=== PATIENT | female | born 1940 | race Caucasian/White ===

== ENCOUNTER 2016-03-19 12:13 | Inpatient (IN) | payer MEDICARE, OTHER ==
[~2016-03-19] VITALS: Ht 170.2 cm; Wt 128.5 kg
[~2016-03-19 12:13] MED LIST: ALLE180T33 PO; ALLO10TA PO; AMIT10TA PO; AMLO5TAB2 PO; ASPI1TAB PO; ASPI81TAEC PO; ATEN100T PO; BUPR300T34 PO; CALC1CAP31 PO; COLC1TAB5 PO; DIOV80TA3 PO; HYDR-3716 PO; HYDR12CA PO; KEFL250C6 PO; LEVO125T3 PO; LEVO150T7 PO; LEVOTHYROXINE 0.15 MG TAB (150 MCG) PO SCH; NASA1SPR; NEXI40CA PO; SIMV40TA2 PO; TOLT1CAP4 PO; VALS160T PO; VALS1TAB47 PO; VITA100066 PO; VITA100T PO; VITMTA PO; ZOLP10TA2 PO
[2016-03-19 13:50] LABS: BASO % 0.3 % (0.0-1.0); EOS # 0.4 K/mm3 (0.0-0.50); EOS % 3.2 % (0.0-3.0); LARGE UNSTAINED CELL # 0.2 K/mm3 (0.0-0.4); LARGE UNSTAINED CELL % 1.3 % (0.0-4.0); LYMPH # 0.5 K/mm3 (1.5-4.5); LYMPH % 4.2 % (24.0-44.0); MEAN CORPUSCULAR HGB CONC 32.9 g/dl (32.0-36.5); MEAN CORPUSCULAR VOLUME 94.2 fl (80.0-96.0); MONO # 0.4 K/mm3 (0.0-0.8); NEUTROPHILS # 11.1 K/mm3 (1.8-7.7); NEUTROPHILS % 88.1 % (36.0-66.0); PLATELET COUNT, AUTOMATED 275 k/mm3 (150-450); RED CELL DISTRIBUTION WIDTH 13.4 % (11.5-14.5); WHITE BLOOD COUNT 12.6 K/mm3 (4.0-10.0)
[2016-03-19 14:18] LABS: ALBUMIN 2.8 GM/DL (3.2-5.2); ALBUMIN/GLOBULIN RATIO 0.85 (1.00-1.93); ALKALINE PHOSPHATASE 99 U/L (45-117); ALT/SGPT 16 U/L (12-78); ANION GAP 12 MEQ/L (8-16); AST/SGOT 16 U/L (15-37); BILIRUBIN,DIRECT 0.1 MG/DL (0.0-0.2); BILIRUBIN,TOTAL 0.4 MG/DL (0.2-1.0); BLOOD UREA NITROGEN 42 MG/DL (7-18); CALCIUM LEVEL 8.9 MG/DL (8.8-10.2); CARBON DIOXIDE LEVEL 24 MEQ/L (21-32); CHLORIDE LEVEL 106 MEQ/L (98-107); CREATININE FOR GFR 3.04 MG/DL (0.55-1.02); GLUCOSE, FASTING 106 MG/DL (83-110); POTASSIUM SERUM 4.9 MEQ/L (3.5-5.1); SODIUM LEVEL 142 MEQ/L (136-145); TOTAL PROTEIN 6.1 GM/DL (6.4-8.2)
--- NOTE | 2016-03-19 14:40 | REP ---
PELVIS, SINGLE VIEW: Single AP view of the pelvis is performed. There is no evidence of acute fracture or dislocation. Metallic clips are seen in the pelvis. There are mild degenerative changes at each hip joint. IMPRESSION: No acute fracture or dislocation. Signed by Juliano Figueroa MD 03/19/2016 04:09 P
--- NOTE | 2016-03-19 14:41 | REP ---
LEFT HIP: Two views of the left hip are performed and demonstrate no fracture, dislocation or intrinsic bone disease. There are mild degenerative changes at the hip joint. IMPRESSION: No fracture or dislocation. Signed by Juliano Figueroa MD 03/19/2016 04:09 P
--- NOTE | 2016-03-19 14:42 | REP ---
LEFT KNEE: Four views of the left knee are performed. There is a nondisplaced fracture of the distal femur. There is no other evidence of acute fracture or dislocation. There is mild diffuse spurring. There is a joint effusion. IMPRESSION: Non displaced fracture, distal femur. Signed by Juliano Figueroa MD 03/19/2016 04:09 P
--- NOTE | 2016-03-19 14:43 | REP ---
LEFT FEMUR: AP and lateral views of the left femur are performed. There is nondisplaced fracture of the distal femur with a joint effusion a the knee. No other fracture or dislocation is seen of the visualized osseous structures. IMPRESSION: Nondisplaced fracture, distal femur. Signed by Juliano Figueroa MD 03/19/2016 04:09 P
--- NOTE | 2016-03-19 14:45 | REP ---
CHEST: AP supine film of the chest is performed. COMPARISON: 06/07/2015 There is no acute infiltrate. There is mild bibasilar fibroatelectatic change. The heart is not significantly enlarged. There is mild calcification and tortuosity of the thoracic aorta. IMPRESSION: No acute infiltrate. Mild bibasilar fibroatelectatic change. Signed by Juliano Figueroa MD 03/19/2016 04:09 P
--- NOTE | 2016-03-19 14:48 | REP ---
LEFT LOWER LEG: AP and lateral views of the left lower leg are performed. Nondisplaced fracture of the distal femur is noted. The tibia and fibula demonstrate no evidence of fracture or dislocation. There is inferior calcaneal spurring. IMPRESSION: No acute fracture or dislocation of tibia or fibula. Signed by Juliano Figueroa MD 03/19/2016 04:10 P
[2016-03-19 15:06] LABS: INR 1.03
[2016-03-19] MEDS ORDERED: VALS1TAB46 PO (15:10)
[2016-03-19] MEDS ORDERED: AMLO5TAB2 PO (15:10)
[2016-03-19] MEDS ORDERED: NEXI40CA PO (15:10)
[2016-03-19] MEDS ORDERED: MELO7.5T6 PO (15:10)
--- NOTE | 2016-03-19 15:19 | REP ---
Left lower extremity Duplex Doppler venous ultrasound: Real time compression and duplex Doppler interrogation of the left lower extremity deep venous system is performed. The left common femoral, superficial femoral and popliteal veins are fully compressible with transducer pressure and demonstrate normal spontaneous and phasic flow, without evidence of deep venous thrombosis. Impression: No evidence of deep venous thrombosis of the left lower extremity femoral popliteal venous system. Signed by Juliano Figueroa MD 03/19/2016 03:11 P
[2016-03-19] MEDS ORDERED: LR 1,000 ML IV SCH (15:30)
[2016-03-19] MEDS ORDERED: ONDANSETRON 4MG/2ML VIAL (J2405) IV PRN (15:30)
[2016-03-19] MEDS ORDERED: MORPHINE 2 MG/ML 1ML SYRINGE IV PRN (15:30)
[2016-03-19] MEDS ORDERED: MORPHINE 2 MG/ML 1ML SYRINGE As Ordered ONE (16:24)
--- NOTE | 2016-03-19 17:51 | EDDOCDS ---
Nurse's Notes [facility] Name: Ainsley Romero Age: 75 yrs Sex: Female : 1940 Arrival Date: 03/19/2016 Time: 12:13 Bed 17 Private MD: Irena Armenta N. Diagnosis: Nondisplaced transverse fracture of shaft of left femur-nondisplaced distal femur fracture;Fall (on) (from) unspecified stairs and steps;Weakness;Chest pain, unspecified Presentation: 03/19 12:25 Presenting complaint: EMS states: nonambulatory since fall 5 days ago. Seen in ED at kr3 time of fall with negative Xrays. Adult Sepsis Screening: The patient does not have new or worsening altered mentation. Patient's respiratory rate is less than 22. Systolic blood pressure is greater than 100. Patient has a qSOFA score of 0- Negative Sepsis Screen. Status: Patient is not a x ray equipment servicer or dependent. Suicide/Homicide risk assessment- the patient denies having any suicidal and/or homicidal ideations. Transition of care: patient was not received from another setting of care. 12:25 Acuity: CAROLIN Level 3 kr3 12:25 Method Of Arrival: Ambulance kr3 12:30 Presenting complaint: Patient states: pain left knee and reports unable to get up and kr3 walk. Triage Assessment: 12:36 General: Appears distressed, Behavior is cooperative. Pain: Location: left knee Pain kr3 currently is 5 out of 10 on a pain scale. The patient is triaged at the bedside. See Assessment in Nurses Notes section of ED record. Neurological: Level of Consciousness is awake, alert. GI: Abdomen is obese. Musculoskeletal: Reports painful ROM of left knee. Historical: - Allergies: IODINEIODINE CONTAINING (Anaphylaxis); IV Dye (Anaphylaxis); - Home Meds: 1. allopurinol 100 mg Oral tab 1 tab once daily 2. amitriptyline 10 mg Oral tab 3 tabs nightly 3. amlodipine 10 mg Oral tab once daily 4. atenolol 100 mg Oral tab 1 tab nightly 5. bupropion HCl 300 mg Oral Tb24 1 tab once daily as needed 6. calcitriol 0.25 mcg oral cap 1 cap once daily 7. cephalexin 250 mg Oral tab every 8 hours 8. multivitamin Oral cap daily 9. Nasacort 55 mcg Nasal spra 2 spray daily 10. simvastatin 40 mg Oral tab 1 tab nightly 11. levothyroxine 150 mcg alternate with 125 mcg daily Oral tab 1 tab once daily 12. fexofenadine 180 mg Oral tab 1 tab once daily 13. Diovan 80 mg Oral tab 1 tab once daily 14. esomeprazole magnesium 40 mg Oral cpDR 1 cap 2 times per day 15. tolterodine 2 mg oral tab 1 tab 2 times per day 16. Percocet Oral ran out quickly reports - PMHx: Environmental allergies; GERD; Gout; Hypercholesterolemia; Hypertension; Hypothyroidism; Kidney stones; Obesity; Polycystic Kidney Disease; - PSHx: kidney stone surgery; Gastric Bypass; gastric bypass reconnect; Hysterectomy; - Social history: Smoking status: Patient states was never smoker of tobacco. No barriers to communication noted, The patient speaks fluent Latvian, Speaks appropriately for age. - Family history: Not pertinent. - : The pt / caregiver states he / she is not on anticoagulants. Home medication list is obtained from the patient, [employer] import data. - Exposure Risk Screening:: None identified. Screenin:37 Screening information is obtained from the patient. Fall risk: At risk due to prior kr3 history of falls. Assistance ADL's: Requires assistance with bathing, assistance is provided by family members, dressing, assistance is provided by family members, housework, assistance is provided by family members. Abuse/DV Screen: The patient / caregiver reports he/she is: not in a situation that causes fear, pain or injury. Nutritional screening: No deficits noted. Advance Directives: Currently, there is no health care proxy. There is no Power of Stabilizing Machine Operator. home support is adequate. Assessment: 12:38 General: Appears moaning in pain with motion of left leg or touching left leg. kr3 13:30 Reassessment: Patient appears in no apparent distress at this time. resting on kr3 stretcher with eyes closed. 14:40 Reassessment: patient away from department, in UL and Xray. kr3 15:22 Reassessment: Patient appears in no apparent distress at this time. moans in pain kr3 whenever touched. If left alone appears comfortable with eyes closed. 15:37 Pain: Location: left leg, abdomen and chest Pain currently is 7 out of 10 on a pain kr3 scale. 16:50 Reassessment: Patient appears in no apparent distress at this time. Patient states kr3 feeling better. assisted to bedpan. 17:32 Reassessment: Patient appears in no apparent distress at this time. Pain: Pain kr3 currently is 4 out of 10 on a pain scale. Neurological: Level of Consciousness is awake, alert. Respiratory: Respiratory effort is even, unlabored. Derm: Skin is pink, warm & dry. Vital Signs: 12:35 BP 176 / 84; Pulse 74; Resp 18; Temp 97.6(TE); Pulse Ox 97% on R/A; Weight 117.9 kg; dem1 Height 5 ft. 7 in. (170.18 cm); Pain 6/10; 15:36 BP 146 / 97; Pulse 68; Resp 16; Pulse Ox 93% on R/A; Pain 7/10; kr3 17:31 BP 147 / 93; Pulse 70; Resp 16; Temp 98.8(O); Pulse Ox 96% on R/A; Pain 4/10; kr3 12:35 Body Mass Index 40.71 (117.90 kg, 170.18 cm) [facility] Vitals: 12:35 Log In Time N/A - ambulance arrival. [facility] ED Course: 12:15 Patient visited by Dmitri Henning PCA. jrd 12:15 Patient moved to Waiting jrd 12:24 Irena Armenta is Private Physician. jrd 12:24 Patient visited by Dmitri Henning PCA. jrd 12:26 Chante Escobar,RN is Primary Nurse. jrd 12:26 Triage Initiated kr3 12:26 Patient moved to 17 jrd 12:35 Patient visited by Dayron Chong. dem1 12:37 The patient / caregiver is instructed regarding the plan of care and ED course. kr3 Accompanied by Family Member, Patient has correct armband on for positive identification. Bed in low position. Call light in reach. Side rails up X2. 13:02 Eulalio Almaraz MD is Attending Physician. ml 13:02 Patient visited by Eulalio Almaraz MD. ml 13:32 Liver Profile Sent. kr3 13:32 Troponin Sent. kr3 13:32 CIP Sent. kr3 13:32 MED Profile Sent. kr3 13:32 CBC with Diff Sent. kr3 13:59 Patient visited by Chante Escobar RN. kr3 14:55 Pelvis Returned. EDMS 14:55 Hip, (AP/Lat) Returned. EDMS 14:55 Knee, Complete Returned. EDMS 14:55 Femur Returned. EDMS 14:55 Chest, 1 View Returned. EDMS 14:55 Tibia/Fibula Returned. EDMS 15:05 SabasBrittany is Hospitalizing Provider. ml 15:06 Inserted saline lock: 20 gauge in right antecubital area. kr3 15:18 EKG done. (by ED staff). Reviewed by Eulalio Almaraz MD. ct3 15:22 Patient visited by Caprice Cordero PCA. ct3 15:28 US Lower Extremity R/O DVT Returned. EDMS 15:29 No procedures done that require assistance. Knee immobilizer applied on left knee. kr3 Patient with positive distal sensation and brisk distal capillary refill after application. 15:30 PCR was scanned into [employer] and attached to record. gb 15:41 [facility] Payment Agreement was scanned into [employer] and attached to record. jp5 15:54 Assisted with bedpan. kr3 16:02 BLOOD CULTURES Sent. kr3 16:36 Pelvis Returned. EDMS 16:36 Hip, (AP/Lat) Returned. EDMS 16:36 Knee, Complete Returned. EDMS 16:36 Femur Returned. EDMS 16:36 Chest, 1 View Returned. EDMS 16:36 Tibia/Fibula Returned. EDMS Administered Medications: 16:27 Drug: morphine 2 mg [morphine 2 mg/mL intravenous cartridge (1 mL)] Route: IVP; Site: kr3 right antecubital; 17:14 Follow up: Response: Pain is decreased kr3 Order Results: Lab Order: CBC with Diff; SPEC'M 03/19/16 13:31 Test: WHITE BLOOD COUNT; Value: 12.6; Range: 4.0-10.0; Abnormal: Above high normal; Units: K/mm3; Status: F Test: RED BLOOD COUNT; Value: 3.98; Range: 4.00-5.40; Abnormal: Below low normal; Units: M/mm3; Status: F Test: HEMOGLOBIN; Value: 12.3; Range: 12.0-16.0; Units: g/dl; Status: F Test: HEMATOCRIT; Value: 37.5; Range: 36.0-47.0; Units: %; Status: F Test: MEAN CORPUSCULAR VOLUME; Value: 94.2; Range: 80.0-96.0; Units: fl; Status: F Test: MEAN CORPUSCULAR HEMOGLOBIN; Value: 31.0; Range: 27.0-33.0; Units: pg; Status: F Test: MEAN CORPUSCULAR HGB CONC; Value: 32.9; Range: 32.0-36.5; Units: g/dl; Status: F Test: RED CELL DISTRIBUTION WIDTH; Value: 13.4; Range: 11.5-14.5; Units: %; Status: F Test: PLATELET COUNT, AUTOMATED; Value: 275; Range: 150-450; Units: k/mm3; Status: F Test: NEUTROPHILS %; Value: 88.1; Range: 36.0-66.0; Abnormal: Above high normal; Units: %; Status: F Test: LYMPH %; Value: 4.2; Range: 24.0-44.0; Abnormal: Below low normal; Units: %; Status: F Test: MONO %; Value: 3.0; Range: 0.0-5.0; Units: %; Status: F Test: EOS %; Value: 3.2; Range: 0.0-3.0; Abnormal: Above high normal; Units: %; Status: F Test: BASO %; Value: 0.3; Range: 0.0-1.0; Units: %; Status: F Test: LARGE UNSTAINED CELL %; Value: 1.3; Range: 0.0-4.0; Units: %; Status: F Test: NEUTROPHILS #; Value: 11.1; Range: 1.8-7.7; Abnormal: Above high normal; Units: K/mm3; Status: F Test: LYMPH #; Value: 0.5; Range: 1.5-4.5; Abnormal: Below low normal; Units: K/mm3; Status: F Test: MONO #; Value: 0.4; Range: 0.0-0.8; Units: K/mm3; Status: F Test: EOS #; Value: 0.4; Range: 0.0-0.50; Units: K/mm3; Status: F Test: BASO #; Value: 0.0; Range: 0.0-0.2; Units: K/mm3; Status: F Test: LARGE UNSTAINED CELL #; Value: 0.2; Range: 0.0-0.4; Units: K/mm3; Status: F Lab Order: MED Profile; [facility] 03/19/16 13:31 Test: GLUCOSE, FASTING; Value: 106; Range: 83-110; Units: MG/DL; Status: F Test: BLOOD UREA NITROGEN; Value: 42; Range: 7-18; Abnormal: Above high normal; Units: MG/DL; Status: F Test: CREATININE FOR GFR; Value: 3.04; Range: 0.55-1.02; Abnormal: Above high normal; Units: MG/DL; Status: F Test: GLOMERULAR FILTRATION RATE; Value: 16.0; Range: >39; Abnormal: Below low normal; Status: F Test: SODIUM LEVEL; Value: 142; Range: 136-145; Units: MEQ/L; Status: F Test: POTASSIUM SERUM; Value: 4.9; Range: 3.5-5.1; Units: MEQ/L; Status: F Test: CHLORIDE LEVEL; Value: 106; Range: 98-107; Units: MEQ/L; Status: F Test: CARBON DIOXIDE LEVEL; Value: 24; Range: 21-32; Units: MEQ/L; Status: F Test: ANION GAP; Value: 12; Range: 8-16; Units: MEQ/L; Status: F Test: CALCIUM LEVEL; Value: 8.9; Range: 8.8-10.2; Units: MG/DL; Status: F Test Note: ; Units are mL/min/1.73 m2 Chronic Kidney Disease Staging per NKF: Stage I & II GFR >=60 Normal to Mildly Decreased Stage III GFR 30-59 Moderately Decreased Stage IV GFR 15-29 Severely Decreased Stage V GFR <15 Very Little GFR Left ESRD GFR <15 on LOADING UNIT OPERATOR Lab Order: CIP; [facility] 03/19/16 13:31 Test: CPK CREATINE PHOSPHOKINASE; Value: 49; Range: 26-192; Units: U/L; Status: F Test: CK-MB VALUE MASS; Value: 1.3; Range: 0.0-3.6; Units: NG/ML; Status: F Test: MB/CK RELATIVE INDEX; Value: 2.65; Range: < OR =4; Status: F Test Note: ; DIAGNOSIS CRITERIA MMB ng/ml Relative Index (RI) NON-AMI < or = 5 N/A FIGUEROA ZONE > 5 < or = 4 AMI > 5 > 4 Lab Order: Troponin; [facility] 03/19/16 13:31 Test: TROPONIN I; Value: < 0.02; Range: < 0.10; Units: NG/ML; Status: F Test Note: ; Troponin I Reference Interval for [employer] LOCI: 99th Percentile= 0.00-0.045 ng/ml Risk Stratification: <= 0.10 ng/ml Decreased Risk for Adverse Clinical Events. 0.10-1.50 ng/ml Increased Risk for Adverse Clinical Events. Evaluation of additional criterion and/or repeat testing in 2-6 hours is suggested to rule out myocardial damage. >= 1.50 ng/ml Indicative of Myocardial Injury. Lab Order: Liver Profile; [facility] 03/19/16 13:31 Test: AST/SGOT; Value: 16; Range: 15-37; Units: U/L; Status: F Test: ALT/SGPT; Value: 16; Range: 12-78; Units: U/L; Status: F Test: ALKALINE PHOSPHATASE; Value: 99; Range: 45-117; Units: U/L; Status: F Test: BILIRUBIN,TOTAL; Value: 0.4; Range: 0.2-1.0; Units: MG/DL; Status: F Test: BILIRUBIN,DIRECT; Value: 0.1; Range: 0.0-0.2; Units: MG/DL; Status: F Test: TOTAL PROTEIN; Value: 6.1; Range: 6.4-8.2; Abnormal: Below low normal; Units: GM/DL; Status: F Test: ALBUMIN; Value: 2.8; Range: 3.2-5.2; Abnormal: Below low normal; Units: GM/DL; Status: F Test: ALBUMIN/GLOBULIN RATIO; Value: 0.85; Range: 1.00-1.93; Abnormal: Below low normal; Status: F Lab Order: PT/INR; [facility] 03/19/16 13:30 Test: PROTHROMBIN TIME; Value: 13.6; Range: 12.3-14.5; Units: SECONDS; Status: F Test: INR; Value: 1.03; Status: F Test Note: ; THERAPUTIC HUMAN INR VALUES INDICATIONS NORMAL RANGES PROPHYLAXIS/TREATMENT OF: VENOUS THROMBOSIS 2.0-3.0 PULMONARY EMBOLISM 2.0-3.0 PREVENTION OF SYSTEMIC EMBOLISM FROM: TISSUE HEART VALVES 2.0-3.0 ACUTE MYOCARDIAL INFARCTION 2.0-3.0 VALVULAR HEART DISEASE 2.0-3.0 ATRIAL FIBRILLATION 2.0-3.0 MECHANICAL VALVES(HIGH RISK) 2.5-3.5 RECURRENT MYOCARDIAL INFARCTION 2.5-3.5 Lab Order: PTT; [facility] 03/19/16 13:30 Test: PARTIAL THROMBOPLASTIN TIME; Value: 31.5; Range: 26.6-37.1; Units: SECONDS; Status: F Lab Order: Type & Screen; [facility] 03/19/16 15:44 Test: BLOOD TYPE; Value: A POS; Status: F Test: AB SCREEN (INDIRECT PAPITO)GEL; Value: NEGATIVE; Status: F Lab Order: URINALYSIS; [facility] 03/19/16 16:55 Test: APPEARANCE, URINE; Value: TURBID; Range: CLEAR; Abnormal: Above high normal; Status: F Test: COLOR, URINE; Value: YELLOW; Range: YELLOW; Status: F Test: PH,URINE; Value: 6.0; Range: 5.0-9.0; Units: UNITS; Status: F Test: SPECIFIC GRAVITY URINE AUTO; Value: 1.009; Range: 1.002-1.035; Status: F Test: PROTEIN, URINE AUTO; Value: 2+; Range: NEGATIVE; Abnormal: Above high normal; Units: mg/dL; Status: F Test: GLUCOSE, URINE (UA) AUTO; Value: NEGATIVE; Range: NEGATIVE; Units: mg/dL; Status: F Test: KETONE, URINE AUTO; Value: NEGATIVE; Range: NEGATIVE; Units: mg/dL; Status: F Test: UROBILINOGEN, URINE AUTO; Value: 0.2; Range: 0.0-2.0; Units: mg/dL; Status: F Test: BILIRUBIN, URINE AUTO; Value: NEGATIVE; Range: NEGATIVE; Status: F Test: NITRITE, URINE AUTO; Value: POSITIVE; Range: NEGATIVE; Status: F Test: LEUKOCYTE ESTERASE, URINE AUTO; Value: 3+; Range: NEGATIVE; Abnormal: Above high normal; Status: F Test: BLOOD, URINE BLOOD; Value: 1+; Range: NEGATIVE; Abnormal: Above high normal; Status: F Test: WBC, URINE AUTO; Value: TNTC; Range: 0-3; Abnormal: Above high normal; Units: /HPF; Status: F Test: RBC, URINE AUTO; Value: 66; Range: 0-3; Abnormal: Above high normal; Units: /HPF; Status: F Test: BACTERIA, URINE AUTO; Value: 3+; Range: NEGATIVE; Abnormal: Above high normal; Status: F Test: SQUAMOUS EPITHELIAL CELL UR AU; Value: 0; Range: 0-6; Units: /HPF; Status: F Test: HYALINE CAST, URINE AUTO; Value: 0; Range: 0-1; Units: /LPF; Status: F Radiology Order: Chest, 1 View Test: Chest, 1 View REASON FOR EXAMINATION: fall; CHEST:; ; AP supine film of the chest is performed.; ; COMPARISON: 06/07/2015; ; There is no acute infiltrate. There is mild bibasilar fibroatelectatic change.; The heart is not significantly enlarged. There is mild calcification and; tortuosity of the thoracic aorta.; ; IMPRESSION:; ; No acute infiltrate. Mild bibasilar fibroatelectatic change.; ; ; Signed by; Juliano Figueroa MD 03/19/2016 04:09 P; Radiology Order: Pelvis Test: Pelvis REASON FOR EXAMINATION: fall; PELVIS, SINGLE VIEW:; ; Single AP view of the pelvis is performed.; ; There is no evidence of acute fracture or dislocation. Metallic clips are seen in; the pelvis. There are mild degenerative changes at each hip joint.; ; IMPRESSION:; ; No acute fracture or dislocation.; ; ; Signed by; Juliano Figueroa MD 03/19/2016 04:09 P; Radiology Order: Hip, (AP/Lat) Test: Hip, (AP/Lat) REASON FOR EXAMINATION: fall; LEFT HIP:; ; Two views of the left hip are performed and demonstrate no fracture, dislocation; or intrinsic bone disease. There are mild degenerative changes at the hip joint.; ; ; IMPRESSION:; ; No fracture or dislocation.; ; ; Signed by; Juliano Figueroa MD 03/19/2016 04:09 P; Radiology Order: Femur Test: Femur REASON FOR EXAMINATION: pain; LEFT FEMUR:; ; AP and lateral views of the left femur are performed.; ; There is nondisplaced fracture of the distal femur with a joint effusion a the; knee. No other fracture or dislocation is seen of the visualized osseous; structures.; ; IMPRESSION:; ; Nondisplaced fracture, distal femur.; ; ; Signed by; Julinao Figueroa MD 03/19/2016 04:09 P; Radiology Order: Tibia/Fibula Test: Tibia/Fibula REASON FOR EXAMINATION: pain; LEFT LOWER LEG:; ; AP and lateral views of the left lower leg are performed. Nondisplaced fracture; of the distal femur is noted. The tibia and fibula demonstrate no evidence of; fracture or dislocation. There is inferior calcaneal spurring.; ; IMPRESSION:; ; No acute fracture or dislocation of tibia or fibula.; ; ; Signed by; Juliano Figueroa MD 03/19/2016 04:10 P; Radiology Order: US Lower Extremity R/O DVT Test: US Lower Extremity R/O DVT REASON FOR EXAMINATION: pain; Left lower extremity Duplex Doppler venous ultrasound:; ; Real time compression and duplex Doppler interrogation of the left lower; extremity deep venous system is performed. The left common femoral, superficial; femoral and popliteal veins are fully compressible with transducer pressure and; demonstrate normal spontaneous and phasic flow, without evidence of deep venous; thrombosis.; ; Impression:; ; No evidence of deep venous thrombosis of the left lower extremity femoral; popliteal venous system.; ; ; Signed by; Juliano Figueroa MD 03/19/2016 03:11 P; Radiology Order: Knee, Complete Test: Knee, Complete REASON FOR EXAMINATION: pain; LEFT KNEE:; ; Four views of the left knee are performed.; ; There is a nondisplaced fracture of the distal femur. There is no other evidence; of acute fracture or dislocation. There is mild diffuse spurring. There is a; joint effusion.; ; IMPRESSION:; ; Non displaced fracture, distal femur.; ; ; Signed by; Juliano Figueroa MD 03/19/2016 04:09 P; Outcome: 15:06 Decision to Hospitalize by Provider. ml 15:29 Ultrasound Study completed. kr3 16:30 Admission hand-off: Report Faxed Fax receipt verified by Carla on PCU, room is dirty, [facility] patient informed. 17:31 Discharge Assessment: patient administered narcotics - yes. Patient was admitted to the [address] or transferred to another facility. The following High Risk Discharge criteria are identified: None. Admitted to PCU accompanied by nurse, accompanied by tech, family with patient, via stretcher, on monitor, with chart. Condition: stable. Property :Personal belongings accompany Pt. 17:50 Patient left the ED. [facility] Signatures: Dispatcher [employer] EDMS Eulalio Almaraz MD MD ml Fannie Hernandez, Reg Reg gb Chante Escobar,RN RN kr3 Caprice Cordero, NURSE EXAMINER NURSE EXAMINER ct3 Dayron Chong dem1 Dmitri Henning, NURSE EXAMINER NURSE EXAMINER jrd Lynn Shin jp5 Corrections: (The following items were deleted from the chart) 12:36 12:35 BP 176 / 84; Pulse 74bpm; Resp 18bpm; Pulse Ox 97% RA; Temp 97.6F Temporal; Pain dem1 09/08; dem1 MTDD
--- NOTE | 2016-03-19 17:51 | EDDOCDS ---
Physician Documentation [facility] Name: Ainsley Romero Age: 75 yrs Sex: Female : 1940 Arrival Date: 03/19/2016 Time: 12:13 Bed 17 Private MD: Irena Armenta N. Disposition: 03/19/16 15:06 Hospitalization ordered by Brittany Obregon for Inpatient Admission. Preliminary diagnosis are Nondisplaced transverse fracture of shaft of left femur - nondisplaced distal femur fracture, Fall (on) (from) unspecified stairs and steps, Weakness, Chest pain, unspecified. - Bed requested for PCU. - Status is Inpatient Admission. kr3 - Condition is Stable. - Problem is new. - Symptoms are unchanged. Historical: - Allergies: IODINEIODINE CONTAINING (Anaphylaxis); IV Dye (Anaphylaxis); - Home Meds: 1. allopurinol 100 mg Oral tab 1 tab once daily 2. amitriptyline 10 mg Oral tab 3 tabs nightly 3. amlodipine 10 mg Oral tab once daily 4. atenolol 100 mg Oral tab 1 tab nightly 5. bupropion HCl 300 mg Oral Tb24 1 tab once daily as needed 6. calcitriol 0.25 mcg oral cap 1 cap once daily 7. cephalexin 250 mg Oral tab every 8 hours 8. multivitamin Oral cap daily 9. Nasacort 55 mcg Nasal spra 2 spray daily 10. simvastatin 40 mg Oral tab 1 tab nightly 11. levothyroxine 150 mcg alternate with 125 mcg daily Oral tab 1 tab once daily 12. fexofenadine 180 mg Oral tab 1 tab once daily 13. Diovan 80 mg Oral tab 1 tab once daily 14. esomeprazole magnesium 40 mg Oral cpDR 1 cap 2 times per day 15. tolterodine 2 mg oral tab 1 tab 2 times per day 16. Percocet Oral ran out quickly reports - PMHx: Environmental allergies; GERD; Gout; Hypercholesterolemia; Hypertension; Hypothyroidism; Kidney stones; Obesity; Polycystic Kidney Disease; - PSHx: kidney stone surgery; Gastric Bypass; gastric bypass reconnect; Hysterectomy; - Social history: Smoking status: Patient states was never smoker of tobacco. No barriers to communication noted, The patient speaks fluent Polish, Speaks appropriately for age. - Family history: Not pertinent. - : The pt / caregiver states he / she is not on anticoagulants. Home medication list is obtained from the patient, [employer] import data. - Exposure Risk Screening:: None identified. Vital Signs: 03/19 12:35 BP 176 / 84; Pulse 74; Resp 18; Temp 97.6(TE); Pulse Ox 97% on R/A; Weight 117.9 kg / dem1 259.93 lbs; Height 5 ft. 7 in. (170.18 cm); Pain 6/10; 15:36 BP 146 / 97; Pulse 68; Resp 16; Pulse Ox 93% on R/A; Pain 7/10; kr3 17:31 BP 147 / 93; Pulse 70; Resp 16; Temp 98.8(O); Pulse Ox 96% on R/A; Pain 4/10; kr3 12:35 Body Mass Index 40.71 (117.90 kg, 170.18 cm) dem1 MDM: 13:17 IV Saline Lock ordered. ml 13:21 US Lower Extremity R/O DVT Ordered. EDMS 13:21 Chest, 1 View Ordered. EDMS 13:21 Pelvis Ordered. EDMS 13:21 Hip, (AP/Lat) Ordered. EDMS 13:21 Femur Ordered. EDMS 13:21 Tibia/Fibula Ordered. EDMS 13:21 Knee, Complete Ordered. EDMS 13:21 CBC with Diff Ordered. EDMS 13:21 MED Profile Ordered. EDMS 13:21 CIP Ordered. EDMS 13:21 Troponin Ordered. EDMS 13:21 Liver Profile Ordered. EDMS 14:26 CBC with Diff Reviewed. ml 14:26 MED Profile Reviewed. ml 14:26 Liver Profile Reviewed. ml 14:26 CIP Reviewed. ml 14:26 Troponin Reviewed. ml 14:28 Financial registration complete. 5 14:47 BED REQUEST+ADM ordered. EDMS 14:50 Type & Screen Ordered. EDMS 14:50 PT/INR Ordered. EDMS 14:51 PTT Ordered. EDMS 15:04 Knee Immobilizer ordered. ml 15:09 PT/INR Reviewed. ml 15:09 Chest, 1 View Reviewed. ml 15:09 Pelvis Reviewed. ml 15:09 Hip, (AP/Lat) Reviewed. ml 15:09 Femur Reviewed. ml 15:09 Tibia/Fibula Reviewed. ml 15:09 Knee, Complete Reviewed. ml 15:10 ECG WITH READING ER PHYS+CARDIAG ordered. EDMS 15:30 PCR was scanned into [employer] and attached to record. gb 15:40 Admission / Observation Status ordered. EDMS 15:41 REGULAR DIET ordered. EDMS 15:41 CARDIAC MARKER PANEL Ordered. EDMS 15:41 [facility] Payment Agreement was scanned into [employer] and attached to record. jp5 15:44 PHYSICAL THERAPY EVAL & TREAT ordered. EDMS 15:44 Foot, complete Ordered. EDMS 15:45 URINALYSIS Ordered. EDMS 15:45 URINE CULTURE Ordered. EDMS 15:45 BLOOD CULTURES Ordered. EDMS 15:45 BLOOD CULTURES Ordered. EDMS 16:27 morphine 2 mg IVP once ordered. kr3 Administered Medications: 16:27 Drug: morphine 2 mg [morphine 2 mg/mL intravenous cartridge (1 mL)] Route: IVP; Site: kr3 right antecubital; 17:14 Follow up: Response: Pain is decreased kr3 Signatures: Dispatcher [employer] EDMS Eulalio Almaraz MD MD ml Sleeman, Kacey, RN RN [facility] Fannie Hernandez Reg Reg gb Robie, Kathleen,RN RN kr3 Lynn Shin jp5 The chart was reviewed and I authenticate all verbal orders and agree with the evaluation and treatment provided.Attachments: 15:41 [facility] Payment Agreement [email or web address] MTDD
[2016-03-19 18:00] VITALS: BP 164/96
--- NOTE | 2016-03-19 19:11 | ECGEPIP ---
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
[2016-03-19 19:46] VITALS: BP 136/76
[2016-03-19] MEDS: FEXOFENADINE 60 MG TAB PO SCH (21:17)
[2016-03-19] MEDS: cefTRIAXone SOD 1 GM in D5W MINI-BAG PLUS 50 ML IV SCH (21:17)
[2016-03-19] MEDS: CALCITRIOL 0.25 MCG CAP (S0169) PO SCH (21:17)
[2016-03-19] MEDS: buPROPion **XL** TABLET 150MG (WELLBUTRIN XL) PO SCH (21:18)
[2016-03-19] MEDS: MULTIVITAMINS/MINERALS THERAP 1 TAB PO SCH (21:18)
[2016-03-19] MEDS: ALLOPURINOL 100 MG TAB PO SCH (21:18)
[2016-03-19] MEDS: ATENOLOL 50 MG TAB PO SCH (21:18)
[2016-03-19] MEDS: ATORVASTATIN 20 MG TAB PO SCH (21:18)
[2016-03-19] MEDS: AMITRIPTYLINE 10 MG TAB PO SCH (21:18)
[2016-03-19] MEDS: MIRALAX *UNIT DOSE* 17GM PACKET PO SCH (21:19)
[2016-03-19] MEDS: SENOKOT S TAB PO SCH (21:19)
[2016-03-19] MEDS: PANTOPRAZOLE 40MG TAB (PROTONIX) PO SCH (21:19)
[2016-03-19] MEDS: HEPARIN SOD (PORCINE) 5000 UNITS/ML VIAL SC SCH (21:21)
[2016-03-19] MEDS: VALSARTAN 80 MG TAB (DIOVAN) PO SCH (21:23)
[2016-03-19] MEDS: amLODIPine 5 MG TAB PO SCH (21:23)
[2016-03-19] MEDS: TOLTERODINE TARTRATE 2 MG LA CAP (DETROL LA) PO SCH (21:27)
[2016-03-19] MEDS: PERCOCET 5MG/325MG TAB PO PRN (21:27)
[2016-03-19 23:21] VITALS: BP 153/72
--- NOTE | 2016-03-20 00:03 | HPE ---
DATE OF ADMISSION: 03/19/2016 PRIMARY CARE PROVIDER: AFTAB Gonzales CHIEF COMPLAINT: Unable to ambulate with left knee pain. HISTORY OF THE PRESENT ILLNESS: This is a 75-year-old female patient with underlying medical history of gastroesophageal reflux disease (GERD), gout, dyslipidemia, hypertension, hypothyroidism, kidney stones, obesity, polycystic kidney disease. As per patient, patient had a fall about 5 days ago, was seen in the emergency department (ED) with negative x-rays. Subsequently, the patient was sent home, but since the patient was home, she is not able to ambulate. As per patient, patient has multiple falls, on average falling once a month and prior to 5 days ago, the patient had a fall in which she tripped on some rugs and had her left toe that was slightly injured, as per . Subsequently, the patient fell again, the next day subsequently was seen in the ED and subsequently discharged 5 days ago, but since then, the patient has not been able to ambulate. Reported persistent left knee pain and was brought to the hospital today. Further imaging studies show the patient has a nondisplaced left distal femur fracture. Patient at baseline is obese, is supposed to ambulate with a cane but does not use a cane while she is in the house. Denies any head trauma. Denies any other complaint other than generalized weakness but patient does report pleuritic chest discomfort, substernal, worsens with breathing. EKG has been negative. ALLERGIES: To IV CONTRAST, IODINE. PAST MEDICAL HISTORY: Environmental allergies. GERD. Gout. Dyslipidemia. Hypertension. Hypothyroidism. Kidney stones. Obesity. Polycystic kidney disease. Chronic kidney disease, stage IV. PAST SURGICAL HISTORY: Kidney surgery, lithotripsy. Gastric bypass and gastric bypass reversal. Hysterectomy. SOCIAL HISTORY: The patient denies history of smoking. Drinks a cup of wine per night. FAMILY HISTORY: Noncontributory. HOME MEDICATIONS: - The patient takes: - allopurinol 100 mg by mouth daily - amitriptyline 30 mg by mouth nightly - Norvasc 5 mg by mouth daily - atenolol 100 mg by mouth nightly - bupropion 300 mg by mouth daily - calcitriol 0.25 mg by mouth daily - Nexium 40 mg by mouth twice a day - [place] 180 mg by mouth daily - Synthroid 150 mcg by mouth every other day and 125 mcg by mouth every other day - meloxicam 7.5 mg by mouth daily - multivitamin one tablet by mouth daily - Nasacort nasal spray daily - Zocor 40 mg by mouth nightly - Tolterodine tartrate 2 mg by mouth daily - valsartan 80 mg by mouth daily REVIEW OF SYSTEMS: The patient denies any headaches, lightheadedness, vision change, hearing change. Denies any fever, chills. Denies any coughing, shortness of breath. Denies any nausea or vomiting. Reported pleuritic chest pain. Denies any palpitations. Denies any abdominal pain, diarrhea, constipation. Denies any dysuria, hematuria. Reported left knee pain. PHYSICAL EXAMINATION: VITAL SIGNS: Temperature was 97.6, blood pressure 176/84, pulse 74, respiratory rate 18, pulse oximetry 97% on room air. GENERAL: Patient morbidly obese, in no acute distress. HEENT: Normocephalic, atraumatic. PULMONARY: Bilaterally clear to auscultation. CARDIAC: Regular rate and rhythm. Normal S1, S2. ABDOMEN: Obese, soft, nontender. Positive bowel sounds. EXTREMITIES: Left knee slightly more swollen and warmth compared to right. Dorsalis pedis (DP), posterior tibial (PT) pulses 2+. Able to move bilateral foot. No significant edema bilateral lower extremities. EKG: Sinus rhythm at a rate of 67. No ST segment changes. Normal EKG. LABORATORY: WBC 12.6, hemoglobin and hematocrit 12.3 over 37.5, platelets 275. Chemistry: Sodium 142, potassium 4.9, chloride 106, bicarbonate 26, BUN 42, creatinine 3.04. Cardiac enzymes negative times two. ASSESSMENT AND PLAN: This is a 75-year-old female patient with underlying medical history of environmental allergies, gastroesophageal reflux disease, gastric bypass and reversal gastric bypass, gout, dyslipidemia, hypertension, hypothyroidism, kidney stone, obesity, polycystic kidney disease, chronic kidney disease. Patient presented status post fall with nondisplaced distal femur fracture. PROBLEMS: 1. Fall with nondisplaced distal left femur fracture; orthopedic surgery, Dr. Pratt has been consulted. As per orthopedic surgery, knee immobilization, physical therapy and weightbearing status as per orthopedic surgery. Dr. Pratt has been consulted, pain regimen prescribed, bowel regimen prescribed. 2. Urinary tract infection (UTI). Rocephin. Followup cultures. 3. Acute on chronic renal insufficiency. Baseline creatinine 2.4 to 2.5. Currently creatinine of 3. IV fluids for gentle hydration. Continue to monitor BUN and creatinine. 4. Depression. Continue home medications. 5. Hypertension. Continue Norvasc, atenolol, losartan. Monitor blood pressure. 6. Dyslipidemia. Continue statin. 7. Constipation. Continue bowel medications. 8. Hypothyroidism. Continue Synthroid. Will followup thyroid panel. 9. Chest pain. Cardiac enzymes appreciated. EKG negative. 10. Morbid obesity complicating care. 11. Deep vein thrombosis (DVT) prophylaxis. Heparin subcutaneously. DISPOSITION: Pending orthopedic consultation. Ultrasound Doppler negative for DVT. Possible disposition correction versus short-term rehabilitation. Patient and family services consulted.
[2016-03-20 04:43] VITALS: BP 152/89
[2016-03-20] MEDS: HEPARIN SOD (PORCINE) 5000 UNITS/ML VIAL SC SCH ×3 (05:18→22:06)
[2016-03-20] MEDS: LEVOTHYROXINE 0.15 MG TAB (150 MCG) PO SCH (05:18)
[2016-03-20] MEDS: ACETAMINOPHEN TAB 650MG DOSE (2X325MG) PO PRN ×2 (05:21→16:28)
[2016-03-20 05:55] LABS: MEAN CORPUSCULAR HEMOGLOBIN 30.6 pg (27.0-33.0); MEAN CORPUSCULAR HGB CONC 32.5 g/dl (32.0-36.5); MEAN CORPUSCULAR VOLUME 94.3 fl (80.0-96.0); RED CELL DISTRIBUTION WIDTH 14.3 % (11.5-14.5); WHITE BLOOD COUNT 10.7 K/mm3 (4.0-10.0)
[2016-03-20 06:16] LABS: CALCIUM LEVEL 8.9 MG/DL (8.8-10.2); CREATININE FOR GFR 3.08 MG/DL (0.55-1.02); GLOMERULAR FILTRATION RATE 15.8 (>39); MAGNESIUM LEVEL 2.3 MG/DL (1.8-2.4); POTASSIUM SERUM 4.3 MEQ/L (3.5-5.1); THYROXINE (T4) 8.5 UG/DL (4.5-12.0)
[2016-03-20 07:30] VITALS: BP 190/82
[2016-03-20] MEDS: ALLOPURINOL 100 MG TAB PO SCH (08:54)
[2016-03-20] MEDS: buPROPion **XL** TABLET 150MG (WELLBUTRIN XL) PO SCH (08:54)
[2016-03-20] MEDS: MIRALAX *UNIT DOSE* 17GM PACKET PO SCH ×2 (08:54→20:35)
[2016-03-20] MEDS: SENOKOT S TAB PO SCH ×2 (08:54→20:36)
[2016-03-20] MEDS: VALSARTAN 80 MG TAB (DIOVAN) PO SCH (08:54)
[2016-03-20] MEDS: PANTOPRAZOLE 40MG TAB (PROTONIX) PO SCH ×2 (08:54→20:36)
[2016-03-20] MEDS: TOLTERODINE TARTRATE 2 MG LA CAP (DETROL LA) PO SCH (08:55)
[2016-03-20] MEDS: amLODIPine 5 MG TAB PO SCH (08:55)
[2016-03-20] MEDS: FEXOFENADINE 60 MG TAB PO SCH (08:55)
[2016-03-20] MEDS: CALCITRIOL 0.25 MCG CAP (S0169) PO SCH (08:55)
[2016-03-20] MEDS ORDERED: MOM 30ML SUSPENSION UDC PO SCH (09:00)
--- NOTE | 2016-03-20 09:00 | REP ---
AP and lateral view of left foot 03/19/2016 Indication: Fall Findings: There is medial angulation flexion deformities within the PIP joints of the second and third digit somewhat limiting evaluation. There is no visualized acute fracture or dislocation identified. There is a moderate plantar calcaneal spur. Small amount of spurring is seen within the anterior proximal foot on the dorsal aspect of the tarsal navicular. Impression: lmited two-view exam with flexion deformities of the second and third PP joints. There is no visualized acute fracture or dislocation. Moderate plantar calcaneal spur If there is high index of suspicion for fracture, then would recommend complete four view left series Signed by Sara Leigh MD 03/20/2016 08:51 A
--- NOTE | 2016-03-20 11:02 | IPNPDOC ---
Assessment/Plan Date Seen The patient was seen on 03/20/16. Problems Problems: (1) NAY (acute kidney injury) Status: Acute Problem Text: Creatinine = 3. This is higher than her baseline. She was given Meloxicam script in the ER the otehr day [facility] may have contributed to her worsening renal function. I will hold ARB, start IVF, consult renal who follows her as outpatient and saw her last admission as well. (2) UTI (urinary tract infection) Status: Acute Problem Text: present on admission - IV Rocephin ordered U/C and B/C pending (3) Fracture, femur, distal Status: Acute Response to Treatment: Stable Problem Text: I am told that Ortho saw the patient and recommended bedrest - Non-surgical fracture. no adequate brace available (4) Hypertension Status: Chronic Response to Treatment: Worse Problem Text: Hold ARB due to NAY Increase Norvasc (5) Anemia Status: Chronic Response to Treatment: Stable Problem Text: Recent GI bleed (see previous admission) - No further active bleeding. Hgb stable (6) Hypothyroidism Status: Chronic Response to Treatment: Stable Problem Text: on Levothyroxine (7) Hyperlipidemia Status: Chronic (8) Constipation Status: Chronic Problem Text: Bowel care added Plan / VTE VTE Prophylaxis Ordered?: Yes (SQ heparin) Subjective Review of Systems CC/HPI The patient is a 75-year-old female admitted with a reason for visit of Fx Femur Distal. Events since last encounter Left knee pain persists. C/O dry mouth. No SOB, Orthopnea, CP Constitutional: Denies: Chills, Fever Pulmonary: Denies: Cough, Dyspnea Cardiovascular: Denies: Chest Pain, Palpitations Gastrointestinal: Reports: Constipation (NO BM in 5 days), Denies: Abdominal Pain, Diarrhea, Nausea, Vomiting Genitourinary: Denies: Dysuria Objective Physical Examination General Exam: Positive: Alert (Speech is thick due to dry tongue) Chest Exam: Positive: Clear to auscultation, Normal air movement Heart Exam: Positive: Rate Normal Abdomen Exam: Positive: Normal bowel sounds, Soft, Negative: Tenderness Extremity Exam: Negative: Edema Vital Signs/I&O Vital Signs Date Time Temp Pulse Resp B/P Pulse Ox O2 Delivery O2 Flow Rate FiO2 03/20/16 08:54 190/82 03/20/16 07:30 97.8 60 20 94 Room Air I&O- Last 24 Hours up to 6 AM 03/20/16 06:00 Intake Total 410 ml Output Total 650 ml Balance -240 ml Laboratory Data Labs 24H Laboratory Tests 2 03/19/16 13:30: Activated Partial Thromboplast Time 31.5, Prothromb Time International Ratio 1.03, Prothrombin Time 13.6 03/19/16 13:31: Aspartate Amino Transf (AST/SGOT) 16, Alanine Aminotransferase (ALT/SGPT) 16, Alkaline Phosphatase 99, Total Bilirubin 0.4, Direct Bilirubin 0.1, Albumin 2.8L , Albumin/Globulin Ratio 0.85L, Anion Gap 12, White Blood Count 12.6H, Red Blood Count 3.98L, Hemoglobin 12.3, Hematocrit 37.5, Mean Corpuscular Volume 94.2, Mean Corpuscular Hemoglobin 31.0, Mean Corpuscular Hemoglobin Concent 32.9 , Red Cell Distribution Width 13.4, Platelet Count 275, Neutrophils (%) (Auto) 88.1H, Lymphocytes (%) (Auto) 4.2L, Monocytes (%) (Auto) 3.0, Eosinophils (%) ( Auto) 3.2H, Basophils (%) (Auto) 0.3, Neutrophils # (Auto) 11.1H, Lymphocytes # (Auto) 0.5L, Monocytes # (Auto) 0.4, Eosinophils # (Auto) 0.4, Basophils # (Auto ) 0.0, Calcium Level 8.9, Creatine Kinase MB 1.3, Creatine Kinase MB Relative Index 2.65, Glomerular Filtration Rate 16.0L, Large Unclassified Cells # 0.2, Large Unclassified Cells % 1.3, Total Creatine Kinase 49, Total Protein 6.1L, Troponin I < 0.02 03/19/16 16:55: Urine Amorphous Sediment , Urine Appearance TURBIDH, Urine Color YELLOW, Urine pH 6.0, Urine Specific [place] 1.009, Urine Protein 2+H, Urine Glucose (UA) NEGATIVE, Urine Ketones NEGATIVE, Urine Urobilinogen 0.2, Urine Bilirubin NEGATIVE, Urine Leukocyte Esterase 3+H, Urine Bacteria (Auto) 3+H, Urine Blood 1 +H, Urine Calcium Carbonate Cryst(Auto) , Urine Calcium Oxalate Cryst (Auto) , Urine Calcium Phosphate [place] (Auto) , Urine Cellular Casts , Urine Cystine Crystals , Urine Granular Casts (Auto) , Urine Hyaline Casts (Auto) 0, Urine Leucine Crystals , Urine Mucus (Auto) , Urine Nitrite POSITIVE, Urine Oval Fat Bodies (Auto) , Urine RBC (Auto) 66H, Urine Renal Epithelial Cells , Urine Sperm (Auto) , Urine Squamous Epithelial Cells 0, Urine Transitional Epithelial Cells , Urine Trichomonas (Auto) , Urine Triple Phosphate Cryst (Auto) , Urine Tyrosine Crystals , Urine Uric Acid Crystals (Auto) , Urine WBC (Auto) TNTCH, Urine Waxy Casts (Auto) , Urine Yeast-Like Cells (Auto) 03/19/16 19:10: Creatine Kinase MB 1.0, Creatine Kinase MB Relative Index 2.56, Total Creatine Kinase 39, Troponin I < 0.02 03/20/16 05:06: Anion Gap 13, Blood Urea Nitrogen 47H, Creatinine 3.08H, Sodium Level 141, Potassium Level 4.3, Chloride Level 107, Carbon Dioxide Level 21, Calcium Level 8.9, Free Thyroxine Index 3.2, Glomerular Filtration Rate 15.8L, Magnesium Level 2.3, Thyroid Stimulating Hormone (TSH) 12.600H, Thyroxine (T4) 8.5, Triiodothyronine (T3) Uptake 38 CBC/BMP Laboratory Tests 03/19/16 13:31 Red Blood Count 3.98 L, Mean Corpuscular Volume 94.2, Mean Corpuscular Hemoglobin 31.0, Mean Corpuscular Hemoglobin Concent 32.9, Red Cell Distribution Width 13.4, Neutrophils (%) (Auto) 88.1 H, Lymphocytes (%) (Auto) 4.2 L, Monocytes (%) (Auto) 3.0, Eosinophils (%) (Auto) 3.2 H, Basophils (%) ( Auto) 0.3, Neutrophils # (Auto) 11.1 H, Lymphocytes # (Auto) 0.5 L, Monocytes # (Auto) 0.4, Eosinophils # (Auto) 0.4, Basophils # (Auto) 0.0 03/20/16 05:06 Red Blood Count 3.54 L, Mean Corpuscular Volume 94.3, Mean Corpuscular Hemoglobin 30.6, Mean Corpuscular Hemoglobin Concent 32.5, Red Cell Distribution Width 14.3, Calcium Level 8.9 Microbiology Microbiology 03/19/16 Blood Culture, Received Pending 03/19/16 Blood Culture, Received Pending 03/19/16 Urine Culture, Received Pending ROSALIA WESTBROOK PA-C Mar 20, 2016 11:02
[2016-03-20] MEDS ORDERED: CEPH250T PO (12:40)
[2016-03-20 12:44] VITALS: BP 134/60
[2016-03-20] MEDS: **hydrALAZINE** 10 MG TAB PO SCH ×3 (12:45→20:35)
[2016-03-20] MEDS: NS 0.45% 1,000 ML IV SCH (12:46)
[2016-03-20 16:25] VITALS: BP 144/66
[2016-03-20 18:15] VITALS: BP 145/66
--- NOTE | 2016-03-20 20:30 | REPUSA ---
CLINICAL HISTORY: Fall. TECHNIQUE: Multiple axial CT images were obtained through the brain without IV contrast material. COMMENTS: There is normal configuration of sella turcica. There are no intra or extra-axial collections. There is no mass effect or midline shift. There is no evidence of hematoma formation. No hydrocephalus is p resent. The ventricles are symmetrical. No abnormal calcifications are present. There is diffuse age-appropriate cerebellar and cerebral atrophy with proportionally dilated ventricl es and cortical sulci. There are bilateral periventricular and subcortical white matter hypolucencies compatible with mild c hronic microvascular disease. Otherwise, no significant focal abnormalities are seen either in the posterior fossa or supratentoria l compartment. IMPRESSION: 1. Age-appropriate cerebellar and cerebral atrophy. 2. Mild chronic microvascular disease. 3. No evidence of acute intracranial pathology. Thank you for your kind referral of this patient.
[2016-03-20] MEDS: cefTRIAXone SOD 1 GM in D5W MINI-BAG PLUS 50 ML IV SCH (20:34)
[2016-03-20] MEDS: AMITRIPTYLINE 10 MG TAB PO SCH (20:35)
[2016-03-20] MEDS: ATORVASTATIN 20 MG TAB PO SCH (20:35)
[2016-03-20] MEDS: ATENOLOL 50 MG TAB PO SCH (20:35)
[2016-03-20] MEDS: NYSTATIN 100,000 UNITS/GM TOPICAL PWD 15 GM TOP SCH (20:36)
[2016-03-20] MEDS: MULTIVITAMINS/MINERALS THERAP 1 TAB PO SCH (20:36)
[2016-03-20] MEDS: PERCOCET 5MG/325MG TAB PO PRN (20:36)
[2016-03-20 22:00] VITALS: BP 131/60
[2016-03-21] MEDS: NS 0.45% 1,000 ML IV SCH ×2 (00:23→16:31)
[2016-03-21] MEDS: ACETAMINOPHEN TAB 650MG DOSE (2X325MG) PO PRN ×3 (00:24→16:32)
[2016-03-21] MEDS: HEPARIN SOD (PORCINE) 5000 UNITS/ML VIAL SC SCH ×3 (05:08→21:17)
[2016-03-21] MEDS: LEVOTHYROXINE 0.125 MG TAB (125 MCG) PO SCH (05:08)
[2016-03-21 06:00] VITALS: BP 180/83
[2016-03-21 07:07] LABS: MEAN CORPUSCULAR HEMOGLOBIN 31.4 pg (27.0-33.0); MEAN CORPUSCULAR HGB CONC 33.1 g/dl (32.0-36.5); MEAN CORPUSCULAR VOLUME 94.8 fl (80.0-96.0); RED CELL DISTRIBUTION WIDTH 13.3 % (11.5-14.5); WHITE BLOOD COUNT 8.2 K/mm3 (4.0-10.0)
[2016-03-21 07:27] LABS: CALCIUM LEVEL 8.8 MG/DL (8.8-10.2); CREATININE FOR GFR 3.35 MG/DL (0.55-1.02); GLOMERULAR FILTRATION RATE 14.3 (>39); MAGNESIUM LEVEL 2.5 MG/DL (1.8-2.4); POTASSIUM SERUM 4.6 MEQ/L (3.5-5.1)
--- NOTE | 2016-03-21 08:52 | IPNPDOC ---
Assessment/Plan Date Seen The patient was seen on 03/21/16. Problems Problems: (1) NAY (acute kidney injury) Status: Acute Problem Text: Creatinine = 3. This is higher than her baseline. She was given Meloxicam script in the ER the otehr day whcih may have contributed to her worsening renal function. I will hold ARB, start IVF, consult renal who follows her as outpatient and saw her last admission as well. 03/21 - Renal function continues to worsen Nephrology consulted - await further input Getting IVF at 80cc/hour, but also on Hydralazine (2) UTI (urinary tract infection) Status: Acute Problem Text: present on admission - IV Rocephin ordered 03/21 - U/C grew>1000,000 Pseudomonas. Switch to Fortaz at renal dose B/C negative (3) Fracture, femur, distal Status: Acute Response to Treatment: Stable Problem Text: I am told that Ortho saw the patient and recommended bedrest - Non-surgical fracture. no adequate brace available 03/21 - Ortho note hand written in chart - reviewed today. Bedrest as above. (4) Hypertension Status: Chronic Response to Treatment: Worse Problem Text: Hold ARB due to NAY Increase Norvasc 03/21 - BP remains high - Norvasc dose increased yesterday, but only got 5 mg dose. She will get 7.5 mg today and is on Hydralazine as well (5) Constipation Status: Chronic Problem Text: Bowel care added 03/21 - still no BM. MOM given by ortho but patient in ARF and now with hypermagnesemia. D/C MOM. Increase Miralax (6) Anemia Status: Chronic Response to Treatment: Stable Problem Text: Recent GI bleed (see previous admission) - No further active bleeding. Hgb stable (7) Dysarthria Status: Acute Response to Treatment: Stable Problem Text: speech is thick and slow. PAtient has some trouble with word finding, but had that at last admission as well. Thick speech seems to be related to dry mucouis membranes. CT head negative for acute event (8) Hypothyroidism Status: Chronic Response to Treatment: Stable Problem Text: on Levothyroxine TSH high, but likely related to acute illness. Repeat once stable (9) Hyperlipidemia Status: Chronic (10) Costochondritis Status: Acute Problem Text: Add K-pad Encourage IS. CXR negative on admission. Lungs clear on exam. Sats normal Plan / VTE VTE Prophylaxis Ordered?: Yes (SQ heparin) Subjective Review of Systems CC/HPI The patient is a 75-year-old female admitted with a reason for visit of Fx Femur Distal. Events since last encounter C/O anterior rib pain/tenderness - worse with deep breath. Slight cough. no Dyspnea. Constitutional: Denies: Chills, Fever Pulmonary: Reports: Cough, Other Symptoms (anterior rib pain with deep breaths) , Denies: Dyspnea Cardiovascular: Reports: Chest Pain (see above) Gastrointestinal: Denies: Abdominal Pain, Constipation, Diarrhea, Nausea, Vomiting Objective Physical Examination General Exam: Positive: Alert (Speech is thick due to dry tongue - seems mildly dysarthric) Chest Exam: Positive: Clear to auscultation, Normal air movement, Other ( tender costochondral area anterior ribs at lower sternal border) Heart Exam: Positive: Rate Normal Abdomen Exam: Positive: Normal bowel sounds, Soft, Negative: Tenderness Extremity Exam: Negative: Edema Vital Signs/I&O Vital Signs Date Time Temp Pulse Resp B/P Pulse Ox O2 Delivery O2 Flow Rate FiO2 03/21/16 06:00 97.9 65 16 180/83 96 Room Air I&O- Last 24 Hours up to 6 AM 03/21/16 06:00 Intake Total 3142 ml Output Total 825 ml Balance 2317 ml Laboratory Data Labs 24H Laboratory Tests 2 03/21/16 06:40: Anion Gap 10, Blood Urea Nitrogen 54H, Creatinine 3.35H, Sodium Level 139, Potassium Level 4.6, Chloride Level 105, Carbon Dioxide Level 24, Calcium Level 8.8, Glomerular Filtration Rate 14.3L, Magnesium Level 2.5H CBC/BMP Laboratory Tests 03/21/16 06:40 Calcium Level 8.8, Red Blood Count 3.41 L, Mean Corpuscular Volume 94.8, Mean Corpuscular Hemoglobin 31.4, Mean Corpuscular Hemoglobin Concent 33.1, Red Cell Distribution Width 13.3 Microbiology Microbiology 03/19/16 Blood Culture - Preliminary, Resulted No growth after 24 hours . All specim... 03/19/16 Blood Culture - Preliminary, Resulted No growth after 24 hours . All specim... 03/19/16 Urine Culture - Final, Complete Pseudomonas Aeruginosa ROSALIA WESTBROOK PA-C Mar 21, 2016 08:52
[2016-03-21] MEDS ORDERED: BISACODYL 5 MG TAB PO SCH (09:00)
[2016-03-21] MEDS ORDERED: INFLUENZA VIRUS VACCINE HIGH DOSE 0.5 ML SYRINGE (90662) IM ONE (09:00)
[2016-03-21] MEDS ORDERED: D5W IV SCH ×2 (09:00→10:00)
[2016-03-21] MEDS ORDERED: PREVNAR 13 VACCINE SYRINGE (CPT CODE:90670) IM ONE (09:00)
[2016-03-21] MEDS ORDERED: CEFTAZIDIME IV SCH ×2 (09:00→10:00)
[2016-03-21] MEDS: MIRALAX *UNIT DOSE* 17GM PACKET PO SCH ×2 (09:41→21:00)
[2016-03-21] MEDS: buPROPion **XL** TABLET 150MG (WELLBUTRIN XL) PO SCH (09:41)
[2016-03-21] MEDS: SENOKOT S TAB PO SCH ×2 (09:41→21:00)
[2016-03-21] MEDS: PANTOPRAZOLE 40MG TAB (PROTONIX) PO SCH ×2 (09:42→21:20)
[2016-03-21] MEDS: **hydrALAZINE** 10 MG TAB PO SCH ×3 (09:42→21:19)
[2016-03-21] MEDS: amLODIPine 5 MG TAB PO SCH (09:42)
[2016-03-21] MEDS: ALLOPURINOL 100 MG TAB PO SCH (09:42)
[2016-03-21] MEDS: CALCITRIOL 0.25 MCG CAP (S0169) PO SCH (09:42)
[2016-03-21] MEDS: NYSTATIN 100,000 UNITS/GM TOPICAL PWD 15 GM TOP SCH ×2 (09:43→21:00)
--- NOTE | 2016-03-21 11:32 | CR ---
DATE OF CONSULTATION: 03/20/2016 HISTORY: A 75-year-old female who has been complaining of pain in her knee for some time. Original x-rays in the emergency room were not interpreted as showing a fracture, although in retrospect it appears to be present. The patient had new x-rays yesterday, and I was called to render an opinion about those. The patient was admitted to the hospital, bed rest. I asked the emergency room folks to try to fit her with a knee immobilizer. The patient was seen early childhood specialist hours of 03/20/2016 in her hospital bed on the floor. The patient was alert and oriented. She was relatively comfortable in the knee immobilizer. The patient has a rather large leg, one that will be difficult to brace. She has mild swelling. Her tenderness is in the thigh area on the left. Distal neurovascular status is intact. The fracture pattern is a very low supracondylar fracture of the very distal femur. The fractures is at a position where it would be very difficult to obtain what would be called stable fixation. Fixation that would allow good range of motion of the knee and her ability to get up at least in my opinion I think it is too low for operative treatment. In addition, the patient is a large woman. The question of whether her upper body strength would allow her to say non-weightbearing for the requisite amount of time. Given the size of the leg and the patient, the low nature of the fracture, it argues for conservative treatment in my estimation. It will require vigilance on the nursing crew to make sure she does not get a bed sore and that she do her exercises while in bed, especially ankle pumps and such to try to prevent deep venous thrombosis (DVT). She already has sequential compression stockings ordered. Although, they were nonoperative on the left leg this morning. The patient could have thromboembolic deterrent (MARCOS) stockings applied and the sequentials bilaterally. While the patient is in bed, it would okay to remove the knee immobilizer and rest the knee on a pillow, but if the patient is going to be shifted for any reason the knee immobilizer should be on I believe. New x-ray should be taken AP and lateral of the very distal femur or left knee films in about 7-10 days to make sure there has been no shift in position, sooner if the patient somehow puts her weight down on the leg.
[2016-03-21] MEDS ORDERED: FLEET ENEMA PR PRN (14:45)
--- NOTE | 2016-03-21 15:16 | REP ---
CT of the abdomen and pelvis without contrast 03/21/2016 Indication: Renal failure, hydronephrosis, possible kidney stones Comparison: CT of the abdomen and pelvis without contrast, 03/05/2016 Findings: There is minimal right basilar pleural effusion and minimal bibasilar atelectatic changes. 2.7 cm low density lesion of posterior segment right lobe of liver is most compatible with a cyst and unchanged. Spleen is of normal size. Moderate atrophic changes with fatty infiltration seen throughout pancreas. There has been a prior cholecystectomy. Surgical changes are noted consistent with prior gastric bypass procedure. Small bowel is without obvious obstruction. The terminal ileum is normal. Appendix is not visualized and may be surgically absent. There are extensive cortical cysts within the kidneys bilaterally consistent with polycystic kidney disease. There is no hydronephrosis or obstructing ureteral calculi bilaterally. The abdominal aorta has moderate atherosclerotic changes, without aneurysm. There are a few small bilateral nonspecific retroperitoneal nodes. There is a 12 mm umbilical hernia containing omental fat only. Bladder is normal. Uterus is absent. There is moderate diffuse retained colonic stool yet most pronounced within the left colon with mild colonic distension. There is sparing of the rectosigmoid sigmoid colon. There is sigmoid diverticulosis. There is no definitive pneumatosis coli seen throughout colon. There is no free air or ascites. Impression1. Polycystic kidney disease bilaterally. No hydronephrosis or obstructing ureteral calculi bilaterally.2. Colonic distension especially the left colon without definitive evidence of pneumatosis coli. There is moderate diffuse retained colonic stool yet most pronounced in the left colon, with sparing of rectosigmoid colon. Sigmoid diverticulosis. 3. No free intraperitoneal air or ascites. 4. Stable complex 2.7 cm cyst or cystic lesion within the posterior segment right lobe of liver with internal septations. Interval follow-up recommended Signed by Sara Leigh MD 03/26/2016 01:49 P
[2016-03-21 16:00] VITALS: BP 128/72
--- NOTE | 2016-03-21 16:31 | REP ---
MR BRAIN WITHOUT CONTRAST: HISTORY: Dysarthria. COMPARISON: CT 03/20/2016. A small focus of increased signal intensity on T2-weighted images is present in the right cerebellum. This represents an old lacunar infarction. Areas of increased signal intensity on T2-weighted images are present in the periventricular and subcortical white matter. This represents small vessel ischemic disease. There is no intraparenchymal hemorrhage, acute infarct, mass, or midline shift. The ventricular system and cortical sulci are dilated consistent with mild volume loss. There is no extracerebral collection. Mucosal thickening is present in the mastoid air cells. The sinuses are clear. IMPRESSION: 1. 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 2. Small vessel ischemic disease. 3. Mild volume loss. Signed by Mat Hodgson MD 03/21/2016 04:44 P
--- NOTE | 2016-03-21 18:51 | EDDOCDS ---
Physician Documentation [facility] Name: Ainsley Romero Age: 75 yrs Sex: Female : 1940 Arrival Date: 03/19/2016 Time: 12:13 Bed 17 Private MD: Irena Armenta N. Disposition: 03/19/16 15:06 Hospitalization ordered by Brittany Obregon for Inpatient Admission. Preliminary diagnosis are Nondisplaced transverse fracture of shaft of left femur - nondisplaced distal femur fracture, Fall (on) (from) unspecified stairs and steps, Weakness, Chest pain, unspecified. - Bed requested for PCU. - Status is Inpatient Admission. kr3 - Condition is Stable. - Problem is new. - Symptoms are unchanged. Historical: - Allergies: IODINEIODINE CONTAINING (Anaphylaxis); IV Dye (Anaphylaxis); - Home Meds: 1. allopurinol 100 mg Oral tab 1 tab once daily 2. amitriptyline 10 mg Oral tab 3 tabs nightly 3. amlodipine 10 mg Oral tab once daily 4. atenolol 100 mg Oral tab 1 tab nightly 5. bupropion HCl 300 mg Oral Tb24 1 tab once daily as needed 6. calcitriol 0.25 mcg oral cap 1 cap once daily 7. cephalexin 250 mg Oral tab every 8 hours 8. multivitamin Oral cap daily 9. Nasacort 55 mcg Nasal spra 2 spray daily 10. simvastatin 40 mg Oral tab 1 tab nightly 11. levothyroxine 150 mcg alternate with 125 mcg daily Oral tab 1 tab once daily 12. fexofenadine 180 mg Oral tab 1 tab once daily 13. Diovan 80 mg Oral tab 1 tab once daily 14. esomeprazole magnesium 40 mg Oral cpDR 1 cap 2 times per day 15. tolterodine 2 mg oral tab 1 tab 2 times per day 16. Percocet Oral ran out quickly reports - PMHx: Environmental allergies; GERD; Gout; Hypercholesterolemia; Hypertension; Hypothyroidism; Kidney stones; Obesity; Polycystic Kidney Disease; - PSHx: kidney stone surgery; Gastric Bypass; gastric bypass reconnect; Hysterectomy; - Social history: Smoking status: Patient states was never smoker of tobacco. No barriers to communication noted, The patient speaks fluent [place], Speaks appropriately for age. - Family history: Not pertinent. - : The pt / caregiver states he / she is not on anticoagulants. Home medication list is obtained from the patient, [employer] import data. - Exposure Risk Screening:: None identified. Vital Signs: 03/19 12:35 BP 176 / 84; Pulse 74; Resp 18; Temp 97.6(TE); Pulse Ox 97% on R/A; Weight 117.9 kg / dem1 259.93 lbs; Height 5 ft. 7 in. (170.18 cm); Pain 6/10; 15:36 BP 146 / 97; Pulse 68; Resp 16; Pulse Ox 93% on R/A; Pain 7/10; kr3 17:31 BP 147 / 93; Pulse 70; Resp 16; Temp 98.8(O); Pulse Ox 96% on R/A; Pain 4/10; kr3 12:35 Body Mass Index 40.71 (117.90 kg, 170.18 cm) dem1 MDM: 13:17 IV Saline Lock ordered. ml 13:21 US Lower Extremity R/O DVT Ordered. EDMS 13:21 Chest, 1 View Ordered. EDMS 13:21 Pelvis Ordered. EDMS 13:21 Hip, (AP/Lat) Ordered. EDMS 13:21 Femur Ordered. EDMS 13:21 Tibia/Fibula Ordered. EDMS 13:21 Knee, Complete Ordered. EDMS 13:21 CBC with Diff Ordered. EDMS 13:21 MED Profile Ordered. EDMS 13:21 CIP Ordered. EDMS 13:21 Troponin Ordered. EDMS 13:21 Liver Profile Ordered. EDMS 14:26 CBC with Diff Reviewed. ml 14:26 MED Profile Reviewed. ml 14:26 Liver Profile Reviewed. ml 14:26 CIP Reviewed. ml 14:26 Troponin Reviewed. ml 14:28 Financial registration complete. 5 14:47 BED REQUEST+ADM ordered. EDMS 14:50 Type & Screen Ordered. EDMS 14:50 PT/INR Ordered. EDMS 14:51 PTT Ordered. EDMS 15:04 Knee Immobilizer ordered. ml 15:09 PT/INR Reviewed. ml 15:09 Chest, 1 View Reviewed. ml 15:09 Pelvis Reviewed. ml 15:09 Hip, (AP/Lat) Reviewed. ml 15:09 Femur Reviewed. ml 15:09 Tibia/Fibula Reviewed. ml 15:09 Knee, Complete Reviewed. ml 15:10 ECG WITH READING ER PHYS+CARDIAG ordered. EDMS 15:30 PCR was scanned into [employer] and attached to record. gb 15:40 Admission / Observation Status ordered. EDMS 15:41 REGULAR DIET ordered. EDMS 15:41 CARDIAC MARKER PANEL Ordered. EDMS 15:41 [place] Payment Agreement was scanned into [employer] and attached to record. jp5 15:44 PHYSICAL THERAPY EVAL & TREAT ordered. EDMS 15:44 Foot, complete Ordered. EDMS 15:45 URINALYSIS Ordered. EDMS 15:45 URINE CULTURE Ordered. EDMS 15:45 BLOOD CULTURES Ordered. EDMS 15:45 BLOOD CULTURES Ordered. EDMS 16:27 morphine 2 mg IVP once ordered. kr3 03/20 06:20 T-Sheet-- Draft Copy was scanned into [employer] and attached to record. lja 10:08 ECG/EKG was scanned into [employer] and attached to record. gb Administered Medications: 03/19 16:27 Drug: morphine 2 mg [morphine 2 mg/mL intravenous cartridge (1 mL)] Route: IVP; Site: [facility] right antecubital; 17:14 Follow up: Response: Pain is decreased kr3 Signatures: Dispatcher [employer] EDFL Eulalio Almaraz MD MD ml Sleeman, Kacey, DENEEN RN Fannie Torres, Chante Kamara RN RN kr3 Keira Cox Jennalee jp5 The chart was reviewed and I authenticate all verbal orders and agree with the evaluation and treatment provided.Attachments: 15:41 [facility] Payment Agreement jp5 03/20 06:20 T-Sheet-- Draft Copy lja 10:08 ECG/EKG Chart Complete MTDD
--- NOTE | 2016-03-21 18:51 | EDDOCDS ---
Physician Documentation [facility] Name: Ainsley Romero Age: 75 yrs Sex: Female : 1940 Arrival Date: 03/19/2016 Time: 12:13 Bed 17 Private MD: Irena Armenta N. Disposition: 03/19/16 15:06 Hospitalization ordered by Brittany Obregon for Inpatient Admission. Preliminary diagnosis are Nondisplaced transverse fracture of shaft of left femur - nondisplaced distal femur fracture, Fall (on) (from) unspecified stairs and steps, Weakness, Chest pain, unspecified. - Bed requested for PCU. - Status is Inpatient Admission. kr3 - Condition is Stable. - Problem is new. - Symptoms are unchanged. Historical: - Allergies: IODINEIODINE CONTAINING (Anaphylaxis); IV Dye (Anaphylaxis); - Home Meds: 1. allopurinol 100 mg Oral tab 1 tab once daily 2. amitriptyline 10 mg Oral tab 3 tabs nightly 3. amlodipine 10 mg Oral tab once daily 4. atenolol 100 mg Oral tab 1 tab nightly 5. bupropion HCl 300 mg Oral Tb24 1 tab once daily as needed 6. calcitriol 0.25 mcg oral cap 1 cap once daily 7. cephalexin 250 mg Oral tab every 8 hours 8. multivitamin Oral cap daily 9. Nasacort 55 mcg Nasal spra 2 spray daily 10. simvastatin 40 mg Oral tab 1 tab nightly 11. levothyroxine 150 mcg alternate with 125 mcg daily Oral tab 1 tab once daily 12. fexofenadine 180 mg Oral tab 1 tab once daily 13. Diovan 80 mg Oral tab 1 tab once daily 14. esomeprazole magnesium 40 mg Oral cpDR 1 cap 2 times per day 15. tolterodine 2 mg oral tab 1 tab 2 times per day 16. Percocet Oral ran out quickly reports - PMHx: Environmental allergies; GERD; Gout; Hypercholesterolemia; Hypertension; Hypothyroidism; Kidney stones; Obesity; Polycystic Kidney Disease; - PSHx: kidney stone surgery; Gastric Bypass; gastric bypass reconnect; Hysterectomy; - Social history: Smoking status: Patient states was never smoker of tobacco. No barriers to communication noted, The patient speaks fluent [place], Speaks appropriately for age. - Family history: Not pertinent. - : The pt / caregiver states he / she is not on anticoagulants. Home medication list is obtained from the patient, [employer] import data. - Exposure Risk Screening:: None identified. Vital Signs: 03/19 12:35 BP 176 / 84; Pulse 74; Resp 18; Temp 97.6(TE); Pulse Ox 97% on R/A; Weight 117.9 kg / dem1 259.93 lbs; Height 5 ft. 7 in. (170.18 cm); Pain 6/10; 15:36 BP 146 / 97; Pulse 68; Resp 16; Pulse Ox 93% on R/A; Pain 7/10; kr3 17:31 BP 147 / 93; Pulse 70; Resp 16; Temp 98.8(O); Pulse Ox 96% on R/A; Pain 4/10; kr3 12:35 Body Mass Index 40.71 (117.90 kg, 170.18 cm) dem1 MDM: 13:17 IV Saline Lock ordered. ml 13:21 US Lower Extremity R/O DVT Ordered. EDMS 13:21 Chest, 1 View Ordered. EDMS 13:21 Pelvis Ordered. EDMS 13:21 Hip, (AP/Lat) Ordered. EDMS 13:21 Femur Ordered. EDMS 13:21 Tibia/Fibula Ordered. EDMS 13:21 Knee, Complete Ordered. EDMS 13:21 CBC with Diff Ordered. EDMS 13:21 MED Profile Ordered. EDMS 13:21 CIP Ordered. EDMS 13:21 Troponin Ordered. EDMS 13:21 Liver Profile Ordered. EDMS 14:26 CBC with Diff Reviewed. ml 14:26 MED Profile Reviewed. ml 14:26 Liver Profile Reviewed. ml 14:26 CIP Reviewed. ml 14:26 Troponin Reviewed. ml 14:28 Financial registration complete. 5 14:47 BED REQUEST+ADM ordered. EDMS 14:50 Type & Screen Ordered. EDMS 14:50 PT/INR Ordered. EDMS 14:51 PTT Ordered. EDMS 15:04 Knee Immobilizer ordered. ml 15:09 PT/INR Reviewed. ml 15:09 Chest, 1 View Reviewed. ml 15:09 Pelvis Reviewed. ml 15:09 Hip, (AP/Lat) Reviewed. ml 15:09 Femur Reviewed. ml 15:09 Tibia/Fibula Reviewed. ml 15:09 Knee, Complete Reviewed. ml 15:10 ECG WITH READING ER PHYS+CARDIAG ordered. EDMS 15:30 PCR was scanned into [employer] and attached to record. gb 15:40 Admission / Observation Status ordered. EDMS 15:41 REGULAR DIET ordered. EDMS 15:41 CARDIAC MARKER PANEL Ordered. EDMS 15:41 [facility] [place] Agreement was scanned into [employer] and attached to record. jp5 15:44 PHYSICAL THERAPY EVAL & TREAT ordered. EDMS 15:44 Foot, complete Ordered. EDMS 15:45 URINALYSIS Ordered. EDMS 15:45 URINE CULTURE Ordered. EDMS 15:45 BLOOD CULTURES Ordered. EDMS 15:45 BLOOD CULTURES Ordered. EDMS 16:27 morphine 2 mg IVP once ordered. kr3 03/20 06:20 T-Sheet-- Draft Copy was scanned into [employer] and attached to record. lja 10:08 ECG/EKG was scanned into [employer] and attached to record. gb Administered Medications: 03/19 16:27 Drug: morphine 2 mg [morphine 2 mg/mL intravenous cartridge (1 mL)] Route: IVP; Site: [facility] right antecubital; 17:14 Follow up: Response: Pain is decreased kr3 Signatures: Dispatcher [employer] EDDC Eulalio Almaraz MD MD ml Sleeman, Kacey, DENEEN RN Fannie Torres, Chante Kamara RN RN kr3 Keira Cox Jennalee jp5 The chart was reviewed and I authenticate all verbal orders and agree with the evaluation and treatment provided.Attachments: 15:41 [facility] Payment Agreement jp5 03/20 06:20 T-Sheet-- Draft Copy lja 10:08 ECG/EKG Chart Complete MTDD
--- NOTE | 2016-03-21 18:51 | EDDOCDS ---
Nurse's Notes [facility] Name: Ainsley Romero Age: 75 yrs Sex: Female : 1940 Arrival Date: 03/19/2016 Time: 12:13 Bed 17 Private MD: Irena Armenta N. Diagnosis: Nondisplaced transverse fracture of shaft of left femur-nondisplaced distal femur fracture;Fall (on) (from) unspecified stairs and steps;Weakness;Chest pain, unspecified Presentation: 03/19 12:25 Presenting complaint: EMS states: nonambulatory since fall 5 days ago. Seen in ED at kr3 time of fall with negative Xrays. Adult Sepsis Screening: The patient does not have new or worsening altered mentation. Patient's respiratory rate is less than 22. Systolic blood pressure is greater than 100. Patient has a qSOFA score of 0- Negative Sepsis Screen. 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 Suicide/Homicide risk assessment- the patient denies having any suicidal and/or homicidal ideations. Transition of care: patient was not received from another setting of care. 12:25 Acuity: CAROLIN Level 3 kr3 12:25 Method Of Arrival: Ambulance kr3 12:30 Presenting complaint: Patient states: pain left knee and reports unable to get up and kr3 walk. Triage Assessment: 12:36 General: Appears distressed, Behavior is cooperative. Pain: Location: left knee Pain kr3 currently is 5 out of 10 on a pain scale. The patient is triaged at the bedside. See Assessment in Nurses Notes section of ED record. Neurological: Level of Consciousness is awake, alert. GI: Abdomen is obese. Musculoskeletal: Reports painful ROM of left knee. Historical: - Allergies: IODINEIODINE CONTAINING (Anaphylaxis); IV Dye (Anaphylaxis); - Home Meds: 1. allopurinol 100 mg Oral tab 1 tab once daily 2. amitriptyline 10 mg Oral tab 3 tabs nightly 3. amlodipine 10 mg Oral tab once daily 4. atenolol 100 mg Oral tab 1 tab nightly 5. bupropion HCl 300 mg Oral Tb24 1 tab once daily as needed 6. calcitriol 0.25 mcg oral cap 1 cap once daily 7. cephalexin 250 mg Oral tab every 8 hours 8. multivitamin Oral cap daily 9. Nasacort 55 mcg Nasal spra 2 spray daily 10. simvastatin 40 mg Oral tab 1 tab nightly 11. levothyroxine 150 mcg alternate with 125 mcg daily Oral tab 1 tab once daily 12. fexofenadine 180 mg Oral tab 1 tab once daily 13. Diovan 80 mg Oral tab 1 tab once daily 14. esomeprazole magnesium 40 mg Oral cpDR 1 cap 2 times per day 15. tolterodine 2 mg oral tab 1 tab 2 times per day 16. Percocet Oral ran out quickly reports - PMHx: Environmental allergies; GERD; Gout; Hypercholesterolemia; Hypertension; Hypothyroidism; Kidney stones; Obesity; Polycystic Kidney Disease; - PSHx: kidney stone surgery; Gastric Bypass; gastric bypass reconnect; Hysterectomy; - Social history: Smoking status: Patient states was never smoker of tobacco. No barriers to communication noted, The patient speaks fluent Urdu, Speaks appropriately for age. - Family history: Not pertinent. - : The pt / caregiver states he / she is not on anticoagulants. Home medication list is obtained from the patient, [employer] import data. - Exposure Risk Screening:: None identified. Screenin:37 Screening information is obtained from the patient. Fall risk: At risk due to prior kr3 history of falls. Assistance ADL's: Requires assistance with bathing, assistance is provided by family members, dressing, assistance is provided by family members, housework, assistance is provided by family members. Abuse/DV Screen: The patient / caregiver reports he/she is: not in a situation that causes fear, pain or injury. Nutritional screening: No deficits noted. Advance Directives: Currently, there is no health care proxy. There is no Power of Medicaid Plan Compliance Director. home support is adequate. Assessment: 12:38 General: Appears moaning in pain with motion of left leg or touching left leg. kr3 13:30 Reassessment: Patient appears in no apparent distress at this time. resting on kr3 stretcher with eyes closed. 14:40 Reassessment: patient away from department, in UL and Xray. kr3 15:22 Reassessment: Patient appears in no apparent distress at this time. moans in pain kr3 whenever touched. If left alone appears comfortable with eyes closed. 15:37 Pain: Location: left leg, abdomen and chest Pain currently is 7 out of 10 on a pain kr3 scale. 16:50 Reassessment: Patient appears in no apparent distress at this time. Patient states kr3 feeling better. assisted to bedpan. 17:32 Reassessment: Patient appears in no apparent distress at this time. Pain: Pain kr3 currently is 4 out of 10 on a pain scale. Neurological: Level of Consciousness is awake, alert. Respiratory: Respiratory effort is even, unlabored. Derm: Skin is pink, warm & dry. Vital Signs: 12:35 BP 176 / 84; Pulse 74; Resp 18; Temp 97.6(TE); Pulse Ox 97% on R/A; Weight 117.9 kg; dem1 Height 5 ft. 7 in. (170.18 cm); Pain 6/10; 15:36 BP 146 / 97; Pulse 68; Resp 16; Pulse Ox 93% on R/A; Pain 7/10; kr3 17:31 BP 147 / 93; Pulse 70; Resp 16; Temp 98.8(O); Pulse Ox 96% on R/A; Pain 4/10; kr3 12:35 Body Mass Index 40.71 (117.90 kg, 170.18 cm) [facility] Vitals: 12:35 Log In Time N/A - ambulance arrival. [facility] ED Course: 12:15 Patient visited by Dmitri Henning PCA. jrd 12:15 Patient moved to Waiting jrd 12:24 Irena Armenta is Private Physician. jrd 12:24 Patient visited by Dmitri Henning PCA. jrd 12:26 Chante Escobar,RN is Primary Nurse. jrd 12:26 Triage Initiated kr3 12:26 Patient moved to 17 jrd 12:35 Patient visited by Dayron Chong. dem1 12:37 The patient / caregiver is instructed regarding the plan of care and ED course. kr3 Accompanied by Family Member, Patient has correct armband on for positive identification. Bed in low position. Call light in reach. Side rails up X2. 13:02 Eulalio Almaraz MD is Attending Physician. ml 13:02 Patient visited by Eulalio Almaraz MD. ml 13:32 Liver Profile Sent. kr3 13:32 Troponin Sent. kr3 13:32 CIP Sent. kr3 13:32 MED Profile Sent. kr3 13:32 CBC with Diff Sent. kr3 13:59 Patient visited by Chante Escobar RN. kr3 14:55 Pelvis Returned. EDMS 14:55 Hip, (AP/Lat) Returned. EDMS 14:55 Knee, Complete Returned. EDMS 14:55 Femur Returned. EDMS 14:55 Chest, 1 View Returned. EDMS 14:55 Tibia/Fibula Returned. EDMS 15:05 SabasBrittany is Hospitalizing Provider. ml 15:06 Inserted saline lock: 20 gauge in right antecubital area. kr3 15:18 EKG done. (by ED staff). Reviewed by Eulalio Almaraz MD. ct3 15:22 Patient visited by Caprice Cordero PCA. ct3 15:28 US Lower Extremity R/O DVT Returned. EDMS 15:29 No procedures done that require assistance. Knee immobilizer applied on left knee. kr3 Patient with positive distal sensation and brisk distal capillary refill after application. 15:30 PCR was scanned into [employer] and attached to record. gb 15:41 [facility] Payment Agreement was scanned into [employer] and attached to record. jp5 15:54 Assisted with bedpan. kr3 16:02 BLOOD CULTURES Sent. kr3 16:36 Pelvis Returned. EDMS 16:36 Hip, (AP/Lat) Returned. EDMS 16:36 Knee, Complete Returned. EDMS 16:36 Femur Returned. EDMS 16:36 Chest, 1 View Returned. EDMS 16:36 Tibia/Fibula Returned. EDMS 03/20 06:20 T-Sheet-- Draft Copy was scanned into [employer] and attached to record. lja 10:08 ECG/EKG was scanned into [employer] and attached to record. gb Administered Medications: 03/19 16:27 Drug: morphine 2 mg [morphine 2 mg/mL intravenous cartridge (1 mL)] Route: IVP; Site: kr3 right antecubital; 17:14 Follow up: Response: Pain is decreased kr3 Order Results: Lab Order: CBC with Diff; SPEC'M 03/19/16 13:31 Test: WHITE BLOOD COUNT; Value: 12.6; Range: 4.0-10.0; Abnormal: Above high normal; Units: K/mm3; Status: F Test: RED BLOOD COUNT; Value: 3.98; Range: 4.00-5.40; Abnormal: Below low normal; Units: M/mm3; Status: F Test: HEMOGLOBIN; Value: 12.3; Range: 12.0-16.0; Units: g/dl; Status: F Test: HEMATOCRIT; Value: 37.5; Range: 36.0-47.0; Units: %; Status: F Test: MEAN CORPUSCULAR VOLUME; Value: 94.2; Range: 80.0-96.0; Units: fl; Status: F Test: MEAN CORPUSCULAR HEMOGLOBIN; Value: 31.0; Range: 27.0-33.0; Units: pg; Status: F Test: MEAN CORPUSCULAR HGB CONC; Value: 32.9; Range: 32.0-36.5; Units: g/dl; Status: F Test: RED CELL DISTRIBUTION WIDTH; Value: 13.4; Range: 11.5-14.5; Units: %; Status: F Test: PLATELET COUNT, AUTOMATED; Value: 275; Range: 150-450; Units: k/mm3; Status: F Test: NEUTROPHILS %; Value: 88.1; Range: 36.0-66.0; Abnormal: Above high normal; Units: %; Status: F Test: LYMPH %; Value: 4.2; Range: 24.0-44.0; Abnormal: Below low normal; Units: %; Status: F Test: MONO %; Value: 3.0; Range: 0.0-5.0; Units: %; Status: F Test: EOS %; Value: 3.2; Range: 0.0-3.0; Abnormal: Above high normal; Units: %; Status: F Test: BASO %; Value: 0.3; Range: 0.0-1.0; Units: %; Status: F Test: LARGE UNSTAINED CELL %; Value: 1.3; Range: 0.0-4.0; Units: %; Status: F Test: NEUTROPHILS #; Value: 11.1; Range: 1.8-7.7; Abnormal: Above high normal; Units: K/mm3; Status: F Test: LYMPH #; Value: 0.5; Range: 1.5-4.5; Abnormal: Below low normal; Units: K/mm3; Status: F Test: MONO #; Value: 0.4; Range: 0.0-0.8; Units: K/mm3; Status: F Test: EOS #; Value: 0.4; Range: 0.0-0.50; Units: K/mm3; Status: F Test: BASO #; Value: 0.0; Range: 0.0-0.2; Units: K/mm3; Status: F Test: LARGE UNSTAINED CELL #; Value: 0.2; Range: 0.0-0.4; Units: K/mm3; Status: F Lab Order: MED Profile; SPEC'M 03/19/16 13:31 Test: GLUCOSE, FASTING; Value: 106; Range: 83-110; Units: MG/DL; Status: F Test: BLOOD UREA NITROGEN; Value: 42; Range: 7-18; Abnormal: Above high normal; Units: MG/DL; Status: F Test: CREATININE FOR GFR; Value: 3.04; Range: 0.55-1.02; Abnormal: Above high normal; Units: MG/DL; Status: F Test: GLOMERULAR FILTRATION RATE; Value: 16.0; Range: >39; Abnormal: Below low normal; Status: F Test: SODIUM LEVEL; Value: 142; Range: 136-145; Units: MEQ/L; Status: F Test: POTASSIUM SERUM; Value: 4.9; Range: 3.5-5.1; Units: MEQ/L; Status: F Test: CHLORIDE LEVEL; Value: 106; Range: 98-107; Units: MEQ/L; Status: F Test: CARBON DIOXIDE LEVEL; Value: 24; Range: 21-32; Units: MEQ/L; Status: F Test: ANION GAP; Value: 12; Range: 8-16; Units: MEQ/L; Status: F Test: CALCIUM LEVEL; Value: 8.9; Range: 8.8-10.2; Units: MG/DL; Status: F Test Note: ; Units are mL/min/1.73 m2 Chronic Kidney Disease Staging per NKF: Stage I & II GFR >=60 Normal to Mildly Decreased Stage III GFR 30-59 Moderately Decreased Stage IV GFR 15-29 Severely Decreased Stage V GFR <15 Very Little GFR Left ESRD GFR <15 on SPECIALTY PERSON Lab Order: CIP; SPEC'03/19/16 13:31 Test: CPK CREATINE PHOSPHOKINASE; Value: 49; Range: 26-192; Units: U/L; Status: F Test: CK-MB VALUE MASS; Value: 1.3; Range: 0.0-3.6; Units: NG/ML; Status: F Test: MB/CK RELATIVE INDEX; Value: 2.65; Range: < OR =4; Status: F Test Note: ; DIAGNOSIS CRITERIA MMB ng/ml Relative Index (RI) NON-AMI < or = 5 N/A FIGUEROA ZONE > 5 < or = 4 AMI > 5 > 4 Lab Order: Troponin; [facility] 03/19/16 13:31 Test: TROPONIN I; Value: < 0.02; Range: < 0.10; Units: NG/ML; Status: F Test Note: ; Troponin I Reference Interval for [place] LOCI: 99th Percentile= 0.00-0.045 ng/ml Risk Stratification: <= 0.10 ng/ml Decreased Risk for Adverse Clinical Events. 0.10-1.50 ng/ml Increased Risk for Adverse Clinical Events. Evaluation of additional criterion and/or repeat testing in 2-6 hours is suggested to rule out myocardial damage. >= 1.50 ng/ml Indicative of Myocardial Injury. Lab Order: Liver Profile; [facility] 03/19/16 13:31 Test: AST/SGOT; Value: 16; Range: 15-37; Units: U/L; Status: F Test: ALT/SGPT; Value: 16; Range: 12-78; Units: U/L; Status: F Test: ALKALINE PHOSPHATASE; Value: 99; Range: 45-117; Units: U/L; Status: F Test: BILIRUBIN,TOTAL; Value: 0.4; Range: 0.2-1.0; Units: MG/DL; Status: F Test: BILIRUBIN,DIRECT; Value: 0.1; Range: 0.0-0.2; Units: MG/DL; Status: F Test: TOTAL PROTEIN; Value: 6.1; Range: 6.4-8.2; Abnormal: Below low normal; Units: GM/DL; Status: F Test: ALBUMIN; Value: 2.8; Range: 3.2-5.2; Abnormal: Below low normal; Units: GM/DL; Status: F Test: ALBUMIN/GLOBULIN RATIO; Value: 0.85; Range: 1.00-1.93; Abnormal: Below low normal; Status: F Lab Order: PT/INR; [facility] 03/19/16 13:30 Test: PROTHROMBIN TIME; Value: 13.6; Range: 12.3-14.5; Units: SECONDS; Status: F Test: INR; Value: 1.03; Status: F Test Note: ; THERAPUTIC HUMAN INR VALUES INDICATIONS NORMAL RANGES PROPHYLAXIS/TREATMENT OF: VENOUS THROMBOSIS 2.0-3.0 PULMONARY EMBOLISM 2.0-3.0 PREVENTION OF SYSTEMIC EMBOLISM FROM: TISSUE HEART VALVES 2.0-3.0 ACUTE MYOCARDIAL INFARCTION 2.0-3.0 VALVULAR HEART DISEASE 2.0-3.0 ATRIAL FIBRILLATION 2.0-3.0 MECHANICAL VALVES(HIGH RISK) 2.5-3.5 RECURRENT MYOCARDIAL INFARCTION 2.5-3.5 Lab Order: PTT; [facility] 03/19/16 13:30 Test: PARTIAL THROMBOPLASTIN TIME; Value: 31.5; Range: 26.6-37.1; Units: SECONDS; Status: F Lab Order: Type & Screen; [facility] 03/19/16 15:44 Test: BLOOD TYPE; Value: A POS; Status: F Test: AB SCREEN (INDIRECT PAPITO)GEL; Value: NEGATIVE; Status: F Lab Order: URINALYSIS; [facility] 03/19/16 16:55 Test: APPEARANCE, URINE; Value: TURBID; Range: CLEAR; Abnormal: Above high normal; Status: F Test: COLOR, URINE; Value: YELLOW; Range: YELLOW; Status: F Test: PH,URINE; Value: 6.0; Range: 5.0-9.0; Units: UNITS; Status: F Test: SPECIFIC GRAVITY URINE AUTO; Value: 1.009; Range: 1.002-1.035; Status: F Test: PROTEIN, URINE AUTO; Value: 2+; Range: NEGATIVE; Abnormal: Above high normal; Units: mg/dL; Status: F Test: GLUCOSE, URINE (UA) AUTO; Value: NEGATIVE; Range: NEGATIVE; Units: mg/dL; Status: F Test: KETONE, URINE AUTO; Value: NEGATIVE; Range: NEGATIVE; Units: mg/dL; Status: F Test: UROBILINOGEN, URINE AUTO; Value: 0.2; Range: 0.0-2.0; Units: mg/dL; Status: F Test: BILIRUBIN, URINE AUTO; Value: NEGATIVE; Range: NEGATIVE; Status: F Test: NITRITE, URINE AUTO; Value: POSITIVE; Range: NEGATIVE; Status: F Test: LEUKOCYTE ESTERASE, URINE AUTO; Value: 3+; Range: NEGATIVE; Abnormal: Above high normal; Status: F Test: BLOOD, URINE BLOOD; Value: 1+; Range: NEGATIVE; Abnormal: Above high normal; Status: F Test: WBC, URINE AUTO; Value: TNTC; Range: 0-3; Abnormal: Above high normal; Units: /HPF; Status: F Test: RBC, URINE AUTO; Value: 66; Range: 0-3; Abnormal: Above high normal; Units: /HPF; Status: F Test: BACTERIA, URINE AUTO; Value: 3+; Range: NEGATIVE; Abnormal: Above high normal; Status: F Test: SQUAMOUS EPITHELIAL CELL UR AU; Value: 0; Range: 0-6; Units: /HPF; Status: F Test: HYALINE CAST, URINE AUTO; Value: 0; Range: 0-1; Units: /LPF; Status: F Radiology Order: Chest, 1 View Test: Chest, 1 View REASON FOR EXAMINATION: fall; CHEST:; ; AP supine film of the chest is performed.; ; COMPARISON: 06/07/2015; ; There is no acute infiltrate. There is mild bibasilar fibroatelectatic change.; The heart is not significantly enlarged. There is mild calcification and; tortuosity of the thoracic aorta.; ; IMPRESSION:; ; No acute infiltrate. Mild bibasilar fibroatelectatic change.; ; ; Signed by; Juliano Figueroa MD 03/19/2016 04:09 P; Radiology Order: Pelvis Test: Pelvis REASON FOR EXAMINATION: fall; PELVIS, SINGLE VIEW:; ; Single AP view of the pelvis is performed.; ; There is no evidence of acute fracture or dislocation. Metallic clips are seen in; the pelvis. There are mild degenerative changes at each hip joint.; ; IMPRESSION:; ; No acute fracture or dislocation.; ; ; Signed by; Juliano Figueroa MD 03/19/2016 04:09 P; Radiology Order: Hip, (AP/Lat) Test: Hip, (AP/Lat) REASON FOR EXAMINATION: fall; LEFT HIP:; ; Two views of the left hip are performed and demonstrate no fracture, dislocation; or intrinsic bone disease. There are mild degenerative changes at the hip joint.; ; ; IMPRESSION:; ; No fracture or dislocation.; ; ; Signed by; Juliano Figueroa MD 03/19/2016 04:09 P; Radiology Order: Femur Test: Femur REASON FOR EXAMINATION: pain; LEFT FEMUR:; ; AP and lateral views of the left femur are performed.; ; There is nondisplaced fracture of the distal femur with a joint effusion a the; knee. No other fracture or dislocation is seen of the visualized osseous; structures.; ; IMPRESSION:; ; Nondisplaced fracture, distal femur.; ; ; Signed by; Juliano Figueroa MD 03/19/2016 04:09 P; Radiology Order: Tibia/Fibula Test: Tibia/Fibula REASON FOR EXAMINATION: pain; LEFT LOWER LEG:; ; AP and lateral views of the left lower leg are performed. Nondisplaced fracture; of the distal femur is noted. The tibia and fibula demonstrate no evidence of; fracture or dislocation. There is inferior calcaneal spurring.; ; IMPRESSION:; ; No acute fracture or dislocation of tibia or fibula.; ; ; Signed by; Juliano Figueroa MD 03/19/2016 04:10 P; Radiology Order: US Lower Extremity R/O DVT Test: US Lower Extremity R/O DVT REASON FOR EXAMINATION: pain; Left lower extremity Duplex Doppler venous ultrasound:; ; Real time compression and duplex Doppler interrogation of the left lower; extremity deep venous system is performed. The left common femoral, superficial; femoral and popliteal veins are fully compressible with transducer pressure and; demonstrate normal spontaneous and phasic flow, without evidence of deep venous; thrombosis.; ; Impression:; ; No evidence of deep venous thrombosis of the left lower extremity femoral; popliteal venous system.; ; ; Signed by; Juliano Figueroa MD 03/19/2016 03:11 P; Radiology Order: Knee, Complete Test: Knee, Complete REASON FOR EXAMINATION: pain; LEFT KNEE:; ; Four views of the left knee are performed.; ; There is a nondisplaced fracture of the distal femur. There is no other evidence; of acute fracture or dislocation. There is mild diffuse spurring. There is a; joint effusion.; ; IMPRESSION:; ; Non displaced fracture, distal femur.; ; ; Signed by; Juliano Figueroa MD 03/19/2016 04:09 P; Outcome: 15:06 Decision to Hospitalize by Provider. 15:29 Ultrasound Study completed. [facility] 16:30 Admission hand-off: Report Faxed Fax receipt verified by Carla on PCU, room is dirty, [facility] patient informed. 17:31 Discharge Assessment: patient administered narcotics - yes. Patient was admitted to the [address] or transferred to another facility. The following High Risk Discharge criteria are identified: None. Admitted to PCU accompanied by nurse, accompanied by tech, family with patient, via stretcher, on monitor, with chart. Condition: stable. Property :Personal belongings accompany Pt. 17:50 Patient left the ED. [facility] Signatures: Dispatcher [employer] EDMS Eulalio Almaraz MD MD ml Barnhardt, Gloria, Reg Reg Chante Fine,DENEEN RN kr3 Caprice Cordero, CANDY PACKER CANDY PACKER ct3 Dayron Chong dem1 Dmitri Henning, CANDY PACKER CANDY PACKER jrd Arel, Lynn Napoles 5 Corrections: (The following items were deleted from the chart) 12:36 12:35 BP 176 / 84; Pulse 74bpm; Resp 18bpm; Pulse Ox 97% RA; Temp 97.6F Temporal; Pain dem1 09/08; dem1 Chart Complete MTDD
[2016-03-21] MEDS: AMITRIPTYLINE 10 MG TAB PO SCH (21:15)
[2016-03-21] MEDS: ATORVASTATIN 20 MG TAB PO SCH (21:16)
[2016-03-21] MEDS: MULTIVITAMINS/MINERALS THERAP 1 TAB PO SCH (21:17)
[2016-03-21] MEDS: ATENOLOL 50 MG TAB PO SCH (21:18)
[2016-03-21 22:00] VITALS: BP 158/64
--- NOTE | 2016-03-21 23:35 | CR ---
DATE OF CONSULTATION: 03/20/2016 NEPHROLOGY CONSULTATION FOR: Dmitri Brady MD REASON FOR CONSULT: Acute renal failure superimposed on chronic kidney disease. HISTORY OF PRESENT ILLNESS: Ms. Romero is a 75-year-old female who was admitted to [facility] due to fall at home. She was unable to ambulate due to left knee pain and x-ray showed fracture of distal left femur. She is also noticed to have worsening kidney function, and a nephrology consultation was requested this morning. PAST MEDICAL AND SURGICAL HISTORY: Significant for: 1. History of hypertension. 2. History of polycystic kidney disease. 3. History of kidney stones. 4. Hypothyroidism. 5. Dyslipidemia. 6. Gout. 7. History of gastroesophageal reflux disease. Past surgical history is significant for lithotripsy for kidney stones, gastric bypass and gastric bypass reversal and history of hysterectomy. MEDICATIONS: Her home medications include allopurinol 100 mg daily, amitriptyline 30 mg daily, Norvasc 5 mg daily, atenolol 100 mg at bedtime, bupropion 300 mg daily, calcitriol 0.25 mcg daily, Nexium 40 mg twice a day, [place] 180 mg daily, Synthroid 150 mcg and 125 mcg on alternate days, meloxicam 7.5 mg daily, multivitamin one tablet daily, Zocor 40 mg daily, Detrol LA 2 mg daily, Valsartan 80 mg daily and Nasacort nasal spray daily. ALLERGIES: The patient has allergy to IODINE and IV CONTRAST. PERSONAL AND SOCIAL HISTORY: The patient denies any alcohol or drug use. FAMILY HISTORY: Polycystic kidney and hypertension. REVIEW OF SYSTEMS: The patient has difficulty talking due to severe dry mouth. She denies any fever or chills. She denies any loss of consciousness. She fell at home and fractured her distal left femur. She is not considered suitable candidate for surgery. Ears, nose and throat are unremarkable. Cardiovascular system is negative for dyspnea or chest pain. Respiratory system is negative for cough or hemoptysis. GI system is negative for nausea, vomiting or diarrhea. system is negative for dysuria or hematuria. She does have a prior history of kidney stones. Musculoskeletal system is as per history of present illness. She is unable to get up and ambulate. Endocrine system is significant for hypothyroidism and secondary hyperparathyroidism. Skin is negative for rash or ulcers. Neurological system is negative for known seizures or stroke. Hematological system is negative for chronic anticoagulation. Other systems are reviewed and are unremarkable. PHYSICAL EXAMINATION: This a morbidly obese female lying in the bed with mouth breathing. She has difficulty talking due to dry mouth. Temperature is 97.9 degrees Fahrenheit, heart rate 72 per minute and respiratory rate 20 per minute. Blood pressure 134/60 mmHg and oxygen saturation 97% on room air. Head is atraumatic. Pupils are equal and reactive to light and sclerae is anicteric. Ears, nose and throat are unremarkable. Oral mucosa is dry but without any thrush or ulcers. Neck is supple and without any jugular venous distention (JVD) or thyroid enlargement. Trachea is midline. Heart sounds are regular and distant. Lungs with moderate bilateral air entry. No audible wheezing or rales. Abdomen: Obese and nontender. There is no palpable hepatomegaly or splenomegaly. I could not feel polycystic kidneys. Bowel sounds are normal. Extremities have no cyanosis or clubbing. She is wearing a brace on her left leg. Neurologically she is awake and without a focal deficit. Skin has no rash or ulcers. LABORATORY DATA: On admission WBC count 12.6, hemoglobin 12.3 and hematocrit 37.5. Platelets 275. Today WBC count is 10.7, hemoglobin 10.8 and hematocrit 33.4. Platelets 251. Sodium 142 and potassium 4.9 on admission. BUN was 42 and creatinine 3.04. Today her BUN is 47 and creatinine 3.08. Electrolytes are unchanged. A TSH level is 12.6. Urinalysis showed too numerous to count WBCs and 66 RBCs. 3+ bacteria. INR is 1.03. PROBLEMS: 1. Acute renal failure superimposed on chronic kidney disease. The patient is known to have baseline chronic kidney disease with prior serum creatinine of about 2.3 mg/dl on 03/09/2016. She has known polycystic kidneys. Worsening kidney function is most likely related to nonsteroidal anti-inflammatory drug (NSAID) use and dehydration. I agree with stopping off angiotensin receptor howie. The patient is being hydrated with IV fluid and half-normal saline at 80 mL an hour. I will certainly not give her any diuretic at this point. Renal function will be monitored on a daily basis. Electrolytes are within normal range, and there is no evidence of metabolic acidosis at this point. 2. Anemia. She does have mild anemia, and at this point, we will monitor without any intervention. We will check her iron studies. 3. Hypertension. Her blood pressure is reasonable. I have reviewed the medications. Her angiotensin receptor howie has been stopped due to worsening kidney function which is appropriate. We will monitor her blood pressure and adjust her antihypertensives as needed and as indicated. I am starting her on hydralazine 20 mg three times a day in order to maintain her blood pressure in good range. She will continue with atenolol and amlodipine. I thank you for involving me in the care of Ms. Romero. I will follow her along with you.
[2016-03-22] MEDS: NS 0.45% 1,000 ML IV SCH ×3 (00:45→20:09)
[2016-03-22] MEDS: ACETAMINOPHEN TAB 650MG DOSE (2X325MG) PO PRN ×3 (03:03→18:09)
[2016-03-22] MEDS: LEVOTHYROXINE 0.15 MG TAB (150 MCG) PO SCH (05:39)
[2016-03-22] MEDS: PERCOCET 5MG/325MG TAB PO PRN (05:40)
[2016-03-22] MEDS: HEPARIN SOD (PORCINE) 5000 UNITS/ML VIAL SC SCH ×3 (05:41→20:31)
[2016-03-22 06:00] VITALS: BP 155/66
[2016-03-22 07:41] LABS: MEAN CORPUSCULAR HEMOGLOBIN 32.1 pg (27.0-33.0); MEAN CORPUSCULAR HGB CONC 33.8 g/dl (32.0-36.5); MEAN CORPUSCULAR VOLUME 95.1 fl (80.0-96.0); RED CELL DISTRIBUTION WIDTH 13.3 % (11.5-14.5); WHITE BLOOD COUNT 11.3 K/mm3 (4.0-10.0)
[2016-03-22 07:50] LABS: CALCIUM LEVEL 8.5 MG/DL (8.8-10.2); CREATININE FOR GFR 3.43 MG/DL (0.55-1.02); MAGNESIUM LEVEL 2.8 MG/DL (1.8-2.4); POTASSIUM SERUM 4.3 MEQ/L (3.5-5.1)
--- NOTE | 2016-03-22 08:20 | IPNPDOC ---
Assessment/Plan Date Seen The patient was seen on 03/22/16. Problems Problems: (1) NAY (acute kidney injury) Status: Acute Problem Text: Creatinine = 3. This is higher than her baseline. She was given Meloxicam script in the ER the otehr day whcih may have contributed to her worsening renal function. I will hold ARB, start IVF, consult renal who follows her as outpatient and saw her last admission as well. 03/21 - Renal function continues to worsen Nephrology consulted - await further input Getting IVF at 80cc/hour, but also on Hydralazine 03/22 - Creatinine continues to climb despite IVF. Nephrology on consult CT abd pelvis yesterday shows polycystic kidneys but no hydronephrosis or obstructing stones (2) UTI (urinary tract infection) Status: Acute Problem Text: present on admission - IV Rocephin ordered 03/21 - U/C grew>1000,000 Pseudomonas. Switch to Fortaz at renal dose B/C negative IV access is an issue. I will switch to po Cipro (Renal Dose) to preserve her IV access for her IVF (3) Fracture, femur, distal Status: Acute Response to Treatment: Stable Problem Text: I am told that Ortho saw the patient and recommended bedrest - Non-surgical fracture. no adequate brace available 03/21 - Ortho note hand written in chart - reviewed today. Bedrest as above Continue Percocet for pain D/C morphine. (4) Hypertension Status: Chronic Response to Treatment: Worse Problem Text: Hold ARB due to NAY Increase Norvasc 03/21 - BP remains high - Norvasc dose increased yesterday, but only got 5 mg dose. She will get 7.5 mg today and is on Hydralazine as well 03/22 - BP better today - On Norvasc 7.5/ Hydralazine and Tenormin 03/22: bp still high, increase norvasc to 10mg. reduce atenolol to 50mg ( relatively vanda and beta blockade with bradycardia may reduce renal blood flow) (5) Constipation Status: Chronic Response to Treatment: Improving Problem Text: Bowel care added 03/21 - still no BM. MOM given by ortho but patient in ARF and now with hypermagnesemia. D/C MOM. Increase Miralax 03/22 - CT abd pelvisshowed Left colonic distension and retained stool. Now having loose BMs. Back off on bowel care. Check GI panel. (6) Anemia Status: Chronic Response to Treatment: Stable Problem Text: Recent GI bleed (see previous admission) - No further active bleeding. Hgb stable (7) Dysarthria Status: Acute Response to Treatment: Stable Problem Text: speech is thick and slow. PAtient has some trouble with word finding, but had that at last admission as well. Thick speech seems to be related to dry mucouis membranes. 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 Check Ammonia level (8) Hypothyroidism Status: Chronic Response to Treatment: Stable Problem Text: on Levothyroxine TSH high, but likely related to acute illness. Repeat once stable (9) Hyperlipidemia Status: Chronic (10) Costochondritis Status: Acute Response to Treatment: Improving Problem Text: Add K-pad Encourage IS. CXR negative on admission. Lungs clear on exam. Sats normal (11) Liver cyst Status: Chronic Problem Text: 2.7 cm cyst on liver - will need interval f/u as outpatient Plan / VTE VTE Prophylaxis Ordered?: Yes (SQ heparin) Subjective Review of Systems CC/HPI The patient is a 75-year-old female admitted with a reason for visit of Fx Femur Distal. Events since last encounter still c/o dry mouth. Constitutional: Denies: Chills, Fever Pulmonary: Denies: Cough, Dyspnea Cardiovascular: Denies: Chest Pain, Palpitations Gastrointestinal: Reports: Diarrhea (Having some loose BMs after her bowel care this am), Denies: Abdominal Pain, Nausea, Vomiting Objective Physical Examination General Exam: Positive: Alert (Speech is thick due to dry tongue - seems mildly dysarthric), No Acute Distress Chest Exam: Positive: Clear to auscultation, Normal air movement Heart Exam: Positive: Rate Normal Abdomen Exam: Positive: Normal bowel sounds, Soft, Negative: Tenderness Extremity Exam: Negative: Edema Vital Signs/I&O Vital Signs Date Time Temp Pulse Resp B/P Pulse Ox O2 Delivery O2 Flow Rate FiO2 03/22/16 06:10 18 Room Air 03/22/16 06:00 98.9 66 155/66 97 I&O- Last 24 Hours up to 6 AM 03/22/16 06:00 Intake Total 1589 ml Output Total 50 ml Balance 1539 ml Laboratory Data Labs 24H Laboratory Tests 2 03/22/16 07:08: Anion Gap 13, Blood Urea Nitrogen 55H, Creatinine 3.43H, Sodium Level 138, Potassium Level 4.3, Chloride Level 105, Carbon Dioxide Level 20L, Calcium Level 8.5L, Glomerular Filtration Rate 14.0L, Magnesium Level 2.8H CBC/BMP Laboratory Tests 03/22/16 07:08 Calcium Level 8.5 L, Red Blood Count 3.39 L, Mean Corpuscular Volume 95.1, Mean Corpuscular Hemoglobin 32.1, Mean Corpuscular Hemoglobin Concent 33.8, Red Cell Distribution Width 13.3 Microbiology Microbiology 03/19/16 Blood Culture - Preliminary, Resulted No Growth after 48 hours. All Specime... 03/19/16 Blood Culture - Preliminary, Resulted No Growth after 48 hours. All Specime... 03/19/16 Urine Culture - Final, Complete Pseudomonas Aeruginosa ROSALIA WESTBROOK PA-C Mar 22, 2016 08:20 Ahsan Patino MD Mar 22, 2016 16:22
[2016-03-22] MEDS: MIRALAX *UNIT DOSE* 17GM PACKET PO SCH (09:00)
[2016-03-22] MEDS: amLODIPine 5 MG TAB PO SCH (09:57)
[2016-03-22] MEDS: NYSTATIN 100,000 UNITS/GM TOPICAL PWD 15 GM TOP SCH ×2 (09:57→20:32)
[2016-03-22] MEDS: PANTOPRAZOLE 40MG TAB (PROTONIX) PO SCH (09:58)
[2016-03-22] MEDS: buPROPion **XL** TABLET 150MG (WELLBUTRIN XL) PO SCH (09:58)
[2016-03-22] MEDS: **hydrALAZINE** 10 MG TAB PO SCH ×3 (09:59→20:30)
[2016-03-22] MEDS: CIPROFLOXACIN 250 MG TAB PO SCH (09:59)
[2016-03-22] MEDS: CALCITRIOL 0.25 MCG CAP (S0169) PO SCH (09:59)
[2016-03-22] MEDS: ALLOPURINOL 100 MG TAB PO SCH (09:59)
--- NOTE | 2016-03-22 14:57 | IPN ---
DATE: 03/21/2016 Ms. Romero was seen last evening due to acute renal failure. She is admitted due to fall causing left knee fracture of her distal femur. She has a complaint of abdominal pain. She is being hydrated with IV fluid and her angiotensin receptor howie was stopped on admission. She denies any nausea or vomiting. She has no dyspnea or chest pain. PHYSICAL EXAMINATION: Temperature 97.9 degrees Fahrenheit, heart rate 65 per minute and respiratory rate 16 per minute. Blood pressure is recorded as 180/83 mmHg while earlier last evening it was 131/60 mmHg. Head is atraumatic. Ears, nose and throat are unremarkable. Neck veins are not abnormally distended. Her neck is supple and without any thyroid enlargement. Heart sounds are regular and distant. Lungs: Have moderate bilateral air entry. Abdomen is soft. Mild tenderness is present in the lower abdomen and in the right side. Bowel sounds are normal. Extremities have no cyanosis or clubbing. Skin has no rash or ulcers. Neurologically she is awake, alert and oriented x3. She seems improved mentation since yesterday. Today's labs show WBC count 8.2, hemoglobin 10.7 and hematocrit 32.3. Sodium 139 and potassium 4.6. CO2 24, BUN 54 and creatinine 3.35. Magnesium level is 2.5 and calcium 8.8. PROBLEMS: 1. Acute renal failure superimposed on chronic kidney disease. Kidney function is slightly worse despite stopping her angiotensin receptor howie and giving intravenous (IV) fluid. She does not seem too dehydrated at present. She is not on any other nephrotoxic medications. I will get a CT scan of abdomen and pelvis due to her abdominal pain and also to rule out any possibility of ureteral stone as she does have history of kidney stones. Her kidney function will be checked again tomorrow morning. At present she is not uremic and her electrolytes are within normal range. Her volume status is still compensated or may be slightly dehydrated. We will continue with IV fluid for next 24 hours. 2. Abdominal pain. The patient has abdominal cramps. Possibly she has enteritis though no diarrhea has been reported. We will see what the CT scan of abdomen and pelvis shows. She does not have leukocytosis today. 3. Dry mouth. Her dry mouth has improved and her Ditropan was stopped yesterday. She is being hydrated with IV fluid.
[2016-03-22] MEDS ORDERED: SODIUM CHLORIDE 0.9% INJ 10 ML SYR IV PRN (17:45)
[2016-03-22] MEDS: SODIUM CHLORIDE 0.9% INJ 10 ML SYR IV SCH (17:49)
[2016-03-22 20:00] VITALS: BP 144/84
[2016-03-22] MEDS: ATORVASTATIN 20 MG TAB PO SCH (20:29)
[2016-03-22] MEDS: ATENOLOL 50 MG TAB PO SCH (20:30)
--- NOTE | 2016-03-22 21:09 | CR ---
DATE OF CONSULTATION: 03/22/2016 REQUESTING PROVIDER: Dr. Ahsan Patino REASON FOR CONSULTATION: Dysarthria. HISTORY OF PRESENT ILLNESS: Ainsley Romero is a 75-year-old female with past medical history significant for hypertension, hyperlipidemia, hypothyroidism, who recently had a fall with history of multiple falls over the past year. She was recently diagnosed with a distal femur fracture the left lower extremity. She has been seen by orthopedics and has been placed in a cast. She is on Elavil 30 mg nightly for the treatment of depression and anxiety. She has been having ongoing intermittent dysarthria, described as thickness in her speech. The patient has not had a stroke, and MRI of the brain completed on 03/21/2016 was negative for any acute stroke. Small-vessel ischemic disease, as well as mild volume loss were noted. There is history of MRI imaging of old right cerebellar lacunar infarct. The patient is currently being treated for urinary tract infection and is ceftazidime and is also having acute and chronic kidney injury with elevation in BUN and creatinine. Her TSH is significantly elevated at 12.6. The patient states that if she sits up in an upper position she can talk more clearly, when she wets her mouth with water or other liquids she can also articulate more clearly. The patient's dysarthria is likely more mechanical and related to these contributing factors. I do not see any atrophy of the tongue or any fasciculations. Tongue is midline and can move towards the left and right appropriately. There is no other cranial nerve deficit. The patient denies any headache at the present time. ALLERGIES: IV CONTRAST, IODINE. PRESENT MEDICATIONS: - ceftazidime 500 mg - allopurinol 100 mg by mouth daily - amitriptyline 30 mg by mouth at night - Norvasc 5 mg by mouth daily - atenolol 100 mg by mouth at night - bupropion 300 mg by mouth daily - calcitriol 0.25 mg by mouth daily - Nexium 40 mg by mouth twice a day - [place] 180 mg daily - Synthroid 150 mcg every other day and 125 mcg in between those days - meloxicam 7.5 mg by mouth daily - multivitamin by mouth daily - Zocor 40 mg by mouth at night - tolterodine tartrate 2 mg by mouth daily - valsartan 80 mg by mouth daily PAST SURGICAL HISTORY: 1. Kidney surgery. 2. Lithotripsy. 3. Gastric bypass and gastric bypass reversal. 4. Hysterectomy. PAST MEDICAL HISTORY: 1. Gastroesophageal reflux disease (GERD). 2. Gout. 3. Dyslipidemia. 4. Hypertension. 5. Hypothyroidism. 6. Nephrolithiasis. 7. Obesity. 8. Polycystic kidney disease. 9. Chronic kidney disease stage IV. FAMILY HISTORY: Noncontributory. SOCIAL HISTORY: The patient denies use of any tobacco or illicit drugs. She drinks a cup of wine every night. REVIEW OF SYSTEMS: 14-point review of systems obtained is negative except as per history of present illness. PHYSICAL EXAMINATION: Blood pressure 128/72, pulse rate is 65, respiratory rate is 16, oxygen saturation is 96% on room air. Temperature is 97.9 degrees Fahrenheit. The patient is awake, alert, oriented to person, place and time. Speech, language, and comprehension are intact. Repetition is intact. Very minimal dysarthria is noted, which improves with the seating the patient upright and allowing her to have sips of water. Pupils are 3 mm round, reactive to light. Extraocular movements are intact in all directions. Sensation V1, V2-V3 is intact to light touch. No facial asymmetry on activation. Palate elevates symmetrically. There is no atrophy of the tongue. No fasciculations noted. No weakness of sternocleidomastoid bilaterally. Hearing subjectively equal to finger rub. No pronator drift. Strength is 5/5, including bilateral handgrip, deltoids, biceps, triceps, wrist extensors. The patient has subtle weakness of the iliopsoas, quadriceps on the right is 5/5, left quadriceps not tested due to recent fracture. Tibialis anterior 5/5 bilaterally. Deep tendon reflexes are decreased in the lower extremities. Left patella not tested, 2's in the upper extremities. Sensory is intact to light touch, temperature in the upper and lower extremities. Babinski signs are absent. Gait deferred. ASSESSMENT: 1. Dysarthria, likely related to multifactorial issues, including dry mouth, possible side effect of Elavil and positioning of the body. The patient speaks a much more clear when seated upright rather than lying down. PLAN: Recommend discontinuation of Elavil. Continue to hydrate well. Continue management of underlying urinary tract infection (UTI) and acute kidney injury. The patient's subjective complaint of word-finding difficulties, cognitive impairment maybe in combination of the underlying metabolic disorder and urinary tract infection, along with new medication, including ceftazidime. The patient can followup as an outpatient in the neurology clinic. Thank you for the consultation.
[2016-03-22 23:40] VITALS: BP 162/80
[2016-03-23] MEDS: LORazepam 0.5 MG TAB PO PRN (00:51)
[2016-03-23] MEDS: CIPROFLOXACIN 250 MG TAB PO SCH ×2 (03:00→21:19)
[2016-03-23] MEDS: NS 0.45% 1,000 ML IV SCH (04:14)
[2016-03-23] MEDS: LEVOTHYROXINE 0.125 MG TAB (125 MCG) PO SCH (05:41)
[2016-03-23] MEDS: HEPARIN SOD (PORCINE) 5000 UNITS/ML VIAL SC SCH ×3 (05:42→21:21)
[2016-03-23 06:00] VITALS: BP_SYST 143; BP_SYST 148; BP_DIAS 102; BP_DIAS 79
[2016-03-23] MEDS: SODIUM CHLORIDE 0.9% INJ 10 ML SYR IV SCH ×3 (06:00→18:11)
[2016-03-23 06:33] LABS: MEAN CORPUSCULAR HEMOGLOBIN 31.3 pg (27.0-33.0); MEAN CORPUSCULAR HGB CONC 33.1 g/dl (32.0-36.5); MEAN CORPUSCULAR VOLUME 94.4 fl (80.0-96.0); RED CELL DISTRIBUTION WIDTH 13.3 % (11.5-14.5); WHITE BLOOD COUNT 9.2 K/mm3 (4.0-10.0)
[2016-03-23 07:00] LABS: ALBUMIN 2.4 GM/DL (3.2-5.2); ALBUMIN/GLOBULIN RATIO 0.92 (1.00-1.93); BILIRUBIN,TOTAL 0.4 MG/DL (0.2-1.0); CALCIUM LEVEL 8.2 MG/DL (8.8-10.2); CREATININE FOR GFR 3.27 MG/DL (0.55-1.02); GLOMERULAR FILTRATION RATE 14.7 (>39); MAGNESIUM LEVEL 2.5 MG/DL (1.8-2.4); POTASSIUM SERUM 4.4 MEQ/L (3.5-5.1)
--- NOTE | 2016-03-23 08:33 | IPNPDOC ---
Assessment/Plan Date Seen The patient was seen on 03/23/16. Problems Problems: (1) NAY (acute kidney injury) Status: Acute Problem Text: Creatinine = 3. This is higher than her baseline. She was given Meloxicam script in the ER the otehr day whcih may have contributed to her worsening renal function. I will hold ARB, start IVF, consult renal who follows her as outpatient and saw her last admission as well. 03/21 - Renal function continues to worsen Nephrology consulted - await further input Getting IVF at 80cc/hour, but also on Hydralazine 03/22 - Creatinine continues to climb despite IVF. Nephrology on consult CT abd pelvis yesterday shows polycystic kidneys but no hydronephrosis or obstructing stones 03/23 SCr 3.27, down from yesterday, she remains on IVF, Nephrology is following the pt. (2) UTI (urinary tract infection) Status: Acute Problem Text: present on admission - IV Rocephin ordered 03/21 - U/C grew>100,000 Pseudomonas. Switch to Fortaz at renal dose B/C negative IV access is an issue. I will switch to po Cipro (Renal Dose) to preserve her IV access for her IVF 03/23 C & S suggest sensitivity to Cipro, will continue. Abx D 08/05 (3) Fracture, femur, distal Status: Acute Response to Treatment: Stable Problem Text: I am told that Ortho saw the patient and recommended bedrest - Non-surgical fracture. no adequate brace available 03/21 - Ortho note hand written in chart - reviewed today. Bedrest as above Continue Percocet for pain D/C morphine. 03/23 received a dose this morning which would explain her pupils on exam, has not been receiving this consistently at all. (4) Hypertension Status: Chronic Response to Treatment: Worse Problem Text: Hold ARB due to NAY Increase Norvasc 03/21 - BP remains high - Norvasc dose increased yesterday, but only got 5 mg dose. She will get 7.5 mg today and is on Hydralazine as well 03/22 - BP better today - On Norvasc 7.5/ Hydralazine and Tenormin 03/22: bp still high, increase norvasc to 10mg. reduce atenolol to 50mg ( relatively vanda and beta blockade with bradycardia may reduce renal blood flow) 03/23 - pressures reasonably controlled at this point. (5) Constipation Status: Chronic Response to Treatment: Improving Problem Text: Bowel care added 03/21 - still no BM. MOM given by ortho but patient in ARF and now with hypermagnesemia. D/C MOM. Increase Miralax 03/22 - CT abd pelvis showed Left colonic distension and retained stool. Now having loose BMs. Back off on bowel care. Check GI panel. 03/23 - no GI panel, loose stools have resolved (6) Anemia Status: Chronic Response to Treatment: Stable Problem Text: Recent GI bleed (see previous admission) - No further active bleeding. Hgb stable (7) Dysarthria Status: Acute Response to Treatment: Stable Problem Text: speech is thick and slow. PAtient has some trouble with word finding, but had that at last admission as well. Thick speech seems to be related to dry mucouis membranes. 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 Check Ammonia level 03/22 Ammonia level is normal, Neuro has seen the pt and feels as though her speech is body habitus/position/ and medication related. Recommended d/c Elavil which has been done. (8) Hypothyroidism Status: Chronic Response to Treatment: Stable Problem Text: on Levothyroxine TSH high, but likely related to acute illness. Repeat once stable (9) Hyperlipidemia Status: Chronic (10) Costochondritis Status: Acute Response to Treatment: Improving Problem Text: Add K-pad Encourage IS. CXR negative on admission. Lungs clear on exam. Sats normal (11) Liver cyst Status: Chronic Problem Text: 2.7 cm cyst on liver - will need interval f/u as outpatient Plan / VTE VTE Prophylaxis Ordered?: Yes (SQ heparin) Subjective Review of Systems CC/HPI Pt without new concerns this morning. Her son and dgt in law are at bedside, state that the pt has some confusion last night, resulting in a phone call to her dgt in [place], who she told she was lost and couldn't find her way. This apparently caused the family to panic and the pts came to the hospital last night at midnight to check on her. General: Reports: Fatigue Constitutional: Denies: Chills, Fever Eyes: Denies: Vision change ENT: Denies: Head Aches Pulmonary: Denies: Cough, Dyspnea Cardiovascular: Denies: Chest Pain, Palpitations Gastrointestinal: Reports: Diarrhea (mtp episodes yesterday morning, none since ), Denies: Nausea Neurological: Reports: Change in speech (slurred speech since admission), Weakness, Denies: Numbness Psych: Reports: Memory Issues Objective Physical Examination General Exam: Positive: Alert (Speech is thick ? due to dry tongue - seems mildly dysarthric), No Acute Distress Eye Exam: Positive: PERRLA (pupils are small) Chest Exam: Positive: Clear to auscultation, Normal air movement Heart Exam: Positive: Rate Normal Abdomen Exam: Positive: Normal bowel sounds, Soft, Negative: Tenderness Extremity Exam: Negative: Edema Neuro Exam: Positive: Other (speech is clearly improved. dysarthria is resolved at this point) Vital Signs/I&O Vital Signs Date Time Temp Pulse Resp B/P Pulse Ox O2 Delivery O2 Flow Rate FiO2 03/23/16 06:00 98.6 66 17 148/79 95 Room Air I&O- Last 24 Hours up to 6 AM 03/23/16 06:00 Intake Total 3114 ml Output Total 300 ml Balance 2814 ml Laboratory Data Labs 24H Laboratory Tests 2 03/22/16 08:33: Ammonia < 25 03/22/16 10:46: 03/23/16 06:24: Blood Urea Nitrogen 51H, Creatinine 3.27H, Sodium Level 140, Potassium Level 4.4 , Chloride Level 109H, Carbon Dioxide Level 19L, Calcium Level 8.2L, Aspartate Amino Transf (AST/SGOT) 15, Alanine Aminotransferase (ALT/SGPT) 14, Alkaline Phosphatase 120H, Total Bilirubin 0.4, Total Protein 5.0L, Albumin 2.4L, Albumin /Globulin Ratio 0.92L, Anion Gap 12, Glomerular Filtration Rate 14.7L, Lactic Acid Level 0.6, Magnesium Level 2.5H CBC/BMP Laboratory Tests 03/23/16 06:24 Calcium Level 8.2 L, Aspartate Amino Transf (AST/SGOT) 15, Alanine Aminotransferase (ALT/SGPT) 14, Alkaline Phosphatase 120 H, Total Bilirubin 0.4 , Total Protein 5.0 L, Albumin 2.4 L, Red Blood Count 3.28 L, Mean Corpuscular Volume 94.4, Mean Corpuscular Hemoglobin 31.3, Mean Corpuscular Hemoglobin Concent 33.1, Red Cell Distribution Width 13.3 Microbiology Microbiology 03/19/16 Blood Culture - Preliminary, Resulted No Growth after 72 hours. All specime... 03/19/16 Blood Culture - Preliminary, Resulted No Growth after 72 hours. All specime... 03/19/16 Urine Culture - Final, Complete Pseudomonas Aeruginosa JAYLEN ALVES PA-C Mar 23, 2016 08:33 Ahsan Patino MD Mar 23, 2016 16:07
[2016-03-23] MEDS: NYSTATIN 100,000 UNITS/GM TOPICAL PWD 15 GM TOP SCH ×2 (09:00→21:21)
[2016-03-23] MEDS: MIRALAX *UNIT DOSE* 17GM PACKET PO SCH (09:00)
[2016-03-23] MEDS: buPROPion **XL** TABLET 150MG (WELLBUTRIN XL) PO SCH (10:18)
[2016-03-23] MEDS: CALCITRIOL 0.25 MCG CAP (S0169) PO SCH (10:20)
[2016-03-23] MEDS: amLODIPine 10 MG TAB PO SCH (10:21)
[2016-03-23] MEDS: ALLOPURINOL 100 MG TAB PO SCH (10:21)
[2016-03-23] MEDS: **hydrALAZINE** 10 MG TAB PO SCH ×3 (10:25→21:19)
[2016-03-23] MEDS: SODIUM BICARBONATE 75 MEQ in NS 0.45% 1,000 ML IV SCH ×2 (12:14→22:45)
[2016-03-23 14:00] VITALS: BP 171/77
[2016-03-23] MEDS: ACETAMINOPHEN TAB 650MG DOSE (2X325MG) PO PRN (14:52)
--- NOTE | 2016-03-23 15:26 | REP ---
PICC LINE INSERTION: HISTORY: Need for IV fluid. Difficult to access. PROCEDURE: The patient was interviewed and informed consent was obtained. The right the upper arm was surveyed for venous access sites with ultrasound. The skin was marked over a right arm vein. The patient was placed in the ANGIO suite on the angiography table and the right arm was prepped and draped in the usual fashion. After patient safety time-out was articulated and agreed to, a micropuncture technique under ultrasound guidance performed and right basilic vein was accessed. 43 cm single lumen #4-[place] PICC line was installed with its tip positioned in the superior vena cava under fluoroscopic visualization. The patient tolerated the procedure well. The catheter was flushed with heparinized saline per hospital protocol and an OpSite dressing was affixed at the skin entry site. IMPRESSION: Right basilic vein single-lumen PICC line insertion. Signed by Raphael Fuentes MD 03/23/2016 04:56 P
--- NOTE | 2016-03-23 19:41 | IPN ---
DATE: 03/22/2016 Mrs. Romero is seen this morning on her bedside. She is lying in the bed flat and still not feeling good. She reports persistent dry mouth. She denies any nausea or vomiting. Her abdominal discomfort has improved, and she did have bowel movements. She denies any dysuria or hematuria. PHYSICAL EXAMINATION: Temperature 98.9 degrees Fahrenheit, heart rate 66 per minute and respiratory rate 18 per minute. Blood pressure 155/66 mmHg and oxygen saturation 97% on room air. Intake and output records from yesterday showed total intake 1769 and output 725. At the time of my visit, I have noticed that her IV fluid is not running. The patient reports multiple problems for getting a peripheral IV line. She has multiple bandages on her arm. Head is atraumatic. Oral mucosa is still dry. There is no thrush or ulcers. Pupils are equal and reactive to light and sclera is anicteric. Neck is supple and without jugular venous distention (JVD) or thyroid enlargement. Heart sounds are regular and lungs with good bilateral breath sounds. There is no wheezing or rales. Abdomen is soft and nontender today. Bowel sounds are normal. There is no palpable organomegaly. Extremities have no cyanosis or clubbing. Skin has no rash or ulcers. Neurologically she has no focal deficit. Today's labs show WBC count 11.3, hemoglobin 10.9 and hematocrit 32.3. Platelets 263. Serum ammonia level is less than 25. Sodium 138 and potassium 4.3. CO2 is 20, BUN 55 and creatinine is slightly elevated than yesterday up to 3.43. Glucose 82, calcium 8.5 and magnesium 2.8. PROBLEMS: 1. Acute renal failure superimposed on chronic kidney disease. Most likely this is prerenal azotemia. She was in mild positive fluid balance yesterday. However, I have noticed that her IV fluid is not running. She reports that all night she did not receive any IV fluids due to lack of an IV access. She also had incontinent urine and output may not have been accurately recorded. At present, we will continue with IV fluid hydration. I have advised the nursing staff to get a peripherally inserted central catheter (PICC) line if there is a problem with IV access. Her IV fluid is being increased to 120 mL per hour. She had a CT scan of the abdomen and pelvis done yesterday which has been reviewed independently. She did not have any hydronephrosis or kidney stone. She did have some colonic distension in the left colon and may have mild colitis. At this point, we will continue to hydrate her and monitor kidney function on a daily basis. 2. Dry mouth. I am concerned about the possibility of Sjogren's syndrome. I have stopped her Ditropan. We will check her Sjogren antibodies in addition to lupus serology. 3. Difficulty talking. This is most likely related to dry mouth. She seems to be at baseline mentation without a focal deficit. MRI of her head was done yesterday which did not show any acute infarct. She did have an old right cerebellar lacunar infarct.
--- NOTE | 2016-03-23 20:09 | IPN ---
DATE: 03/23/2016 SUBJECTIVE: Patient was seen and examined today in the morning at the bedside. She was laying in the bed getting IV fluid hydration but despite that, she is still complaining of very dry mouth. The patient was already started by Dr. Calvin on IV fluids and anticholinergic medications were stopped because of the dry mouth. Last 24-hour urines were noted. Patient's renal function is improving. Her creatinine is 3.27 today, but she is still complaining of pain in the left lower quadrant of the abdomen. A lactate level was done, which is normal. REVIEW OF SYSTEMS: Patient denies any fever or chills, rigors. She reports extreme dry mouth. She denies any chest pain, shortness of breath. She denies any nausea or vomiting, but she does report pain in the left lower quadrant of the abdomen. Patient denies any constipation or diarrhea. She also denies any dysuria. The rest of the review of systems is negative. OBJECTIVE: VITAL SIGNS: Temperature is 98.8 degrees Fahrenheit, blood pressure is 148/79, pulse is 66, respiratory rate of 17, saturating 95% on room air. INTAKE/OUTPUT: Urine output is not recorded well so far since overnight urine output recorded is 300 mL. PHYSICAL EXAMINATION: GENERAL: The patient is awake, alert, oriented times three, laying in bed, slightly drowsy. HEAD AND NECK EXAM: Extraocular muscles intact. Pupils equally round and reactive to light. Mucous membranes are very dry. Neck is supple. There is no jugular venous distention (JVD). CARDIOVASCULAR: S1, S2. Regular rate. No murmur, rub or gallop. RESPIRATORY: Chest is clear to auscultation bilaterally. Bilateral equal air entry. No rales or rhonchi. ABDOMEN: Abdomen is soft. Positive bowel sounds. Patient has mild tenderness to deep palpation of the left lower quadrant and the suprapubic region. No organomegaly. The patient is morbidly obese. EXTREMITIES: No clubbing or cyanosis. No rashes. The patient has a cast on the left leg because of recent history of fracture of distal end of femur. CENTRAL NERVOUS SYSTEM: No focal neurological deficit. Patient follows commands. She is awake, alert, oriented times three. SKIN: No rashes or ulcers. LABORATORY REVIEW: CBC showed a WBC of 9.2, hemoglobin 10.3, platelets are 280. BMP showed sodium 140, potassium 4.4, chloride 109, bicarbonate 19, BUN 51, creatinine 3.27, glucose was 88, lactate was 0.6, calcium 8.2, magnesium 2.5, albumin 2.7. Immunology: All the BERTHA, ANCA serology and Sjogren's serology is pending at this time. Microbiology: Urine culture is showing Pseudomonas aeruginosa, which is sensitive to Levaquin. The patient is currently taking ciprofloxacin which should cover Pseudomonas urinary tract infection (UTI). IMAGING: CAT scan of the abdomen and pelvis done on 03/21/2016 was reviewed by me. The patient has polycystic kidneys bilaterally and descending colon is distended without definitive evidence of Pneumatosis coli. CURRENT MEDICATIONS: Patient's current medications were all reviewed by me. She was on IV half normal saline (NS), and I switched her fluid to IV bicarbonate drip because of acidosis. She is still on ciprofloxacin 250 mg every 18 hours and the rest of the medications are the same as yesterday. I also stopped her Fleet enema because of history of chronic kidney disease. ASSESSMENT: A 75-year-old female with past medical history of polycystic kidney disease with chronic kidney disease stage IV and baseline creatinine as per recent admission was around 2.18. The patient was admitted at this time with a fracture of the left femur. Nephrology service is following the patient for acute kidney injury on chronic kidney disease stage IV, dehydration and metabolic acidosis. PLAN: 1. Acute kidney injury on chronic kidney disease stage IV. The patient is getting IV fluid hydration after she got the peripherally inserted central catheter (PICC) line. Her renal function is improving. Her creatinine is down to 3.27 today. Continue the IV fluid but I have changed the IV fluid to IV fluids containing sodium bicarbonate. 2. Metabolic acidosis. Metabolic acidosis is secondary to acute kidney injury. Lactate was normal. As mentioned above, I have changed her IV fluid to half NS plus 75 mEq of bicarbonate at 100 mL per hour. 3. Dry mouth. Dry mouth is most likely secondary to volume depletion. She was also on Ditropan which was stopped on admission. She is being hydrated with IV fluids. 4. Abdominal pain. The patient was recently admitted with lower gastrointestinal bleed. She got a colonoscopy done, and she had multiple small ulcerations because of ischemic colitis. The patient most likely has colitis at this time as well. CT scan showed some dilatation of the colon. Continue IV fluid hydration and consider getting gastroenterology on board as well. 5. Anemia in chronic kidney disease. The patient hemoglobin is 10.3 at this time, which is acceptable. Check the iron levels. No need of erythropoietin stimulating agent (ISABELLA) at this time. 6. Pseudomonas urinary tract infection. The patient is getting ciprofloxacin. Continue the current dose at this time. 7. Left distal femur fracture. The patient is currently in a cast. Management as per orthopedic surgery. Pain management as per primary team. I am going to decrease the frequency of the pain medication because of chronic kidney disease stage IV. 8. Hypertension. The patient's blood pressure is fluctuating at this time. Continue current dose of amlodipine 10 mg daily, atenolol 50 mg nightly, hydralazine 20 mg by mouth three times a day. I see the medications have been just changed by the primary team today. I would wait for the medications to start working. Further recommendations would be given tomorrow.
[2016-03-23] MEDS: ATENOLOL 50 MG TAB PO SCH (21:19)
[2016-03-23] MEDS: ATORVASTATIN 20 MG TAB PO SCH (21:20)
[2016-03-23 22:00] VITALS: BP 163/80
[2016-03-24] MEDS: HEPARIN SOD (PORCINE) 5000 UNITS/ML VIAL SC SCH ×3 (05:22→21:00)
[2016-03-24] MEDS: LEVOTHYROXINE 0.15 MG TAB (150 MCG) PO SCH (05:22)
[2016-03-24 06:00] VITALS: BP 167/76
[2016-03-24 06:25] LABS: MEAN CORPUSCULAR HEMOGLOBIN 30.8 pg (27.0-33.0); MEAN CORPUSCULAR HGB CONC 32.4 g/dl (32.0-36.5); MEAN CORPUSCULAR VOLUME 94.8 fl (80.0-96.0); RED CELL DISTRIBUTION WIDTH 13.6 % (11.5-14.5); WHITE BLOOD COUNT 7.4 K/mm3 (4.0-10.0)
[2016-03-24 06:39] LABS: ALBUMIN 2.2 GM/DL (3.2-5.2); CALCIUM LEVEL 8.4 MG/DL (8.8-10.2); CREATININE FOR GFR 2.97 MG/DL (0.55-1.02); GLOMERULAR FILTRATION RATE 16.5 (>39); MAGNESIUM LEVEL 2.3 MG/DL (1.8-2.4); POTASSIUM SERUM 4.4 MEQ/L (3.5-5.1)
--- NOTE | 2016-03-24 07:48 | IPNPDOC ---
Assessment/Plan Date Seen The patient was seen on 03/24/16. Problems Problems: (1) NAY (acute kidney injury) Status: Acute Problem Text: Creatinine = 3. This is higher than her baseline. She was given Meloxicam script in the ER the otehr day whcih may have contributed to her worsening renal function. I will hold ARB, start IVF, consult renal who follows her as outpatient and saw her last admission as well. 03/21 - Renal function continues to worsen Nephrology consulted - await further input Getting IVF at 80cc/hour, but also on Hydralazine 03/22 - Creatinine continues to climb despite IVF. Nephrology on consult CT abd pelvis yesterday shows polycystic kidneys but no hydronephrosis or obstructing stones 03/23 SCr 3.27, down from yesterday, she remains on IVF, Nephrology is following the pt. 03/24 - Patient's kidney function continues to improve. Nephrology is currently following. We will defer management to their service. (2) UTI (urinary tract infection) Status: Acute Problem Text: present on admission - IV Rocephin ordered 03/21 - U/C grew>100,000 Pseudomonas. Switch to Fortaz at renal dose B/C negative IV access is an issue. I will switch to po Cipro (Renal Dose) to preserve her IV access for her IVF 03/23 C & S suggest sensitivity to Cipro, will continue. Abx D 08/05 03/24 - Pseudomonas + urine culture with sensitivity to quinolones. Continue cipro (Day 6 or 7). She reports no trouble with urination. (3) Fracture, femur, distal Status: Acute Response to Treatment: Stable Problem Text: I am told that Ortho saw the patient and recommended bedrest - Non-surgical fracture. no adequate brace available 03/21 - Ortho note hand written in chart - reviewed today. Bedrest as above Continue Percocet for pain D/C morphine. 03/23 received a dose this morning which would explain her pupils on exam, has not been receiving this consistently at all. 03/24 - Patient states that her only issue with going home for bedrest would be difficulty getting to the restroom and shower. She might need STR until cleared by ortho for weight bearing. Will consult PFS for evaluation and discuss possible STR. (4) Hypertension Status: Chronic Response to Treatment: Worse Problem Text: Hold ARB due to NAY Increase Norvasc 03/21 - BP remains high - Norvasc dose increased yesterday, but only got 5 mg dose. She will get 7.5 mg today and is on Hydralazine as well 03/22 - BP better today - On Norvasc 7.5/ Hydralazine and Tenormin 03/22: bp still high, increase norvasc to 10mg. reduce atenolol to 50mg ( relatively vanda and beta blockade with bradycardia may reduce renal blood flow) 03/23 - pressures reasonably controlled at this point. 03/24 - controlled. Continue current antihypertensive regimen without changes. (5) Constipation Status: Chronic Response to Treatment: Improving Problem Text: Bowel care added 03/21 - still no BM. MOM given by ortho but patient in ARF and now with hypermagnesemia. D/C MOM. Increase Miralax 03/22 - CT abd pelvis showed Left colonic distension and retained stool. Now having loose BMs. Back off on bowel care. Check GI panel. 03/23 - no GI panel, loose stools have resolved 03/24 - no BM yesterday. Patient has miralax ordered if she does not have a BM by this evening or tomorrow, she plans to ask for a dose. (6) Anemia Status: Chronic Response to Treatment: Stable Problem Text: Recent GI bleed (see previous admission) - No further active bleeding. Hgb stable (7) Dysarthria Status: Acute Response to Treatment: Stable Problem Text: speech is thick and slow. PAtient has some trouble with word finding, but had that at last admission as well. Thick speech seems to be related to dry mucouis membranes. 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 Check Ammonia level 03/22 Ammonia level is normal, Neuro has seen the pt and feels as though her speech is body habitus/position/ and medication related. Recommended d/c Elavil which has been done. 03/24 - neuro consulted and feel that it is most likely mechanical rather than neurologic. If she requires it, they will see her outpatient after discharge. Speech appears normal today, however this is my first time speaking with this patient. (8) Hypothyroidism Status: Chronic Response to Treatment: Stable Problem Text: on Levothyroxine TSH high, but likely related to acute illness. Repeat once stable (9) Hyperlipidemia Status: Chronic (10) Costochondritis Status: Acute Response to Treatment: Improving Problem Text: Add K-pad Encourage IS. CXR negative on admission. Lungs clear on exam. Sats normal (11) Liver cyst Status: Chronic Problem Text: 2.7 cm cyst on liver - will need interval f/u as outpatient Plan / VTE VTE Prophylaxis Ordered?: Yes (SQ heparin) Subjective Review of Systems CC/HPI The patient is a 75-year-old female admitted with a reason for visit of Fx Femur Distal. Events since last encounter Patient seen at bedside this morning. She states she is feeling better. She denies any confusion like that which occurred two nights ago. No trouble overnight reported this morning. She is curious if she will need STR or be able to go home. Constitutional: Denies: Chills, Fever Pulmonary: Denies: Cough, Dyspnea Cardiovascular: Reports: Chest Pain (musculoskeletal pectoralis pain from EMS moving her on presentation.) Gastrointestinal: Denies: Abdominal Pain, Constipation, Diarrhea, Hematochezia , Melena, Nausea, Vomiting Genitourinary: Denies: Dysuria, Frequency Psych: Reports: Mood Normal Objective Physical Examination General Exam: Positive: Alert (speech appears normal today), Cooperative, No Acute Distress Eye Exam: Positive: PERRLA (pupils are small) Chest Exam: Positive: Clear to auscultation, Normal air movement Heart Exam: Positive: Rate Normal, Regular Rhythm Abdomen Exam: Positive: Normal bowel sounds, Soft, Negative: Tenderness Extremity Exam: Negative: Edema Neuro Exam: Positive: Other (speech is clearly improved. dysarthria is resolved at this point) Psych Exam: Positive: Oriented x 3 Vital Signs/I&O Vital Signs Date Time Temp Pulse Resp B/P Pulse Ox O2 Delivery O2 Flow Rate FiO2 03/24/16 06:00 98.3 65 20 167/76 95 Room Air I&O- Last 24 Hours up to 6 AM 03/24/16 06:00 Intake Total 4364 ml Output Total 0 ml Balance 4364 ml Laboratory Data Labs 24H Laboratory Tests 2 03/23/16 21:34: Urine Amorphous Sediment , Urine Appearance CLOUDYH, Urine Color YELLOW, Urine pH 6.0, Urine Specific Downing 1.005, Urine Protein 1+H, Urine Glucose (UA) NEGATIVE, Urine Ketones NEGATIVE, Urine Urobilinogen 0.2, Urine Bilirubin NEGATIVE, Urine Leukocyte Esterase 3+H, Urine Bacteria (Auto) 3+H, Urine Blood 1 +H, Urine Calcium Carbonate Cryst(Auto) , Urine Calcium Oxalate Cryst (Auto) , Urine Calcium Phosphate Caridad (Auto) , Urine Cellular Casts , Urine Cystine Crystals , Urine Granular Casts (Auto) , Urine Hyaline Casts (Auto) 0, Urine Leucine Crystals , Urine Mucus (Auto) SMALL, Urine Nitrite NEGATIVE, Urine Oval Fat Bodies (Auto) , Urine RBC (Auto) 14H, Urine Renal Epithelial Cells , Urine Sperm (Auto) , Urine Squamous Epithelial Cells 1, Urine Transitional Epithelial Cells , Urine Trichomonas (Auto) , Urine Triple Phosphate Cryst (Auto) , Urine Tyrosine Crystals , Urine Uric Acid Crystals (Auto) , Urine WBC (Auto) TNTCH, Urine Waxy Casts (Auto) , Urine Yeast-Like Cells (Auto) 03/24/16 05:21: Albumin 2.2L, Blood Urea Nitrogen 43H, Creatinine 2.97H, Sodium Level 144, Potassium Level 4.4, Chloride Level 110H, Carbon Dioxide Level 23, Anion Gap 11 , Calcium Level 8.4L, Glomerular Filtration Rate 16.5L, Magnesium Level 2.3, Phosphorus Level 4.0 CBC/BMP Laboratory Tests 03/24/16 05:21 Anion Gap 11, Red Blood Count 3.27 L, Mean Corpuscular Volume 94.8, Mean Corpuscular Hemoglobin 30.8, Mean Corpuscular Hemoglobin Concent 32.4, Red Cell Distribution Width 13.6 Microbiology Microbiology 03/19/16 Blood Culture - Preliminary, Resulted No Growth after 72 hours. All specime... 03/19/16 Blood Culture - Preliminary, Resulted No Growth after 72 hours. All specime... 03/19/16 Urine Culture - Final, Complete Pseudomonas Aeruginosa GME ATTESTATION GME ATTESTATION My preceptor for this patient encounter was physically present in the building during the encounter and was fully available. As needed, all aspects of the patient interview, examination, medical decision making process, and medical care plan development were reviewed and approved by the preceptor. Preceptor is aware and concurs with the plan as stated in the body of this note and will attest to such by his/her cosignature. ZAY LOUIE, Mar 24, 2016 07:48
[2016-03-24] MEDS: ALLOPURINOL 100 MG TAB PO SCH (10:48)
[2016-03-24] MEDS: **hydrALAZINE** 10 MG TAB PO SCH ×3 (10:49→20:59)
[2016-03-24] MEDS: CALCITRIOL 0.25 MCG CAP (S0169) PO SCH (10:50)
[2016-03-24] MEDS: buPROPion **XL** TABLET 150MG (WELLBUTRIN XL) PO SCH (10:50)
[2016-03-24] MEDS: amLODIPine 10 MG TAB PO SCH (10:50)
[2016-03-24] MEDS: MIRALAX *UNIT DOSE* 17GM PACKET PO SCH (10:51)
[2016-03-24] MEDS: NYSTATIN 100,000 UNITS/GM TOPICAL PWD 15 GM TOP SCH ×2 (10:51→20:59)
[2016-03-24] MEDS: NS 0.45% 1,000 ML IV SCH (11:52)
[2016-03-24] MEDS: CIPROFLOXACIN 250 MG TAB PO SCH (14:46)
[2016-03-24] MEDS: ACETAMINOPHEN TAB 650MG DOSE (2X325MG) PO PRN (14:46)
[2016-03-24] MEDS: SODIUM CHLORIDE 0.9% INJ 10 ML SYR IV SCH (14:48)
[2016-03-24] MEDS: ATORVASTATIN 20 MG TAB PO SCH (20:58)
[2016-03-24] MEDS: ATENOLOL 50 MG TAB PO SCH (20:59)
[2016-03-24 22:00] VITALS: BP 130/64
[2016-03-25] MEDS: NS 0.45% 1,000 ML IV SCH ×2 (00:24→09:25)
[2016-03-25] MEDS: LEVOTHYROXINE 0.125 MG TAB (125 MCG) PO SCH (05:29)
[2016-03-25] MEDS: SODIUM CHLORIDE 0.9% INJ 10 ML SYR IV SCH ×2 (05:30→17:14)
[2016-03-25] MEDS: HEPARIN SOD (PORCINE) 5000 UNITS/ML VIAL SC SCH ×3 (05:30→21:19)
[2016-03-25 05:45] LABS: MEAN CORPUSCULAR HEMOGLOBIN 30.4 pg (27.0-33.0); MEAN CORPUSCULAR HGB CONC 31.6 g/dl (32.0-36.5); RED CELL DISTRIBUTION WIDTH 14.3 % (11.5-14.5); WHITE BLOOD COUNT 9.4 K/mm3 (4.0-10.0)
[2016-03-25 06:00] VITALS: BP 144/65
[2016-03-25 06:27] LABS: CALCIUM LEVEL 8.3 MG/DL (8.8-10.2); CREATININE FOR GFR 2.85 MG/DL (0.55-1.02); GLOMERULAR FILTRATION RATE 17.3 (>39); MAGNESIUM LEVEL 2.1 MG/DL (1.8-2.4); POTASSIUM SERUM 4.2 MEQ/L (3.5-5.1)
[2016-03-25] MEDS: CIPROFLOXACIN 250 MG TAB PO SCH (09:20)
[2016-03-25] MEDS: MIRALAX *UNIT DOSE* 17GM PACKET PO SCH (09:20)
[2016-03-25] MEDS: **hydrALAZINE** 10 MG TAB PO SCH ×3 (09:20→21:20)
[2016-03-25] MEDS: CALCITRIOL 0.25 MCG CAP (S0169) PO SCH (09:20)
[2016-03-25] MEDS: buPROPion **XL** TABLET 150MG (WELLBUTRIN XL) PO SCH (09:20)
[2016-03-25] MEDS: amLODIPine 10 MG TAB PO SCH (09:20)
[2016-03-25] MEDS: NYSTATIN 100,000 UNITS/GM TOPICAL PWD 15 GM TOP SCH ×2 (09:21→21:19)
[2016-03-25] MEDS: ALLOPURINOL 100 MG TAB PO SCH (09:23)
--- NOTE | 2016-03-25 09:34 | REP ---
Clinical: Known femoral fracture. Technique: AP and lateral views. Comparison: 03/19/2016. Findings: There is a comminuted intercondylar fracture involving the distal femur and predominantly medial femoral condyle extending to the joint space with associated swelling and effusion. No significant periosteal reaction or callus formation is identified to suggest appropriate healing. Based on comparison, a nondisplaced fracture involving the superior aspect of the patella cannot be excluded although this is not visualized on current images. Impression: Continued evidence for distal femoral fracture primarily involving the medial femoral condyle as described and detailed above. Signed by Carmine Johnson MD 03/25/2016 09:25 A
[2016-03-25] MEDS: ACETAMINOPHEN TAB 650MG DOSE (2X325MG) PO PRN (09:59)
[2016-03-25] MEDS ORDERED: NS 0.45% 1,000 ML IV SCH (10:55)
--- NOTE | 2016-03-25 21:03 | IPN ---
DATE: 03/25/2016 SUBJECTIVE: Ainsley is seen in [facility]. She is seen with a room full of relatives, has her bed by a [place] tree there. She has good spirits today. No abdominal pain that she had when she got admitted. OBJECTIVE: 144/70, respirations 18, 97% oxygen saturation. LUNGS: Clear. HEART: Regular rhythm. ABDOMEN: Soft, nontender, nondistended. EXTREMITIES: Trace peripheral edema. LABORATORY DATA: CBC unremarkable. CMP looks good. Creatinine is down to 2.85. Potassium normal. IMPRESSION: 1. Acute kidney injury continues to improve. Nephrology following. 2. Urinary tract infection on Cipro, day seven. 3. Distal femur fracture, activity per orthopedics. 4. Hypertension. Well controlled on current regimen. 5. Diarrhea, this has resolved. 6. Hypothyroidism. Abnormal thyroid stimulating hormone (TSH) attributable to acute illness. Today we are stopping her intravenous (IV) fluids. She is taking oral well. No other changes necessary today.
[2016-03-25] MEDS: ATENOLOL 50 MG TAB PO SCH (21:18)
[2016-03-25] MEDS: ATORVASTATIN 20 MG TAB PO SCH (21:18)
[2016-03-25] MEDS: PERCOCET 5MG/325MG TAB PO PRN (21:22)
[2016-03-25 22:00] VITALS: BP 151/67
[2016-03-26] MEDS: CIPROFLOXACIN 250 MG TAB PO SCH ×2 (03:40→21:01)
[2016-03-26] MEDS: LEVOTHYROXINE 0.15 MG TAB (150 MCG) PO SCH (05:50)
[2016-03-26] MEDS: HEPARIN SOD (PORCINE) 5000 UNITS/ML VIAL SC SCH ×3 (05:50→21:00)
[2016-03-26] MEDS: SODIUM CHLORIDE 0.9% INJ 10 ML SYR IV SCH ×2 (05:50→17:51)
[2016-03-26 06:00] VITALS: BP 132/75
[2016-03-26 06:07] LABS: MEAN CORPUSCULAR HEMOGLOBIN 30.9 pg (27.0-33.0); MEAN CORPUSCULAR VOLUME 96.3 fl (80.0-96.0); RED CELL DISTRIBUTION WIDTH 13.6 % (11.5-14.5)
[2016-03-26 06:38] LABS: CALCIUM LEVEL 8.5 MG/DL (8.8-10.2); CREATININE FOR GFR 2.91 MG/DL (0.55-1.02); GLOMERULAR FILTRATION RATE 16.9 (>39); POTASSIUM SERUM 4.3 MEQ/L (3.5-5.1)
[2016-03-26] MEDS: CALCITRIOL 0.25 MCG CAP (S0169) PO SCH (10:48)
[2016-03-26] MEDS: **hydrALAZINE** 10 MG TAB PO SCH ×3 (10:49→21:04)
[2016-03-26] MEDS: buPROPion **XL** TABLET 150MG (WELLBUTRIN XL) PO SCH (10:49)
[2016-03-26] MEDS: MIRALAX *UNIT DOSE* 17GM PACKET PO SCH (10:49)
[2016-03-26] MEDS: ALLOPURINOL 100 MG TAB PO SCH (10:49)
[2016-03-26] MEDS: amLODIPine 10 MG TAB PO SCH (10:49)
[2016-03-26] MEDS: NYSTATIN 100,000 UNITS/GM TOPICAL PWD 15 GM TOP SCH ×2 (10:50→21:02)
--- NOTE | 2016-03-26 11:31 | IPN ---
DATE: 03/26/2016 Ainsley feels well. Her spirits are good. Had a nice visit with the family yesterday. No chest pain or shortness of breath. She has some chest wall pain that has been present since she was lifted by emergency medical dermatologist (manager fine dining) on both sides of her sternum and reproducible by palpation. PHYSICAL EXAMINATION: VITAL SIGNS: Blood pressure 132/75, pulse 66, respiratory rate 16, 95% oxygen saturation. GENERAL APPEARANCE: Resting comfortably, in no distress. LUNGS: Clear. HEART: Regular rhythm. ABDOMEN: Soft, nontender. No peripheral edema. LABORATORY DATA: CBC and BMP look good. Creatinine is stable at 2.9. PLAN: We stopped her intravenous (IV) fluids. Today is day #6 of her Cipro. She probably should have this for 10 days. She might be ready for retirement facility (SNF) level tomorrow. Will ask patient and family services (PFS) to help with this. Activity as per orthopedics. Otherwise plan is unchanged from that noted yesterday.
[2016-03-26 14:00] VITALS: BP 151/75
[2016-03-26] MEDS: ATORVASTATIN 20 MG TAB PO SCH (21:01)
[2016-03-26] MEDS: ACETAMINOPHEN TAB 650MG DOSE (2X325MG) PO PRN (21:01)
[2016-03-26] MEDS: ATENOLOL 50 MG TAB PO SCH (21:03)
[2016-03-26 22:00] VITALS: BP 137/70
[2016-03-27] MEDS: ACETAMINOPHEN TAB 650MG DOSE (2X325MG) PO PRN ×4 (03:57→21:00)
[2016-03-27 06:00] VITALS: BP 142/62
[2016-03-27] MEDS: LEVOTHYROXINE 0.125 MG TAB (125 MCG) PO SCH (06:25)
[2016-03-27] MEDS: SODIUM CHLORIDE 0.9% INJ 10 ML SYR IV SCH ×2 (06:25→16:48)
[2016-03-27] MEDS: HEPARIN SOD (PORCINE) 5000 UNITS/ML VIAL SC SCH ×3 (06:26→22:41)
[2016-03-27] MEDS ORDERED: FLEET ENEMA PR PRN (06:45)
[2016-03-27] MEDS ORDERED: BISACODYL 10 MG SUPP PR PRN (06:45)
[2016-03-27] MEDS: MIRALAX *UNIT DOSE* 17GM PACKET PO SCH (09:32)
[2016-03-27] MEDS: CALCITRIOL 0.25 MCG CAP (S0169) PO SCH (09:33)
[2016-03-27] MEDS: **hydrALAZINE** 10 MG TAB PO SCH ×3 (09:33→20:59)
[2016-03-27] MEDS: amLODIPine 10 MG TAB PO SCH (09:33)
[2016-03-27] MEDS: ALLOPURINOL 100 MG TAB PO SCH (09:33)
[2016-03-27] MEDS: SENOKOT S TAB PO SCH ×2 (09:34→20:59)
[2016-03-27] MEDS: NYSTATIN 100,000 UNITS/GM TOPICAL PWD 15 GM TOP SCH ×2 (09:34→20:59)
[2016-03-27] MEDS: buPROPion **XL** TABLET 150MG (WELLBUTRIN XL) PO SCH (09:34)
[2016-03-27] MEDS ORDERED: BENZONATATE 100 MG CAP PO PRN (09:45)
--- NOTE | 2016-03-27 10:18 | IPN ---
DATE: 03/27/2016 Ainsley is seen on [facility]. She is retirement facility (SNF) level of care effective today. She has no acute needs. sternal border that has onset when she was being lifted by the lithography contact worker and they crossed her arms across her chest, lifted her and she felt that she "got her chest crushed." She has had pain since then. Now she has a cough. She is not short of breath. There is no fever, but the cough has increased over the last day. PHYSICAL EXAMINATION: 146/62, pulse 60, respiratory rate 18, 96% oxygen saturation. General appearance: Resting comfortably. No distress. Lungs few wheezes. Heart regular rhythm. Abdomen soft, nontender. No peripheral edema. LABORATORIES: No labs ordered for today. She has a renal profile pending tomorrow. PLAN: 1. Chest wall pain. She has a cough now. Will get a chest x-ray to make sure she hasn't picked up a pneumonia. 2. Pseudomonas urinary tract infection. This is day six of by mouth Cipro. She had been on Rocephin for two days and then Fortaz for one dose and then the Cipro, so this is really her ninth day of antibiotics, so I would suggest stopping the Cipro tomorrow. 3. Distal femur fracture. Activity as per orthopedics. I will get a PM R consult. 4. Hypertension. Well controlled. 5. Hypothyroidism. This is stable. 6. Chronic kidney disease, stage 4. GFR is stable. She is being followed intermittently by nephrology.
[2016-03-27 10:40] LABS: ALBUMIN 2.5 GM/DL (3.2-5.2); CALCIUM LEVEL 8.7 MG/DL (8.8-10.2); CREATININE FOR GFR 2.94 MG/DL (0.55-1.02); GLOMERULAR FILTRATION RATE 16.7 (>39); PHOSPHORUS LEVEL 4.7 MG/DL (2.5-4.9); POTASSIUM SERUM 4.5 MEQ/L (3.5-5.1)
--- NOTE | 2016-03-27 11:56 | REP ---
CHEST, TWO VIEWS: Two views of the chest are performed and compared to prior studies, 03/19/2016 and 06/07/2015. There is no acute infiltrate or pulmonary edema. There is mild left ventricular prominence. The mediastinal silhouette is unchanged. There is a right arm PICC line present. IMPRESSION: No acute infiltrate. Signed by Juliano Figueroa MD 03/27/2016 04:11 P
[2016-03-27] MEDS: BICITRA 30ML SOLN UDC PO SCH ×3 (12:43→20:58)
[2016-03-27 14:00] VITALS: BP 139/65
[2016-03-27] MEDS: CIPROFLOXACIN 250 MG TAB PO SCH (14:22)
--- NOTE | 2016-03-27 19:43 | IPN ---
DATE: 03/24/2016 SUBJECTIVE: Patient was seen and examined at the bedside today in the morning. She was feeling better. Her pain in abdomen is improving. She had a big bowel movement this morning and after that her abdominal pain has gotten significantly better. Her renal function is also improving with the IV fluid hydration. Her dry mouth is also significantly improving as compared with yesterday. REVIEW OF SYSTEMS: Patient reports that she still has dry mouth but it is getting beter. She denies any chest pain, shortness of breath. She denies any nausea or vomiting. She does report pain in the abdomen is significantly better and she had a bowel movement today. The rest of the review of systems is negative. OBJECTIVE: VITAL SIGNS: Temperature is 93.3 degrees Fahrenheit, blood pressure is 167/76, pulse is 65, respiratory rate of 18, saturating 95% on room air. INTAKE/OUTPUT: Urine output recorded as only 300 mL yesterday and there is no urine output recorded today. Weight on the bed scale is 118.5 kg. PHYSICAL EXAMINATION: GENERAL: The patient is awake, alert, oriented times three, laying in bed, in no apparent distress. She is much more alert today. HEAD AND NECK EXAM: Extraocular muscles intact. Pupils equally round and reactive to light. Mucous membranes are moist today. Neck is supple. There is no jugular venous distention (JVD). CARDIOVASCULAR: S1, S2. Regular rate. No murmur, rub or gallop. RESPIRATORY: Chest is clear to auscultation bilaterally. Bilateral equal air entry. No rales or rhonchi. ABDOMEN: Abdomen is soft. Positive bowel sounds. Non-tender. No ascites. No hepatosplenomegaly. EXTREMITIES: No clubbing or cyanosis. No rashes. The patient has a cast on the left leg because of recent fracture distal end of femur. CENTRAL NERVOUS SYSTEM: No focal neurological deficit. Power 5/5 in all extremieties. SKIN: No rashes. LABORATORY REVIEW: CBC showed a WBC of 9.4, hemoglobin 10.1, platelets are 318. BMP showed sodium 144, potassium 4.4, chloride 110, bicarbonate 23, BUN 43, creatinine 2.97, better than yesterday it was 3.27 yesterday. Calcium is 8.4, phosphorous 4, magnesium 2.3, albumin 2.2. MICROBIOLOGY: No new cultures available. CURRENT MEDICATIONS: Patient's current medications were all reviewed by me. Her IV bicarbonate was stopped by me today and she was started on IV half normal saline at 75 mL an hour. There is no other change in the medications today. ASSESSMENT: A 75-year-old female with past medical history of adult polycystic kidney disease with chronic kidney disease stage IV, baseline creatinine around 2.8. Patient was admitted at this time with a fracture of the left femur. Nephrology service following the patient for acute kidney injury on chronic kidney disease stage IV, dehydration and metabolic acidosis. PLAN: 1. Acute kidney injury on chronic kidney disease stage IV. The patient was getting IV fluid with bicarbonate. Her bicarbonate level is improving, I have switched her IV fluid normal saline. Continue the IV fluid hydration at this time. 2. Metabolic acidosis. Metabolic acidosis is secondary to acute kidney injury. She was receiving IV bicarbonate fluid. Serum bicarbonate is 23 today. I have started her on half normal saline only. If serum bicarbonate drops further I will start her on oral bicarb . 3. Dry mouth. Dry mouth was secondary to volume depletion and anticholinergic medications. Dry mouth is significantly better. Continue hydration at this time. 4. Abdominal pain. The patient's left lower quadrant abdominal pain is significantly better today, she moved her bowels. She does not have any tenderness at this time. The rest of the management is as per primary team. She recently had a colonoscopy done, which showed some ulcerative lesions secondary to ischemic colitis and management of blood pressure was recommended at that time. 5. Anemia and chronic kidney disease. The patient hemoglobin is 10.1 at this time, which is acceptable. No need of erythropoietin stimulating agent (ISABELLA) at this time. 6. Pseudomonas urinary tract infection. The patient's symptoms are a lot better at this time. She is currently on ciprofloxacin 250 mg every 18 hours. Continue the current dose. 7. Hypertension. The patient's blood pressure is slightly elevated at this time. She is currently on amlodipine 10 mg by mouth daily, atenolol 50 mg by mouth at bedtime, hydralazine 20 mg by mouth three times a day. Continue the current medications at this time. If blood pressure remains above 160 systolic by tomorrow then dose of hydralazine will be increased. Patient was on losartan at home. Wremafmgvwp-dnkfkiqkic-mejiac (BOBBY) inhibitor are usually very well effective in hypertension induces by polycystic kidneys. At this time I would continue to hold the coxekdgnhrb-dojgqfrshw-eomkye (BOBBY) inhibitor because she is recovering from acute kidney injury. Once patient recovers from acute kidney injury we will slowly restart lose dose cihhxtdjgvp-qojtfmtgnz-nemmfk (BOBBY) inhibitor as outpatient. MTDD
[2016-03-27] MEDS: ATORVASTATIN 20 MG TAB PO SCH (20:58)
[2016-03-27] MEDS: ATENOLOL 50 MG TAB PO SCH (20:59)
--- NOTE | 2016-03-27 21:04 | IPN ---
DATE: 03/25/2016 SUBJECTIVE: Patient was seen and examined at the bedside today in the morning. She feels much better. She reports that she still has pain in the left leg, but otherwise her appetite is better. Her dry mouth is getting better. Her renal function is also improving with the current intravenous (IV) fluid hydration. REVIEW OF SYSTEMS: Patient denies any fevers, chills, rigors, headache, nausea, vomiting, chest pain, shortness of breath, pain in abdomen, constipation, diarrhea. She does report left leg pain at the fracture site. Rest of review of systems is negative. OBJECTIVE: Vital signs: Temperature is 98.4 degrees Fahrenheit, blood pressure is 144/65, pulse is 64, respiratory rate of 16, saturating 96% on room air. Intake and output: The urine output is not recorded well. He weight in the bed scale is 119.6 kg. PHYSICAL EXAMINATION: GENERAL: Patient is awake, alert, oriented times three, lying in bed. No apparent distress. HEAD AND NECK: Extraocular muscles intact. Pupils equally round and reactive to light. Mucous membranes are moist. NECK: Supple. There is no jugular venous distention (JVD). CARDIOVASCULAR: S1, S2, regular rate. No murmur, rub, or gallop. RESPIRATORY: Chest is clear to auscultation bilaterally. Bilateral equal air entry. No rales or rhonchi. ABDOMEN: Soft, positive bowel sounds. No tenderness. She is morbidly obese. EXTREMITIES: No clubbing or cyanosis. No rashes. Patient has a cast on the left leg because of recent history of fracture, and she has trace edema of the bilateral lower extremities. CENTRAL NERVOUS SYSTEM: No focal neurological deficit. Power is 5/5 in all extremities. SKIN: No rashes or ulcers. LABORATORY REVIEW: CBC showed a WBC 9.4, hemoglobin is 10, platelets are 342. BMP showed sodium 144, potassium 4.2, chloride 110, bicarbonate 23, BUN 41, creatinine 2.85. It was 2.97 yesterday. Calcium is 8.3, magnesium is 2.1. IMAGING: X-ray of the knee was done today morning, which showed continued evidence of distal femoral fracture, primarily involving the medial femoral condyle. CURRENT MEDICATIONS: Patient's medications were all reviewed by me. She is currently on half normal saline (NS) at 75 mL per hour. Rest of the medications are still the same as compared with yesterday's medications. ASSESSMENT: A 75-year-old female with past medical history of adult polycystic kidney disease with chronic kidney disease, stage IV, baseline creatinine around 2.18. Patient was admitted this time with fracture of the left femur. Nephrology service following the patient for acute kidney injury on chronic kidney disease, stage IV. PLAN: 1. Acute kidney injury on chronic kidney disease, stage IV. Patient's creatinine is slowly improving every day with IV fluid hydration. I will continue the IV fluid half NS at 75 mL an hour, and the fluid will be discontinued today in the evening. Patient reports that she is drinking enough liquids orally now. I will stop the fluid tonight and see how her kidney function responds. Patient was encouraged to continue oral hydration. 2. Metabolic acidosis. Metabolic acidosis was secondary to acute kidney injury. Her IV bicarbonate was stopped yesterday, and serum bicarbonate level was stable. No need of bicarbonate administration at this time. 3. Anemia of chronic kidney disease. Patient's hemoglobin continues to be around 10. No need of erythropoiesis-stimulating agent (ISABELLA) at this time. If hemoglobin level drops below 10, then I would give her a dose of ISABELLA. 4. Pseudomonas urinary tract infection (UTI). Patient continues to be on ciprofloxacin 200 mg by mouth every 18 hours. Last dose will be on March 29. 5. Hypertension. Patient's blood pressure is acceptable at this time. Continue current dose of amlodipine 10 mg by mouth daily, atenolol 50 mg by mouth at bedtime. 6. Hydralazine 20 mg by mouth three times a day. I would not restart the angiotensin-converting enzyme (BOBBY) inhibitors at this time because patient is recovering from acute kidney injury.
[2016-03-27 22:00] VITALS: BP 141/71
[2016-03-28] MEDS: HEPARIN SOD (PORCINE) 5000 UNITS/ML VIAL SC SCH ×3 (05:30→21:08)
[2016-03-28] MEDS: LEVOTHYROXINE 0.15 MG TAB (150 MCG) PO SCH (05:30)
[2016-03-28] MEDS: SODIUM CHLORIDE 0.9% INJ 10 ML SYR IV SCH (05:30)
[2016-03-28 06:00] VITALS: BP 162/67
--- NOTE | 2016-03-28 07:39 | CR ---
DATE OF CONSULTATION: 03/24/[address] Phan from the [facility] practice services. HISTORY OF PRESENT ILLNESS: Ms. Romero is a 75-year-old female currently admitted to the medical service for a nondisplaced distal left femur fracture and has mainly been bedridden since admission. I was asked to take a look at the patient. She had a previous history of what appears to ischemic colitis when she presented to the hospital on 03/05/2016 for hematochezia. Colonoscopy was done by Dr. Farrell at that time on 03/07/2016 and found an area at the descending colon towards the splenic flexure and this was biopsied, showing evidence for what most likely was ishemic colitis. Her hematochezia resolved, and subsequently was discharged home on 03/09/2016. Unfortunately, had a fall for which she had to return. Also, it seems like during this admission is having problems with her kidney function as she is being seen by the nephrology service and was placed on a bicarbonate drip. Her electrolytes still has been fairly normal except for some elevated sodium. As mentioned, patient has not had a bowel movement, has been complaining of abdominal pain and bloating, though no nausea. She reports poor appetite. Several bowel regimen has been tried, including MiraLAX and other laxatives with no effect. She had a CT of abdomen and pelvis done on 03/21/2016 showing colonic distension of the left colon and evidence of pneumatosis with presence of retained colonic stool in the left colon. With these findings, I was asked to render my opinion regarding whether she continues to have ischemic colitis and my recommendations regarding this, probably as well as help with the constipation. Prior to me coming to see the patient, nurse reports that she did have a bowel movement today and she felt better. ALLERGIES: To INTRAVENOUS (IV) CONTRAST and to IODINE. PAST MEDICAL HISTORY: Incudes: 1. Gastroesophageal reflux disease. 2. Gout. 3. Dyslipidemia. 4. Hypertension. 5. Hypothyroidism. 6. Kidney stones. 7. Obesity. 8. Polycystic kidney disease. 9. Chronic kidney disease. PAST SURGICAL HISTORY: Includes: 1. Kidney surgery for stones. 2. Lithotripsy. 3. Gastric bypass with subsequent reversal. 4. Hysterectomy. Her home medications were reviewed. She is not on any narcotics. At home, she is taking meloxicam. Her hospital medications were reviewed. She is taking MiraLAX one packet daily. She is on the Synthroid. She is on Percocet 5/325 mg tablet, one tablet every 4 hours as needed for pain, has not gotten any since 03/22/2016. REVIEW OF SYSTEMS: Not pertinent for the further problems of constipation. EXAMINATION: Her vitals were examined. She has been afebrile. Temperature of 93, pulse rate of 65, respiratory rate of 20, blood pressure 167/76, 95% at room air. She had three bowel movements on 03/22/2016. Patient reports those were small. She had one large bowel movement today. On examination, patient is seen. She appears to be awake, alert. Nursing reports she is mildly confused. She seems to be able to tell the details of her medical problem with some slight faltering on the dates. is at the bedside who corrects her with this. Moderately obese female. Skin appears warm and dry. She is normocephalic, atraumatic. Mildly pale palpebral conjunctivae. Anicteric sclerae. Lips appear dry. Neck is short, supple. Lungs are clear to auscultation bilaterally. No wheezing appreciated. Heart rate and rhythm are regular. No murmurs appreciated. Moderately obese. She has had several incision scars on her abdomen. None of them have a hernia. She has small umbilical hernia. It is nontender over the area. Her abdomen is moderately rounded, soft and nondistended, non-tympanitic. Nontender on palpation. Extremities with about 1+ edema that I note. Laboratories were reviewed. Her CBC shows WBC of 12.4, hemoglobin of 10.1, hematocrit of 31, and platelet count 318. Sodium 144, potassium 4.4, chloride is 110, CO2 is 23, BUN of 43, creatinine is 2.97. This appears to be mildly improving. Albumin is 2.2. IMAGING STUDIES: CT of the abdomen and pelvis done 03/21/2016. This was done without contrast. It shows colonic distension of the left colon without evidence of pneumatosis, moderate diffuse retained colonic stool at the left. No free intraperitoneal air or ascites. IMPRESSION: 1. Constipation. Probably an element of ileus given that she has been bedridden, and since she has been treated nonoperatively on talking to her recommendation of the orthopedic service is for her to remain bedridden. It may be a problem that will exacerbate her constipation. She also has worsening of her kidney function. Her electrolytes were alright. Her sodium is mildly elevated. This may also contribute to the colonic ileus. With regards to her history of ischemic colitis, she is not having any bloody stools at this point. Probably not an element that is contributing to her constipation or to her failure to have a bowel movement. I think it is more being bedridden and probably being weak, and it desirable if she is able to ambulate for her to walk , though this may be a problem with her fracture. But for now, I do not think she has any ongoing ischemic colitis, probably does not need antibiotics and probably should just be on some stool softeners preferably. I see no indication to perform a colonoscopy or other diagnostic procedures at this point. I will follow her up intermittently. If there is any questions, you can reach out to me and I will gladly assist with her care. PABLO
[2016-03-28] MEDS: NYSTATIN 100,000 UNITS/GM TOPICAL PWD 15 GM TOP SCH ×2 (09:00→21:08)
--- NOTE | 2016-03-28 10:32 | IPN ---
DATE OF SERVICE: 03/26/2016 SUBJECTIVE: The patient was seen and examined at the bedside. She feels better today. Her intravenous (IV) fluids were stopped yesterday evening. Her creatinine bumped up slightly from 2.85 to 2.9 after stopping IV fluid, but the patient reports that she has been trying to drink more fluid. She still reports some dry mouth, and she is trying to keep herself well hydrated at this time. REVIEW OF SYSTEMS: The patient denies any fever, chills, rigors, headache, nausea, vomiting. She does report some dry mouth. She denies any chest pain, shortness of breath, or cough. She also denies any pain abdomen, constipation, or diarrhea. She does report pain in left knee where the fracture site is. Rest of review of systems is negative. OBJECTIVE: Vital signs: Temperature is 98.5 degrees Fahrenheit, blood pressure is 151/75, pulse is 74, respiratory rate of 16, saturating 95% on room air. Intake and output: There is no urine output recorded at this time, and IV fluids are on hold. There is no bed scale weight available today. PHYSICAL EXAMINATION: GENERAL: The patient is awake, alert, oriented times three, lying in bed. No apparent distress. HEAD AND NECK EXAMINATION: Extraocular muscles intact. Pupils equally round and reactive to light. Mucous membranes are moist. NECK: Is supple. There is no jugular venous distention (JVD). CARDIOVASCULAR: S1, S2, regular rate. No murmur, rub, or gallop. RESPIRATORY: Chest is clear to auscultation bilaterally. Bilateral equal air entry. No rales or rhonchi. ABDOMEN: Is soft, positive bowel sounds. Nontender. No ascites. No organomegaly, except that her kidneys are palpable because of polycystic kidney disease. EXTREMITIES: No clubbing or cyanosis. No rashes. The patient has a cast on the left leg. CENTRAL NERVOUS SYSTEM: No focal neurological deficit. Power is 5/5 in all extremities. LABORATORY REVIEW: CBC showed a WBC of 10, hemoglobin 10.1, platelets of 344. BMP showed sodium 146, potassium 4.3, chloride 113, bicarbonate 24, BUN 38, creatinine is 2.91, calcium 8.5, magnesium is 2. IMAGING: An x-ray of the knee was done yesterday, which showed continued evidence of distal femoral fracture involving the medial femoral condyle. CURRENT MEDICATIONS: The patient's current medications were all reviewed by me. There is no change in the medications as compared with yesterday. ASSESSMENT: A 75-year-old female with past medical history of autosomal dominant polycystic kidney disease with chronic kidney disease stage IV, baseline creatinine around 2.18. The patient was admitted this time with fracture of the left femur. Nephrology service following the patient for acute kidney injury superimposed on chronic kidney disease stage IV. PLAN: 1. Acute kidney injury superimposed on chronic kidney disease stage IV. The patient was getting IV fluid hydration, but her blood pressure was going up. Her creatinine is down to 2.9. Her IV fluids were stopped yesterday. I will continue to monitor for improvement of the kidney function without IV fluid hydration. 2. Hypernatremia. The patient was advised to drink free water at this time. I will not give her D5 at this time. Sodium is 146. Hopefully, sodium level would improve with oral hydration. 3. Pseudomonas urinary tract infection (UTI). The patient is getting ciprofloxacin. The last dose will be on 03/29/2016. 4. Hypertension. Her blood pressure is slightly above target. Continue current dose of amlodipine 10 mg by mouth daily, atenolol 50 mg by mouth nightly, hydralazine 20 mg by mouth three times a day. I am not going to resume the angiotensin-converting enzyme (BOBBY) inhibitors until the pts kidney function improves. 5. Left distal femur fracture. The patient currently has a cast. Avoid nonsteroidal antiinflammatory drugs (NSAIDs) as pain medications. The rest of the management is as per orthopedic surgery.
[2016-03-28] MEDS: BICITRA 30ML SOLN UDC PO SCH ×3 (10:47→21:07)
[2016-03-28] MEDS: MIRALAX *UNIT DOSE* 17GM PACKET PO SCH (10:47)
[2016-03-28] MEDS: ACETAMINOPHEN TAB 650MG DOSE (2X325MG) PO PRN ×2 (10:47→18:29)
[2016-03-28] MEDS: ALLOPURINOL 100 MG TAB PO SCH (10:48)
[2016-03-28] MEDS: CALCITRIOL 0.25 MCG CAP (S0169) PO SCH (10:48)
[2016-03-28] MEDS: buPROPion **XL** TABLET 150MG (WELLBUTRIN XL) PO SCH (10:48)
[2016-03-28] MEDS: **hydrALAZINE** 10 MG TAB PO SCH ×3 (10:48→21:07)
[2016-03-28] MEDS: amLODIPine 10 MG TAB PO SCH (10:48)
[2016-03-28] MEDS: CIPROFLOXACIN 250 MG TAB PO SCH (10:48)
[2016-03-28] MEDS: SENOKOT S TAB PO SCH ×2 (10:49→21:08)
--- NOTE | 2016-03-28 11:54 | IPNPDOC ---
Assessment/Plan Date Seen The patient was seen on 03/28/16. Problems Problems: (1) NAY (acute kidney injury) Status: Acute Problem Text: Hx of cystic kidney disease. Creatinine is stable. Nephrology is currently following. (2) UTI (urinary tract infection) Status: Acute Problem Text: Present on admission. She was initially started on ceftriaxone, however U/C grew>100,000 Pseudomonas and she was switched to ciprofloxacin. She completes her course of Cipro on the . -Continue Cipro (3) Fracture, femur, distal Status: Acute Response to Treatment: Stable Problem Text: Discussed with orthopedics. Surgical options such as needed replacement and internal fixation options. They recommended continuing management with full leg brace and bed rest for 6-8 weeks. They recommended trapeze over bed for patient to help with getting onto the bed vasquez. This is been installed. Patient family services is working on finding placement, as her prison care and requirements are likely more than the family would be able to manage. - Awaiting placement with prison (4) Hypertension Status: Chronic Response to Treatment: Worse Problem Text: - Hold ARB due to NAY -Continue amlodipine 10 mg daily - When necessary hydralazine for systolics over 160 (5) Constipation Status: Chronic Response to Treatment: Improving Problem Text: -Schedule stool softeners -Schedule senna -Daily MiraLAX -When necessary suppository -When necessary Fleet enema (6) Anemia Status: Chronic Response to Treatment: Stable Problem Text: Recent GI bleed (see previous admission) - No further active bleeding. Hgb stable (7) Dysarthria Status: Resolved Response to Treatment: Stable Problem Text: No evidence of dysarthria on exam. No further recommendations by neurology. Normal imaging. (8) Hypothyroidism Status: Chronic Response to Treatment: Stable Problem Text: on Levothyroxine TSH high, but likely related to acute illness. Repeat once stable (9) Hyperlipidemia Status: Chronic (10) Costochondritis Status: Acute Response to Treatment: Improving Problem Text: Osteochondritis versus cartilage fracture from EMS lifting patient off the floor by her chest. Pain is tolerable. -Avoid NSAIDs due to renal function (11) Liver cyst Status: Chronic Problem Text: 2.7 cm cyst on liver - will need interval f/u as outpatient Plan / VTE VTE Prophylaxis Ordered?: Yes (SQ heparin) Disposition Plan for prison to manage unstable femur fracture, which is inoperable Subjective Review of Systems CC/HPI The patient is a 75-year-old female admitted with a reason for visit of Fx Femur Distal. Events since last encounter A she has no concerns today. She is still not had a bowel movement. Constitutional: Denies: Chills, Fever, Malaise Cardiovascular: Reports: Chest Pain (sternal pain when rolling to her side), Denies: Palpitations Gastrointestinal: Reports: Constipation, Denies: Abdominal Pain, Diarrhea, Nausea, Vomiting Genitourinary: Denies: Dysuria Psych: Reports: Mood Normal Other systems 10 point review systems is otherwise negative Objective Physical Examination General Exam: Positive: Alert, Cooperative, No Acute Distress, Other (morbidly obese) Eye Exam: Positive: Conjunctiva & lids normal ENT Exam: Positive: Mucous membr. moist/pink Chest Exam: Positive: Clear to auscultation, Normal air movement, Negative: Rales, Rhonchi, Wheezing Heart Exam: Positive: Rate Normal, Regular Rhythm Abdomen Exam: Positive: Normal bowel sounds, Other (morbidly obese), Soft, Negative: Tenderness Extremity Exam: Positive: Normal pulses, Other (left leg brace in place), Negative: Edema Skin Exam: Positive: Nl turgor and temperature Neuro Exam: Positive: Other (speech is clearly improved. dysarthria is resolved at this point) Psych Exam: Positive: Oriented x 3 Vital Signs/I&O Vital Signs Date Time Temp Pulse Resp B/P Pulse Ox O2 Delivery O2 Flow Rate FiO2 03/28/16 10:48 68 162/67 03/28/16 06:00 96.3 18 95 Room Air I&O- Last 24 Hours up to 6 AM 03/28/16 06:00 Intake Total 1920 ml Balance 1920 ml Laboratory Data Microbiology Microbiology 03/19/16 Blood Culture - Final, Complete NO GROWTH AFTER 5 DAYS 03/19/16 Blood Culture - Final, Complete NO GROWTH AFTER 5 DAYS 03/19/16 Urine Culture - Final, Complete Pseudomonas Aeruginosa LINDA CUNNINGHAM MD Mar 28, 2016 11:54 Psych Exam: Positive: Oriented x 3 Vital Signs/I&O Vital Signs Date Time Temp Pulse Resp B/P Pulse Ox O2 Delivery O2 Flow Rate FiO2 03/28/16 10:48 68 162/67 03/28/16 06:00 96.3 18 95 Room Air I&O- Last 24 Hours up to 6 AM 03/28/16 06:00 Intake Total 1920 ml Balance 1920 ml Laboratory Data Microbiology Microbiology 03/19/16 Blood Culture - Final, Complete NO GROWTH AFTER 5 DAYS 03/19/16 Blood Culture - Final, Complete NO GROWTH AFTER 5 DAYS 03/19/16 Urine Culture - Final, Complete Pseudomonas Aeruginosa LINDA CUNNINGHAM MD Mar 28, 2016 11:54
[2016-03-28 14:00] VITALS: BP 137/69
--- NOTE | 2016-03-28 15:00 | IPN ---
DATE OF SERVICE: 03/27/2016 SUBJECTIVE: The patient was seen and examined at the bedside. She reports that she is having good oral intake. She still reports some dryness of mouth. Her kidney function is stable at this time, and her blood pressure is better controlled today. REVIEW OF SYSTEMS: The patient denies any fever, chills, rigors, headache, nausea, vomiting, chest pain, shortness of breath, pain abdomen, constipation, or diarrhea. She still reports pain in the left leg fracture site. OBJECTIVE: VITAL SIGNS: Temperature is 97.7 degrees Fahrenheit, blood pressure is 139/65, pulse is 73, respiratory rate of 18, saturating 96% on room air. INTAKE AND OUTPUT: Urine output is not recorded. Weight on the bed scale is 119 kg. PHYSICAL EXAMINATION: GENERAL: The patient is morbidly obese, awake, alert, lying in bed. No apparent distress. HEAD AND NECK EXAMINATION: Extraocular muscles intact. Pupils equally round and reactive to light. Mucous membranes are moist. NECK: Is supple. There is no jugular venous distention (JVD). CARDIOVASCULAR: S1, S2, regular rate. No murmur, rub, and gallop. RESPIRATORY: Chest is clear to auscultation bilaterally. Bilateral equal air entry. ABDOMEN: Is soft, positive bowel sounds. Nontender. Is morbidly obese. EXTREMITIES: No clubbing or cyanosis. No rashes. The patient has a cast on the left leg. CENTRAL NERVOUS SYSTEM: No focal neurological deficit. She is awake, alert, oriented times three. SKIN: No rashes or ulcers. LABORATORY REVIEW: CBC showed a WBC of 10, hemoglobin 10.1, platelets of 344. BMP showed sodium 145, potassium 4.5, chloride 110, bicarbonate 22, BUN 38, creatinine 2.94, calcium is 8.7, phosphorus is 4.7, albumin is 2.5. IMAGING: A chest x-ray done today morning showed no acute infiltrate. CURRENT MEDICATIONS: The patient's current medications were all reviewed by me. There is no change in the medication at this time. ASSESSMENT: A 75-year-old female with past medical history of autosomal dominant polycystic kidney disease and chronic kidney disease stage IV, baseline creatinine around 2.1. The patient was admitted this time with fracture of the left femur. Nephrology service following the patient for management of acute kidney injury on chronic kidney disease stage IV. PLAN: 1. Acute kidney injury superimposed on chronic kidney disease stage IV. The patient's intravenous (IV) fluids have been on hold. She is getting oral hydration at this time. Her creatinine has been fluctuating at 2.9 for the last 3-4 days. I am going to start gentle hydration again for the next 24 hours. 2. Metabolic acidosis. The patient's serum bicarbonate level is stable at 22. Continue current dose of Bicitra. 3. Renovascular hypertension. Continue antihypertensive regimen at this time. Blood pressure is acceptable. I would not restart the angiotensin-converting enzyme (BOBBY) inhibitors until the kidney function improves. 4. Pseudomonas urinary tract infection (UTI). Continue current dose of ciprofloxacin. 5. Anemia on chronic kidney disease. The patient's hemoglobin is acceptable at 10.1, which is stable. No need of erythropoiesis-stimulating agent (ISABELLA) administration at this time.
[2016-03-28] MEDS ORDERED: SENNA 8.6 MG TAB (SENOKOT) PO PRN (18:30)
[2016-03-28] MEDS ORDERED: FLEET OIL RETENTION ENEMA PR PRN (18:30)
[2016-03-28] MEDS: BISACODYL 10 MG SUPP PR SCH (21:08)
[2016-03-28] MEDS: ATORVASTATIN 20 MG TAB PO SCH (21:08)
[2016-03-28] MEDS: ATENOLOL 50 MG TAB PO SCH (21:08)
[2016-03-29 00:07] LABS: SJOGREN'S ANTI SS-A <0.2 AI (0.0-0.9); SJOGREN'S ANTI SS-B <0.2 AI (0.0-0.9)
[2016-03-29] MEDS: CIPROFLOXACIN 250 MG TAB PO SCH (02:27)
[2016-03-29] MEDS: LEVOTHYROXINE 0.125 MG TAB (125 MCG) PO SCH (05:25)
[2016-03-29] MEDS: HEPARIN SOD (PORCINE) 5000 UNITS/ML VIAL SC SCH ×3 (05:26→22:03)
[2016-03-29 06:00] VITALS: BP 144/72
[2016-03-29] MEDS: buPROPion **XL** TABLET 150MG (WELLBUTRIN XL) PO SCH (09:35)
[2016-03-29] MEDS: amLODIPine 10 MG TAB PO SCH (09:35)
[2016-03-29] MEDS: BICITRA 30ML SOLN UDC PO SCH ×3 (09:35→22:02)
[2016-03-29] MEDS: SENOKOT S TAB PO SCH ×2 (09:36→22:03)
[2016-03-29] MEDS: ACETAMINOPHEN TAB 650MG DOSE (2X325MG) PO PRN ×2 (09:36→17:17)
[2016-03-29] MEDS: ALLOPURINOL 100 MG TAB PO SCH (09:36)
[2016-03-29] MEDS: CALCITRIOL 0.25 MCG CAP (S0169) PO SCH (09:36)
[2016-03-29] MEDS: **hydrALAZINE** 10 MG TAB PO SCH ×3 (09:36→22:02)
[2016-03-29] MEDS: NYSTATIN 100,000 UNITS/GM TOPICAL PWD 15 GM TOP SCH ×2 (09:37→22:03)
[2016-03-29] MEDS: BISACODYL 10 MG SUPP PR SCH ×2 (09:37→22:02)
[2016-03-29] MEDS: MIRALAX *UNIT DOSE* 17GM PACKET PO SCH (09:37)
[2016-03-29 13:05] LABS: MEAN CORPUSCULAR HEMOGLOBIN 30.7 pg (27.0-33.0); MEAN CORPUSCULAR HGB CONC 31.6 g/dl (32.0-36.5); MEAN CORPUSCULAR VOLUME 97.1 fl (80.0-96.0); RED CELL DISTRIBUTION WIDTH 14.4 % (11.5-14.5); WHITE BLOOD COUNT 10.3 K/mm3 (4.0-10.0)
--- NOTE | 2016-03-29 13:44 | IPNPDOC ---
Assessment/Plan Date Seen The patient was seen on 03/29/16. Problems Problems: (1) NAY (acute kidney injury) Status: Acute Problem Text: back to baseline GFR stable lytes corrected metabolic acidosis (2) UTI (urinary tract infection) Status: Acute Problem Text: 03/28 - Present on admission. She was initially started on ceftriaxone, however U/C grew>100,000 Pseudomonas and she was switched to ciprofloxacin. She completes her course of Cipro on the . 03/29 - Cipro stopped today. No urinary complaints at this time. (3) Fracture, femur, distal Status: Acute Response to Treatment: Stable Problem Text: 03/28 - Discussed with orthopedics. Surgical options such as needed replacement and internal fixation options. They recommended continuing management with full leg brace and bed rest for 6-8 weeks. They recommended trapeze over bed for patient to help with getting onto the bed vasquez. This is been installed. Patient family services is working on finding placement, as her group home care and requirements are likely more than the family would be able to manage. - Awaiting placement with group home 03/29 - Patient would like to try to go home with services rather than going into a jail. She is working with [facility] to figure out what options are available. Will leave management to ortho and [facility] with regards to care of her femur fracture. (4) Hypertension Status: Chronic Response to Treatment: Worse Problem Text: 03/28 - Hold ARB due to NAY -Continue amlodipine 10 mg daily - When necessary hydralazine for systolics over 160 03/29 - Currently stable. Continue current antihypertensive regimen. (5) Constipation Status: Chronic Response to Treatment: Improving Problem Text: 03/28 -Schedule stool softeners -Schedule senna -Daily MiraLAX -When necessary suppository -When necessary Fleet enema 03/29 - Patient had a BM yesterday and another small one this morning. She has not used any of the enemas yet. Advised nursing if patient still feels like she needs to have a BM but can't, to use the enema prn this afternoon. Will continue to monitor. Etiology is likely due to pain medication and lack of walking due to bedrest. (6) Anemia Status: Chronic Response to Treatment: Stable Problem Text: Recent GI bleed (see previous admission) - No further active bleeding. Hgb stable (7) Dysarthria Status: Resolved Response to Treatment: Stable Problem Text: No evidence of dysarthria on exam. No further recommendations by neurology. Normal imaging. (8) Hypothyroidism Status: Chronic Response to Treatment: Stable Problem Text: on Levothyroxine TSH high, but likely related to acute illness. Repeat once stable (9) Hyperlipidemia Status: Chronic (10) Costochondritis Status: Acute Response to Treatment: Improving Problem Text: Osteochondritis versus cartilage fracture from EMS lifting patient off the floor by her chest. Pain is tolerable. -Avoid NSAIDs due to renal function (11) Liver cyst Status: Chronic Problem Text: 2.7 cm cyst on liver - will need interval f/u as outpatient Plan / VTE VTE Prophylaxis Ordered?: Yes (SQ heparin) Subjective Review of Systems CC/HPI The patient is a 75-year-old female admitted with a reason for visit of Fx Femur Distal. Events since last encounter Patient seen at bedside this morning. She is resting comfortably. She has a trapeze bar attached to her bed. She states that she has been doing fairly well. Admits to some issues with constipation despite numerous bowel medications. She did have a BM yesterday and another small one this morning. No other acute complaints. Constitutional: Denies: Chills, Fever Pulmonary: Denies: Cough, Dyspnea Cardiovascular: Denies: Chest Pain Gastrointestinal: Reports: Constipation (BM yesterday and today.), Denies: Abdominal Pain, Diarrhea, Hematochezia, Melena, Nausea, Vomiting Genitourinary: Denies: Dysuria, Frequency Objective Physical Examination General Exam: Positive: Alert, Cooperative, No Acute Distress, Other (morbidly obese) Eye Exam: Positive: Conjunctiva & lids normal ENT Exam: Positive: Mucous membr. moist/pink Chest Exam: Positive: Clear to auscultation, Normal air movement, Negative: Rales, Rhonchi, Wheezing Heart Exam: Positive: Rate Normal, Regular Rhythm Abdomen Exam: Positive: Normal bowel sounds, Other (morbidly obese), Soft, Negative: Tenderness Extremity Exam: Positive: Normal pulses, Other (left leg brace in place), Negative: Edema Skin Exam: Positive: Nl turgor and temperature Neuro Exam: Positive: Other (speech is clearly improved. dysarthria is resolved at this point) Psych Exam: Positive: Oriented x 3 Vital Signs/I&O Vital Signs Date Time Temp Pulse Resp B/P Pulse Ox O2 Delivery O2 Flow Rate FiO2 03/29/16 09:36 144/72 03/29/16 09:35 76 03/29/16 06:00 98.2 18 95 Room Air I&O- Last 24 Hours up to 6 AM 03/29/16 06:00 Intake Total 2060 ml Balance 2060 ml Laboratory Data Labs 24H Laboratory Tests 2 03/29/16 12:34: Estimated Mean Plasma Glucose 100, Hemoglobin A1c 5.1 CBC/BMP Laboratory Tests 03/29/16 12:34 Red Blood Count 3.44 L, Mean Corpuscular Volume 97.1 H, Mean Corpuscular Hemoglobin 30.7, Mean Corpuscular Hemoglobin Concent 31.6 L, Red Cell Distribution Width 14.4 Microbiology Microbiology 03/19/16 Blood Culture - Final, Complete NO GROWTH AFTER 5 DAYS 03/19/16 Blood Culture - Final, Complete NO GROWTH AFTER 5 DAYS 03/19/16 Urine Culture - Final, Complete Pseudomonas Aeruginosa ZAY LOUIE DO Mar 29, 2016 13:44 Casey Johnson M.D. Mar 29, 2016 15:59 ZAY LOUIE DO Mar 29, 2016 13:44
[2016-03-29 13:51] LABS: ALBUMIN 2.5 GM/DL (3.2-5.2); ALBUMIN/GLOBULIN RATIO 0.89 (1.00-1.93); BILIRUBIN,TOTAL 0.2 MG/DL (0.2-1.0); CALCIUM LEVEL 8.8 MG/DL (8.8-10.2); CREATININE FOR GFR 2.97 MG/DL (0.55-1.02); GLOMERULAR FILTRATION RATE 16.5 (>39); POTASSIUM SERUM 4.3 MEQ/L (3.5-5.1); TOTAL PROTEIN 5.3 GM/DL (6.4-8.2)
--- NOTE | 2016-03-29 14:33 | IPN ---
DATE: 03/28/2016 SUBJECTIVE: Patient was seen and examined at the bedside today in the morning. Her family was also present at the bedside. Patient reports that she is feeling much better. She is tolerating the oral diet. Her renal function is stable. REVIEW OF SYSTEMS: Patient denies any fever, chills, rigors, headache, nausea, vomiting, chest pain, shortness of breath, pain in abdomen, constipation, or diarrhea. Rest of review of systems is negative. OBJECTIVE: VITAL SIGNS: Temperature 98.7 degrees Fahrenheit, blood pressure 137/69, pulse 78, respiratory rate 18, saturating at 97% on room air. INTAKE/OUTPUT: There is no urine output recorded. Weight in the bed scale is 129.7 kg. 10 kg difference in the weight as compared with yesterday is because of the new change in the bedding, I do not believe patient has gained 10 kg in the last 24 hours. PHYSICAL EXAMINATION: GENERAL: Patient is awake, alert, oriented times three, laying in bed, no apparent distress. HEAD and NECK: Extraocular muscles intact. Pupils equally round and reactive to light. Neck is supple. Mucous membranes are moist. CARDIOVASCULAR: S1, S2, regular rate. No murmur, rub, or gallop. RESPIRATORY: Chest is clear to auscultation bilaterally. Bilateral equal air entry. ABDOMEN: Soft, obese, positive bowel sounds, nontender. No organomegaly. EXTREMITIES: No clubbing or cyanosis. No rashes. Patient has a cast around the left knee. CENTRAL NERVOUS SYSTEM (MANUAL TRAINING TEACHER): No focal neurological deficit. Power is 5/5 in all extremities. SKIN: No rashes. PSYCHIATRIC: Normal mood and affect. LABORATORY REVIEW: CBC showed WBC 10, hemoglobin 10.1, platelets 344. BMP showed sodium 145, potassium 4.5, chloride 110, bicarbonate 22, BUN 38, creatinine 2.94. All of these labs are from yesterday. There is no labs available from today. CURRENT MEDICATIONS: Patient's current medications were all reviewed by me. There is no change in the medications done today as compared with yesterday. ASSESSMENT: 75-year-old female with past medical history of chronic kidney disease stage IV secondary to autosomal dominant polycystic kidney disease, nephrology service following the patient for management of acute kidney injury on chronic kidney disease (CKD) stage IV. PLAN: 1. Acute kidney injury superimposed on chronic kidney disease stage IV. Renal function has been stable. Intravenous (IV) fluids are on hold. Today's basic metabolic panel (BMP) is not available. Rest of the recommendations after lab reviews tomorrow. 2. Metabolic acidosis. Continue current dose of Bicitra. 3. Renovascular hypertension. Continue current dose of antihypertensive medications. Avoid angiotensin-converting enzyme (BOBBY) inhibitors at this time.
[2016-03-29] MEDS: ATORVASTATIN 20 MG TAB PO SCH (22:02)
[2016-03-29] MEDS: ATENOLOL 50 MG TAB PO SCH (22:03)
[2016-03-30] MEDS: HEPARIN SOD (PORCINE) 5000 UNITS/ML VIAL SC SCH ×3 (05:11→21:32)
[2016-03-30] MEDS: LEVOTHYROXINE 0.15 MG TAB (150 MCG) PO SCH (05:11)
[2016-03-30 06:00] VITALS: BP 138/64
[2016-03-30 07:28] LABS: MEAN CORPUSCULAR HEMOGLOBIN 31.2 pg (27.0-33.0); MEAN CORPUSCULAR HGB CONC 32.5 g/dl (32.0-36.5); RED CELL DISTRIBUTION WIDTH 13.6 % (11.5-14.5); WHITE BLOOD COUNT 9.2 K/mm3 (4.0-10.0)
[2016-03-30 07:51] LABS: ALBUMIN 2.6 GM/DL (3.2-5.2); ALBUMIN/GLOBULIN RATIO 0.79 (1.00-1.93); BILIRUBIN,TOTAL 0.2 MG/DL (0.2-1.0); CREATININE FOR GFR 2.81 MG/DL (0.55-1.02); GLOMERULAR FILTRATION RATE 17.6 (>39); POTASSIUM SERUM 4.1 MEQ/L (3.5-5.1); TOTAL PROTEIN 5.9 GM/DL (6.4-8.2)
[2016-03-30] MEDS: CALCITRIOL 0.25 MCG CAP (S0169) PO SCH (09:00)
[2016-03-30] MEDS: NYSTATIN 100,000 UNITS/GM TOPICAL PWD 15 GM TOP SCH ×2 (09:00→21:34)
[2016-03-30] MEDS: MIRALAX *UNIT DOSE* 17GM PACKET PO SCH (09:23)
[2016-03-30] MEDS: BICITRA 30ML SOLN UDC PO SCH ×3 (09:23→21:31)
[2016-03-30] MEDS: SENOKOT S TAB PO SCH ×2 (09:24→21:33)
[2016-03-30] MEDS: amLODIPine 10 MG TAB PO SCH (09:24)
[2016-03-30] MEDS: buPROPion **XL** TABLET 150MG (WELLBUTRIN XL) PO SCH (09:25)
[2016-03-30] MEDS: **hydrALAZINE** 10 MG TAB PO SCH ×3 (09:25→21:33)
[2016-03-30] MEDS: ALLOPURINOL 100 MG TAB PO SCH (09:26)
[2016-03-30] MEDS: BISACODYL 10 MG SUPP PR SCH ×2 (09:26→21:34)
--- NOTE | 2016-03-30 11:42 | IPN ---
DATE: 03/19/2016 SUBJECTIVE: Patient was seen and examined at the bedside today. She is lying in the bed. She does not have any acute complaints today. I do not have any laboratories from this morning. REVIEW OF SYSTEMS: Patient denies any fever, chills, rigors, headache, nausea, vomiting, chest pain, shortness of breath, pain in abdomen, constipation, or diarrhea. Rest of review of systems is negative. OBJECTIVE: VITAL SIGNS: Temperature 98.2 degrees Fahrenheit, blood pressure 144/72, pulse 76, respiratory rate 18, saturating at 95% on room air. INTAKE/OUTPUT: Not recorded. PHYSICAL EXAMINATION: GENERAL: Patient is awake, alert, oriented times three, laying in bed, no apparent distress. HEAD and NECK: Extraocular muscles intact. Pupils equally round and reactive to light. Neck is supple. There is no jugular venous distention (JVD). Mucous membranes are moist. CARDIOVASCULAR: S1, S2, regular rate. No murmur, rub, or gallop. RESPIRATORY: Chest is clear to auscultation bilaterally. Bilateral equal air entry. No rales or rhonchi. ABDOMEN: Soft, obese, positive bowel sounds, nontender. No organomegaly. EXTREMITIES: No clubbing or cyanosis. The patient is wearing a brace on the left leg. CENTRAL NERVOUS SYSTEM (BASE PLY HAND): No focal neurological deficit. She is alert, awake, oriented times three. SKIN: No rashes or ulcers. LABORATORY REVIEW: CBC showed WBC 10, hemoglobin 10.1 (that was two days ago). There is no BMP available from today. CURRENT MEDICATIONS: Patient's current medications were all reviewed by me. Her ciprofloxacin has been stopped today, she has finished the course. There is no other change in the medication regimen at this time. ASSESSMENT AND PLAN: 1. Acute kidney injury superimposed on chronic kidney disease stage IV. Her creatinine has been fluctuating at around 2.9, which is stable at this moment. No need of intravenous fluid administration at this time. Continue to avoid BOBBY inhibitors. 2. Renovascular hypertension. Her hypertension is basically because of her polycystic kidney disease. Continue current antihypertensive regimen. Angiotensin-converting enzyme (BOBBY) inhibitors are on hold because of chronic kidney disease stage IV at this moment. 3. Metabolic acidosis. Continue current dose of Bicitra 10 mL by mouth twice a day. Latest bicarbonate level two days ago was 22. 4. Pseudomonas urinary tract infection (UTI). The patient has finished one week course of ciprofloxacin today. No need of further antibiotics at this time. The patient's renal function has stabilized around her baseline. Her blood pressure is acceptable at this time. She has a left femur fracture. She is awaiting placement. Nephrology service will sign off at this time. Please call nephrology service as needed for any help.
[2016-03-30] MEDS: ACETAMINOPHEN TAB 650MG DOSE (2X325MG) PO PRN (14:32)
[2016-03-30] MEDS: ATORVASTATIN 20 MG TAB PO SCH (21:32)
[2016-03-30] MEDS: ATENOLOL 50 MG TAB PO SCH (21:33)
[2016-03-30 22:00] VITALS: BP 141/67
[2016-03-31] MEDS: HEPARIN SOD (PORCINE) 5000 UNITS/ML VIAL SC SCH ×3 (05:37→20:46)
[2016-03-31] MEDS: LEVOTHYROXINE 0.125 MG TAB (125 MCG) PO SCH (05:37)
[2016-03-31 06:00] VITALS: BP 162/70
[2016-03-31 06:44] LABS: MEAN CORPUSCULAR HEMOGLOBIN 29.8 pg (27.0-33.0); MEAN CORPUSCULAR HGB CONC 30.6 g/dl (32.0-36.5); MEAN CORPUSCULAR VOLUME 97.3 fl (80.0-96.0); RED CELL DISTRIBUTION WIDTH 14.4 % (11.5-14.5); WHITE BLOOD COUNT 8.9 K/mm3 (4.0-10.0)
[2016-03-31 06:57] LABS: ALBUMIN 2.4 GM/DL (3.2-5.2); ALBUMIN/GLOBULIN RATIO 0.69 (1.00-1.93); BILIRUBIN,TOTAL 0.3 MG/DL (0.2-1.0); CALCIUM LEVEL 8.9 MG/DL (8.8-10.2); CREATININE FOR GFR 2.94 MG/DL (0.55-1.02); GLOMERULAR FILTRATION RATE 16.7 (>39); POTASSIUM SERUM 4.4 MEQ/L (3.5-5.1); TOTAL PROTEIN 5.9 GM/DL (6.4-8.2)
[2016-03-31] MEDS: BISACODYL 10 MG SUPP PR SCH ×2 (09:00→20:47)
[2016-03-31] MEDS: NYSTATIN 100,000 UNITS/GM TOPICAL PWD 15 GM TOP SCH ×2 (09:00→20:47)
[2016-03-31] MEDS: **hydrALAZINE** 10 MG TAB PO SCH ×3 (10:39→20:45)
[2016-03-31] MEDS: ALLOPURINOL 100 MG TAB PO SCH (10:39)
[2016-03-31] MEDS: CALCITRIOL 0.25 MCG CAP (S0169) PO SCH (10:39)
[2016-03-31] MEDS: SENOKOT S TAB PO SCH ×2 (10:39→20:44)
[2016-03-31] MEDS: buPROPion **XL** TABLET 150MG (WELLBUTRIN XL) PO SCH (10:39)
[2016-03-31] MEDS: BICITRA 30ML SOLN UDC PO SCH ×3 (10:40→20:45)
[2016-03-31] MEDS: MIRALAX *UNIT DOSE* 17GM PACKET PO SCH (10:40)
[2016-03-31] MEDS: amLODIPine 10 MG TAB PO SCH (10:40)
[2016-03-31] MEDS: ACETAMINOPHEN TAB 650MG DOSE (2X325MG) PO PRN ×2 (13:46→22:17)
[2016-03-31 14:00] VITALS: BP 135/86
[2016-03-31] MEDS: ATENOLOL 50 MG TAB PO SCH (20:46)
[2016-03-31] MEDS: ATORVASTATIN 20 MG TAB PO SCH (20:50)
[2016-03-31 22:00] VITALS: BP 156/73
[2016-04-01 06:00] VITALS: BP 162/70
[2016-04-01] MEDS: LEVOTHYROXINE 0.15 MG TAB (150 MCG) PO SCH (06:04)
[2016-04-01] MEDS: HEPARIN SOD (PORCINE) 5000 UNITS/ML VIAL SC SCH ×3 (06:04→22:10)
[2016-04-01 06:53] LABS: MEAN CORPUSCULAR HEMOGLOBIN 31.7 pg (27.0-33.0); MEAN CORPUSCULAR HGB CONC 32.9 g/dl (32.0-36.5); MEAN CORPUSCULAR VOLUME 96.4 fl (80.0-96.0); RED CELL DISTRIBUTION WIDTH 13.6 % (11.5-14.5); WHITE BLOOD COUNT 6.4 K/mm3 (4.0-10.0)
[2016-04-01 07:12] LABS: ALBUMIN 2.5 GM/DL (3.2-5.2); ALBUMIN/GLOBULIN RATIO 0.89 (1.00-1.93); BILIRUBIN,TOTAL 0.3 MG/DL (0.2-1.0); CALCIUM LEVEL 8.7 MG/DL (8.8-10.2); CREATININE FOR GFR 3.01 MG/DL (0.55-1.02); GLOMERULAR FILTRATION RATE 16.2 (>39); POTASSIUM SERUM 4.5 MEQ/L (3.5-5.1); TOTAL PROTEIN 5.3 GM/DL (6.4-8.2)
[2016-04-01] MEDS: MIRALAX *UNIT DOSE* 17GM PACKET PO SCH (09:00)
[2016-04-01] MEDS: BISACODYL 10 MG SUPP PR SCH ×2 (09:00→21:00)
[2016-04-01] MEDS: NYSTATIN 100,000 UNITS/GM TOPICAL PWD 15 GM TOP SCH ×2 (09:00→22:10)
[2016-04-01] MEDS: CALCITRIOL 0.25 MCG CAP (S0169) PO SCH (11:15)
[2016-04-01] MEDS: BICITRA 30ML SOLN UDC PO SCH ×3 (11:15→22:06)
[2016-04-01] MEDS: buPROPion **XL** TABLET 150MG (WELLBUTRIN XL) PO SCH (11:15)
[2016-04-01] MEDS: **hydrALAZINE** 10 MG TAB PO SCH ×3 (11:15→22:08)
[2016-04-01] MEDS: ALLOPURINOL 100 MG TAB PO SCH (11:16)
[2016-04-01] MEDS: LORazepam 0.5 MG TAB PO PRN (11:16)
[2016-04-01] MEDS: SENOKOT S TAB PO SCH ×2 (11:16→22:09)
[2016-04-01] MEDS: amLODIPine 10 MG TAB PO SCH (11:16)
[2016-04-01 14:00] VITALS: BP 136/61
[2016-04-01 22:00] VITALS: BP 137/63
[2016-04-01] MEDS: ATORVASTATIN 20 MG TAB PO SCH (22:08)
[2016-04-01] MEDS: ATENOLOL 50 MG TAB PO SCH (22:09)
[2016-04-01] MEDS: ACETAMINOPHEN TAB 650MG DOSE (2X325MG) PO PRN (22:29)
[2016-04-02] MEDS ORDERED: PERCOCET 5MG/325MG TAB PO ONE (00:45)
[2016-04-02 06:00] VITALS: BP 144/63
[2016-04-02] MEDS: HEPARIN SOD (PORCINE) 5000 UNITS/ML VIAL SC SCH ×3 (06:14→21:21)
[2016-04-02] MEDS: LEVOTHYROXINE 0.125 MG TAB (125 MCG) PO SCH (06:14)
[2016-04-02 06:39] LABS: MEAN CORPUSCULAR HEMOGLOBIN 31.2 pg (27.0-33.0); MEAN CORPUSCULAR HGB CONC 32.1 g/dl (32.0-36.5); MEAN CORPUSCULAR VOLUME 97.1 fl (80.0-96.0); RED CELL DISTRIBUTION WIDTH 13.7 % (11.5-14.5); WHITE BLOOD COUNT 7.3 K/mm3 (4.0-10.0)
[2016-04-02 06:53] LABS: ALBUMIN 2.4 GM/DL (3.2-5.2); ALBUMIN/GLOBULIN RATIO 0.71 (1.00-1.93); BILIRUBIN,TOTAL 0.2 MG/DL (0.2-1.0); CALCIUM LEVEL 8.7 MG/DL (8.8-10.2); CREATININE FOR GFR 2.88 MG/DL (0.55-1.02); GLOMERULAR FILTRATION RATE 17.1 (>39); POTASSIUM SERUM 4.1 MEQ/L (3.5-5.1); TOTAL PROTEIN 5.8 GM/DL (6.4-8.2)
[2016-04-02] MEDS: BICITRA 30ML SOLN UDC PO SCH ×3 (08:57→21:20)
[2016-04-02] MEDS: buPROPion **XL** TABLET 150MG (WELLBUTRIN XL) PO SCH (08:57)
[2016-04-02] MEDS: MIRALAX *UNIT DOSE* 17GM PACKET PO SCH (08:57)
[2016-04-02] MEDS: SENOKOT S TAB PO SCH ×2 (08:58→21:00)
[2016-04-02] MEDS: ALLOPURINOL 100 MG TAB PO SCH (08:58)
[2016-04-02] MEDS: **hydrALAZINE** 10 MG TAB PO SCH ×3 (08:59→21:22)
[2016-04-02] MEDS: amLODIPine 10 MG TAB PO SCH (08:59)
[2016-04-02] MEDS: BISACODYL 10 MG SUPP PR SCH ×2 (09:00→21:00)
[2016-04-02] MEDS: CALCITRIOL 0.25 MCG CAP (S0169) PO SCH (09:00)
[2016-04-02] MEDS: NYSTATIN 100,000 UNITS/GM TOPICAL PWD 15 GM TOP SCH ×2 (09:02→21:23)
[2016-04-02] MEDS: ACETAMINOPHEN TAB 650MG DOSE (2X325MG) PO PRN ×2 (14:31→21:20)
[2016-04-02 16:00] VITALS: BP 173/84
[2016-04-02] MEDS: ATORVASTATIN 20 MG TAB PO SCH (21:21)
[2016-04-02] MEDS: ATENOLOL 50 MG TAB PO SCH (21:22)
[2016-04-02 22:00] VITALS: BP 149/69
[2016-04-03] MEDS: ACETAMINOPHEN TAB 650MG DOSE (2X325MG) PO PRN ×2 (02:01→06:08)
[2016-04-03 06:00] VITALS: BP 137/66
[2016-04-03] MEDS: HEPARIN SOD (PORCINE) 5000 UNITS/ML VIAL SC SCH ×3 (06:08→21:25)
[2016-04-03] MEDS: LEVOTHYROXINE 0.15 MG TAB (150 MCG) PO SCH (06:08)
[2016-04-03 06:38] LABS: MEAN CORPUSCULAR HEMOGLOBIN 30.6 pg (27.0-33.0); MEAN CORPUSCULAR HGB CONC 31.3 g/dl (32.0-36.5); MEAN CORPUSCULAR VOLUME 97.7 fl (80.0-96.0); RED CELL DISTRIBUTION WIDTH 13.5 % (11.5-14.5); WHITE BLOOD COUNT 6.6 K/mm3 (4.0-10.0)
[2016-04-03 06:43] LABS: ALBUMIN 2.5 GM/DL (3.2-5.2); ALBUMIN/GLOBULIN RATIO 0.74 (1.00-1.93); BILIRUBIN,TOTAL 0.4 MG/DL (0.2-1.0); CALCIUM LEVEL 8.6 MG/DL (8.8-10.2); CREATININE FOR GFR 2.75 MG/DL (0.55-1.02); TOTAL PROTEIN 5.9 GM/DL (6.4-8.2)
[2016-04-03] MEDS: MIRALAX *UNIT DOSE* 17GM PACKET PO SCH (09:00)
[2016-04-03] MEDS: SENOKOT S TAB PO SCH ×2 (09:00→21:24)
[2016-04-03] MEDS: BISACODYL 10 MG SUPP PR SCH ×2 (09:00→21:26)
[2016-04-03] MEDS: BICITRA 30ML SOLN UDC PO SCH ×3 (09:37→21:25)
[2016-04-03] MEDS: buPROPion **XL** TABLET 150MG (WELLBUTRIN XL) PO SCH (09:37)
[2016-04-03] MEDS: ALLOPURINOL 100 MG TAB PO SCH (09:38)
[2016-04-03] MEDS: CALCITRIOL 0.25 MCG CAP (S0169) PO SCH (09:38)
[2016-04-03] MEDS: amLODIPine 10 MG TAB PO SCH (09:38)
[2016-04-03] MEDS: **hydrALAZINE** 10 MG TAB PO SCH ×3 (09:39→21:25)
[2016-04-03] MEDS: NYSTATIN 100,000 UNITS/GM TOPICAL PWD 15 GM TOP SCH ×2 (09:40→21:00)
--- NOTE | 2016-04-03 11:02 | IPNPDOC ---
Assessment/Plan Date Seen The patient was seen on 04/03/16. Problems Problems: (1) Fracture, femur, distal Status: Acute Response to Treatment: Stable Problem Text: Plan is now for patient to go home with hospital bed, trapeze, and over-bed table. She'll follow-up with orthopedics in 4 weeks. Eliquis 10 mg twice a day per orthopedics. -Plan for discharge home with home PT and nursing -Durable medical goods for home care; hospital bed, trapeze, over-bed table -Discharge on Eliquis 10 mg BID (2) NAY (acute kidney injury) Status: Resolved Problem Text: Back to baseline, but has stage IV CK. -Change allopurinol to Uloric -Continue to hold losartan -Patient to follow-up with nephrology (3) Hypertension Status: Chronic Response to Treatment: Worse Problem Text: 03/28 - Hold ARB due to NAY -Continue amlodipine 10 mg daily - When necessary hydralazine for systolics over 160 03/29 - Currently stable. Continue current antihypertensive regimen. (4) Constipation Status: Chronic Response to Treatment: Improving Problem Text: 03/28 -Schedule stool softeners -Schedule senna -Daily MiraLAX -When necessary suppository -When necessary Fleet enema 03/29 - Patient had a BM yesterday and another small one this morning. She has not used any of the enemas yet. Advised nursing if patient still feels like she needs to have a BM but can't, to use the enema prn this afternoon. Will continue to monitor. Etiology is likely due to pain medication and lack of walking due to bedrest. (5) Anemia Status: Chronic Response to Treatment: Stable Problem Text: Recent GI bleed (see previous admission) - No further active bleeding. Hgb stable (6) Hypothyroidism Status: Chronic Response to Treatment: Stable Problem Text: on Levothyroxine TSH high, but likely related to acute illness. Repeat once stable (7) Hyperlipidemia Status: Chronic (8) Costochondritis Status: Acute Response to Treatment: Improving Problem Text: Osteochondritis versus cartilage fracture from EMS lifting patient off the floor by her chest. Pain is tolerable. -Avoid NSAIDs due to renal function (9) Liver cyst Status: Chronic Problem Text: 2.7 cm cyst on liver - will need interval f/u as outpatient (10) UTI (urinary tract infection) Status: Resolved Problem Text: 03/28 - Present on admission. She was initially started on ceftriaxone, however U/C grew>100,000 Pseudomonas and she was switched to ciprofloxacin. She completes her course of Cipro on the . 03/29 - Cipro stopped today. No urinary complaints at this time. (11) Dysarthria Status: Resolved Response to Treatment: Stable Problem Text: No evidence of dysarthria on exam. No further recommendations by neurology. Normal imaging. Plan / VTE VTE Prophylaxis Ordered?: Yes (SQ heparin) Disposition Discharge planning for today in-process Subjective Review of Systems CC/HPI The patient is a 75-year-old female admitted with a reason for visit of Fx Femur Distal. Events since last encounter Patient has no complaints today. Eager for discharge. Constitutional: Denies: Chills, Fever Skin: Denies: Rash Pulmonary: Denies: Cough, Dyspnea Cardiovascular: Denies: Chest Pain, Palpitations Gastrointestinal: Denies: Abdominal Pain, Constipation, Diarrhea, Nausea, Vomiting Other systems 10 point review systems is otherwise negative Objective Physical Examination General Exam: Positive: Alert, Cooperative, No Acute Distress, Other (morbidly obese) Eye Exam: Positive: Conjunctiva & lids normal ENT Exam: Positive: Mucous membr. moist/pink Chest Exam: Positive: Clear to auscultation, Normal air movement, Negative: Rales, Rhonchi, Wheezing Heart Exam: Positive: Rate Normal, Regular Rhythm Abdomen Exam: Positive: Normal bowel sounds, Other (morbidly obese), Soft, Negative: Tenderness Extremity Exam: Positive: Normal pulses, Other (left leg brace in place), Negative: Edema Skin Exam: Positive: Nl turgor and temperature Neuro Exam: Positive: Other (speech is clearly improved. dysarthria is resolved at this point) Psych Exam: Positive: Oriented x 3 Vital Signs/I&O Vital Signs Date Time Temp Pulse Resp B/P Pulse Ox O2 Delivery O2 Flow Rate FiO2 04/03/16 09:39 137/66 04/03/16 09:38 66 04/03/16 06:00 97.4 18 94 Room Air I&O- Last 24 Hours up to 6 AM 04/03/16 06:00 Intake Total 1500 ml Balance 1500 ml Laboratory Data Labs 24H Laboratory Tests 2 04/03/16 06:02: Blood Urea Nitrogen 44H, Creatinine 2.75H, Sodium Level 144, Potassium Level 4.0 , Chloride Level 109H, Carbon Dioxide Level 23, Calcium Level 8.6L, Aspartate Amino Transf (AST/SGOT) 10L, Alanine Aminotransferase (ALT/SGPT) 14, Alkaline Phosphatase 107, Total Bilirubin 0.4#, Total Protein 5.9L, Albumin 2.5L, Albumin /Globulin Ratio 0.74L, Anion Gap 12, Glomerular Filtration Rate 18.0L CBC/BMP Laboratory Tests 04/03/16 06:02 Calcium Level 8.6 L, Aspartate Amino Transf (AST/SGOT) 10 L, Alanine Aminotransferase (ALT/SGPT) 14, Alkaline Phosphatase 107, Total Bilirubin 0.4 # , Total Protein 5.9 L, Albumin 2.5 L, Red Blood Count 3.37 L, Mean Corpuscular Volume 97.7 H, Mean Corpuscular Hemoglobin 30.6, Mean Corpuscular Hemoglobin Concent 31.3 L, Red Cell Distribution Width 13.5 LINDA CUNNINGHAM MD Apr 03, 2016 11:02
[2016-04-03] MEDS ORDERED: FEBU40TA PO (11:33)
--- NOTE | 2016-04-03 11:36 | DS.PDOC ---
Discharge Summary Date Of Admission Mar 19, 2016 at 15:29 Date of Discharge 04/03/2016 Discharge Summary PRIMARY CARE PHYSICIAN: ATTENDING TODAY: Linda Cunningham M.D. SPECIALIST/CONSULTATIONS INVOLVED DURING STAY: Orthopedics, nephrology PROCEDURES PERFORMED DURING STAY: PICC line COMPLICATIONS/CHIEF COMPLAINT: Fx Femur Distal ADMISSION DIAGNOSES: 1. Distal femur fracture - nonoperable 2. Polycystic kidney disease 3. Stage IV CKD 4. Morbid obesity 5. GERD 6. Gout 7. Dyslipidemia 8. Hypertension 9. Hypothyroidism DISCHARGE DIAGNOSES: 1. Distal femur fracture - nonoperable 2. Bedbound status 3. Polycystic kidney disease 4. NAY on Stage IV CKD 5. UTI status post ciprofloxacin 6. Morbid obesity 7. GERD 8. Gout 9. Dyslipidemia 10. Hypertension 11. Hypothyroidism HISTORY OF PRESENT ILLNESS: On the day of discharge, the patient felt well, pain was controlled, and she is eating, voiding, and stooling. She has no complains or concerns today. She is here to go home. She plans to follow up with Irena Armenta. HOSPITAL COURSE: Patient was admitted 03/19/2016 with a left, nondisplaced, distal femur fracture. She was evaluated by orthopedics, and not felt to be a surgical candidate. Her leg was stabilized with a full leg brace, and has been placed on strict bedrest. During her stay she developed altered mental status, for which she was worked up for possible PE and CVA. She was not found to have any evidence of clot or acute infarct. She was treated for UTI with ciprofloxacin, and had no symptoms of discharge. Home hospital bed, overhead trapeze, and over- bed table were prescribed for in-home care. She was discharged with home services, and plan to follow-up with orthopedics in 4 weeks. It was recommended that she monitor her blood pressure at home, and follow with her PCP by phone or through a home visit within the next week. DISCHARGE MEDICATIONS: Please see below. ALLERGIES: Please see below. PHYSICAL EXAMINATION ON DISCHARGE: VITAL SIGNS: Please see below. GENERAL: Alert, comfortable, no acute distress HEENT: Sclerae clear, moist mucous membranes NECK: no thyromegaly, supple, increased diameter CARDIOVASCULAR EXAMINATION: Regular rate and rhythm, S1, S2, no murmurs, no rubs , no gallops RESPIRATORY EXAMINATION: Clear bilaterally to auscultation, no wheezes, no rales , no rhonchi, normal work of breathing ABDOMINAL EXAMINATION: Obese, soft, nontender, nondistended EXTREMITIES: No edema, 2+ peripheral pulses bilaterally SKIN: No rashes NEUROLOGICAL EXAMINATION: Alert and oriented 3 PSYCHIATRIC EXAMINATION: Normal mood and affect LABORATORY DATA: Please see below. IMAGING: Listed in order of study Vascular ultrasound: no DVT of left lower extremity Tib-fib x-ray: No acute fracture dislocation of the tibia or fibula Pelvis x-ray: No acute fracture or dislocation Hip x-ray: Mild degenerative changes, no fracture dislocation L Knee x-ray: Mild diffuse spurring, joint effusion, nondisplaced fracture of the distal femur Chest x-ray: No infiltrate, mild bibasilar fibrotic atelectatic change, no cardiomegaly Foot x-ray: Moderate plantar calcaneal spur, small spurring with an anterior proximal foot, no visualized acute fracture or dislocation CT head: Age-appropriate cerebellar and cerebral atrophy, mild chronic microvascular disease, no acute intercranial pathology CT abdomen and pelvis w/o: Polycystic kidney disease bilaterally, colonic distention without pneumatosis, moderate diffuse retained colonic stool, sigmoid diverticulosis, 2.7 cm cyst or cystic lesion within the posterior segment of the right; interval follow-up recommended Brain MRI: Old right cerebellar lacunar infarct, small vessel ischemic disease, mild volume loss Repeat left knee x-ray: Nondisplaced fracture involving the superior aspect of the patella cannot be excluded, continued evidence of distal femoral fracture VTE Prophylaxis ordered?: Yes, discharged on Eliquis DISCHARGE CONDITION: Stable and safe for home management DISPOSITION: Home with home services ACTIVITY: Strict bedrest per orthopedics DIET: Heart healthy diet; low salt ITEMS TO FOLLOWUP ON OUTPATIENT: 1.Patient may benefit from discussion with a dietitian familiar with severe, chronic illness relating to chronic kidney disease. Would recommend someone with significant inpatient experience. 2. Patient to call with home blood pressures; may need to add an alternative therapy, as losartan was held at discharge per renal recommendations 3. Patient will need follow-up on her liver lesion DISCHARGE PLAN AND INSTRUCTIONS: 1. Strict bed rest; follow-up with orthopedics in 4 weeks; call your PCP to discuss possible home visit versus telephone encounter 2. Home nursing to do skin check once weekly 3. Physical therapy to work with the patient twice weekly 4. Hypertensive medications changed during inpatient admission due to NAY on CKD ; recommended follow-up with nephrology; patient to monitor home blood pressures ; nephrology recommended holding ARB, however patient may need to add another agent. 5. Changed allopurinol to Uloric due to underlying stage IV CKD TIME SPENT ON DISCHARGE: Greater than 30 minutes. Linda Cunningham MD Vital Signs/I&Os Vital Signs Date Time Temp Pulse Resp B/P Pulse Ox O2 Delivery O2 Flow Rate FiO2 04/03/16 09:39 137/66 04/03/16 09:38 66 04/03/16 06:00 97.4 18 94 Room Air I&O- Last 24 Hours up to 6 AM 04/03/16 06:00 Intake Total 1500 ml Balance 1500 ml Laboratory Data Labs 24H Laboratory Tests 2 04/03/16 06:02: Blood Urea Nitrogen 44H, Creatinine 2.75H, Sodium Level 144, Potassium Level 4.0 , Chloride Level 109H, Carbon Dioxide Level 23, Calcium Level 8.6L, Aspartate Amino Transf (AST/SGOT) 10L, Alanine Aminotransferase (ALT/SGPT) 14, Alkaline Phosphatase 107, Total Bilirubin 0.4#, Total Protein 5.9L, Albumin 2.5L, Albumin /Globulin Ratio 0.74L, Anion Gap 12, Glomerular Filtration Rate 18.0L CBC/BMP Laboratory Tests 04/03/16 06:02 Calcium Level 8.6 L, Aspartate Amino Transf (AST/SGOT) 10 L, Alanine Aminotransferase (ALT/SGPT) 14, Alkaline Phosphatase 107, Total Bilirubin 0.4 # , Total Protein 5.9 L, Albumin 2.5 L, Red Blood Count 3.37 L, Mean Corpuscular Volume 97.7 H, Mean Corpuscular Hemoglobin 30.6, Mean Corpuscular Hemoglobin Concent 31.3 L, Red Cell Distribution Width 13.5 Medications Scheduled (Nasacort Allergy 24Hr) 55 Mcg/Act Spr 2 SPRAYS NA DAILY Amitriptyline HCl (Amitriptyline HCl) 10 Mg Tab 30 MG PO QHS Apixaban Base (Eliquis) 5 Mg Tab 10 MG PO BID Z74.01 - bedbound status Atenolol (Atenolol) 100 Mg Tab 100 MG PO QHS Bupropion HCl (Bupropion HCl Xl) 300 Mg Tab 300 MG PO DAILY Calcitriol (Calcitriol) 0.25 Mcg Cap 0.25 MCG PO DAILY Esomeprazole Magnesium Trihydr (Nexium) 40 Mg Cap 40 MG PO BID Febuxostat (Uloric) 40 Mg Tab 40 MG PO DAILY Fexofenadine Hydrochloride (Mali Allergy) 180 Mg Tab 180 MG PO DAILY Levothyroxine Sodium (Synthroid) 150 Mcg Tab 150 MCG PO Q2D QHS: ALTERNATES WITH 125MCG TAB - SEE COMMENTS Multivitamins *[facility] STOCKED* (Thera M Plus *[facility] STOCKED*) 1 Tab Tab 1 TAB PO QHS Simvastatin - High Dose (Simvastatin) 40 Mg Tab 40 MG PO QHS Allergies Coded Allergies: Contrast Media (Unverified Allergy, Unknown, 09/06/15) Iodine (Unverified Allergy, Unknown, 09/06/15) LINDA CUNNINGHAM MD Apr 03, 2016 11:36
[2016-04-03] MEDS ORDERED: ELIQ5TAB PO (12:10)
[2016-04-03 14:00] VITALS: BP 141/65
[2016-04-03 17:00] VITALS: BP 154/80
[2016-04-03] MEDS: ATORVASTATIN 20 MG TAB PO SCH (21:24)
[2016-04-03] MEDS: ATENOLOL 50 MG TAB PO SCH (21:24)
[2016-04-03 22:00] VITALS: BP 142/63
[2016-04-04] MEDS: ACETAMINOPHEN TAB 650MG DOSE (2X325MG) PO PRN (03:14)
[2016-04-04 06:00] VITALS: BP 141/63
[2016-04-04] MEDS: LEVOTHYROXINE 0.125 MG TAB (125 MCG) PO SCH (06:07)
[2016-04-04] MEDS: HEPARIN SOD (PORCINE) 5000 UNITS/ML VIAL SC SCH (06:08)
[2016-04-04 06:52] LABS: MEAN CORPUSCULAR HGB CONC 31.2 g/dl (32.0-36.5); MEAN CORPUSCULAR VOLUME 99.5 fl (80.0-96.0); RED CELL DISTRIBUTION WIDTH 14.2 % (11.5-14.5)
[2016-04-04 06:59] LABS: ALBUMIN 2.6 GM/DL (3.2-5.2); ALBUMIN/GLOBULIN RATIO 0.72 (1.00-1.93); BILIRUBIN,TOTAL 0.3 MG/DL (0.2-1.0); CALCIUM LEVEL 9.2 MG/DL (8.8-10.2); CREATININE FOR GFR 2.76 MG/DL (0.55-1.02); GLOMERULAR FILTRATION RATE 17.9 (>39); POTASSIUM SERUM 4.2 MEQ/L (3.5-5.1); TOTAL PROTEIN 6.2 GM/DL (6.4-8.2)
[2016-04-04] MEDS: SENOKOT S TAB PO SCH (09:00)
[2016-04-04] MEDS: MIRALAX *UNIT DOSE* 17GM PACKET PO SCH (09:00)
[2016-04-04] MEDS: BICITRA 30ML SOLN UDC PO SCH (09:00)
[2016-04-04] MEDS: NYSTATIN 100,000 UNITS/GM TOPICAL PWD 15 GM TOP SCH (09:00)
[2016-04-04] MEDS: BISACODYL 10 MG SUPP PR SCH (09:00)
[2016-04-04] MEDS: buPROPion **XL** TABLET 150MG (WELLBUTRIN XL) PO SCH (09:24)
[2016-04-04] MEDS: ALLOPURINOL 100 MG TAB PO SCH (09:25)
[2016-04-04] MEDS: amLODIPine 10 MG TAB PO SCH (09:25)
[2016-04-04 09:26] VITALS: BP 141/63
[2016-04-04] MEDS: **hydrALAZINE** 10 MG TAB PO SCH (09:26)
[2016-04-04] MEDS: CALCITRIOL 0.25 MCG CAP (S0169) PO SCH (09:26)
== END 2016-04-04 11:15 | disposition home health service (06) | DRG 534 ==
LOC: M ED 12:13 → M ED INP 15:29 → M PCU 17:40 → M MS5PR 03-20 18:10
PROVIDERS: ADMIT Hospitalist; ATTEND Family Medicine
PROC: 05HB33Z Insertion of Infusion Device into Right Basilic Vein, Percutaneous Approach (ICD-10-PCS; principal; 2016-03-22)
DX: S72.425A Nondisplaced fracture of lateral condyle of left femur, initial encounter for closed fracture (principal); Q61.3 Polycystic kidney, unspecified; N18.4 Chronic kidney disease, stage 4 (severe); N39.0 Urinary tract infection, site not specified; N17.9 Acute kidney failure, unspecified; Z68.41 Body mass index [BMI] 40.0-44.9, adult; K56.7 Ileus, unspecified; K21.9 Gastro-esophageal reflux disease without esophagitis; M10.9 Gout, unspecified; E78.5 Hyperlipidemia, unspecified; I12.9 Hypertensive chronic kidney disease with stage 1 through stage 4 chronic kidney disease, or unspecified chronic kidney disease; T39.395A Adverse effect of other nonsteroidal anti-inflammatory drugs [NSAID], initial encounter; E03.9 Hypothyroidism, unspecified; E66.01 Morbid (severe) obesity due to excess calories; W01.0XXA Fall on same level from slipping, tripping and stumbling without subsequent striking against object, initial encounter; Y92.019 Unspecified place in single-family (private) house as the place of occurrence of the external cause; B96.5 Pseudomonas (aeruginosa) (mallei) (pseudomallei) as the cause of diseases classified elsewhere; J30.9 Allergic rhinitis, unspecified; F32.9 Major depressive disorder, single episode, unspecified; K76.89 Other specified diseases of liver; K59.00 Constipation, unspecified; M94.0 Chondrocostal junction syndrome [Tietze]; R47.1 Dysarthria and anarthria; D64.9 Anemia, unspecified; Z98.84 Bariatric surgery status; Z87.442 Personal history of urinary calculi; Z79.899 Other long term (current) drug therapy

== ENCOUNTER → 2016-04-18 | Outpatient (REF) | payer MEDICARE, OTHER ==
[~2016-04-18] MED LIST changes: +CEPH250T PO; +ELIQ5TAB PO; +FEBU40TA PO; -LEVOTHYROXINE 0.15 MG TAB (150 MCG) PO SCH; +MELO7.5T6 PO; +VALS1TAB46 PO
== END ==
LOC: M SFHCADAM 09:13
PROVIDERS: ATTEND Physician Assistant
DX: R35.0 Frequency of micturition (principal)

== ENCOUNTER → 2016-05-08 | Outpatient (REF) | payer MEDICARE, OTHER | LOC: M SFHCADAM 20:28 | PROVIDERS: ATTEND Physician Assistant Medical | DX: R35.0 Frequency of micturition (principal) ==

== ENCOUNTER → 2016-06-11 | Outpatient (REF) | payer MEDICARE, OTHER | LOC: M SFHCADAM 14:54 | PROVIDERS: ATTEND Physician Assistant Medical | DX: R30.0 Dysuria (principal) ==

== ENCOUNTER → 2016-06-22 | Outpatient (REF) | payer MEDICARE, OTHER ==
[2016-06-22 19:39] LABS: BASO % 0.5 % (0.0-1.0); EOS # 0.2 K/mm3 (0.0-0.50); EOS % 3.3 % (0.0-3.0); LARGE UNSTAINED CELL # 0.1 K/mm3 (0.0-0.4); LARGE UNSTAINED CELL % 1.3 % (0.0-4.0); LYMPH # 1.1 K/mm3 (1.5-4.5); LYMPH % 15.8 % (24.0-44.0); MEAN CORPUSCULAR HEMOGLOBIN 29.9 pg (27.0-33.0); MEAN CORPUSCULAR HGB CONC 31.8 g/dl (32.0-36.5); MEAN CORPUSCULAR VOLUME 94.1 fl (80.0-96.0); MONO # 0.3 K/mm3 (0.0-0.8); NEUTROPHILS # 5.1 K/mm3 (1.8-7.7); PLATELET COUNT, AUTOMATED 279 k/mm3 (150-450); RED CELL DISTRIBUTION WIDTH 14.1 % (11.5-14.5); WHITE BLOOD COUNT 6.8 K/mm3 (4.0-10.0)
[2016-06-22 19:42] LABS: FOLATE > 24.0 NG/ML; VITAMIN B12 LEVEL 701 PG/ML
[2016-06-22 19:45] LABS: ALBUMIN 3.2 GM/DL (3.2-5.2); ALBUMIN/GLOBULIN RATIO 1.07 (1.00-1.93); ALKALINE PHOSPHATASE 91 U/L (45-117); ALT/SGPT 13 U/L (12-78); ANION GAP 12 MEQ/L (8-16); AST/SGOT 12 U/L (15-37); BILIRUBIN,TOTAL 0.2 MG/DL (0.2-1.0); BLOOD UREA NITROGEN 38 MG/DL (7-18); CALCIUM LEVEL 8.5 MG/DL (8.8-10.2); CARBON DIOXIDE LEVEL 23 MEQ/L (21-32); CHLORIDE LEVEL 107 MEQ/L (98-107); CHOLESTEROL LEVEL 174 MG/DL (<200); CREATININE FOR GFR 2.71 MG/DL (0.55-1.02); FERRITIN 127 NG/ML (8-252); FREE T4 1.23 NG/DL (0.76-1.46); GLOMERULAR FILTRATION RATE 18.3 (>39); GLUCOSE, FASTING 109 MG/DL (83-110); PERCENT SATURATION 22.6 % (13.2-37.4); SODIUM LEVEL 142 MEQ/L (136-145); TOTAL IRON BINDING CAPACITY 274 UG/DL (250-450); TOTAL PROTEIN 6.2 GM/DL (6.4-8.2); TRIGLYCERIDES LEVEL 196 MG/DL (<150)
== END ==
LOC: M SFHCADAM 14:56
PROVIDERS: ATTEND Physician Assistant Medical
DX: Q61.3 Polycystic kidney, unspecified (principal); E66.01 Morbid (severe) obesity due to excess calories; D64.9 Anemia, unspecified; R30.0 Dysuria; Z79.899 Other long term (current) drug therapy

== ENCOUNTER → 2016-08-28 | Outpatient (REF) | payer MEDICARE, OTHER ==
[2016-08-28 18:55] LABS: CALCIUM LEVEL 8.6 MG/DL (8.8-10.2); CREATININE FOR GFR 3.39 MG/DL (0.55-1.02); GLOMERULAR FILTRATION RATE 14.1 (>39); PHOSPHORUS LEVEL 3.6 MG/DL (2.5-4.9)
== END ==
LOC: M SFHCADAM 16:04
PROVIDERS: ATTEND Physician Assistant Medical
DX: I87.2 Venous insufficiency (chronic) (peripheral) (principal); R60.9 Edema, unspecified
CPT/HCPCS: 80069; G0463

== ENCOUNTER → 2016-09-11 | Outpatient (REF) | payer MEDICARE, OTHER ==
[2016-09-11 19:12] LABS: CALCIUM LEVEL 9.2 MG/DL (8.8-10.2); CREATININE FOR GFR 4.19 MG/DL (0.55-1.02); GLOMERULAR FILTRATION RATE 11.1 (>39); POTASSIUM SERUM 4.1 MEQ/L (3.5-5.1)
== END ==
LOC: M SFHCADAM 14:42
PROVIDERS: ATTEND Physician Assistant Medical
DX: N18.4 Chronic kidney disease, stage 4 (severe) (principal)

== ENCOUNTER → 2016-09-24 | Outpatient (CLI) | payer MEDICARE, OTHER ==
--- NOTE | 2016-09-24 16:12 | ECHO ---
DATE OF PROCEDURE: 09/24/2016 REFERRING PHYSICIAN: AFTAB Gonzales INDICATION: Localized edma. HEIGHT: 170 cm WEIGHT: 102 kg 2D MEASUREMENTS: Aortic root: 3.3 cm Left atrium: 3.5 cm Ventricular septum: 1.53 cm Posterior wall: 1.49 cm Left ventricle diastole: 4.4 cm LVOT: 1.8 cm Inferior vena cava: 1.9 cm DOPPLER MEASUREMENTS: Mild mitral regurgitation. Mitral E velocity 92.8 cm/s Mitral A velocity: 89.8 cm/s Mitral deceleration time: 211 ms Mild tricuspid regurgitation. Estimated right ventricle systolic pessure: 40 mmHg-45 mmHg assuming a pressure 5-10 mmHg. MITRAL ANNULAR TISSUE DOPPLER: E prime septal: 5.4 cm/s E prime latera: 7.3 cm/s 's DESCRIPTION: Rhythm was sinus with frequent PVC's. Image quality was fair. No pericardial effusion. This is a 2D, M-mode, color flow Doppler, and pulse waved Doppler examination and included mitral annular tissue Doppler. CONCLUSIONS: 1. Mild concentric left ventricle hypertrophy. No regional left ventricular (LV) wall motion abnormalities. Normal LV systolic function. Left ventricular ejection fraction (LVEF) 60% by visual estimate. Normal LV diastolic function for age. 2. Suggestive of moderate elevation of estimated right ventricle systolic pressure (40-45 mmHg). 3. Mild aortic valve sclerosis of a three-cuspid aortic valve. Mild aortic regurgitation. 4. Mild mitral annular calcification. Mild mitral regurgitation. 5. Otherwise normal appearing echocardiogram Doppler findings.
== END ==
LOC: M CARPUL 07:59
PROVIDERS: ATTEND Family Medicine
DX: I87.2 Venous insufficiency (chronic) (peripheral) (principal); R60.9 Edema, unspecified

== ENCOUNTER → 2016-10-26 | Outpatient (REF) | payer MEDICARE, OTHER ==
[~2016-10-26] MED LIST changes: +AMLO10TA2 PO; +ASPI81TA85 PO; +ATEN50TA2 PO; +BISO5TAB5 PO; +BUPR150T3 PO; +CEFD1CAP8 PO; +CEFT500T3 PO; +CLON-412 PO; +CLONI1TA PO; +COLC1TAB14 PO; -COLC1TAB5 PO; +DOXY100T PO; +FAMO1TAB11 PO; +FAMO20TA PO; +FLON1SPR; +FURO40TA2 PO; +GABA-279 PO; +HYDR-3911 PO; +HYDR10TAB PO; +HYDR50TA PO; +KEFL250C11 PO; -KEFL250C6 PO; -LEVO125T3 PO; +LEVO125T4 PO; +LIDO5TD TD; +MACR100C43 PO; -MELO7.5T6 PO; +MELO7.5T7 PO; +NYST1POW9 TOP; +PANT40TA2 PO; +SUCR10SS PO; +SUCR1SUS PO; +SYNT175T2 PO; +VITA100067 PO
[2016-10-26 18:53] LABS: BASO # 0.1 K/mm3 (0.0-0.2); BASO % 0.8 % (0.0-1.0); EOS # 0.2 K/mm3 (0.0-0.50); EOS % 3.1 % (0.0-3.0); LARGE UNSTAINED CELL # 0.1 K/mm3 (0.0-0.4); LARGE UNSTAINED CELL % 1.9 % (0.0-4.0); LYMPH # 1.1 K/mm3 (1.5-4.5); LYMPH % 12.8 % (24.0-44.0); MEAN CORPUSCULAR HEMOGLOBIN 31.7 pg (27.0-33.0); MEAN CORPUSCULAR HGB CONC 32.6 g/dl (32.0-36.5); MEAN CORPUSCULAR VOLUME 97.1 fl (80.0-96.0); MONO # 0.5 K/mm3 (0.0-0.8); MONO % 6.2 % (0.0-5.0); NEUTROPHILS # 5.6 K/mm3 (1.8-7.7); NEUTROPHILS % 75.3 % (36.0-66.0); PLATELET COUNT, AUTOMATED 293 k/mm3 (150-450); RED CELL DISTRIBUTION WIDTH 13.3 % (11.5-14.5); WHITE BLOOD COUNT 7.5 K/mm3 (4.0-10.0)
[2016-10-26 19:25] LABS: ALBUMIN 3.2 GM/DL (3.2-5.2); ALBUMIN/GLOBULIN RATIO 0.97 (1.00-1.93); BILIRUBIN,TOTAL 0.4 MG/DL (0.2-1.0); CREATININE FOR GFR 4.28 MG/DL (0.55-1.02); FREE T4 1.5 NG/DL (0.76-1.46); GLOMERULAR FILTRATION RATE 10.8 (>39); POTASSIUM SERUM 4.4 MEQ/L (3.5-5.1); TOTAL PROTEIN 6.5 GM/DL (6.4-8.2)
== END ==
LOC: M SFHCADAM 11:59
PROVIDERS: ATTEND Physician Assistant Medical
DX: Q61.3 Polycystic kidney, unspecified (principal); E03.9 Hypothyroidism, unspecified
CPT/HCPCS: 80053; 84439; 84443; 85025; G0463

== ENCOUNTER 2016-11-06 17:37 | Inpatient (IN) | payer MEDICARE, OTHER ==
[~2016-11-06] VITALS: Ht 170.2 cm; Wt 104.7 kg
[2016-11-06] MEDS: AMITRIPTYLINE 10 MG TAB PO SCH (00:25)
[2016-11-06] MEDS: NS 1,000 ML IV SCH (00:25)
[2016-11-06] MEDS: PANTOPRAZOLE 40MG TAB (PROTONIX) PO SCH (00:25)
[2016-11-06] MEDS: MULTIVITAMINS/MINERALS THERAP 1 TAB PO SCH (00:25)
[2016-11-06] MEDS: ATENOLOL 50 MG TAB PO SCH (00:25)
[~2016-11-06 17:37] MED LIST changes: -AMLO10TA2 PO; -ASPI81TA85 PO; -ATEN50TA2 PO; -BISO5TAB5 PO; -BUPR150T3 PO; -CEFD1CAP8 PO; -CEFT500T3 PO; -CLON-412 PO; -CLONI1TA PO; -DOXY100T PO; -FAMO1TAB11 PO; -FAMO20TA PO; -FLON1SPR; -FURO40TA2 PO; -GABA-279 PO; -HYDR-3911 PO; -HYDR10TAB PO; -HYDR50TA PO; -LIDO5TD TD; -MACR100C43 PO; -NYST1POW9 TOP; -PANT40TA2 PO; -SUCR10SS PO; -SUCR1SUS PO; -SYNT175T2 PO; -VITA100067 PO
[2016-11-06] MEDS ORDERED: ASPI1TAB PO (18:31)
[2016-11-06] MEDS ORDERED: FURO40TA2 PO (18:31)
[2016-11-06] MEDS ORDERED: PANT40TA2 PO (18:31)
[2016-11-06] MEDS ORDERED: ALLE180T33 PO (18:31)
[2016-11-06] MEDS ORDERED: HYDR-3716 PO (18:31)
[2016-11-06] MEDS ORDERED: VITA100067 PO (18:31)
[2016-11-06] MEDS ORDERED: VALS1TAB47 PO (18:31)
[2016-11-06] MEDS ORDERED: AMLO5TAB2 PO (18:31)
[2016-11-06 19:08] LABS: BASO % 0.5 % (0.0-1.0); EOS # 0.4 K/mm3 (0.0-0.50); LARGE UNSTAINED CELL # 0.1 K/mm3 (0.0-0.4); LARGE UNSTAINED CELL % 1.6 % (0.0-4.0); LYMPH # 1.3 K/mm3 (1.5-4.5); LYMPH % 17.1 % (24.0-44.0); MEAN CORPUSCULAR HEMOGLOBIN 31.4 pg (27.0-33.0); MEAN CORPUSCULAR HGB CONC 32.9 g/dl (32.0-36.5); MEAN CORPUSCULAR VOLUME 95.5 fl (80.0-96.0); MONO # 0.4 K/mm3 (0.0-0.8); MONO % 5.1 % (0.0-5.0); NEUTROPHILS % 70.7 % (36.0-66.0); PLATELET COUNT, AUTOMATED 251 k/mm3 (150-450); RED CELL DISTRIBUTION WIDTH 13.2 % (11.5-14.5)
[2016-11-06 19:30] LABS: ALBUMIN 2.9 GM/DL (3.2-5.2); ALBUMIN/GLOBULIN RATIO 0.69 (1.00-1.93); BILIRUBIN,DIRECT 0.1 MG/DL (0.0-0.2); BILIRUBIN,TOTAL 0.3 MG/DL (0.2-1.0); CREATININE FOR GFR 5.08 MG/DL (0.55-1.02); GLOMERULAR FILTRATION RATE 8.8 (>39); POTASSIUM SERUM 4.2 MEQ/L (3.5-5.1); TOTAL PROTEIN 7.1 GM/DL (6.4-8.2)
[2016-11-06] MEDS ORDERED: NS 1,000 ML IV SCH (19:56)
[2016-11-06] MEDS ORDERED: ASPI81TAEC PO (20:36)
[2016-11-06] MEDS ORDERED: SYNT175T2 PO (20:36)
[2016-11-06] MEDS ORDERED: FEBU40TA PO (20:36)
--- NOTE | 2016-11-06 20:50 | REPUSA ---
CLINICAL HISTORY: Renal failure with history of kidney stones. Bilateral flank pain. TECHNIQUE: Multiple axial, coronal, sagittal CT images were obtained through the abdomen and pelvis without administration of oral or IV contrast material. COMMENTS: A note is made of several hepatic hypodensities. These are not fully evaluated without contrast, the largest measures 3 x 2 cm located in the anterior segment of the right lobe. These could represent cysts versus hemangiomas. The spleen is normal. The patient is status post cholecystectomy. The pa ncreas is of normal contour and attenuation characteristics. There is no evidence of adrenal mass. Small hiatal hernia is present. 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 There are bilateral renal calcifications present. Surgical clips are present adjacent and medial to the lower aspect of the right kidney. Status post ventral abdominal hernia repair. Surgical anastomosis is noted in the mid abdomen in association with what appears to be small bowel l oop which is dilated compatible with partial obstruction. Consider further evaluation with CT perfor med with oral contrast. There is no evidence for appendicitis. There is evidence of extensive gastric surgery. There is no evidence of abdominal ascites or lymphadenopathy. There is no evidence of intrinsic or extrinsic bladder mass. There is no pelvic ascites or lymphaden opathy. The patient is status post complete hysterectomy. Images of the lung bases show no evidence of pleural or parenchymal mass. There are no pleural effus ions. The bony structures are free of lytic or blastic lesions. IMPRESSION: 1. Hepatic cysts versus hemangiomas. 2. The patient is status post cholecystectomy. The patient is status post complete hysterectomy. 3. Small hiatal hernia. 4. Bilateral renal cysts compatible with AD polycystic kidney disease. 5. Status post ventral abdominal hernia repair. 6. Surgical anastomosis is noted in the mid abdomen in association with what appears to be small bow el loop which is dilated compatible with partial obstruction. Consider further evaluation with CT pe rformed with oral contrast.
[2016-11-06] MEDS ORDERED: GLUCAGON FOR INJ 1 MG VIAL (J1610) SC PRN (21:00)
[2016-11-06] MEDS ORDERED: DEXTROSE 50% 50 ML SYRINGE IV PRN (21:00)
[2016-11-06] MEDS ORDERED: ONDANSETRON 4MG/2ML VIAL (J2405) IV PRN (21:00)
[2016-11-06] MEDS ORDERED: GLUCOSE 4 GM CHEW TABLET PO PRN (21:00)
[2016-11-06] MEDS ORDERED: GASTROGRAFIN SOLUTION 30ML PO ONE (21:15)
[2016-11-06] MEDS ORDERED: GASTROGRAFIN SOLUTION 30ML (Q9963) As Ordered ONE (21:15)
[2016-11-06] MEDS ORDERED: GASTROGRAFIN SOLUTION 30ML (Q9963) PO ONE (21:45)
[2016-11-06 22:24] LABS: MAGNESIUM LEVEL 2.6 MG/DL (1.8-2.4); PHOSPHORUS LEVEL 5.7 MG/DL (2.5-4.9)
--- NOTE | 2016-11-06 23:40 | REPUSA ---
CLINICAL HISTORY: Partial SBO TECHNIQUE: CT abdomen and pelvis without IV contrast. PO contrast was administered. COMPARISON: Same-day CT abdomen November 06, 2016. CT ABDOMEN WITHOUT CONTRAST: Lung bases: No lung base infiltrate or effusion. Stomach: Surgical changes of gastric bypass. Liver: No intrahepatic ductal dilation. Multiple hypodensities measuring up to 3 cm, likely represent ing cysts versus hemangiomas. Gallbladder: Cholecystectomy. Pancreas: No pancreatic duct dilation. Parenchymal atrophy. Bowel loops: The prominent loop of bowel subjacent to the umbilicus demonstrates anastomotic sutures, consistent with side to side anastomosis which results in dilated appearance. However, there is no o bstruction to contrast, as contrast reaches the level of the distal ileum. Spleen: Normal size. Adrenals: Normal size. Right kidney: Polycystic appearance. Nonobstructive renal stones without hydronephrosis. Left kidney: Polycystic appearance. Nonobstructive renal stones without hydronephrosis. Aorta: Normal caliber. Peritoneum: No free air. CT PELVIS WITHOUT CONTRAST: Colon: Multiple sigmoid diverticula. There is faint fat stranding on axial images 107-111. Bladder: Normally distended. Uterus: Hysterectomy. Peritoneum: No fluid. Lumbar spine: Degenerative spondylotic changes at multiple levels. IMPRESSION: 1. No evidence of bowel obstruction. The prominent loop of small bowel in the midabdomen is seen to r epresent a side to side ileal anastomosis (status post gastric bypass) with normal appearance. 2. Polycystic kidneys with hyperintense and hypointense lesions which are incompletely evaluated with out IV contrast. Nephrolithiasis without hydronephrosis. 3. Sigmoid diverticulosis. There is very faint adjacent fat stranding which may represent mild divert iculitis in the appropriate clinical setting. Correlate with clinical presentation.
[2016-11-07 00:15] VITALS: BP 190/100
[2016-11-07] MEDS: ANEXSIA, NORCO 7.5MG/325MG TABLET(HYDROCODONE/APAP) PO PRN ×2 (01:14→13:31)
[2016-11-07] MEDS: LEVOTHYROXINE 75MCG TABLET (0.075MG) PO SCH (05:09)
[2016-11-07] MEDS: LEVOTHYROXINE 100MCG TABLET (0.1MG) PO SCH (05:09)
[2016-11-07] MEDS: HEPARIN SOD (PORCINE) 5000 UNITS/ML VIAL SC SCH ×3 (05:24→20:37)
[2016-11-07 06:00] VITALS: BP 175/86
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
[2016-11-07 07:46] LABS: BASO % 0.6 % (0.0-1.0); EOS # 0.3 K/mm3 (0.0-0.50); EOS % 4.9 % (0.0-3.0); LARGE UNSTAINED CELL # 0.1 K/mm3 (0.0-0.4); LARGE UNSTAINED CELL % 2.2 % (0.0-4.0); LYMPH % 16.5 % (24.0-44.0); MEAN CORPUSCULAR HEMOGLOBIN 32.2 pg (27.0-33.0); MEAN CORPUSCULAR HGB CONC 33.5 g/dl (32.0-36.5); MONO # 0.4 K/mm3 (0.0-0.8); MONO % 6.4 % (0.0-5.0); NEUTROPHILS # 3.9 K/mm3 (1.8-7.7); NEUTROPHILS % 69.5 % (36.0-66.0); PLATELET COUNT, AUTOMATED 218 k/mm3 (150-450); RED CELL DISTRIBUTION WIDTH 13.1 % (11.5-14.5); WHITE BLOOD COUNT 5.6 K/mm3 (4.0-10.0)
[2016-11-07 07:49] VITALS: BP 171/80
[2016-11-07 07:52] LABS: INR 0.94
[2016-11-07 07:54] LABS: CALCIUM LEVEL 8.3 MG/DL (8.8-10.2); CREATININE FOR GFR 4.48 MG/DL (0.55-1.02); GLOMERULAR FILTRATION RATE 10.2 (>39); POTASSIUM SERUM 3.9 MEQ/L (3.5-5.1)
--- NOTE | 2016-11-07 07:58 | REP ---
Lumbar spine five views: Comparison is 05/04/2013. Images from the CT performed this same evening are also reviewed. There is mild scoliosis convex right at the thoracolumbar junction, possibly positional. Opaque material in the bowel loops is superimposed, likely from the CT scan. Vertebral body heights and alignment are normal. No compression deformities. There is degenerative disc disease at every lumbar level. There is no spondylolysis. There is no spondylolisthesis. There is moderate facet osteoarthritis. Impression: No compression deformity or listhesis. Multilevel degenerative disc disease. Moderate facet osteoarthritis. Signed by Juliano Peter MD 11/07/2016 07:49 A
--- NOTE | 2016-11-07 08:03 | REP ---
Chest, single AP view, the patient supine, 10:46 p.m.: Comparisons are 03/27/2016, 03/19/2016 and 06/07/2015. There is focal atelectasis adjacent to the dome of the left hemidiaphragm. Remainder of the lung raines are clear. Cardiac size is normal. The [place], mediastinum, and bony thorax are unremarkable for positioning. There are surgical clips in the mid upper abdomen. Impression: Focal atelectasis adjacent to the dome of the left hemidiaphragm. Otherwise, negative supine AP chest. Signed by Juliano Peter MD 11/07/2016 07:54 A
[2016-11-07] MEDS ORDERED: VALSARTAN 80 MG TAB (DIOVAN) PO SCH (09:00)
[2016-11-07] MEDS ORDERED: amLODIPine 5 MG TAB PO SCH (09:00)
[2016-11-07] MEDS: VITAMIN D 1,000 INTERNATIONAL UNITS TABLET PO SCH (10:11)
[2016-11-07] MEDS: buPROPion **XL** TABLET 150MG (WELLBUTRIN XL) PO SCH (10:11)
[2016-11-07] MEDS: ASPIRIN 81 MG ENTERIC TAB PO SCH (10:11)
[2016-11-07] MEDS: PANTOPRAZOLE 40MG TAB (PROTONIX) PO SCH ×2 (10:11→20:35)
[2016-11-07] MEDS: FEBUXOSTAT 40 MG TABLET (ULORIC) PO SCH (10:11)
[2016-11-07] MEDS: FEXOFENADINE 60 MG TAB PO SCH (10:12)
[2016-11-07] MEDS: CALCITRIOL 0.25 MCG CAP (S0169) PO SCH (10:12)
[2016-11-07] MEDS: amLODIPine 10 MG TAB PO SCH (10:13)
[2016-11-07] MEDS: NS 1,000 ML IV SCH (10:13)
[2016-11-07] MEDS: **hydrALAZINE** 10 MG TAB PO SCH ×2 (10:13→20:36)
--- NOTE | 2016-11-07 12:19 | IPNPDOC ---
Subjective Date Seen The patient was seen on 11/07/16. Subjective Chief Complaint/HPI The patient is a 76-year-old female admitted with a reason for visit of Partial Small Bowel Obstruction. Events since last encounter Pt denies any new issues. She denies CP, SOB, Abd pain, fevers, chills. Constitutional: Denies: Chills, Fever Pulmonary: Denies: Dyspnea Cardiovascular: Denies: Chest Pain Gastrointestinal: Denies: Abdominal Pain Objective Physical Examination General Exam: Positive: Alert, No Acute Distress Neck Exam: Positive: Supple, Negative: JVD Chest Exam: Positive: Clear to auscultation Heart Exam: Positive: Rate Normal, Regular Rhythm Abdomen Exam: Positive: Normal bowel sounds, Soft, Negative: Tenderness Extremity Exam: Positive: Edema Psych Exam: Positive: Mental status NL Assessment /Plan Problems (1) Acute renal failure Status: Acute Problem Specific Plan: Consult Specialist, Monitor Clinically, Repeat Labs Problem Text: 11/07 - Dr Watters from nephrology following. Dr Watters stopped IVF. Creatinine 4.48 today (5.08 yesterday). (2) Acute on chronic renal failure Problem Specific Plan: Consult Specialist, Monitor Clinically, Repeat Labs Problem Text: See above. (3) Partial small bowel obstruction Problem Specific Plan: Monitor Clinically Problem Text: 11/07 - Initial CT: 1. Hepatic cysts versus hemangiomas. 2. The patient is status post cholecystectomy. The patient is status post complete hysterectomy. 3. Small hiatal hernia. 4. Bilateral renal cysts compatible with AD polycystic kidney disease. 5. Status post ventral abdominal hernia repair. 6. Surgical anastomosis is noted in the mid abdomen in association with what appears to be small bowel loop which is dilated compatible with partial obstruction. Consider further evaluation with CT performed with oral contrast. Repeat CT: 1. No evidence of bowel obstruction. The prominent loop of small bowel in the midabdomen is seen to represent a side to side ileal anastomosis (status post gastric bypass) with normal appearance. 2. Polycystic kidneys with hyperintense and hypointense lesions which are incompletely evaluated without IV contrast. Nephrolithiasis without hydronephrosis. 3. Sigmoid diverticulosis. There is very faint adjacent fat stranding which may represent mild diverticulitis in the appropriate clinical setting. Correlate with clinical presentation. Pt tolerating PO. No N/V. No Abd pain. (4) Chronic back pain Status: Chronic Problem Specific Plan: Monitor Clinically Problem Text: 11/07 - Lumbar XRay: No compression deformity or listhesis. Multilevel degenerative disc disease. Moderate facet osteoarthritis. (5) Anemia of chronic disease Status: Chronic Problem Specific Plan: Monitor Clinically, Repeat Labs (6) HTN (hypertension) Status: Chronic Problem Specific Plan: Monitor Clinically Problem Text: On Atenolol, Norvasc, Apresoline. Lasix stopped. Nephro following. (7) GERD (gastroesophageal reflux disease) Status: Chronic Problem Specific Plan: Monitor Clinically Problem Text: On Protonix. (8) Hypothyroidism Status: Chronic Problem Specific Plan: Monitor Clinically Problem Text: On Synthroid. (9) History of ischemic colitis Problem Specific Plan: Monitor Clinically Problem Text: Pt follows with Dr Farrell. (10) Femoral fracture Problem Specific Plan: Monitor Clinically Problem Text: Stable. Plan/VTE VTE Prophylaxis Ordered?: Yes Plan/Urinary Catheter Reason for insertion/continuin: Critical Pt monitoring VS, I&O, 24H, Fishbone Vital Signs/I&O Vital Signs Date Time Temp Pulse Resp B/P (MAP) Pulse Ox O2 Delivery O2 Flow Rate FiO2 11/07/16 10:13 171/80 11/07/16 06:00 98.0 61 18 95 Room Air I&O- Last 24 Hours up to 6 AM 11/07/16 06:00 Intake Total 720 ml Output Total 400 ml Balance 320 ml Laboratory Data 24H LABS Laboratory Tests 2 11/06/16 18:58: White Blood Count 7.0, Red Blood Count 3.99L, Hemoglobin 12.5, Hematocrit 38.1, Mean Corpuscular Volume 95.5, Mean Corpuscular Hemoglobin 31.4, Mean Corpuscular Hemoglobin Concent 32.9, Red Cell Distribution Width 13.2, Platelet Count 251, Neutrophils (%) (Auto) 70.7H, Lymphocytes (%) (Auto) 17.1L, Monocytes (%) (Auto) 5.1H, Eosinophils (%) (Auto) 5.0H, Basophils (%) (Auto) 0.5 , Neutrophils # (Auto) 5.0, Lymphocytes # (Auto) 1.3L, Monocytes # (Auto) 0.4, Eosinophils # (Auto) 0.4, Basophils # (Auto) 0.0, Large Unclassified Cells % 1.6 , Large Unclassified Cells # 0.1, Anion Gap 10, Glomerular Filtration Rate 8.8L , Calcium Level 9.0, Phosphorus Level 5.7H, Magnesium Level 2.6H, Aspartate Amino Transf (AST/SGOT) 18, Alanine Aminotransferase (ALT/SGPT) 17, Alkaline Phosphatase 83, Total Bilirubin 0.3, Direct Bilirubin 0.1, Total Protein 7.1, Albumin 2.9L, Albumin/Globulin Ratio 0.69L, Lipase 129 11/06/16 20:46: Urine Appearance CLEAR, Urine Color STRAW, Urine pH 6.0, Urine Specific [place] 1.005, Urine Protein 1+H, Urine Glucose (UA) NEGATIVE, Urine Ketones NEGATIVE, Urine Urobilinogen 0.2, Urine Bilirubin NEGATIVE, Urine Leukocyte Esterase NEGATIVE, Urine Blood NEGATIVE, Urine Nitrite NEGATIVE, Urine WBC (Auto) 4H, Urine RBC (Auto) 1, Urine Hyaline Casts (Auto) 0, Urine Bacteria (Auto) 1+H, Urine Squamous Epithelial Cells 0, Urine Sperm (Auto) 11/07/16 07:28: White Blood Count 5.6, Red Blood Count 3.45L, Hemoglobin 11.1L, Hematocrit 33.1L , Mean Corpuscular Volume 96.0, Mean Corpuscular Hemoglobin 32.2, Mean Corpuscular Hemoglobin Concent 33.5, Red Cell Distribution Width 13.1, Platelet Count 218, Neutrophils (%) (Auto) 69.5H, Lymphocytes (%) (Auto) 16.5L, Monocytes (%) (Auto) 6.4H, Eosinophils (%) (Auto) 4.9H, Basophils (%) (Auto) 0.6 , Neutrophils # (Auto) 3.9, Lymphocytes # (Auto) 1.0L, Monocytes # (Auto) 0.4, Eosinophils # (Auto) 0.3, Basophils # (Auto) 0.0, Large Unclassified Cells % 2.2 , Large Unclassified Cells # 0.1, Anion Gap 11, Glomerular Filtration Rate 10.2L , Calcium Level 8.3L, Prothrombin Time 12.7, Prothromb Time International Ratio 0.94, Activated Partial Thromboplast Time 34.7, Blood Urea Nitrogen 68H, Creatinine 4.48H, Sodium Level 141, Potassium Level 3.9, Chloride Level 110H, Carbon Dioxide Level 20L CBC/BMP Laboratory Tests 11/06/16 18:58 Red Blood Count 3.99 L, Mean Corpuscular Volume 95.5, Mean Corpuscular Hemoglobin 31.4, Mean Corpuscular Hemoglobin Concent 32.9, Red Cell Distribution Width 13.2, Neutrophils (%) (Auto) 70.7 H, Lymphocytes (%) (Auto) 17.1 L, Monocytes (%) (Auto) 5.1 H, Eosinophils (%) (Auto) 5.0 H, Basophils (%) (Auto) 0.5, Neutrophils # (Auto) 5.0, Lymphocytes # (Auto) 1.3 L, Monocytes # ( Auto) 0.4, Eosinophils # (Auto) 0.4, Basophils # (Auto) 0.0 11/07/16 07:28 Red Blood Count 3.45 L, Mean Corpuscular Volume 96.0, Mean Corpuscular Hemoglobin 32.2, Mean Corpuscular Hemoglobin Concent 33.5, Red Cell Distribution Width 13.1, Neutrophils (%) (Auto) 69.5 H, Lymphocytes (%) (Auto) 16.5 L, Monocytes (%) (Auto) 6.4 H, Eosinophils (%) (Auto) 4.9 H, Basophils (%) (Auto) 0.6, Neutrophils # (Auto) 3.9, Lymphocytes # (Auto) 1.0 L, Monocytes # ( Auto) 0.4, Eosinophils # (Auto) 0.3, Basophils # (Auto) 0.0, Calcium Level 8.3 L Microbiology Microbiology 11/06/16 Urine Culture, Received Pending Gunnar Pagan Nov 07, 2016 12:19
--- NOTE | 2016-11-07 12:44 | CR ---
DATE OF CONSULTATION: 11/07/2016 REQUESTING PHYSICIAN: Dr. Mechelle Heredia CONSULTING PHYSICIAN: Dr. Watters REASON FOR CONSULTATION: Management of acute kidney injury superimposed on chronic kidney disease with history of polycystic kidney disease. CHIEF COMPLAINT: The patient was sent from nephrology office yesterday because of acute kidney injury with complaint of back pain and loose stools. HISTORY OF PRESENT ILLNESS: Ainsley Romero is a 76-year-old female with a past medical history of polycystic kidney disease. She has chronic kidney disease stage IV with a baseline creatinine of around 2.9 to 3.0. She was seen by Dr. Calvin in his office yesterday. She was complaining of lower back pain, history of loose stools and on laboratories done in the nephrology office she was found to have a creatinine of more than 4. She was sent to the emergency room for further evaluation. The patient got a CAT scan done yesterday for possible stone or hydronephrosis; however, the CAT scan did not show any acute intraabdominal pathology. The creatinine on the laboratories done yesterday was 5.0 with a GFR of 8.8. Nephrology service was called for further help in the management of this patient. When I saw the patient this morning, she was awake and alert. There was no apparent distress. She was getting IV fluids. The patient reports mild lower back pain. Otherwise, she denies any dysuria or hematuria. She does report frequency of urine and difficulty to control urine at times. PAST MEDICAL HISTORY: 1. Chronic kidney disease stage IV with a baseline creatinine of around 3 secondary to polycystic kidney disease. 2. History of morbid obesity. Status post gastric bypass. 3. History of anemia of chronic kidney disease. 4. Hypothyroidism. 5. Depression. 6. Hyperlipidemia. 7. History of urinary incontinence. 8. Ischemic colitis in March 2016. 9. History of multiple renal stones in the past. PAST SURGICAL HISTORY: 1. Multiple kidney stone surgeries and cyst drainage in the past. 2. Status post hysterectomy. 3. Status post ileojejunal bypass. 4. Status post colonoscopy in the past. ALLERGIES: The patient is allergic to IV CONTRAST MEDIA, BERRIES, FISH, IODINE, TAPE. FAMILY HISTORY: There is a positive family history of polycystic kidney disease. Her son also has polycystic kidney disease and is being evaluated for transplant at this time. REVIEW OF SYSTEMS: CONSTITUTIONAL: Patient denies any fevers, chills, and rigors. EYES: She denies any blurry vision or double vision. EARS, NOSE, THROAT (ENT): She denies any dysphagia, odynophagia or ear discharge. CARDIOVASCULAR: She denies chest pain, palpitation. RESPIRATORY: She denies any cough, wheezing or shortness of breath. GASTROINTESTINAL (GI): Patient reports some loose stools. She denies any nausea or vomiting. She does report low back pain. GENITOURINARY: She reports urinary incontinence and frequency of urine. MUSCULOSKELETAL: Patient reports severe low back pain for about 2 years. NEUROLOGICAL: Patient denies any weakness of any part of the body. She denies any seizure episodes. PSYCHIATRIC: The patient denies any depression or anxiety at this time. ENDOCRINE: The patient has a history of hypothyroidism. HEMATOLOGIC/ONCOLOGIC: She denies any easy bruising or bleeding at this time. All other review of systems negative. PHYSICAL EXAMINATION: GENERAL: Patient is awake, alert, oriented times three, sitting in bed, in no apparent distress at this time. VITAL SIGNS: Temperature 98 degrees Fahrenheit, blood pressure 175/86, pulse 61, respiratory rate 18, saturating at 95% on room air. INTAKE/OUTPUT: Urine output recorded overnight is 400 mL. Weight on the bed scale is 104.7 kg. HEAD and NECK: Extraocular muscles intact. Pupils equally round and reactive to light. Mucous membranes are moist. Neck is supple, there is no jugular venous distention (JVD). CARDIOVASCULAR: S1, S2, regular rate. No murmur, rub, or gallop. RESPIRATORY: Chest is clear to auscultation bilaterally. Bilateral equal air entry. No rales or rhonchi. ABDOMEN: Soft, obese. Positive bowel sounds, nontender at this time. I could not palpate the kidneys because of the body habitus. MUSCULOSKELETAL: No clubbing or cyanosis. Pulses are 2+. No edema of the extremities. CENTRAL NERVOUS SYSTEM ([employer]): No focal neurological deficits. Power is 5/5 in all extremities. PSYCHIATRIC : Normal mood and affect. SKIN: No rashes or ulcers. LYMPH NODES: No significant cervical, axillary or inguinal lymphadenopathy. LABORATORY REVIEW: CBC showed a WBC of 5.6, hemoglobin 11.1, platelets are 218. BMP showed a sodium 141, potassium 3.9, chloride 110, bicarbonate is 20, BUN 68, creatinine 4.4 with a GFR of 10.2, calcium 8.3. Microbiology: Urine culture is pending. IMAGING: X-ray of the lumbar spine showed no compression deformity or listhesis. Multiple degenerative disc changes are found. CAT scan of the abdomen and pelvis with oral contrast was done, which showed no evidence of bowel obstruction, polycystic kidney disease with hypodense lesions, sigmoid diverticulosis. CURRENT INPATIENT MEDICATIONS: The patient's medications were all reviewed by me and includes: - normal saline at 100 mL an hour . I stopped the IV fluids at this time because the patient is euvolemic and she is hypertensive. - amitriptyline 30 mg at night - amlodipine 10 mg daily, which was increased from 5 mg daily - aspirin 81 mg daily - atenolol 100 mg at night - Wellbutrin 300 mg daily - calcitriol 0.25 mcg daily - Uloric 40 mg daily - [place] 180 mg by mouth daily - hydralazine 10 mg by mouth twice a day was started today - levothyroxine 175 mcg by mouth daily - multivitamin - Zofran as needed - Protonix 40 mg by mouth twice a day - Diovan 160 mg by mouth daily, which was stopped this morning - vitamin D 1000 units by mouth daily ASSESSMENT: 76-year-old female with past medical history of chronic kidney disease stage IV secondary to polycystic kidney disease, morbid obesity, hypertension, hypothyroidism, depression, admitted this time because of acute kidney injury superimposed on chronic kidney disease. PLAN: 1. Acute kidney injury superimposed on chronic kidney disease stage IV. The patient's baseline creatinine is around 3. Acute kidney injury might have been secondary to dehydration because of use of Diovan and Lasix at home. However, the patient got IV fluids overnight and she is euvolemic at this time. Continue to encourage oral hydration. I am going to stop the IV fluids because of hypertension. I have also stopped the Diovan. For the patient's hypertension, I have started her on hydralazine, dose will be increased as needed. 2. Hypertension. The patient's blood pressure is acceptable at this time. Because of combination of IV fluids and holding the diuretics, I am going to stop Diovan because of worsening kidney function. Continue current dose of hydralazine 10 mg by mouth twice a day, atenolol 100 mg daily, amlodipine was increased to 10 mg by mouth daily. Dose will be adjusted as needed. 3. Anemia of chronic kidney disease. Hemoglobin is 11.1, which is acceptable at this time. No need of Aranesp administration at this time. 4. Metabolic acidosis. I am going to start the patient on Bicitra 10 mL by mouth twice a day. 5. Hypothyroidism. Continue current dose of Synthroid 175 mcg by mouth daily. 6. 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 Continue current dose of Uloric 40 mg by mouth daily. 7. Secondary hyperparathyroidism. Continue current dose of calcitriol 0.25 mcg by mouth daily. Thank you for involving us in the care of this patient. We shall be happy to follow the patient along with you tomorrow morning.
[2016-11-07 14:00] VITALS: BP 126/87
[2016-11-07] MEDS: AMITRIPTYLINE 10 MG TAB PO SCH (20:35)
[2016-11-07] MEDS: ATENOLOL 50 MG TAB PO SCH (20:37)
[2016-11-07] MEDS: MULTIVITAMINS/MINERALS THERAP 1 TAB PO SCH (20:37)
[2016-11-07 22:00] VITALS: BP 144/78
[2016-11-08 06:00] VITALS: BP 151/78
[2016-11-08] MEDS: HEPARIN SOD (PORCINE) 5000 UNITS/ML VIAL SC SCH ×3 (06:22→20:55)
[2016-11-08] MEDS: LEVOTHYROXINE 75MCG TABLET (0.075MG) PO SCH (06:22)
[2016-11-08] MEDS: LEVOTHYROXINE 100MCG TABLET (0.1MG) PO SCH (06:22)
[2016-11-08 07:23] LABS: BASO % 0.8 % (0.0-1.0); EOS # 0.3 K/mm3 (0.0-0.50); EOS % 5.8 % (0.0-3.0); LARGE UNSTAINED CELL # 0.1 K/mm3 (0.0-0.4); LARGE UNSTAINED CELL % 1.4 % (0.0-4.0); LYMPH % 19.3 % (24.0-44.0); MEAN CORPUSCULAR HEMOGLOBIN 31.5 pg (27.0-33.0); MEAN CORPUSCULAR HGB CONC 32.2 g/dl (32.0-36.5); MEAN CORPUSCULAR VOLUME 97.7 fl (80.0-96.0); MONO # 0.3 K/mm3 (0.0-0.8); MONO % 5.2 % (0.0-5.0); NEUTROPHILS # 3.4 K/mm3 (1.8-7.7); NEUTROPHILS % 67.4 % (36.0-66.0); PLATELET COUNT, AUTOMATED 235 k/mm3 (150-450); RED CELL DISTRIBUTION WIDTH 13.1 % (11.5-14.5); WHITE BLOOD COUNT 5.1 K/mm3 (4.0-10.0)
[2016-11-08 07:41] LABS: CREATININE FOR GFR 4.65 MG/DL (0.55-1.02); GLOMERULAR FILTRATION RATE 9.8 (>39); POTASSIUM SERUM 3.7 MEQ/L (3.5-5.1)
[2016-11-08] MEDS: FEBUXOSTAT 40 MG TABLET (ULORIC) PO SCH (08:56)
[2016-11-08] MEDS: buPROPion **XL** TABLET 150MG (WELLBUTRIN XL) PO SCH (08:56)
[2016-11-08] MEDS: amLODIPine 10 MG TAB PO SCH (08:56)
[2016-11-08] MEDS: LIDOCAINE 5% (LIDODERM) PATCH TD SCH (08:56)
[2016-11-08] MEDS: CALCITRIOL 0.25 MCG CAP (S0169) PO SCH (08:56)
[2016-11-08] MEDS: FEXOFENADINE 60 MG TAB PO SCH (08:56)
[2016-11-08] MEDS: ASPIRIN 81 MG ENTERIC TAB PO SCH (08:56)
[2016-11-08] MEDS: PANTOPRAZOLE 40MG TAB (PROTONIX) PO SCH ×2 (08:56→20:53)
[2016-11-08] MEDS: **hydrALAZINE** 10 MG TAB PO SCH ×2 (08:57→20:53)
[2016-11-08] MEDS: VITAMIN D 1,000 INTERNATIONAL UNITS TABLET PO SCH (08:57)
[2016-11-08] MEDS: cefTRIAXone SOD 1 GM in D5W MINI-BAG PLUS 50 ML IV SCH (08:58)
--- NOTE | 2016-11-08 11:59 | IPNPDOC ---
Subjective Date Seen The patient was seen on 11/08/16. Subjective Chief Complaint/HPI The patient is a 76-year-old female admitted with a reason for visit of Partial Small Bowel Obstruction. Events since last encounter Pt denies any new issues. Denies CP, SOB, Abd pain. Constitutional: Denies: Chills, Fever Pulmonary: Denies: Dyspnea Cardiovascular: Denies: Chest Pain Gastrointestinal: Denies: Abdominal Pain Objective Physical Examination General Exam: Positive: Alert, No Acute Distress Neck Exam: Positive: Supple, Negative: JVD Chest Exam: Positive: Clear to auscultation Heart Exam: Positive: Rate Normal, Regular Rhythm Abdomen Exam: Positive: Normal bowel sounds, Soft, Negative: Tenderness Extremity Exam: Positive: Edema Psych Exam: Positive: Mental status NL Assessment /Plan Problems (1) Acute renal failure Status: Acute Problem Specific Plan: Consult Specialist, Monitor Clinically, Repeat Labs Problem Text: 11/08 - Nephrology following. Creatinine is 4.65 today (baseline creatinine is around 3). Dr Watters notes acute kidney injury superimposed on chronic kidney disease stage IV, and may have been secondary to dehydration because of use of Diovan and Lasix at home. Diovan and Lasix were stopped. Started on hydralazine for HTN. PO hydration. 11/07 - Dr Watters from nephrology following. Dr Watters stopped IVF. Creatinine 4.48 today (5.08 yesterday). (2) Acute on chronic renal failure Problem Specific Plan: Consult Specialist, Monitor Clinically, Repeat Labs Problem Text: See above. (3) Partial small bowel obstruction Problem Specific Plan: Monitor Clinically Problem Text: 11/07 - Initial CT: 1. Hepatic cysts versus hemangiomas. 2. The patient is status post cholecystectomy. The patient is status post complete hysterectomy. 3. Small hiatal hernia. 4. Bilateral renal cysts compatible with AD polycystic kidney disease. 5. Status post ventral abdominal hernia repair. 6. Surgical anastomosis is noted in the mid abdomen in association with what appears to be small bowel loop which is dilated compatible with partial obstruction. Consider further evaluation with CT performed with oral contrast. Repeat CT: 1. No evidence of bowel obstruction. The prominent loop of small bowel in the midabdomen is seen to represent a side to side ileal anastomosis (status post gastric bypass) with normal appearance. 2. Polycystic kidneys with hyperintense and hypointense lesions which are incompletely evaluated without IV contrast. Nephrolithiasis without hydronephrosis. 3. Sigmoid diverticulosis. There is very faint adjacent fat stranding which may represent mild diverticulitis in the appropriate clinical setting. Correlate with clinical presentation. Pt tolerating PO. No N/V. No Abd pain. (4) Chronic back pain Status: Chronic Problem Specific Plan: Monitor Clinically Problem Text: 11/08 - Was started on lidoderm patches. 11/07 - Lumbar XRay: No compression deformity or listhesis. Multilevel degenerative disc disease. Moderate facet osteoarthritis. (5) Anemia of chronic disease Status: Chronic Problem Specific Plan: Monitor Clinically, Repeat Labs (6) HTN (hypertension) Status: Chronic Problem Specific Plan: Monitor Clinically Problem Text: On Atenolol, Norvasc, Apresoline. Lasix stopped. Nephro following. (7) GERD (gastroesophageal reflux disease) Status: Chronic Problem Specific Plan: Monitor Clinically Problem Text: On Protonix. (8) Hypothyroidism Status: Chronic Problem Specific Plan: Monitor Clinically Problem Text: On Synthroid. (9) History of ischemic colitis Problem Specific Plan: Monitor Clinically Problem Text: Pt follows with Dr Farrell. (10) Femoral fracture Problem Specific Plan: Monitor Clinically Problem Text: Stable. Plan/VTE VTE Prophylaxis Ordered?: Yes Plan/Urinary Catheter Reason for insertion/continuin: Critical Pt monitoring VS, I&O, 24H, [facility] Vital Signs/I&O Vital Signs Date Time Temp Pulse Resp B/P (MAP) Pulse Ox O2 Delivery O2 Flow Rate FiO2 11/08/16 09:00 Room Air 11/08/16 08:56 65 151/78 11/08/16 06:00 97.3 18 98 I&O- Last 24 Hours up to 6 AM 11/08/16 06:00 Intake Total 2220 ml Output Total 280 ml Balance 1940 ml Laboratory Data 24H LABS Laboratory Tests 2 11/08/16 06:47: White Blood Count 5.1, Red Blood Count 3.77L, Hemoglobin 11.9L, Hematocrit 36.8 , Mean Corpuscular Volume 97.7H, Mean Corpuscular Hemoglobin 31.5, Mean Corpuscular Hemoglobin Concent 32.2, Red Cell Distribution Width 13.1, Platelet Count 235, Neutrophils (%) (Auto) 67.4H, Lymphocytes (%) (Auto) 19.3L, Monocytes (%) (Auto) 5.2H, Eosinophils (%) (Auto) 5.8H, Basophils (%) (Auto) 0.8 , Neutrophils # (Auto) 3.4, Lymphocytes # (Auto) 1.0L, Monocytes # (Auto) 0.3, Eosinophils # (Auto) 0.3, Basophils # (Auto) 0.0, Large Unclassified Cells % 1.4 , Large Unclassified Cells # 0.1, Anion Gap 9, Glomerular Filtration Rate 9.8L, Blood Urea Nitrogen 67H, Creatinine 4.65H, Sodium Level 140, Potassium Level 3.7 , Chloride Level 106, Carbon Dioxide Level 25, Calcium Level 9.0 CBC/BMP Laboratory Tests 11/08/16 06:47 Red Blood Count 3.77 L, Mean Corpuscular Volume 97.7 H, Mean Corpuscular Hemoglobin 31.5, Mean Corpuscular Hemoglobin Concent 32.2, Red Cell Distribution Width 13.1, Neutrophils (%) (Auto) 67.4 H, Lymphocytes (%) (Auto) 19.3 L, Monocytes (%) (Auto) 5.2 H, Eosinophils (%) (Auto) 5.8 H, Basophils (%) (Auto) 0.8, Neutrophils # (Auto) 3.4, Lymphocytes # (Auto) 1.0 L, Monocytes # ( Auto) 0.3, Eosinophils # (Auto) 0.3, Basophils # (Auto) 0.0, Calcium Level 9.0 Microbiology Microbiology 11/06/16 Urine Culture - Final, Complete Escherichia Coli Gunnar Pagan Nov 08, 2016 11:59
[2016-11-08 14:00] VITALS: BP 148/72
--- NOTE | 2016-11-08 17:53 | IPN ---
DATE: 11/08/2016 SUBJECTIVE: Patient was seen and examined at the bed side today morning. She denies any active complaint. IV fluid was stopped yesterday. Patient is hemodynamically stable. Her Diovan was stopped yesterday and she was switched to hydralazine. Patient was found to have urinary tract infection. She was started on Rocephin this morning. There is no significant improvement in the renal function as compared with yesterday. Her creatinine continues to be 4.6 now. REVIEW OF SYSTEMS: Patient denies any fever, chills, rigors, headache, nausea, vomiting, chest pain, shortness of breath, pain in abdomen, constipation. She does report lower back pain and she reports that she was given lidocaine patch. Rest of review of system is negative. OBJECTIVE: Vital signs: Temperature is 97.3 degree Fahrenheit, blood pressure is 151/78, pulse is 65,respiratory rate 18, saturating on 98% on room air. Intake and output: Urine output recorded as 650 mL, there is no urine output recorded today. Weight in the bed scale is not available at this time. PHYSICAL EXAMINATION: GENERAL: Patient is awake, alert and oriented times three. She is morbidly obese laying in bed, in no apparent distress. HEAD AND NECK EXAM: Extraocular muscles intact. Pupils equal, round, reactive to light. Moist mucous membranes. Neck is supple. There is no jugular venous distention. CARDIOVASCULAR: S1, S2, regular rate, no murmurs, rubs or gallops. RESPIRATORY: Chest is clear to auscultation bilaterally, bilateral equal air entry. No rales or rhonchi. ABDOMEN: Soft, obese, positive bowel sounds, non-tender. At this time patient has a mild paraspinal tenderness in the back. MUSCULOSKELETAL : No clubbing or cyanosis. Pulses are 2+. No edema of the bilateral lower extremities. CENTRAL NERVOUS SYSTEM: No focal neurologic deficit. Power 5/5 in all extremities. PSYCHE: Normal mood and affect. SKIN: No rashes or ulcers. LAB REVIEW: CBC showed a WBC of 5.1, hemoglobin 11.9, platelets are 235. BMP showed sodium 140, potassium 3.7, chloride 106, bicarbonate 25, BUN 67, creatinine is 4.6, calcium is 9. Microbiology: Urine culture came back positive for Escherichia coli (E.coli). Current inpatient medications: Patient's medications are all reviewed by me. She has been started on ceftriaxone 1 gram IV every 24 hours. Her Diovan was stopped yesterday. She is currently on hydralazine 10 mg by mouth twice a day. There is no other change in the medications today as compared with yesterday. ASSESSMENT: 76-year-old female with past medical history of chronic kidney disease, stage 4 secondary to polycystic kidney disease, morbid obesity, hypertension, hypothyroidism, depression admitted this time because of acute kidney injury superimposed on chronic kidney disease. PLAN: 1. Acute kidney injury superimposed on chronic kidney disease stage 4. Patient's baseline creatinine is 3. I do not see any significant improvement in her kidney function. Her Diovan was stopped yesterday. Her Lasix was also held. Creatinine is almost the same as yesterday. It was 4.4 yesterday, 4.65 today. However, patient was found to have positive Escherichia coli (E.coli). She will be treated with IV Rocephin. However, I do not see any signs or symptoms or uremia in this patient at this [place]. There is no urgent need to do hemodialysis, but I am going to get vascular surgery on board to place an AV fistula in this patient and we can electively start hemodialysis in this patient within few weeks after the fistula matures. 2. Hypertension. Patient's blood pressure is acceptable at this time. Continue current dose of hydralazine 10 mg twice a day, atenolol 100 mg daily, amlodipine was increased to 10 mg daily. Blood pressure is acceptable at this time. 3. Metabolic acidosis. Bicarbonate is improved to 25. No need of bicarbonate administration at this time. 4. Chronic gout secondary to chronic kidney disease. Continue current dose of Uloric 40 mg by mouth daily. 5. Escherichia coli (E.coli) urinary tract infection. Patient was started on IV ceftriaxone.
[2016-11-08] MEDS: AMITRIPTYLINE 10 MG TAB PO SCH (20:53)
[2016-11-08] MEDS: MULTIVITAMINS/MINERALS THERAP 1 TAB PO SCH (20:54)
[2016-11-08] MEDS: ATENOLOL 50 MG TAB PO SCH (20:54)
[2016-11-08] MEDS: ANEXSIA, NORCO 7.5MG/325MG TABLET(HYDROCODONE/APAP) PO PRN (20:54)
[2016-11-08] MEDS ORDERED: **NOTE PATIENT COMMENT** MISC XX SCH (21:00)
[2016-11-08 22:00] VITALS: BP 198/86
[2016-11-09] MEDS: LEVOTHYROXINE 100MCG TABLET (0.1MG) PO SCH (05:39)
[2016-11-09] MEDS: LEVOTHYROXINE 75MCG TABLET (0.075MG) PO SCH (05:39)
[2016-11-09] MEDS: HEPARIN SOD (PORCINE) 5000 UNITS/ML VIAL SC SCH ×2 (05:39→14:00)
[2016-11-09 06:00] VITALS: BP 176/78
[2016-11-09 07:05] LABS: BASO % 0.6 % (0.0-1.0); EOS # 0.2 K/mm3 (0.0-0.50); EOS % 4.7 % (0.0-3.0); LARGE UNSTAINED CELL # 0.1 K/mm3 (0.0-0.4); LYMPH # 0.9 K/mm3 (1.5-4.5); LYMPH % 16.1 % (24.0-44.0); MEAN CORPUSCULAR HEMOGLOBIN 31.2 pg (27.0-33.0); MEAN CORPUSCULAR HGB CONC 32.5 g/dl (32.0-36.5); MONO # 0.3 K/mm3 (0.0-0.8); MONO % 6.5 % (0.0-5.0); NEUTROPHILS # 3.5 K/mm3 (1.8-7.7); NEUTROPHILS % 70.2 % (36.0-66.0); PLATELET COUNT, AUTOMATED 209 k/mm3 (150-450); RED CELL DISTRIBUTION WIDTH 13.1 % (11.5-14.5)
[2016-11-09 07:21] LABS: CALCIUM LEVEL 8.2 MG/DL (8.8-10.2); CREATININE FOR GFR 4.48 MG/DL (0.55-1.02); GLOMERULAR FILTRATION RATE 10.2 (>39); POTASSIUM SERUM 3.8 MEQ/L (3.5-5.1)
[2016-11-09 08:36] VITALS: BP 176/78
[2016-11-09] MEDS: **hydrALAZINE** 10 MG TAB PO SCH (08:36)
[2016-11-09] MEDS: FEBUXOSTAT 40 MG TABLET (ULORIC) PO SCH (08:36)
[2016-11-09] MEDS: FEXOFENADINE 60 MG TAB PO SCH (08:36)
[2016-11-09] MEDS: PANTOPRAZOLE 40MG TAB (PROTONIX) PO SCH (08:36)
[2016-11-09] MEDS: cefTRIAXone SOD 1 GM in D5W MINI-BAG PLUS 50 ML IV SCH (08:36)
[2016-11-09] MEDS: CALCITRIOL 0.25 MCG CAP (S0169) PO SCH (08:36)
[2016-11-09] MEDS: LIDOCAINE 5% (LIDODERM) PATCH TD SCH (08:36)
[2016-11-09] MEDS: ASPIRIN 81 MG ENTERIC TAB PO SCH (08:36)
[2016-11-09] MEDS: amLODIPine 10 MG TAB PO SCH (08:36)
[2016-11-09] MEDS: VITAMIN D 1,000 INTERNATIONAL UNITS TABLET PO SCH (08:36)
[2016-11-09] MEDS: buPROPion **XL** TABLET 150MG (WELLBUTRIN XL) PO SCH (08:36)
[2016-11-09 14:00] VITALS: BP 167/79
[2016-11-09] MEDS ORDERED: **hydrALAZINE** 10 MG TAB PO SCH (16:00)
--- NOTE | 2016-11-09 17:13 | IPN ---
DATE: 11/09/2016 SUBJECTIVE: Patient was seen and examined at the bedside today morning. Patient denies any active complaints apart from low backache. She denies any fevers, chills, rigors. Her blood pressure is slightly elevated today because her angiotensin-converting enzyme (BOBBY) inhibitors have been stopped. There is no significant improvement in the renal function. Creatinine continues to be at 4.4 today. REVIEW OF SYSTEMS: Patient denies any fevers, chills, rigors, headache, nausea, vomiting, change in appetite, chest pain, shortness of breath, pain in abdomen, constipation, diarrhea, or dysuria. Her only complaint is low backache. Rest of review of systems is negative. OBJECTIVE: Vital signs: Temperature is 97.9 degrees Fahrenheit, blood pressure is 176/78, pulse is 63, respiratory rate of 18, saturating 92% on room air. Intake and output: There is no urine output recorded. She had three voids yesterday. Weight in the bed scale is not available at this time. PHYSICAL EXAMINATION: GENERAL: Patient is awake, alert, oriented times three, sitting in the sofa. She is morbidly obese. No apparent distress at this time. HEAD AND NECK: Extraocular muscles intact. Pupils equally round and reactive to light. Mucous membranes are moist. Neck is supple. There is no jugular venous distention (JVD). CARDIOVASCULAR: S1, S2, regular rate. No murmur, rub, or gallop. RESPIRATORY: Chest is clear to auscultation bilaterally. Bilateral equal air entry. No rales or rhonchi. ABDOMEN: Soft, obese. Positive bowel sounds. Nontender. I could not palpate her kidneys because of the body habitus. MUSCULOSKELETAL: No clubbing or cyanosis. Pulses are 2+. No edema of the bilateral lower extremities. Patient has tenderness at the lumbosacral (LS) spine area. CENTRAL NERVOUS SYSTEM: No focal neurological deficit. Power is 5/5 in all extremities. PSYCHIATRIC: Normal mood and affect. LABORATORY REVIEW: CBC showed a WBC of 5, hemoglobin 10.7, platelets are 209. BMP showed sodium 145, potassium 3.8, chloride 111, bicarbonate 21, BUN 68, creatinine is 4.4, calcium 8.2. CURRENT INPATIENT MEDICATIONS: Patient's medications were all reviewed by me. She continues to be on intravenous (IV) Rocephin 1 gram IV every 24 hours. Her hydralazine has been increased to 20 mg by mouth three times a day. There is no other change in the medications today as compared with yesterday. ASSESSMENT: A 76-year-old female with past medical history of chronic kidney disease, stage IV, secondary to polycystic kidney disease, morbid obesity, hypertension, hypothyroidism, depression, admitted at this time because of acute kidney injury superimposed on chronic kidney disease. PLAN: 1. Acute kidney injury superimposed on chronic kidney disease, stage IV. Patient's baseline creatinine was around 3. It has bumped up to mid 4's, and it continues to be around 4.4. Patient was found to have urinary tract infection (UTI) as well. She is being given IV antibiotics at this time. I do not see any significant improvement in the renal function despite antibiotics and stopping the BOBBY and angiotensin receptor howie (ARB); however, she does not have any signs or symptoms of uremia. Hemodialysis planning, including arteriovenous (AV) fistula, will be done as outpatient. 2. Hypertension. Patient's blood pressure is slightly elevated. I have increased her hydralazine to 20 mg by mouth three times a day. Continue atenolol 100 mg daily, amlodipine 10 mg daily. Rest of the blood pressure medication adjustment will be done as outpatient. Avoid BOBBY and ARB at this time. Patient has progressed to chronic kidney disease (CKD), stage V. 3. Anemia and chronic kidney disease. Patient's hemoglobin is 10.7, which is acceptable at this time. 4. Escherichia (E) coli urinary tract infection (UTI). Patient is on IV ceftriaxone. Antibiotics can be switched to oral, and she can be given another 7 days of antibiotics after discharge from the hospital. E. coli is pansensitive. DISCHARGE PLANNING: It is okay to discharge the patient from nephrology standpoint. .She needs to followup with Dr. Calvin 2 weeks after discharge from the hospital. Vascular evaluation and AV fistula placement will be done as outpatient. Plan of care was discussed with the family medicine nurse practitioner, Mehnaz Walls.
[2016-11-09] MEDS ORDERED: HYDR10TAB PO (17:26)
[2016-11-09] MEDS ORDERED: CEFD1CAP8 PO (17:26)
[2016-11-09] MEDS ORDERED: LIDO5TD TD (17:26)
[2016-11-09] MEDS ORDERED: AMLO10TA2 PO (17:26)
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
[2017-01-28] MEDS ORDERED: GABA-279 PO (11:44)
[2017-02-02] MEDS ORDERED: FAMO1TAB11 PO (16:56)
[2017-02-02] MEDS ORDERED: FLON1SPR (16:56)
[2017-02-02] MEDS ORDERED: CLON-412 PO (16:56)
[2017-02-02] MEDS ORDERED: HYDR-3911 PO (16:56)
[2017-02-02] MEDS ORDERED: SUCR1SUS PO (16:56)
[2017-02-02] MEDS ORDERED: BISO5TAB5 PO (16:56)
[2017-02-04] MEDS ORDERED: ATEN50TA2 PO (15:46)
[2017-02-04] MEDS ORDERED: DOXY100T PO (15:46)
[2017-02-04] MEDS ORDERED: CEFT500T3 PO (15:46)
== END 2016-11-09 18:00 | disposition home or self-care (01) | DRG 683 ==
LOC: M ED 17:37 → M ED INP 20:55 → M MS5PR 11-07 00:15
PROVIDERS: ADMIT General Practice; ATTEND Family Medicine
DX: N17.9 Acute kidney failure, unspecified (principal); E87.2 Acidosis; N39.0 Urinary tract infection, site not specified; Q61.3 Polycystic kidney, unspecified; I13.10 Hypertensive heart and chronic kidney disease without heart failure, with stage 1 through stage 4 chronic kidney disease, or unspecified chronic kidney disease; N18.4 Chronic kidney disease, stage 4 (severe); K21.9 Gastro-esophageal reflux disease without esophagitis; B96.20 Unspecified Escherichia coli [E. coli] as the cause of diseases classified elsewhere; M1A.30X0 Chronic gout due to renal impairment, unspecified site, without tophus (tophi); E03.9 Hypothyroidism, unspecified; M54.9 Dorsalgia, unspecified; D63.1 Anemia in chronic kidney disease; Z98.84 Bariatric surgery status; Z87.442 Personal history of urinary calculi; Z79.82 Long term (current) use of aspirin; Z79.899 Other long term (current) drug therapy; Z91.013 Allergy to seafood; Z91.018 Allergy to other foods; Z91.041 Radiographic dye allergy status; Z91.048 Other nonmedicinal substance allergy status; Z90.710 Acquired absence of both cervix and uterus; Z90.49 Acquired absence of other specified parts of digestive tract

== ENCOUNTER → 2016-11-19 | Outpatient (REF) | payer MEDICARE, OTHER ==
[~2016-11-19] MED LIST changes: +AMLO10TA2 PO; +ASPI81TA85 PO; +ATEN50TA2 PO; +BISO5TAB5 PO; +BUPR150T3 PO; +CEFD1CAP8 PO; +CEFT500T3 PO; +CLON-412 PO; +CLONI1TA PO; +DOXY100T PO; +FAMO1TAB11 PO; +FAMO20TA PO; +FLON1SPR; +FURO40TA2 PO; +GABA-279 PO; +HYDR-3911 PO; +HYDR10TAB PO; +HYDR50TA PO; +LIDO5TD TD; +MACR100C43 PO; +NYST1POW9 TOP; +PANT40TA2 PO; +SUCR10SS PO; +SUCR1SUS PO; +SYNT175T2 PO; +VITA100067 PO
[2016-11-21 11:00] LABS: HEPATITIS B SURFACE ANTIBODY NEGATIVE (POSITIVE)
== END ==
LOC: M SMT 17:48
PROVIDERS: ATTEND Internal Medicine Nephrology
DX: N39.0 Urinary tract infection, site not specified (principal); N18.6 End stage renal disease

== ENCOUNTER 2016-11-26 10:52 | Inpatient (IN) | payer MEDICARE, OTHER ==
[~2016-11-26] VITALS: Ht 170.2 cm; Wt 105.8 kg
[~2016-11-26 10:52] MED LIST changes: -ASPI81TA85 PO; -ATEN50TA2 PO; -BISO5TAB5 PO; -BUPR150T3 PO; -CEFT500T3 PO; -CLON-412 PO; -CLONI1TA PO; -DOXY100T PO; -FAMO1TAB11 PO; -FAMO20TA PO; -FLON1SPR; -GABA-279 PO; -HYDR-3911 PO; -HYDR50TA PO; -MACR100C43 PO; -NYST1POW9 TOP; -SUCR10SS PO; -SUCR1SUS PO
[2016-11-26 11:57] LABS: BASO % 0.5 % (0.0-1.0); EOS # 0.3 K/mm3 (0.0-0.50); EOS % 3.8 % (0.0-3.0); LARGE UNSTAINED CELL # 0.1 K/mm3 (0.0-0.4); LARGE UNSTAINED CELL % 1.8 % (0.0-4.0); LYMPH # 0.9 K/mm3 (1.5-4.5); LYMPH % 10.3 % (24.0-44.0); MEAN CORPUSCULAR HEMOGLOBIN 31.4 pg (27.0-33.0); MEAN CORPUSCULAR HGB CONC 32.4 g/dl (32.0-36.5); MEAN CORPUSCULAR VOLUME 97.1 fl (80.0-96.0); MONO # 0.4 K/mm3 (0.0-0.8); MONO % 4.7 % (0.0-5.0); NEUTROPHILS # 6.2 K/mm3 (1.8-7.7); NEUTROPHILS % 78.9 % (36.0-66.0); PLATELET COUNT, AUTOMATED 231 k/mm3 (150-450); RED CELL DISTRIBUTION WIDTH 13.9 % (11.5-14.5); WHITE BLOOD COUNT 7.8 K/mm3 (4.0-10.0)
[2016-11-26 12:05] LABS: INR 0.95
--- NOTE | 2016-11-26 12:35 | REP ---
PORTABLE CHEST X-RAY: Single view. HISTORY: Chest pain. COMPARISON CHEST X-RAY: November 06, 2016. FINDINGS: EKG monitoring electrodes overlie the chest. The lungs are symmetrically aerated and clear. Pulmonary vasculature is a little cephalized. Pleural angles are sharp. There are clips in the left upper quadrant of the abdomen. No pleural effusion or pulmonary edema is seen. No focal infiltrate. IMPRESSION: Vascular cephalization. Otherwise no acute disease. Signed by Raphael Fuentes MD 11/26/2016 02:47 P
[2016-11-26 13:13] LABS: ALBUMIN/GLOBULIN RATIO 0.94 (1.00-1.93); BILIRUBIN,DIRECT 0.1 MG/DL (0.0-0.2); BILIRUBIN,TOTAL 0.3 MG/DL (0.2-1.0); CREATININE FOR GFR 3.93 MG/DL (0.55-1.02); FREE T4 1.15 NG/DL (0.76-1.46); GLOMERULAR FILTRATION RATE 11.9 (>39); POTASSIUM SERUM 4.2 MEQ/L (3.5-5.1); TOTAL PROTEIN 6.2 GM/DL (6.4-8.2)
--- NOTE | 2016-11-26 14:44 | REP ---
CT STUDY OF THE CHEST WITHOUT CONTRAST: HISTORY: Chest and abdominal pain. History of gastric bypass. Comparison is made with today's chest x-ray. CHEST CT FINDINGS: There is a small right pleural fluid collection. A trace of pleural fluid is suspected on the left as well. No pericardial effusion is seen. Cardiomegaly is observed along with vascular calcification in the coronary arteries. No hilar or mediastinal mass or adenopathy is appreciated. No adrenal mass is observed. Lung windows show some fissural thickening, but no infiltrate, mass, or significant nodule is seen. There are degenerative changes in the thoracic spine. IMPRESSION: Small bilateral effusions, right greater than left. Cardiomegaly. Vascular calcification. No other acute abnormality. Signed by Raphael Fuentes MD 11/26/2016 02:50 P
--- NOTE | 2016-11-26 14:48 | REP ---
CT ABDOMEN AND PELVIS WITHOUT IV OR ORAL CONTRAST: HISTORY: History of gastric bypass. Chest and abdominal pain. Comparison CT study, 11/06/[address] showed polycy[address] kidney changes. CT FINDINGS: Small bilateral pleural effusions are seen. There are scattered low density areas in the liver, consistent with cysts. The largest of these is in the right lobe posteriorly measuring 3.5 cm in greatest diameter. This is a little larger but otherwise unchanged when compared to the 03/05/2016 prior study. There are clips and sutures in the left upper quadrant and right mid abdomen consistent with gastric bypass. Gallbladder is not well seen and appears to be small and contracted. There are innumerable bilateral renal cysts, and the kidneys are somewhat enlarged. Several of these show focal calcifications. There is some fatty involution throughout the pancreas. No mass or cyst is seen. There is a small umbilical ventral hernia transmitting abdominal fat. There is a focally dilated air-filled loop of small bowel at the anastomosis in the central abdomen just to the right of midline. No obstructive lesion is seen. There is left colonic diverticulosis without CT evidence of diverticulitis. No large or small bowel dilation is seen. There is moderate colonic stool. I cannot identify the appendix, but there is no inflammatory abnormality. There are degenerative changes. IMPRESSION: Focally dilated small bowel loop at the anastomosis post gastric bypass. No obstructive lesion seen. Left colonic diverticulosis. Polycystic kidney changes. Small hepatic cysts. Status post gastric bypass. Small bilateral pleural effusions. Signed by Raphael Fuentes MD 11/26/2016 02:50 P
[2016-11-26] MEDS ORDERED: HEPARIN DRIP 25,000 UNITS in APPROPRIATE DILUENT 1 EA IV SCH ×2 (15:00→17:31)
[2016-11-26] MEDS ORDERED: HEPARIN SOD (PORCINE) 5000 UNITS/ML VIAL IV ONE (15:00)
[2016-11-26] MEDS ORDERED: BUPR150T3 PO (15:58)
[2016-11-26] MEDS ORDERED: AMLO5TAB2 PO (15:58)
[2016-11-26] MEDS ORDERED: ASPI81TA85 PO (15:58)
[2016-11-26] MEDS ORDERED: HYDR10TAB PO (16:01)
[2016-11-26] MEDS ORDERED: LIDO5TD TD (16:01)
[2016-11-26] MEDS ORDERED: NYST1POW9 TOP (16:06)
[2016-11-26] MEDS ORDERED: VALS160T PO (16:06)
[2016-11-26] MEDS ORDERED: MACR100C43 PO (16:06)
[2016-11-26] MEDS ORDERED: SIMV40TA2 PO (16:06)
[2016-11-26] MEDS ORDERED: ONDANSETRON 4MG/2ML VIAL (J2405) IV PRN (17:45)
[2016-11-26] MEDS ORDERED: HEPARIN SOD (PORCINE) 5000 UNITS/ML VIAL IV PRN (17:45)
[2016-11-26] MEDS ORDERED: NITROFURANTOIN (MACROBID) 100 MG CAP PO SCH (21:00)
[2016-11-26] MEDS ORDERED: ATENOLOL 50 MG TAB PO SCH (21:00)
[2016-11-26] MEDS ORDERED: **hydrALAZINE** 10 MG TAB PO SCH (21:00)
[2016-11-26] MEDS: PANTOPRAZOLE 40MG TAB (PROTONIX) PO SCH (22:19)
[2016-11-26] MEDS: SENOKOT S TAB PO SCH (22:19)
[2016-11-26 23:00] VITALS: BP 179/88
[2016-11-26] MEDS: **NOTE PATIENT COMMENT** MISC XX SCH (23:14)
[2016-11-26] MEDS: **hydrALAZINE** 50 MG TAB PO SCH (23:41)
[2016-11-26] MEDS: MULTIVITAMINS/MINERALS THERAP 1 TAB PO SCH (23:41)
[2016-11-26] MEDS: SIMVASTATIN 40 MG TAB PO SCH (23:41)
[2016-11-26] MEDS: AMITRIPTYLINE 10 MG TAB PO SCH (23:41)
--- NOTE | 2016-11-26 23:56 | HPE ---
DATE OF ADMISSION: 11/26/2016 PRIMARY CARE PROVIDER: Dr. Mechelle Rosenthal and Irena Armenta, Physician Inside Sales Supervisor CHILD ADOLESCENT PSYCHIATRIST: Dr. Calvin VASCULAR SURGERY: Dr. 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 Calvin, morbid obesity, status post gastric bypass, anemia of chronic disease, insomnia, hypothyroidism, depression, gastroesophageal reflux disease (GERD), dyslipidemia, distal femoral fractures and also chronic severe lower back pain, urinary incontinence, loss of sensation of lower abdomen with multiple surgeries, lacunar infarct of the brain, ischemic colitis 2015, kidney stones. Patient presented to the hospital with, since Saturday persistent chest pain that is pleuritic in nature, worsened with breathing, radiating to the shoulders. As per patient, it is 7 out of 10, sometimes also dull. Reported on Saturday with two episodes of nonbloody, nonbilious nausea/vomiting. Baseline constipation. Also, a history of obstructive sleep apnea. The patient presented to the emergency room. Cardiac enzymes first set was negative but given patient's morbid obesity, will need to rule out pulmonary embolism (PE) given D-dimer is also elevated. Subsequently, request was made for patient to be admitted pending V/Q scan, started on heparin drip. The patient denies any diaphoresis, shortness of breath, currently comfortable, able to make urine. ALLERGIES: ORTEGA, CODEINE, CONTRAST with anaphylaxis, FISH, FRUIT, IODINE and TAPE. PAST MEDICAL HISTORY: Chronic kidney disease stage IV to V with polycystic kidney disease. Morbid obesity with gastric bypass. Anemia of chronic disease. Insomnia. Hypothyroidism. Depression. GERD. Dyslipidemia. Distal femoral fractures. Chronic back pain. Urinary incontinence. Lacunar infarct of the brain. Ischemic colitis. Kidney stone. PAST SURGICAL HISTORY: Lithotripsy. Renal cystic drainage. Hysterectomy. Gastric bypass. Breast lumpectomy. Colonoscopy. FAMILY HISTORY: Noncontributory. SOCIAL HISTORY: Denies smoking. Admits to drinking wine once a day. Lives at home with . REVIEW OF SYSTEMS: Reported chest pain that is occasionally sharp versus occasionally dull, that is persistent. Reported nausea/vomiting yesterday but not today. All other review of systems are negative. HOME MEDICATIONS; - hydrocodone acetaminophen 7.5/325 by mouth daily as needed - amitriptyline 30 mg by mouth nightly - Norvasc 5 mg by mouth daily - aspirin 81 mg by mouth daily - atenolol 100 mg by mouth nightly - bupropion 150 mg by mouth daily - calcitriol 0.25 mg by mouth daily - [place] 180 mg by mouth daily - hydralazine 20 mg by mouth three times a day - Synthroid 175 mcg by mouth daily - lidocaine 5% transdermal - multivitamin one tablet by mouth daily - Nasacort nasal spray daily as needed - nitrofurantoin 100 mg by mouth twice a day - Nystatin as needed - Protonix 40 mg by mouth twice a day - Zocor 40 mg by mouth nightly - valsartan hydrochlorothiazide 160-12.5 mg by mouth daily - vitamin D 1000 units by mouth daily PHYSICAL EXAMINATION: VITAL SIGNS: Temperature 98.1, pulse 87, respirations 18, blood pressure 190/89, pulse oximetry 97% on room air. Patient morbidly obese, alert, oriented times three, in no acute distress. HEENT: Normocephalic, atraumatic. PULMONARY: Bilaterally clear to auscultation. CARDIAC: Regular rate and rhythm. Normal S1, S2. ABDOMEN: Soft, nontender, positive bowel sounds. EXTREMITIES: Trace edema bilateral lower extremities. EKG: Sinus rhythm at 65, T-wave inversion V1. LABORATORY: WBC 7.8, hemoglobin and hematocrit 10.4 over 32.1, platelets 231. Chemistry: Sodium 144, potassium 4.2, chloride 101.5, bicarbonate 18, BUN 50, creatinine 3.9. Cardiac enzymes negative times two. TSH 8.7. D-dimer 2511. 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 Problems: 1. Chest pain, pleuritic in nature. EKG is appreciated. Telemetry. Will need V/Q scan to rule out pulmonary embolism. Empirically started on heparin drip. Continue to monitor. Trend serial cardiac enzymes. 2. Hypertensive urgency. Continue blood pressure medication. Hydralazine has been increased. The patient likely will be needing dialysis in the near future. Norvasc has also been increased. Continue atenolol and hydrochlorothiazide. Monitor blood pressure. Adjust as needed. Continue valsartan. 3. Dyslipidemia. Continue statin. 4. Hypothyroidism. Thyroid function appreciated. Continue Synthroid. 5. Morbid obesity. Complicating care. 6. Obstructive sleep apnea. BO protocol. 7. Chronic kidney disease stage IV to V secondary to polycystic kidney disease. The patient is in the process of obtaining dialysis catheter from Dr. Nicolas. Nephrology, Dr. Watters, has been consulted. Continue pain medication. 8. Anemia of chronic disease. Continue to monitor hemoglobin and hematocrit. 9. Depression. Continue current medication. 10. Chronic pain. Continue current medication. 11. Gastroesophageal reflux disease. Continue proton pump inhibitor. 12. Vitamin D deficiency. Continue current medication. 13. Deep vein thrombosis (DVT) prophylaxis. Patient currently on heparin drip. Pending V/Q scan. Ultrasound Doppler appreciated. CT of the abdomen and CT of the chest has been appreciated.
[2016-11-27] VITALS (16 sets, daily range): BP systolic 142–174; BP diastolic 72–84; PULSE 76; O2SAT 92–98
[2016-11-27 04:33] LABS: ALBUMIN 2.4 GM/DL (3.2-5.2); ALBUMIN/GLOBULIN RATIO 0.75 (1.00-1.93); BILIRUBIN,TOTAL 0.3 MG/DL (0.2-1.0); CALCIUM LEVEL 8.3 MG/DL (8.8-10.2); CREATININE FOR GFR 3.71 MG/DL (0.55-1.02); GLOMERULAR FILTRATION RATE 12.7 (>39); MAGNESIUM LEVEL 2.2 MG/DL (1.8-2.4); POTASSIUM SERUM 3.6 MEQ/L (3.5-5.1); TOTAL PROTEIN 5.6 GM/DL (6.4-8.2)
[2016-11-27 05:03] LABS: MEAN CORPUSCULAR HEMOGLOBIN 31.9 pg (27.0-33.0); MEAN CORPUSCULAR HGB CONC 33.3 g/dl (32.0-36.5); MEAN CORPUSCULAR VOLUME 95.6 fl (80.0-96.0); RED CELL DISTRIBUTION WIDTH 13.7 % (11.5-14.5); WHITE BLOOD COUNT 6.5 K/mm3 (4.0-10.0)
[2016-11-27] MEDS: LEVOTHYROXINE 100MCG TABLET (0.1MG) PO SCH (05:10)
[2016-11-27] MEDS: LEVOTHYROXINE 75MCG TABLET (0.075MG) PO SCH (05:10)
[2016-11-27] MEDS ORDERED: VALSARTAN 80 MG TAB (DIOVAN) PO SCH (09:00)
[2016-11-27] MEDS ORDERED: hydroCHLOROthiazide 12.5 MG CAPSULE PO SCH (09:00)
[2016-11-27] MEDS ORDERED: amLODIPine 5 MG TAB PO SCH (09:00)
--- NOTE | 2016-11-27 09:32 | ECGEPIP ---
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
[2016-11-27] MEDS: LIDOCAINE 5% (LIDODERM) PATCH TD SCH (09:37)
[2016-11-27] MEDS: FEXOFENADINE 60 MG TAB PO SCH (09:38)
[2016-11-27] MEDS: NYSTATIN 100,000 UNITS/GM TOPICAL PWD 15 GM TOP SCH (09:38)
[2016-11-27] MEDS: CALCITRIOL 0.25 MCG CAP (S0169) PO SCH (09:38)
[2016-11-27] MEDS: ANEXSIA, NORCO 7.5MG/325MG TABLET(HYDROCODONE/APAP) PO PRN (09:39)
[2016-11-27] MEDS: PANTOPRAZOLE 40MG TAB (PROTONIX) PO SCH ×2 (09:39→21:29)
[2016-11-27] MEDS: amLODIPine 10 MG TAB PO SCH (09:40)
[2016-11-27] MEDS: VITAMIN D 1,000 INTERNATIONAL UNITS TABLET PO SCH (09:40)
[2016-11-27] MEDS: SENOKOT S TAB PO SCH ×2 (09:41→21:28)
[2016-11-27] MEDS: **hydrALAZINE** 50 MG TAB PO SCH ×3 (09:41→21:29)
[2016-11-27] MEDS: buPROPion **XL** TABLET 150MG (WELLBUTRIN XL) PO SCH (09:41)
--- NOTE | 2016-11-27 10:57 | IPNPDOC ---
Subjective Date Seen The patient was seen on 11/27/16. Subjective Chief Complaint/HPI The patient is a 76-year-old female admitted with a reason for visit of Chest Pain. Events since last encounter Pt reports pain in her chest with swallowing, worse with eating vs drinking, although Coffee and cranberry juice this morning really burned and caused the painful in her chest as well. She states that these symptoms started suddenly on Sat. She also states that last Sat/Tu she had mtp loose stools and has not have a BM since then. General: Reports: Fatigue Constitutional: Denies: Chills, Fever Pulmonary: Denies: Dyspnea, Cough Cardiovascular: Denies: Chest Pain, Palpitations Gastrointestinal: Denies: Nausea, Vomiting, Abdominal Pain Musculoskeletal: Reports: Back Pain Neurological: Reports: Weakness Psych: Reports: Mood Normal Objective Physical Examination General Exam: Positive: Alert, Cooperative, No Acute Distress ENT Exam: Positive: Mucous membr. moist/pink Chest Exam: Positive: Clear to auscultation, Normal air movement Heart Exam: Positive: Rate Normal, Normal S1, Normal S2 Abdomen Exam: Positive: Normal bowel sounds, Soft, Negative: Tenderness Extremity Exam: Positive: Edema (1- 2 mm pitting BLE) Neuro Exam: Positive: Normal Speech Psych Exam: Positive: Mood NL Assessment /Plan Problems (1) Chest pain Status: Acute Response to Treatment: Stable Discussed With: Patient Problem Specific Plan: Monitor Clinically, Repeat Labs Problem Text: this sounds like it is related to esophageal pain, she has had Neg Trop, she is scheduled for VQ scan this morning and is on heparin drip until it is confirmed that she doesn't have a PE. This was ordered d/t her pain and an elevated D dimer of 2511. I will start her on a GI cocktail to see if this helps alleviate her symptoms. If her VQ scan is neg, we can stop the heparin and transfer her to the floor. (2) Constipation Status: Chronic Response to Treatment: Uncontrolled Problem Specific Plan: Monitor Clinically Problem Text: Has Senokot ordered, will add Colace, MOM, Dulcolax to regimen. (3) GERD (gastroesophageal reflux disease) Status: Chronic Problem Specific Plan: Monitor Clinically Problem Text: See above. (4) Hypothyroidism Status: Chronic Response to Treatment: Stable Problem Specific Plan: Monitor Clinically Problem Text: Cont with Synthroid. (5) Anemia of chronic disease Status: Chronic Problem Text: Hgb stable. (6) HTN (hypertension) Status: Chronic Problem Specific Plan: Monitor Clinically (7) Pleural effusion Status: Acute Response to Treatment: Stable Problem Specific Plan: Monitor Clinically Problem Text: Small B effusions, R > L, resp status stable. (8) CKD (chronic kidney disease) stage 5, GFR less than 15 ml/min Status: Chronic Response to Treatment: Stable Problem Specific Plan: Monitor Clinically Problem Text: Follows with Nephro, await Permacath placement with Dr Nicolas to prepare for dialysis. Plan/VTE VTE Prophylaxis Ordered?: Yes VS, I&O, 24H, Fishbone Vital Signs/I&O Vital Signs Date Time Temp Pulse Resp B/P (MAP) Pulse Ox O2 Delivery O2 Flow Rate FiO2 11/27/16 09:41 142/82 11/27/16 09:40 63 11/27/16 09:39 18 Room Air 11/27/16 08:00 97.0 96 I&O- Last 24 Hours up to 6 AM 11/27/16 06:00 Intake Total 573 ml Output Total 500 ml Balance 73 ml Laboratory Data 24H LABS Laboratory Tests 2 11/26/16 11:36: D-Dimer, Quantitative 2511.4H 11/26/16 11:37: White Blood Count 7.8, Red Blood Count 3.30L, Hemoglobin 10.4L, Hematocrit 32.1L , Mean Corpuscular Volume 97.1H, Mean Corpuscular Hemoglobin 31.4, Mean Corpuscular Hemoglobin Concent 32.4, Red Cell Distribution Width 13.9, Platelet Count 231, Neutrophils (%) (Auto) 78.9H, Lymphocytes (%) (Auto) 10.3L, Monocytes (%) (Auto) 4.7, Eosinophils (%) (Auto) 3.8H, Basophils (%) (Auto) 0.5 , Neutrophils # (Auto) 6.2, Lymphocytes # (Auto) 0.9L, Monocytes # (Auto) 0.4, Eosinophils # (Auto) 0.3, Basophils # (Auto) 0.0, Large Unclassified Cells % 1.8 , Large Unclassified Cells # 0.1, Prothrombin Time 12.8, Prothromb Time International Ratio 0.95, Activated Partial Thromboplast Time 20.0L 11/26/16 12:38: Anion Gap 11, Glomerular Filtration Rate 11.9L, Calcium Level 9.0, Aspartate Amino Transf (AST/SGOT) 9L, Alanine Aminotransferase (ALT/SGPT) 13, Alkaline Phosphatase 84, Total Bilirubin 0.3, Direct Bilirubin 0.1, Total Creatine Kinase 47, Creatine Kinase MB 1.3, Creatine Kinase MB Relative Index 2.76, Troponin I 0.02, Total Protein 6.2L, Albumin 3.0L, Albumin/Globulin Ratio 0.94L , Lipase 143, Thyroid Stimulating Hormone (TSH) 8.710H, Free Thyroxine 1.15 11/26/16 18:10: Activated Partial Thromboplast Time 114.3H, Total Creatine Kinase 36, Creatine Kinase MB 1.4, Creatine Kinase MB Relative Index 3.88, Troponin I < 0.02 11/27/16 04:03: Activated Partial Thromboplast Time 52.0H, Anion Gap 11, Glomerular Filtration Rate 12.7L, Blood Urea Nitrogen 47H, Creatinine 3.71H, Sodium Level 147H, Potassium Level 3.6, Chloride Level 118H, Carbon Dioxide Level 18L, Calcium Level 8.3L, Aspartate Amino Transf (AST/SGOT) 9L, Alanine Aminotransferase (ALT/ SGPT) 13, Alkaline Phosphatase 65, Total Bilirubin 0.3, Total Protein 5.6L, Albumin 2.4L, Magnesium Level 2.2, Albumin/Globulin Ratio 0.75L 11/27/16 10:22: CBC/BMP Laboratory Tests 11/26/16 11:37 Red Blood Count 3.30 L, Mean Corpuscular Volume 97.1 H, Mean Corpuscular Hemoglobin 31.4, Mean Corpuscular Hemoglobin Concent 32.4, Red Cell Distribution Width 13.9, Neutrophils (%) (Auto) 78.9 H, Lymphocytes (%) (Auto) 10.3 L, Monocytes (%) (Auto) 4.7, Eosinophils (%) (Auto) 3.8 H, Basophils (%) ( Auto) 0.5, Neutrophils # (Auto) 6.2, Lymphocytes # (Auto) 0.9 L, Monocytes # ( Auto) 0.4, Eosinophils # (Auto) 0.3, Basophils # (Auto) 0.0 11/26/16 12:38 11/27/16 04:03 Red Blood Count 3.19 L, Mean Corpuscular Volume 95.6, Mean Corpuscular Hemoglobin 31.9, Mean Corpuscular Hemoglobin Concent 33.3, Red Cell Distribution Width 13.7, Calcium Level 8.3 L, Aspartate Amino Transf (AST/SGOT) 9 L, Alanine Aminotransferase (ALT/SGPT) 13, Alkaline Phosphatase 65, Total Bilirubin 0.3, Total Protein 5.6 L, Albumin 2.4 L JAYLEN ALVES PA-C Nov 27, 2016 10:57
[2016-11-27 11:26] LABS: CHOLESTEROL LEVEL 174 MG/DL (<200); TRIGLYCERIDES LEVEL 107 MG/DL (<150)
--- NOTE | 2016-11-27 12:01 | REP ---
VENTILATION-PERFUSION LUNG SCAN: HISTORY: Question pulmonary embolus. Sharp central chest pain TECHNIQUE: 1.0 mCi of technetium-99m DTPA aerosol is utilized for the ventilation study and was followed by a 5.5 mCi dose of technetium-99m MAA given intravenously for the perfusion examination. Eight planar images are required for each portion of the study. SCINTIGRAPHIC FINDINGS: There is some central tracheal bronchial deposition of ventilatory tracer on the ventilation study. There is a matched ventilation perfusion defect in the left lower lobe which is fairly large. No other perfusion defect is seen. IMPRESSION: Low probability scan for pulmonary embolus. Signed by Raphael Fuentes MD 11/27/2016 12:15 P
[2016-11-27] MEDS: FAMOTIDINE 20 MG TAB PO SCH ×2 (12:28→21:28)
[2016-11-27] MEDS: SUCRALFATE SUSP 1GM/10ML UD PO SCH ×3 (12:28→21:28)
[2016-11-27] MEDS: **NOTE PATIENT COMMENT** MISC XX SCH (21:00)
[2016-11-27] MEDS: AMITRIPTYLINE 10 MG TAB PO SCH (21:29)
[2016-11-27] MEDS: SIMVASTATIN 40 MG TAB PO SCH (21:29)
[2016-11-27] MEDS: MULTIVITAMINS/MINERALS THERAP 1 TAB PO SCH (21:29)
--- NOTE | 2016-11-27 23:28 | ECHO ---
DATE OF PROCEDURE: 11/27/2016 REFERRING PHYSICIAN: Brittany Obregon MD INDICATION: Precordial chest pain. HEIGHT: 170 cm WEIGHT: 103 kg 2D MEASUREMENTS: Ventricular septum: 1.07 cm Posterior wall: 1.13 cm Left ventricle diastole: 4.4 cm Left atrium: 4.1 cm Aortic root: 3.5 cm LVOT: 1.9 cm Inferior vena cava: 1.2 cm DOPPLER MEASUREMENTS: Trace aortic regurgitation. Aortic valve velocity: 156 cm/s LVOT velocity: 102 cm/s LVOT VTI: 22.6 cm Very mild mitral regurgitation. Mitral E velocity: 87.9 cm/s Mitral A velocity: 75.5 cm/s Mitral deceleration time: 222 ms Very mild tricuspid regurgitation. Estimated right ventricle systolic pressure 28 mmHg assuming a right atrial pressure of 5 mmHg. Pulmonary artery systolic pressure 16 mmHg by pulmonary acceleration time method. MITRAL ANNULAR TISSUE DOPPLER: E prime septal: 5.8 cm/s E prime lateral: 7.1 cm/s DESCRIPTION: Rhythm was sinus bradycardia with occasional to frequent premature ventricular contractions (PVC)s. This is a moderately technically difficult echocardiogram. This is a 2D, M-mode, color flow Doppler and pulse wave Doppler examination that included mitral annular tissue Doppler. CONCLUSIONS: 1. Normal left ventricle internal dimensions and wall thickness. No regional wall motion abnormalities of the left ventricle. Normal LV systolic function. Left ventricular ejection fraction (LVEF) of 70% by visual estimate. Normal LV diastolic function. 2. No pericardial effusion. 3. Mild left atrial dilatation. 4. Moderate mitral annular calcification. No mitral stenosis. Very mild mitral regurgitation. 5. Mild aortic valve sclerosis. Trace aortic regurgitation.
--- NOTE | 2016-11-27 23:30 | CR ---
DATE OF CONSULTATION: 11/27/2016 REQUESTING PHYSICIAN: Dr. Mechelle Rosenthal CONSULTING PHYSICIAN: Dr. Watters REASON FOR CONSULTATION: Management of end-stage renal disease secondary to polycystic kidney disease. CHIEF COMPLAINT: Patient presented to the hospital yesterday with pain in epigastric and nausea and vomiting. HISTORY OF PRESENT ILLNESS: Ainsley Romero is a 76-year-old female with past medical history of polycystic kidney disease, which has progressed to chronic kidney disease, stage V. Patient is being prepared as outpatient for initiation of hemodialysis. Patient reported that she is pending hemodialysis catheter placement, and she is also supposed to get an arteriovenous (AV) fistula placed. Patient presented to the hospital yesterday with pain in epigastrium, almost 7/10 in intensity, constant, associated with nausea and vomiting. Patient also has history of gastric bypass in the past. Patient was found to have elevated D-dimers, and she is also being worked up for possible pulmonary embolism. Nephrology service was called for further help in the management of chronic kidney disease, stage V. I saw the patient today morning. She was still complaining of mild pain in the epigastrium and nausea. She denies any shortness of breath. PAST MEDICAL HISTORY: 1. Chronic kidney disease, stage IV to early stage V, secondary to polycystic kidney disease. 2. She has moderate obesity. 3. She has history of gastric bypass surgery in the past. 4. Acute on chronic kidney disease. 5. Hypothyroidism. 6. History of depression. 7. Chronic back pain. 8. History of urinary incontinence in the past. 9. Kidney stones. 10. History of ischemic colitis. PAST SURGICAL HISTORY: 1. Patient has history of lithotripsy in the past. 2. History of renal cyst drainage. 3. Status post hysterectomy. 4. Status post gastric bypass in the past. 5. History of breast lumpectomy. 6. History of colonoscopy in the past. ALLERGIES: Patient is allergic to berries, CODEINE, IV CONTRAST MEDIA, fish, fruit, IODINE, and tape. FAMILY HISTORY: Positive family history of polycystic kidney disease. Her son also has polycystic kidney and chronic kidney disease, stage V. SOCIAL HISTORY: Patient denies any smoking or illicit drug abuse. Patient admits to drinking wine once a day. REVIEW OF SYSTEMS: CONSTITUTIONAL: She denies any fever, chills, or rigors. EYES: She denies any blurry vision or double vision. ENT: She denies any dysphagia, odynophagia, ear discharge. CARDIOVASCULAR: She denies any chest pain or palpitations. RESPIRATORY: She denies any shortness of breath or wheezing. GASTROINTESTINAL: She reports nausea, vomiting, pain in epigastrium, but she denies any melena or diarrhea. GENITOURINARY: She reports history of urinary incontinence, but she denies any dysuria or hematuria. MUSCULOSKELETAL: She denies any muscle aches or pains. PSYCHIATRIC: She reports history of depression. ENDOCRINE: Patient reports history of secondary hyperparathyroidism and hypothyroidism. HEMATOLOGIC/ONCOLOGIC: She denies any history of easy bruising or bleeding. All other review of systems is negative. PHYSICAL EXAMINATION: GENERAL: Patient is awake, alert, oriented times three, lying in bed in mild painful distress, complaining of pain in the epigastrium. VITAL SIGNS: Temperature is 97.8 degrees Fahrenheit, blood pressure is 174/84, pulse is 60, respiratory rate of 20, saturating 97% on room air. Intake and output: Urine output recorded is 100 mL yesterday, 1000 mL so far today since overnight. Weight in the bed scale was 104.4 kg yesterday. HEAD AND NECK: Extraocular muscles intact. Pupils equally round and reactive to light. Mucous membranes are moist. Neck is supple. There is no jugular venous distention (JVD). CARDIOVASCULAR: S1, S2, regular rate. No murmur, rub, or gallop. RESPIRATORY: Chest is clear to auscultation bilaterally. Bilateral equal air entry. No rales or rhonchi. ABDOMEN: Soft, obese. Positive bowel sounds. Very mild tenderness to deep palpation in the epigastrium. No organomegaly was appreciated because of patient's body habitus.. MUSCULOSKELETAL: No clubbing or cyanosis. Pulses are 2+. Trace edema of the bilateral lower extremities. PSYCHIATRIC: Normal mood and affect. CENTRAL NERVOUS SYSTEM: No focal neurological deficit. Power is 5/5 in all extremities. LABORATORY REVIEW: CBC showed a WBC of 6.5, hemoglobin 10.2, platelets are 231. PTT is 33.5. BMP showed sodium 147, potassium 3.6, chloride 118, bicarbonate is 18, BUN 47, creatinine is 3.7. A1c is 5.3, calcium 8.3. Albumin is 2.4. PT is 25.5. IMAGING: V/Q scan has low probability. CT scan of the abdomen and pelvis showed no obstructive lesion. History of gastric bypass in the past, polycystic kidneys, small hepatic cysts, small bilateral pleural effusions. CURRENT INPATIENT MEDICATIONS: Patient's medications were all reviewed by me. They include: - heparin drip - hydrocodone/Tylenol for pain - amitriptyline 30 mg at bedtime - amlodipine 10 mg daily - atenolol 25 mg every 6 hours - Wellbutrin 150 mg by mouth daily - calcitriol 2.25 mcg by mouth daily - Senokot-S one tablet twice a day - Pepcid 20 mg twice a day - [place] 180 mg by mouth daily - hydralazine 50 mg by mouth three times a day - levothyroxine 175 mcg by mouth daily - multivitamin - Zofran 4 mg every 6 hours as needed nausea or vomiting - Protonix 40 mg by mouth twice a day - simvastatin 40 mg by mouth daily - Carafate 1 gram by mouth with meals - valsartan was stopped today morning - vitamin D 1000 units by mouth daily ASSESSMENT: A 76-year-old female with history of chronic kidney disease, stage V, secondary to polycystic kidney disease, morbid obesity, history of gastric bypass in the past, hypothyroidism, and gastroesophageal reflux disease, admitted at this time because of pain in epigastrium. PLAN: 1. Epigastric pain, most likely gastric in nature. Patient is already on Protonix. She has been started on Carafate. I agree with giving her a few days' dose of Carafate. V/Q scan has been negative so far. Patient is not short of breath and denies any chest pain at this time. 2. Hypertensive urgency. Patient's hydralazine, amlodipine doses have been increased. Atenolol has already been increased by primary team. I have stopped the valsartan at this time because of worsening renal failure; however, if we start the patient on hemodialysis, valsartan will be restarted. 3. Chronic kidney disease, stage V. Patient has progressed to end-stage renal disease. She was already scheduled to have the Perm-A-Cath placed as outpatient; however, she got sick before that. Patient is going to get the Perm-A-Cath placed tomorrow morning, and she will be started on hemodialysis. Patient agrees with the plan. 4. Anemia secondary to end-stage renal disease. Hemoglobin is 10.2, which is acceptable at this time. No need of Aranesp administration. 5. Secondary hyperparathyroidism. Continue current dose of calcitriol. 6. Normal anion gap metabolic acidosis, most likely secondary to renal failure. Patient will be started on hemodialysis, which is expected to improve the acidosis at this time. Thank you for involving us in the care of this patient. We shall be happy to follow the patient along with you tomorrow morning. Plan of care was discussed with the patient today and with the primary team, Dr. Brday.
[2016-11-27] MEDS: ATENOLOL 25 MG TAB PO SCH (23:49)
[2016-11-28] VITALS (11 sets, daily range): BP systolic 145–194; BP diastolic 67–93; O2SAT 90–96
[2016-11-28 05:44] LABS: MEAN CORPUSCULAR HEMOGLOBIN 32.3 pg (27.0-33.0); MEAN CORPUSCULAR HGB CONC 33.5 g/dl (32.0-36.5); MEAN CORPUSCULAR VOLUME 96.4 fl (80.0-96.0); WHITE BLOOD COUNT 7.5 K/mm3 (4.0-10.0)
[2016-11-28 05:47] LABS: INR 1.1
[2016-11-28 05:58] LABS: ALBUMIN 2.4 GM/DL (3.2-5.2); ALBUMIN/GLOBULIN RATIO 0.75 (1.00-1.93); BILIRUBIN,TOTAL 0.3 MG/DL (0.2-1.0); CALCIUM LEVEL 8.8 MG/DL (8.8-10.2); CREATININE FOR GFR 3.85 MG/DL (0.55-1.02); GLOMERULAR FILTRATION RATE 12.2 (>39); MAGNESIUM LEVEL 2.4 MG/DL (1.8-2.4); POTASSIUM SERUM 3.9 MEQ/L (3.5-5.1); TOTAL PROTEIN 5.6 GM/DL (6.4-8.2)
[2016-11-28] MEDS: LEVOTHYROXINE 100MCG TABLET (0.1MG) PO SCH (06:08)
[2016-11-28] MEDS: ATENOLOL 25 MG TAB PO SCH ×4 (06:08→23:47)
[2016-11-28] MEDS: LEVOTHYROXINE 75MCG TABLET (0.075MG) PO SCH (06:08)
[2016-11-28] MEDS ORDERED: HEPARIN 1,000 UNITS/ML 10ML VIAL (FOR RADIOLOGY& DIALYSIS ONLY) As Ordered ONE ×2 (07:33→13:37)
[2016-11-28] MEDS ORDERED: LIDOCAINE 2% MDV 20 ML VIAL As Ordered ONE ×2 (07:33→13:37)
[2016-11-28] MEDS: FEXOFENADINE 60 MG TAB PO SCH (08:30)
[2016-11-28] MEDS: SUCRALFATE SUSP 1GM/10ML UD PO SCH ×4 (08:30→21:23)
[2016-11-28] MEDS: **hydrALAZINE** 50 MG TAB PO SCH ×3 (08:30→21:25)
[2016-11-28] MEDS: FAMOTIDINE 20 MG TAB PO SCH ×2 (08:31→21:25)
[2016-11-28] MEDS: PANTOPRAZOLE 40MG TAB (PROTONIX) PO SCH ×2 (08:31→21:24)
[2016-11-28] MEDS: LIDOCAINE 5% (LIDODERM) PATCH TD SCH (08:31)
[2016-11-28] MEDS: buPROPion **XL** TABLET 150MG (WELLBUTRIN XL) PO SCH (08:31)
[2016-11-28] MEDS: SENOKOT S TAB PO SCH ×2 (08:31→21:25)
[2016-11-28] MEDS: VITAMIN D 1,000 INTERNATIONAL UNITS TABLET PO SCH (08:31)
[2016-11-28] MEDS: CALCITRIOL 0.25 MCG CAP (S0169) PO SCH (08:31)
[2016-11-28] MEDS: amLODIPine 10 MG TAB PO SCH (08:31)
[2016-11-28] MEDS: NYSTATIN 100,000 UNITS/GM TOPICAL PWD 15 GM TOP SCH (08:32)
[2016-11-28] MEDS: cloNIDine 0.1 MG TAB PO SCH ×3 (09:16→21:25)
[2016-11-28] MEDS ORDERED: HEPARIN 1,000 UNITS/ML 10ML VIAL (FOR RADIOLOGY& DIALYSIS ONLY) XX ONE (11:00)
[2016-11-28 12:31] LABS: HEPATITIS B SURFACE ANTIBODY NEGATIVE (POSITIVE)
[2016-11-28] MEDS ORDERED: VALSARTAN 80 MG TAB (DIOVAN) PO ONE (19:15)
[2016-11-28] MEDS: **NOTE PATIENT COMMENT** MISC XX SCH (21:00)
[2016-11-28] MEDS: AMITRIPTYLINE 10 MG TAB PO SCH (21:24)
[2016-11-28] MEDS: SIMVASTATIN 40 MG TAB PO SCH (21:25)
[2016-11-28] MEDS: MULTIVITAMINS/MINERALS THERAP 1 TAB PO SCH (21:25)
[2016-11-28] MEDS: ANEXSIA, NORCO 7.5MG/325MG TABLET(HYDROCODONE/APAP) PO PRN (21:27)
--- NOTE | 2016-11-28 21:53 | IPN ---
DATE: 11/28/2016 SUBJECTIVE: Patient was seen and examined at the bedside today morning. Patient is pending tunneled hemodialysis catheter placement today. She reports that her pain in abdomen and nausea and vomiting are getting better. She denies any chest pain. She is hemodynamically stable at this time. REVIEW OF SYSTEMS: Patient denies any chest pain, shortness of breath. She reports pain in abdomen and nausea is improving. She denies any constipation or diarrhea. Rest of review of systems is negative. OBJECTIVE: VITAL SIGNS: Temperature is 97.5 degrees Fahrenheit, blood pressure is 172/76, pulse is 61, respiratory rate of 18, saturating 96% on room air. INTAKE and OUTPUT: Urine output recorded is 1.2 liters yesterday, 400 mL so far today since overnight. Weight in the bed scale is 106 kg. PHYSICAL EXAMINATION: GENERAL: Patient is awake, alert, oriented times three, laying in bed, morbidly obese, no apparent distress. HEAD and NECK EXAM: Extraocular muscles intact. Pupils equally round and reactive to light. Neck is supple. There is no jugular venous distention (JVD). Mucous membranes are moist. CARDIOVASCULAR: S1, S2, regular rate. No murmur, rub, or gallop. RESPIRATORY: Chest is clear to auscultation bilaterally. Bilateral equal air entry. No rales or rhonchi. ABDOMEN: Soft, obese. Positive bowel sounds. Nontender. No ascites. MUSCULOSKELETAL: No clubbing or cyanosis. Pulses are 2+. Trace edema of the bilateral lower extremities. CENTRAL NERVOUS SYSTEM: No focal neurological deficit. Power is 5/5 in all extremities. PSYCHIATRIC: Normal mood and affect. LABORATORY REVIEW: CBC showed WBC 7.5, hemoglobin 10.2, platelets are 205. BMP showed sodium 147, potassium 3.9, chloride 117, bicarbonate is 18, BUN is 54, creatinine is 3.8, albumin is 2.4. CURRENT INPATIENT MEDICATIONS: Patient's medications were all reviewed by me. I have restarted the patient on valsartan 160 mg by mouth daily. ASSESSMENT: 76-year-old female with history of chronic kidney disease stage V secondary to polycystic kidney disease, morbid obesity, history of gastric bypass in the past, hypothyroidism, and gastroesophageal reflux disease, admitted at this time because of pain in epigastrium. Nephrology service following the patient for management of chronic kidney disease stage V. PLAN: 1. Chronic kidney disease stage V. Patient has progressed to end-stage renal disease. Patient will get hemodialysis catheter placed today and she will start first session of hemodialysis today. 2. Epigastric pain. Pain in epigastrium is getting better with Carafate and proton pump inhibitors (PPIs). Continue the current regimen at this time. 3. Hypertensive urgency. Continue current dose of hydralazine, amlodipine, and atenolol. Valsartan was stopped because of worsening renal function, however since patient is being started on dialysis, I am restarting the valsartan which will help in the polycystic kidney induced FELISA activation. 4. Normal anion gap metabolic acidosis. Acidosis is expected to improve with hemodialysis and ultrafiltration. 5. Anemia secondary to end-stage renal disease. Hemoglobin is 10.2, which is acceptable at this time. No need to start Aranesp at this time. DISCHARGE PLANNING: Patient needs placement to [facility] hemodialysis center. As soon as she has a seat available outpatient, she will be discharged home. She is not ready to be discharged at this time because of hypertensive urgency and she is pending placement.
[2016-11-29] MEDS ORDERED: ACETAMINOPHEN TAB 650MG DOSE (2X325MG) PO PRN (03:00)
[2016-11-29 04:00] VITALS: BP 156/80
[2016-11-29] MEDS: LEVOTHYROXINE 75MCG TABLET (0.075MG) PO SCH (04:04)
[2016-11-29] MEDS: ATENOLOL 25 MG TAB PO SCH ×4 (04:04→23:47)
[2016-11-29] MEDS: LEVOTHYROXINE 100MCG TABLET (0.1MG) PO SCH (04:04)
[2016-11-29] MEDS: cloNIDine 0.1 MG TAB PO SCH ×3 (05:15→20:19)
[2016-11-29] MEDS: CALCITRIOL 0.25 MCG CAP (S0169) PO SCH (05:27)
[2016-11-29] MEDS: PANTOPRAZOLE 40MG TAB (PROTONIX) PO SCH ×2 (05:27→20:20)
[2016-11-29] MEDS: VITAMIN D 1,000 INTERNATIONAL UNITS TABLET PO SCH (05:28)
[2016-11-29] MEDS: SENOKOT S TAB PO SCH ×3 (05:28→20:25)
[2016-11-29] MEDS: FEXOFENADINE 60 MG TAB PO SCH (05:28)
[2016-11-29] MEDS: SUCRALFATE SUSP 1GM/10ML UD PO SCH ×4 (05:28→20:20)
[2016-11-29] MEDS: FAMOTIDINE 20 MG TAB PO SCH ×2 (05:28→20:20)
[2016-11-29] MEDS: NYSTATIN 100,000 UNITS/GM TOPICAL PWD 15 GM TOP SCH (05:29)
[2016-11-29] MEDS: buPROPion **XL** TABLET 150MG (WELLBUTRIN XL) PO SCH (05:29)
[2016-11-29] MEDS: LIDOCAINE 5% (LIDODERM) PATCH TD SCH (05:29)
[2016-11-29 05:31] LABS: MEAN CORPUSCULAR HEMOGLOBIN 32.1 pg (27.0-33.0); MEAN CORPUSCULAR HGB CONC 33.3 g/dl (32.0-36.5); MEAN CORPUSCULAR VOLUME 96.4 fl (80.0-96.0); RED CELL DISTRIBUTION WIDTH 13.9 % (11.5-14.5); WHITE BLOOD COUNT 6.2 K/mm3 (4.0-10.0)
[2016-11-29] MEDS: VALSARTAN 80 MG TAB (DIOVAN) PO SCH (05:31)
[2016-11-29] MEDS: amLODIPine 10 MG TAB PO SCH (05:31)
[2016-11-29] MEDS: **hydrALAZINE** 50 MG TAB PO SCH ×3 (05:32→20:20)
[2016-11-29 05:37] LABS: INR 1.05
[2016-11-29 05:51] LABS: ALBUMIN 2.1 GM/DL (3.2-5.2); ALBUMIN/GLOBULIN RATIO 0.7 (1.00-1.93); BILIRUBIN,TOTAL 0.3 MG/DL (0.2-1.0); CREATININE FOR GFR 3.23 MG/DL (0.55-1.02); GLOMERULAR FILTRATION RATE 14.9 (>39); MAGNESIUM LEVEL 2.2 MG/DL (1.8-2.4); POTASSIUM SERUM 3.6 MEQ/L (3.5-5.1); TOTAL PROTEIN 5.1 GM/DL (6.4-8.2)
[2016-11-29 08:00] VITALS: BP 146/66
[2016-11-29] MEDS ORDERED: HEPARIN 1,000 UNITS/ML 10ML VIAL (FOR RADIOLOGY& DIALYSIS ONLY) IV ONE (12:00)
[2016-11-29 15:00] VITALS: BP 148/78
[2016-11-29 19:55] VITALS: BP 162/90
[2016-11-29] MEDS: MULTIVITAMINS/MINERALS THERAP 1 TAB PO SCH (20:19)
[2016-11-29] MEDS: SIMVASTATIN 40 MG TAB PO SCH (20:19)
[2016-11-29] MEDS: AMITRIPTYLINE 10 MG TAB PO SCH (20:20)
[2016-11-29] MEDS: **NOTE PATIENT COMMENT** MISC XX SCH (20:20)
[2016-11-29 22:00] VITALS: BP 152/80
[2016-11-29] MEDS: ANEXSIA, NORCO 7.5MG/325MG TABLET(HYDROCODONE/APAP) PO PRN (22:37)
[2016-11-30] MEDS: LEVOTHYROXINE 100MCG TABLET (0.1MG) PO SCH (05:37)
[2016-11-30] MEDS: LEVOTHYROXINE 75MCG TABLET (0.075MG) PO SCH (05:37)
[2016-11-30] MEDS: ATENOLOL 25 MG TAB PO SCH ×2 (05:38→12:52)
[2016-11-30 06:00] VITALS: BP 133/68
[2016-11-30 08:43] LABS: MEAN CORPUSCULAR HEMOGLOBIN 31.6 pg (27.0-33.0); MEAN CORPUSCULAR HGB CONC 32.2 g/dl (32.0-36.5); WHITE BLOOD COUNT 5.8 K/mm3 (4.0-10.0)
[2016-11-30] MEDS: buPROPion **XL** TABLET 150MG (WELLBUTRIN XL) PO SCH (08:58)
[2016-11-30] MEDS: VALSARTAN 80 MG TAB (DIOVAN) PO SCH (08:58)
[2016-11-30] MEDS: CALCITRIOL 0.25 MCG CAP (S0169) PO SCH (08:58)
[2016-11-30] MEDS: PANTOPRAZOLE 40MG TAB (PROTONIX) PO SCH (08:58)
[2016-11-30] MEDS: FAMOTIDINE 20 MG TAB PO SCH (08:58)
[2016-11-30] MEDS: amLODIPine 10 MG TAB PO SCH (08:59)
[2016-11-30] MEDS: cloNIDine 0.1 MG TAB PO SCH (08:59)
[2016-11-30] MEDS: VITAMIN D 1,000 INTERNATIONAL UNITS TABLET PO SCH (08:59)
[2016-11-30] MEDS: **hydrALAZINE** 50 MG TAB PO SCH (08:59)
[2016-11-30] MEDS: SENOKOT S TAB PO SCH (08:59)
[2016-11-30] MEDS: NYSTATIN 100,000 UNITS/GM TOPICAL PWD 15 GM TOP SCH (09:00)
[2016-11-30] MEDS: SUCRALFATE SUSP 1GM/10ML UD PO SCH ×2 (09:00→12:51)
[2016-11-30] MEDS: LIDOCAINE 5% (LIDODERM) PATCH TD SCH (09:00)
[2016-11-30] MEDS: FEXOFENADINE 60 MG TAB PO SCH (09:02)
[2016-11-30 09:07] LABS: ALBUMIN 2.3 GM/DL (3.2-5.2); ALBUMIN/GLOBULIN RATIO 0.82 (1.00-1.93); BILIRUBIN,TOTAL 0.2 MG/DL (0.2-1.0); CALCIUM LEVEL 8.4 MG/DL (8.8-10.2); CREATININE FOR GFR 2.89 MG/DL (0.55-1.02); TOTAL PROTEIN 5.1 GM/DL (6.4-8.2)
[2016-11-30 09:33] LABS: INR 1.02
[2016-11-30 12:52] VITALS: BP 133/68
[2016-11-30 14:00] VITALS: BP 134/85
[2016-11-30] MEDS ORDERED: FAMO20TA PO ×2 (14:45→14:57)
[2016-11-30] MEDS ORDERED: SUCR10SS PO ×2 (14:45→14:57)
[2016-11-30] MEDS ORDERED: CLONI1TA PO ×2 (14:45→15:07)
[2016-11-30] MEDS ORDERED: HYDR50TA PO (14:45)
[2016-11-30] MEDS ORDERED: HYDR10TAB PO ×2 (14:49→14:53)
[2016-11-30] MEDS ORDERED: SUCRALFATE SUSP 1GM/10ML UD PO SCH (21:00)
--- NOTE | 2016-12-01 09:59 | DSES ---
DATE OF ADMISSION: 11/26/2016 DATE OF DISCHARGE: 11/30/2016 ATTENDING PHYSICIAN: Dr. Watters. PRIMARY CARE PROVIDER: Dr. Mechelle Heredia. CONDITION ON DISCHARGE: Stable. FINAL DIAGNOSES: 1. End stage renal disease, progressed to hemodialysis dependence. 2. Gastroesophageal reflux disease causing epigastric pain. 3. Hypertensive urgency. 4. Anemia secondary to end stage renal disease. PROCEDURES PERFORMED DURING THIS HOSPITALIZATION: The patient got an internal jugular (IJ) tunneled hemodialysis catheter placed during this admission. HISTORY OF PRESENT ILLNESS: Ainsley Romero is a 76-year-old female with past medical history of polycystic kidney disease which had progressed to chronic kidney disease Stage V before admission. She was being prepared as an outpatient for initiation of hemodialysis. The patient also has history of morbid obesity, status post gastric bypass surgery in the past. She presented to the hospital with severe pain in epigastrium, almost 7/10 in intensity, constant, associated with nausea and vomiting. Nephrology was called for further management of chronic kidney disease Stage V. The patient was also worked up for possible pulmonary embolism and VQ scan was negative. PERTINENT LABS ON DAY OF DISCHARGE: Included WBC 5.8, hemoglobin 10. BMP showed sodium 144, potassium 4, chloride 111, bicarbonate 23, BUN 25, creatinine 2.8. There were no positive cultures. HOSPITAL COURSE: 1. The patient was admitted on 11/26/2016. For the pain in epigastrium, she was given GI cocktail including Protonix, Pepcid and sucralfate. Her pain in epigastrium improved. 2. For chest pain, the patient got a VQ scan, which was negative. She was initially on heparin drip, which was later on stopped. 3. For polycystic kidney disease and chronic kidney disease Stage V, the patient had progressed to end stage renal disease. The patient got a tunneled hemodialysis catheter placed. She was dialyzed twice during this admission and she has a placement as outpatient at [facility] [place] on Saturday, , Saturday spot and she will continue hemodialysis as an outpatient. 4. For anemia secondary to end stage renal disease, the patient's hemoglobin was 10, which is acceptable. No Aranesp was started. The rest of the anemia management will be done as outpatient. 5. For metabolic acidosis, her acidosis improved with hemodialysis. 6. For hypertensive urgency, the patient's blood pressure was managed with hydralazine, amlodipine, atenolol. Valsartan was initially stopped, but after initiation of hemodialysis Valsartan was restarted. The patient was also started on clonidine 0.1 mg by mouth three times a day, but she was discharged on a lower dose of clonidine because she is getting hemodialysis and ultrafiltration which also helped lower the blood pressure. Her hydralazine dose has been increased to 50 mg by mouth three times a day. PHYSICAL EXAMINATION ON THE DAY OF DISCHARGE: GENERAL: The patient is awake, alert and oriented times three, morbidly obese, laying in bed, in no apparent distress. HEAD AND NECK EXAM: Extraocular muscles intact. Pupils equally round and reactive to light. Mucous membranes are moist. Neck is supple. There is no jugular venous distention. AV ACCESS: The patient has a right IJ tunneled hemodialysis catheter. CARDIOVASCULAR: S1, S2. Regular rate. No murmur, rub or gallop. RESPIRATORY: Chest is clear to auscultation bilaterally. Bilateral equal air entry. No rales or rhonchi. ABDOMEN: Soft. Obese. Positive bowel sounds. Nontender. No ascites. No organomegaly. CENTRAL NERVOUS SYSTEM: No focal neurological deficit. Power is 5/5 in all extremities. MUSCULOSKELETAL: No clubbing or cyanosis. Pulses are 2+. No edema of the extremities. PSYCHIATRIC: Normal mood and affect. DISCHARGE MEDICATIONS: - Petroleum 325/7.5 mg by mouth daily as needed pain - amitriptyline 30 mg at bedtime - amlodipine 5 mg daily - atenolol 100 mg daily - Wellbutrin 150 mg by mouth daily - calcitriol 0.25 mcg daily - clonidine 0.1 mg by mouth twice a day - Senokot one tablet twice a day - Pepcid 20 mg by mouth twice a day - [place] 180 mg by mouth daily - hydralazine 50 mg by mouth every 8 hours - levothyroxine 175 mcg daily - multivitamin one tablet daily - Nystatin topical powder as needed - Protonix 40 mg by mouth twice a day - simvastatin 40 mg by mouth daily - sucralfate 1 gram by mouth twice a day - Valsartan 160 mg by mouth daily - vitamin D 1000 units by mouth daily DISCHARGE INSTRUCTIONS: Diet - renal diet. 1800 kilocalorie fluid restriction. Activity - As tolerated. The patient was discharged to home. Followup appointment - Patient is supposed to go at [facility] in [place] on Saturday at 6:00 a.m. in the morning, 12/01/2016. I spent 45 minutes in coordinating and planning the discharge of this patient today.
--- NOTE | 2016-12-05 11:44 | REPKIM ---
DATE OF PROCEDURE: 11/28/2016 PREPROCEDURE DIAGNOSIS: End stage renal disease. POSTPROCEDURE DIAGNOSIS: End stage renal disease. PROCEDURE: Ultrasound with fluoroscopic guided right internal jugular vein 19 cm tip to cuff PermCath insertion. SURGEON: Dr. Jett Nicolas. PSYCHOMETRIC EXAMINER: Tremaine Kowalski. ANESTHESIA: Local with 20 mL of 2% lidocaine. ESTIMATED BLOOD LOSS: COMPLICATIONS: None. DRAINS: None. SPECIMENS: None. IMPLANTS: 24 cm EVENMORE hemodialysis catheter. INDICATION: The patient is a 76-year-old female with end stage renal disease who requires access for dialysis and will undergo placement of a PermCath. PROCEDURE: The patient was taken to the angiography suite and placed supine on the angiography room table and the right neck and chest region were prepped and draped in a standard surgical fashion. The right internal jugular vein was then cannulated with a micropuncture needle under ultrasound guidance. The wire was advanced through the micropuncture needle which was upsized to a micropuncture sheath. The Amplatz wire was advanced through the micropuncture sheath. The catheter was tunneled through the anterior chest wall and advanced through the introducer sheath in the right internal jugular vein and positioned with the tip in the superior vena cava/right atrial junction. The catheter was then secured to the anterior chest wall using #2-0 Prolene suture after anesthetizing the overlying skin with 2% lidocaine. The puncture wound in the right neck was closed using a #3-0 Monocryl in an inverted interrupted fashion. Steri-Strips and dressings were applied. Patient tolerated the procedure well. All instrument, sponge and needle counts were correct at the end of the case. There were no complications. Dr. Nicolas was present for and directed the entire case. Patient was transferred to the holding area and subsequently to the floor in stable condition. The PermCath is stable for use for hemodialysis access. RADIOLOGICAL SUPERVISION INTERPRETATION: The ultrasound was used to evaluate the right internal jugular vein which was noted to be easily compressible, free of thrombus and widely patent. The ultrasound was then used to guide cannulation of the right internal jugular vein which was then sequentially dilated under fluoroscopic guidance. The catheter was advanced through the introducer sheath and positioned with the tip in the superior vena cava/right atrial junction. There was no pneumo- or hemothorax noted at the completion of the procedure. The catheter is stable for use for hemodialysis access.
--- NOTE | 2016-12-10 10:38 | REP ---
Clinical: Pain and swelling. Technique: Figueroa scale and color Doppler evaluation using linear high frequency transducer. Findings: Ultrasound examination of the right and left lower extremity deep venous structures from the common femoral vein to the popliteal vein demonstrates normal compressibility flow and wave patterns in response to respiration and augmentation. There is no evidence for deep venous thrombosis. Impression: No evidence for deep venous thrombosis. Signed by Carmine Johnson MD 12/10/2016 10:30 A
--- NOTE | 2016-12-10 13:51 | IPN ---
DATE: 11/29/2016 SUBJECTIVE: Patient was seen and examined at the bedside today morning. Patient reports that her nausea and vomiting are getting better. She got first session of hemodialysis yesterday. She tolerated the hemodialysis procedure well. Patient is due for another session of hemodialysis today in the afternoon. REVIEW OF SYSTEMS: Patient denies any fever, chills, rigors, chest pain, shortness of breath. She has mild epigastric discomfort, but pain and vomiting are better. She denies any constipation or diarrhea. Rest of review of systems is negative. OBJECTIVE: Vital signs: Temperature is 97.3 degrees Fahrenheit, blood pressure is 148/78, pulse is 53, respirations rate of 18, saturating 100% on room air. Intake and output: Urine output recorded is 0 mL. Ultrafiltration with hemodialysis was 1 liter yesterday. Weight in the bed scale is 104.6 kg. PHYSICAL EXAMINATION: GENERAL: Patient is awake, alert, oriented times three, lying in bed. Morbidly obese. No apparent distress. HEAD AND NECK: Extraocular muscles intact. Pupils equally round and reactive to light. Mucous membranes are moist. Neck is supple. There is no jugular venous distention (JVD). CARDIOVASCULAR: S1, S2, regular rate. No murmur, rub, or gallop. RESPIRATORY: Chest is clear to auscultation bilaterally. Bilateral equal air entry. No rales or rhonchi. ABDOMEN: Soft, obese. Positive bowel sounds. Nontender. No ascites. MUSCULOSKELETAL: No clubbing or cyanosis. Pulses are 2+. Trace edema of the bilateral lower extremities. CENTRAL NERVOUS SYSTEM: No focal neurologic deficit. Power is 5/5 in all extremities. PSYCHIATRIC: Normal mood and affect. LABORATORY REVIEW: CBC showed a WBC 6.2, hemoglobin is 10, platelets are 209. BMP showed sodium 146, potassium 3.6, chloride 114, bicarbonate 24, BUN 41, creatinine is 3.23. Albumin is 2.1. CURRENT INPATIENT MEDICATIONS: Patient's medications were all reviewed by me. There are no change in the medications today as compared with yesterday, except that she has been restarted on valsartan 160 mg by mouth daily, because she has been started on dialysis, and valsartan has helped improve her blood pressure now. ASSESSMENT: A 76-year-old female with a history of chronic kidney disease, stage V, secondary to polycystic kidney disease, morbid obesity, history of gastric bypass in the past, hypothyroidism, and gastroesophageal reflux disease , admitted at this time because of pain in epigastrium secondary to gastroesophageal reflux. Nephrology service following the patient for management of chronic kidney disease, stage V. It has progressed to end-stage renal disease. RECOMMENDATIONS AND PLAN: 1. Chronic kidney disease, stage V. It has progressed to end-stage renal disease. Patient is hemodialysis dependent. She got the first session of hemodialysis done yesterday. She will get another session of hemodialysis today. I talked to the hemodialysis center. As outpatient she has a Saturday, , Saturday spot. 2. Epigastric pain. Pain in epigastrium is significantly better with Carafate and proton pump inhibitor (PPI). I would agree decrease the dose of Carafate according to renal failure, because long-term use of Carafate can cause aluminum toxicity. 3. Hypertensive urgency. Patient's blood pressure is significantly better. Hemodialysis and ultrafiltration are also helping to improve the blood pressure. Since I started the patient on hemodialysis, I have restarted her on valsartan, which helps with RAAS blockade in polycystic kidney disease. 4. Anemia secondary to end-stage renal disease. Hemoglobin is 10, which is acceptable. No need of Aranesp administration at this time. DISCHARGE PLANNING: Patient's outpatient placement at [facility] is all set now. Patient hopefully should be able to be discharged tomorrow morning. Patient's outpatient spot at [facility] is 6 a.m. on 12/01/2016. PABLO
[2017-01-28] MEDS ORDERED: GABA-279 PO (11:44)
[2017-02-02] MEDS ORDERED: CLON-412 PO (16:56)
[2017-02-02] MEDS ORDERED: HYDR-3911 PO (16:56)
[2017-02-02] MEDS ORDERED: FAMO1TAB11 PO (16:56)
[2017-02-02] MEDS ORDERED: SUCR1SUS PO (16:56)
[2017-02-02] MEDS ORDERED: BISO5TAB5 PO (16:56)
[2017-02-02] MEDS ORDERED: FLON1SPR (16:56)
[2017-02-04] MEDS ORDERED: ATEN50TA2 PO (15:46)
[2017-02-04] MEDS ORDERED: CEFT500T3 PO (15:46)
[2017-02-04] MEDS ORDERED: DOXY100T PO (15:46)
== END 2016-11-30 15:52 | disposition home or self-care (01) | DRG 683 ==
LOC: M ED 10:52 → M ED INP 17:39 → M PCU 22:40 → M MSPAV 11-29 19:50
PROVIDERS: ADMIT Hospitalist; ATTEND Internal Medicine Nephrology
PROC: 02HV33Z Insertion of Infusion Device into Superior Vena Cava, Percutaneous Approach (ICD-10-PCS; principal; 2016-11-28)
DX: N18.6 End stage renal disease (principal); Q61.3 Polycystic kidney, unspecified; N25.81 Secondary hyperparathyroidism of renal origin; E87.2 Acidosis; R07.81 Pleurodynia; I12.0 Hypertensive chronic kidney disease with stage 5 chronic kidney disease or end stage renal disease; E66.01 Morbid (severe) obesity due to excess calories; D63.1 Anemia in chronic kidney disease; G47.00 Insomnia, unspecified; K21.9 Gastro-esophageal reflux disease without esophagitis; E03.9 Hypothyroidism, unspecified; I16.0 Hypertensive urgency; F32.9 Major depressive disorder, single episode, unspecified; G47.33 Obstructive sleep apnea (adult) (pediatric); E78.5 Hyperlipidemia, unspecified; E55.9 Vitamin D deficiency, unspecified; K59.00 Constipation, unspecified; M54.5 Low back pain; R32 Unspecified urinary incontinence; Z86.73 Personal history of transient ischemic attack (TIA), and cerebral infarction without residual deficits; Z79.82 Long term (current) use of aspirin; Z87.442 Personal history of urinary calculi; Z98.84 Bariatric surgery status; Z91.041 Radiographic dye allergy status; Z91.018 Allergy to other foods; Z91.013 Allergy to seafood; Z88.8 Allergy status to other drugs, medicaments and biological substances; Z91.048 Other nonmedicinal substance allergy status; Z79.891 Long term (current) use of opiate analgesic; Z79.899 Other long term (current) drug therapy; Z68.36 Body mass index [BMI] 36.0-36.9, adult

== ENCOUNTER → 2016-12-25 | Outpatient (REF) | payer MEDICARE, OTHER ==
[~2016-12-25] MED LIST changes: +ASPI81TA85 PO; +ATEN50TA2 PO; +BISO5TAB5 PO; +BUPR150T3 PO; +CEFT500T3 PO; +CLON-412 PO; +CLONI1TA PO; +DOXY100T PO; +FAMO1TAB11 PO; +FAMO20TA PO; +FLON1SPR; +GABA-279 PO; +HYDR-3911 PO; +HYDR50TA PO; +MACR100C43 PO; +NYST1POW9 TOP; +SUCR10SS PO; +SUCR1SUS PO
[2016-12-25 14:32] LABS: YEAST LIKE CELL URINE AUTO SMALL
== END ==
LOC: M LAB REF 13:05
PROVIDERS: ATTEND Internal Medicine Nephrology
DX: N39.0 Urinary tract infection, site not specified (principal)

== ENCOUNTER 2017-01-09 13:12 | Emergency (ER) | payer OTHER, MEDICARE ==
[~2017-01-09] VITALS: Ht 170.2 cm; Wt 102.7 kg
[~2017-01-09 13:12] MED LIST changes: -ATEN50TA2 PO; -BISO5TAB5 PO; -CEFT500T3 PO; -CLON-412 PO; -DOXY100T PO; -FAMO1TAB11 PO; -FLON1SPR; -GABA-279 PO; -HYDR-3911 PO; -SUCR1SUS PO
[2017-01-09] MEDS ORDERED: LIDOCAINE 2% W/EPIN INJ 20ML **PRES FREE As Ordered ONE (13:46)
[2017-01-09] MEDS ORDERED: LIDOCAINE 2% W/EPIN INJ 20ML **PRES FREE INJ ONE (14:00)
[2017-01-09] MEDS ORDERED: ADACEL/BOOSTRIX VACCINE (DIPHTH/PERTUSS/ACELL/TETANUS)0.5ML SYR (90715) IM ONE (14:00)
[2017-01-09 14:19] LABS: BASO % 0.3 % (0.0-1.0); EOS # 0.2 10^3/uL (0.0-0.50); EOS % 2.2 % (0.0-3.0); IMMATURE GRANULOCYTE % 1.4 % (0-0); LYMPH # 0.8 10^3/uL (1.5-4.5); LYMPH % 9.5 % (24.0-44.0); MEAN CORPUSCULAR HEMOGLOBIN 30.8 pg (27.0-33.0); MEAN CORPUSCULAR HGB CONC 32.2 g/dl (32.0-36.5); MEAN CORPUSCULAR VOLUME 95.6 fl (80.0-96.0); MONO # 0.8 10^3/uL (0.0-0.8); MONO % 8.5 % (0.0-5.0); NEUTROPHILS # 6.9 10^3/uL (1.8-7.7); NEUTROPHILS % 78.1 % (36.0-66.0); PLATELET COUNT, AUTOMATED 360 10^3/uL (150-450); RED CELL DISTRIBUTION WIDTH 12.8 % (11.5-14.5); WHITE BLOOD COUNT 8.8 10^3/uL (4.0-10.0)
[2017-01-09 14:35] LABS: CALCIUM LEVEL 9.1 MG/DL (8.8-10.2); CREATININE FOR GFR 3.02 MG/DL (0.55-1.02); GLOMERULAR FILTRATION RATE 16.1 (>39); POTASSIUM SERUM 3.4 MEQ/L (3.5-5.1)
--- NOTE | 2017-01-09 15:05 | REP ---
CT Head without contrast HISTORY: Fall COMPARISON: 03/20/2016 Areas of decreased attenuation are present in the periventricular white matter. This represents small-vessel ischemic disease. There is no intraparenchymal hemorrhage, acute infarct, mass or midline shift. The ventricular system and cortical sulci are dilated consistent with minimal volume loss. There is no extra cerebral collection. There is no fracture. The visualized sinuses are clear. IMPRESSION: 1. Small vessel ischemic disease. 2. Minimal volume loss. Signed by Mat Hodgson MD 01/09/2017 02:56 P
[2017-01-09] MEDS ORDERED: ACETAMINOPHEN 325 MG TAB PO ONE (15:15)
--- NOTE | 2017-01-09 15:46 | REP ---
CT CERVICAL SPINE WITHOUT CONTRAST: HISTORY: Neck pain. COMPARISON: 05/04/2013 There is no acute fracture. Disc bulges are present at the C3-4, C4-5 and C6-7 levels. A disc bulge with associated osteophyte formation is present at the C5-6 level. There is minimal narrowing of the spinal canal. Uncinate process and/or facet hypertrophy are present at the C2-3 through C6-7 levels. These findings produce minimal narrowing of the neural foramina. The C4-5 and C6-7 intervertebral discs are decreased in height consistent with disc degeneration. There are 2 mm of anterior subluxation of C4 on C5. IMPRESSION: 1. There is no acute fracture. 2. There is cervical spondylosis at the C2-3 through C6-7 levels. Signed by Mat Hodgson MD 01/09/2017 03:57 P
[2017-01-09 16:08] VITALS: BP 148/72
[2017-01-28] MEDS ORDERED: GABA-279 PO (11:44)
[2017-02-02] MEDS ORDERED: FLON1SPR (16:56)
[2017-02-02] MEDS ORDERED: FAMO1TAB11 PO (16:56)
[2017-02-02] MEDS ORDERED: HYDR-3911 PO (16:56)
[2017-02-02] MEDS ORDERED: SUCR1SUS PO (16:56)
[2017-02-02] MEDS ORDERED: CLON-412 PO (16:56)
[2017-02-02] MEDS ORDERED: BISO5TAB5 PO (16:56)
[2017-02-04] MEDS ORDERED: ATEN50TA2 PO (15:46)
[2017-02-04] MEDS ORDERED: DOXY100T PO (15:46)
[2017-02-04] MEDS ORDERED: CEFT500T3 PO (15:46)
== END 2017-01-09 16:10 | disposition home or self-care (01) ==
LOC: M ED 13:12
DX: S00.91XA Abrasion of unspecified part of head, initial encounter (principal); W01.0XXA Fall on same level from slipping, tripping and stumbling without subsequent striking against object, initial encounter; Y92.512 Supermarket, store or market as the place of occurrence of the external cause; Y93.89 Activity, other specified; Y99.8 Other external cause status; Z79.899 Other long term (current) drug therapy; Z79.82 Long term (current) use of aspirin; Z88.5 Allergy status to narcotic agent; Z91.041 Radiographic dye allergy status; Z91.048 Other nonmedicinal substance allergy status; L23.1 Allergic contact dermatitis due to adhesives; Z91.013 Allergy to seafood; Z91.018 Allergy to other foods

== ENCOUNTER → 2017-01-16 | Outpatient (CLI) | payer MEDICARE, OTHER ==
[~2017-01-16] MED LIST changes: +ATEN50TA2 PO; +BISO5TAB5 PO; +CEFT500T3 PO; +CLON-412 PO; +DOXY100T PO; +FAMO1TAB11 PO; +FLON1SPR; +GABA-279 PO; +HYDR-3911 PO; +SUCR1SUS PO
--- NOTE | 2017-01-16 17:43 | REP ---
GABINO DOPPLER EVALUATION BILATERAL UPPER EXTREMITY ARTERIES AND DEEP VENOUS SYSTEMS: Real-time ultrasound evaluation and duplex Doppler interrogation of bilateral upper extremity deep vein systems is performed. No thrombus is seen in the deep veins bilaterally. Right basilic vein measures 3 mm in diameter at the level of the upper humerus, 2 mm at the lower humerus, 1 mm in the antecubital region and forearm. Median cubital veins measures 5 mm, right cephalic vein measures 2 mm at the level of the humerus and 1 mm in the antecubital region and forearm. Left basilic vein measures 4 mm at the upper humerus, 3 mm at the lower humerus, and 1 mm in the antecubital region and forearm. It is not seen at the wrist. Left median cubital vein measures 3 mm. Left cephalic veins measures 2 mm at the upper humerus, 1 mm at the lower humerus and antecubital region and 0.5 mm in the upper forearm. It is not visualized in the distal forearm or wrist. Peak systolic velocity of right axillary artery is 109.9 cm/s, brachial artery 117.8 cm/s, radial artery 34.3 cm/s and ulnar artery 67.3 cm/s, all with triphasic wave forms. Axillary and brachial arteries measure 4 mm in diameter while the radial and ulnar arteries measure 1 mm in diameter. On the left the peak systolic velocity of the axillary artery is 86.8 cm/s with a diameter of 5 mm, brachial artery 80.3 cm/s with a diameter of 4 mm, radial artery 52.7 cm/s, with diameter 1.3 mm and ulnar artery 72 cm/s with diameter 2 mm. All arteries on the left demonstrate triphasic wave forms except ulnar artery which demonstrates biphasic wave form. Signed by Juliano Figueroa MD 01/17/2017 05:31 P
== END ==
LOC: M RAD 11:12
PROVIDERS: ATTEND Surgery Vascular Surgery
DX: N18.6 End stage renal disease (principal); M54.5 Low back pain; Z79.899 Other long term (current) drug therapy

== ENCOUNTER → 2017-01-22 | Outpatient (CLI) | payer MEDICARE, OTHER ==
--- NOTE | 2017-02-28 01:18 | ECWPNPC ---
PATIENT NAME: DARCY FRENCH : 1940 GENDER: FEMALE VISIT DATE: 01/22/2017 DISCHARGE DATE: 01/22/17 1619 VISIT LOCKED DATE TIME: PHYSICIAN: LIZABETH SIMEON RESOURCE: LIZABETH SIMEON REASON FOR APPOINTMENT 1. LOW BACK-PT MAILED PACKET SCANNED IN ALREADY HISTORY OF PRESENT ILLNESS NEW PATIENT CONSULT: 76 Y/O FEMALE REFERRED BY DR. SOTO,[facility] FOR EVALUATION OF CHRONIC LOW BACK PAIN.THIS BEGAN AFTER FALL INJURY AT AGE 37.DIDNT REALLY DO ALOT FOR BACK PAIN UNTIL ABOUT 5 YEARS AGO.STATES SHE FOUND IT DIFFICULT TO TOLERATE STANDING TO DO DISHES DUE TO LOW BACK PAIN AND LEG PAIN.DESCRIBES LOW BACK AND LEG PAIN THAT EVOLVES INTO PAIN OVER ENTIRE BACK.CURRENTLY USING HYDROCODONE 7.5/325 FOR SEVERE EPISODES.SHE USES THIS INFREQUENTLY DUE TO FEAR OF ADDICTION.REPORTS POOR SLEEP DUE TO BACK PAIN AND LEG PAIN.RATING PAIN VAS 3/10.DENIES RECENT FEVER,ILLNESS OR WEIGHT LOSS.DENIES BOWEL OR BLADDER INCONTINENCE. WHEN DID YOUR PAIN FIRST START? . BRIEFLY DESCRIBE HOW YOUR PAIN STARTED? . HOW DOES YOUR PAIN CHANGE WITH TIME? . DOES YOUR PAIN AWAKEN YOU FROM SLEEP? . HOW MANY HOURS OF SLEEP DO YOU NORMALLY GET? . ANY DIAGNOSTIC TESTING? . FACILITY WHERE TESTS WERE DONE? ____. PAIN TREATMENT TREATMENT YES CANCER HAVE YOU EVER HAD ANY TYPE OF CANCER?NO NO. PAIN SCREENING: PATIENT HAS A COMPLAINT OF ACUTE OR CHRONIC PAIN :YES FALL RISK SCREENING: SCREENING :NO FALLS IN THE PAST YEAR BLACK INVENTORY: QUESTIONNAIRE ASSESSEDTBD SCORE VALUE CALCULATED TBD CURRENT MEDICATIONS TAKING VITALIY ALLERGY 180 MG TABLET 1 TABLET NEEDED ORALLY ONCE A DAY TAKING ASPIRIN 81 MG TABLET CHEWABLE 1 TABLET ORALLY ONCE A DAY TAKING MULTIVITAMIN WOMEN - TABLET 1 TAB ORALLY DAILY TAKING FLUTICASONE PROPIONATE 50 MCG/ACT SUSPENSION 1 SPRAY IN EACH NOSTRIL NASALLY ONCE A DAY TAKING AMITRIPTYLINE HCL 10 MG TABLET 3 TABLETS ORALLY BEFORE BEDTIME TAKING BUPROPION HCL ER (XL) 150 MG TABLET EXTENDED RELEASE 24 HOUR 1 TABLET IN THE MORNING ORALLY ONCE A DAY TAKING LIDOCAINE 5 % PATCH 1 PATCH TO SKIN REMOVE AFTER 12 HOURS EXTERNALLY ONCE A DAY TAKING AMLODIPINE BESYLATE 10 MG TABLET 1 TABLET ORALLY ONCE A DAY TAKING LEVOTHYROXINE SODIUM 175 MCG TABLET 1 TABLET ON AN EMPTY STOMACH IN THE MORNING ORALLY ONCE A DAY TAKING HYDROCODONE-ACETAMINOPHEN 7.5-325 MG TABLET 1 TAB NEEDEDVV ORALLY NIGHTLY TAKING CALCITRIOL 0.25MCG CAPSULE TAKE 1 CAPSULE DAILY TAKING ATENOLOL 100MG TABLET TAKE 1 TABLET DAILY TAKING ZOCOR 40 MG TABLET 1 TABLET IN THE EVENING ORALLY ONCE A DAY TAKING HEPARIN LOCK FLUSH 100 UNIT/ML SOLUTION INTRAVENOUS NOT-TAKING PROTONIX 40 MG TABLET DELAYED RELEASE 1 TABLET ORALLY TWICE DAILY NOT-TAKING HYDRALAZINE HCL 50 MG TABLET 1 TABLET WITH FOOD ORALLY THREE TIMES A DAY, NOTES: DR HERNANDEZ NOT-TAKING BISOPROLOL FUMARATE 5 MG TABLET 1 TABLET ORALLY ONCE A DAY NOT-TAKING CARAFATE 1 GM/10ML SUSPENSION ORAL NOT-TAKING CLONIDINE HCL 0.1 MG TABLET ORAL NOT-TAKING FAMOTIDINE 20 MG TABLET 1 TAB ORALLY TWICE DAILY NOT-TAKING VITAMIN D 1000 UNIT TABLET 1 TABLET ORALLY ONCE A DAY NOT-TAKING ELIQUIS 2.5MG TABLET TAKE 1 TABLET TWICE A DAY NOT-TAKING ULORIC 40MG TABLET TAKE 1 TABLET DAILY DIRECTED NOT-TAKING LASIX 40 MG TABLET 1 TABLET ORALLY TWICE DAILY MEDICATION LIST REVIEWED AND RECONCILED WITH THE PATIENT PAST MEDICAL HISTORY CKD, POLYCYSTIC KIDNEY DISEASE -- ESRD ON DIALYSIS MORBID OBESITY ANEMIA OF CHRONIC DISEASE INSOMNIA HYPOTHYROIDISM DEPRESSION GERD HYPERLIPIDEMIA 03/16 DISTAL FEMUR FRACTURE - NONSURGICAL MGMT BO NOT ON CPAP ALLERGIES IVP DYE: ANAPHYLAXIS: ALLERGY FISH: ANAPHYLAXIS: ALLERGY BEES: ANAPHYLAXIS: ALLERGY BLUEBERRIES, PAPAYAS, AND MANGOS: ANAPHYLAXIS: ALLERGY SURGICAL TAPE: RASH: ALLERGY SURGICAL HISTORY RENAL LITHIASIS, CYST DRAINAGE 1970, 1974 HYSTERECTOMY, COMPLETE 1978 ILEOJEJUNAL BYPASS 1977 BREAST LUMP 1969 BYPASS RECONNECTED 1984 FAMILY HISTORY FATHER: , DIAGNOSED WITH CANCER MOTHER: , DIAGNOSED WITH HEART DISEASE 1 SON(S) , 1 DAUGHTER(S) . BROTHER OF COMPLICATIONS OF ARTHRITISSON IS WAITING FOR KIDNEY TRANSPLANT. SOCIAL HISTORY GENERAL: TOBACCO USE ARE YOU A:NONSMOKER ALCOHOL SCREENING POINTS4 INTERPRETATIONPOSITIVE RECREATIONAL DRUG USE DRUG USE?NO HINDUISM [id number] MONGOLIAN DRUZE LANGUAGE LANGUAGES SPOKEN:AZERBAIJANI LEARNING BARRIERS / SPECIAL NEEDS BARRIERS TO LEARNING?YES PATIENT IS VERY ILL WITH KIDNEY DISEASE HEARING IMPAIRED?NO VISION IMPAIRED?YES :CORRECTIVE LENSES COGNITIVELY IMPAIRED?NO READINESS TO LEARN?YES LEARNING PREFERENCES?NO LEARNING CAPABILITIES PRESENT?YES EMOTIONAL BARRIERS?NO SPECIAL DEVICES?YES :WALKER HUNTER GUIDE NEEDED?NO PAIN CLINIC PFS, CLERGY, PUBLIC HEALTH REFERRALS PFS REFERRAL NEEDED?NO CLERGY REFERRAL NEEDED?NO PUBLIC HEALTH REFERRAL NEEDED?NO WAS THE PROVIDER NOTIFIED OF ANY PERTINENT INFO?NO HAS THE PATIENT BEEN EDUCATED REGARDING HIS/HER PLAN OF CARE?YES HAS THE PATIENT BEEN EDUCATED REGARDING PAIN, THE RISK FOR PAIN, THE IMPORTANCE OF EFFECTIVE PAIN MANAGEMENT, AND THE PAIN ASSESSMENT PROCESS?YES PATIENT: ____. ADVANCE DIRECTIVES HEALTH CARE PROXY?NO WOULD YOU LIKE MORE INFORMATION?NO DO YOU HAVE A DNR?NO WOULD YOU LIKE MORE INFORMATION?NO LIVING WILL?NO WOULD YOU LIKE MORE INFORMATION?NO POWER OF PRODUCT DEVELOPMENT ENGINEER?NO WOULD YOU LIKE MORE INFORMATION?NO HOSPITALIZATION/MAJOR DIAGNOSTIC PROCEDURE RENAL FAILURE 09/14 GI BLEEDING, COLITIS - [place] 2003 [facility] 2017 REVIEW OF SYSTEMS REVIEWED BY: PROVIDER: LIZABETH CEJA . CONSTITUTIONAL: ANY CHANGE IN YOUR MEDICAL CONDITION? NO . CHILLS NO . FEVER NO . INFECTION: DO YOU HAVE NEW INFECTIONS? NO . DO YOU HAVE HISTORY OF MRSA? NO . MUSCULOSKELETAL: ANY NEW PATTERNS OF PAIN OR NUMBNESS? NO . SYTEMIC LUPUS NO . GASTROENTEROLOGY: ANY NEW CHANGE IN BOWEL CONTROL? YES, CONSTIPATED . BARRETTS ESOPHAGUS NO . CIRRHOSIS NO . HEPATITIS NO . LIVER FAILURE NO . ACID REFLUX YES . UNEXPLAINED WEIGHT LOSS NO . GENITOURINARY: ANY NEW CHANGE IN BLADDER CONTROL? YES, HAS CHRONIC RENAL DISEASE AND ON DIALYSIS . IS THERE A CHANCE YOU COULD BE ? NO . HEMATOLOGY/LYMPH: DO YOU TAKE ANY BLOOD THINNERS? (FOR EXAMPLE- COUMADIN, PLAVIX, AGGRENOX, PLATEL, PRADAXA, OR XARELTO) YES, HEPARIN . WHEN WAS YOUR LAST DOSE? DATE:01/22/17 TIME: . LOW PLATELET COUNT NO . SICKLE CELL DISEASE NO . VON WILLIEBRANDS NO . FACTOR V LEIDEN NO . THALLASEMIA NO . ANEMIA NO . EASY BRUISING NO . NEUROLOGY: HAVE YOU FALLEN IN THE PAST 6 MONTHS? YES . ANY NEW EXTREMITY NUMBNESS OR WEAKNESS? NO . HEAD INJURY NO . DEMENTIA NO . CEREBRAL PALSY NO . MULTIPLE SCLEROSIS NO . DIZZINESS NO . HEADACHE NO . STROKES NO . VERTIGO NO . CARDIOLOGY: DO YOU HAVE A PACEMAKER OR DEFIBRILLATOR? NO . ANGINA NO . HEART ATTACK NO . HEART SURGERY NO . CONGESTIVE HEART FAILURE/FLUID OVERLOAD NO . CHEST PAIN NO . HIGH BLOOD PRESSURE ON MEDICATION(S) . IRREGULAR HEART BEAT NO . RESPIRATORY: HAVE YOU BEEN SICK IN THE PAST WEEK? NO . FEVER NO . FLU LIKE SYMPTOMS? NO . CPAP NO . BYPAP NO . ASTHMA NO . EMPHYSEMA NO . CHRONIC LUNG DISEASES YES, HAS SLEEP APNEA . SHORTNESS OF BREATH ON EXERTION NO . DO YOU USE ANY TYPE OF TOBACCO (SMOKE, SMOKELESS, CHEW)? NO . COUGH NO . SNORING NO . INTEGUMENTARY: DO YOU HAVE ANY RASHES OR OPEN SORES? NO . ALLERGIC/IMMUNO: ARE YOU ALLERGIC TO SHELLFISH OR IV DYE? YES . ANY NEW ALLERGIES? NO . PSYCHIATRIC: DO YOU HAVE THOUGHTS OF HURTING YOURSELF OR SOMEONE ELSE? NO . ARE YOU ABUSED, NEGLECTED, OR IN AN UNSAFE ENVIRONMENT? NO . ENDOCRINOLOGY: ARE YOU DIABETIC? NO . THYROID DISORDER HYPOTHYROID . OTHER: DO YOU NEED ANY PRESCRIPTIONS? NO . IF YES, PLEASE LIST: ____ . ANY NEW PROBLEMS WITH YOUR MEDICATIONS? NO . WHEN DID YOU LAST EAT? ____ . WHEN DID YOU LAST DRINK? ____ . WHAT DID YOU LAST DRINK? ____ . NAME OF PERSON DRIVING YOU HOME? ____ . DO YOU HAVE ANY OTHER QUESTIONS OR CONCERNS NO . VITAL SIGNS WT 227.8 LBS, HT 5'7", BMI 35.67 INDEX, BP 132/64 MM HG, HR 65 /MIN, RR 18 /MIN, TEMP 98.7 F, OXYGEN SAT % 97%, SAFE IN ENV? (Y/N) YES, NA INITIALS AW 1432, REVIEWED BY: KAYDEN. EXAMINATION GENERAL EXAMINATION: GENERAL APPEARANCE:ALERT,ORIENTED. PSYCHAFFECT NORMAL. HEENT:NORMOCEPHALIC,PER. NECK:TRACHEA MIDLINE. NO CERVICAL OR SUPRACLAVICULAR LYMPHADENOPATHY NOTED. LUNGS:LUNG CHRISTENSEN ARE CLEAR TO AUSCULTATION BILATERALLY. GOOD MOVEMENT OF AIR. HEART:S1, S2 IN A REGULAR RATE AND RHYTHM. NO SIGNIFICANT MURMURS, RUBS OR GALLOPS NOTED. ABDOMEN:SOFT, BOWEL SOUNDS PRESENT. MUSCULOSKELETAL:MUSCLE STRENGTH TESTING 5/5 BILATERAL UPPER AND LOWER EXTREMITIES. LUMBAR SACRAL SPINEPALPATION: + FOR PAIN OVER L/S SPINE. + FOR PAIN OVER L/S PARSPINALS. NEUROLOGIC EXAM:DTRS 1-2+ IN ALL 4 EXTREMITIES. ASSESSMENTS NEUROPATHY - G62.9 (PRIMARY) LUMBAGO OF MULTIPLE SITES IN SPINE WITH SCIATICA - M54.40 TREATMENT NEUROPATHY START GABAPENTIN CAPSULE, 100 MG, DIRECTED, ORALLY, BID, 30 DAY(S), 60, REFILLS 2 PREVENTIVE MEDICINE PAIN CLINIC TEACHING: MEDICATIONS GABAPENTIN TEACHING DONE. QUESTIONS ANSWERED AND PATIENT VERBALIZES UNDERSTANDING. ADDITIONAL PRINT-OUT GIVEN TO PATIENT ABOUT GABAPENTIN.. PROCEDURE CODES FA211 ESTABILISHED PATIENT [facility] CHARGE G8730 PAIN ASSESS POS TOOL F/U PLAN DOC G8427 DOC MEDS VERIFIED W/PT OR RE DISPOSITION & COMMUNICATION FOLLOW UP 4 WEEKS ELECTRONICALLY SIGNED BY BRENNA ANTOINE ON 02/25/2017 AT 06:44 PM EST DISCLAIMER : THIS IS A VISIT SUMMARY EXTRACTED FROM THE [employer] CHART. IT IS NOT A COPY OF THE [employer] PROGRESS NOTE. PABLO
== END ==
LOC: M PAIN 14:15
PROVIDERS: ATTEND Nurse Practitioner Family
DX: G62.9 Polyneuropathy, unspecified (principal); M54.40 Lumbago with sciatica, unspecified side; G89.29 Other chronic pain; I12.0 Hypertensive chronic kidney disease with stage 5 chronic kidney disease or end stage renal disease; E03.9 Hypothyroidism, unspecified; K21.9 Gastro-esophageal reflux disease without esophagitis; G47.33 Obstructive sleep apnea (adult) (pediatric); N18.6 End stage renal disease; Z99.2 Dependence on renal dialysis; Z79.82 Long term (current) use of aspirin; Z91.013 Allergy to seafood; Z91.030 Bee allergy status; Z91.018 Allergy to other foods; Z91.041 Radiographic dye allergy status; Z91.09 Other allergy status, other than to drugs and biological substances

== ENCOUNTER → 2017-03-07 | Outpatient (CLI) | payer MEDICARE, OTHER | LOC: M PAIN 13:45 | DX: G89.29 Other chronic pain (principal); M54.40 Lumbago with sciatica, unspecified side; G62.9 Polyneuropathy, unspecified; N18.9 Chronic kidney disease, unspecified; E66.01 Morbid (severe) obesity due to excess calories; Z68.33 Body mass index [BMI] 33.0-33.9, adult; G47.00 Insomnia, unspecified; G47.33 Obstructive sleep apnea (adult) (pediatric); E03.9 Hypothyroidism, unspecified; F32.9 Major depressive disorder, single episode, unspecified; K21.9 Gastro-esophageal reflux disease without esophagitis; E78.5 Hyperlipidemia, unspecified; L23.1 Allergic contact dermatitis due to adhesives; Z91.018 Allergy to other foods; Z91.030 Bee allergy status; Z91.041 Radiographic dye allergy status; Z79.82 Long term (current) use of aspirin; Z79.899 Other long term (current) drug therapy | CPT/HCPCS: G0463 ==

== ENCOUNTER → 2017-04-23 | Outpatient (CLI) | payer MEDICARE, OTHER | LOC: M SLEEP 19:44 | DX: G47.33 Obstructive sleep apnea (adult) (pediatric) (principal) | CPT/HCPCS: 95811 ==

== ENCOUNTER → 2017-05-21 | Outpatient (REF) | payer MEDICARE, OTHER ==
[2017-05-21 14:02] LABS: CHOLESTEROL LEVEL 195 MG/DL (<200); CHOLESTEROL RISK RATIO 2.826 (<5); FREE T4 1.02 NG/DL (0.76-1.46); HDL CHOLESTEROL 69 MG/DL (>40); LDL CHOLESTEROL 107.8 MG/DL (<100); NON-HDL-C 126 MG/DL; TRIGLYCERIDES LEVEL 91 MG/DL (<150)
== END ==
LOC: M SFHCADAM 12:18
DX: E78.5 Hyperlipidemia, unspecified (principal); R53.81 Other malaise
CPT/HCPCS: 84443

== ENCOUNTER → 2017-05-23 | Outpatient (REF) | payer MEDICARE, OTHER ==
[2017-05-23 12:30] LABS: AMORPHOUS SEDIMENT SMALL (NEGATIVE); APPEARANCE, URINE CLOUDY (CLEAR); BACTERIA, URINE AUTO 3+ (NEGATIVE); BILIRUBIN, URINE AUTO NEGATIVE (NEGATIVE); BLOOD, URINE BLOOD NEGATIVE (NEGATIVE); COLOR, URINE AMBER (YELLOW); GLUCOSE, URINE (UA) AUTO NEGATIVE (NEGATIVE); KETONE, URINE AUTO TRACE mg/dL (NEGATIVE); LEUKOCYTE ESTERASE, URINE AUTO 3+ (NEGATIVE); MUCUS, URINE SMALL (NEGATIVE); NITRITE, URINE AUTO NEGATIVE (NEGATIVE); PROTEIN, URINE AUTO 2+ mg/dL (NEGATIVE); RBC, URINE AUTO 7 /HPF (0-3); SPECIFIC GRAVITY URINE AUTO 1.014 (1.002-1.035); SQUAMOUS EPITHELIAL CELL UR AU 4 /HPF (0-6); WBC, URINE AUTO TNTC /HPF (0-3)
== END ==
LOC: M SFHCADAM 12:03
DX: R30.0 Dysuria (principal)
CPT/HCPCS: 81001

== ENCOUNTER → 2017-07-12 | Outpatient (REF) | payer MEDICARE, OTHER | LOC: M SFHCADAM 10:02 | DX: R10.9 Unspecified abdominal pain (principal) ==

== ENCOUNTER 2017-07-16 10:54 | Day surgery (SDC) | payer MEDICARE, OTHER ==
[2017-07-16 12:01] LABS: POTASSIUM SERUM 4.7 MEQ/L (3.5-5.1)
[2017-07-16] MEDS ORDERED: NS 1,000 ML IV (13:00)
[2017-07-16] MEDS: LIDOCAINE 1% SDV INJ 30 ML VIAL As Ordered (13:14)
[2017-07-16] MEDS ORDERED: fentaNYL 100 MCG/2 ML INJECTION (J3010) As Ordered (13:16)
[2017-07-16] MEDS ORDERED: PROPOFOL 200 MG/20 ML VIAL As Ordered (13:16)
[2017-07-16] MEDS ORDERED: MIDAZOLAM INJ 2 MG/2 ML VIAL (J2250) As Ordered (13:17)
[2017-07-16] MEDS ORDERED: ROCURONIUM BROMIDE 50 MG/5 ML VIAL As Ordered (13:20)
[2017-07-16] MEDS: HEPARIN SOD (PORCINE) 5000 UNITS/ML VIAL As Ordered (14:45)
[2017-07-16] MEDS: BUPIVACAINE HCL 0.5% 30 ML VIAL As Ordered (15:00)
[2017-07-16] MEDS ORDERED: GLYCOPYRROLATE INJ 0.2 MG/ML 2 ML VIAL As Ordered ×2 (15:03→15:07)
[2017-07-16] MEDS ORDERED: NEOSTIGMINE 10 MG/10 ML VIAL (J2710) As Ordered (15:07)
[2017-07-16] MEDS ORDERED: ONDANSETRON 4MG/2ML VIAL (J2405) As Ordered (15:10)
[2017-07-16] MEDS ORDERED: SUGAMMADEX SODIUM 500 MG/5 ML VIAL (BRIDION) As Ordered (15:12)
[2017-07-16] MEDS: ISOVUE-300 61% 50ML VIAL (Q9967) As Ordered (15:18)
[2017-07-16] MEDS ORDERED: ONDANSETRON 4MG/2ML VIAL (J2405) IV (16:00)
[2017-07-16] MEDS ORDERED: LR 1,000 ML IV (16:00)
[2017-07-16] MEDS ORDERED: fentaNYL 100 MCG/2 ML INJECTION (J3010) IV (16:00)
== END 2017-07-16 17:35 | disposition home or self-care (01) ==
LOC: M SDC 10:54
DX: N18.6 End stage renal disease (principal); N73.6 Female pelvic peritoneal adhesions (postinfective); I12.9 Hypertensive chronic kidney disease with stage 1 through stage 4 chronic kidney disease, or unspecified chronic kidney disease; E78.5 Hyperlipidemia, unspecified; M10.9 Gout, unspecified; D64.9 Anemia, unspecified; F32.9 Major depressive disorder, single episode, unspecified; Z86.73 Personal history of transient ischemic attack (TIA), and cerebral infarction without residual deficits; Z91.040 Latex allergy status; Z91.013 Allergy to seafood; Z79.82 Long term (current) use of aspirin; Z79.899 Other long term (current) drug therapy; Z98.84 Bariatric surgery status
CPT/HCPCS: 49320

== ENCOUNTER → 2017-07-17 | Outpatient (REF) | payer MEDICARE, OTHER ==
[2017-07-17 20:15] LABS: APPEARANCE, URINE CLOUDY (CLEAR); BACTERIA, URINE AUTO 3+ (NEGATIVE); BILIRUBIN, URINE AUTO NEGATIVE (NEGATIVE); BLOOD, URINE BLOOD NEGATIVE (NEGATIVE); COLOR, URINE AMBER (YELLOW); GLUCOSE, URINE (UA) AUTO NEGATIVE (NEGATIVE); KETONE, URINE AUTO NEGATIVE (NEGATIVE); LEUKOCYTE ESTERASE, URINE AUTO 1+ (NEGATIVE); NITRITE, URINE AUTO NEGATIVE (NEGATIVE); PROTEIN, URINE AUTO 2+ mg/dL (NEGATIVE); RBC, URINE AUTO 1 /HPF (0-3); SPECIFIC GRAVITY URINE AUTO 1.015 (1.002-1.035); SQUAMOUS EPITHELIAL CELL UR AU 2 /HPF (0-6); WBC, URINE AUTO 47 /HPF (0-3)
== END ==
LOC: M SFHCADAM 18:40
DX: R39.9 Unspecified symptoms and signs involving the genitourinary system (principal)
CPT/HCPCS: 81001

== ENCOUNTER → 2017-09-05 | Outpatient (REF) | payer MEDICARE, OTHER | LOC: M SFHCADAM 19:21 | DX: R39.9 Unspecified symptoms and signs involving the genitourinary system (principal) | CPT/HCPCS: 87186 ==

== ENCOUNTER → 2017-09-19 | Outpatient (CLI) | payer MEDICARE, OTHER | LOC: M SLEEP 19:47 | DX: G47.31 Primary central sleep apnea (principal) | CPT/HCPCS: 95811 ==

== ENCOUNTER → 2017-10-25 | Outpatient (REF) | payer MEDICARE, OTHER ==
[2017-10-25 13:16] LABS: APPEARANCE, URINE CLOUDY (CLEAR); BACTERIA, URINE AUTO 1+ (NEGATIVE); BILIRUBIN, URINE AUTO NEGATIVE (NEGATIVE); BLOOD, URINE BLOOD NEGATIVE (NEGATIVE); COLOR, URINE YELLOW (YELLOW); GLUCOSE, URINE (UA) AUTO NEGATIVE (NEGATIVE); KETONE, URINE AUTO NEGATIVE (NEGATIVE); LEUKOCYTE ESTERASE, URINE AUTO 2+ (NEGATIVE); MUCUS, URINE SMALL (NEGATIVE); NITRITE, URINE AUTO NEGATIVE (NEGATIVE); PROTEIN, URINE AUTO 1+ mg/dL (NEGATIVE); RBC, URINE AUTO 0 /HPF (0-3); SQUAMOUS EPITHELIAL CELL UR AU 3 /HPF (0-6); WBC, URINE AUTO 36 /HPF (0-3)
== END ==
LOC: M SFHCADAM 10:48
DX: R31.9 Hematuria, unspecified (principal)
CPT/HCPCS: 81001

== ENCOUNTER → 2017-11-11 | Outpatient (CLI) | payer MEDICARE, OTHER ==
[~2017-11-11] MED LIST changes: -ALLE180T33 PO; -ALLO10TA PO; -AMIT10TA PO; -AMLO10TA2 PO; -AMLO5TAB2 PO; -ASPI1TAB PO; -ASPI81TA85 PO; -ASPI81TAEC PO; -ATEN100T PO; -ATEN50TA2 PO; -BISO5TAB5 PO; -BUPR150T3 PO; -BUPR300T34 PO; -CALC1CAP31 PO; -CEFD1CAP8 PO; -CEFT500T3 PO; -CEPH250T PO; -CLON-412 PO; -CLONI1TA PO; -COLC1TAB14 PO; -DIOV80TA3 PO; -DOXY100T PO; -ELIQ5TAB PO; -FAMO1TAB11 PO; -FAMO20TA PO; -FEBU40TA PO; -FLON1SPR; -FURO40TA2 PO; -GABA-279 PO; -HYDR-3716 PO; -HYDR-3911 PO; -HYDR10TAB PO; -HYDR12CA PO; -HYDR50TA PO; +ISOVUE-300 61% 50ML VIAL (Q9967) As Ordered; -KEFL250C11 PO; -LEVO125T4 PO; -LEVO150T7 PO; -LIDO5TD TD; -MACR100C43 PO; -MELO7.5T7 PO; +MIDAZOLAM INJ 2 MG/2 ML VIAL (J2250) As Ordered; -NASA1SPR; -NEXI40CA PO; +NORCO, ANEXSIA 5/325MG TABLET (HYDROcodone/ACETAMINOPHEN) As Ordered; -NYST1POW9 TOP; -PANT40TA2 PO; -SIMV40TA2 PO; -SUCR10SS PO; -SUCR1SUS PO; -SYNT175T2 PO; -TOLT1CAP4 PO; -VALS160T PO; -VALS1TAB46 PO; -VALS1TAB47 PO; -VITA100066 PO; -VITA100067 PO; -VITA100T PO; -VITMTA PO; -ZOLP10TA2 PO; +fentaNYL 100 MCG/2 ML INJECTION (J3010) As Ordered
== END | disposition home or self-care (01) ==
LOC: M IRPRO 06:18
DX: T82.858A Stenosis of other vascular prosthetic devices, implants and grafts, initial encounter (principal); N18.6 End stage renal disease
CPT/HCPCS: 36832

== ENCOUNTER 2017-11-20 15:24 | Emergency (ER) | payer MEDICARE, OTHER ==
[2017-11-20] MEDS: MORPHINE 2 MG/ML 1ML SYRINGE (J2270) IV (17:49)
[2017-11-20] MEDS: PERCOCET 5MG/325MG TAB PO (18:45)
[2017-11-20] MEDS: OXYCODONE/APAP 5MG/325MG(BULK FOR ED) 1 TABLET PO (19:54)
== END 2017-11-20 20:08 | disposition home or self-care (01) ==
LOC: M ED 15:24
DX: S00.83XA Contusion of other part of head, initial encounter (principal); W01.0XXA Fall on same level from slipping, tripping and stumbling without subsequent striking against object, initial encounter; Y92.480 Sidewalk as the place of occurrence of the external cause; E03.9 Hypothyroidism, unspecified; N18.6 End stage renal disease; Z99.2 Dependence on renal dialysis; D64.9 Anemia, unspecified; F33.9 Major depressive disorder, recurrent, unspecified; K21.9 Gastro-esophageal reflux disease without esophagitis; E78.5 Hyperlipidemia, unspecified; G89.29 Other chronic pain; M54.9 Dorsalgia, unspecified; Z79.82 Long term (current) use of aspirin; Z88.5 Allergy status to narcotic agent; Z88.8 Allergy status to other drugs, medicaments and biological substances; Z91.013 Allergy to seafood; Z91.018 Allergy to other foods; Z91.040 Latex allergy status; Z91.048 Other nonmedicinal substance allergy status
CPT/HCPCS: J2270

== ENCOUNTER → 2018-01-15 | Outpatient (CLI) | payer MEDICARE, OTHER ==
[~2018-01-15] MED LIST changes: +LIDOCAINE 2% MDV 20 ML VIAL As Ordered; -MIDAZOLAM INJ 2 MG/2 ML VIAL (J2250) As Ordered; -NORCO, ANEXSIA 5/325MG TABLET (HYDROcodone/ACETAMINOPHEN) As Ordered; -fentaNYL 100 MCG/2 ML INJECTION (J3010) As Ordered
== END | disposition home or self-care (01) ==
LOC: M IRPRO 09:08
DX: T82.590A Other mechanical complication of surgically created arteriovenous fistula, initial encounter (principal); N18.6 End stage renal disease; Z99.2 Dependence on renal dialysis
CPT/HCPCS: 36901

== ENCOUNTER → 2018-02-12 | Outpatient (REF) | payer MEDICARE, OTHER ==
[2018-02-12 14:13] LABS: FREE T4 1.15 NG/DL (0.76-1.46)
== END ==
LOC: M SFHCADAM 09:01
DX: E03.9 Hypothyroidism, unspecified (principal)
CPT/HCPCS: 84443

== ENCOUNTER → 2018-02-12 | Outpatient (REF) | payer MEDICARE, OTHER | LOC: M SFHCADAM 13:29 | DX: R31.9 Hematuria, unspecified (principal) | CPT/HCPCS: 87186 ==

== ENCOUNTER → 2018-03-10 | Outpatient (CLI) | payer MEDICARE, OTHER ==
[~2018-03-10] MED LIST changes: +ALLE180T33 PO; +ALLO10TA PO; +AMIT10TA PO; +AMLO10TA4 PO; +AMLO5TAB4 PO; +ASPI1TAB PO; +ASPI81TA85 PO; +ASPI81TAEC PO; +ATEN100T PO; +ATEN50TA2 PO; +BISO5TAB5 PO; +BUPR150T3 PO; +BUPR300T34 PO; +CALC1CAP31 PO; +CEFD1CAP8 PO; +CEFT500T3 PO; +CEPH250T PO; +CLON-412 PO; +CLONI1TA PO; +COLC1TAB14 PO; +DIOV80TA3 PO; +DOXY100T PO; +ELIQ5TAB PO; +FAMO1TAB11 PO; +FAMO20TA PO; +FEBU40TA PO; +FLON1SPR; +FURO40TA2 PO; +GABA-1171 PO; +HYDR-3716 PO; +HYDR-3911 PO; +HYDR10TAB PO; +HYDR12CA PO; +HYDR50TA PO; -ISOVUE-300 61% 50ML VIAL (Q9967) As Ordered; +ISOVUE-300 61% 50ML VIAL (Q9967) As Ordered ONE; +KEFL250C11 PO; +LEVO125T4 PO; +LEVO150T7 PO; +LIDO5TD TD; -LIDOCAINE 2% MDV 20 ML VIAL As Ordered; +LIDOCAINE 2% MDV 20 ML VIAL As Ordered ONE; +MACR100C43 PO; +MELO7.5T7 PO; +MIDAZOLAM INJ 2 MG/2 ML VIAL (J2250) As Ordered ONE; +NASA1SPR; +NEXI40CA PO; +NYST1POW9 TOP; +PANT40TA3 PO; +POLY1POW4; +RENATAB5; +RENV2TAB; +SIMV40TA2 PO; +SUCR10SS PO; +SUCR1SUS PO; +SUCR1TA PO; +SYNT175T2 PO; +TOLT2CAP4 PO; +VALS160T PO; +VALS1TAB46 PO; +VALS1TAB47 PO; +VITA100066 PO; +VITA100067 PO; +VITA100T PO; +VITMTA PO; +ZOLP10TA2 PO; +diphenhydrAMINE INJ 50MG/ML VIAL (J1200) As Ordered ONE; +fentaNYL 100 MCG/2 ML INJECTION (J3010) As Ordered ONE
--- NOTE | 2018-03-20 08:29 | REPIR ---
DATE OF PROCEDURE: 03/10/2018 ATTENDING SURGEON: Dr. Jay Nicolas LIQUID YEAST SUPERVISOR: Cherie Eaton and Sofia Kim PREOPERATIVE DIAGNOSIS: End-stage renal disease, dysfunctional left brachiocephalic arteriovenous fistula. POSTOPERATIVE DIAGNOSIS: End-stage renal disease, dysfunctional left brachiocephalic arteriovenous fistula. PROCEDURE: Left brachiocephalic arteriovenous fistulogram, retrograde left brachial artery angiogram. INDICATION: The patient is a 77-year-old female who underwent creation of a left brachiocephalic arteriovenous fistula which has been unable to be used for dialysis access. The patient will undergo a fistulogram with possible angioplasty stent and/or atherectomy. Risks, benefits and alternative treatment options were discussed with the patient. ANESTHESIA: Local with 1 mL of 2% lidocaine. FLUORO TIME: 0.1 minutes. CONTRAST: 3 mL. HEPARIN: None. COMPLICATIONS: None. DRAINS: None. IMPLANTS: None. DESCRIPTION OF PROCEDURE: The patient was taken to the angiography suite, placed supine on the angiography room table and then the left upper extremity was prepped and draped in a standard surgical fashion. The left brachiocephalic arteriovenous fistula was cannulated with a micropuncture needle after anesthetizing the overlying skin with 2% lidocaine. The micropuncture wire was advanced through the micropuncture needle which was upsized to a micropuncture sheath. A fistulogram was performed and a retrograde brachial artery angiogram was performed showing no intervention was required. The fistula was of adequate size for hemodialysis access. The sheath was removed and manual compression applied at the puncture site for hemostasis. Dressings were then applied. The patient tolerated the procedure well. All instrument, sponge and needle counts were correct at the end of the case. There were no complications. Dr. Nicolas was present for and directed the entire case. The patient was transferred to the holding area and subsequently discharged in stable condition. RADIOLOGY SUPERVISION INTERPRETATION: The cephalic vein was widely patent from the puncture site at the antecubital fossa to the central venous system and is of adequate size for hemodialysis access. If there is continued difficulty with accessing the fistula, the patient may require superficial dilation of the cephalic vein for better ease of cannulation. The patient will continue to try to use her fistula for dialysis access.
== END | disposition home or self-care (01) ==
LOC: M IRPRO 09:49
PROVIDERS: ATTEND Surgery Vascular Surgery
DX: T82.590A Other mechanical complication of surgically created arteriovenous fistula, initial encounter (principal); N18.6 End stage renal disease; Z99.2 Dependence on renal dialysis
CPT/HCPCS: 36901; C1894; J1200; Q9967

== ENCOUNTER 2018-04-26 07:41 | Emergency (ER) | payer MEDICARE, OTHER ==
[~2018-04-26] VITALS: Ht 170.2 cm; Wt 95.5 kg
[~2018-04-26 07:41] MED LIST changes: -AMLO10TA4 PO; +AMLO10TA5 PO; -AMLO5TAB4 PO; +AMLO5TAB6 PO; -ISOVUE-300 61% 50ML VIAL (Q9967) As Ordered ONE; -LIDOCAINE 2% MDV 20 ML VIAL As Ordered ONE; -MIDAZOLAM INJ 2 MG/2 ML VIAL (J2250) As Ordered ONE; -POLY1POW4; +POLY33503; -VITA100T PO; +VITA1TAB22 PO; -diphenhydrAMINE INJ 50MG/ML VIAL (J1200) As Ordered ONE; -fentaNYL 100 MCG/2 ML INJECTION (J3010) As Ordered ONE
--- NOTE | 2018-04-26 08:40 | REP ---
Clinical: Cough and dyspnea. Comparison: 02/02/2017. Findings: Ill-defined right perihilar opacities suggest the possibility of adenopathy and atelectasis. Left lower lobe consolidation suggests pneumonia versus partial left lower lobe collapse and associated pleural effusion. No pneumothorax. The cardiac silhouette is normal. A double-lumen tunneled catheter is identified with tips in the SVC. Skeletal structures are intact. Impression: 1. Right perihilar opacities suggesting adenopathy and atelectasis. 2. Left lower lobe opacity suggesting consolidation/pneumonia versus collapse. 3. Possible small left effusion. Electronically Signed by Carmine Johnson MD 04/26/2018 08:31 A
[2018-04-26 08:53] LABS: BASO % 0.4 % (0.0-1.0); EOS # 0.2 10^3/uL (0.0-0.50); EOS % 1.7 % (0.0-3.0); HEMATOCRIT 38.8 % (36.0-47.0); HEMOGLOBIN 12.3 g/dl (12.0-15.5); LYMPH # 0.6 10^3/uL (1.5-4.5); MEAN CORPUSCULAR HEMOGLOBIN 31.3 pg (27.0-33.0); MEAN CORPUSCULAR HGB CONC 31.7 g/dl (32.0-36.5); MEAN CORPUSCULAR VOLUME 98.7 fl (80.0-96.0); MONO # 0.8 10^3/uL (0.0-0.8); NEUTROPHILS # 8.2 10^3/uL (1.8-7.7); NEUTROPHILS % 83.6 % (36.0-66.0); PLATELET COUNT, AUTOMATED 232 10^3/uL (150-450); RED BLOOD COUNT 3.93 10^6/uL (4.00-5.40); WHITE BLOOD COUNT 9.8 10^3/uL (4.0-10.0)
--- NOTE | 2018-04-26 09:20 | REP ---
Clinical: Possible right hilar mass. Comparison: X-ray dated 04/26/2018. Technique: Axial noncontrast images from the thoracic inlet to the upper abdomen eighth coronal and sagittal re-formations. Findings: Moderate pulmonary vascular congestion and interstitial edema noted including prominent pulmonary vasculature, increased interstitial markings, small to moderate bilateral pleural effusions (right greater than left) and bibasilar atelectasis (left greater than right). No pneumothorax. The mediastinum demonstrates cardiomegaly with atherosclerotic changes to the thoracic aorta and coronary arteries. No pericardial effusion. No obvious adenopathy is appreciated and the suspected right hilar mass / adenopathy corresponds to prominent right pulmonary vasculature related to the above-mentioned pulmonary edema. A double-lumen dialysis catheter is identified with tip in the SVC. Musculoskeletal structures are intact without focal osseous abnormality. Limited upper abdomen demonstrates polycystic kidney disease along with scattered benign appearing hepatic cysts up to 3 cm. Impression: 1. Moderate pulmonary edema including pleural effusions (right greater than left) and bibasilar atelectasis (left greater than right). Electronically Signed by Carmine Johnson MD 04/26/2018 09:12 A
[2018-04-26 09:30] LABS: INFLUENZA A AMPLIFICATION NEGATIVE (NEGATIVE); INFLUENZA B AMPLIFICATION NEGATIVE (NEGATIVE)
[2018-04-26 10:17] LABS: BLOOD UREA NITROGEN 38 MG/DL (7-18); CALCIUM LEVEL 8.8 MG/DL (8.8-10.2); CARBON DIOXIDE LEVEL 25 MEQ/L (21-32); CHLORIDE LEVEL 106 MEQ/L (98-107); CK-MB VALUE MASS < 1.0 NG/ML (<3.6); CPK CREATINE PHOSPHOKINASE 26 U/L (26-192); CREATININE FOR GFR 4.02 MG/DL (0.55-1.30); GLOMERULAR FILTRATION RATE 11.6 (>39); GLUCOSE, FASTING 103 MG/DL (70-100); MB/CK RELATIVE INDEX 3.85 (< OR =4); POTASSIUM SERUM 5.5 MEQ/L (3.5-5.1); SODIUM LEVEL 142 MEQ/L (136-145); TROPONIN I < 0.02 NG/ML (< 0.10)
[2018-04-26] MEDS ORDERED: ACETAMINOPHEN TAB 650MG DOSE (2X325MG) PO ONE (11:30)
[2018-04-26 11:31] VITALS: BP 134/75
--- NOTE | 2018-04-27 09:16 | ECGEPIP ---
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
== END 2018-04-26 11:55 | disposition home or self-care (01) ==
LOC: M ED 07:41
DX: E87.70 Fluid overload, unspecified (principal); J90 Pleural effusion, not elsewhere classified; N18.6 End stage renal disease; Z99.2 Dependence on renal dialysis; R94.31 Abnormal electrocardiogram [ECG] [EKG]; E66.01 Morbid (severe) obesity due to excess calories; G47.33 Obstructive sleep apnea (adult) (pediatric); K27.9 Peptic ulcer, site unspecified, unspecified as acute or chronic, without hemorrhage or perforation; Z87.442 Personal history of urinary calculi; Z88.5 Allergy status to narcotic agent; Z88.8 Allergy status to other drugs, medicaments and biological substances; Z91.048 Other nonmedicinal substance allergy status; Z91.041 Radiographic dye allergy status; Z91.018 Allergy to other foods; Z91.013 Allergy to seafood; Z79.899 Other long term (current) drug therapy; Z79.82 Long term (current) use of aspirin

== ENCOUNTER → 2018-05-16 | Outpatient (CLI) | payer MEDICARE, OTHER ==
[~2018-05-16] MED LIST changes: +AMIT50TA PO; +AURY1TAB PO; +COLA100C5 PO; +DOCU100C16 PO; +GABA-843 PO; +LIDOCAINE 2% MDV 20 ML VIAL As Ordered ONE; +MIRA33504 PO; +OMEP40CA2 PO; +PATIENT COMMENT; +RENATAB5 PO; +RENV2TAB PO; +SENN8.6T7 PO
--- NOTE | 2018-05-26 16:57 | ROOPDOC ---
[facility] Report Of Operation Report of Operation DATE OF PROCEDURE: 05/16/2018 PREPROCEDURE DIAGNOSES: End-stage renal disease, functioning left brachiocephalic autogenous arteriovenous fistula. POSTPROCEDURE DIAGNOSES: End-stage renal disease, functioning left brachiocephalic autogenous arteriovenous fistula. PROCEDURE: Right internal jugular vein tunneled central venous catheter removal. SURGEON: Dr. Jay Nicolas M.D. DECK MECHANIC: None INDICATION: Patient is 77-year-old female with end-stage renal disease who initially dialyzes through a right internal jugular vein tunneled central venous catheter but now has a functioning left brachiocephalic autogenous arteriovenous fistula. Patient will undergo removal of the right internal jugular vein tunneled central venous catheter. The procedure was explained and described to the patient in detail including drawing of pictures describing the procedure and pertinent anatomy associated with the procedure. Risks, benefits and alterna tive treatment options were discussed with the patient. Benefits included but were not limited to removal of the catheter with reduction in complications from central venous catheters. Alternative treatment options included but were not limited to no intervention. Risks included but were not limited to infection, bleeding, pneumothorax, hemothorax, possible need for open surgical intervention, adverse or allergic reaction to the local anesthetic, adverse or allergic reaction to the material used for surgical prepping and draping, nerve injury, cerebrovascular accident, myocardial infarction, pulmonary embolus, deep venous thrombosis, poor satisfaction, poor outcome, poor results, loss of limb and loss of life. Risks of not performing the procedure included but were not limited to infection, bleeding, central venous stenosis and/or thrombosis, loss of life and poor outcome. Patient's questions were answered. Patient voices understanding of these risks, benefits and alternative treatment options. Patient voices acceptance of these risks, benefits and alternative treatment options and consents to proceed with right internal jugular vein tunneled central venous catheter removal. There were no promises or guarantees made to the patient regarding the procedure or outcome. ANESTHESIA: Local with 10 mL of 2% lidocaine ESTIMATED BLOOD LOSS: 5 mL IV FLUIDS: None DRAINS: None CONTRAST: None COMPLICATIONS: None IMPLANTS: None SPECIMENS: None PROCEDURE: Patient was prepped and draped in a standard surgical fashion. A time out was completed by myself and all the team members in the room involved at the initiation of the procedure, confirming the correct patient , procedure and laterality. Manual traction was applied to the catheter which did not release the subcutaneous cuff spontaneously. The skin and subcutaneous tissue overlying the catheter and tunnelled subcutaneous cuff were then anesthetized with 2% lidocaine. The cuff was then sharply dissected free via the entry site in the right chest. The catheter was then removed and manual compression applied at the exit site in the right chest and at the right internal jugular vein entry site for hemostasis. Once hemostasis was achieved, dressings were then applied. Patient tolerated the procedure well and was in stable condition at the end of the removal of the tunneled central venous catheter. All instrument, sponge and needle counts were correct at the end of the case. There were no complications. Dr. Nicolas was present for and directed the entire case. Patient was discharged home in stable condition. The procedure and results were discussed with the patient at the end of the case with all of their questions being answered. The procedure and the results were discussed with the patient's significant other at the end of the case with all of their questions being answered. Jett Nicolas MD May 26, 2018 16:57
== END | disposition home or self-care (01) ==
LOC: M IRPRO 08:55
PROVIDERS: ATTEND Internal Medicine Nephrology
DX: Z45.2 Encounter for adjustment and management of vascular access device (principal); N18.6 End stage renal disease; Z99.2 Dependence on renal dialysis

== ENCOUNTER 2018-05-21 18:42 | Inpatient (IN) | payer MEDICARE, OTHER ==
[~2018-05-21] VITALS: Ht 170.2 cm; Wt 84.1 kg
[~2018-05-21 18:42] MED LIST changes: -AMIT50TA PO; -ASPI1TAB PO; +ASPI81TA26 PO; -AURY1TAB PO; -COLA100C5 PO; -DOCU100C16 PO; -GABA-843 PO; -LIDOCAINE 2% MDV 20 ML VIAL As Ordered ONE; -MIRA33504 PO; -OMEP40CA2 PO; -PATIENT COMMENT; -RENATAB5 PO; -RENV2TAB PO; -SENN8.6T7 PO; -VALS1TAB46 PO; -VALS1TAB47 PO; +VALS1TAB66 PO; +VALS1TAB67 PO
[2018-05-21] MEDS ORDERED: SENN1TAB41 PO (19:20)
[2018-05-21] MEDS ORDERED: COLA100C5 PO (19:20)
[2018-05-21 20:23] LABS: ABG BASE EXCESS -1.7 (-2.0-2.0); ABG HCO3 23.3 MEQ/L (22.0-26.0); ABG O2 SATURATION 94.7 % (95.0-99.0); ABG PARTIAL PRESSURE CO2 40.4 mmHg (35.0-45.0); ABG PARTIAL PRESSURE O2 75.7 mmHg (75.0-100.0); ABG TOTAL CO2 24.5 MEQ/L (23.0-31.0); ABG pH (ARTERIAL) 7.378 UNITS (7.350-7.450)
[2018-05-21 20:40] LABS: BASO % 0.4 % (0.0-1.0); EOS # 0.1 10^3/uL (0.0-0.50); EOS % 1.5 % (0.0-3.0); HEMATOCRIT 32.5 % (36.0-47.0); HEMOGLOBIN 10.4 g/dl (12.0-15.5); LYMPH # 0.4 10^3/uL (1.5-4.5); LYMPH % 5.4 % (24.0-44.0); MEAN CORPUSCULAR HEMOGLOBIN 31.3 pg (27.0-33.0); MEAN CORPUSCULAR VOLUME 97.9 fl (80.0-96.0); MONO # 0.7 10^3/uL (0.0-0.8); MONO % 8.7 % (0.0-5.0); NEUTROPHILS # 6.5 10^3/uL (1.8-7.7); NEUTROPHILS % 83.9 % (36.0-66.0); PLATELET COUNT, AUTOMATED 283 10^3/uL (150-450); RED BLOOD COUNT 3.32 10^6/uL (4.00-5.40); WHITE BLOOD COUNT 7.8 10^3/uL (4.0-10.0)
[2018-05-21 21:05] LABS: ACETAMINOPHEN LEVEL < 2.0 UG/ML (10.0-30.0); ALBUMIN 3.1 GM/DL (3.2-5.2); ALT/SGPT 9 U/L (12-78); BILIRUBIN,DIRECT 0.2 MG/DL (0.0-0.2); BILIRUBIN,TOTAL 0.4 MG/DL (0.2-1.0); BLOOD UREA NITROGEN 68 MG/DL (7-18); CALCIUM LEVEL 7.9 MG/DL (8.8-10.2); CARBON DIOXIDE LEVEL 26 MEQ/L (21-32); CHLORIDE LEVEL 102 MEQ/L (98-107); CK-MB VALUE MASS < 1.0 NG/ML (<3.6); CPK CREATINE PHOSPHOKINASE 18 U/L (26-192); CREATININE FOR GFR 6.15 MG/DL (0.55-1.30); ETHYL ALCOHOL (ETHANOL) < 0.003 % (0.000-0.010); GLOMERULAR FILTRATION RATE 7.1 (>39); GLUCOSE, FASTING 108 MG/DL (70-100); MB/CK RELATIVE INDEX 5.56 (< OR =4); POTASSIUM SERUM 6.2 MEQ/L (3.5-5.1); SALICYLATE LEVEL 1.9 MG/DL (5.0-30.0); SODIUM LEVEL 137 MEQ/L (136-145); TOTAL PROTEIN 6.6 GM/DL (6.4-8.2); TROPONIN I < 0.02 NG/ML (< 0.10)
[2018-05-21] MEDS ORDERED: PATIROMER SORBITEX CALCIUM 8.4 GM POWDER PACKET (VELTASSA) PO ONE (21:15)
--- NOTE | 2018-05-21 22:16 | REPVR ---
EXAM: CT Head Without Contrast EXAM DATE/TIME: 05/21/2018 9:57 PM CLINICAL HISTORY: 77 years old, female; Signs and symptoms; Altered mental status/memory loss; Additional info: AMS TECHNIQUE: Axial computed tomography images of the head/brain without contrast. All CT scans at this facility use at least one of these dose optimization techniques: automated exposure control; mA and/or kV adjustment per patient size (includes targeted exams where dose is matched to clinical indication); or iterative reconstruction. COMPARISON: CT Head without contrast 11/20/2017 4:42 PM FINDINGS: There are no intra-or extra-axial hemorrhages. There is no mass effect or midline shift. Ventricles are symmetrical and mildly dilated associated cortical volume loss commensurate with patient's stated age. Chronic ischemic changes in the periventricular deep white matter. 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 No other focal parenchymal abnormalities. Atherosclerotic changes within intracranial arteries. No calvarial fractures. IMPRESSION: Generalized atrophy and chronic ischemic changes, similar to previous examination. No acute intracranial process or intracranial hemorrhage. Electronically signed by: Jett Reeves On 05/21/2018 22:16:20 PM
[2018-05-21] MEDS ORDERED: cefTRIAXone SOD 1 GM in D5W MINI-BAG PLUS 50 ML IV ONE (23:15)
[2018-05-21] MEDS ORDERED: GABA-843 PO (23:28)
[2018-05-21] MEDS ORDERED: RENATAB5 PO (23:28)
[2018-05-21] MEDS ORDERED: DOCU100C16 PO (23:28)
[2018-05-21] MEDS ORDERED: MIRA33504 PO (23:28)
[2018-05-21] MEDS ORDERED: RENV2TAB PO (23:28)
[2018-05-21] MEDS ORDERED: OMEP40CA2 PO (23:28)
[2018-05-21] MEDS ORDERED: AMLO10TA5 PO (23:28)
[2018-05-21] MEDS ORDERED: AMIT50TA PO (23:28)
[2018-05-21] MEDS ORDERED: ATEN100T PO (23:28)
[2018-05-21] MEDS ORDERED: AURY1TAB PO (23:28)
[2018-05-21] MEDS ORDERED: PATIENT COMMENT (23:29)
[2018-05-22 00:21] LABS: AMPHETAMINES LEVEL URINE NEGATIVE (NEGATIVE); BARBITURATES URINE NEGATIVE (NEGATIVE); BENZODIAZEPINES URINE NEGATIVE (NEGATIVE); CANNABINOIDS URINE NEGATIVE (NEGATIVE); COCAINE METABOLITE URINE NEGATIVE (NEGATIVE); METHADONE URINE NEGATIVE (NEGATIVE); OPIATES URINE POSITIVE (NEGATIVE); PHENCYCLIDINE URINE NEGATIVE (NEGATIVE)
[2018-05-22] MEDS: GASTROGRAFIN SOLUTION 30ML PO SCH ×2 (01:00→01:20)
--- NOTE | 2018-05-22 02:36 | REPVR ---
EXAM: CT Abdomen and Pelvis Without Contrast EXAM DATE/TIME: 05/22/2018 12:22 AM CLINICAL HISTORY: 77 years old, female; Pain; Abdominal pain; Generalized; Additional info: SOB, chest pain, abd pain TECHNIQUE: Axial computed tomography images of the abdomen and pelvis without contrast. All CT scans at this facility use at least one of these dose optimization techniques: automated exposure control; mA and/or kV adjustment per patient size (includes targeted exams where dose is matched to clinical indication); or iterative reconstruction. Coronal and sagittal reformatted images were created and reviewed. COMPARISON: CT ABD PELVIS W/O CONTRAST 11/26/2016 1:57 PM FINDINGS: There are moderate bilateral pleural effusions at the lung bases, right greater than left. There is associated compressive atelectasis. Heart is enlarged. There is a pericardial effusion measuring up to 14 mm in thickness. There is a fluid attenuation lesion in the posterior segment of the right lobe of the liver measuring up to 2.7 cm in diameter. At least 2 other fluid attenuation lesions are identified within the left lobe of the liver. These are similar to previous examination and may represent cysts. The spleen, pancreas and adrenals are grossly normal. Gallbladder is not identified and may be surgically absent or contracted. Probable embolization coils in the splenic hilum, unchanged. Innumerable cortical cysts in the kidneys bilaterally suggestive of polycystic kidney disease. Metallic artifact adjacent to the right kidney, unchanged. No hydronephrosis. Atherosclerotic changes identified within the abdominal aorta and aortic branch vessels with no evidence of aneurysmal dilatation. Surgical suture at the gastroesophageal junction. Mildly dilated enteric loop in the anterior right abdomen similar to previous examination and likely postsurgical. Small bowel loops are grossly normal. There is moderate fecal stasis in the colon. Left-sided colonic diverticular changes with no evidence of diverticulitis. Pelvic organs are grossly normal. Uterus is not identified and may be surgically absent.. No significant free fluid in the abdomen or pelvis. Visualized osseous structures are grossly normal for age. IMPRESSION: At least moderate fecal stasis in the colon no definite evidence of enteric obstruction. No other acute intra-abdominal or pelvic process. Moderate bilateral pleural effusions. Heart is enlarged and there is pericardial effusion measuring up to 14 mm. Additional nonemergent findings as described above. Electronically signed by: Jett Reeves On 05/22/2018 02:36:33 AM
[2018-05-22 02:40] VITALS: BP 167/81
--- NOTE | 2018-05-22 03:57 | HPE ---
DATE OF ADMISSION: 05/21/2018 PRIMARY CARE PROVIDER: Mechelle Rosenthal MD WHITE [employer]WALL TIRE BUFFER: Gigi Calvin MD CHIEF COMPLAINT: Shortness of breath and no bowel movement for three weeks. HISTORY OF PRESENT ILLNESS: The patient is a 77-year-old white female with history of end-stage renal disease on dialysis, came to the hospital for evaluation of above complaints. The history is provided by herself, as well as by her , who is with her in the emergency room (ER). However, the patient is a poor historian. Per the patient, in the last three weeks, she does not have any bowel movement. She said she tried three different stool softener, but did not work. However, she denies any nausea or vomiting, but she said her appetite is poor. Also, she said she had some trouble breathing. She had a hemodialysis last and she suppose to have dialysis yesterday, but she did not go because she said she was not feeling good to go. In the emergency room (ER), her initial work up in the emergency room (ER) was not significant and medicine call for admission. REVIEW OF SYSTEMS: Denies fevers. No chills. No headache. No blurred vision. Positive shortness of breath, but no cough, no chest pain, no abdominal pain. Positive constipation. No dysuria. No tingling, numbness, weakness in arms or lower extremities. All other systems reviewed were negative. PAST MEDICAL HISTORY: 1. End-stage renal disease on dialysis. 2. Hemodialysis. 3. Hypertension. 4. Dyslipidemia. PAST SURGICAL HISTORY: Status post gastric bypass surgery back to 1977. Bilateral kidney stone, removed. Bilateral breast benign nodule removed. Hysterectomy, cholecystectomy and appendectomy. ALLERGIES: Allergic to IV DYE. FAMILY HISTORY: Noncontributory. SOCIAL HISTORY: No alcohol abuse. No illicit drug abuse. No tobacco use. She is a full code. MEDICATIONS REVIEWED INCLUDED THE FOLLOWING: - amitriptyline 50 mg by mouth at bedtime (q.h.s.) - amlodipine 10 mg by mouth daily - aspirin 81 mg by mouth daily - atenolol 100 mg daily - Wellbutrin XL 150 mg by mouth daily - clonidine 0.1 mg by mouth daily - Colace 100 mg by mouth daily - famotidine 20 mg by mouth daily - fexofenadine 100 mg by mouth daily - Flonase once a day - Neurontin 300 mg at bedtime (q.h.s.) - hydralazine 50 mg by mouth three times a day - omeprazole 40 mg by mouth daily - MiraLAX once daily - Synthroid 175 mcg by mouth daily - Renvela 800 mg by mouth three times a week PHYSICAL EXAMINATION: Temperature 96.4, heart rate is 64, respiratory rate 20, blood pressure (BP) 159/69 and oxygen saturation 96% on 2 liters oxygen. GENERAL: She is awake, alert, oriented times three. She is not in acute distress. HEENT: Atraumatic. Pupils equal, round and reactive to light. No jaundice. Extraocular muscles intact. Ears, nose, throat: Normal. Mouth: Mucosa not dry. NECK: No jugular venous distension (JVD), no bruits. LUNGS: Clear bilateral. HEART: S1, S2 regular. No murmur. ABDOMEN: Soft. Bowel sounds positive, nontender. LOWER EXTREMITIES: No edema in bilateral lower extremities. NEUROLOGICAL: Nonfocal. PSYCHOLOGICAL: No acute psychosis. DIAGNOSTIC LABORATORY STUDY INCLUDE THE FOLLOWING: Complete blood count (CBC) and differential: White blood count (WBC) 7.8, hemoglobin and hematocrit 10.4/34, platelets 283. Sodium is 137, potassium is 6.2, chloride 102, bicarbonate 26, BUN 68, creatinine 6.0. CT of the abdomen and pelvis is pending. IMPRESSION: 1. Constipation, need to rule out bowel obstruction. 2. End-stage renal disease on hemodialysis. 3. Hypokalemia. 4. Hypertension. PLAN: The patient will be admitted to the med-surg floor. CT of the abdomen and pelvis pending and will followup that to rule out bowel obstruction. Meanwhile, will give more stool softener for her constipation. Will continue her most home medications. Dr. Calvin's service needs to call for dialysis.
[2018-05-22 06:00] VITALS: BP 159/82
[2018-05-22] MEDS: ACETAMINOPHEN TAB 650MG DOSE (2X325MG) PO PRN ×3 (06:17→21:45)
[2018-05-22] MEDS: HEPARIN SOD (PORCINE) 5000 UNITS/ML VIAL SC SCH ×3 (06:18→21:46)
[2018-05-22 06:19] LABS: BASO % 0.3 % (0.0-1.0); EOS # 0.2 10^3/uL (0.0-0.50); EOS % 2.1 % (0.0-3.0); HEMATOCRIT 33.4 % (36.0-47.0); HEMOGLOBIN 10.8 g/dl (12.0-15.5); LYMPH # 0.4 10^3/uL (1.5-4.5); LYMPH % 6.1 % (24.0-44.0); MEAN CORPUSCULAR HEMOGLOBIN 30.9 pg (27.0-33.0); MEAN CORPUSCULAR HGB CONC 32.3 g/dl (32.0-36.5); MEAN CORPUSCULAR VOLUME 95.7 fl (80.0-96.0); MONO # 0.8 10^3/uL (0.0-0.8); MONO % 10.8 % (0.0-5.0); NEUTROPHILS # 5.7 10^3/uL (1.8-7.7); NEUTROPHILS % 80.4 % (36.0-66.0); PLATELET COUNT, AUTOMATED 280 10^3/uL (150-450); RED BLOOD COUNT 3.49 10^6/uL (4.00-5.40)
--- NOTE | 2018-05-22 06:30 | REPVR ---
EXAM: CT Chest Without Contrast EXAM DATE/TIME: 05/22/2018 12:22 AM CLINICAL HISTORY: 77 years old, female; Pain; Chest pain; Type not specified; Additional info: SOB, chest pain, abd pain TECHNIQUE: Axial computed tomography images of the chest without intravenous contrast. All CT scans at this facility use at least one of these dose optimization techniques: automated exposure control; mA and/or kV adjustment per patient size (includes targeted exams where dose is matched to clinical indication); or iterative reconstruction. Coronal and sagittal reformatted images were created and reviewed. COMPARISON: CT Chest without contrast 04/26/2018 8:45 AM FINDINGS: There are large bilateral pleural effusions, left greater than right. There is associated compressive atelectasis. Aerated lungs are otherwise clear. No evidence of pneumothorax. Heart is enlarged. There is a pericardial effusion measuring up to 14 mm in thickness over the right atrium. Mediastinal structures are otherwise unremarkable. No thoracic lymphadenopathy. Degenerative changes in the thoracic spine. Osseous structures are otherwise unremarkable for age. IMPRESSION: Large bilateral pleural effusions, left greater than right. Heart is enlarged and there is a pericardial effusion measuring up to 14 mm in thickness. Please see dedicated CT abdomen and pelvis reported separately. Electronically signed by: Jett Reeves On 05/22/2018 06:29:45 AM
[2018-05-22 06:34] LABS: CALCIUM LEVEL 8.4 MG/DL (8.8-10.2); CREATININE FOR GFR 6.17 MG/DL (0.55-1.30); POTASSIUM SERUM 5.3 MEQ/L (3.5-5.1)
[2018-05-22 08:00] VITALS: BP 178/80
--- NOTE | 2018-05-22 08:17 | ECGEPIP ---
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
[2018-05-22 08:22] VITALS: BP 178/80
--- NOTE | 2018-05-22 08:58 | REP ---
Portable chest, single AP view, the patient upright: Comparison is 04/26/2018. There are bilateral pleural effusions, the left pleural effusion is larger than right. The There is atelectasis of the left upper lobe. Cardiac size is enlarged. Probable right perihilar infiltrate/mass. Consider CT for further evaluation. Mediastinum and skeletal structures are unremarkable. Impression: Bilateral pleural effusions, largest on the left. Left upper lobe atelectasis. Cardiomegaly. Question right hilar infiltrate/mass versus artifact from portable positioning. Electronically Signed by Juliano Peter MD 05/22/2018 08:48 A
[2018-05-22] MEDS ORDERED: AMIT10TA PO (11:53)
[2018-05-22] MEDS: MIRALAX *UNIT DOSE* 17GM PACKET PO SCH (14:12)
[2018-05-22] MEDS: SENOKOT S TAB PO SCH ×2 (14:14→21:45)
[2018-05-22 14:30] VITALS: BP 189/93
[2018-05-22] MEDS: amLODIPine 10 MG TAB PO SCH (14:56)
[2018-05-22] MEDS: ATENOLOL 50 MG TAB PO SCH (14:57)
[2018-05-22] MEDS: **hydrALAZINE** 50 MG TAB PO SCH ×2 (16:00→21:46)
--- NOTE | 2018-05-22 19:53 | CR ---
DATE OF CONSULTATION: 05/22/2018 REASON FOR CONSULTATION: Assist in the management of end-stage renal disease and hyperkalemia. HISTORY OF PRESENT ILLNESS: Mrs. Romero is a 77-year-old female with multiple chronic medical problems, including end-stage renal disease secondary to polycystic kidneys, congestive heart failure, dyslipidemia, and hypertension. She presented to the emergency room with shortness of breath and no bowel movement for 3 weeks. She was found to have fecal impaction and was also noticed to have bilateral pleural effusion and pericardial effusion. She had missed her dialysis treatment, and a nephrology consultation was requested for dialysis today. PAST MEDICAL HISTORY: Significant for 1. Polycystic kidney disease leading to end-stage renal disease. 2. Hypertension. 3. Anemia. 4. Dyslipidemia. 5. History of kidney stones. 6. History of chronic degenerative arthritis. 7. History of gastroesophageal reflux disease. 8. Hypothyroidism. 9. Secondary hyperparathyroidism. HOME MEDICATIONS: - amitriptyline 50 mg at bedtime for sleep - amlodipine 10 mg daily - aspirin 81 mg daily - atenolol 100 mg daily - Wellbutrin XL 150 mg daily - clonidine 0.1 mg daily - Colace 100 mg daily - famotidine 20 mg daily - Neurontin 300 mg at bedtime - hydralazine 50 mg three times a day - omeprazole 40 mg daily - MiraLax one dose daily - Synthroid 175 mcg daily - Renvela 800 mg three times a day ALLERGIES: She has allergy to radiocontrast dye. FAMILY HISTORY: Significant for polycystic kidney disease and end-stage renal disease. PERSONAL AND SOCIAL HISTORY: The patient denies any alcohol, tobacco, or drug use. REVIEW OF SYSTEMS: She has been feeling poorly due to worsening constipation and no bowel movement for 3 weeks. She has shortness of breath, particularly on any exertion. She denies any chest pain. She denies any fever or chills. Ears, nose and throat are unremarkable. Cardiovascular system is significant for congestive heart failure and shortness of breath. She denies any leg edema. Respiratory system is negative for hemoptysis or pleuritic type of chest pain. Gastrointestinal (GI) system is significant for constipation and poor appetite. She denies any vomiting or diarrhea. Genitourinary () system is negative for dysuria or hematuria. Musculoskeletal system is significant for chronic degenerative arthritis and difficulty ambulating. Endocrine system significant for hypothyroidism and secondary hyperparathyroidism. Neurological system is significant for peripheral neuropathy. Hematological system is significant for anemia of chronic kidney disease. PHYSICAL EXAMINATION: The patient is awake and without any acute distress. Temperature 97.7 degrees Fahrenheit, heart rate 74 per minute, respiratory rate 22 per minute, blood pressure 159/82 mm of mercury, and oxygen saturation 91% on 2 liters oxygen. Her head is atraumatic. Pupils equal and reactive to light, and sclerae are anicteric. Neck is supple, and jugular venous distention (JVD) is mildly elevated. Her right internal jugular vein Perm-A-Cath has already been removed, and there is no sign of drainage or infection. Heart sounds are regular and lungs with diminished breath sounds bilaterally. Abdomen is soft and bowel sounds are present. Extremities have no cyanosis or clubbing. Left arm arteriovenous (AV) fistula is patent. Neurologically, she is awake and at her baseline mentation without a neurological deficit. LABORATORY DATA: WBC count 7.0, hemoglobin 10.8, hematocrit 33.4, platelets 280. Sodium 135, potassium 5.3, CO2 of 24, BUN 71, and creatinine 6.17. Glucose 124 and calcium 8.4. Blood gas showed a pH of 7.37, pCO2 of 40, pO2 of 75.7, and bicarbonate 23. Urinalysis showed 7 WBC and 1 RBC. She had a [address] scan of abdomen and pelvis done in the emergency room, which showed moderate fecal stasis in the colon and moderate bilateral pleural effusions. Pericardial effusion was also noticed. A chest CT scan was also done, which confirmed large bilateral pleural effusions, left greater than the right, and pericardial effusion about 14 mm in thickness. PROBLEMS; 1. End-stage renal disease. The patient is going to be dialyzed this morning, and we will try to dialyze her aggressively frequently in order to correct her volume status and pericardial effusion. 2. Bilateral pleural effusions. Most likely these are chronic and I would recommend left thoracentesis. We are going to try to dialyze her aggressively and remove fluid over next few days. It remains to be seen how her pleural effusions improve. 3. Hyperkalemia due to missed dialysis treatment, and this will be corrected with dialysis today. I do not feel that any other intervention will be needed. 4. Hypertension. Her blood pressure is sometimes somewhat high; however, it is likely to improve after dialysis. I am also going to try to adjust her antihypertensive medications in view of her pericardial and pleural effusions and need for fluid removal with dialysis. 5. Constipation. I would recommend aggressive bowel care with MiraLax and Senokot-S. We can also probably use Dulcolax if needed. Thank you for involving me in the care of Mrs. Romero. I will follow her along with you. PABLO
--- NOTE | 2018-05-22 20:31 | IPNPDOC ---
Subjective Date Seen The patient was seen on 05/22/18. Subjective Chief Complaint/HPI Patient reports feeling tired. Was not having bowel movements for several weeks. Has had a bowel movement today. Did have dialysis today. Constitutional: Denies: Chills, Fever Cardiovascular: Denies: Chest Pain Objective Physical Examination General Exam: Positive: Alert, Cooperative, No Acute Distress Eye Exam: Positive: PERRLA Neck Exam: Positive: Supple Chest Exam: Positive: Diminished (bilaterally) Heart Exam: Negative: Tachycardic, Murmurs Abdomen Exam: Positive: Normal bowel sounds Extremity Exam: Negative: Clubbing Assessment /Plan Problems (1) Pleural effusion Status: Acute Problem Text: Bilateral pleural effusions noted on CT scan Chest. Will discuss possible pleurocentesis. Monitor vitals. (2) Pericardial effusion Problem Text: Patient had noted on CT scan of chest. (3) ESRD (end stage renal disease) on dialysis Status: Acute Problem Text: Patient missed dialysis Saturday. Had dialysis today. (4) HTN (hypertension) Problem Text: Continue patient's medications. Monitor vitals. (5) Dyslipidemia Problem Text: Continue home medication. Plan/VTE VTE Prophylaxis Ordered?: Yes (Heparin) VS, I&O, 24H, Fishbone Vital Signs/I&O Vital Signs Date Time Temp Pulse Resp B/P (MAP) Pulse Ox O2 Delivery O2 Flow Rate FiO2 05/22/18 16:00 146/65 05/22/18 14:56 78 05/22/18 14:30 97.7 18 100 2.0 05/22/18 02:22 Nasal Cannula I&O- Last 24 Hours up to 6 AM 05/22/18 05:59 Intake Total 0 ml Output Total 0 ml Balance 0 ml Laboratory Data 24H LABS Laboratory Tests 2 05/22/18 05:48: Immature Granulocyte % (Auto) 0.3, White Blood Count 7.0, Red Blood Count 3.49L, Hemoglobin 10.8L, Hematocrit 33.4L, Mean Corpuscular Volume 95.7, Mean Corpuscular Hemoglobin 30.9, Mean Corpuscular Hemoglobin Concent 32.3, Red Cell Distribution Width 12.4, Platelet Count 280, Neutrophils (%) (Auto) 80.4H, Lymphocytes (%) (Auto) 6.1L, Monocytes (%) (Auto) 10.8H, Eosinophils (%) (Auto) 2.1, Basophils (%) (Auto) 0.3, Neutrophils # (Auto) 5.7, Lymphocytes # (Auto) 0.4L, Monocytes # (Auto) 0.8, Eosinophils # (Auto) 0.2, Basophils # (Auto) 0.0, Nucleated Red Blood Cells % (auto) 0.0, Anion Gap 10, Glomerular Filtration Rate 7.0L, Blood Urea Nitrogen 71H, Creatinine 6.17H, Sodium Level 135L, Potassium Level 5.3H, Chloride Level 101, Carbon Dioxide Level 24, Calcium Level 8.4L CBC/BMP Laboratory Tests 05/22/18 05:48 Red Blood Count 3.49 L, Mean Corpuscular Volume 95.7, Mean Corpuscular Hemoglobin 30.9, Mean Corpuscular Hemoglobin Concent 32.3, Red Cell Distribution Width 12.4, Neutrophils (%) (Auto) 80.4 H, Lymphocytes (%) (Auto) 6.1 L, Monocytes (%) (Auto) 10.8 H, Eosinophils (%) (Auto) 2.1, Basophils (%) (Auto) 0.3, Neutrophils # (Auto) 5.7, Lymphocytes # (Auto) 0.4 L, Monocytes # (Auto) 0.8, Eosinophils # (Auto) 0.2, Basophils # (Auto) 0.0, Calcium Level 8.4 L Microbiology Microbiology 05/21/18 Blood Culture, Received Pending 05/21/18 Blood Culture, Received Pending 05/21/18 Urine Culture, Received Pending GME ATTESTATION GME ATTESTATION My faculty preceptor for this patient encounter was physically present during the encounter and was fully available. All aspects of the patient interview, examination, medical decision making process, and medical care plan development were reviewed and approved by the faculty preceptor. The faculty preceptor is aware and concurs with the plan as stated in the body of this note and will attest to such by his/her cosignature. AGAPITO DOWD DO May 22, 2018 20:31
--- NOTE | 2018-05-22 20:41 | ECHO ---
DATE OF PROCEDURE: 05/22/2018 REFERRING PHYSICIAN: Dr. Melvin INDICATION: Dyspnea Height 170 cm, weight 97 kg. DIMENSIONS: IVS: 1.1 LV: 5.7 LVPW: 1.1 LA: 3.8 Aorta: 3.5 IVC: 2.0 Mitral E wave velocity: 110 A wave: 73 Tissue Doppler velocities of mitral annulus were not obtained. FINDINGS: The study is of fair technical quality. Left ventricle is mildly dilated. There is global hypokinesis. I estimate left ventricular ejection fraction (LVEF) around 40-45%. The right ventricle does not appear grossly enlarged. Both atria appear to be severely enlarged based on apical four-chamber views. Aortic valve is sclerotic. It is tricuspid, and there is some minimal restriction of mobility. There are also degenerative abnormalities of mitral valve with mitral annular calcifications. Tricuspid valve appears normal. Pulmonic valve appears normal as well. There is moderate to large sized circumferential pericardial effusion. I do not appreciate any diastolic collapse of any of the four cardiac chambers. Mitral inflow velocity fluctuated somewhat with respiratory cycle, but the recording was of fair quality. It does not appear that the fluctuation is very prominent, though. Inferior vena cava is dilated, and there is no appreciable collapse with respiration indicative of high central venous pressure. Aortic root is normal. Aortic arch and abdominal aorta were not seen. Both right and left-sided pleural effusion is seen. Doppler interrogation reveals minimal aortic stenosis (mean gradient 8 mmHg) and mild insufficiency. There is also mild mitral and mild tricuspid insufficiency. Calculated pulmonary artery pressure is at a minimum in 30s, but the quality of TR jet was not good and this should not be considered overly reliable. Evaluation of diastolic function is limited due to absence of tissue Doppler velocity recordings but based on available pattern, most likely there is grade 2 diastolic dysfunction. CONCLUSIONS: 1. Study is of acceptable technical quality. 2. Mildly dilated left ventricle with global left ventricular systolic dysfunction and estimated LVEF around 40-45%, probably grade 2 diastolic dysfunction. 3. Aortic sclerosis with mild stenosis and mild insufficiency. 4. Mild mitral and tricuspid insufficiency. 5. High central venous pressure. 6. At least mild pulmonary hypertension. 7. Moderate to large sized circumferential pericardial effusion without any signs of cardiac compression. COMMENT: Subacute bacterial endocarditis (SBE) prophylaxis is not recommended. Depending on clinical situation, early followup is recommended to ensure that there is no progression of pericardial effusion size. Also, of note, the patient has both right and left-sided pleural effusions.
[2018-05-22] MEDS: AMITRIPTYLINE 10 MG TAB PO SCH (21:44)
[2018-05-22 22:00] VITALS: BP 155/74
[2018-05-23] MEDS ORDERED: FEXOFENADINE 60 MG TAB PO PRN (01:45)
[2018-05-23] MEDS ORDERED: FLUTICASONE PROP 0.05% NASAL SPRAY 16 GM (FLONASE) PRN (01:45)
[2018-05-23] MEDS: ASPIRIN 81 MG ENTERIC TAB PO SCH ×2 (02:38→21:47)
[2018-05-23] MEDS: GABAPENTIN 300 MG CAP PO SCH ×2 (02:38→21:47)
[2018-05-23] MEDS: LEVOTHYROXINE 150MCG TABLET (0.15MG) PO SCH (05:06)
[2018-05-23] MEDS: ACETAMINOPHEN TAB 650MG DOSE (2X325MG) PO PRN (05:06)
[2018-05-23] MEDS: LEVOTHYROXINE 25MCG TABLET (0.025MG) PO SCH (05:06)
[2018-05-23] MEDS: HEPARIN SOD (PORCINE) 5000 UNITS/ML VIAL SC SCH ×3 (05:07→21:49)
[2018-05-23 06:00] VITALS: BP 156/70
[2018-05-23 06:50] LABS: ALBUMIN 2.7 GM/DL (3.2-5.2); CALCIUM LEVEL 8.2 MG/DL (8.8-10.2); CREATININE FOR GFR 3.89 MG/DL (0.55-1.30); PHOSPHORUS LEVEL 4.9 MG/DL (2.5-4.9); POTASSIUM SERUM 4.3 MEQ/L (3.5-5.1)
[2018-05-23] MEDS: MIRALAX *UNIT DOSE* 17GM PACKET PO SCH (08:57)
[2018-05-23] MEDS: ATENOLOL 50 MG TAB PO SCH (08:58)
[2018-05-23] MEDS: OMEPRAZOLE 20 MG CAP PO SCH (08:58)
[2018-05-23] MEDS: amLODIPine 10 MG TAB PO SCH (08:58)
[2018-05-23] MEDS: SENOKOT S TAB PO SCH ×2 (08:59→21:47)
[2018-05-23] MEDS: **hydrALAZINE** 50 MG TAB PO SCH ×3 (08:59→21:48)
[2018-05-23] MEDS ORDERED: HEPARIN 1,000 UNITS/ML 10ML VIAL (FOR RADIOLOGY& DIALYSIS ONLY) IV ONE (12:15)
--- NOTE | 2018-05-23 15:07 | IPN ---
DATE: 05/23/2018 Mrs. Romero is seen this morning on her bedside. She reports not feeling well and could not sleep last night. She feels discomfort in her left chest and she stated that she keeps rubbing her chest due to discomfort. She has known history of large left pleural effusion and a moderate-sized right pleural effusion in addition to pericardial effusion. She was dialyzed yesterday and we removed 2 liters of fluid which she tolerated well. We will plan to dialyze her again today. PHYSICAL EXAMINATION: Temperature 96.8 degrees Fahrenheit, heart rate 66 per minute and respiratory rate 22 per minute. Blood pressure 156/70 mmHg and oxygen saturation 96%. Head is atraumatic. Her lips and oral mucosa is mildly dry. Neck veins are difficult to be assessed. Heart sounds are regular and there is a systolic murmur. I am also questioning a possible pericardial rub. Lungs have diminished breath sounds at dependent parts bilaterally. Abdomen is soft and nontender. Bowel sounds are present. Extremities have no cyanosis or clubbing. Neurologically, she is at her baseline mentation. LABORATORY DATA: Today's laboratories show WBC count 7.0, hemoglobin 10.8 and hematocrit 33.4. Sodium 139, potassium 4.3, CO2 28, BUN 31, and creatinine 3.89. Glucose 102 and calcium 8.2. PROBLEMS: 1. End-stage renal disease. The patient was dialyzed yesterday and will be dialyzed again today. She did miss one dialysis treatment during the week. 2. Pericardial effusion, most likely related to generalized volume overload and end-stage renal disease. We are going to dialyze her frequently and she will be dialyzed today and again tomorrow. After a few treatments, we will repeat her chest CT scan. 3. Bilateral pleural effusions. Again, her volume status has been probably chronically decompensated and we are going to try to remove fluid with frequent dialysis. She will be dialyzed again today and we will try to remove about 2 liters of fluid as tolerated. She should also have a thoracentesis done, particularly on the left side where she has a large pleural effusion causing her symptoms. 4. Hyperkalemia. This is corrected with dialysis and no further intervention is indicated. 5. Anemia. Her anemia has been stable and does not need any intervention at this point. 6. Constipation. She did have a couple of bowel movements and we will continue with aggressive bowel care to evacuate her colon completely. 7. Generalized weakness and deconditioning. She has been laying in the bed most of the time and I would recommend and encourage the nursing staff to get her out of bed as often as possible.
[2018-05-23] MEDS ORDERED: LIDOCAINE 2% MDV 20 ML VIAL As Ordered ONE (16:06)
[2018-05-23] MEDS ORDERED: HEPARIN 1,000 UNITS/ML 10ML VIAL (FOR RADIOLOGY& DIALYSIS ONLY) As Ordered ONE (16:06)
[2018-05-23] MEDS ORDERED: fentaNYL 100 MCG/2 ML INJECTION (J3010) As Ordered ONE (16:30)
[2018-05-23] MEDS ORDERED: MIDAZOLAM INJ 2 MG/2 ML VIAL (J2250) As Ordered ONE (16:31)
--- NOTE | 2018-05-23 18:09 | ROOPDOC ---
[facility] Report Of Operation Report of Operation DATE OF PROCEDURE: 05/23/18 PREPROCEDURE DIAGNOSES: End-stage renal disease with difficulty accessing left upper extremity AV fistula for dialysis. POSTPROCEDURE DIAGNOSES: 1. End-stage renal disease with difficulty accessing left upper extremity AV fistula for dialysis 2. Thrombosed right internal jugular vein PROCEDURE: 1. Ultrasound-guided access left internal jugular vein. 2. Placement of a 23 cm tunneled PermCath left internal jugular vein SURGEON:Ervin Shea MD ANESTHESIA: Local with 20 mL lidocaine and light sedation with 0.5 mg IV Versed and 25 g IV fentanyl. ESTIMATED BLOOD LOSS: Approximately 5 mL. COMPLICATIONS: None. INDICATION FOR PROCEDURE: Ms. sarkar is a 77-year-old patient with end-stage renal disease, currently dialyzing with her left upper extremity brachiocephalic AV fistula, but today they were unable to access the fistula successfully for dialysis. The patient needs dialysis fairly urgently due to bilateral pleural effusions and a pericardial effusion. A [employer] dean have asked that we place a PermCath. Risks, benefits and alternatives were explained to the patient. She is agreeable to proceed. Informed consent was obtained. INTERPRETATION: While trying to access the right internal jugular vein, it became apparent that it was thrombosed and access was not suitable for PermCath placement. The patient had a recent right internal jugular PermCath and likely this resulted in thrombosis of her jugular vein. We therefore selected her left internal jugular vein for access and after placement of the catheter, the tips were freely mobile and the right atrial and superior vena cava junction. No pneumothorax was noted. It is okay to use the catheter for dialysis. PROCEDURE NOTE: The patient was brought to the angiographic suite in stable condition. She was placed supine on the fluoroscopic table. Her right neck and chest were prepped and draped in sterile fashion. A timeout was performed. Ultrasound was used to visualize the right internal jugular vein and we attempted to access this. However, the vein was small and did not appear entirely compressible. I felt this might be due to fluid overload. However, it became apparent that the vein was thrombosed during our access attempt. We therefore decided to prep and drape her left neck and chest in a sterile fashion and access her left internal jugular vein after checking with ultrasound to make sure that it was patent. Once we were again prepped and draped. Local anesthesia was used to anesthetize the skin and subcutaneous tissue over the jugular vein over the clavicle and onto the left chest. Ultrasound was used to guide access to the left internal jugular vein with a microneedle and a wire was passed through this access into the central system under fluoroscopic guidance the needle was removed and a micro-sheath was placed over the wire using the Seldinger technique. The wire was exchanged for an O35 wire through the micro- sheath under fluoroscopic guidance. A small incision was made at the jugular access placed with the skin knife and on the right chest below the clavicle at the jugular access site. The micro-sheath was removed and 2 serial dilations were performed over the wire using the Seldinger technique and a purely sheath was then placed over the wire. We then tunneled a 23 centimeter PermCath from the right chest to the jugular access site through the subcutaneous tissue. The inner cannula of the peel-away sheath and the wire removed in the tips of the catheter were advanced through the peel-away sheath into the central system under fluoroscopic guidance. The peel-away sheath was then removed. The catheter was advanced a few centimeters further until the tips were freely mobile at the superior vena cava and right atrial junction. Both ports christina back and flushed easily and were heparin lock 22 mL of strong heparin and appropriate replaced at the port sites. Final imaging revealed that there were no kinks in the catheter, the tips were in good position, and there is no pneumothorax. The jugular access site was cleaned and dried. Deep and superficial dermal interrupted Monocryl sut ures were used to approximate the skin edges and Dermabond was used to close the access site at the skin. A Prolene suture was used to close the skin at the catheter exit site on the right chest and to secure the catheter to the chest wall in 2 places. A sterile antimicrobial dressing was placed. There were no complications. Estimated blood loss was 5 mL. Plan: I believe the patient's fistula is working well, and it has a good thrill. However, it may be too deep for access in the upper arm and need to be s uperficialized, and it may need a fistulogram first to make sure that it is adequate diameter more proximally. I believe the trouble with access is due to the depth of the fistula. For now, it is okay to use the PermCath for dialysis if needed and we can evaluate her fistula further on an elective basis in the near future. NEAL SHEA MD May 23, 2018 18:09
--- NOTE | 2018-05-23 20:02 | IPNPDOC ---
Subjective Date Seen The patient was seen on 05/23/18. Subjective Chief Complaint/HPI Patient reports being tired today. Reports having a cough. Denies abdominal pain. Constitutional: Denies: Chills, Fever Pulmonary: Reports: Cough Assessment /Plan Problems (1) Pleural effusion Status: Acute Problem Text: 05/23 Consider having pleurocentesis tomorrow. IR was unavailable today. Consider Pulmonology tomorrow. Bilateral pleural effusions noted on CT scan Chest. Will discuss possible pleurocentesis. Monitor vitals. (2) Pericardial effusion Problem Text: Patient had noted on CT scan of chest. (3) ESRD (end stage renal disease) on dialysis Status: Acute Problem Text: 05/23 Patient had to have another port for dialysis placed. Did not have dialysis today. Will have more tomorrow. Patient missed dialysis Saturday. Had dialysis today. (4) Dyslipidemia Problem Text: Continue home medication. (5) HTN (hypertension) Problem Text: Continue patient's medications. Monitor vitals. (6) Constipation Status: Chronic Problem Text: Patient had several BMs yesterday and today. Monitor BMs. Plan/VTE VTE Prophylaxis Ordered?: Yes VS, I&O, 24H, Fishbone Vital Signs/I&O Vital Signs Date Time Temp Pulse Resp B/P (MAP) Pulse Ox O2 Delivery O2 Flow Rate FiO2 05/23/18 09:00 2.0 05/23/18 08:58 75 137/75 05/23/18 06:00 96.8 22 96 05/22/18 02:22 Nasal Cannula I&O- Last 24 Hours up to 6 AM 05/23/18 06:00 Intake Total 1470 ml Output Total 2030 ml Balance -560 ml Laboratory Data 24H LABS Laboratory Tests 2 05/23/18 05:48: Blood Urea Nitrogen 31#H, Creatinine 3.89H, Sodium Level 139, Potassium Level 4.3, Chloride Level 103, Carbon Dioxide Level 28, Anion Gap 8, Glomerular Filtration Rate 12.0L, Calcium Level 8.2L, Phosphorus Level 4.9, Albumin 2.7L CBC/BMP Laboratory Tests 05/23/18 05:48 Anion Gap 8 Microbiology Microbiology 05/21/18 Blood Culture - Preliminary, Resulted No growth after 24 hours . All specim... 05/21/18 Blood Culture - Preliminary, Resulted No growth after 24 hours . All specim... 05/21/18 Urine Culture - Final, Complete GME ATTESTATION GME ATTESTATION My faculty preceptor for this patient encounter was physically present during the encounter and was fully available. All aspects of the patient interview, examination, medical decision making process, and medical care plan development were reviewed and approved by the faculty preceptor. The faculty preceptor is aware and concurs with the plan as stated in the body of this note and will attest to such by his/her cosignature. ATTENDING NOTE Agree with resident's note. Unable to receive dialysis today as AV fistula could not be accessed; instead L IJ Permacath was placed. (Per Op note, R IJ is thrombosed, from recent Permacath there.) There was a suggestion that her AV fistula, which she has been receiving dialysis through, might be too deep to be easily accessed. New Permacath is usable, and I anticipate patient may receive dialysis tomorrow. -- AGAPITO NELSON DO May 23, 2018 20:02 BUBBA GOMEZ DO May 24, 2018 00:19
[2018-05-23] MEDS: AMITRIPTYLINE 10 MG TAB PO SCH (21:47)
[2018-05-23 22:00] VITALS: BP 175/85
[2018-05-24] MEDS: ACETAMINOPHEN TAB 650MG DOSE (2X325MG) PO PRN ×3 (04:52→21:11)
[2018-05-24 06:00] VITALS: BP 174/79
[2018-05-24 06:01] LABS: ALBUMIN 2.6 GM/DL (3.2-5.2); CALCIUM LEVEL 7.8 MG/DL (8.8-10.2); CREATININE FOR GFR 4.67 MG/DL (0.55-1.30); GLOMERULAR FILTRATION RATE 9.7 (>39); MAGNESIUM LEVEL 2.6 MG/DL (1.8-2.4); PHOSPHORUS LEVEL 6.1 MG/DL (2.5-4.9); POTASSIUM SERUM 4.8 MEQ/L (3.5-5.1)
[2018-05-24] MEDS: LEVOTHYROXINE 25MCG TABLET (0.025MG) PO SCH (06:29)
[2018-05-24] MEDS: LEVOTHYROXINE 150MCG TABLET (0.15MG) PO SCH (06:29)
[2018-05-24] MEDS: HEPARIN SOD (PORCINE) 5000 UNITS/ML VIAL SC SCH ×3 (06:29→21:10)
[2018-05-24] MEDS: **hydrALAZINE** 50 MG TAB PO SCH ×3 (06:30→21:10)
[2018-05-24] MEDS: ATENOLOL 50 MG TAB PO SCH (06:30)
[2018-05-24] MEDS: OMEPRAZOLE 20 MG CAP PO SCH (06:31)
[2018-05-24] MEDS: amLODIPine 10 MG TAB PO SCH (06:31)
[2018-05-24] MEDS: MIRALAX *UNIT DOSE* 17GM PACKET PO SCH (06:31)
[2018-05-24] MEDS: SENOKOT S TAB PO SCH (06:31)
[2018-05-24 09:38] VITALS: BP 152/73
--- NOTE | 2018-05-24 12:02 | IPNPDOC ---
Subjective Date Seen The patient was seen on 05/24/18. Subjective Chief Complaint/HPI Patient still feels tired. Did not sleep well overnight. Feels a little better over dialysis. Normally not on oxygen at home. Denies shortness of breath. Has now had several large bowel movements. Constitutional: Denies: Chills, Fever Gastrointestinal: Denies: Abdominal Pain Objective Physical Examination General Exam: Positive: Alert, Cooperative, No Acute Distress Eye Exam: Positive: PERRLA Neck Exam: Positive: Supple Chest Exam: Positive: Diminished (bilaterally) Heart Exam: Negative: Tachycardic, Murmurs Abdomen Exam: Positive: Normal bowel sounds Extremity Exam: Negative: Clubbing Assessment /Plan Problems (1) Pleural effusion Status: Acute Problem Text: 05/24 Will reevaluate patient's lungs after dialysis today. Order chest radiograph. Consider pleurocentesis if does not improve. 05/23 Consider having pleurocentesis tomorrow. IR was unavailable today. Consider Pulmonology tomorrow. Bilateral pleural effusions noted on CT scan Chest. Will discuss possible pleurocentesis. Monitor vitals. (2) Pericardial effusion Status: Acute Problem Text: 05/24 Monitor symptoms. Had present on admission. Patient had noted on CT scan of chest. (3) ESRD (end stage renal disease) on dialysis Status: Acute Problem Text: 05/23 Patient had to have another port for dialysis placed. Did not have dialysis today. Will have more tomorrow. Patient missed dialysis Saturday. Had dialysis today. (4) Dyslipidemia Status: Chronic Problem Text: Continue home medication. (5) HTN (hypertension) Status: Chronic Problem Text: Continue patient's medications. Monitor vitals. (6) Constipation Status: Chronic Problem Text: 05/24 Change medications to prn from scheuled for now. Patient had several BMs yesterday and today. Monitor BMs. Plan/VTE VTE Prophylaxis Ordered?: Yes VS, I&O, 24H, Fishbone Vital Signs/I&O Vital Signs Date Time Temp Pulse Resp B/P (MAP) Pulse Ox O2 Delivery O2 Flow Rate FiO2 05/24/18 09:38 97.1 66 18 152/73 99 2.0 05/22/18 02:22 Nasal Cannula l I&O- Last 24 Hours up to 6 AM 05/24/18 06:00 Intake Total 690 ml Output Total 200 ml Balance 490 ml Laboratory Data 24H LABS Laboratory Tests 2 05/24/18 05:22: Blood Urea Nitrogen 41H, Creatinine 4.67H, Sodium Level 139, Potassium Level 4.8, Chloride Level 104, Carbon Dioxide Level 26, Anion Gap 9, Glomerular Filtration Rate 9.7L, Calcium Level 7.8L, Phosphorus Level 6.1#H, Magnesium Level 2.6H, Albumin 2.6L CBC/BMP Laboratory Tests 05/24/18 05:22 Anion Gap 9 Microbiology Microbiology 05/21/18 Blood Culture - Preliminary, Resulted No Growth after 48 hours. All Specime... 05/21/18 Blood Culture - Preliminary, Resulted No Growth after 48 hours. All Specime... 05/21/18 Urine Culture - Final, Complete GME ATTESTATION GME ATTESTATION My faculty preceptor for this patient encounter was physically present during the encounter and was fully available. All aspects of the patient interview, examination, medical decision making process, and medical care plan development were reviewed and approved by the faculty preceptor. The faculty preceptor is aware and concurs with the plan as stated in the body of this note and will attest to such by his/her cosignature. ATTENDING NOTE Agree with findings and plan as documented by Dr. Dowd. AGAPITO DOWD DO May 24, 2018 12:02 Ahsan Patino MD May 25, 2018 09:33
[2018-05-24] MEDS ORDERED: SENOKOT S TAB PO PRN (15:30)
[2018-05-24 15:48] VITALS: BP 138/78
--- NOTE | 2018-05-24 16:55 | REP ---
AP and lateral chest: Comparison is 05/21/2018. There is a dual lumen left IJ central venous catheter with the tip at the confluence of the superior vena cava and right atrium as an interval change. There is no pneumothorax. There are bilateral pleural effusions, unchanged. Cardiac size is enlarged, unchanged. Electronically Signed by Juliano Peter MD 05/24/2018 04:46 P
[2018-05-24] MEDS: GABAPENTIN 300 MG CAP PO SCH (21:09)
[2018-05-24] MEDS: ASPIRIN 81 MG ENTERIC TAB PO SCH (21:10)
[2018-05-24] MEDS: AMITRIPTYLINE 10 MG TAB PO SCH (21:10)
[2018-05-24 22:00] VITALS: BP 174/74
--- NOTE | 2018-05-24 23:17 | IPN ---
DATE: 05/24/2018 Ms. Romero is seen this morning during hemodialysis. Yesterday we try to dialyze her however, her fistula did not work. She underwent a new left sided Perma-Cath placement by vascular surgery later in the day. She is being dialyzed this morning. The patient remains weak and complains of discomfort and heaviness in her left chest. She denies any nausea or vomiting. She is chronically short of breath. PHYSICAL EXAMINATION: VITAL SIGNS: Temperature 97.1 degrees Fahrenheit, heart rate 66 per minute and respiratory rate 18 per minute. Blood pressure 152/73 mmHg and oxygen saturation 99% on 2 liters oxygen. HEENT: Head is atraumatic. Oral mucosa is dry but without any thrush or ulcers. Neck is supple and jugular venous distention (JVD) does not seem to be abnormally elevated. She has a new Perma-Cath in left internal jugular vein. HEART: Her heart sounds are regular. LUNGS: Lungs with diminished breath sounds bilaterally. ABDOMEN: Soft and bowel sounds are normal. EXTREMITIES: Extremities have no cyanosis or clubbing. NEUROLOGICAL: Neurologically she is at her baseline mentation. LABORATORIES: Today's chemistry showed sodium 139, potassium 4.8, CO2 26, BUN 41 and creatinine 4.67. Calcium 7.8 and phosphorus 6.1. PROBLEMS: 1. End-stage renal disease. The patient is being dialyzed this morning via a new Perma-Cath. Her arteriovenous (AV) fistula did not work yesterday and I have requested vascular surgery for a fistulogram and possible angioplasty. In the meantime we will continue using her new catheter for dialysis. 2. Bilateral pleural effusions and pericardial effusion. She has chronic issues and we plan to dialyze her frequently in order to try to clear her pericardial effusion and bilateral pleural effusions. I have also suggested the primary care to get a left thoracentesis done as the patient has a large pleural effusion on the left side. 3. Constipation. She was admitted with severe constipation. However has had bowel movements now with aggressive bowel care. She denies any abdominal pain at present. 4. Hypertension. Blood pressure is very well controlled and we will continue with current antihypertensive medications.
[2018-05-25] MEDS: HEPARIN SOD (PORCINE) 5000 UNITS/ML VIAL SC SCH ×3 (05:48→21:54)
[2018-05-25] MEDS: LEVOTHYROXINE 150MCG TABLET (0.15MG) PO SCH (05:48)
[2018-05-25] MEDS: LEVOTHYROXINE 25MCG TABLET (0.025MG) PO SCH (05:48)
[2018-05-25 05:59] LABS: BASO % 0.5 % (0.0-1.0); EOS # 0.1 10^3/uL (0.0-0.50); EOS % 1.8 % (0.0-3.0); HEMATOCRIT 38.1 % (36.0-47.0); HEMOGLOBIN 11.8 g/dl (12.0-15.5); LYMPH # 0.4 10^3/uL (1.5-4.5); LYMPH % 6.6 % (24.0-44.0); MEAN CORPUSCULAR HEMOGLOBIN 30.8 pg (27.0-33.0); MEAN CORPUSCULAR VOLUME 99.5 fl (80.0-96.0); MONO # 0.7 10^3/uL (0.0-0.8); MONO % 11.5 % (0.0-5.0); NEUTROPHILS # 4.8 10^3/uL (1.8-7.7); NEUTROPHILS % 79.3 % (36.0-66.0); PLATELET COUNT, AUTOMATED 216 10^3/uL (150-450); RED BLOOD COUNT 3.83 10^6/uL (4.00-5.40); WHITE BLOOD COUNT 6.1 10^3/uL (4.0-10.0)
[2018-05-25 06:00] VITALS: BP 152/73
[2018-05-25 06:27] LABS: ALBUMIN 2.3 GM/DL (3.2-5.2); CALCIUM LEVEL 8.2 MG/DL (8.8-10.2); CREATININE FOR GFR 3.52 MG/DL (0.55-1.30); GLOMERULAR FILTRATION RATE 13.5 (>39); PHOSPHORUS LEVEL 4.3 MG/DL (2.5-4.9); POTASSIUM SERUM 4.2 MEQ/L (3.5-5.1)
[2018-05-25] MEDS: amLODIPine 10 MG TAB PO SCH (09:00)
[2018-05-25] MEDS ORDERED: MIRALAX *UNIT DOSE* 17GM PACKET PO PRN (09:00)
--- NOTE | 2018-05-25 09:30 | IPNPDOC ---
Subjective Date Seen The patient was seen on 05/25/18. Subjective Chief Complaint/HPI cough and WATSON continue Constitutional: Denies: Chills Eyes: Denies: Pain ENT: Reports: Head Aches (accompanies cough) Skin: Denies: Rash Pulmonary: Reports: Dyspnea (WATSON, cough triggered easily with movement.), Cough Cardiovascular: Denies: Chest Pain Gastrointestinal: Denies: Nausea, Vomiting Hematologic: Denies: Bruising Psych: Reports: Mood Normal Objective Physical Examination General Exam: Positive: Alert, Cooperative, No Acute Distress Eye Exam: Positive: PERRLA Neck Exam: Positive: Supple Chest Exam: Positive: Diminished (bilaterally, no wheezes, no rales) Heart Exam: Negative: Tachycardic, Murmurs Abdomen Exam: Positive: Normal bowel sounds Extremity Exam: Negative: Clubbing Skin Exam: Negative: Rash Psych Exam: Positive: Mental status NL Assessment /Plan Problems (1) Pleural effusion Status: Acute Response to Treatment: Stable Problem Specific Plan: Repeat Tests Problem Text: 05/25: no change with yesterdays CXR. Continues to have significant symptoms with exertion of dyspnea and cough. IR will be available tomorrow, if CXR still shows no improvement in effusions and symptom are unabated then will need IR to drain effusions. Consider also intervention for pericardial effusion. 05/24 Will reevaluate patient's lungs after dialysis today. 05/23 Consider having pleurocentesis tomorrow. IR was unavailable today. Consider Pulmonology tomorrow. Bilateral pleural effusions noted on CT scan Chest. Will discuss possible pleurocentesis. Monitor vitals. (2) Pericardial effusion Status: Acute Response to Treatment: Stable Problem Specific Plan: Monitor Clinically Problem Text: 05/25: function not impinged by effusion. but significant exertional symptoms, likely mostly from pleural effusion, but consider tapping the pericardial effusion. Patient had noted on CT scan of chest. (3) ESRD (end stage renal disease) on dialysis Status: Acute Problem Text: 05/23 Patient had to have another port for dialysis placed. Did not have dialysis today. Will have more tomorrow. Patient missed dialysis Saturday. Had dialysis today. (4) Dyslipidemia Status: Chronic Response to Treatment: Stable Problem Text: Continue home medication. (5) HTN (hypertension) Status: Chronic Response to Treatment: Stable Problem Specific Plan: Monitor Clinically Problem Text: Continue patient's medications. Monitor vitals. (6) Constipation Status: Chronic Problem Text: Patient had several BMs yesterday and today. Monitor BMs. Plan/VTE VTE Prophylaxis Ordered?: Yes VS, I&O, 24H, Fishbone Vital Signs/I&O Vital Signs Date Time Temp Pulse Resp B/P (MAP) Pulse Ox O2 Delivery O2 Flow Rate FiO2 05/25/18 06:00 97.3 67 17 152/73 (99) 92 2.0 05/22/18 02:22 Nasal Cannula I&O- Last 24 Hours up to 6 AM 05/25/18 06:00 Intake Total 1120 ml Output Total 2500 ml Balance -1380 ml Laboratory Data 24H LABS Laboratory Tests 2 05/25/18 05:32: Immature Granulocyte % (Auto) 0.3, White Blood Count 6.1, Red Blood Count 3.83L, Hemoglobin 11.8L, Hematocrit 38.1, Mean Corpuscular Volume 99.5H, Mean Corpuscular Hemoglobin 30.8, Mean Corpuscular Hemoglobin Concent 31.0L, Red Cell Distribution Width 12.4, Platelet Count 216, Neutrophils (%) (Auto) 79.3H, Lymphocytes (%) (Auto) 6.6L, Monocytes (%) (Auto) 11.5H, Eosinophils (%) (Auto) 1.8, Basophils (%) (Auto) 0.5, Neutrophils # (Auto) 4.8, Lymphocytes # (Auto) 0.4L, Monocytes # (Auto) 0.7, Eosinophils # (Auto) 0.1, Basophils # (Auto) 0.0, Nucleated Red Blood Cells % (auto) 0.0 05/25/18 05:37: Blood Urea Nitrogen 25H, Creatinine 3.52H, Sodium Level 138, Potassium Level 4.2, Chloride Level 105, Carbon Dioxide Level 22, Anion Gap 11, Glomerular Filtration Rate 13.5L, Calcium Level 8.2L, Phosphorus Level 4.3#, Albumin 2.3L CBC/BMP Laboratory Tests 05/25/18 05:32 Red Blood Count 3.83 L, Mean Corpuscular Volume 99.5 H, Mean Corpuscular He moglobin 30.8, Mean Corpuscular Hemoglobin Concent 31.0 L, Red Cell Distribution Width 12.4, Neutrophils (%) (Auto) 79.3 H, Lymphocytes (%) (Auto) 6.6 L, Monocytes (%) (Auto) 11.5 H, Eosinophils (%) (Auto) 1.8, Basophils (%) (Auto) 0.5, Neutrophils # (Auto) 4.8, Lymphocytes # (Auto) 0.4 L, Monocytes # (Auto) 0.7, Eosinophils # (Auto) 0.1, Basophils # (Auto) 0.0 05/25/18 05:37 Anion Gap 11 Microbiology Microbiology 05/21/18 Blood Culture - Preliminary, Resulted No Growth after 72 hours. All specime... 05/21/18 Blood Culture - Preliminary, Resulted No Growth after 72 hours. All specime... 05/21/18 Urine Culture - Final, Complete Ahsan Patino MD May 25, 2018 09:30
[2018-05-25 09:39] VITALS: BP 120/60
[2018-05-25] MEDS: OMEPRAZOLE 20 MG CAP PO SCH (09:54)
[2018-05-25] MEDS: ATENOLOL 50 MG TAB PO SCH (09:54)
[2018-05-25] MEDS: **hydrALAZINE** 50 MG TAB PO SCH ×3 (09:55→21:58)
--- NOTE | 2018-05-25 10:28 | ECGEPIP ---
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 Increased atrial ectopic activity but otherwise unchanged from 05/21/18. Electronically Signed On 05-25-2018 10:27:37 EST by Jett Nagy
[2018-05-25 11:12] VITALS: BP 177/73
[2018-05-25] MEDS: ACETAMINOPHEN TAB 650MG DOSE (2X325MG) PO PRN (11:49)
[2018-05-25 14:00] VITALS: BP 118/78
[2018-05-25] MEDS ORDERED: HEPARIN SOD (PORCINE) 5000 UNITS/ML VIAL SC SCH (14:00)
[2018-05-25] MEDS: AMITRIPTYLINE 10 MG TAB PO SCH (21:57)
[2018-05-25] MEDS: ASPIRIN 81 MG ENTERIC TAB PO SCH (21:58)
[2018-05-25] MEDS: GABAPENTIN 300 MG CAP PO SCH (21:58)
[2018-05-25 22:00] VITALS: BP 139/71
[2018-05-26 06:00] VITALS: BP 148/76
[2018-05-26 06:08] LABS: HEMATOCRIT 34.6 % (36.0-47.0); HEMOGLOBIN 10.6 g/dl (12.0-15.5); MEAN CORPUSCULAR HEMOGLOBIN 30.3 pg (27.0-33.0); MEAN CORPUSCULAR HGB CONC 30.6 g/dl (32.0-36.5); MEAN CORPUSCULAR VOLUME 98.9 fl (80.0-96.0); PLATELET COUNT, AUTOMATED 265 10^3/uL (150-450); WHITE BLOOD COUNT 6.4 10^3/uL (4.0-10.0)
[2018-05-26] MEDS: LEVOTHYROXINE 25MCG TABLET (0.025MG) PO SCH (06:26)
[2018-05-26] MEDS: LEVOTHYROXINE 150MCG TABLET (0.15MG) PO SCH (06:26)
[2018-05-26 06:35] LABS: ALBUMIN 2.5 GM/DL (3.2-5.2); CALCIUM LEVEL 8.3 MG/DL (8.8-10.2); CREATININE FOR GFR 4.88 MG/DL (0.55-1.30); GLOMERULAR FILTRATION RATE 9.2 (>39); PHOSPHORUS LEVEL 6.3 MG/DL (2.5-4.9); POTASSIUM SERUM 4.2 MEQ/L (3.5-5.1)
--- NOTE | 2018-05-26 06:55 | IPN ---
DATE OF VISIT: 05/25/2018 HISTORY OF PRESENT ILLNESS: Mrs. Romero is seen this morning on her bedside. She is feeling slightly better compared to yesterday; however she still gets short of breath on any exertion. She is known to have a large left and moderate sized right pleural effusion and a pericardial effusion. She was dialyzed yesterday and she tolerated her dialysis treatment very well. We were able to remove about 2500 mL of fluid. She denies any nausea or vomiting. She still very weak and has difficulty ambulating. PHYSICAL EXAMINATION: Vital signs: Temperature 98 degrees Fahrenheit, heart rate about 100 per minute and respiratory rate 16 per minute. Blood pressure 120/60 mmHg and oxygen saturation 93% on room air. HEENT: Atraumatic. Neck is supple and jugular venous distention (JVD) is not abnormally elevated. She has a left internal jugular vein Perma-Cath in place. Her oral mucosa and lips are dry. There is no thrush or ulcers. Heart: Sounds are somewhat irregular. Lungs: Diminished breath sounds at dependent parts bilaterally. Heart: Sounds are regular with a systolic murmur grade 2/6. Abdomen: Soft and nontender and bowel sounds are normal. Extremities: No cyanosis or clubbing. Her left forearm arteriovenous (AV) fistula seems partially patent. Neurologically: She is awake, alert and oriented times three. LABORATORY DATA: Today's labs show WBC count 6.1, hemoglobin 11.8 and hematocrit 38.1. Sodium 138, potassium 4.2, CO2 22, BUN 25 and creatinine 3.52. Calcium 8.2 and phosphorus 4.3. PROBLEMS: 1. End-stage renal disease. The patient was dialyzed on Saturday. We will plan to dialyze her again tomorrow. She has a pericardial effusion and we want to perform frequent dialysis and see if that will help to clear her pericardial effusion. 2. Congestive heart failure and pleural effusions. The patient has bilateral pleural effusions and the primary care team is going to get a left thoracentesis done tomorrow. This could not be done on Saturday as interventional radiology service was not available. In any event, the patient is oxygenating about 90% on room air and she is not short of breath at rest. She does get short of breath on exertion and needs to get that pleural effusion drained. We will also try to remove as much fluid as possible with dialysis. 3. Anemia. Her anemia is mild and stable and does not need any intervention. 4. Constipation. Her main problem for hospitalization was severe constipation and no bowel movement for three weeks. However, she is moving her bowels and denies any abdominal pain.
[2018-05-26] MEDS: ATENOLOL 50 MG TAB PO SCH (09:00)
[2018-05-26] MEDS: **hydrALAZINE** 50 MG TAB PO SCH ×3 (09:18→21:12)
[2018-05-26] MEDS: OMEPRAZOLE 20 MG CAP PO SCH (09:18)
[2018-05-26] MEDS: amLODIPine 10 MG TAB PO SCH (09:18)
[2018-05-26] MEDS ORDERED: HEPARIN 1,000 UNITS/ML 10ML VIAL (FOR RADIOLOGY& DIALYSIS ONLY) XX ONE (11:00)
[2018-05-26] MEDS ORDERED: HEPARIN 1,000 UNITS/ML 10ML VIAL (FOR RADIOLOGY& DIALYSIS ONLY) IV ONE (11:00)
--- NOTE | 2018-05-26 12:51 | REP ---
Clinical: Follow up effusion. Technique: PA and lateral. Comparison: 05/24/2018. Findings: Moderate left and small to moderate right pleural effusions along with associated bibasilar atelectasis are essentially unchanged. Cardiomegaly again noted. Double-lumen dialysis catheter with tip in the SVC. Skeletal structures stable. Impression: Pleural effusions and bibasilar atelectasis essentially unchanged. Electronically Signed by Carmine Johnson MD 05/26/2018 11:01 A
[2018-05-26 12:56] LABS: SOURCE, BODY FLUID PLEURAL
[2018-05-26 12:57] LABS: APPEARANCE, BODY FLUID HAZY (CLEAR); PLEURAL FL COLOR YELLOW (COLORLESS)
--- NOTE | 2018-05-26 12:57 | IPNPDOC ---
Subjective Date Seen The patient was seen on 05/26/18. Subjective Chief Complaint/HPI Patient reports still feeling tired. Sitting up in chair. Objective Physical Examination General Exam: Positive: Alert, Cooperative, No Acute Distress Eye Exam: Positive: PERRLA Neck Exam: Positive: Supple Chest Exam: Positive: Diminished (bilaterally) Heart Exam: Negative: Tachycardic, Murmurs Abdomen Exam: Positive: Normal bowel sounds Extremity Exam: Negative: Clubbing Skin Exam: Negative: Rash Psych Exam: Positive: Mental status NL Assessment /Plan Problems (1) Pleural effusion Status: Acute Problem Text: 05/26 Consulted IR for thoracocentesis today. Held morning Heparin. Culture and gram stain and analyze fluid. Suspect secondary to renal failure. 05/24 Will reevaluate patient's lungs after dialysis today. Order chest radiograph. Consider pleurocentesis if does not improve. 05/23 Consider having pleurocentesis tomorrow. IR was unavailable today. Consider Pulmonology tomorrow. Bilateral pleural effusions noted on CT scan Chest. Will discuss possible pleurocentesis. Monitor vitals. (2) Pericardial effusion Status: Acute Problem Text: 05/26 Reevaluate after thoracocentesis and dialysis today. 05/24 Monitor symptoms. Had present on admission. Patient had noted on CT scan of chest. (3) ESRD (end stage renal disease) on dialysis Status: Acute Problem Text: 05/26 Continue dialysis per nephrology. 05/23 Patient had to have another port for dialysis placed. Did not have dialysis today. Will have more tomorrow. Patient missed dialysis Saturday. Had dialysis today. (4) Dyslipidemia Status: Chronic Problem Text: Continue home medication. (5) HTN (hypertension) Status: Chronic Problem Text: Continue patient's medications. Monitor vitals. (6) Constipation Status: Chronic Problem Text: 05/26 continue PRN 05/24 Change medications to prn from scheuled for now. Patient had several BMs yesterday and today. Monitor BMs. Plan/VTE VTE Prophylaxis Ordered?: Yes VS, I&O, 24H, Fishbone Vital Signs/I&O Vital Signs Date Time Temp Pulse Resp B/P (MAP) Pulse Ox O2 Delivery O2 Flow Rate FiO2 05/26/18 09:18 63 148/76 05/26/18 06:00 98.2 19 93 05/25/18 22:00 2.0 05/22/18 02:22 Nasal Cannula I&O- Last 24 Hours up to 6 AM 05/26/18 06:00 Intake Total 1240 ml Output Total 600 ml Balance 640 ml Laboratory Data 24H LABS Laboratory Tests 2 05/26/18 05:37: Nucleated Red Blood Cells % (auto) 0.0, Blood Urea Nitrogen 37H, Creatinine 4.88H, Sodium Level 139, Potassium Level 4.2, Chloride Level 104, Carbon Dioxide Level 27, Anion Gap 8, Glomerular Filtration Rate 9.2L, Calcium Level 8.3L, Phosphorus Level 6.3#H, Albumin 2.5L 05/26/18 11:28: CBC/BMP Laboratory Tests 05/26/18 05:37 Red Blood Count 3.50 L, Mean Corpuscular Volume 98.9 H, Mean Corpuscular Hemoglobin 30.3, Mean Corpuscular Hemoglobin Concent 30.6 L, Red Cell Distribution Width 12.4, Anion Gap 8 Microbiology Microbiology 05/21/18 Blood Culture - Preliminary, Resulted No Growth after 72 hours. All specime... 05/21/18 Blood Culture - Preliminary, Resulted No Growth after 72 hours. All specime... 05/26/18 Gram Stain, Received Pending 05/26/18 Body Fluid Culture, Received Pending 05/21/18 Urine Culture - Final, Complete GME ATTESTATION GME ATTESTATION My faculty preceptor for this patient encounter was physically present during the encounter and was fully available. All aspects of the patient interview, examination, medical decision making process, and medical care plan development were reviewed and approved by the faculty preceptor. The faculty preceptor is aware and concurs with the plan as stated in the body of this note and will attest to such by his/her cosignature. AGAPITO DOWD DO May 26, 2018 12:57
[2018-05-26 13:15] LABS: LDH, BODY FLUID 144 U/L (NOT ESTABLISHED); SOURCE, BODY FLUID ALBUMIN PLEURAL; SOURCE, BODY FLUID LDH PLEURAL; SOURCE, BODY FLUID TOT PROTEIN THORACENTESIS; TOTAL PROTEIN, BODY FLUID 3.2 G/DL (NOT ESTABLISHED)
[2018-05-26 13:30] VITALS: BP 158/64
--- NOTE | 2018-05-26 13:48 | REP ---
Chest x-ray: Two views. History: Post left thoracentesis radiographs. Comparison radiographs are from 10:43 a.m. on this date. Findings: The left pleural effusion is much improved with improved aeration in the left lower lobe. There is some residual discoid atelectasis in the left perihilar region. Right pleural effusion persists along with cardiomegaly. A tunnel catheter is again noted. Impression: No pneumothorax seen. Improved aeration left lung. Decreased left effusion. Electronically Signed by Raphael Fuentes MD 05/26/2018 02:42 P
[2018-05-26 14:00] VITALS: BP 146/60
[2018-05-26] MEDS: HEPARIN SOD (PORCINE) 5000 UNITS/ML VIAL SC SCH ×2 (14:30→21:09)
[2018-05-26] MEDS: ACETAMINOPHEN TAB 650MG DOSE (2X325MG) PO PRN ×2 (14:31→21:11)
[2018-05-26 18:01] LABS: TOTAL PROTEIN 6.8 GM/DL (6.4-8.2)
[2018-05-26] MEDS: GABAPENTIN 300 MG CAP PO SCH (21:09)
[2018-05-26] MEDS: ASPIRIN 81 MG ENTERIC TAB PO SCH (21:09)
[2018-05-26] MEDS: AMITRIPTYLINE 10 MG TAB PO SCH (21:09)
[2018-05-26] MEDS: NYSTATIN 100,000 UNITS/GM TOPICAL PWD 15 GM TOP SCH (21:41)
[2018-05-26 22:00] VITALS: BP 147/69
[2018-05-27] MEDS: LEVOTHYROXINE 150MCG TABLET (0.15MG) PO SCH (05:41)
[2018-05-27] MEDS: LEVOTHYROXINE 25MCG TABLET (0.025MG) PO SCH (05:41)
[2018-05-27] MEDS: ACETAMINOPHEN TAB 650MG DOSE (2X325MG) PO PRN ×4 (05:42→21:54)
[2018-05-27] MEDS: HEPARIN SOD (PORCINE) 5000 UNITS/ML VIAL SC SCH ×3 (05:42→21:52)
[2018-05-27 06:00] VITALS: BP 142/78
--- NOTE | 2018-05-27 07:04 | IPN ---
DATE OF SERVICE: 05/26/2018 SUBJECTIVE: The patient was seen and examined at the bedside today morning. She had just come back after a thoracentesis. She reports that 1200 mL of fluid was removed from the lung. Today the patient is also going for hemodialysis as well because of pleural and pericardial effusions. The patient is otherwise afebrile and hemodynamically stable. OBJECTIVE: Vital Signs: Temperature 98.2 degrees Fahrenheit, blood pressure 148/76, pulse 63, respiratory rate 18, saturating 93% on nasal cannula at 2 liters. Intake and Output: Urine output recorded as 225 mL. Thoracentesis is 1200 mL from left lung. Weight on the bed scale is 92 kg. PHYSICAL EXAMINATION: General: The patient is awake, alert and oriented times three, laying in bed in no apparent distress. Head and Neck Exam: Extraocular muscles intact. Pupils equally round and reactive to light. Mucous membranes are moist. Neck is supple. There is no jugular venous distention (JVD). Left internal jugular (IJ) tunneled hemodialysis catheter is noted. Cardiovascular: S1 and S2. Systolic murmur is noted. Trace edema of the bilateral lower extremities. Respiratory: Mildly decreased breath sounds at the bases. No active rales or rhonchi. Abdomen: Soft. Obese. Positive bowel sounds. I could not appreciate organomegaly. Musculoskeletal: No clubbing or cyanosis. Pulses are 2+. Central Nervous System (K9 HANDLER): No focal deficit. Power is 5/5 in bilateral upper extremities. LAB REVIEW: CBC showed a WBC of 6.4, hemoglobin 10.6 and platelets 265. BMP showed sodium 139, potassium 4.2, chloride 104, bicarbonate 27, BUN 37, creatinine 4.8, calcium 8.3, phosphorus 6.3. MICROBIOLOGY: Cultures are negative so far. CURRENT INPATIENT MEDICATIONS: Patient's medications were all reviewed by me. Her amlodipine dose has been stopped. No other change in the medications today as compared with yesterday. ASSESSMENT AND PLAN: 1. End stage renal disease on hemodialysis. Patient is dialysis dependent. Her regular dialysis days are Saturday, , Saturday. However, because of pleural and pericardial effusion, the patient is getting daily hemodialysis now. She will get dialysis today and 2.5 liters of fluid will be removed. Because of the pericardial effusion, I have decreased the heparin dose to 2000 units on onset. 2. 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 The patient has pleural effusions and pericardial effusion. She got the left sided pleural effusion tapped today. For pericardial effusion, I am going to do her hemodialysis now every day. 3. Anemia and end stage renal disease. Hemoglobin is 10.6 which is optimal. 4. Hypertension with hypertensive heart disease. Because of the systolic congestive heart failure, I am stopping the amlodipine dose. Continue current dose of atenolol 100 mg by mouth daily. Continue current dose of hydralazine 50 mg by mouth three times a day. The rest of the blood pressure management will be done after her fluid status is optimized.
[2018-05-27 07:50] LABS: ALBUMIN 2.4 GM/DL (3.2-5.2); CALCIUM LEVEL 8.2 MG/DL (8.8-10.2); CREATININE FOR GFR 3.73 MG/DL (0.55-1.30); GLOMERULAR FILTRATION RATE 12.6 (>39); PHOSPHORUS LEVEL 4.6 MG/DL (2.5-4.9); POTASSIUM SERUM 4.7 MEQ/L (3.5-5.1)
--- NOTE | 2018-05-27 08:23 | REP ---
Ultrasound guided left thoracentesis: History: Bilateral pleural effusions. Left greater than right. Comparison chest x-ray May 24, 2018. Comparison chest CT study May 22, 2018. Procedure: The patient was interviewed and informed consent was obtained. Preliminary left posterior thoracic ultrasound confirmed left pleural effusion and an optimal posterior interspace was chosen. The skin was marked. After patient safety time-out was articulated and agreed to, the area of the left posterior chest wall was prepped and draped in the usual fashion. 1% lidocaine was utilized for local anesthetic. A 8-[place] thoracocentesis catheter was placed with trocar technique without technical difficulty. 1120 mL of blood-tinged kwadwo fluid was withdrawn. A sample was submitted for diagnostic analysis. The patient tolerated the procedure well. Impression: Ultrasound guided left thoracentesis. Electronically Signed by Raphael Fuentes MD 05/26/2018 02:43 P
[2018-05-27] MEDS: NYSTATIN 100,000 UNITS/GM TOPICAL PWD 15 GM TOP SCH ×2 (09:00→21:54)
[2018-05-27] MEDS: ATENOLOL 50 MG TAB PO SCH (09:49)
[2018-05-27] MEDS: OMEPRAZOLE 20 MG CAP PO SCH (09:49)
[2018-05-27] MEDS: **hydrALAZINE** 50 MG TAB PO SCH ×3 (09:49→21:52)
[2018-05-27] MEDS ORDERED: HEPARIN 1,000 UNITS/ML 10ML VIAL (FOR RADIOLOGY& DIALYSIS ONLY) XX ONE (11:00)
[2018-05-27] MEDS ORDERED: HEPARIN 1,000 UNITS/ML 10ML VIAL (FOR RADIOLOGY& DIALYSIS ONLY) IV ONE (11:00)
[2018-05-27 14:00] VITALS: BP 118/60
[2018-05-27 15:07] LABS: C REACTIVE PROTEIN QUANTITATIV 18.9 MG/DL (0.00-0.30)
--- NOTE | 2018-05-27 17:09 | IPNPDOC ---
Subjective Date Seen The patient was seen on 05/27/18. Subjective Chief Complaint/HPI Patient reports still feeling tired but better than before. Denies any coughing. Still having some pain following the thoracocentesis, gets better with Tylenol. Constitutional: Denies: Chills, Fever Pulmonary: Denies: Dyspnea Cardiovascular: Denies: Chest Pain Objective Physical Examination General Exam: Positive: Alert, Cooperative, No Acute Distress Eye Exam: Positive: PERRLA Neck Exam: Positive: Supple Chest Exam: Positive: Clear to auscultation (on the left. ), Diminished (on the right. ) Heart Exam: Negative: Tachycardic, Murmurs Abdomen Exam: Positive: Normal bowel sounds Extremity Exam: Negative: Clubbing Skin Exam: Negative: Rash Psych Exam: Positive: Mental status NL Assessment /Plan Problems (1) Pleural effusion Status: Acute Problem Text: 05/27 Patient's breathing improved today. Still tired. Fluid analysis indicates an exudative effusion. Likely secondary to renal failure. Ordering labs for other causes such as lupus. 05/26 Consulted IR for thoracocentesis today. Held morning Heparin. Culture and gram stain and analyze fluid. Suspect secondary to renal failure. 05/24 Will reevaluate patient's lungs after dialysis today. Order chest ra diograph. Consider pleurocentesis if does not improve. 05/23 Consider having pleurocentesis tomorrow. IR was unavailable today. Consider Pulmonology tomorrow. Bilateral pleural effusions noted on CT scan Chest. Will discuss possible pleurocentesis. Monitor vitals. (2) Pericardial effusion Status: Acute Problem Text: 05/27 Patient will have daily dialysis to help remove more fluid. 05/26 Reevaluate after thoracocentesis and dialysis today. 05/24 Monitor symptoms. Had present on admission. Patient had noted on CT scan of chest. (3) ESRD (end stage renal disease) on dialysis Status: Acute Problem Text: 05/26 Continue dialysis per nephrology. 05/23 Patient had to have another port for dialysis placed. Did not have dialysis today. Will have more tomorrow. Patient missed dialysis Saturday. Had dialysis today. (4) Dyslipidemia Status: Chronic Problem Text: Continue home medication. (5) HTN (hypertension) Status: Chronic Problem Text: Continue patient's medications. Monitor vitals. (6) Constipation Status: Chronic Problem Text: 05/26 continue PRN 05/24 Change medications to prn from scheuled for now. Patient had several BMs yesterday and today. Monitor BMs. Plan/VTE VTE Prophylaxis Ordered?: Yes VS, I&O, 24H, Fishbone Vital Signs/I&O Vital Signs Date Time Temp Pulse Resp B/P (MAP) Pulse Ox O2 Delivery O2 Flow Rate FiO2 05/27/18 15:22 118/60 05/27/18 14:00 96.9 57 19 95 2.0 05/22/18 02:22 Nasal Cannula I&O- Last 24 Hours up to 6 AM 05/27/18 06:00 Intake Total 600 ml Output Total 2625 ml Balance -2025 ml Laboratory Data 24H LABS Laboratory Tests 2 05/26/18 17:18: Lactate Dehydrogenase 183, Total Protein 6.8 05/27/18 06:59: Blood Urea Nitrogen 27H, Creatinine 3.73H, Sodium Level 137, Potassium Level 4.7, Chloride Level 102, Carbon Dioxide Level 28, Anion Gap 7L, Glomerular Filtration Rate 12.6L, Calcium Level 8.2L, Phosphorus Level 4.6#, C-Reactive Protein, Quantitative 18.90H, Albumin 2.4L CBC/BMP Laboratory Tests 05/27/18 06:59 Anion Gap 7 L Microbiology Microbiology 05/21/18 Blood Culture - Final, Complete NO GROWTH AFTER 5 DAYS 05/21/18 Blood Culture - Final, Complete NO GROWTH AFTER 5 DAYS 05/26/18 Gram Stain - Final, Resulted 05/26/18 Body Fluid Culture, Resulted Pending 05/21/18 Urine Culture - Final, Complete GME ATTESTATION GME ATTESTATION My faculty preceptor for this patient encounter was physically present during the encounter and was fully available. All aspects of the patient interview, examination, medical decision making process, and medical care plan development were reviewed and approved by the faculty preceptor. The faculty preceptor is aware and concurs with the plan as stated in the body of this note and will attest to such by his/her cosignature. AGAPITO DOWD DO May 27, 2018 17:09
[2018-05-27] MEDS: GABAPENTIN 300 MG CAP PO SCH (21:52)
[2018-05-27] MEDS: AMITRIPTYLINE 10 MG TAB PO SCH (21:52)
[2018-05-27] MEDS: ASPIRIN 81 MG ENTERIC TAB PO SCH (21:52)
[2018-05-27 22:00] VITALS: BP 151/83
--- NOTE | 2018-05-28 00:03 | IPN ---
DATE: 05/27/2018 SUBJECTIVE: The patient was seen and examined at the bedside today, morning, during hemodialysis. She was tolerating the hemodialysis procedure well. She does report some central chest pain radiating to the back. She is being dialyzed via the left internal jugular (IJ) tunneled hemodialysis catheter. She was dialyzed yesterday as well and 2.5 liters of fluid was removed. OBJECTIVE: VITAL SIGNS: Temperature is 98.2 degrees Fahrenheit, blood pressure 142/78, pulse is 72, respiratory rate of 18, saturating 94% on nasal cannula at two liters. INTAKE/OUTPUT: Urine output recorded as 100 mL. Weight on the bed scale is 89.9 kg. Ultrafiltration with hemodialysis was 2.5 liters yesterday. PHYSICAL EXAMINATION: GENERAL: The patient is awake, alert, oriented times three, laying in bed, getting hemodialysis done, in no apparent distress. HEAD AND NECK EXAM: Extraocular muscles intact. Pupils equally round and reactive to light. Mucous membranes are moist. Neck is supple. There is no jugular venous distention (JVD). She has a left IJ tunneled hemodialysis catheter. CARDIOVASCULAR: S1, S2. The patient has a systolic murmur and pericardial rub is also noted. RESPIRATORY: Mildly decreased breath sounds at the bases. No active rales or rhonchi. ABDOMEN: Abdomen is soft, obese, positive bowel sounds. MUSCULOSKELETAL: No clubbing or cyanosis. Pulses are 2+. CENTRAL NERVOUS SYSTEM: No focal deficit. Power is 5/5 in all extremities. LAB REVIEW: CBC showed a WBC of 6.4, hemoglobin is 10.6, platelets are 265. BMP showed sodium 137, potassium 4.7, chloride 102, bicarbonate 28, BUN 27, creatinine is 3.7, calcium 8.2, phosphorus is 4.6. C-reactive protein is 18.9. Albumin is 2.4. CURRENT INPATIENT MEDICATIONS: The patient's medications were all reviewed by me. There is no change in the medications today as compared with yesterday. ASSESSMENT AND PLAN: 1. End-stage renal disease, on hemodialysis. Patient came in with pleural and pericardial effusions. The patient is getting daily hemodialysis. 2.5 liters of ultrafiltration was done yesterday. I will try to do another session of fluid removal with hemodialysis today and about 2.5 liters will be removed. I have further decreased the heparin dose to 2000 units initial dose and 500 units hourly and tomorrow I will do heparin-free dialysis. 2. 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 Patient had pleural effusion and pericardial effusion. She got left-sided pleural tap done yesterday. She is getting serial fluid removals with each hemodialysis session. 3. Pericardial effusion. The patient has dialysis-associated pericardial effusion. She is getting aggressive hemodialysis and fluid removal. From tomorrow onwards, I will do her heparin-free dialysis to further improve the pericardial effusion, and I would do her echocardiogram by the end of this week. 4. Anemia in end-stage renal disease. She is currently not on Aranesp. Hemoglobin is 10.6, which is dropping. I am going to start the patient on Aranesp 100 mcg with hemodialysis. 5. Hypertension with hypertensive heart disease. Amlodipine was stopped because of systolic and diastolic congestive heart failure. Continue current dose of atenolol. Continue hydralazine. Blood pressure is also getting better with daily hemodialysis and fluid removal. MTDD
[2018-05-28] MEDS: LEVOTHYROXINE 25MCG TABLET (0.025MG) PO SCH (05:46)
[2018-05-28] MEDS: ATENOLOL 50 MG TAB PO SCH (05:46)
[2018-05-28] MEDS: OMEPRAZOLE 20 MG CAP PO SCH (05:46)
[2018-05-28] MEDS: HEPARIN SOD (PORCINE) 5000 UNITS/ML VIAL SC SCH (05:46)
[2018-05-28] MEDS: LEVOTHYROXINE 150MCG TABLET (0.15MG) PO SCH (05:46)
[2018-05-28] MEDS: ACETAMINOPHEN TAB 650MG DOSE (2X325MG) PO PRN ×2 (05:47→17:43)
[2018-05-28] MEDS: NYSTATIN 100,000 UNITS/GM TOPICAL PWD 15 GM TOP SCH ×2 (05:47→21:56)
[2018-05-28] MEDS: **hydrALAZINE** 50 MG TAB PO SCH ×3 (05:47→21:00)
[2018-05-28 06:00] VITALS: BP 144/69
--- NOTE | 2018-05-28 07:32 | IPNPDOC ---
Subjective Date Seen The patient was seen on 05/28/18. Subjective Chief Complaint/HPI CHF, ESRD Events since last encounter Continue with daily HD per Nephrology. Diuresing well. Net negative of -1950. also -2500 ml from HD fluid removal. patient denies c/o today. Started PT yesterday. Constitutional: Denies: Chills, Fever, Night Sweats Pulmonary: Reports: Dyspnea; Denies: Cough Cardiovascular: Reports: Edema; Denies: Chest Pain, Palpitations, Orthopnea, Paroxysmal Noc. Dyspnea, Lt Headedness Gastrointestinal: Denies: Nausea, Vomiting, Abdominal Pain, Diarrhea, Constipation Genitourinary: Denies: Dysuria, Frequency, Incontinence, Retention Psych: Reports: Mood Normal; Denies: Depression, Memory Issues Objective Physical Examination General Exam: Positive: Alert, Cooperative, No Acute Distress Eye Exam: Positive: PERRLA Neck Exam: Positive: Supple Chest Exam: Positive: Diminished (bilaterally) Heart Exam: Negative: Tachycardic, Murmurs Abdomen Exam: Positive: Normal bowel sounds Extremity Exam: Negative: Clubbing Skin Exam: Negative: Rash Psych Exam: Positive: Mental status NL Assessment /Plan Problems (1) Pleural effusion Status: Acute Problem Text: 05/28/18: Repeat CXR today. 05/26 Consulted IR for thoracocentesis today. Held morning Heparin. Culture and gram stain and analyze fluid. Suspect secondary to renal failure. 05/24 Will reevaluate patient's lungs after dialysis today. Order chest radiograph. Consider pleurocentesis if does not improve. 05/23 Consider having pleurocentesis tomorrow. IR was unavailable today. Consider Pulmonology tomorrow. Bilateral pleural effusions noted on CT scan Chest. Will discuss possible pleurocentesis. Monitor vitals. (2) Pericardial effusion Status: Acute Problem Text: 05/28/18: continues to diurese well. 2.5 L removed daily via dialysis. 05/26 Reevaluate after thoracocentesis and dialysis today. 05/24 Monitor symptoms. Had present on admission. Patient had noted on CT scan of chest. (3) ESRD (end stage renal disease) on dialysis Status: Acute Problem Text: 05/26 Continue dialysis per nephrology. 05/23 Patient had to have another port for dialysis placed. Did not have dialysis today. Will have more tomorrow. Patient missed dialysis Saturday. Had dialysis today. (4) Dyslipidemia Status: Chronic Problem Text: Continue home medication. (5) HTN (hypertension) Status: Chronic Problem Text: Continue patient's medications. Monitor vitals. (6) Constipation Status: Chronic Problem Text: 05/28/18: Encourage nursing to give prn bowel meds. 05/26 continue PRN 05/24 Change medications to prn from scheuled for now. Patient had several BMs yesterday and today. Monitor BMs. Plan/VTE VTE Prophylaxis Ordered?: Yes VS, I&O, 24H, Fishbone Vital Signs/I&O Vital Signs Date Time Temp Pulse Resp B/P (MAP) Pulse Ox O2 Delivery O2 Flow Rate FiO2 05/28/18 06:00 97.2 77 18 144/69 (94) 93 2.0 05/22/18 02:22 Nasal Cannula I&O- Last 24 Hours up to 6 AM 05/28/18 06:00 Intake Total 650 ml Output Total 2500 ml Balance -1850 ml Laboratory Data Microbiology Microbiology 05/21/18 Blood Culture - Final, Complete NO GROWTH AFTER 5 DAYS 05/21/18 Blood Culture - Final, Complete NO GROWTH AFTER 5 DAYS 05/26/18 Gram Stain - Final, Resulted 05/26/18 Body Fluid Culture, Resulted Pending 05/21/18 Urine Culture - Final, Complete Mehnaz Walls MAIL ORDER CLERK May 28, 2018 07:32
--- NOTE | 2018-05-28 08:32 | REP ---
Clinical: Status post thoracentesis. Technique: PA and lateral. Comparison: 05/26/2018. Findings: Moderate pleural effusions and lower lobe opacity/atelectasis (left greater than right) are again noted and similar to prior examination. Visualized mediastinum and cardiac silhouette are stable. Double-lumen dialysis catheter with tip in the SVC. No obvious pneumothorax. Skeletal structures are stable. Impression: Moderate pleural effusions and bilateral lower lobe opacities (left greater than right) essentially unchanged. Electronically Signed by Carmine Johnson MD 05/28/2018 08:24 A
[2018-05-28] MEDS ORDERED: HEPARIN 1,000 UNITS/ML 10ML VIAL (FOR RADIOLOGY& DIALYSIS ONLY) XX ONE (10:00)
[2018-05-28 10:01] LABS: BASO # 0.1 10^3/uL (0.0-0.2); BASO % 0.8 % (0.0-1.0); EOS # 0.3 10^3/uL (0.0-0.50); EOS % 3.2 % (0.0-3.0); HEMATOCRIT 34.6 % (36.0-47.0); HEMOGLOBIN 10.8 g/dl (12.0-15.5); LYMPH # 0.7 10^3/uL (1.5-4.5); LYMPH % 7.7 % (24.0-44.0); MEAN CORPUSCULAR HEMOGLOBIN 30.9 pg (27.0-33.0); MEAN CORPUSCULAR HGB CONC 31.2 g/dl (32.0-36.5); MEAN CORPUSCULAR VOLUME 99.1 fl (80.0-96.0); MONO # 0.9 10^3/uL (0.0-0.8); NEUTROPHILS # 6.8 10^3/uL (1.8-7.7); NEUTROPHILS % 77.6 % (36.0-66.0); PLATELET COUNT, AUTOMATED 243 10^3/uL (150-450); RED BLOOD COUNT 3.49 10^6/uL (4.00-5.40); WHITE BLOOD COUNT 8.7 10^3/uL (4.0-10.0)
[2018-05-28 10:42] LABS: BLOOD UREA NITROGEN 28 MG/DL (7-18); CALCIUM LEVEL 8.3 MG/DL (8.8-10.2); CARBON DIOXIDE LEVEL 26 MEQ/L (21-32); CHLORIDE LEVEL 102 MEQ/L (98-107); CREATININE FOR GFR 3.63 MG/DL (0.55-1.30); GLUCOSE, FASTING 146 MG/DL (70-100); POTASSIUM SERUM 4.2 MEQ/L (3.5-5.1); RHEUMATOID FACTOR QUANT < 10.0 IU/ML (<15.0); SODIUM LEVEL 138 MEQ/L (136-145)
[2018-05-28] MEDS ORDERED: DARBEPOETIN 100 MCG/0.5 ML *DIALYSIS* SYRINGE (J0882) IV SCH (11:45)
--- NOTE | 2018-05-28 14:59 | IPN ---
DATE: 05/28/2018 SUBJECTIVE: Patient was seen and examined at the bedside today, morning. She was sitting in the sofa. Patient reports that she is feeling weak and tired. She was dialyzed yesterday; 2.5 liters of fluid was removed. She just came back after getting the chest x-ray done, which showed bilateral pleural effusions left more than right. OBJECTIVE: VITAL SIGNS: Temperature is 97.2 degrees Fahrenheit, blood pressure is 144/69, pulse is 77, respiratory rate of 18, saturating 93% on 2 liters via nasal cannula. INTAKE/OUTPUT: Urine output is not recorded today. Ultrafiltration with hemodialysis was 2.5 liters. Weight on the bed scale is 88.7 kg. PHYSICAL EXAMINATION: GENERAL: Patient is awake, alert, oriented times three, morbidly obese, sitting up in the sofa, in no apparent distress. HEAD AND NECK EXAM: Extraocular muscles intact. Pupils equally round and reactive to light. Mucous membranes are moist. Neck is supple. There is no jugular venous distention (JVD). She has a left internal jugular (IJ) tunneled hemodialysis catheter. CARDIOVASCULAR: S1, S2. Systolic murmur and pericardial rub was noted. Trace edema of the bilateral lower extremities. RESPIRATORY: Decreased breath sounds at the bases, right is more than left. Decreased vocal resonance bilaterally at the bases and on the right side is even up to the right mid lung zone. ABDOMEN: Is soft, obese. Positive bowel sounds. MUSCULOSKELETAL: No clubbing or cyanosis. Pulses are 2+. CENTRAL NERVOUS SYSTEM (DIRECTOR FURNITURE): No focal deficit. Power is 5/5 in bilateral extremities. LAB REVIEW: CBC showed a WBC 8.7, hemoglobin 10.8, platelets are 243. BMP showed sodium 138, potassium 4.2, chloride 102, bicarbonate 26, BUN 28, creatinine is 3.6, calcium 8.3. C-reactive protein is 26.5. IMAGING: A chest x-ray was done today, morning, which showed moderate pleural effusions and bilateral lower lobe opacities, left is greater than right. CURRENT INPATIENT MEDICATIONS: Patient's medications were all reviewed by me. I stopped the subcu heparin as well. No other change in the medications today as compared with yesterday. ASSESSMENT AND PLAN: 1. End-stage renal disease, on hemodialysis. Patient is getting daily hemodialysis at this point because of bilateral pleural effusions and pericardial effusion. Daily fluid removal is done. I will try to remove another 2.5 liters of fluid at hemodialysis. Patient is now going to get heparin free dialysis because of pericardial effusions. 2. 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 As mentioned above, patient has pericardial effusion and pleural effusions. Fluid status is being optimized with daily hemodialysis and fluid removal. 3. Pericardial effusion. I have switched her to heparin free dialysis now, daily hemodialysis, daily fluid removal. I have ordered another repeat echocardiogram to be done today. 4. Bilateral pleural effusions. Patient is status post a left pleural tap done during this hospitalization. Repeat chest x-ray shows persistent bilateral pleural effusions. Continue daily hemodialysis and ultrafiltration. Patient might need a pleural tap to be done on the left side as well. 5. Anemia in end-stage renal disease. Hemoglobin is 10.8, which is optimal. Continue current dose of Aranesp 200 mcg with hemodialysis. 6. Hypertension with hypertensive heart disease. Continue current dose of atenolol. Continue hydralazine. Amlodipine was stopped because of systolic and diastolic congestive heart failure.
[2018-05-28 16:00] VITALS: BP 137/92
[2018-05-28] MEDS: AMITRIPTYLINE 10 MG TAB PO SCH (21:56)
[2018-05-28] MEDS: GABAPENTIN 300 MG CAP PO SCH (21:56)
[2018-05-28] MEDS: ASPIRIN 81 MG ENTERIC TAB PO SCH (21:56)
[2018-05-28 22:00] VITALS: BP 112/57
[2018-05-29 05:10] VITALS: BP 146/63
[2018-05-29 06:00] VITALS: BP 107/53
[2018-05-29] MEDS: OMEPRAZOLE 20 MG CAP PO SCH (06:08)
[2018-05-29] MEDS: LEVOTHYROXINE 25MCG TABLET (0.025MG) PO SCH (06:08)
[2018-05-29] MEDS: NYSTATIN 100,000 UNITS/GM TOPICAL PWD 15 GM TOP SCH ×2 (06:09→21:51)
[2018-05-29] MEDS: LEVOTHYROXINE 150MCG TABLET (0.15MG) PO SCH (06:09)
[2018-05-29] MEDS: **hydrALAZINE** 50 MG TAB PO SCH (06:23)
[2018-05-29] MEDS: ATENOLOL 50 MG TAB PO SCH (06:23)
[2018-05-29 07:36] LABS: BASO # 0.1 10^3/uL (0.0-0.2); BASO % 0.8 % (0.0-1.0); EOS # 0.3 10^3/uL (0.0-0.50); EOS % 2.6 % (0.0-3.0); HEMATOCRIT 38.8 % (36.0-47.0); HEMOGLOBIN 12.2 g/dl (12.0-15.5); LYMPH # 0.8 10^3/uL (1.5-4.5); MEAN CORPUSCULAR HEMOGLOBIN 30.3 pg (27.0-33.0); MEAN CORPUSCULAR HGB CONC 31.4 g/dl (32.0-36.5); MEAN CORPUSCULAR VOLUME 96.3 fl (80.0-96.0); MONO # 1.4 10^3/uL (0.0-0.8); MONO % 11.6 % (0.0-5.0); NEUTROPHILS # 9.1 10^3/uL (1.8-7.7); NEUTROPHILS % 76.9 % (36.0-66.0); PLATELET COUNT, AUTOMATED 221 10^3/uL (150-450); RED BLOOD COUNT 4.03 10^6/uL (4.00-5.40); WHITE BLOOD COUNT 11.9 10^3/uL (4.0-10.0)
[2018-05-29 07:59] LABS: CALCIUM LEVEL 8.9 MG/DL (8.8-10.2); CREATININE FOR GFR 3.42 MG/DL (0.55-1.30); GLOMERULAR FILTRATION RATE 13.9 (>39); POTASSIUM SERUM 4.5 MEQ/L (3.5-5.1)
[2018-05-29] MEDS ORDERED: SENOKOT S TAB PO ONE (11:00)
[2018-05-29] MEDS ORDERED: CALCIUM CARBONATE 500 MG CHEW U/D PO PRN (11:15)
--- NOTE | 2018-05-29 11:19 | IPNPDOC ---
Subjective Date Seen The patient was seen on 05/29/18. Subjective Chief Complaint/HPI Patient is in dialysis during this visit. Complaining of some sharp pain in her chest. Had it yesterday and got better when she ate some food. Denies pain radiating anywhere. Also has a headache. Constitutional: Denies: Chills, Fever ENT: Denies: Head Aches Objective Physical Examination General Exam: Positive: Alert, Cooperative, No Acute Distress Eye Exam: Positive: PERRLA Neck Exam: Positive: Supple Chest Exam: Positive: Diminished (bilaterally) Heart Exam: Negative: Tachycardic, Murmurs Abdomen Exam: Positive: Normal bowel sounds Extremity Exam: Negative: Clubbing Skin Exam: Negative: Rash Psych Exam: Positive: Mental status NL Assessment /Plan Problems (1) Pleural effusion Status: Acute Problem Text: 05/29 Breathing the same today. Xray notes pleural effusions still present, left larger than right. Discussed with Dr. Mendes, thoracic surgery. Will see patient tomorrow. 05/27 Patient's breathing improved today. Still tired. Fluid analysis indicates an exudative effusion. Likely secondary to renal failure. Ordering labs for other causes such as lupus. 05/26 Consulted IR for thoracocentesis today. Held morning Heparin. Culture and gram stain and analyze fluid. Suspect secondary to renal failure. 05/24 Will reevaluate patient's lungs after dialysis today. Order chest radiograph. Consider pleurocentesis if does not improve. 05/23 Consider having pleurocentesis tomorrow. IR was unavailable today. Consider Pulmonology tomorrow. Bilateral pleural effusions noted on CT scan Chest. Will discuss possible pleurocentesis. Monitor vitals. (2) Pericardial effusion Status: Acute Problem Text: 05/29 Patient still has today. Still having daily dialysis. 05/27 Patient will have daily dialysis to help remove more fluid. 05/26 Reevaluate after thoracocentesis and dialysis today. 05/24 Monitor symptoms. Had present on admission. Patient had noted on CT scan of chest. (3) ESRD (end stage renal disease) on dialysis Status: Acute Problem Text: 05/29 Patient had more dialysis today. 05/26 Continue dialysis per nephrology. 05/23 Patient had to have another port for dialysis placed. Did not have dialysis today. Will have more tomorrow. Patient missed dialysis Saturday. Had dialysis today. (4) Orthostatic dizziness Problem Text: Ordered daily orthostats. Has been having more fluid removed via dialysis. Became lightheaded with sitting up on the edge of the bed, although un sure if just in pain. (5) Dyslipidemia Status: Chronic Problem Text: Continue home medication. (6) HTN (hypertension) Status: Chronic Problem Text: Continue patient's medications. Monitor vitals. (7) Constipation Status: Chronic Problem Text: 05/29 Changing to scheduled medications. 05/26 continue PRN 05/24 Change medications to prn from scheuled for now. Patient had several BMs yesterday and today. Monitor BMs. Plan/VTE VTE Prophylaxis Ordered?: Yes VS, I&O, 24H, Fishbone Vital Signs/I&O Vital Signs Date Time Temp Pulse Resp B/P (MAP) Pulse Ox O2 Delivery O2 Flow Rate FiO2 05/29/18 06:23 74 107/53 05/29/18 06:00 97.8 17 94 2.0 I&O- Last 24 Hours up to 6 AM 05/29/18 06:00 Intake Total 470 ml Output Total 2500 ml Balance -2030 ml Laboratory Data 24H LABS Laboratory Tests 2 05/29/18 07:26: Immature Granulocyte % (Auto) 1.1, White Blood Count 11.9H, Red Blood Count 4. 03, Hemoglobin 12.2, Hematocrit 38.8, Mean Corpuscular Volume 96.3H, Mean Corpuscular Hemoglobin 30.3, Mean Corpuscular Hemoglobin Concent 31.4L, Red Cell Distribution Width 12.5, Platelet Count 221, Neutrophils (%) (Auto) 76.9H, Lymphocytes (%) (Auto) 7.0L, Monocytes (%) (Auto) 11.6H, Eosinophils (%) (Auto) 2.6, Basophils (%) (Auto) 0.8, Neutrophils # (Auto) 9.1H, Lymphocytes # (Auto) 0.8L, Monocytes # (Auto) 1.4H, Eosinophils # (Auto) 0.3, Basophils # (Auto) 0.1, Nucleated Red Blood Cells % (auto) 0.0, Anion Gap 11, Glomerular Filtration Rate 13.9L, Blood Urea Nitrogen 25H, Creatinine 3.42H, Sodium Level 136, Potassium Level 4.5, Chloride Level 100, Carbon Dioxide Level 25, Calcium Level 8.9 CBC/BMP Laboratory Tests 05/29/18 07:26 Red Blood Count 4.03, Mean Corpuscular Volume 96.3 H, Mean Corpuscular Hemoglobin 30.3, Mean Corpuscular Hemoglobin Concent 31.4 L, Red Cell Distribution Width 12.5, Neutrophils (%) (Auto) 76.9 H, Lymphocytes (%) (Auto) 7.0 L, Monocytes (%) (Auto) 11.6 H, Eosinophils (%) (Auto) 2.6, Basophils (%) (Auto) 0.8, Neutrophils # (Auto) 9.1 H, Lymphocytes # (Auto) 0.8 L, Monocytes # (Auto) 1.4 H, Eosinophils # (Auto) 0.3, Basophils # (Auto) 0.1, Calcium Level 8.9 Microbiology Microbiology 05/21/18 Blood Culture - Final, Complete NO GROWTH AFTER 5 DAYS 05/21/18 Blood Culture - Final, Complete NO GROWTH AFTER 5 DAYS 05/26/18 Gram Stain - Final, Complete 05/26/18 Body Fluid Culture - Final, Complete 05/21/18 Urine Culture - Final, Complete GME ATTESTATION GME ATTESTATION My faculty preceptor for this patient encounter was physically present during the encounter and was fully available. All aspects of the patient interview, examination, medical decision making process, and medical care plan development were reviewed and approved by the faculty preceptor. The faculty preceptor is aware and concurs with the plan as stated in the body of this note and will attest to such by his/her cosignature. AGAPITO DOWD DO May 29, 2018 11:19
--- NOTE | 2018-05-29 11:31 | IPN ---
DATE OF SERVICE: 05/29/2018 SUBJECTIVE: Patient was seen and examined at the bedside today morning during hemodialysis procedure. Patient reports that she had some cramps in the upper extremities last night. She has been getting daily hemodialysis and fluid removal because of bilateral pleural effusions and pericardial effusion. She was again getting hemodialysis today. She is tolerating the hemodialysis procedure, however, her blood pressures are soft and her hydralazine dose was held because of her low blood pressures. She got another echocardiogram done yesterday, official report is pending. OBJECTIVE: VITAL SIGNS: Temperature is 97.8 degrees Fahrenheit, blood pressure is 107/53, pulse is 74, respiratory rate of 17, saturating 94% on 2 liters via nasal cannula. INTAKE/OUTPUT: There is no urine output recorded. Ultrafiltration with hemodialysis was 2.5 liters yesterday. Weight on the bed scale is 85.9 kg. PHYSICAL EXAMINATION: GENERAL: Patient is awake, alert, oriented times three, morbidly obese, laying in bed getting hemodialysis done. HEAD AND NECK EXAM: Extraocular muscles intact. Pupils equally round and reactive to light. Mucous membranes are moist. Neck is supple. There is no jugular venous distention (JVD). She has a left sided internal jugular (IJ) tunneled hemodialysis catheter which is being used for dialysis. CARDIOVASCULAR: S1, S2. Systolic murmur was appreciated. I could not appreciate any pericardial rub today. No edema of the bilateral lower extremities. RESPIRATORY: Mildly decreased breath sounds at the bases, otherwise no active rales or rhonchi. ABDOMEN: Is soft, obese, positive bowel sounds, nontender. MUSCULOSKELETAL: No clubbing or cyanosis. Pulses are 2+. CENTRAL NERVOUS SYSTEM (APPLICATION OPERATIONS ENGINEER): No focal deficit. Power is 5/5 in all extremities. LAB REVIEW: CBC showed a WBC 11.9, hemoglobin 12.2, platelets are 221. BMP showed sodium 136, potassium 4.5, chloride 100, bicarbonate 25, BUN 25, creatinine is 3.4. CURRENT INPATIENT MEDICATIONS: Patient's medications were all reviewed by me. I have decreased her hydralazine dose to 25 mg by mouth three times a day. No other change in the medications today as compared with yesterday. ASSESSMENT AND PLAN: 1. End-stage renal disease, on hemodialysis. Patient is getting daily hemodialysis because of pleural and pericardial effusions. Volume status is significantly better. Because of the soft blood pressures I have decreased the ultrafiltration goal to 1.5 liter today. 2. 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 Patient's volume status is better. She got repeat echocardiogram done yesterday, official report is pending. She will get a chest x-ray tomorrow for evaluation of pleural effusions. 3. Pericardial effusion. Patient is getting daily hemodialysis heparin free. Repeat echocardiogram done yesterday. I would follow the report and decide about further hemodialysis sessions. 4. Bilateral pleural effusions. Repeat chest x-ray yesterday showed persistent effusions, however, clinically patient does not have any edema left and her blood pressures are soft. Repeat the chest x-ray tomorrow if she still has effusion then she might need to be tapped. 5. Anemia in end-stage renal disease. Hemoglobin is 12.2 which is optimal. I am going to stop her Aranesp dose now. 6. Hypertension with hypertensive heart disease. Continue her atenolol. Her blood pressures are soft. I have decreased the hydralazine dose to 25 mg by mouth three times a day with holding parameters.
[2018-05-29] MEDS: MIRALAX *UNIT DOSE* 17GM PACKET PO SCH (13:33)
[2018-05-29] MEDS: ACETAMINOPHEN TAB 650MG DOSE (2X325MG) PO PRN (13:48)
[2018-05-29 14:00] VITALS: BP_SYST 128; BP_SYST 145; BP_SYST 148; BP_DIAS 65; BP_DIAS 68; BP_DIAS 80
--- NOTE | 2018-05-29 15:09 | REP ---
Clinical: Follow up pleural effusions. Technique: PA and lateral. Comparison: 05/28/2018. Findings: The bilateral pleural effusions and pleuroparenchymal changes (left greater than right) are felt to be relatively similar to prior examination. The current examination raise the possibility of a small left apical pneumothorax. Mediastinum and cardiac silhouette are incompletely evaluated but grossly stable. Dialysis catheter extends into the SVC. The skeletal structures are stable. Impression: 1. Relatively stable appearance to the bilateral pleuroparenchymal changes with possible small left apical pneumothorax not identifiable on prior examination. Electronically Signed by Carmine Johnson MD 05/29/2018 03:01 P
[2018-05-29 16:00] VITALS: BP 107/52
[2018-05-29] MEDS: **hydrALAZINE HCL** 25 MG TAB PO SCH ×2 (16:00→21:00)
[2018-05-29] MEDS: AMITRIPTYLINE 10 MG TAB PO SCH (21:50)
[2018-05-29] MEDS: ASPIRIN 81 MG ENTERIC TAB PO SCH (21:51)
[2018-05-29] MEDS: GABAPENTIN 300 MG CAP PO SCH (21:51)
[2018-05-29] MEDS: SENOKOT S TAB PO SCH (21:51)
[2018-05-29 22:00] VITALS: BP 125/74
[2018-05-30 00:07] LABS: ANA (HEP2) Positive (.)
[2018-05-30] MEDS: LEVOTHYROXINE 150MCG TABLET (0.15MG) PO SCH (05:41)
[2018-05-30] MEDS: LEVOTHYROXINE 25MCG TABLET (0.025MG) PO SCH (05:41)
[2018-05-30 06:00] VITALS: BP_SYST 104; BP_SYST 117; BP_SYST 93; BP_DIAS 59; BP_DIAS 61; BP_DIAS 72
[2018-05-30 06:04] LABS: BASO # 0.1 10^3/uL (0.0-0.2); BASO % 0.5 % (0.0-1.0); EOS # 0.3 10^3/uL (0.0-0.50); EOS % 2.4 % (0.0-3.0); HEMATOCRIT 39.3 % (36.0-47.0); HEMOGLOBIN 12.5 g/dl (12.0-15.5); LYMPH # 0.9 10^3/uL (1.5-4.5); LYMPH % 8.1 % (24.0-44.0); MEAN CORPUSCULAR HEMOGLOBIN 30.4 pg (27.0-33.0); MEAN CORPUSCULAR HGB CONC 31.8 g/dl (32.0-36.5); MEAN CORPUSCULAR VOLUME 95.6 fl (80.0-96.0); MONO # 1.3 10^3/uL (0.0-0.8); MONO % 11.8 % (0.0-5.0); NEUTROPHILS # 8.6 10^3/uL (1.8-7.7); PLATELET COUNT, AUTOMATED 222 10^3/uL (150-450); RED BLOOD COUNT 4.11 10^6/uL (4.00-5.40); WHITE BLOOD COUNT 11.3 10^3/uL (4.0-10.0)
[2018-05-30 06:18] LABS: CALCIUM LEVEL 8.7 MG/DL (8.8-10.2); CREATININE FOR GFR 3.58 MG/DL (0.55-1.30); GLOMERULAR FILTRATION RATE 13.2 (>39); POTASSIUM SERUM 4.1 MEQ/L (3.5-5.1)
[2018-05-30] MEDS: **hydrALAZINE HCL** 25 MG TAB PO SCH ×3 (09:00→20:25)
[2018-05-30] MEDS: NYSTATIN 100,000 UNITS/GM TOPICAL PWD 15 GM TOP SCH ×2 (09:00→20:22)
--- NOTE | 2018-05-30 09:50 | REP ---
Clinical: Follow up pleural and pericardial effusions. Comparison: 05/22/2018. Technique: Axial contrast enhanced images from the lung bases to the pubic symphysis with coronal and sagittal re-formations. Findings: Moderate bilateral pleural effusions with partial loculation to the left pleural fluid is appreciated along with bilateral lower lobe and lingular atelectasis which appears considerably improved when compared to prior examination. A small residual pericardial effusion is also identified which measures up to approximately 8 mm maximal width and is also improved in comparison to prior examination. No new process is identified. No pneumothorax. Atherosclerotic changes to the thoracic aorta and coronary arteries along with mild cardiomegaly remains unchanged. A double-lumen dialysis catheter is identified with tip in the SVC. Surrounding musculoskeletal structures are intact. Limited upper abdomen again demonstrates stable hepatic hypodensities. Impression: 1. Moderate bilateral pleural effusions along with lingular and bibasilar atelectasis and small residual pericardial effusion are again identified but considerably improved when compared to prior examination. 2. No new acute process identified. Electronically Signed by Carmine Johnson MD 05/30/2018 09:42 A
[2018-05-30] MEDS: MIRALAX *UNIT DOSE* 17GM PACKET PO SCH (10:09)
[2018-05-30] MEDS: ATENOLOL 25 MG TAB PO SCH (10:11)
[2018-05-30] MEDS: SENOKOT S TAB PO SCH ×2 (10:11→20:22)
[2018-05-30] MEDS: OMEPRAZOLE 20 MG CAP PO SCH (10:12)
[2018-05-30] MEDS: ACETAMINOPHEN TAB 650MG DOSE (2X325MG) PO PRN (10:12)
--- NOTE | 2018-05-30 12:20 | CR ---
DATE OF CONSULTATION: 05/30/2018 Patient is seen at the request of Dr. Brady for bilateral pleural effusions and a pericardial effusion. Patient is a 77-year-old white female who was admitted on 05/21/2018 with increasing shortness of breath and fatigue. Patient is not a good historian, although, she does tell me that when she walks around her house, in fact, just from her bed to her bathroom, she was getting short of breath. She denies orthopnea, but says she does wake up at night gasping for air. It is unclear how often this happens. Today, she is lying flat with a 30 degree bed elevation. She has not had much of a cough and no sputum production. She does state that she has more coughing when she gets up and around. She does not complain of chest pain or chest discomfort. She states that she has lost weight, although, she does not know how much. She has lost her appetite. She has chronic renal failure for which she is on dialysis. PAST MEDICAL HISTORY: 1. End-stage renal disease on hemodialysis. 2. Hypertension. 3. Hyperlipidemia. 4. Congestive heart failure and mitral regurgitation. 5. Polycystic kidney disease, giving rise to her renal failure. 6. Gastroesophageal reflux disease. 7. Hypothyroidism. 8. Secondary hyperparathyroidism. 9. History of kidney stones. PAST SURGICAL HISTORY: None. HOME MEDICATIONS: - amitriptyline 50 mg nightly - amlodipine 10 mg daily - aspirin 81 mg daily - atenolol 100 mg daily - Wellbutrin XL 150 mg daily - clonidine 0.1 mg daily - Colace 100 mg daily - famotidine 20 mg daily - Neurontin 300 mg nightly - hydralazine 50 mg three times a day - omeprazole 40 mg daily - MiraLAX one dose daily - Synthroid 175 mcg daily ALLERGIES: CONTRAST DYE. FAMILY HISTORY: She does have a significant history of her family having polycystic kidney disease and end-stage renal disease. HABITS: Does not smoke. Does not drink. There is no illicit drug use. REVIEW OF SYSTEMS: CONSTITUTIONAL: See history of present illness (HPI), without fever, chills, but does have sweats occasionally. This does not seem to be associated with renal dialysis. She does have a weight loss of unknown magnitude. EYES: Without diplopia without amaurosis fugax without prior jaundice. RESPIRATORY: See HPI. CARDIAC: See HPI. No overt history of myocardial infarction. Does have systolic dysfunction. See discussion below with her echocardiogram. GASTROINTESTINAL (GI): With constipation, having not had a bowel movement for three weeks prior to admission. GENITOURINARY (): Without hematuria or dysuria, but with end-stage renal disease. NEUROLOGIC: Without paresthesias, paralyses, or seizures, but does have peripheral neuropathy. HEMATOLOGIC: Anemia of chronic disease. ENDOCRINE: Hypothyroidism. PHYSICAL EXAMINATION: Vital signs this morning show a temperature of 97.6 with a heart rate of 79 with a regular rate and rhythm, blood pressure of 104/61, who is 97% saturated on 2 liters nasal cannula. Respiratory rate is 18 without the use of accessory muscles. EYES: Pupils equal and reactive to light. Extraocular motion intact. Sclerae nonicteric. HEAD: Is normocephalic. NOSE: Is without deformity. MOUTH: Shows her mucous membranes to be pink and moist. Lips and commissures without lesions. There is no thrush. NECK: Is supple. There is no jugular venous distention. No subcutaneous emphysema. Trachea is midline. There are no carotid bruits, and she has 2+ carotid upstrokes. LUNGS: Show inspiratory crackles on the left side with a percussion note that is dull at the very base. On the right side, she has decreased breath sounds at the base with a dull percussion note at the base. I hear no wheezes, rhonchi, or rales on the right. CARDIAC: Exam shows a faint systolic murmur, although her heart sounds are distant. Murmur is heard best at the left lower sternal border. I cannot feel her point of maximum impulse (PMI). S1 and S2 are normal. ABDOMEN: Is soft, nontender. Bowel sounds are positive. There is no hepatomegaly. No costovertebral angle (CVA) tenderness. EXTREMITIES: Show no 1+ pretibial edema. No calf tenderness. No differential swelling of the upper extremities. SKIN: Is warm, dry, perfused without cyanosis or mottling. NEUROLOGIC: Shows II-XII intact along with gross motor and gross sensation intact. She moves well in bed. Gait is not tested. PSYCHIATRIC: Shows her to be awake, fairly alert but slow in answering questions. INVESTIGATIONS: Her white count is 11.3 with hemoglobin and hematocrit of 12.5 and 39.3, respectively. Platelet count is 222, and differential shows 76% neutrophils, 8% lymphocytes, 11% monocytes. There are no immature forms. No toxic granulosis. Her chemistries show normal electrolytes with a BUN and creatinine of 32 and 3.58 with a glucose of 106 and a calcium of 8.7. Blood gasses on admission on 05/21/2018 showed a pH of 7.37, pCO2 of 40, pO2 of 75, with a base excess of 1.3. Her pleural fluid thoracentesis on 05/26/2018 showed an LDH of 144 with a corresponding serum LDH of 183 with a total protein of 3.2 and a corresponding total protein of 6.8. There are 514 white cells, 72% of which were lymphocytes and 28% are PMNs. This, therefore, looks like a mildly exudative pleural effusion predominantly lymphocytic. It looks more chronic in nature. Her chest CT done today and compared to her chest CT done on 05/22/2018 shows a pericardial effusion, which is much smaller than it was on 05/22/2018. On 05/22/2018, it measured 1.4 cm and today at the same level, it measures 2 mm. The left pleural effusion is also much better today than it was on 05/22/2018, although it has been drained. The right pleural effusion also looks slightly better with a lung that is more aerated in the lower lobes than it was on 05/22/2018. She was densely consolidated on 05/22/2018 in the right lower lobe. Left lower lobe is also more expanded after the drainage procedure. There is no paratracheal mediastinal lymphadenopathy. There is some shotty para-aortic lymphadenopathy. Both studies are done without contrast. Her chest x-ray done today shows an improvement in the left pleural effusion, which had been drained. The right pleural effusion looks essentially unchanged from yesterday's chest x-ray. Her echocardiogram done on 05/22/2018, showed a moderate to large circumferential pericardial effusion, corresponding to that seen on the CT scan of the same day but without signs of cardiac compression. She also had a left ventricular ejection fraction of 40-45% along with diastolic dysfunction. There was mild aortic stenosis and mitral insufficiency along with tricuspid insufficiency. She had a high central venous pressure, consistent with increased pulmonary hypertension. IMPRESSION: 1. Pericardial effusion, improved since admission. 2. Pleural effusions, drained on the left side and maybe slightly improving on the right side with better aeration. 3. End-stage renal disease. 4. Polycystic kidney disease. 5. Hypertension. 6. Hypothyroidism. 7. Gastroesophageal reflux disease. 8. Dyslipidemia. 9. Anemia of chronic disease. 10. Secondary hyperparathyroidism. PLAN AND DISCUSSION: At this point in time, the pericardial effusion looks to be improving with continued dialysis and removal of fluid. The left pleural effusion has been drained and is stable at this point in time. The right pleural effusion looks to be at least unchanged if not slightly better with better right lower lobe lung aeration. At this point, I am loath to place a PleurX catheter. She is still very short of breath, but that can also be accounted for by her cardiac function. I do not need to centeno in and do a pericardial window or pericardiocentesis as the effusion is getting better, and her first effusion, which was described as moderate to large on the echocardiogram, did not show any compressive signs with right ventricular collapse or septal shift. My recommendation would be to obtain another CT on Saturday and continue aggressive dialysis. PABLO
[2018-05-30 14:00] VITALS: BP 140/72
[2018-05-30 14:22] LABS: ANTI-HISTONE ANTIBODIES 1.1 Units (0.0-0.9)
--- NOTE | 2018-05-30 14:41 | IPN ---
DATE: 05/30/2018 DATE OF SERVICE: 05/29/2018 SUBJECTIVE: Patient was seen and examined at the bedside this morning. She is laying in the bed. The patient reports that she is feeling very tired and fatigued. She was dialyzed yesterday and more than 2 liters of fluid was removed. The patient's official repeat echocardiogram report is pending. She got a CT of the chest done this morning, which is showing bilateral pleural effusions, but improvement of the pericardial effusion. The patient has soft blood pressures and her hydralazine dose was held according to the parameters. OBJECTIVE: VITAL SIGNS: Temperature is 97.6 degrees Fahrenheit, blood pressure is 104/61, pulse is 79, respiratory rate of 18, saturating 97% on nasal cannula at 2 liters. INTAKE/OUTPUT: There is no urine output recorded. Ultrafiltration with hemodialysis was 1.2 liters yesterday. Weight on the bed scale is 85.9 kg yesterday morning. PHYSICAL EXAMINATION: GENERAL: Patient is awake, alert, oriented times three, laying in bed in no apparent distress. HEAD AND NECK EXAM: Extraocular muscles intact. Pupils equally round and reactive to light. Mucous membranes are moist. Neck is supple. There is no jugular venous distention (JVD). She has a left sided internal jugular (IJ) tunneled hemodialysis catheter. CARDIOVASCULAR: S1, S2 with a grade 2/6 systolic murmur. No pericardial rub today. No edema of the bilateral lower extremities. RESPIRATORY: Decreased breath sounds at the bases, decreased vocal resonance at the bilateral bases, right is worse than left. ABDOMEN: Is soft, obese, positive bowel sounds, nontender. MUSCULOSKELETAL: No clubbing or cyanosis. Pulses are 2+. CENTRAL NERVOUS SYSTEM (MULTIMEDIA AUTHOR): No focal deficit. Power is 5/5 in all extremities. LAB REVIEW: CBC showed a WBC 11.3, hemoglobin 12.5, platelets are 222. BMP showed sodium 136, potassium 4.1, chloride 101, bicarbonate 23, BUN 32, creatinine is 3.5, calcium 8.7. Immunology showed positive BERTHA. Microbiology: Cultures are all negative so far. IMAGING: A CT of the chest was done this morning, which showed moderate bilateral pleural effusions with lingular and bibasilar atelectasis. There was a small residual pericardial effusion, but it is considerably improved as compared with the prior examination. CURRENT INPATIENT MEDICATIONS: Patient's medications were all reviewed by me. There is no change in the medications today as compared with yesterday; however, because of systolic blood pressure the patient is not receiving hydralazine. ASSESSMENT AND PLAN: 1. End-stage renal disease, on hemodialysis. Patient got daily hemodialysis for the last four consecutive days because of her pleural and pericardial effusions. Volume status is well optimized. She will not get any hemodialysis today, I will evaluate her tomorrow morning for need of hemodialysis tomorrow. 2. 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 Patient's volume status is significantly better. The patient has very soft blood pressures now. The repeat echocardiogram result is pending. I cannot remove more fluid because of her soft blood pressures. 3. Pericardial effusion. Official echo report is pending; however, CAT scan report today shows significant improvement in the pericardial fluid. The patient got heparin free dialysis for the last four consecutive days. 4. Bilateral pleural effusions. I looked at the CAT scan. Right sided pleural effusion is worse than left. The patient is already being seen by cardiothoracic surgery. The rest of the plan for possible drainage is as per cardiothoracic surgery recommendations. 5. Hypertension with hypertensive heart disease. The patient got aggressive fluid removal. She is getting atenolol and hydralazine is being held because of holding parameters. Amlodipine was already held a few days ago because of systolic heart failure.
--- NOTE | 2018-05-30 18:00 | IPNPDOC ---
Subjective Date Seen The patient was seen on 05/30/18. Subjective Chief Complaint/HPI Patient still feels off. Sitting up eating breakfast. Yesterday had some lightheadedness. Constitutional: Denies: Chills, Fever Objective Physical Examination General Exam: Positive: Alert, Cooperative, No Acute Distress Eye Exam: Positive: PERRLA Neck Exam: Positive: Supple Chest Exam: Positive: Diminished (bilaterally) Heart Exam: Negative: Tachycardic, Murmurs, Rubs Abdomen Exam: Positive: Normal bowel sounds Extremity Exam: Negative: Clubbing Skin Exam: Negative: Rash Psych Exam: Positive: Mental status NL Assessment /Plan Problems (1) Pleural effusion Status: Acute Problem Text: 05/30 Dr. Mendes had a CT of chest performed. Will look at scan and determine if pleurex catheter is required. 05/29 Breathing the same today. Xray notes pleural effusions still present, left larger than right. Discussed with Dr. Mendes, thoracic surgery. Will see patient tomorrow. 05/27 Patient's breathing improved today. Still tired. Fluid analysis indicates an exudative effusion. Likely secondary to renal failure. Ordering labs for other causes such as lupus. 05/26 Consulted IR for thoracocentesis today. Held morning Heparin. Culture and gram stain and analyze fluid. Suspect secondary to renal failure. 05/24 Will reevaluate patient's lungs after dialysis today. Order chest radiograph. Consider pleurocentesis if does not improve. 05/23 Consider having pleurocentesis tomorrow. IR was unavailable today. Consider Pulmonology tomorrow. Bilateral pleural effusions noted on CT scan Chest. Will discuss possible pleurocentesis. Monitor vitals. (2) Pericardial effusion Status: Acute Problem Text: 05/30 Was not able to get as much fluid off during dialysis. No rub noted on exam today. 05/29 Patient still has today. Still having daily dialysis. 05/27 Patient will have daily dialysis to help remove more fluid. 05/26 Reevaluate after thoracocentesis and dialysis today. 05/24 Monitor symptoms. Had present on admission. Patient had noted on CT scan of chest. (3) ESRD (end stage renal disease) on dialysis Status: Acute Problem Text: 05/30 Continue as needed. 05/29 Patient had more dialysis today. 05/26 Continue dialysis per nephrology. 05/23 Patient had to have another port for dialysis placed. Did not have dialysis today. Will have more tomorrow. Patient missed dialysis Saturday. Had dialysis today. (4) Lightheaded Problem Text: May be caused by orthostatic hypotension. Happens when patient stands. Monitor for now. (5) Orthostatic dizziness Problem Text: Ordered daily orthostats. Has been having more fluid removed via dialysis. Became lightheaded with sitting up on the edge of the bed, although unsure if just in pain. (6) Dyslipidemia Status: Chronic Problem Text: Continue home medication. (7) HTN (hypertension) Status: Chronic Problem Text: Continue patient's medications. Monitor vitals. (8) Constipation Status: Chronic Problem Text: 05/29 Changing to scheduled medications. 05/26 continue PRN 05/24 Change medications to prn from scheuled for now. Patient had several BMs yesterday and today. Monitor BMs. Plan/VTE VTE Prophylaxis Ordered?: Yes VS, I&O, 24H, Fishbone Vital Signs/I&O Vital Signs Date Time Temp Pulse Resp B/P (MAP) Pulse Ox O2 Delivery O2 Flow Rate FiO2 05/30/18 16:17 138/62 05/30/18 14:00 98.1 62 20 95 2.0 I&O- Last 24 Hours up to 6 AM 05/30/18 06:00 Intake Total 720 ml Output Total 1550 ml Balance -830 ml Laboratory Data 24H LABS Laboratory Tests 2 05/30/18 05:41: Immature Granulocyte % (Auto) 1.2, White Blood Count 11.3H, Red Blood Count 4.11, Hemoglobin 12.5, Hematocrit 39.3, Mean Corpuscular Volume 95.6, Mean Corpuscular Hemoglobin 30.4, Mean Corpuscular Hemoglobin Concent 31.8L, Red Cell Distribution Width 12.4, Platelet Count 222, Neutrophils (%) (Auto) 76.0H, Lymphocytes (%) (Auto) 8.1L, Monocytes (%) (Auto) 11.8H, Eosinophils (%) (Auto) 2.4, Basophils (%) (Auto) 0.5, Neutrophils # (Auto) 8.6H, Lymphocytes # (Auto) 0.9L, Monocytes # (Auto) 1.3H, Eosinophils # (Auto) 0.3, Basophils # (Auto) 0.1, Nucleated Red Blood Cells % (auto) 0.0, Anion Gap 12, Glomerular Filtration Rate 13.2L, Blood Urea Nitrogen 32H, Creatinine 3.58H, Sodium Level 136, Potassium Level 4.1, Chloride Level 101, Carbon Dioxide Level 23, Calcium Level 8.7L CBC/BMP Laboratory Tests 05/30/18 05:41 Red Blood Count 4.11, Mean Corpuscular Volume 95.6, Mean Corpuscular Hemoglobin 30.4, Mean Corpuscular Hemoglobin Concent 31.8 L, Red Cell Distribution Width 12.4, Neutrophils (%) (Auto) 76.0 H, Lymphocytes (%) (Auto) 8.1 L, Monocytes (%) (Auto) 11.8 H, Eosinophils (%) (Auto) 2.4, Basophils (%) (Auto) 0.5, Neutrophils # (Auto) 8.6 H, Lymphocytes # (Auto) 0.9 L, Monocytes # (Auto) 1.3 H, E osinophils # (Auto) 0.3, Basophils # (Auto) 0.1, Calcium Level 8.7 L Microbiology Microbiology 05/21/18 Blood Culture - Final, Complete NO GROWTH AFTER 5 DAYS 05/21/18 Blood Culture - Final, Complete NO GROWTH AFTER 5 DAYS 05/26/18 Gram Stain - Final, Complete 05/26/18 Body Fluid Culture - Final, Complete 05/21/18 Urine Culture - Final, Complete GME ATTESTATION GME ATTESTATION My faculty preceptor for this patient encounter was physically present during the encounter and was fully available. All aspects of the patient interview, examination, medical decision making process, and medical care plan development were reviewed and approved by the faculty preceptor. The faculty preceptor is aware and concurs with the plan as stated in the body of this note and will attest to such by his/her cosignature. AGAPITO DOWD DO May 30, 2018 18:00
[2018-05-30] MEDS: ASPIRIN 81 MG ENTERIC TAB PO SCH (20:22)
[2018-05-30] MEDS: AMITRIPTYLINE 10 MG TAB PO SCH (20:22)
[2018-05-30] MEDS: GABAPENTIN 300 MG CAP PO SCH (20:22)
[2018-05-30 22:00] VITALS: BP 116/69
--- NOTE | 2018-05-31 00:13 | ECHO ---
DATE OF PROCEDURE: 05/28/2018 DATE OF : 1940 AGE: 77 REFERRING PROVIDER: Dr. Watters PATIENT LOCATION: Room 4210 REASON FOR THE ECHOCARDIOGRAM: Pericardial effusion. 2D COMMENTS: 1. Normal left ventricular size, wall thickness, and normal global left ventricular systolic function. The estimated global left ventricular systolic ejection fraction is 60-65%. 2. The left atrium appeared to be mildly enlarged, subjectively. The right atrium also appeared to be enlarged. Normal right ventricle. 3. The atrial septum appeared to be normal without evidence of defect or shunt. 4. Normal aortic root. 5. Trace to small pericardial effusion noted, mainly posteriorly, no evidence of cardiac tamponade. 6. Mildly calcified aortic valve with normal leaflet excursion. Mildly calcified mitral annulus with normal anterior mitral valve leaflet motion. Normal tricuspid valve. The pulmonic valve and proximal pulmonary artery branches were not well visualized. 7. The inferior vena cava was normal in size, central venous pressure is most likely normal. DOPPLER: It detects mild aortic regurgitation, trace to mild mitral regurgitation, and mild tricuspid regurgitation. IMPRESSION: 1. Normal global left ventricular systolic function. 2. Trace to small pericardial effusion, no evidence of cardiac tamponade. 3. Patient was in normal sinus rhythm with isolated PACs during the test. 4. Please refer back to the full echocardiogram report done on 05/22/2018 and at that time, more pericardial effusion was noted and the inferior vena cava was dilated. MTDD
[2018-05-31 06:00] VITALS: BP 130/65
[2018-05-31 06:30] VITALS: BP_SYST 128; BP_SYST 130; BP_DIAS 65; BP_DIAS 66
[2018-05-31] MEDS: LEVOTHYROXINE 25MCG TABLET (0.025MG) PO SCH (06:30)
[2018-05-31] MEDS: MIRALAX *UNIT DOSE* 17GM PACKET PO SCH (06:30)
[2018-05-31] MEDS: LEVOTHYROXINE 150MCG TABLET (0.15MG) PO SCH (06:30)
[2018-05-31] MEDS: NYSTATIN 100,000 UNITS/GM TOPICAL PWD 15 GM TOP SCH ×2 (06:31→22:02)
[2018-05-31] MEDS: SENOKOT S TAB PO SCH ×2 (06:31→22:01)
[2018-05-31] MEDS: OMEPRAZOLE 20 MG CAP PO SCH (06:31)
[2018-05-31] MEDS: ATENOLOL 25 MG TAB PO SCH (06:32)
[2018-05-31] MEDS: **hydrALAZINE HCL** 25 MG TAB PO SCH ×3 (06:33→21:50)
[2018-05-31 09:22] LABS: BASO # 0.1 10^3/uL (0.0-0.2); BASO % 0.7 % (0.0-1.0); EOS # 0.4 10^3/uL (0.0-0.50); HEMATOCRIT 36.3 % (36.0-47.0); HEMOGLOBIN 11.2 g/dl (12.0-15.5); LYMPH # 0.7 10^3/uL (1.5-4.5); LYMPH % 5.9 % (24.0-44.0); MEAN CORPUSCULAR HEMOGLOBIN 30.4 pg (27.0-33.0); MEAN CORPUSCULAR HGB CONC 30.9 g/dl (32.0-36.5); MEAN CORPUSCULAR VOLUME 98.4 fl (80.0-96.0); MONO # 0.9 10^3/uL (0.0-0.8); MONO % 7.9 % (0.0-5.0); NEUTROPHILS # 8.8 10^3/uL (1.8-7.7); NEUTROPHILS % 80.3 % (36.0-66.0); PLATELET COUNT, AUTOMATED 276 10^3/uL (150-450); RED BLOOD COUNT 3.69 10^6/uL (4.00-5.40)
[2018-05-31 10:35] LABS: ALBUMIN 2.2 GM/DL (3.2-5.2); CALCIUM LEVEL 8.2 MG/DL (8.8-10.2); CREATININE FOR GFR 5.39 MG/DL (0.55-1.30); GLOMERULAR FILTRATION RATE 8.2 (>39); PHOSPHORUS LEVEL 5.2 MG/DL (2.5-4.9)
[2018-05-31] MEDS ORDERED: HEPARIN 1,000 UNITS/ML 10ML VIAL (FOR RADIOLOGY& DIALYSIS ONLY) XX ONE (11:15)
[2018-05-31 14:00] VITALS: BP 121/73
[2018-05-31] MEDS: ACETAMINOPHEN TAB 650MG DOSE (2X325MG) PO PRN (15:19)
--- NOTE | 2018-05-31 17:33 | IPNPDOC ---
Subjective Date Seen The patient was seen on 05/31/18. Subjective Chief Complaint/HPI Patient felt tired after dialysis. Has some back pain, likely from sitting in bed. Constitutional: Denies: Chills, Fever Objective Physical Examination General Exam: Positive: Alert, Cooperative, No Acute Distress Eye Exam: Positive: PERRLA Neck Exam: Positive: Supple Chest Exam: Positive: Diminished (bilaterally) Heart Exam: Negative: Tachycardic, Murmurs, Rubs Abdomen Exam: Positive: Normal bowel sounds Extremity Exam: Negative: Clubbing Skin Exam: Negative: Rash Psych Exam: Positive: Mental status NL Assessment /Plan Problems (1) Pleural effusion Status: Acute Problem Text: 05/31 Continue dialysis to remove more fluid. Dr. Mendes decided not to place a catheter at this time. May if does not improve. 05/30 Dr. Mendes had a CT of chest performed. Will look at scan and determine if pleurex catheter is required. 05/29 Breathing the same today. Xray notes pleural effusions still present, left larger than right. Discussed with Dr. Mendes, thoracic surgery. Will see patient tomorrow. 05/27 Patient's breathing improved today. Still tired. Fluid analysis indicates an exudative effusion. Likely secondary to renal failure. Ordering labs for other causes such as lupus. 05/26 Consulted IR for thoracocentesis today. Held morning Heparin. Culture and gram stain and analyze fluid. Suspect secondary to renal failure. 05/24 Will reevaluate patient's lungs after dialysis today. Order chest radio graph. Consider pleurocentesis if does not improve. 05/23 Consider having pleurocentesis tomorrow. IR was unavailable today. Consider Pulmonology tomorrow. Bilateral pleural effusions noted on CT scan Chest. Will discuss possible pleurocentesis. Monitor vitals. (2) Pericardial effusion Status: Acute Problem Text: 05/30 Was not able to get as much fluid off during dialysis. No rub noted on exam today. 05/29 Patient still has today. Still having daily dialysis. 05/27 Patient will have daily dialysis to help remove more fluid. 05/26 Reevaluate after thoracocentesis and dialysis today. 05/24 Monitor symptoms. Had present on admission. Patient had noted on CT scan of chest. (3) ESRD (end stage renal disease) on dialysis Status: Acute Problem Text: 05/30 Continue as needed. 05/29 Patient had more dialysis today. 05/26 Continue dialysis per nephrology. 05/23 Patient had to have another port for dialysis placed. Did not have dialysis today. Will have more tomorrow. Patient missed dialysis Saturday. Had dialysis today. (4) Lightheaded Problem Text: May be caused by orthostatic hypotension. Happens when patient stands. Monitor for now. (5) Orthostatic dizziness Problem Text: Ordered daily orthostats. Has been having more fluid removed via dialysis. Became lightheaded with sitting up on the edge of the bed, although unsure if just in pain. (6) Dyslipidemia Status: Chronic Problem Text: Continue home medication. (7) HTN (hypertension) Status: Chronic Problem Text: Continue patient's medications. Monitor vitals. (8) Constipation Status: Chronic Problem Text: 05/29 Changing to scheduled medications. 05/26 continue PRN 05/24 Change medications to prn from scheuled for now. Patient had several BMs yesterday and today. Monitor BMs. Plan/VTE VTE Prophylaxis Ordered?: Yes VS, I&O, 24H, [facility] Vital Signs/I&O Vital Signs Date Time Temp Pulse Resp B/P (MAP) Pulse Ox O2 Delivery O2 Flow Rate FiO2 05/31/18 16:43 96 2.0 05/31/18 16:00 102/50 05/31/18 14:00 97.3 63 20 I&O- Last 24 Hours up to 6 AM 05/31/18 06:00 Intake Total 898 ml Output Total 425 ml Balance 473 ml Laboratory Data 24H LABS Laboratory Tests 2 05/31/18 09:02: Immature Granulocyte % (Auto) 1.2, White Blood Count 11.0H, Red Blood Count 3.69L, Hemoglobin 11.2L, Hematocrit 36.3, Mean Corpuscular Volume 98.4H, Mean Corpuscular Hemoglobin 30.4, Mean Corpuscular Hemoglobin Concent 30.9L, Red Cell Distribution Width 12.6, Platelet Count 276, Neutrophils (%) (Auto) 80.3H, Lymphocytes (%) (Auto) 5.9L, Monocytes (%) (Auto) 7.9H, Eosinophils (%) (Auto) 4.0H, Basophils (%) (Auto) 0.7, Neutrophils # (Auto) 8.8H, Lymphocytes # (Auto) 0.7L, Monocytes # (Auto) 0.9H, Eosinophils # (Auto) 0.4, Basophils # (Auto) 0.1, Nucleated Red Blood Cells % (auto) 0.0, Blood Urea Nitrogen 52#H, Creatinine 5.39#H, Sodium Level 136, Potassium Level 4.0, Chloride Level 100, Carbon Dioxide Level 24, Anion Gap 12, Glomerular Filtration Rate 8.2L, Calcium Level 8.2L, Phosphorus Level 5.2H, Albumin 2.2L CBC/BMP Laboratory Tests 05/31/18 09:02 Red Blood Count 3.69 L, Mean Corpuscular Volume 98.4 H, Mean Corpuscular Hemoglobin 30.4, Mean Corpuscular Hemoglobin Concent 30.9 L, Red Cell Distribution Width 12.6, Neutrophils (%) (Auto) 80.3 H, Lymphocytes (%) (Auto) 5.9 L, Monocytes (%) (Auto) 7.9 H, Eosinophils (%) (Auto) 4.0 H, Basophils (%) (Auto) 0.7, Neutrophils # (Auto) 8.8 H, Lymphocytes # (Auto) 0.7 L, Monocytes # (Auto) 0.9 H, Eosinophils # (Auto) 0.4, Basophils # (Auto) 0.1, Anion Gap 12 Microbiology Microbiology 05/21/18 Blood Culture - Final, Complete NO GROWTH AFTER 5 DAYS 05/21/18 Blood Culture - Final, Complete NO GROWTH AFTER 5 DAYS 05/26/18 Gram Stain - Final, Complete 05/26/18 Body Fluid Culture - Final, Complete 05/21/18 Urine Culture - Final, Complete GME ATTESTATION GME ATTESTATION My faculty preceptor for this patient encounter was physically present during the encounter and was fully available. All aspects of the patient interview, examination, medical decision making process, and medical care plan development were reviewed and approved by the faculty preceptor. The faculty preceptor is aware and concurs with the plan as stated in the body of this note and will attest to such by his/her cosignature. AGAPITO DOWD DO May 31, 2018 17:33
[2018-05-31 22:00] VITALS: BP 100/71
[2018-05-31] MEDS: ASPIRIN 81 MG ENTERIC TAB PO SCH (22:01)
[2018-05-31] MEDS: AMITRIPTYLINE 10 MG TAB PO SCH (22:01)
[2018-05-31] MEDS: GABAPENTIN 300 MG CAP PO SCH (22:01)
[2018-05-31 23:30] VITALS: BP 140/61
[2018-06-01 06:00] VITALS: BP_SYST 111; BP_SYST 123; BP_SYST 133; BP_DIAS 58; BP_DIAS 63; BP_DIAS 83
[2018-06-01] MEDS: LEVOTHYROXINE 25MCG TABLET (0.025MG) PO SCH (06:00)
[2018-06-01] MEDS: LEVOTHYROXINE 150MCG TABLET (0.15MG) PO SCH (06:00)
[2018-06-01 06:36] LABS: CALCIUM LEVEL 8.6 MG/DL (8.8-10.2); CREATININE FOR GFR 4.01 MG/DL (0.55-1.30); GLOMERULAR FILTRATION RATE 11.6 (>39); PHOSPHORUS LEVEL 4.2 MG/DL (2.5-4.9); POTASSIUM SERUM 4.2 MEQ/L (3.5-5.1)
--- NOTE | 2018-06-01 07:31 | IPN ---
DATE OF SERVICE: 05/31/2018 SUBJECTIVE: Patient was seen and examined at the bedside today morning getting hemodialysis procedure. She is tolerating the hemodialysis procedure well. The latest echocardiogram showed improvement in the pericardial effusion. CT of chest still showed persistent bilateral pleural effusions. The patient was seen by CT surgery as well. Aggressive dialysis was recommended. No intervention has been done so far. OBJECTIVE: VITAL SIGNS: Temperature is 98.3 degrees Fahrenheit, blood pressure 130/65, pulse is 72, respiratory rate of 18, saturating 95% on 2 liters via nasal cannula. INTAKE/OUTPUT: Urine output recorded as 425 mL yesterday. Weight on the bed scale is 86.1 kg. PHYSICAL EXAMINATION: GENERAL: Patient is awake, alert, oriented times three, laying in bed getting hemodialysis done. HEAD AND NECK EXAM: Extraocular muscles intact. Pupils equally round and reactive to light. Mucous membranes are moist. Neck is supple. There is no jugular venous distention (JVD). She has a left sided internal jugular (IJ) tunneled hemodialysis catheter which is being used for dialysis. CARDIOVASCULAR: S1 and S2. Grade 2/6 systolic murmur. No rub was appreciated. No edema of the bilateral lower extremities. RESPIRATORY: Decreased breath sounds bilaterally at the bases, but decreased vocal resonance, right is worse than left. ABDOMEN: Is soft, obese, positive bowel sounds, nontender. MUSCULOSKELETAL: No clubbing or cyanosis. Pulses are 2+. CENTRAL NERVOUS SYSTEM (SOLUTION DESIGNER): No focal deficit. Power is 5/5 in all extremities. LAB REVIEW: CBC showed a WBC 11, hemoglobin 11.2, platelets are 276. BMP showed sodium 136, potassium 4, chloride 100, bicarbonate 24, BUN 52, creatinine 5.3, phosphorus 5.2, albumin 2.1. IMAGING: A repeat CT of the chest was done yesterday which showed moderate bilateral pleural effusions. Improvement of the pericardial effusion. CURRENT INPATIENT MEDICATIONS: Patient's medications were all reviewed by me. There is no change in the medications today as compared with yesterday. The patient is receiving hydralazine only once a day because of the holding parameters. ASSESSMENT AND PLAN: 1. End-stage renal disease on hemodialysis. Patient got daily hemodialysis for five consecutive days because of pleural and pericardial effusions. She is being dialyzed again. I will try to remove about 2.5 liters of fluid during hemodialysis. She is getting heparin free dialysis. 2. 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 Volume status is significantly better. New dialysis dry weight will be set at around 85 kg. A repeat echocardiogram done on 05/28/2018 showed resolution of the pericardial effusion. 3. Pericardial effusion. The patient is getting back to back heparin free dialysis. Volume status is significantly better. 4. Bilateral pleural effusions. The patient has persistent pleural effusions on the repeat CAT scan. She was seen by CT surgery. No drainage was recommended at this point. Continue the dialysis and fluid removal. 5. Hypertension with hypertensive heart disease. Continue atenolol and hydralazine with holding parameters. Avoid calcium channel blockers because of low ejection fraction. 6. Anemia and end stage renal disease. Aranesp is on hold because hemoglobin is more than 11.
[2018-06-01] MEDS: **hydrALAZINE HCL** 25 MG TAB PO SCH ×3 (08:38→21:09)
[2018-06-01] MEDS: ATENOLOL 25 MG TAB PO SCH (08:38)
[2018-06-01] MEDS: OMEPRAZOLE 20 MG CAP PO SCH (08:38)
[2018-06-01] MEDS: NYSTATIN 100,000 UNITS/GM TOPICAL PWD 15 GM TOP SCH ×2 (08:38→21:09)
[2018-06-01] MEDS: SENOKOT S TAB PO SCH ×2 (08:38→21:08)
[2018-06-01] MEDS: MIRALAX *UNIT DOSE* 17GM PACKET PO SCH (08:38)
[2018-06-01] MEDS: ACETAMINOPHEN TAB 650MG DOSE (2X325MG) PO PRN (08:53)
--- NOTE | 2018-06-01 12:50 | IPNPDOC ---
Subjective Date Seen The patient was seen on 06/01/18. Subjective Chief Complaint/HPI stable dyspnea Constitutional: Denies: Chills Eyes: Denies: Pain ENT: Denies: Head Aches Pulmonary: Denies: Dyspnea, Cough Cardiovascular: Denies: Chest Pain Gastrointestinal: Denies: Nausea, Vomiting Objective Physical Examination General Exam: Positive: Alert, Cooperative, No Acute Distress Eye Exam: Positive: PERRLA Neck Exam: Positive: Supple Chest Exam: Positive: Diminished (bilaterally) Heart Exam: Negative: Tachycardic, Murmurs, Rubs Abdomen Exam: Positive: Normal bowel sounds Extremity Exam: Negative: Clubbing Skin Exam: Negative: Rash Psych Exam: Positive: Mental status NL Assessment /Plan Problems (1) Pleural effusion Status: Acute Problem Text: 05/30 Dr. Mendes defers catheter to drain-prefers to remove c continued dialysis 05/30/18 CT chest: Impression: 1. Moderate bilateral pleural effusions along with lingular and bibasilar atelectasis and small residual pericardial effusion are again identified but considerably improved when compared to prior examination. 2. No new acute process identified. (2) Pericardial effusion Status: Acute Problem Text: no ho tamponade 05/28/18 TTE down to [id number] (3) ESRD (end stage renal disease) on dialysis Status: Acute Problem Text: continues c daily HD (4) Dyslipidemia Status: Chronic Problem Text: Continue home medication. (5) HTN (hypertension) Status: Chronic Problem Text: Continue patient's medications. Monitor vitals. (6) Constipation Status: Chronic Problem Text: stable BMs on current regimen (7) Physical deconditioning Status: Chronic Problem Text: 05/29 not safe per PT-plan home c services Plan/VTE VTE Prophylaxis Ordered?: Yes VS, I&O, 24H, Fishbone Vital Signs/I&O Vital Signs Date Time Temp Pulse Resp B/P (MAP) Pulse Ox O2 Delivery O2 Flow Rate FiO2 06/01/18 08:38 76 118/64 06/01/18 06:00 98.6 20 96 05/31/18 22:02 1.0 I&O- Last 24 Hours up to 6 AM 06/01/18 06:00 Intake Total 750 ml Output Total 2500 ml Balance -1750 ml Laboratory Data 24H LABS Laboratory Tests 2 06/01/18 05:51: Blood Urea Nitrogen 41H, Creatinine 4.01H, Sodium Level 135L, Potassium Level 4.2, Chloride Level 100, Carbon Dioxide Level 24, Anion Gap 11, Glomerular Filtration Rate 11.6L, Calcium Level 8.6L, Phosphorus Level 4.2, Albumin 2.0L CBC/BMP Laboratory Tests 06/01/18 05:51 Anion Gap 11 Microbiology Microbiology 05/26/18 Gram Stain - Final, Complete 05/26/18 Body Fluid Culture - Final, Complete Casey Johnson M.D. Jun 01, 2018 12:50
[2018-06-01 14:00] VITALS: BP 129/60
[2018-06-01] MEDS: GABAPENTIN 300 MG CAP PO SCH (21:08)
[2018-06-01] MEDS: AMITRIPTYLINE 10 MG TAB PO SCH (21:08)
[2018-06-01] MEDS: ASPIRIN 81 MG ENTERIC TAB PO SCH (21:08)
[2018-06-01 22:00] VITALS: BP 138/61
[2018-06-02 06:00] VITALS: BP 143/93
[2018-06-02] MEDS: OMEPRAZOLE 20 MG CAP PO SCH (06:30)
[2018-06-02] MEDS: LEVOTHYROXINE 150MCG TABLET (0.15MG) PO SCH (06:30)
[2018-06-02] MEDS: LEVOTHYROXINE 25MCG TABLET (0.025MG) PO SCH (06:30)
[2018-06-02] MEDS: **hydrALAZINE HCL** 25 MG TAB PO SCH ×3 (06:31→21:18)
[2018-06-02] MEDS: ATENOLOL 25 MG TAB PO SCH (06:32)
[2018-06-02] MEDS: MIRALAX *UNIT DOSE* 17GM PACKET PO SCH ×2 (06:33→21:18)
[2018-06-02] MEDS: SENOKOT S TAB PO SCH ×2 (06:33→21:18)
[2018-06-02] MEDS: NYSTATIN 100,000 UNITS/GM TOPICAL PWD 15 GM TOP SCH ×2 (06:34→21:19)
[2018-06-02 06:47] VITALS: BP_SYST 122; BP_SYST 125; BP_DIAS 62; BP_DIAS 64
[2018-06-02 08:10] LABS: BASO % 0.4 % (0.0-1.0); EOS # 0.3 10^3/uL (0.0-0.50); EOS % 3.1 % (0.0-3.0); HEMOGLOBIN 11.1 g/dl (12.0-15.5); LYMPH # 0.9 10^3/uL (1.5-4.5); LYMPH % 8.5 % (24.0-44.0); MEAN CORPUSCULAR HEMOGLOBIN 30.2 pg (27.0-33.0); MEAN CORPUSCULAR HGB CONC 31.7 g/dl (32.0-36.5); MEAN CORPUSCULAR VOLUME 95.4 fl (80.0-96.0); MONO # 1.2 10^3/uL (0.0-0.8); MONO % 11.7 % (0.0-5.0); NEUTROPHILS # 7.5 10^3/uL (1.8-7.7); NEUTROPHILS % 73.9 % (36.0-66.0); PLATELET COUNT, AUTOMATED 306 10^3/uL (150-450); RED BLOOD COUNT 3.67 10^6/uL (4.00-5.40); WHITE BLOOD COUNT 10.2 10^3/uL (4.0-10.0)
[2018-06-02 08:24] LABS: ALBUMIN 2.1 GM/DL (3.2-5.2); CALCIUM LEVEL 8.5 MG/DL (8.8-10.2); CREATININE FOR GFR 5.57 MG/DL (0.55-1.30); GLOMERULAR FILTRATION RATE 7.9 (>39); POTASSIUM SERUM 4.4 MEQ/L (3.5-5.1)
--- NOTE | 2018-06-02 11:54 | IPNPDOC ---
Subjective Date Seen The patient was seen on 06/02/18. Subjective Chief Complaint/HPI No acute events overnight. Patient reports the last 2 days when she has bowel movements she does not know that she has had them. Denies any numbness or saddle anesthesia. Nursing records have no indication of these events but do acknowledge she has had positive bowel movements. Patient states she usually has a bowel movement every 10-14 days. Constitutional: Denies: Chills, Fever ENT: Denies: Head Aches Pulmonary: Denies: Dyspnea Cardiovascular: Denies: Chest Pain Gastrointestinal: Denies: Nausea, Vomiting, Abdominal Pain Psych: Reports: Mood Normal (States she feels grumpy) Objective Physical Examination General Exam: Positive: Alert, Cooperative, No Acute Distress Eye Exam: Positive: PERRLA Neck Exam: Positive: Supple Chest Exam: Positive: Diminished (bilaterally) Heart Exam: Negative: Tachycardic, Murmurs, Rubs Abdomen Exam: Positive: Normal bowel sounds, Soft (Abdomen feels full of stool on palpation. ) Extremity Exam: Negative: Clubbing Skin Exam: Negative: Rash Psych Exam: Positive: Mental status NL Assessment /Plan Problems (1) Pleural effusion Status: Acute Problem Text: 06/02- Per Dr. Mendes, their is resolution of the left sided effusion. No further intervention warranted per CT surgery. 05/30 Dr. Mendes defers catheter to drain-prefers to remove c continued dialysis 05/30/18 CT chest: Impression: 1. Moderate bilateral pleural effusions along with lingular and bibasilar atelectasis and small residual pericardial effusion are again identified but considerably improved when compared to prior examination. 2. No new acute process identified. (2) Pericardial effusion Status: Acute Problem Text: 06/02- Per Dr. Mendes, their was a decrease in the size of the pericardial effusion. No further intervention warranted per CT surgery. no h/o tamponade 05/28/18 TTE down to [id number] (3) ESRD (end stage renal disease) on dialysis Status: Acute Problem Text: continues HD per nephrology recommendations. (4) Dyslipidemia Status: Chronic Problem Text: Continue home medication. (5) HTN (hypertension) Status: Chronic Problem Text: Continue patient's medications. Monitor vitals. (6) Constipation Status: Chronic Problem Text: stable BMs on current regimen. Patient notes in the last 2 days she has woken up with stool in her depends and did not feel the urge or even know the stool came out. No saddle anesthesia, loss of bladder, and patient is able to adequately move her feet. Patient claims staff had to clean her up, but staff denies this is the case. Her abdomen is still filled with stool on palpation and her inability to feel the bowel movements may be the result of overactivation of stretch receptors in the anal musculature, giving her a functional hirschsprung like constipation. We will increase her bowel regimen so she can get rid of further stool. (7) Physical deconditioning Status: Chronic Problem Text: 06/02- Not safe per PT- will need home with services. 05/29 not safe per PT-plan home c services Plan/VTE VTE Prophylaxis Ordered?: Yes VS, I&O, 24H, Fishbone Vital Signs/I&O Vital Signs Date Time Temp Pulse Resp B/P (MAP) Pulse Ox O2 Delivery O2 Flow Rate FiO2 06/02/18 06:47 71 122/62 (82) 77 125/64 (84) 06/02/18 06:00 99.1 19 95 05/31/18 22:02 1.0 I&O- Last 24 Hours up to 6 AM 06/02/18 06:00 Intake Total 1010 ml Output Total 0 ml Balance 1010 ml Laboratory Data 24H LABS Laboratory Tests 2 06/02/18 07:37: Immature Granulocyte % (Auto) 2.4, White Blood Count 10.2H, Red Blood Count 3.67L, Hemoglobin 11.1L, Hematocrit 35.0L, Mean Corpuscular Volume 95.4, Mean Corpuscular Hemoglobin 30.2, Mean Corpuscular Hemoglobin Concent 31.7L, Red Cell Distribution Width 13.0, Platelet Count 306, Neutrophils (%) (Auto) 73.9H, Lymphocytes (%) (Auto) 8.5L, Monocytes (%) (Auto) 11.7H, Eosinophils (%) (Auto) 3.1H, Basophils (%) (Auto) 0.4, Neutrophils # (Auto) 7.5, Lymphocytes # (Auto) 0.9L, Monocytes # (Auto) 1.2H, Eosinophils # (Auto) 0.3, Basophils # (Auto) 0.0, Nucleated Red Blood Cells % (auto) 0.0, Blood Urea Nitrogen 62#H, Creatinine 5.57H, Sodium Level 134L, Potassium Level 4.4, Chloride Level 96L, Carbon Dioxide Level 26, Anion Gap 12, Glomerular Filtration Rate 7.9L, Calcium Level 8.5L, Phosphorus Level 5.0H, Albumin 2.1L CBC/BMP Laboratory Tests 06/02/18 07:37 Red Blood Count 3.67 L, Mean Corpuscular Volume 95.4, Mean Corpuscular Hemogl obin 30.2, Mean Corpuscular Hemoglobin Concent 31.7 L, Red Cell Distribution Width 13.0, Neutrophils (%) (Auto) 73.9 H, Lymphocytes (%) (Auto) 8.5 L, Monocytes (%) (Auto) 11.7 H, Eosinophils (%) (Auto) 3.1 H, Basophils (%) (Auto) 0.4, Neutrophils # (Auto) 7.5, Lymphocytes # (Auto) 0.9 L, Monocytes # (Auto) 1.2 H, Eosinophils # (Auto) 0.3, Basophils # (Auto) 0.0, Anion Gap 12 Microbiology Microbiology 05/26/18 Gram Stain - Final, Complete 05/26/18 Body Fluid Culture - Final, Complete GME ATTESTATION GME ATTESTATION My faculty preceptor for this patient encounter was physically present in the facility during the encounter and was fully available. All aspects of the patient interview, examination, medical decision making process, and medical care plan development were reviewed and approved by the faculty preceptor. The faculty preceptor is aware and concurs with the plan as stated in the body of this note and will attest to such by his/her cosignature. MARICARMEN LOPEZ DO Jun 02, 2018 11:54 Maricarmen Patino MD Jun 02, 2018 16:15
[2018-06-02] MEDS ORDERED: HEPARIN 1,000 UNITS/ML 10ML VIAL (FOR RADIOLOGY& DIALYSIS ONLY) XX ONE (12:15)
[2018-06-02 17:14] VITALS: BP 131/91
--- NOTE | 2018-06-02 19:51 | IPN ---
DATE: 06/01/2018 SUBJECTIVE: The patient was seen and examined this morning at the bedside. She denies any acute overnight events. Denies any issues with her dialysis treatment, yesterday had 2500 mL of fluid removed. Her orthostatic vitals are noted this morning and are negative. VITAL SIGNS: Temperature 98.6, pulse 76, respiratory rate 17, blood pressure 118/64, saturating 95% on room air. Intake yesterday was 850, dialysis yesterday removed 2500, net negative 1650. Weight on the bedscale today is 84.8 kg. GENERAL: The patient is seen sitting up in bed, elderly female, awake, alert, cooperative and in no acute distress. Extraocular muscles are intact. Tongue is moist. Jugular veins are not elevated. There is a tunneled hemodialysis catheter in the left chest. CARDIAC: S1, S2. Normal rate. ABDOMEN: Soft and nontender. Positive bowel sounds. RESPIRATORY: There are diminished breath sounds at both lung bases. Otherwise, no rales. EXTREMITIES: Negative for edema, clubbing or cyanosis. SKIN: Normal turgor and temperature. LABORATORIES: White count 11.0, hemoglobin 11.2, platelets 276. Sodium 135, potassium 4.2. IMAGING: CT of the chest on 05/30/2018 showed moderate bilateral pleural effusions and a very small residual pericardial effusion. INPATIENT MEDICATIONS: Reviewed by myself and no change from prior. PROBLEMS: 1. End stage renal disease on hemodialysis. The patient was aggressively dialyzed over the past week with five treatments in the past week because of her bilateral pleural effusions and pericardial effusion. She is receiving heparin free dialysis. Her volume status has improved nicely. Her weights have down trended significantly. Her new estimated dry weight will be around 85 kg. Her next hemodialysis treatment will be on Saturday. Her PermaCath is presently in use. 2. 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 Volume status has improved nicely. She has been aggressively dialyzed. Her daily weights have down trended. She has a new estimated dry weight for dialysis. She has been weaned off of supplemental oxygen. She continues on oral fluid restriction of 1.5 liters per day. Next dialysis will be on Saturday. 3. Bilateral pleural effusions and pericardial effusion. Her pericardial effusion is resolving. There is only a small residual amount of fluid left. Her pleural effusions are persistent. The left pleural effusion has been drained. Cardiothoracic surgery evaluated her for drainage of the right pleural effusion. She is for a repeat CT scan on Saturday for surveillance of the effusion. 4. Hypertension with hypertensive heart disease. Blood pressures are acceptable. She continues on atenolol and hydralazine with holding parameters. No changes are being made today.
[2018-06-02] MEDS: ASPIRIN 81 MG ENTERIC TAB PO SCH (21:18)
[2018-06-02] MEDS: AMITRIPTYLINE 10 MG TAB PO SCH (21:18)
[2018-06-02] MEDS: GABAPENTIN 300 MG CAP PO SCH (21:18)
[2018-06-02 22:00] VITALS: BP 126/70
[2018-06-03 05:34] VITALS: BP_SYST 100; BP_SYST 102; BP_SYST 107; BP_DIAS 58; BP_DIAS 59; BP_DIAS 63
[2018-06-03 05:48] LABS: ALBUMIN 2.2 GM/DL (3.2-5.2); CALCIUM LEVEL 8.5 MG/DL (8.8-10.2); CREATININE FOR GFR 3.87 MG/DL (0.55-1.30); GLOMERULAR FILTRATION RATE 12.1 (>39); PHOSPHORUS LEVEL 4.6 MG/DL (2.5-4.9); POTASSIUM SERUM 4.2 MEQ/L (3.5-5.1)
[2018-06-03 06:00] VITALS: BP 107/63
[2018-06-03] MEDS: **hydrALAZINE HCL** 25 MG TAB PO SCH ×4 (06:22→21:02)
[2018-06-03] MEDS: LEVOTHYROXINE 150MCG TABLET (0.15MG) PO SCH (06:28)
[2018-06-03] MEDS: SENOKOT S TAB PO SCH ×2 (06:29→21:00)
[2018-06-03] MEDS: OMEPRAZOLE 20 MG CAP PO SCH (06:29)
[2018-06-03] MEDS: LEVOTHYROXINE 25MCG TABLET (0.025MG) PO SCH (06:29)
[2018-06-03 06:33] VITALS: BP 98/58
[2018-06-03] MEDS: MIRALAX *UNIT DOSE* 17GM PACKET PO SCH ×2 (06:34→21:00)
[2018-06-03] MEDS: NYSTATIN 100,000 UNITS/GM TOPICAL PWD 15 GM TOP SCH ×2 (06:34→21:02)
[2018-06-03] MEDS: ATENOLOL 25 MG TAB PO SCH (06:35)
--- NOTE | 2018-06-03 07:07 | IPN ---
DATE OF SERVICE: 06/02/2018 SUBJECTIVE: Patient seen and examined this morning at the bedside. Denies any acute overnight events or issues. She is due for dialysis this afternoon with goal fluid removal of 2 liters. Temperature 99.1, pulse 89, respiratory rate 19, blood pressure 143/93, saturating 95% on room air. Intake yesterday was 1010, dialysis today removed 2000 mL. Weight on the bed scale today is 86.8 kg. General: Patient is seen sitting upright in bed, elderly female, well developed in no distress. Awake, alert and oriented. Extraocular muscles are intact. Tongue is moist. Jugular veins are not elevated. There is a tunneled hemodialysis catheter present in the left chest. Cardiac: S1, S2. Normal rate and rhythm. Abdomen: Soft and nontender. There are bowel sounds. Respiratory: There is symmetric air entry bilaterally diminished at the base. Extremities: Negative for edema, clubbing or cyanosis. Skin: Normal turgor and temperature. White count 10.2. Hemoglobin 11.1, platelets 306. Sodium 134, potassium 4.4, phosphorus 5.0. INPATIENT MEDICATIONS: Reviewed by myself and no change from prior. PROBLEMS: 1. End stage renal disease on hemodialysis. Patient is receiving additional hemodialysis treatment today. In view of her resolving pericardial effusion and ongoing bilateral pleural effusions, she is receiving heparin free dialysis. Her volume status is improving nicely. Her weights have been down trending. She is compliant with oral fluid restriction. She will be dialyzed today and again tomorrow. Her PermaCath is presently in use. 2. Combined systolic and diastolic congestive heart failure. Left ventricular ejection fraction of about 40% and grade 2 diastolic dysfunction on recent echocardiogram. Patient has been receiving aggressive ultrafiltration and dialysis for correction of volume status in view of the pericardial and pleural effusions that she initially was admitted with. Her daily weights have down trended. She is asymptomatically improved, off of supplemental oxygen. Continues on oral fluid restriction. She will be dialyzed today and again tomorrow. 3. Hypertension. Blood pressures are acceptable. She continues on atenolol and hydralazine with generous holding parameters. 4. Anemia related to chronic renal failure. Hemoglobin today is 11.1 which is at target and optimal. She will receive Aranesp when indicated. Presently it is held.
[2018-06-03] MEDS ORDERED: HEPARIN 1,000 UNITS/ML 10ML VIAL (FOR RADIOLOGY& DIALYSIS ONLY) XX ONE (12:30)
[2018-06-03 14:00] VITALS: BP 143/67
[2018-06-03] MEDS: ACETAMINOPHEN TAB 650MG DOSE (2X325MG) PO PRN ×2 (14:36→21:03)
--- NOTE | 2018-06-03 14:40 | IPNPDOC ---
Subjective Date Seen The patient was seen on 06/03/18. Subjective Chief Complaint/HPI No acute events overnight. Patient is seen bedside at dialysis and states she is feeling good. She did have another episode of fecal incontinence with loose stool. She denies any headaches, dizziness, lightheadedness, chest pain, dyspnea, abdominal pain, nausea or vomiting. Constitutional: Denies: Chills, Fever, Malaise, Fatigue ENT: Denies: Head Aches Pulmonary: Denies: Dyspnea Cardiovascular: Denies: Chest Pain Gastrointestinal: Denies: Nausea, Vomiting, Abdominal Pain Psych: Reports: Mood Normal Objective Physical Examination General Exam: Positive: Alert, Cooperative, No Acute Distress Eye Exam: Positive: EOMI ENT Exam: Positive: Atraumatic, Mucous membr. moist/pink Neck Exam: Positive: Supple Chest Exam: Positive: Clear to auscultation, Diminished (bilaterally) Heart Exam: Positive: Rate Normal; Negative: Tachycardic, Murmurs, Rubs Abdomen Exam: Positive: Normal bowel sounds, Soft (Abdomen continues to feel full of stool on palpation) Extremity Exam: Negative: Clubbing Skin Exam: Negative: Rash Psych Exam: Positive: Mental status NL Assessment /Plan Problems (1) Pleural effusion Status: Acute Response to Treatment: Improving Problem Text: 06/03- Spoke with nephrology, at this point they are recommending a repeat chest CT tomorrow to evaluate for resolution of the right sided effusion. If it is large enough that a thoracentesis is needed, IR can be consulted to drain. Otherwise, patient is to resume normal dialysis T,Th, Sat. 06/02- Per Dr. Mendes, their is resolution of the left sided effusion. No further intervention warranted per CT surgery. 05/30 Dr. Mendes defers catheter to drain-prefers to remove c continued dialy sis 05/30/18 CT chest: Impression: 1. Moderate bilateral pleural effusions along with lingular and bibasilar atelectasis and small residual pericardial effusion are again identified but considerably improved when compared to prior examination. 2. No new acute process identified. (2) Pericardial effusion Status: Acute Response to Treatment: Improving Problem Text: 06/02- Per Dr. Mendes, their was a decrease in the size of the pericardial effusion. No further intervention warranted per CT surgery. no h/o tamponade 05/28/18 TTE down to [id number] (3) ESRD (end stage renal disease) on dialysis Status: Acute Problem Text: 06/03- Patient is to resume normal dialysis T,Th, Sat. She received albumin today and only had 2kg taken off as her blood pressure was low (4) Dyslipidemia Status: Chronic Problem Text: Continue home medication. (5) HTN (hypertension) Status: Chronic Problem Text: Continue patient's medications. Monitor vitals. (6) Constipation Status: Chronic Problem Text: 06/03- Patient continues to have more regular bowel movements although today she did complain of loose stool and fecal incontinence. She states that due to past intraabdominal surgeries she does not feel the urge to go and thus will only have a bowel movement every 10-14 days. Will continue her current regimen as her abdomen is still grossly full of stool. 06/02-stable BMs on current regimen. Patient notes in the last 2 days she has woken up with stool in her depends and did not feel the urge or even know the stool came out. No saddle anesthesia, loss of bladder, and patient is able to adequately move her feet. Patient claims staff had to clean her up, but staff denies this is the case. Her abdomen is still filled with stool on palpation and her inability to feel the bowel movements may be the result of overactivation of stretch receptors in the anal musculature, giving her a functional hirschsprung like constipation. We will increase her bowel regimen so she can get rid of further stool. (7) Physical deconditioning Status: Chronic Problem Text: 06/02- Not safe per PT- will need home with services. 05/29 not safe per PT-plan home c services Plan/VTE VTE Prophylaxis Ordered?: Yes VS, I&O, 24H, Fishbone Vital Signs/I&O Vital Signs Date Time Temp Pulse Resp B/P (MAP) Pulse Ox O2 Delivery O2 Flow Rate FiO2 06/03/18 06:35 72 98/58 06/03/18 06:00 97.0 18 96 05/31/18 22:02 1.0 I&O- Last 24 Hours up to 6 AM 06/03/18 06:00 Intake Total 1400 ml Output Total 2000 ml Balance -600 ml Laboratory Data 24H LABS Laboratory Tests 2 06/03/18 05:06: Blood Urea Nitrogen 34H, Creatinine 3.87H, Sodium Level 135L, Potassium Level 4.2, Chloride Level 97L, Carbon Dioxide Level 28, Anion Gap 10, Glomerular Filtration Rate 12.1L, Calcium Level 8.5L, Phosphorus Level 4.6, Albumin 2.2L CBC/BMP Laboratory Tests 06/03/18 05:06 Anion Gap 10 Microbiology Microbiology 05/26/18 Gram Stain - Final, Complete 05/26/18 Body Fluid Culture - Final, Complete GME ATTESTATION GME ATTESTATION My faculty preceptor for this patient encounter was physically present during the encounter and was fully available. All aspects of the patient interview, examination, medical decision making process, and medical care plan development were reviewed and approved by the faculty preceptor. The faculty preceptor is aware and concurs with the plan as stated in the body of this note and will attest to such by his/her cosignature. MARICARMEN LOPEZ DO Jun 03, 2018 14:40
--- NOTE | 2018-06-03 16:11 | IPN ---
DATE: 06/03/2018 Ms. Romero from a thoracic point of view is doing better. She is breathing easier. She is no longer short of breath in bed. She is having problems with diarrhea and other various aches throughout her body and extremities. Her vital signs show a T-max of 100.1 with a heart rate that ranges between 69 and 72 with a regular rate and rhythm, respiratory rate of 18 to 16 without the use of accessory muscles who is 96% saturated on room air and whose blood pressure is ranging between 107/63 to 98/58. Her intake and output over the past 24 hours has been recorded as 1300 in and 2000 out for a negativity of 700 mL. She had 2000 mL out on hemodialysis. Her weight today is 84.3 kg compared to 86.8 kg yesterday. PHYSICAL EXAMINATION: She has decreased breath sounds in the right lower hemithorax with a dull percussion note in the right lower hemithorax. This, however, is improved over when I first saw her. Left lung shows scattered rhonchi throughout which clear mostly with coughing. Percussion note is full to the diaphragm on the left side. Cardiac exam is without murmurs, clicks, gallops or rubs. I cannot feel her point of maximal impulse (PMI). S1, S2 are normal. Abdomen is soft, nontender, but distended and tympanitic. There is no hepatomegaly. No costovertebral angle (CVA) tenderness. Extremities gratifying show no pretibial edema, no calf tenderness. No differential swelling of the upper extremities. Skin is warm, dry and perfused without cyanosis or mottling including that of the nail beds and the knees. Neck is supple. There is no jugular venous distention, no subcutaneous emphysema. Trachea midline. Mouth shows her mucous membranes to be pink and moist, lips and commissures without lesions. No thrush. Eyes show her pupils to be equal and reactive. Extraocular motions intact. Sclera anicteric. Neuro shows II through XII intact. Gross motor and gross sensation intact. Gait is not tested. Her white count today is 10.2, which continues to fall with a hemoglobin and hematocrit of 11.1 and 35.0, essentially unchanged from yesterday. Platelet count is 306 and differential shows 73% neutrophils, 8% lymphocytes, 11% monocytes. There are no immature forms. No toxic granulations. Her chemistries show a marginally low sodium 135. BUN and creatinine are 34 and 3.87 with a glucose of 97 and a calcium of 8.5. Albumin is 2.2. Her chest CT done on 05/30/2018 shows continued resolution of her pericardial effusion. She still has a left pleural effusion, but it too looks to be smaller than original. The lung is opening up again. There is a small left pleural effusion that continues after drainage. I do not see any discrete masses. IMPRESSION: 1. End-stage renal disease on hemodialysis. 2. Hypertension. 3. Hyperlipidemia. 4. Pericardial effusion, improving. 5. Pleural effusion, drained on the left side and improving on the right side with better aeration. 6. Polycystic kidney disease. 7. Hypothyroidism. 8. Gastroesophageal reflux disease (GERD). 9. Dyslipidemia. 10. Anemia of chronic disease. 11. Secondary hyperparathyroidism. PLAN AND DISCUSSION: Her pericardial effusions and pleural effusions are slowly improving. She has no compressive signs on echocardiography. It is my instinct that the continued dialysis is working to reduce her effusions and she is symptomatically much better and certainly does not need a pericardial window or a right drainage procedure on the right chest. I will therefore sign off on her case unless I am needed again for reconsultation. I will be gone from the to the .
[2018-06-03] MEDS: ASPIRIN 81 MG ENTERIC TAB PO SCH (21:01)
[2018-06-03] MEDS: AMITRIPTYLINE 10 MG TAB PO SCH (21:02)
[2018-06-03] MEDS: GABAPENTIN 300 MG CAP PO SCH (21:02)
--- NOTE | 2018-06-03 21:07 | IPN ---
DATE: 06/03/2018 SUBJECTIVE: Patient seen and examined this morning in the hemodialysis unit, receiving her maintenance treatment. She denies any overnight events or complaints. VITAL SIGNS: Temperature 97.0, pulse 69, respiratory rate 18, blood pressure 107/63, saturating 96% on room air. Intake yesterday was 1300. Dialysis yesterday removed 1999. Further dialysis removal for today is another 1999. Weight on the bed scale today is 84.3 kg. General: The patient is seen in the hemodialysis unit receiving her treatment, awake, alert, oriented, comfortable, in no acute distress. Extraocular muscles are intact. Tongue is moist. Neck is supple. Jugular veins are not elevated. A tunneled left hemodialysis catheter is presently in use. Cardiac: S1, S2, regular rate and rhythm. Lungs: Clear to auscultation, and there are diminished breath sounds at the bases; otherwise clear. Abdomen: Soft and nontender. Positive bowel sounds. Extremities: The extremities are negative for edema, clubbing or cyanosis. Neurologic: She is oriented. No focal deficit. LABORATORY: White count 10.2, hemoglobin 11.1, sodium 135, potassium 4.2, bicarbonate 28. INPATIENT MEDICATIONS: Reviewed by myself and no change from prior. PROBLEMS: 1. End-stage renal disease, on hemodialysis on a Saturday, , Saturday schedule. Patient received an extra hemodialysis treatment yesterday, and she was dialyzed again today, a total of 4 liters removed in the past 2 days. Daily weights continue to downtrend, and her volume status has improved significantly over the course of this admission. Her electrolytes are acceptable. Her fistula is presently not functional, and a tunneled hemodialysis catheter is in use. 2. Combined systolic and diastolic congestive heart failure. Left ventricular fraction 40%, grade 2 diastolic dysfunction on recent echo. She has been receiving aggressive ultrafiltration and additional dialysis treatments for correction of volume status in view of pericardial and pleural effusions. These are resolving. Cardiothoracic surgery does not feel that the right-sided pleural effusion needs to be drained. We will continue with aggressive dialysis and challenging of her dry weight as hemodynamically tolerated. She continues on oral fluid restriction. 3. Hypertension. Blood pressures were a little bit soft this morning pre-dialysis, likely related to the significant fluid removal she has been having. I gave her albumin with dialysis today so that we could remove further fluid without hemodynamic instability. She continues on atenolol and hydralazine with holding parameters. 4. Anemia related to chronic renal failure. Hemoglobin is 11.1 and Aranesp is presently not indicated.
[2018-06-03 22:00] VITALS: BP 155/72
[2018-06-04 06:00] VITALS: BP 123/57
[2018-06-04 06:08] LABS: ALBUMIN 2.5 GM/DL (3.2-5.2); CALCIUM LEVEL 8.5 MG/DL (8.8-10.2); CREATININE FOR GFR 3.39 MG/DL (0.55-1.30); GLOMERULAR FILTRATION RATE 14.1 (>39); POTASSIUM SERUM 4.3 MEQ/L (3.5-5.1)
[2018-06-04] MEDS: LEVOTHYROXINE 25MCG TABLET (0.025MG) PO SCH (06:14)
[2018-06-04] MEDS: LEVOTHYROXINE 150MCG TABLET (0.15MG) PO SCH (06:14)
[2018-06-04 06:30] VITALS: BP_SYST 118; BP_SYST 120; BP_SYST 125; BP_DIAS 60; BP_DIAS 70
[2018-06-04] MEDS: MIRALAX *UNIT DOSE* 17GM PACKET PO SCH ×2 (09:00→21:45)
[2018-06-04] MEDS: OMEPRAZOLE 20 MG CAP PO SCH (09:27)
[2018-06-04] MEDS: SENOKOT S TAB PO SCH ×2 (09:27→21:45)
[2018-06-04] MEDS: NYSTATIN 100,000 UNITS/GM TOPICAL PWD 15 GM TOP SCH ×2 (09:28→21:45)
[2018-06-04] MEDS: **hydrALAZINE HCL** 25 MG TAB PO SCH ×3 (09:29→21:45)
[2018-06-04] MEDS: ATENOLOL 25 MG TAB PO SCH (09:29)
--- NOTE | 2018-06-04 10:50 | REP ---
CT CHEST WITHOUT IV CONTRAST: CT chest performed without IV contrast. Sagittal and coronal reconstruction images are performed. COMPARISON: 05/30/2018 Previously noted moderate right effusion has decreased, with mild residual fluid remaining. Small amount of left pleural fluid has mildly increased since the prior study. Adjacent parenchymal opacities posteriorly in the left lung appear essentially unchanged. There are linear fibroatelectatic changes in the inferior right lung with improvement of right lower lobe consolidative opacity. Left central venous catheter is seen with the tip in the superior vena cava. The is mild atherosclerotic calcification of the thoracic aorta with mild dilatation up to 4.3 cm in diameter of the ascending thoracic aorta. The heart is upper limits of normal in size. Very small amount of pericardial fluid appears to have improved. Normal size mediastinal lymph nodes are present without evidence of significant lymphadenopathy. There are a few cysts again seen in the liver. Polycystic kidneys are again noted. There are degenerative changes of the spine. IMPRESSION: Improved right pleural effusion with very mild residual. There is also improvement of right lower lobe consolidation with only minimal residual. Mild increase in small left effusion. Left lung parenchymal opacities are stable. Mild improvement of pericardial effusion. Electronically Signed by Juliano Figueroa MD 06/04/2018 08:34 P
[2018-06-04 14:00] VITALS: BP 112/54
--- NOTE | 2018-06-04 17:08 | IPNPDOC ---
Subjective Date Seen The patient was seen on 06/04/18. Subjective Chief Complaint/HPI still experiences WATSON. Constitutional: Denies: Chills ENT: Denies: Head Aches Pulmonary: Reports: Dyspnea (with exertion); Denies: Pleuritic Chest Pain Cardiovascular: Denies: Chest Pain Gastrointestinal: Denies: Nausea, Abdominal Pain Hematologic: Denies: Bruising Neurological: Denies: Weakness Psych: Reports: Mood Normal Objective Physical Examination General Exam: Positive: Alert, Cooperative, No Acute Distress Eye Exam: Positive: EOMI ENT Exam: Positive: Atraumatic, Mucous membr. moist/pink Neck Exam: Positive: Supple Heart Exam: Positive: Rate Normal; Negative: Tachycardic, Murmurs, Rubs Abdomen Exam: Positive: Normal bowel sounds, Soft (Abdomen continues to feel full of stool on palpation) Extremity Exam: Negative: Clubbing Skin Exam: Negative: Rash Psych Exam: Positive: Mental status NL Assessment /Plan Problems (1) Pleural effusion Status: Acute Response to Treatment: Improving Problem Text: 06/04: effusions better on right. slight increase in left with improvement in consolidation. pericardial effusion better. 06/03- Spoke with nephrology, at this point they are recommending a repeat chest CT tomorrow to evaluate for resolution of the right sided effusion. If it is large enough that a thoracentesis is needed, IR can be consulted to drain. Otherwise, patient is to resume normal dialysis T,Th, Sat. 06/02- Per Dr. Mendes, their is resolution of the left sided effusion. No further intervention warranted per CT surgery. 05/30 Dr. Mendes defers catheter to drain-prefers to remove c continued dialysis 05/30/18 CT chest: Impression: 1. Moderate bilateral pleural effusions along with lingular and bibasilar atelectasis and small residual pericardial effusion are again identified but considerably improved when compared to prior examination. 2. No new acute process identified. (2) Pericardial effusion Status: Acute Response to Treatment: Improving Problem Text: 06/04: improved per CT 06/02- Per Dr. Mendes, their was a decrease in the size of the pericardial effusion. No further intervention warranted per CT surgery. no h/o tamponade 05/28/18 TTE down to [id number] (3) ESRD (end stage renal disease) on dialysis Status: Acute Problem Text: 06/03- Patient is to resume normal dialysis T,Th, Sat. She received albumin today and only had 2kg taken off as her blood pressure was low (4) Dyslipidemia Status: Chronic Problem Text: Continue home medication. (5) HTN (hypertension) Status: Chronic Problem Text: Continue patient's medications. Monitor vitals. (6) Constipation Status: Chronic Problem Text: 06/03- Patient continues to have more regular bowel movements although today she did complain of loose stool and fecal incontinence. She states that due to past intraabdominal surgeries she does not feel the urge to go and thus will only have a bowel movement every 10-14 days. Will continue her current regimen as her abdomen is still grossly full of stool. 06/02-stable BMs on current regimen. Patient notes in the last 2 days she has woken up with stool in her depends and did not feel the urge or even know the stool came out. No saddle anesthesia, loss of bladder, and patient is able to adequately move her feet. Patient claims staff had to clean her up, but staff denies this is the case. Her abdomen is still filled with stool on palpation and her inability to feel the bowel movements may be the result of overactivation of stretch receptors in the anal musculature, giving her a functional hirschsprung like constipation. We will increase her bowel regimen so she can get rid of further stool. (7) Physical deconditioning Status: Chronic Problem Text: 06/04: worked well with PT today. may be ready for D/C in 1-2 days. 06/02- Not safe per PT- will need home with services. 05/29 not safe per PT-plan home c services Plan/VTE VTE Prophylaxis Ordered?: Yes VS, I&O, 24H, Fishbone Vital Signs/I&O Vital Signs Date Time Temp Pulse Resp B/P (MAP) Pulse Ox O2 Delivery O2 Flow Rate FiO2 06/04/18 14:00 98.8 83 20 112/54 (73) 93 05/31/18 22:02 1.0 I&O- Last 24 Hours up to 6 AM 06/04/18 06:00 Intake Total 610 ml Output Total 2000 ml Balance -1390 ml Laboratory Data 24H LABS Laboratory Tests 2 06/04/18 05:37: Blood Urea Nitrogen 38H, Creatinine 3.39H, Sodium Level 136, Potassium Level 4.3, Chloride Level 99, Carbon Dioxide Level 27, Anion Gap 10, Glomerular Filtration Rate 14.1L, Calcium Level 8.5L, Phosphorus Level 5.0H, Albumin 2.5L CBC/BMP Laboratory Tests 06/04/18 05:37 Anion Gap 10 Microbiology Microbiology 05/26/18 Gram Stain - Final, Complete 05/26/18 Body Fluid Culture - Final, Complete Ahsan Patino MD Jun 04, 2018 17:08
--- NOTE | 2018-06-04 18:51 | IPN ---
DATE: 06/04/2018 SUBJECTIVE: Patient seen and examined this morning at the bedside. She reports some cramping yesterday after she had dialysis. She otherwise denies any new complaints. Her CAT scan today showed improvement in her effusions. VITAL SIGNS: Temperature 98.8, pulse 83, respiratory rate 20, blood pressure 112/54, saturating 93% on room air. Intake yesterday was 640. Dialysis yesterday removed 2000, net negative 1360. Weight on the bed scale today is 84.3 kg. PHYSICAL EXAMINATION: GENERAL: The patient is seen lying in bed, awake, alert, oriented, comfortable, in no acute distress. Extraocular muscles are intact. Tongue is moist. Neck is supple. There is a tunneled hemodialysis catheter present in the left chest wall. Jugular veins are not elevated. Cardiac: S1, S2, regular rate and rhythm. Lungs: Clear to auscultation. There are no crackles or rales. Abdomen: Soft and obese. Extremities: There is a left upper extremity fistula with thrill and bruit. The lower extremities are negative for edema, clubbing or cyanosis. Skin shows normal turgor and temperature. Psychiatric: Appropriate mood and affect. LABORATORY: White count 10.2, hemoglobin 11.1, sodium 136, potassium 4.3, bicarbonate 27, phosphorous 5.0. Imaging: CT of the chest on 06/04/2018 showed improvement in the right pleural effusion with only mild residual and only minimal residual pericardial fluid. INPATIENT MEDICATIONS: Reviewed by myself and no change from prior. PROBLEMS: 1. End-stage renal disease, on hemodialysis on a Saturday, , Saturday schedule. Patient has received aggressive dialysis and ultrafiltration for correction of her volume status in view of pleural effusions and pericardial effusions. Her estimated dry weight will now be decreased to 84 kg and she will be challenged as tolerated with hemodialysis. She is now complaining of significant cramping post hemodialysis treatment and I am resuming her back on her usual Saturday, , and Saturday schedule. She is instructed to continue with fluid restriction to 1500 mL per day. Electrolytes are acceptable and she will need to followup with vascular surgery as an outpatient in regard to the issue with her fistula. 2. Pleural effusion and pericardial effusion. These are significantly improving on serial imaging and she has been receiving additional dialysis/ultrafiltration treatments. CT scan from 06/04/2018 was reviewed. We will now resume back her maintenance hemodialysis schedule of Saturday, and Saturday with challenging of her dry weight as tolerated by her hemodynamics. 3. Hypertension. Blood pressures are acceptable. No changes are being made to her regimen. 4. Complaints of muscle cramping. It is likely due to the aggressive dialysis prescription and fluid removal that she has had over the course of this admission, but we will check a magnesium level. 5. Combined systolic and diastolic congestive heart failure. Ejection fraction of 40% with grade 2 diastolic dysfunction. Volume status is improving. Residual pericardial and pleural effusions noted. The patient will need to be very careful regarding adherence to fluid restriction.
[2018-06-04] MEDS: AMITRIPTYLINE 10 MG TAB PO SCH (21:45)
[2018-06-04] MEDS: GABAPENTIN 300 MG CAP PO SCH (21:45)
[2018-06-04] MEDS: ASPIRIN 81 MG ENTERIC TAB PO SCH (21:46)
[2018-06-04 22:00] VITALS: BP 134/64
[2018-06-05] MEDS: LEVOTHYROXINE 150MCG TABLET (0.15MG) PO SCH (05:42)
[2018-06-05] MEDS: ATENOLOL 25 MG TAB PO SCH (05:43)
[2018-06-05] MEDS: **hydrALAZINE HCL** 25 MG TAB PO SCH ×3 (05:43→20:57)
[2018-06-05] MEDS: OMEPRAZOLE 20 MG CAP PO SCH (05:43)
[2018-06-05] MEDS: LEVOTHYROXINE 25MCG TABLET (0.025MG) PO SCH (05:44)
[2018-06-05] MEDS: NYSTATIN 100,000 UNITS/GM TOPICAL PWD 15 GM TOP SCH ×2 (05:44→20:59)
[2018-06-05] MEDS: MIRALAX *UNIT DOSE* 17GM PACKET PO SCH ×2 (05:44→20:58)
[2018-06-05] MEDS: SENOKOT S TAB PO SCH ×3 (05:44→20:59)
[2018-06-05 05:57] VITALS: BP_SYST 108; BP_SYST 117; BP_SYST 145; BP_DIAS 65; BP_DIAS 69; BP_DIAS 75
[2018-06-05 06:00] VITALS: BP 140/87
[2018-06-05 07:40] LABS: ALBUMIN 2.3 GM/DL (3.2-5.2); CALCIUM LEVEL 8.6 MG/DL (8.8-10.2); CREATININE FOR GFR 5.1 MG/DL (0.55-1.30); GLOMERULAR FILTRATION RATE 8.8 (>39); MAGNESIUM LEVEL 2.5 MG/DL (1.8-2.4); PHOSPHORUS LEVEL 6.4 MG/DL (2.5-4.9); POTASSIUM SERUM 4.6 MEQ/L (3.5-5.1)
[2018-06-05 08:30] VITALS: BP 148/84
--- NOTE | 2018-06-05 10:15 | IPNPDOC ---
Subjective Date Seen The patient was seen on 06/05/18. Subjective Chief Complaint/HPI Patient seen in dialysis today. No acute events overnight. Patient denies any headaches, dizziness, chest pain, shortness of breath, nausea, vomiting, abdominal pain, constipation, diarrhea. States she will do her best to try to participate in physical therapy this afternoon. Objective Physical Examination General Exam: Positive: Alert, Cooperative, No Acute Distress Eye Exam: Positive: EOMI ENT Exam: Positive: Atraumatic, Mucous membr. moist/pink Neck Exam: Positive: Supple Heart Exam: Positive: Rate Normal; Negative: Tachycardic, Murmurs, Rubs Abdomen Exam: Positive: Normal bowel sounds, Soft (obese); Negative: Tenderness Extremity Exam: Negative: Clubbing, Edema Skin Exam: Positive: Nl turgor and temperature; Negative: Rash Neuro Exam: Positive: Normal Speech Psych Exam: Positive: Mental status NL, Mood NL Assessment /Plan Problems (1) ESRD (end stage renal disease) on dialysis Status: Acute Problem Text: 06/05patient receiving dialysis today. She is on her normal schedule. Dr. Nicolas's plan is to pre-medicate her due to her contrast allergy and do the fistogram likely tomorrow around 1300 and if it looks good she will be okay to go home as long as she is cleared by PT and if not he will keep her on his service to do the surgical repair on Saturday or Saturday. 06/03- Patient is to resume normal dialysis T,Th, Sat. She received albumin today and only had 2kg taken off as her blood pressure was low (2) Pleural effusion Status: Acute Response to Treatment: Improving Problem Text: 06/05: Patient will continue to receive HD on assigned days and adhere to fluid restriction to keep draining effusions. 06/04: effusions better on right. slight increase in left with improvement in consolidation. pericardial effusion better. 06/03- Spoke with nephrology, at this point they are recommending a repeat chest CT tomorrow to evaluate for resolution of the right sided effusion. If it is large enough that a thoracentesis is needed, IR can be consulted to drain. Otherwise, patient is to resume normal dialysis T,Th, Sat. 06/02- Per Dr. Mendes, their is resolution of the left sided effusion. No further intervention warranted per CT surgery. 05/30 Dr. Mendes defers catheter to drain-prefers to remove c continued dialysis 05/30/18 CT chest: Impression: 1. Moderate bilateral pleural effusions along with lingular and bibasilar atelectasis and small residual pericardial effusion are again identified but considerably improved when compared to prior examination. 2. No new acute process identified. (3) Pericardial effusion Status: Acute Response to Treatment: Improving Problem Text: 06/05: Improved per CT, no intervention required 06/04: improved per CT 06/02- Per Dr. Mendes, their was a decrease in the size of the pericardial effusion. No further intervention warranted per CT surgery. no h/o tamponade 05/28/18 TTE down to [id number] (4) Dyslipidemia Status: Chronic Problem Text: Continue home medication. (5) HTN (hypertension) Status: Chronic Problem Text: Continue patient's medications. Monitor vitals. (6) Constipation Status: Chronic Problem Text: 06/03- Patient continues to have more regular bowel movements although today she did complain of loose stool and fecal incontinence. She states that due to past intraabdominal surgeries she does not feel the urge to go and thus will only have a bowel movement every 10-14 days. Will continue her current regimen as her abdomen is still grossly full of stool. 06/02-stable BMs on current regimen. Patient notes in the last 2 days she has woken up with stool in her depends and did not feel the urge or even know the stool came out. No saddle anesthesia, loss of bladder, and patient is able to adequately move her feet. Patient claims staff had to clean her up, but staff denies this is the case. Her abdomen is still filled with stool on palpation and her inability to feel the bowel movements may be the result of overactivation of stretch receptors in the anal musculature, giving her a functional hirschsprung like constipation. We will increase her bowel regimen so she can get rid of further stool. (7) Physical deconditioning Status: Chronic Problem Text: 06/05: Patient continues to improve with physical therapy. They're estimating only 2 more sessions are needed. She is having difficulty participating in physical therapy post dialysis but will attempt to try it today. 06/04: worked well with PT today. may be ready for D/C in 1-2 days. 06/02- Not safe per PT- will need home with services. 05/29 not safe per PT-plan home c services Plan/VTE VTE Prophylaxis Ordered?: Yes VS, I&O, 24H, Fishbone Vital Signs/I&O Vital Signs Date Time Temp Pulse Resp B/P (MAP) Pulse Ox O2 Delivery O2 Flow Rate FiO2 06/05/18 08:30 96.9 93 22 148/84 (105) 97 05/31/18 22:02 1.0 I&O- Last 24 Hours up to 6 AM 06/05/18 06:00 Intake Total 480 ml Balance 480 ml Laboratory Data 24H LABS Laboratory Tests 2 06/05/18 07:02: Blood Urea Nitrogen 62#H, Creatinine 5.10#H, Sodium Level 134L, Potassium Level 4.6, Chloride Level 98, Carbon Dioxide Level 22, Anion Gap 14, Glomerular Filtration Rate 8.8L, Calcium Level 8.6L, Phosphorus Level 6.4#H, Magnesium Level 2.5H, Albumin 2.3L CBC/BMP Laboratory Tests 06/05/18 07:02 Anion Gap 14 Microbiology Microbiology 05/26/18 Gram Stain - Final, Complete 05/26/18 Body Fluid Culture - Final, Complete GME ATTESTATION GME ATTESTATION My faculty preceptor for this patient encounter was physically present during the encounter and was fully available. All aspects of the patient interview, examination, medical decision making process, and medical care plan development were reviewed and approved by the faculty preceptor. The faculty preceptor is aware and concurs with the plan as stated in the body of this note and will attest to such by his/her cosignature. MARICARMEN LOPEZ DO Jun 05, 2018 10:15
[2018-06-05] MEDS: ACETAMINOPHEN TAB 650MG DOSE (2X325MG) PO PRN ×2 (13:31→15:49)
[2018-06-05 13:35] VITALS: BP 120/58
--- NOTE | 2018-06-05 14:33 | IPN ---
DATE OF SERVICE: 06/05/2018 SUBJECTIVE: The patient is seen and examined this morning on dialysis receiving her maintenance treatment. Denies any acute overnight events or issues. Has been working with physical therapy and requirements in regards to discharge plans. VITAL SIGNS: Temperature 96.9, pulse 93, respiratory rate 22, blood pressure 148/84, saturating 97% on room air. Intake yesterday was 600. Dialysis today removed 1999. Weight in the bed scale today is not recorded. PHYSICAL EXAMINATION: GENERAL: The patient is seen lying comfortably in the hemodialysis unit receiving her maintenance treatment, awake, alert, oriented, conversational, in no acute distress. HEENT: Extraocular muscles are intact. Tongue is moist. NECK: Supple, jugular veins are not elevated. Tunneled hemodialysis catheter in the left chest wall is in use. CARDIAC: S1, S2, regular rate. LUNGS: Clear to auscultation bilaterally. No crackle or rale. ABDOMEN: Soft and nontender. There are bowel sounds. EXTREMITIES: Negative for edema or clubbing. The left upper extremity fistula is patent. SKIN: Normal turgor and temperature. LABORATORY DATA: White count 10.2, hemoglobin 11.1, platelet 306, sodium 134, potassium 4.6, magnesium 2.5. INPATIENT MEDICATIONS: Reviewed by myself and no change from prior. PROBLEMS: 1. End-stage renal disease on hemodialysis on Saturday, , and Saturday schedule. Estimated dry weight now 84 kilos, has decreased substantially over this admission with aggressive dialysis and ultrafiltration. Continue with fluid restriction of 1.5 liters daily. Electrolytes are accetable. Volume status is improved. Vascular surgery is planning for fistulogram tomorrow with premedication for contrast allergy. 2. Pleural effusion and pericardial effusions. These are significantly improving on serial imaging with aggressive dialysis/ultrafiltration. She is now back on her chronic schedule of Saturday, , and Saturday with challenging of her dry weight as tolerated by hemodynamics. 3. Hypertension. Blood pressures are accetable and no changes are being made to her current antihypertensive regimen. 4. Anemia of chronic renal failure. Hemoglobin is at target and Aranesp is presently held.
[2018-06-05] MEDS ORDERED: ONDANSETRON 4 MG TAB (S0181) PO PRN (16:15)
[2018-06-05] MEDS: ASPIRIN 81 MG ENTERIC TAB PO SCH (20:57)
[2018-06-05] MEDS: GABAPENTIN 300 MG CAP PO SCH (20:57)
[2018-06-05] MEDS: AMITRIPTYLINE 10 MG TAB PO SCH (20:57)
[2018-06-05 22:00] VITALS: BP 120/62
[2018-06-06] MEDS: ACETAMINOPHEN TAB 650MG DOSE (2X325MG) PO PRN ×2 (00:50→20:14)
[2018-06-06] MEDS: predniSONE 50 MG TAB PO SCH ×3 (00:50→09:48)
[2018-06-06 05:59] VITALS: BP_SYST 122; BP_SYST 135; BP_SYST 136; BP_DIAS 74; BP_DIAS 75; BP_DIAS 78
[2018-06-06 06:00] VITALS: BP 138/76
[2018-06-06] MEDS: LEVOTHYROXINE 25MCG TABLET (0.025MG) PO SCH (06:10)
[2018-06-06] MEDS: LEVOTHYROXINE 150MCG TABLET (0.15MG) PO SCH (06:10)
[2018-06-06 07:58] LABS: HEMATOCRIT 36.3 % (36.0-47.0); HEMOGLOBIN 11.3 g/dl (12.0-15.5); MEAN CORPUSCULAR HEMOGLOBIN 29.9 pg (27.0-33.0); MEAN CORPUSCULAR HGB CONC 31.1 g/dl (32.0-36.5); PLATELET COUNT, AUTOMATED 314 10^3/uL (150-450); RED BLOOD COUNT 3.78 10^6/uL (4.00-5.40); WHITE BLOOD COUNT 10.3 10^3/uL (4.0-10.0)
[2018-06-06 08:15] LABS: CALCIUM LEVEL 8.9 MG/DL (8.8-10.2); CREATININE FOR GFR 3.84 MG/DL (0.55-1.30); GLOMERULAR FILTRATION RATE 12.2 (>39); POTASSIUM SERUM 5.7 MEQ/L (3.5-5.1)
[2018-06-06] MEDS: MIRALAX *UNIT DOSE* 17GM PACKET PO SCH ×2 (09:00→20:55)
[2018-06-06] MEDS: SENOKOT S TAB PO SCH ×2 (09:00→20:13)
[2018-06-06] MEDS ORDERED: MIDAZOLAM INJ 2 MG/2 ML VIAL (J2250) As Ordered ONE (09:34)
[2018-06-06] MEDS ORDERED: fentaNYL 100 MCG/2 ML INJECTION (J3010) As Ordered ONE (09:34)
[2018-06-06] MEDS ORDERED: LIDOCAINE 2% MDV 20 ML VIAL As Ordered ONE (09:34)
[2018-06-06] MEDS ORDERED: ISOVUE-300 61% 50ML VIAL (Q9967) As Ordered ONE (09:35)
[2018-06-06] MEDS: **hydrALAZINE HCL** 25 MG TAB PO SCH ×3 (09:48→20:15)
[2018-06-06] MEDS: OMEPRAZOLE 20 MG CAP PO SCH (09:48)
[2018-06-06] MEDS: ATENOLOL 25 MG TAB PO SCH (09:48)
[2018-06-06] MEDS: NYSTATIN 100,000 UNITS/GM TOPICAL PWD 15 GM TOP SCH ×2 (09:49→20:14)
--- NOTE | 2018-06-06 10:34 | IPNPDOC ---
Subjective Date Seen The patient was seen on 06/06/18. Subjective Chief Complaint/HPI Patient seen and examined at bedside this AM. No acute events overnight. Patient states she does not understand her dietary instructions. Denies any chest pain, headaches, fevers, chills, abdominal pain, nausea, vomiting. Objective Physical Examination General Exam: Positive: Alert, Cooperative, No Acute Distress Eye Exam: Positive: EOMI ENT Exam: Positive: Atraumatic, Mucous membr. moist/pink Neck Exam: Positive: Supple Heart Exam: Positive: Rate Normal, Normal S1, Normal S2; Negative: Tachycardic, Murmurs, Rubs Abdomen Exam: Positive: Normal bowel sounds, Soft (obese); Negative: Tenderness Extremity Exam: Negative: Clubbing, Edema Skin Exam: Positive: Nl turgor and temperature; Negative: Rash Neuro Exam: Positive: Normal Speech Psych Exam: Positive: Mental status NL, Mood NL Assessment /Plan Problems (1) ESRD (end stage renal disease) on dialysis Status: Acute Problem Text: 06/06- Patient scheduled for fistulogram with Dr. Nicolas this afternoon. If it needs to be repaired she will be here through the weekend. 06/05patient receiving dialysis today. She is on her normal schedule. Dr. Nicolas's plan is to pre-medicate her due to her contrast allergy and do the fistogram likely tomorrow around 1300 and if it looks good she will be okay to go home as long as she is cleared by PT and if not he will keep her on his service to do the surgical repair on Saturday or Saturday. 06/03- Patient is to resume normal dialysis T,, Sat. She received albumin today and only had 2kg taken off as her blood pressure was low (2) Hyperkalemia Status: Acute Problem Text: Patient with hyperkalemia at 5.7 this AM, will defer to nephrology for management. (3) Pleural effusion Status: Acute Response to Treatment: Stable Problem Text: 06/06- Breath sounds okay. No intervention at this time. 06/05: Patient will continue to receive HD on assigned days and adhere to fluid restriction to keep draining effusions. 06/04: effusions better on right. slight increase in left with improvement in consolidation. pericardial effusion better. 06/03- Spoke with nephrology, at this point they are recommending a repeat chest CT tomorrow to evaluate for resolution of the right sided effusion. If it is large enough that a thoracentesis is needed, IR can be consulted to drain. Otherwise, patient is to resume normal dialysis T,Th, Sat. 06/02- Per Dr. Mendes, their is resolution of the left sided effusion. No further intervention warranted per CT surgery. 05/30 Dr. Mendes defers catheter to drain-prefers to remove c continued dialysis 05/30/18 CT chest: Impression: 1. Moderate bilateral pleural effusions along with lingular and bibasilar atelectasis and small residual pericardial effusion are again identified but considerably improved when compared to prior examination. 2. No new acute process identified. (4) Pericardial effusion Status: Acute Response to Treatment: Stable Problem Text: 06/05: Improved per CT, no intervention required 06/04: improved per CT 06/02- Per Dr. Mendes, their was a decrease in the size of the pericardial ef fusion. No further intervention warranted per CT surgery. no h/o tamponade 05/28/18 TTE down to [id number] (5) Dyslipidemia Status: Chronic Problem Text: Continue home medication. (6) HTN (hypertension) Status: Chronic Problem Text: Continue patient's medications. Monitor vitals. (7) Constipation Status: Chronic Problem Text: 06/03- Patient continues to have more regular bowel movements although today she did complain of loose stool and fecal incontinence. She states that due to past intraabdominal surgeries she does not feel the urge to go and thus will only have a bowel movement every 10-14 days. Will continue her current regimen as her abdomen is still grossly full of stool. 06/02-stable BMs on current regimen. Patient notes in the last 2 days she has woken up with stool in her depends and did not feel the urge or even know the stool came out. No saddle anesthesia, loss of bladder, and patient is able to adequately move her feet. Patient claims staff had to clean her up, but staff denies this is the case. Her abdomen is still filled with stool on palpation and her inability to feel the bowel movements may be the result of overactivation of stretch receptors in the anal musculature, giving her a functional hirschsprung like constipation. We will increase her bowel regimen so she can get rid of further stool. (8) Physical deconditioning Status: Chronic Problem Text: 06/06: Patient unable to do PT yesterday. Will try again today. 06/05: Patient continues to improve with physical therapy. They're estimating only 2 more sessions are needed. She is having difficulty participating in physical therapy post dialysis but will attempt to try it today. 06/04: worked well with PT today. may be ready for D/C in 1-2 days. 06/02- Not safe per PT- will need home with services. 05/29 not safe per PT-plan home c services Plan/VTE VTE Prophylaxis Ordered?: Yes VS, I&O, 24H, Fishbone Vital Signs/I&O Vital Signs Date Time Temp Pulse Resp B/P (MAP) Pulse Ox O2 Delivery O2 Flow Rate FiO2 06/06/18 09:48 98 138/76 06/06/18 06:00 98.0 20 98 05/31/18 22:02 1.0 I&O- Last 24 Hours up to 6 AM 06/06/18 06:00 Intake Total 1195 ml Output Total 2000 ml Balance -805 ml Laboratory Data 24H LABS Laboratory Tests 2 06/06/18 07:35: Nucleated Red Blood Cells % (auto) 0.0, Anion Gap 12, Glomerular Filtration Rate 12.2L, Blood Urea Nitrogen 44H, Creatinine 3.84H, Sodium Level 136, Potassium Level 5.7H, Chloride Level 98, Carbon Dioxide Level 26, Calcium Level 8.9 CBC/BMP Laboratory Tests 06/06/18 07:35 Red Blood Count 3.78 L, Mean Corpuscular Volume 96.0, Mean Corpuscular Hemoglob in 29.9, Mean Corpuscular Hemoglobin Concent 31.1 L, Red Cell Distribution Width 13.1, Calcium Level 8.9 GME ATTESTATION GME ATTESTATION My faculty preceptor for this patient encounter was physically present during the encounter and was fully available. All aspects of the patient interview, examination, medical decision making process, and medical care plan development were reviewed and approved by the faculty preceptor. The faculty preceptor is aware and concurs with the plan as stated in the body of this note and will attest to such by his/her cosignature. MARICARMEN LOPEZ DO Jun 06, 2018 10:34
[2018-06-06] MEDS ORDERED: diphenhydrAMINE 50 MG CAP PO ONE (11:00)
[2018-06-06 16:29] VITALS: BP 121/73
[2018-06-06] MEDS ORDERED: HEPARIN 1,000 UNITS/ML 10ML VIAL (FOR RADIOLOGY& DIALYSIS ONLY) XX ONE (17:00)
[2018-06-06] MEDS: AMITRIPTYLINE 10 MG TAB PO SCH (20:12)
[2018-06-06] MEDS: ASPIRIN 81 MG ENTERIC TAB PO SCH (20:12)
[2018-06-06] MEDS: GABAPENTIN 300 MG CAP PO SCH (20:13)
[2018-06-06 22:00] VITALS: BP 149/75
--- NOTE | 2018-06-06 23:26 | IPN ---
DATE: 06/06/2018 SUBJECTIVE: The patient seen and examined this morning at the bedside in the hemodialysis unit. She is having an extra treatment due to hyperkalemia on labs today. She is status post fistulogram today as well and is for discharge tomorrow with fistuloplasty as an outpatient on Saturday with Dr. Nicolas. Temperature 98.0, pulse 72, respiratory rate 16, blood pressure 121/73, saturating 97% on room air. Intake yesterday was 1095, dialysis yesterday moved 2000 mL. Dialysis today removed 1000 mL. Weight in the bed scale today is 83.2 kg. GENERAL: The patient is seen in the hemodialysis unit receiving her maintenance treatment, awake, alert, oriented, comfortable in no acute respiratory distress. Extraocular muscles are intact. Tongue is moist. Neck is supple. Jugular veins are not elevated. Tunnel hemodialysis catheter in the left chest wall is new. CARDIAC: S1, S2 regular rate and rhythm. LUNGS: Clear to auscultation bilaterally. No crackles or rales. ABDOMEN: Soft and nontender. There are bowel sounds. EXTREMITIES: Negative for edema or clubbing. The left upper extremity fistula is patent. SKIN: Normal turgor and temperature. LABORATORY: Sodium 136, potassium 5.7, bicarbonate 26, calcium 8.9. INPATIENT MEDICATIONS: Were reviewed by myself and noted to receive prednisone for premedication for contrast allergy. Remainder of medications are unchanged from prior PROBLEMS: 1. End-stage renal disease on hemodialysis Saturday, , Saturday schedule. She received an extra dialysis treatment today in view of hyperkalemia. Her estimated dry weight has significantly downward trended over the course of this admission. She is being setup for afternoon care time for outpatient dialysis tomorrow. Her new dry weight has been discussed with the outpatient dialysis nurse. Continue with fluid restriction of 1.5 liters daily and continue potassium restriction in the diet. 2. Hemodialysis access. The patient is status post fistulogram today with vascular surgery and she is pending fistuloplasty which will be performed as an outpatient on Saturday. 3. Pleural effusion and pericardial effusion. These are significantly improved on serial imaging with aggressive dialysis/ultrafiltration. A new estimated dry weight has been set. Continue oral fluid restriction. 4. Hypertension. Blood pressures are acceptable and no changes are being made to her current antihypertensive regimen. She continues on atenolol and hydralazine with holding parameters. 5. Anemia of chronic renal failure. Hemoglobin is 11.3, which is optimal. No intervention is needed at this time.
[2018-06-07 05:54] LABS: HEMATOCRIT 32.4 % (36.0-47.0); HEMOGLOBIN 10.2 g/dl (12.0-15.5); MEAN CORPUSCULAR HEMOGLOBIN 30.2 pg (27.0-33.0); MEAN CORPUSCULAR HGB CONC 31.5 g/dl (32.0-36.5); MEAN CORPUSCULAR VOLUME 95.9 fl (80.0-96.0); PLATELET COUNT, AUTOMATED 332 10^3/uL (150-450); RED BLOOD COUNT 3.38 10^6/uL (4.00-5.40); WHITE BLOOD COUNT 13.8 10^3/uL (4.0-10.0)
[2018-06-07] MEDS: ATENOLOL 25 MG TAB PO SCH (05:54)
[2018-06-07] MEDS: OMEPRAZOLE 20 MG CAP PO SCH (05:55)
[2018-06-07] MEDS: SENOKOT S TAB PO SCH (05:55)
[2018-06-07] MEDS: MIRALAX *UNIT DOSE* 17GM PACKET PO SCH (05:55)
[2018-06-07] MEDS: LEVOTHYROXINE 150MCG TABLET (0.15MG) PO SCH (05:55)
[2018-06-07] MEDS: LEVOTHYROXINE 25MCG TABLET (0.025MG) PO SCH (05:55)
[2018-06-07 05:56] VITALS: BP 135/78
[2018-06-07] MEDS: **hydrALAZINE HCL** 25 MG TAB PO SCH (05:56)
[2018-06-07 06:00] VITALS: BP 133/78
[2018-06-07 06:18] LABS: CALCIUM LEVEL 8.3 MG/DL (8.8-10.2); CREATININE FOR GFR 3.65 MG/DL (0.55-1.30); GLOMERULAR FILTRATION RATE 12.9 (>39); POTASSIUM SERUM 4.1 MEQ/L (3.5-5.1)
[2018-06-07 06:28] VITALS: BP_SYST 129; BP_SYST 138; BP_SYST 158; BP_DIAS 70; BP_DIAS 81
[2018-06-07] MEDS: ACETAMINOPHEN TAB 650MG DOSE (2X325MG) PO PRN (08:11)
[2018-06-07] MEDS ORDERED: HYDR25TA PO (10:38)
[2018-06-07] MEDS ORDERED: ATEN25TA PO (10:38)
--- NOTE | 2018-06-07 15:11 | DS.PDOC ---
Discharge Summary General Date of Admission May 21, 2018 at 23:31 Date of Discharge 06/07/18 Primary Care Physician: BUBBA ROSENTHAL DO Attending Physician: Cole Alaniz M.D. Specialist/Consultants Involve: PURA CHINO DO Specialist/Consultants Involve Debi Watters MD, Gigi Mendes, Duane SULLIVAN Discharge Summary PROCEDURES PERFORMED DURING STAY: permacath placement, echocardiogram x2. ADMITTING/DISCHARGE DIAGNOSES: #. Bilateral pleural effusions #. Pericardial effusion #. 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 ESRD on HD #. Constipation #. Dyslipidemia #. Hypertension #. Polycystic Kidney Disease #. Hypothyroidism #. Anemia of Chronic Disease #. GERD COMPLICATIONS/CHIEF COMPLAINT: Constipation. HISTORY OF PRESENT ILLNESS/HOSPITAL COURSE: Mrs. Romero presented to the emergency department on 05/21/18 complaining of shortness of breath and no bowel movement for the past 3 weeks. Despite trying to use stool softeners she had not been able to go and had a poor appetite. She was supposed to attend hemodialysis twice during the previous week but didn't go because she was not feeling well. Admitting work up showed hyperkalemia and hypertension. Abdominal CT scan performed in the emergency department showed fecal stasis in the colon and moderate bilateral pleural effusions. Follow-up chest CT confirmed large bilateral pleural effusions and a pericardial effusion. Nephrology was consulted for her hemodialysis and for management of her fluid status. Early in her admission their were difficulties with her fistula necessitating ultrafiltration and fluoroscopic manipulation to determine whether a new one was needed. The effusions were managed with hemodialysis, however as her symptoms were not improving a diagnostic thoracentesis was done both for therapeutic and diagnostic reasons. Ultimately, it was found to likely be secondary to her renal failure. Moreover, as a result of the fluid overload an echocardiogram was done that demonstrated decompensated combined systolic and diastolic congestive heart failure with EF 40-45%. An additional echocardiogram was ordered specifically to look into the pericardial effusion however at that time there was improvement in the effusion as a result of serial dialysis sessions. Dr. Mendes was consulted for consideration of surgical management for her pericardial effusion and pleur al effusions, however he did not feel it was indicated as they were improving. Repeated chest x-rays and CTs continued to show first persistence and then improvements of the pleural effusions, so the serial dialysis sessions were continued. The patient's discharge was delayed secondary to her fistulogram malfunctioning and her being too fatigued postdialysis. However, she was seen for an angiogram by Dr. Nicolas and he ultimately concluded that he could fix her fistulogram outpatient. She was cleared by physical therapy and ultimately deemed stable for discharge on 06/07/2018. DISCHARGE MEDICATIONS: Please see below. ALLERGIES: Please see below. PHYSICAL EXAMINATION ON DISCHARGE: VITAL SIGNS: Please see below. GENERAL: Alert, oriented, no acute distress. HEENT: Normocephalic, atraumatic. EOMI. Sclera non-icteric. Mucous membranes moist and pink. NECK: Supple. Non-tender. No JVD. No thyromegaly or lymphadenopathy CARDIOVASCULAR EXAMINATION: RRR. Normal S1 and S2. No Murmurs, gallops, or rubs on auscultation RESPIRATORY EXAMINATION: CTAB with full breath sounds. No wheezes, crackles, or rhonchi. ABDOMINAL EXAMINATION: Obese, soft, non-tender, non-distended. EXTREMITIES: No signs of lower extremity swelling or edema. LUE with bandaid covering site of fistulogram SKIN: No skin rashes or lesions. NEUROLOGICAL EXAMINATION: Normal Speech. No focal neuro deficits appreciated. PSYCHIATRIC EXAMINATION: Normal mood. LABORATORY DATA: Please see below. IMAGIN05/21/18 CT head without contrast: Generalized atrophy and chronic ischemic changes, similar to previous examination. No acute intracranial process or intracranial hemorrhage 05/21/18 chest x-ray: Bilateral pleural effusions, largest on the left. Left upper lobe atelectasis. Cardiomegaly. Question right hilar infiltrate/mass versus artifact from portable positioning 05/22/[address]: Large bilateral pleural effusions, left greater than right. Heart is enlarged and there is a pericardial effusion measuring up to 14 mm in thickness. 05/22/18 Abdomen/pelvis CT: At least moderate fecal stasis in the colon no definite evidence of enteric obstruction. No other acute intra-abdominal or pelvic process. Moderate bilat eral pleural effusions. Heart is enlarged and there is pericardial effusion measuring up to 14 mm. Additional nonemergent findings as described above. 05/23/18 guidance fluoroscopy (performed) 05/24/18 chest x-ray: There is a dual lumen left IJ central venous catheter with the tip at the confluence of the superior vena cava and right atrium as an interval change. There is no pneumothorax. There are bilateral pleural effusions, unchanged. Cardiac size is enlarged, unchanged. 05/26/18 thoracentesis ultrasound guided thoracentesis (performed) 05/26/18 chest x-ray: Pleural effusions and bibasilar atelectasis essentially unchanged. 05/26/18 chest biopsy: No pneumothorax seen. Improved aeration left lung. Decreased left effusion. 05/28/18 chest x-ray: Moderate pleural effusions and bilateral lower lobe opacities (left greater than right) essentially unchanged. 05/29/18 chest x-ray: 1. Relatively stable appearance to the bilateral pleuroparenchymal changes with possible small left apical pneumothorax not identifiable on prior examination. 05/30/[address]: 1. Moderate bilateral pleural effusions along with lingular and bibasilar atelectasis and small residual pericardial effusion are again identified but considerably improved when compared to prior examination. 2. No new acute process identified. 06/04/[address]: Improved right pleural effusion with very mild residual. There is also improvement of right lower lobe consolidation with only minimal residual. Mild increase in small left effusion. Left lung parenchymal opacities are stable. Mild improvement of pericardial effusion. 06/06/18 guidance fluoroscopy: Angiogram performed by Dr. Nicolas PROGNOSIS: fair ACTIVITY: As tolerated with walker as per PT instruction DIET: renal diet DISCHARGE PLAN: discharge home. DISPOSITION: Home, Self-Care. DISCHARGE INSTRUCTIONS: 1. Please follow up outpatient with Dr. Rosenthal in 1 week 2. Please follow up on Saturday with Dr. Nicolas for fistulogram repair procedure. 3. Please follow up with nephrology within 1 week. DISCHARGE CONDITION: [Stable]. TIME SPENT ON DISCHARGE: Greater than 45 minutes. Vital Signs/I&Os Vital Signs Date Time Temp Pulse Resp B/P (MAP) Pulse Ox O2 Delivery O2 Flow Rate FiO2 06/07/18 06:28 60 158/70 (99) 55 138/70 (92) 75 129/81 (97) 06/07/18 06:00 98.3 20 99 I&O- Last 24 Hours up to 6 AM 06/07/18 06:00 Intake Total 1680 ml Output Total 1000 ml Balance 680 ml Laboratory Data Labs 24H Laboratory Tests 2 06/07/18 05:25: Nucleated Red Blood Cells % (auto) 0.0, Anion Gap 12, Glomerular Filtration Rate 12.9L, Blood Urea Nitrogen 42H, Creatinine 3.65H, Sodium Level 135L, Potassium Level 4.1#, Chloride Level 97L, Carbon Dioxide Level 26, Calcium Level 8.3L CBC/BMP Laboratory Tests 06/07/18 05:25 Red Blood Count 3.38 L, Mean Corpuscular Volume 95.9, Mean Corpuscular Hemoglobin 30.2, Mean Corpuscular Hemoglobin Concent 31.5 L, Red Cell Distribution Width 13.1, Calcium Level 8.3 L Discharge Medications Scheduled (Auryxia) 210 Mg Tab, 420 MG PO WM, (Reported) Amitriptyline HCl (Amitriptyline HCl) 10 Mg Tab, 30 MG PO QHS, (Reported) Amlodipine Besylate (Amlodipine Besylate) 10 Mg Tab, 10 MG PO DAILY, (Reported) Aspirin (Aspir-81) 81 Mg Tab, 81 MG PO QHS, (Reported) Gabapentin (Gabapentin) 300 Mg Cap, 300 MG PO QHS, (Reported) Hydralazine HCl (Hydralazine HCl) 25 Mg Tab, 25 MG PO TID, (Reported) Levothyroxine Sodium (Synthroid) 175 Mcg Tab, 175 MCG PO DAILY, (Reported) Omeprazole (Omeprazole) 40 Mg Cap, 40 MG PO DAILY, (Reported) Scheduled PRN Docusate Sodium (Docusate Sodium) 100 Mg Cap, 100 MG PO DAILY PRN for CONSTIPATION, (Reported) Fexofenadine Hydrochloride (Mali Allergy) 180 Mg Tab, 180 MG PO DAILY PRN for ALLERGIES, (Reported) Fluticasone Propionate (Flonase Allergy Relief) 50 Mcg/Act Spr, 1 SPRAY NA DAILY PRN for NASAL CONGESTION, (Reported) Polyethylene Glycol (Miralax) 1 Pow Pow, 17 GM PO DAILY PRN for CONSTIPATION, (Reported) Allergies Coded Allergies: Ryan (Unverified Allergy, Severe, ANAPHYLAXIS, 07/16/17) FISH (Unverified Allergy, Severe, ANAPHYLAXIS, 01/28/17) TAPE (Verified Allergy, Mild, ADHESIVES-RASH AND REDNESS, 01/28/17) Contrast Media (Unverified Allergy, Unknown, PATIENT STATES SHE CAN TOLERATE PO, 01/28/17) FRUIT (Verified Allergy, Unknown, FRUIT WITH SKIN, 01/28/17) Iodine (Unverified Allergy, Unknown, 01/28/17) Codeine (Unverified Adverse Reaction, Unknown, STOMACH CRAMPS, 01/28/17) GME ATTESTATION GME ATTESTATION My faculty preceptor for this patient encounter was physically present during the encounter and was fully available. All aspects of the patient interview, examination, medical decision making process, and medical care plan development were reviewed and approved by the faculty preceptor. The faculty preceptor is aware and concurs with the plan as stated in the body of this note and will attest to such by his/her cosignature. ATTENDING NOTE Patient was seen and examined by the attending physician. I feel she is ready for discharge. The case was reviewed with the PGY-1. MARICARMEN LOPEZ DO Jun 07, 2018 15:11 Cole Alaniz M.D. Jun 08, 2018 10:33
[2018-06-07] MEDS ORDERED: HYDR-3910 PO (23:39)
[2018-06-07] MEDS ORDERED: AMLO10TA5 PO (23:39)
== END 2018-06-07 11:00 | disposition home or self-care (01) | DRG 186 ==
LOC: M ED 18:42 → M ED INP 23:31 → EEVIPCON 23:31 → M MSPAV 05-22 02:27
PROVIDERS: ADMIT Hospitalist; ATTEND Family Medicine
PROC: 02HV33Z Insertion of Infusion Device into Superior Vena Cava, Percutaneous Approach (ICD-10-PCS; principal; 2018-05-23)
PROC: 0JH63XZ Insertion of Tunneled Vascular Access Device into Chest Subcutaneous Tissue and Fascia, Percutaneous Approach (ICD-10-PCS; 2018-05-23)
PROC: 5A1D70Z Performance of Urinary Filtration, Intermittent, Less than 6 Hours Per Day (ICD-10-PCS; 2018-05-24)
PROC: 30233J1 Transfusion of Nonautologous Serum Albumin into Peripheral Vein, Percutaneous Approach (ICD-10-PCS; 2018-06-03)
DX: J90 Pleural effusion, not elsewhere classified (principal); I50.43 Acute on chronic combined systolic (congestive) and diastolic (congestive) heart failure; N18.6 End stage renal disease; I31.3 Pericardial effusion (noninflammatory); I13.2 Hypertensive heart and chronic kidney disease with heart failure and with stage 5 chronic kidney disease, or end stage renal disease; Q61.3 Polycystic kidney, unspecified; N25.81 Secondary hyperparathyroidism of renal origin; I82.C11 Acute embolism and thrombosis of right internal jugular vein; K59.00 Constipation, unspecified; K21.9 Gastro-esophageal reflux disease without esophagitis; E78.5 Hyperlipidemia, unspecified; E03.9 Hypothyroidism, unspecified; D63.1 Anemia in chronic kidney disease; Z79.899 Other long term (current) drug therapy; Z79.82 Long term (current) use of aspirin; Z88.5 Allergy status to narcotic agent; Z91.041 Radiographic dye allergy status; Z91.018 Allergy to other foods; Z91.013 Allergy to seafood; E87.6 Hypokalemia; M19.90 Unspecified osteoarthritis, unspecified site; G62.9 Polyneuropathy, unspecified; I34.0 Nonrheumatic mitral (valve) insufficiency

== ENCOUNTER 2018-06-07 20:16 | Inpatient (IN) | payer MEDICARE, OTHER ==
[~2018-06-07] VITALS: Ht 167.6 cm; Wt 86.8 kg
[~2018-06-07 20:16] MED LIST changes: +AMIT50TA PO; +ASPI1TAB PO; -ASPI81TA26 PO; +ATEN25TA PO; +AURY1TAB PO; +COLA100C5 PO; +DOCU100C16 PO; +GABA-843 PO; +HYDR25TA PO; +MIRA33504 PO; +OMEP40CA2 PO; +PATIENT COMMENT; +RENATAB5 PO; +RENV2TAB PO; +SENN8.6T7 PO; +VALS1TAB46 PO; +VALS1TAB47 PO; -VALS1TAB66 PO; -VALS1TAB67 PO
[2018-06-07] MEDS ORDERED: ONDANSETRON 4MG/2ML VIAL (J2405) IV ONE (20:30)
[2018-06-07] MEDS ORDERED: NS 500 ML IV ONE (20:30)
[2018-06-07 20:40] LABS: BASO # 0.1 10^3/uL (0.0-0.2); BASO % 0.3 % (0.0-1.0); EOS # 0.1 10^3/uL (0.0-0.50); EOS % 0.8 % (0.0-3.0); HEMOGLOBIN 12.1 g/dl (12.0-15.5); LYMPH % 1.4 % (24.0-44.0); MEAN CORPUSCULAR HEMOGLOBIN 29.9 pg (27.0-33.0); MEAN CORPUSCULAR VOLUME 96.3 fl (80.0-96.0); MONO # 0.5 10^3/uL (0.0-0.8); NEUTROPHILS # 14.9 10^3/uL (1.8-7.7); NEUTROPHILS % 93.9 % (36.0-66.0); PLATELET COUNT, AUTOMATED 396 10^3/uL (150-450); RED BLOOD COUNT 4.05 10^6/uL (4.00-5.40); WHITE BLOOD COUNT 15.9 10^3/uL (4.0-10.0)
[2018-06-07 20:48] LABS: LYMPH # 0.2 10^3/uL (1.5-4.5)
[2018-06-07 20:54] LABS: INR 1.17; PROTHROMBIN TIME 15.1 SECONDS (12.1-14.4)
[2018-06-07 21:17] LABS: ALBUMIN 2.7 GM/DL (3.2-5.2); ALT/SGPT 37 U/L (12-78); BILIRUBIN,DIRECT 0.1 MG/DL (0.0-0.2); BILIRUBIN,TOTAL 0.3 MG/DL (0.2-1.0); BLOOD UREA NITROGEN 43 MG/DL (7-18); CALCIUM LEVEL 7.7 MG/DL (8.8-10.2); CARBON DIOXIDE LEVEL 22 MEQ/L (21-32); CHLORIDE LEVEL 100 MEQ/L (98-107); CK-MB VALUE MASS < 1.0 NG/ML (<3.6); CPK CREATINE PHOSPHOKINASE 36 U/L (26-192); CREATININE FOR GFR 3.32 MG/DL (0.55-1.30); GLOMERULAR FILTRATION RATE 14.4 (>39); GLUCOSE, FASTING 121 MG/DL (70-100); LIPASE 148 U/L (73-393); MB/CK RELATIVE INDEX 2.78 (< OR =4); POTASSIUM SERUM 4.7 MEQ/L (3.5-5.1); SODIUM LEVEL 135 MEQ/L (136-145); TOTAL PROTEIN 7.1 GM/DL (6.4-8.2); TROPONIN I < 0.02 NG/ML (< 0.10)
--- NOTE | 2018-06-07 22:20 | REPVR ---
EXAM: CT Chest Without Contrast EXAM DATE/TIME: 06/07/2018 8:31 PM CLINICAL HISTORY: 77 years old, female; Signs and symptoms; Shortness of breath; Additional info: SOB, n/v/d, syncope, HX of ckd TECHNIQUE: Axial computed tomography images of the chest without intravenous contrast. All CT scans at this facility use at least one of these dose optimization techniques: automated exposure control; mA and/or kV adjustment per patient size (includes targeted exams where dose is matched to clinical indication); or iterative reconstruction. Coronal and sagittal reformatted images were created and reviewed. COMPARISON: CT Chest without contrast 06/04/2018 8:20 AM FINDINGS: Lungs: There is mild consolidation of lung in the left midlung field consistent with atelectasis and infiltrate which has decreased since 05/30/2018. Pleural space: There is a moderate left pleural effusion. The right pleural effusion has resolved since the previous exam. The left pleural effusion has mildly increased. Heart: There is mild cardiac enlargement. There is small amount of pericardial fluid. Mediastinum: The trachea appears within the range of normal. Pulmonary arteries: There is no bolus IV contrast therefore it would be impossible to evaluate for pulmonary embolus. Aorta: Normal. No aortic aneurysm. Lymph nodes: Unremarkable. No enlarged lymph nodes. Bones/joints: DJD. Soft tissues: Unremarkable. Liver: There is a 3.4 CM low density lesion in the right lobe liver and unchanged since examination 2018, probably a complex cyst. There are 2 smaller cysts of the left lobe of the liver. IMPRESSION: 1. The previous right pleural effusion has resolved. 2. There is a moderate left pleural effusion that has mildly increased. 3. There is atelectasis and infiltrate left midlung field and this has decreased since 05/30/2018. 4. Please see the above comments. Electronically signed by: Shamir Ramirez On 06/07/2018 22:19:58 PM
--- NOTE | 2018-06-07 22:41 | REPVR ---
EXAM: CT Abdomen and Pelvis Without Contrast EXAM DATE/TIME: 06/07/2018 8:31 PM CLINICAL HISTORY: 77 years old, female; Signs and symptoms; Nausea and vomiting; Additional info: SOB, n/v/d, syncope, HX of ckd TECHNIQUE: Axial computed tomography images of the abdomen and pelvis without contrast. All CT scans at this facility use at least one of these dose optimization techniques: automated exposure control; mA and/or kV adjustment per patient size (includes targeted exams where dose is matched to clinical indication); or iterative reconstruction. Coronal and sagittal reformatted images were created and reviewed. COMPARISON: CT ABD/PEL W/PO CONTRAST ONLY 05/22/2018 2:01 AM FINDINGS: Lower thorax: No acute findings. ABDOMEN: Pancreas: There is fatty infiltration of the pancreas but no evidence of gross enlargement. Spleen: Normal appearing spleen. Adrenals: No mass. Kidneys and ureters: There are multiple cysts in both the right and left kidney consistent with severe polycystic kidney disease. There is no evidence of hydronephrosis. Stomach and bowel: Surgical clips are noted at the stomach. There is a dilated loop of small bowel with surgical clips consistent with previous surgery. There is no definite evidence of a bowel obstruction. PELVIS: Bladder: The urinary bladder is empty. Reproductive: Unremarkable as visualized. ABDOMEN and PELVIS: Intraperitoneal space: There is no evidence of free fluid in the abdomen or pelvis. Bones/joints: No acute fracture. No dislocation. Soft tissues: Surgical clips are noted anterior abdominal wall on the left. Vasculature: There is calcification of the aorta consistent with atherosclerotic changes. Lymph nodes: There is no evidence of lymphadenopathy. IMPRESSION: 1. Moderate left pleural effusion. 2. Postoperative changes in the abdomen. 3. Polycystic kidney disease. COMMENT: Consistent with the [employer] Incidental Findings Committee Report (J Am Rachael Radiol 2010): Unless the patients specific circumstances suggest otherwise, any liver lesion 0.5 cm or less, any cystic kidney lesion less than 1.0 cm, and/or any adrenal lesion 1.0 cm or less not otherwise characterized in this report as possessing suspicious or indeterminate imaging features is/are highly likely to be benign and do not require follow-up imaging or biopsy. Electronically signed by: Shamir Ramirez On 06/07/2018 22:40:45 PM
[2018-06-07] MEDS ORDERED: HYDR-3910 PO (23:39)
[2018-06-07] MEDS ORDERED: AMLO10TA5 PO (23:39)
[2018-06-07] MEDS: NS 1,000 ML IV SCH (23:55)
[2018-06-08] MEDS: HEPARIN SOD (PORCINE) 5000 UNITS/ML VIAL SC SCH ×3 (06:05→20:50)
[2018-06-08 06:55] LABS: BASO % 0.3 % (0.0-1.0); EOS # 0.1 10^3/uL (0.0-0.50); EOS % 0.7 % (0.0-3.0); HEMOGLOBIN 10.9 g/dl (12.0-15.5); LYMPH # 0.3 10^3/uL (1.5-4.5); LYMPH % 2.9 % (24.0-44.0); MEAN CORPUSCULAR HEMOGLOBIN 29.9 pg (27.0-33.0); MEAN CORPUSCULAR HGB CONC 31.1 g/dl (32.0-36.5); MEAN CORPUSCULAR VOLUME 95.9 fl (80.0-96.0); MONO # 0.5 10^3/uL (0.0-0.8); MONO % 4.5 % (0.0-5.0); NEUTROPHILS # 9.5 10^3/uL (1.8-7.7); NEUTROPHILS % 90.9 % (36.0-66.0); PLATELET COUNT, AUTOMATED 361 10^3/uL (150-450); RED BLOOD COUNT 3.65 10^6/uL (4.00-5.40); WHITE BLOOD COUNT 10.4 10^3/uL (4.0-10.0)
[2018-06-08 07:14] LABS: CALCIUM LEVEL 7.4 MG/DL (8.8-10.2); CREATININE FOR GFR 3.76 MG/DL (0.55-1.30); GLOMERULAR FILTRATION RATE 12.5 (>39); MAGNESIUM LEVEL 2.2 MG/DL (1.8-2.4); POTASSIUM SERUM 4.1 MEQ/L (3.5-5.1)
[2018-06-08] MEDS ORDERED: PANTOPRAZOLE 40MG INJ (PROTONIX) (C9113) IV SCH (09:00)
--- NOTE | 2018-06-08 10:36 | HPE ---
DATE OF ADMISSION: 06/07/2018 PRIMARY CARE PROVIDER: Dr. Rosenthal ARCHEOLOGIST CLASSICAL: Dr. Calvin CHIEF COMPLAINT: Nausea, vomiting and abdominal pain. HISTORY OF THE PRESENT ILLNESS: The patient is a 77-year-old white female with several chronic medical conditions, including end-stage renal disease - on dialysis, presented to the emergency room (ER) for evaluation of above complaints. History is provided by herself, as well as by review of the chart. However, the patient is a poor historian. Patient had been hospitalized here from 05/21/2018, and she was discharged home just this morning. Per the , she left the hospital in the morning and then they went to [employer] to eat a sandwich and then went home, and then in the afternoon she went to dialysis. However, during dialysis she developed severe diarrhea and vomiting as well as abdominal pain, so dialysis was stopped and she was sent to the ER for further evaluation. In the ER, her symptoms resolved gradually. However, she states she is not feeling good, so medicine service was called for admission. REVIEW OF SYSTEMS: Denies fever. No chills. No headache. No blurred vision. No shortness of breath. Positive nausea, positive vomiting but no hematemesis. Positive abdominal pain, which is diffuse. It is about 6/10 in severity and no radiation. Positive diarrhea but no bloody diarrhea. All other systems reviewed but negative. PAST MEDICAL HISTORY: 1. End-stage renal disease, on dialysis. 2. Hypertension. 3. Dyslipidemia. PAST SURGICAL HISTORY: She had gastric bypass surgery in 1978, bilateral kidney stones removed, and bilateral breast benign nodule removed, hysterectomy, cholecystectomy, and appendectomy in the past. ALLERGIES: Allergic to INTRAVENOUS (IV) DYE. FAMILY HISTORY: Noncontributory. SOCIAL HISTORY: Denies tobacco use. Denies alcohol abuse. Denies illicit drug abuse. She is a FULL CODE. MEDICATIONS: Reviewed. PHYSICAL EXAMINATION: VITAL SIGNS: Temperature is 97 and heart rate is 80, respirations 18, blood pressure 114/52, and oxygen saturation 100% on room air. GENERAL: She is awake, alert, oriented times three. She is not in acute distress. HEENT: Atraumatic. Pupils are equal, round and reactive to light. No jaundice. Extraocular muscles intact. Ears, nose and throat: Normal. Mouth: Mucosa a little dry. NECK: No jugular venous distention (JVD). No bruits. LUNGS: Clear. No wheezing, no crackles. HEART; S1, S2, regular. No murmur. ABDOMEN: Soft. Bowel sounds positive, mild diffuse tenderness but no rebound. LOWER EXTREMITIES: No edema in bilateral lower extremities. NEUROLOGIC: Nonfocal. SKIN: No rash. PSYCHOLOGIC: No acute psychosis. DIAGNOSTIC AND LAB STUDIES: CBC and differential showed WBC 15.9, hemoglobin and hematocrit 12.1 over 39, platelets 396. Sodium is 135, potassium 4.0, chloride 100, bicarbonate 22, BUN 43, creatinine was 3.32. Blood culture times two within normal limits. CT of the abdomen and pelvis did not show any acute changes. IMPRESSION: 1. Acute gastroenteritis. 2. End-stage renal disease, on hemodialysis. 3. Hypertension. 4. Dyslipidemia. 5. Polycystic kidney disease. 6. Hypothyroidism. 7. Chronic anemia. 8. Acid reflux. PLAN: The patient will be admitted to observation. She presented to the ER with acute onset nausea, vomiting, diarrhea, abdominal pain but her symptoms have almost resolved in the ER. Will start her on a clear liquid diet, advance as tolerated and will continue her home medications. Meanwhile, will followup the cultures. PABLO
[2018-06-08 16:00] VITALS: BP 132/94
[2018-06-08] MEDS ORDERED: DICYCLOMINE 10 MG CAP PO PRN (17:00)
[2018-06-08] MEDS: NS 1,000 ML IV SCH (17:25)
[2018-06-08] MEDS: ASPIRIN 81 MG CHEW TABLET PO SCH (20:50)
[2018-06-08] MEDS: AMITRIPTYLINE 10 MG TAB PO SCH (20:50)
[2018-06-08] MEDS: GABAPENTIN 300 MG CAP PO SCH (20:50)
[2018-06-08 22:00] VITALS: BP 134/104
[2018-06-09] MEDS: LEVOTHYROXINE 150MCG TABLET (0.15MG) PO SCH (05:12)
[2018-06-09] MEDS: HEPARIN SOD (PORCINE) 5000 UNITS/ML VIAL SC SCH ×3 (05:12→21:44)
[2018-06-09] MEDS: LEVOTHYROXINE 25MCG TABLET (0.025MG) PO SCH (05:12)
[2018-06-09 06:00] VITALS: BP 134/63
--- NOTE | 2018-06-09 11:36 | IPNPDOC ---
Subjective Date Seen The patient was seen on 06/09/18. Subjective Chief Complaint/HPI Patient is feeling well this morning. She had no episodes of diarrhea or emesis overnight. She is currently on clear liquid diet and is tolerating that well. Objective Physical Examination General Exam: Positive: Alert, Cooperative, No Acute Distress Eye Exam: Positive: EOMI ENT Exam: Positive: Atraumatic, Mucous membr. moist/pink, Pharynx Normal Chest Exam: Positive: Clear to auscultation, Normal air movement Heart Exam: Positive: Rate Normal, Normal S1, Normal S2 Abdomen Exam: Positive: Normal bowel sounds, Soft; Negative: Tenderness Skin Exam: Positive: Nl turgor and temperature; Negative: Rash Neuro Exam: Positive: Normal Speech Psych Exam: Positive: Mental status NL, Mood NL Assessment /Plan Problems (1) Gastroenteritis Status: Acute Response to Treatment: Improving Problem Text: Patient no longer have diarrhea and vomiting. We will advance her diet and if she continues to not exhibit symptoms over the next 24 hours and is tolerating oral intake adequately she should be fine to go by tomorrow. (2) CKD (chronic kidney disease) stage 5, GFR less than 15 ml/min Status: Chronic Response to Treatment: Stable Problem Text: Patient is on , , Sat. schedule. Will continue this outpatient. (3) Hypothyroidism Status: Chronic Response to Treatment: Stable Problem Text: Stable on current medications. (4) Depression Status: Chronic Response to Treatment: Stable Problem Text: Continue with home meds. (5) Chronic back pain Status: Chronic Response to Treatment: Stable Problem Text: continue with home medications. Plan/VTE VTE Prophylaxis Ordered?: Yes VS, I&O, 24H, Fishbone Vital Signs/I&O Vital Signs Date Time Temp Pulse Resp B/P (MAP) Pulse Ox O2 Delivery O2 Flow Rate FiO2 06/09/18 06:00 98.8 106 18 134/63 (86) 93 06/08/18 14:54 Room Air 06/07/18 22:31 2.0 I&O- Last 24 Hours up to 6 AM 06/09/18 06:00 Intake Total 840 ml Balance 840 ml Laboratory Data Microbiology Microbiology 06/07/18 Blood Culture - Preliminary, Resulted No growth after 24 hours . All specim... 06/07/18 Blood Culture - Preliminary, Resulted No growth after 24 hours . All specim... 06/08/18 Gastrointestinal Tract Panel (PCR) - Final, Complete Norovirus GME ATTESTATION GME ATTESTATION My faculty preceptor for this patient encounter was physically present during the encounter and was fully available. All aspects of the patient interview, examination, medical decision making process, and medical care plan development were reviewed and approved by the faculty preceptor. The faculty preceptor is aware and concurs with the plan as stated in the body of this note and will attest to such by his/her cosignature. Patient seen, agree with resident note. Apears to be improving. IV fluids stopped, as she was tolerating PO. MARICARMEN LOPEZ DO Jun 09, 2018 11:36 BUBBA GOMEZ DO Jun 11, 2018 01:55
--- NOTE | 2018-06-09 12:39 | IPN ---
DATE OF VISIT: 06/08/2018 The patient was discharged yesterday feeling quite well. She went to [employer] for her lunch, went to dialysis, and developed nausea, vomiting and diarrhea. They cut her dialysis short and sent her home. She came to the emergency department and was admitted by Dr. Melvin and spent the night in the emergency department. She has been on some IV fluids. She reports that she is still having frequent loose stools, feels terrible and has some cramping. She feels she still has some chills and sweats. Her current medications include pantoprazole, ondansetron, and on IV saline. She is also getting heparin injections. On examination. her pulse is 100, respirations are 18, blood pressure is 159/93. She is alert. Actually, she looks quite washed out and pale compared to the way she looked yesterday. O2 saturation on room air is 94%. Her lungs are clear. Heart has a regular rhythm without any murmur, click or gallop. Her abdomen is soft and nontender. Bowel sounds are hyperactive. There is no edema. Labs today show that her BUN is 52, creatinine 3.76, calcium 7.4, potassium 4.1, hemoglobin 10.9, and WBC 10,400. Stool GI panel was positive for Norovirus. CT of the abdomen showed some pleural effusion and polycystic kidneys. There was felt to be some consolidation of left mid lung consistent with atelectasis and infiltrate, but this has improved since earlier this month. There was also for a 3.4 cm low-density lesion in the right liver lobe, unchanged. ASSESSMENT: 1. Acute gastroenteritis due to Norovirus. 2. End-stage kidney disease on dialysis. 3. History of congestive heart failure per echo. 4. Anemia of chronic disease. 5. Hypothyroidism. 6. Gastroesophageal reflux. PLAN: The patient will continue on some gentle IV fluids. Will give her some dicyclomine to help calm down her bowels a little bit, but ideally we do not want to slow her bowels completely as I that may prolong the clearance of the virus. She has a vascular procedure scheduled for tomorrow with respect to her AV shunt in her left forearm, I think this needs to be postponed. I am going to back off on her pantoprazole medication.
[2018-06-09] MEDS: ONDANSETRON 4MG/2ML VIAL (J2405) IV PRN (13:52)
[2018-06-09 14:00] VITALS: BP 153/89
[2018-06-09] MEDS: ASPIRIN 81 MG CHEW TABLET PO SCH (20:03)
[2018-06-09] MEDS: GABAPENTIN 300 MG CAP PO SCH (20:04)
[2018-06-09] MEDS: AMITRIPTYLINE 10 MG TAB PO SCH (20:04)
--- NOTE | 2018-06-09 21:40 | ECGEPIP ---
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
[2018-06-09 22:00] VITALS: BP 140/87
[2018-06-10] MEDS: LEVOTHYROXINE 150MCG TABLET (0.15MG) PO SCH (05:06)
[2018-06-10] MEDS: LEVOTHYROXINE 25MCG TABLET (0.025MG) PO SCH (05:06)
[2018-06-10] MEDS: HEPARIN SOD (PORCINE) 5000 UNITS/ML VIAL SC SCH ×3 (05:06→22:02)
[2018-06-10 06:00] VITALS: BP 140/84
[2018-06-10 08:53] LABS: HEMATOCRIT 32.1 % (36.0-47.0); HEMOGLOBIN 10.1 g/dl (12.0-15.5); MEAN CORPUSCULAR HEMOGLOBIN 30.6 pg (27.0-33.0); MEAN CORPUSCULAR HGB CONC 31.5 g/dl (32.0-36.5); MEAN CORPUSCULAR VOLUME 97.3 fl (80.0-96.0); PLATELET COUNT, AUTOMATED 351 10^3/uL (150-450); WHITE BLOOD COUNT 5.4 10^3/uL (4.0-10.0)
--- NOTE | 2018-06-10 08:54 | CR ---
DATE OF CONSULTATION: 06/09/2018 REASON FOR CONSULTATION: End-stage renal disease. HISTORY OF PRESENT ILLNESS: Mrs. Romero is very well known to our nephrology service. She is 77-year-old lady with end-stage renal disease secondary to polycystic kidneys. She has been on maintenance hemodialysis three times a week. She was admitted to [facility] about 3 weeks ago with shortness of breath and constipation. She was found to have bilateral pleural effusion and a large pericardial effusion. She was discharged to home just on June 07 and had a dialysis done as an outpatient. However, she got admitted same day due to vomiting and diarrhea. She has been diagnosed with Norovirus. She is due for dialysis tomorrow and nephrology consultation was requested. The patient is seen this morning. PAST MEDICAL AND SURGICAL HISTORY: Significant for: 1. End-stage renal disease secondary to polycystic kidney disease. 2. Hypertension. 3. Dyslipidemia. 4. Anemia of chronic renal failure. 5. Bilateral pleural effusions and pericardial effusion. 6. Hypothyroidism. 7. History of gastroesophageal reflux disease. MEDICATIONS: Home medications include amitriptyline 30 mg at bedtime, amlodipine 10 mg daily, aspirin 81 mg daily, Auryxia 210 mg three times a day three times a day, [place] 180 mg as needed for allergies, Flonase nasal spray as needed for nasal congestion, gabapentin 300 mg at bedtime, hydralazine 25 mg, levothyroxine 175 mcg daily, omeprazole 40 mg daily and MiraLax as needed. ALLERGIES: She has allergy to codeine, contrast media, iodine and tape. PERSONAL AND SOCIAL HISTORY: The patient is and lives with her . She does not smoke or drink. Family history is significant for polycystic kidney disease and hypertension. Her son also has end-stage renal disease and recently received kidney transplant. REVIEW OF SYSTEMS: She denies any fever or chills. On review of head and neck she has no history of nosebleeds, sore throat or sinus problems. Cardiovascular system negative for dyspnea or chest pain. Respiratory system negative for cough or hemoptysis. GI system is significant for vomiting and diarrhea for 3 days now. system is significant for end-stage renal disease secondary to polycystic kidneys. Musculoskeletal system significant for chronic degenerative arthritis and back pain. Neurological system is significant for peripheral neuropathy and no history of stroke. Psychosocial system negative for depression or anxiety. Endocrine system is significant for hypothyroidism and secondary hyperparathyroidism. She does not have diabetes. Hematological system is significant for anemia of chronic kidney disease. PHYSICAL EXAMINATION: Temperature 98.8 degrees Fahrenheit, heart rate 106 per minute and respiratory rate 18 per minute. Blood pressure 134/63 mmHg and oxygen saturation 93%. Head is atraumatic. There is no oral thrush or ulcers. Pupils equal and reactive to light and sclera is anicteric. Neck is supple and without JVD or thyroid enlargement. Heart: Sounds are tachycardiac and lungs sound clear to auscultation. Abdomen: Soft and nontender and bowel sounds are normal. Extremities have no cyanosis or clubbing. Left arm AV fistula is patent. Neurologically she is awake, alert and oriented times three. LABORATORY DATA: WBC count was 15.9 on admission, hemoglobin 12.1 and hematocrit 39.0. Today WBC count is down to 10.4, hemoglobin 10.9 and hematocrit 35.0. Sodium 139, potassium 4.1, CO2 of 22, BUN 52 and creatinine 3.76. PROBLEMS: 1. End-stage renal disease. The patient was dialyzed on Saturday as an outpatient. We will plan to dialyze her tomorrow here in the hospital. At present her volume status is still reasonably well-compensated and I do not feel that there is any emergent indication for dialysis. I would suggest to not give her too much fluid due to risk of hypervolemia and pleural effusions. As unless she is hemodynamically stable just 50 mL an hour of IV fluid is adequate. Her oral intake is also mostly in the form of liquids. 2. History of congestive heart failure and pleural effusions. The patient was recently discharged after aggressive dialysis and fluid removal. We will consider stopping the IV fluid as soon as her GI symptoms improved. 3. Anemia at present her anemia is stable and does not need any urgent intervention. Thank you for involving me in the care of Mrs. Romero. I will follow her along with you.
[2018-06-10 09:47] LABS: CALCIUM LEVEL 7.4 MG/DL (8.8-10.2); CREATININE FOR GFR 5.72 MG/DL (0.55-1.30); GLOMERULAR FILTRATION RATE 7.7 (>39); POTASSIUM SERUM 3.5 MEQ/L (3.5-5.1)
[2018-06-10] MEDS ORDERED: HEPARIN 1,000 UNITS/ML 10ML VIAL (FOR RADIOLOGY& DIALYSIS ONLY) XX ONE (10:15)
[2018-06-10] MEDS ORDERED: LOPERAMIDE 2 MG CAP PO PRN (10:45)
--- NOTE | 2018-06-10 10:45 | IPNPDOC ---
Subjective Date Seen The patient was seen on 06/10/18. Subjective Chief Complaint/HPI No acute events overnight. Patient still is not tolerating oral intake very well. She does not have an appetite and is complaining that her stomach is sore. She has not had any episodes of vomiting, but did continue to have loose stools yesterday afternoon. Denies any fever/chills, blood in her stool. Objective Physical Examination General Exam: Positive: Alert, Cooperative, No Acute Distress Eye Exam: Positive: EOMI ENT Exam: Positive: Atraumatic, Mucous membr. moist/pink, Pharynx Normal Chest Exam: Positive: Clear to auscultation, Normal air movement Heart Exam: Positive: Rate Normal, Normal S1, Normal S2 Abdomen Exam: Positive: Normal bowel sounds, Soft; Negative: Tenderness Skin Exam: Positive: Nl turgor and temperature; Negative: Rash Neuro Exam: Positive: Normal Speech Psych Exam: Positive: Mental status NL, Mood NL Assessment /Plan Problems (1) Gastroenteritis Status: Acute Response to Treatment: Improving Problem Text: 06/10-patient's continues to have diarrhea although she did not h ave any overnight or so far this morning, but she feels like that is because her bowels are empty. Currently she is complaining of a headache and mild belly pain. We'll give her some Tylenol, Protonix, and Imodium for her loose stools. 06/09-Patient no longer have diarrhea and vomiting. We will advance her diet and if she continues to not exhibit symptoms over the next 24 hours and is tolerating oral intake adequately she should be fine to go by tomorrow. (2) CKD (chronic kidney disease) stage 5, GFR less than 15 ml/min Status: Chronic Response to Treatment: Stable Problem Text: atient had dialysis this a.m. 06/09Patient is on , , Sat. schedule. (3) Hypothyroidism Status: Chronic Response to Treatment: Stable Problem Text: Stable on current medications. (4) Depression Status: Chronic Response to Treatment: Stable Problem Text: Continue with home meds. (5) Chronic back pain Status: Chronic Response to Treatment: Stable Problem Text: continue with home medications. Plan/VTE VTE Prophylaxis Ordered?: Yes VS, I&O, 24H, Fishbone Vital Signs/I&O Vital Signs Date Time Temp Pulse Resp B/P (MAP) Pulse Ox O2 Delivery O2 Flow Rate FiO2 06/10/18 06:00 97.2 111 18 140/84 (102) 96 06/08/18 14:54 Room Air 06/07/18 22:31 2.0 I&O- Last 24 Hours up to 6 AM 06/10/18 05:59 Intake Total 1080 ml Output Total 3 ml Balance 1077 ml Laboratory Data 24H LABS Laboratory Tests 2 06/10/18 08:30: Nucleated Red Blood Cells % (auto) 0.0, Anion Gap 14, Glomerular Filtration Rate 7.7L, Blood Urea Nitrogen 59H, Creatinine 5.72#H, Sodium Level 139, Potassium Level 3.5, Chloride Level 108H, Carbon Dioxide Level 17L, Calcium Level 7.4L CBC/BMP Laboratory Tests 06/10/18 08:30 Red Blood Count 3.30 L, Mean Corpuscular Volume 97.3 H, Mean Corpuscular Hemoglobin 30.6, Mean Corpuscular Hemoglobin Concent 31.5 L, Red Cell Distribution Width 13.2, Calcium Level 7.4 L Microbiology Microbiology 06/07/18 Blood Culture - Preliminary, Resulted No Growth after 48 hours. All Specime... 06/07/18 Blood Culture - Preliminary, Resulted No Growth after 48 hours. All Specime... 06/08/18 Gastrointestinal Tract Panel (PCR) - Final, Complete Norovirus GME ATTESTATION GME ATTESTATION My faculty preceptor for this patient encounter was physically present during the encounter and was fully available. All aspects of the patient interview, examination, medical decision making process, and medical care plan development were reviewed and approved by the faculty preceptor. The faculty preceptor is aw are and concurs with the plan as stated in the body of this note and will attest to such by his/her cosignature. ATTENDING NOTE Patient seen, agree with resident. She has nausea and headache today, which are not uncommon complaints for her at home, usually irmproved with "hemp gummy bears." As she reports no diarrhea today, and received dialysis today, may be a candidate for DC home tomorrow. MARICARMEN LOPEZ DO Jun 10, 2018 10:45 BUBBA GOMEZ DO Jun 11, 2018 01:57
[2018-06-10] MEDS: ACETAMINOPHEN TAB 650MG DOSE (2X325MG) PO PRN (13:33)
[2018-06-10] MEDS: PANTOPRAZOLE 40MG TAB (PROTONIX) PO SCH ×2 (13:37→22:03)
[2018-06-10 14:00] VITALS: BP 120/51
[2018-06-10] MEDS ORDERED: POTASSIUM CHLORIDE 10 MEQ SR TABLET PO ONE (14:00)
--- NOTE | 2018-06-10 14:30 | IPN ---
DATE: 06/10/2018 Mrs. Romero is seen this morning during dialysis. She is still feeling weak and reports abdominal discomfort but diarrhea has slowed down. She tested positive for Norovirus. She denies any nausea or vomiting and did have breakfast this morning. She denies any dyspnea or chest pain. PHYSICAL EXAMINATION: Temperature 97.2 degrees Fahrenheit, heart rate 110 per minute and respiratory rate 18 per minute. Blood pressure 140/84 mmHg and oxygen saturation 96%. Head is atraumatic. Neck is supple and without abnormal JVD or thyroid enlargement. Heart sounds are tachycardiac and irregular in rhythm. Lungs with slightly diminished breath sounds at bases. Abdomen soft and bowel sounds are present. Extremities have no cyanosis or clubbing. Left arm AV fistula is partially thrombosed. She has a hemodialysis catheter on left upper chest. Neurologically she is awake, alert and oriented times three. Today's labs show WBC count 5.4, hemoglobin 10.1 and hematocrit 32.1. Sodium 139, potassium 3.5, CO2 17, BUN 59 and creatinine 5.72. Calcium level is 7.4. PROBLEMS: 1. End-stage renal disease. The patient is being dialyzed today and she is tolerating dialysis well. Her catheter was not working too good so we are going to try to use one needle in her AV fistula and one in her catheter. Dr. Nicolas will need to work on her fistula later on as an outpatient for partially thrombosed AV fistula. 2. Diarrhea. She tested positive for Norovirus and diarrhea is improving. IV fluid has already been stopped which is appropriate in view of her recent history of pleural effusions and congestive heart failure. 3. Hypokalemia. The patient will be given one dose of potassium chloride 20 mEq after dialysis today and her electrolytes will be checked again tomorrow morning. 4. Anemia. Anemia is stable and no urgent intervention is indicated.
[2018-06-10] MEDS: ONDANSETRON 4MG/2ML VIAL (J2405) IV PRN (16:13)
[2018-06-10] MEDS ORDERED: METOCLOPRAMIDE INJ 10MG/2ML VIAL (J2765) IV ONE (18:00)
[2018-06-10] MEDS ORDERED: ANALGESIC BALM CRM 120 GM TOP PRN (18:00)
[2018-06-10] MEDS: LIDOCAINE 5% (LIDODERM) PATCH TD SCH (18:22)
[2018-06-10] MEDS ORDERED: **NOTE PATIENT COMMENT** MISC XX SCH (21:00)
[2018-06-10 22:00] VITALS: BP 142/66
[2018-06-10] MEDS: GABAPENTIN 300 MG CAP PO SCH (22:02)
[2018-06-10] MEDS: ASPIRIN 81 MG CHEW TABLET PO SCH (22:02)
[2018-06-10] MEDS: AMITRIPTYLINE 10 MG TAB PO SCH (22:03)
[2018-06-11] MEDS: ACETAMINOPHEN TAB 650MG DOSE (2X325MG) PO PRN (01:01)
[2018-06-11] MEDS: LEVOTHYROXINE 25MCG TABLET (0.025MG) PO SCH (05:29)
[2018-06-11] MEDS: LEVOTHYROXINE 150MCG TABLET (0.15MG) PO SCH (05:29)
[2018-06-11] MEDS: HEPARIN SOD (PORCINE) 5000 UNITS/ML VIAL SC SCH (05:30)
[2018-06-11 06:00] VITALS: BP 117/67
[2018-06-11 06:44] LABS: HEMATOCRIT 32.5 % (36.0-47.0); HEMOGLOBIN 10.2 g/dl (12.0-15.5); MEAN CORPUSCULAR HEMOGLOBIN 30.1 pg (27.0-33.0); MEAN CORPUSCULAR HGB CONC 31.4 g/dl (32.0-36.5); MEAN CORPUSCULAR VOLUME 95.9 fl (80.0-96.0); PLATELET COUNT, AUTOMATED 296 10^3/uL (150-450); RED BLOOD COUNT 3.39 10^6/uL (4.00-5.40); WHITE BLOOD COUNT 5.8 10^3/uL (4.0-10.0)
[2018-06-11 07:15] LABS: CALCIUM LEVEL 7.5 MG/DL (8.8-10.2); CREATININE FOR GFR 3.65 MG/DL (0.55-1.30); GLOMERULAR FILTRATION RATE 12.9 (>39); POTASSIUM SERUM 3.9 MEQ/L (3.5-5.1)
[2018-06-11] MEDS: LIDOCAINE 5% (LIDODERM) PATCH TD SCH (08:59)
[2018-06-11] MEDS: PANTOPRAZOLE 40MG TAB (PROTONIX) PO SCH (08:59)
--- NOTE | 2018-06-11 12:03 | DS.PDOC ---
Discharge Summary General Date of Admission Jun 09, 2018 at 09:11 Date of Discharge 06/11/18 Primary Care Physician: BUBBA GOMEZ DO Attending Physician: BUBBA GOMEZ DO Specialist/Consultants Involve: PLACIDO CHINO MD @ Discharge Summary PROCEDURES PERFORMED DURING STAY: [None]. ADMITTING DIAGNOSES: 1. Gastroenteritis due to Norovirus 2. ESRD dialysis dependent COMPLICATIONS/CHIEF COMPLAINT: Acute Gastroenteritis. HISTORY OF PRESENT ILLNESS: The patient is a 77-year-old white female with several chronic medical conditions, including end-stage renal disease - on dialysis, presented to the emergency room (ER) for evaluation of nausea, vomiting and diarrhea. Patient had been hospitalized here from 05/21/2018, and she was discharged home the morning of readmission. Per the , she left the hospital in the morning and then they went to [employer] to eat a sandwich, went home, and then in the afternoon she went to dialysis. However, during dialysis she developed severe diarrhea and vomiting as well as abdominal pain, so dialysis was stopped and she was sent to the ER for further evaluation. In the ER, her symptoms resolved gradually. However, she stateed she was not feeling good, so medicine service was called for admission. HOSPITAL COURSE: 1. Gastroenteritis due to Norovirus: Patient was treated with gentle IV fluids. Symptoms resolved throughout the course of her hospitalization. She was treated with Imodium abd Bentyl as needed. Her diet was slowly advanced and her symptoms resolved. She was feeling much better on day of discharge and was asking to go home. 2. CKD (chronic kidney disease) stage 5, GFR less than 15 ml/min on dialysis: Nephrology was consulted. They managed her dialysis during hospitalization. Her normal dialysis days are ., , and Saturday. DISCHARGE MEDICATIONS: Please see below. ALLERGIES: Please see below. PHYSICAL EXAMINATION ON DISCHARGE: VITAL SIGNS: Please see below. GENERAL: AOx3, NAD HEENT: Unremarkable NECK:soft, supple, no JVD CARDIOVASCULAR EXAMINATION: Rate regular, rhythm irregular RESPIRATORY EXAMINATION: CTA ABDOMINAL EXAMINATION: soft, non-tender, nondistended, BS normal in all 4 quad. EXTREMITIES: no edema SKIN: warm, dry, no rash LABORATORY DATA: Please see below. IMAGING: Chest CT without contrast IMPRESSION: 1. The previous right pleural effusion has resolved. 2. There is a moderate left pleural effusion that has mildly increased. 3. There is atelectasis and infiltrate left midlung field and this has decreased since 05/30/2018. 4. Please see the above comments. CT abd and pelvis without contrast IMPRESSION: 1. Moderate left pleural effusion. 2. Postoperative changes in the abdomen. 3. Polycystic kidney disease. PROGNOSIS: Good ACTIVITY: As tolerated DIET: Regular DISCHARGE PLAN: To home DISCHARGE INSTRUCTIONS: 1. F/U with PCP in one week 2. Resume normal dialysis scheduled DISCHARGE CONDITION: Stable Vital Signs/I&Os Vital Signs Date Time Temp Pulse Resp B/P (MAP) Pulse Ox O2 Delivery O2 Flow Rate FiO2 06/11/18 06:00 98.8 102 18 117/67 (84) 95 06/08/18 14:54 Room Air 06/07/18 22:31 2.0 I&O- Last 24 Hours up to 6 AM 06/11/18 06:00 Intake Total 780 ml Output Total 2025 ml Balance -1245 ml Laboratory Data Labs 24H Laboratory Tests 2 06/10/18 08:30: Nucleated Red Blood Cells % (auto) 0.0, Anion Gap 14, Glomerular Filtration Rate 7.7L, Blood Urea Nitrogen 59H, Creatinine 5.72#H, Sodium Level 139, Potassium Level 3.5, Chloride Level 108H, Carbon Dioxide Level 17L, Calcium Level 7.4L 06/10/18 16:41: Bedside Glucose (Misc Panel) 111H 06/10/18 19:56: Bedside Glucose (Misc Panel) 112H 06/11/18 06:27: Nucleated Red Blood Cells % (auto) 0.0, Anion Gap 8, Glomerular Filtration Rate 12.9L, Blood Urea Nitrogen 26#H, Creatinine 3.65H, Sodium Level 141, Potassium Level 3.9, Chloride Level 107, Carbon Dioxide Level 26, Calcium Level 7.5L CBC/BMP Laboratory Tests 06/10/18 08:30 Red Blood Count 3.30 L, Mean Corpuscular Volume 97.3 H, Mean Corpuscular Hemoglobin 30.6, Mean Corpuscular Hemoglobin Concent 31.5 L, Red Cell Distribution Width 13.2, Calcium Level 7.4 L 06/11/18 06:27 Red Blood Count 3.39 L, Mean Corpuscular Volume 95.9, Mean Corpuscular Hemoglobin 30.1, Mean Corpuscular Hemoglobin Concent 31.4 L, Red Cell Distribution Width 13.2, Calcium Level 7.5 L FSBS Laboratory Tests Test 06/10/18 16:41 06/10/18 19:56 Range/Units Bedside Glucose (Misc Panel) 111 112 83-110 MG/DL Microbiology Microbiology 06/07/18 Blood Culture - Preliminary, Resulted No Growth after 72 hours. All specime... 06/07/18 Blood Culture - Preliminary, Resulted No Growth after 72 hours. All specime... 06/08/18 Gastrointestinal Tract Panel (PCR) - Final, Complete Norovirus Discharge Medications Scheduled (Auryxia) 210 Mg Tab, 420 MG PO WM, (Reported) Amitriptyline HCl (Amitriptyline HCl) 10 Mg Tab, 30 MG PO QHS, (Reported) Amlodipine Besylate (Amlodipine Besylate) 10 Mg Tab, 10 MG PO DAILY, (Reported) Aspirin (Aspir-81) 81 Mg Tab, 81 MG PO QHS, (Reported) Gabapentin (Gabapentin) 300 Mg Cap, 300 MG PO QHS, (Reported) Hydralazine HCl (Hydralazine HCl) 25 Mg Tab, 25 MG PO TID, (Reported) Levothyroxine Sodium (Synthroid) 175 Mcg Tab, 175 MCG PO DAILY, (Reported) Omeprazole (Omeprazole) 40 Mg Cap, 40 MG PO DAILY, (Reported) Scheduled PRN Docusate Sodium (Docusate Sodium) 100 Mg Cap, 100 MG PO DAILY PRN for CONSTIPATION, (Reported) Fexofenadine Hydrochloride (Mali Allergy) 180 Mg Tab, 180 MG PO DAILY PRN for ALLERGIES, (Reported) Fluticasone Propionate (Flonase Allergy Relief) 50 Mcg/Act Spr, 1 SPRAY NA DAILY PRN for NASAL CONGESTION, (Reported) Polyethylene Glycol (Miralax) 1 Pow Pow, 17 GM PO DAILY PRN for CONSTIPATION, (Reported) Allergies Coded Allergies: Ryan (Unverified Allergy, Severe, ANAPHYLAXIS, 07/16/17) FISH (Unverified Allergy, Severe, ANAPHYLAXIS, 01/28/17) TAPE (Verified Allergy, Mild, ADHESIVES-RASH AND REDNESS, 01/28/17) Contrast Media (Unverified Allergy, Unknown, PATIENT STATES SHE CAN TOLERATE PO, 01/28/17) FRUIT (Verified Allergy, Unknown, FRUIT WITH SKIN, 01/28/17) Iodine (Unverified Allergy, Unknown, 01/28/17) Codeine (Unverified Adverse Reaction, Unknown, STOMACH CRAMPS, 01/28/17) [facility] Jun 11, 2018 07:56
--- NOTE | 2018-06-11 14:56 | IPN ---
DATE OF VISIT: 06/11/2018 Mrs. Romero is seen this morning on her bedside. She was dialyzed yesterday and reports feeling well. Her diarrhea has resolved. She denies any dyspnea, chest pain, nausea, or vomiting. On physical examination, temperature 98.8 degrees Fahrenheit, heart rate 102 per minute, and respiratory rate 18 per minute. Blood pressure 117/67 mmHg and oxygen saturation 95% on room air. Head: Is atraumatic. Neck is supple and without jugular venous distention (JVD) or thyroid enlargement. Internal jugular vein catheter is present on left upper chest. Heart sounds are tachycardiac. Lungs clear to auscultation. Abdomen: Soft and nontender. Bowel sounds are normal. Extremities have no cyanosis or clubbing. Left arm AV fistula is partially thrombosed. Neurologically, she is awake, alert, and oriented times three. Today's laboratories show WBC count 5.8, hemoglobin 10.2, and hematocrit 32.5. Sodium 141 and potassium 3.9. BUN 26 and creatinine 3.65. PROBLEMS: 1. End-stage renal disease. The patient was dialyzed yesterday, and her next dialysis will be scheduled for tomorrow morning as an outpatient. 2. Anemia. Her anemia is stable at baseline, and no intervention is indicated. 3. Diarrhea. The patient had norovirus causing diarrhea, which has already resolved. No intervention is indicated. 4. Congestive heart failure and pleural and pericardial effusion. Her volume status remains reasonably well-compensated, and she will follow fluid restriction of 1500 mL per day. She will return for next hemodialysis tomorrow. DISPOSITION: From a renal standpoint, the patient can be discharged to home and followup as an outpatient.
== END 2018-06-11 11:58 | disposition home health service (06) | DRG 391 ==
LOC: M ED 20:16 → M ED INP 23:18 → M MS5PR 06-08 15:52 → OBSVTOIN 06-09 09:11
PROVIDERS: ADMIT Hospitalist; ATTEND Family Medicine
PROC: 5A1D70Z Performance of Urinary Filtration, Intermittent, Less than 6 Hours Per Day (ICD-10-PCS; principal; 2018-06-10)
DX: A08.11 Acute gastroenteropathy due to Norwalk agent (principal); N18.6 End stage renal disease; I13.2 Hypertensive heart and chronic kidney disease with heart failure and with stage 5 chronic kidney disease, or end stage renal disease; Q61.3 Polycystic kidney, unspecified; N25.81 Secondary hyperparathyroidism of renal origin; Z99.2 Dependence on renal dialysis; E78.5 Hyperlipidemia, unspecified; E03.9 Hypothyroidism, unspecified; M54.9 Dorsalgia, unspecified; D63.1 Anemia in chronic kidney disease; G62.9 Polyneuropathy, unspecified; I50.9 Heart failure, unspecified; K21.9 Gastro-esophageal reflux disease without esophagitis; Z98.84 Bariatric surgery status; Z87.442 Personal history of urinary calculi; Z90.710 Acquired absence of both cervix and uterus; Z90.49 Acquired absence of other specified parts of digestive tract; Z91.041 Radiographic dye allergy status

== ENCOUNTER → 2018-06-30 | Outpatient (CLI) | payer MEDICARE, OTHER ==
[~2018-06-30] MED LIST changes: -ASPI1TAB PO; +ASPI81TA26 PO; +HYDR-3910 PO; +ISOVUE-300 61% 100ML VIAL (Q9967) As Ordered ONE; +ISOVUE-370 76% 125ML VIAL (Q9967 PER ML) As Ordered ONE; +LIDOCAINE 2% MDV 20 ML VIAL As Ordered ONE; +SENN1TAB41 PO; -SENN8.6T7 PO; -VALS1TAB46 PO; -VALS1TAB47 PO; +VALS1TAB66 PO; +VALS1TAB67 PO
--- NOTE | 2018-06-30 12:58 | ROOPDOC ---
[facility] Report Of Operation Report of Operation DATE OF PROCEDURE: 06/30/2018 PREPROCEDURE DIAGNOSES: End-stage renal disease, functioning left brachiocephalic autogenous arteriovenous fistula. POSTPROCEDURE DIAGNOSES: End-stage renal disease, cushioning left brachiocephalic autogenous arteriovenous fistula. PROCEDURE: Left internal jugular vein tunneled central venous catheter removal. SURGEON: Dr. Jay Nicolas M.D. BANK GUARD: None INDICATION: Patient is 77-year-old female with a left brachiocephalic autogenous arteriovenous fistula which has been used without difficulty. Patient had difficulty using the fistula during her admission to the hospital but has not used the prone catheter was inserted joint her hospitalization since being discharged home. Patient will undergo removal of the left internal jugular vein tunneled central venous catheter. The procedure was explained and described to the patient in detail including drawing of pictures describing the procedure and pertinent anatomy associated with the procedure. Risks, benefits and alternative treatment options were discussed with the patient. Benefits included but were not limited to removal of the catheter with reduction in complications from central venous catheters. Alternative treatment options included but were not limited to no intervention. Risks included but were not limited to infection, bleeding, pneumothorax, hemothorax, possible need for open surgical intervention, adverse or allergic reaction to the local anesthetic, adverse or allergic reaction to the material used for surgical prepping and draping, nerve injury, cerebrovascular accident, myocardial infarction, pulmonary embolus, deep venous thrombosis, poor satisfaction, poor outcome, poor results, loss of limb and loss of life. Risks of not performing the procedure included but were not limited to infection, bleeding, central venous stenosis and/or thrombosis, loss of life and poor outcome. Patient's questions were answered. Patient voices understanding of these risks, benefits and alternative treatment options. Patient voices acceptance of these risks, benefits and alt ernative treatment options and consents to proceed with left internal jugular vein tunneled central venous catheter removal. There were no promises or guarantees made to the patient regarding the procedure or outcome. ANESTHESIA: None ESTIMATED BLOOD LOSS: 5 mL IV FLUIDS: None DRAINS: None CONTRAST: None COMPLICATIONS: None IMPLANTS: None SPECIMENS: None PROCEDURE: Patient was prepped and draped in a standard surgical fashion. A time out was completed by myself and all the team members in the room involved at the initiation of the procedure, confirming the correct patient , procedure and laterality. Manual traction was applied to the catheter which. Release the subcutaneous cuff spontaneously. The catheter was then removed and manual compression applied at the exit site in the left chest and at the left internal jugular vein entry site for hemostasis. Once hemostasis was achieved, dressings were then applied. Patient tolerated the procedure well and was in stable condition at the end of the removal of the tunneled central venous catheter. All instrument, sponge and needle counts were correct at the end of the case. T here were no complications. Dr. Nicolas was present for and directed the entire case. Patient was discharged in stable condition. The procedure and results were discussed with the patient at the end of the case with all of her questions being answered. The procedure and the results were discussed with the patient's family at the end of the case with all of their questions being answered. Jett Nicolas MD Jun 30, 2018 12:58
== END | disposition home or self-care (01) ==
LOC: M IRPRO 09:30
PROVIDERS: ATTEND Surgery Vascular Surgery
DX: Z45.2 Encounter for adjustment and management of vascular access device (principal); N18.6 End stage renal disease; Z99.2 Dependence on renal dialysis

== ENCOUNTER → 2018-07-04 | Outpatient (CLI) | payer MEDICARE, OTHER ==
[~2018-07-04] MED LIST changes: +CYAN100T5 PO; -ISOVUE-300 61% 100ML VIAL (Q9967) As Ordered ONE; -ISOVUE-370 76% 125ML VIAL (Q9967 PER ML) As Ordered ONE; -LIDOCAINE 2% MDV 20 ML VIAL As Ordered ONE; -VITA1TAB22 PO
--- NOTE | 2018-07-04 14:06 | REP ---
Right shoulder: Three views. History: Right shoulder pain. Comparison radiographs November 20, 2017. Findings: There is diffuse osteopenia. The right glenohumeral and acromioclavicular joints are normally aligned. No fracture or subluxation is seen. No rib fracture or other rib lesion. There is a small subcortical cyst again noted in the proximal humerus unchanged. Impression: Diffuse osteopenia. No acute bony abnormality. Electronically Signed by Raphael Fuentes MD 07/04/2018 02:38 P
== END ==
LOC: M ADAMS 11:42
PROVIDERS: ATTEND Family Medicine
DX: M85.88 Other specified disorders of bone density and structure, other site (principal); M25.511 Pain in right shoulder
CPT/HCPCS: 73030; G0463

== ENCOUNTER → 2018-09-24 | Outpatient (CLI) | payer MEDICARE, OTHER ==
--- NOTE | 2018-09-24 11:09 | REP ---
Clinical: Trauma/injury. Technique: AP, lateral, bilateral oblique views of the right foot. Findings: Age-related osteopenia and moderate/advanced arthritic generative changes noted. No obvious acute fracture or dislocation. Impression: Age-related changes. No obvious acute fracture or dislocation. Electronically Signed by Carmine Johnson MD 09/24/2018 11:00 A
== END ==
LOC: M ADAMS 10:28
PROVIDERS: ATTEND Family Medicine
DX: M19.071 Primary osteoarthritis, right ankle and foot (principal); M85.871 Other specified disorders of bone density and structure, right ankle and foot; S99.921A Unspecified injury of right foot, initial encounter; W22.03XA Walked into furniture, initial encounter; Y92.9 Unspecified place or not applicable
CPT/HCPCS: 73630; G0463

== ENCOUNTER → 2018-12-10 | Outpatient (CLI) | payer MEDICARE, OTHER ==
[~2018-12-10] MED LIST changes: -BISO5TAB5 PO; +BISO5TAB9 PO; -FEBU40TA PO; +FEBU40TA4 PO
--- NOTE | 2018-12-10 11:52 | REP ---
KUB: Two views. HISTORY: Kidney calculus. Comparison films are from June 07, 2018 CT scan. FINDINGS: Extensive surgical clips and sutures are seen throughout the left upper quadrant, central abdomen, and pelvis. There is moderate stool in the colon. There is an air distended small bowel loop near the anastomosis. The patient appears to be status post gastric bypass. I do not see any definite urinary tract calculi but there is considerable bowel gas. Electronically Signed by Raphael Fuentes MD 12/10/2018 03:24 P
== END ==
LOC: M SMT 09:17
PROVIDERS: ATTEND Nurse Practitioner Family
DX: R10.32 Left lower quadrant pain (principal); Z98.84 Bariatric surgery status; R14.3 Flatulence

== ENCOUNTER → 2019-01-06 | Outpatient (REF) | payer MEDICARE, OTHER ==
[2019-01-06 14:26] LABS: AMORPHOUS SEDIMENT SMALL (NEGATIVE); APPEARANCE, URINE CLOUDY (CLEAR); BACTERIA, URINE AUTO 2+ (NEGATIVE); BILIRUBIN, URINE AUTO NEGATIVE (NEGATIVE); BLOOD, URINE BLOOD NEGATIVE (NEGATIVE); COLOR, URINE AMBER (YELLOW); GLUCOSE, URINE (UA) AUTO NEGATIVE (NEGATIVE); KETONE, URINE AUTO NEGATIVE (NEGATIVE); LEUKOCYTE ESTERASE, URINE AUTO 3+ (NEGATIVE); MUCUS, URINE SMALL (NEGATIVE); NITRITE, URINE AUTO NEGATIVE (NEGATIVE); PROTEIN, URINE AUTO 2+ mg/dL (NEGATIVE); RBC, URINE AUTO 3 /HPF (0-3); SPECIFIC GRAVITY URINE AUTO 1.011 (1.002-1.035); SQUAMOUS EPITHELIAL CELL UR AU 2 /HPF (0-6); TRANSITIONAL EPITHELIAL AUTO 1 /HPF; UROBILINOGEN, URINE AUTO 0.2 mg/dL (0.0-2.0); WBC, URINE AUTO TNTC /HPF (0-3)
== END ==
LOC: M LAB REF 13:04
PROVIDERS: ATTEND Nurse Practitioner Family
DX: N39.0 Urinary tract infection, site not specified (principal)

== ENCOUNTER → 2019-02-04 | Outpatient (CLI) | payer MEDICARE, OTHER ==
[~2019-02-04] MED LIST changes: -OMEP40CA2 PO; +OMEP40CA97 PO
--- NOTE | 2019-02-04 11:43 | REP ---
Bilateral lower extremity arterial Doppler ultrasound: History: Peripheral vascular disease. Cold feet. Findings: Ankle brachial indices could not be accomplished due to noncompressible vessels bilaterally. Arterial wave forms are predominately biphasic in the lower extremities. Mild plaquing is seen throughout. No high-grade stenosis is seen. The distal SUPPORT SERVICES MANAGER is occluded on the right and the proximal and distal posterior tibial artery segments are occluded on the left. Arterial Doppler velocity chart right lower extremity: Right CF A 45 cm/S Profunda 64 Proximal SFA 72 Mid SFA 92 three Distal SFA 82 Popliteal 53 Proximal AT A 41 Tibioperoneal trunk 34 Proximal SUPPORT SERVICES MANAGER 31 Distal SUPPORT SERVICES MANAGER occluded Distal AT A 78 Arterial Doppler velocity chart left lower extremity: Left CF A 71 cm/S Profunda 49 Proximal SFA 61 Mid SFA 79 Distal SFA 47 Popliteal 44 Proximal AT A 62 Tibioperoneal trunk 45 Proximal SUPPORT SERVICES MANAGER occluded Distal SUPPORT SERVICES MANAGER occluded Distal AT A 96 Electronically Signed by Raphael Fuentes MD 02/04/2019 11:35 A
== END ==
LOC: M RAD 09:02
PROVIDERS: ATTEND Podiatrist Foot & Ankle Surgery
DX: I73.9 Peripheral vascular disease, unspecified (principal)

== ENCOUNTER → 2019-04-16 | Outpatient (REF) | payer MEDICARE, OTHER ==
[~2019-04-16] MED LIST changes: +BISO5TAB14 PO; -BISO5TAB9 PO; -BUPR300T34 PO; +BUPR300T92 PO; -SIMV40TA2 PO; +SIMV40TA20 PO; -SUCR10SS PO; +SUCR1ORA PO; +SUCR1ORA2 PO; -SUCR1SUS PO; -VALS160T PO; +VALS160T2 PO
[2019-04-16 16:17] LABS: APPEARANCE, URINE CLOUDY (CLEAR); BACTERIA, URINE AUTO 2+ (NEGATIVE); BILIRUBIN, URINE AUTO NEGATIVE (NEGATIVE); BLOOD, URINE BLOOD NEGATIVE (NEGATIVE); COLOR, URINE AMBER (YELLOW); GLUCOSE, URINE (UA) AUTO NEGATIVE (NEGATIVE); KETONE, URINE AUTO NEGATIVE (NEGATIVE); LEUKOCYTE ESTERASE, URINE AUTO 2+ (NEGATIVE); MUCUS, URINE SMALL (NEGATIVE); NITRITE, URINE AUTO NEGATIVE (NEGATIVE); PROTEIN, URINE AUTO 3+ mg/dL (NEGATIVE); RBC, URINE AUTO 4 /HPF (0-3); RENAL EPITHELIAL CELLS 1 /HPF; SPECIFIC GRAVITY URINE AUTO 1.014 (1.002-1.035); SQUAMOUS EPITHELIAL CELL UR AU 51 /HPF (0-6); TRANSITIONAL EPITHELIAL AUTO <1 /HPF; UROBILINOGEN, URINE AUTO 0.2 mg/dL (0.0-2.0); WBC, URINE AUTO 39 /HPF (0-3)
[2019-04-16 16:21] LABS: ALBUMIN 3.3 GM/DL (3.2-5.2); BILIRUBIN,TOTAL 0.3 MG/DL (0.2-1.0); CALCIUM LEVEL 8.3 MG/DL (8.8-10.2); CREATININE FOR GFR 2.46 MG/DL (0.55-1.30); GLOMERULAR FILTRATION RATE 20.3 (>39); POTASSIUM SERUM 4.3 MEQ/L (3.5-5.1); TOTAL PROTEIN 6.8 GM/DL (6.4-8.2)
== END ==
LOC: M SFHCADAM 14:51
PROVIDERS: ATTEND Family Medicine
DX: R53.83 Other fatigue (principal); N39.0 Urinary tract infection, site not specified
CPT/HCPCS: 80053; 81001; G0463

== ENCOUNTER → 2019-05-13 | Outpatient (CLI) | payer MEDICARE, OTHER ==
--- NOTE | 2019-05-13 10:06 | REP ---
MRCP exam: MRI abdomen without contrast: History: Common bile duct dilation. Comparison CT study June 07, 2018. Technique: Axial and coronal T2-weighted scans were obtained. MRCP exam is acquired and maximum intensity projection images are generated and reviewed. Findings: The kidneys are enlarged and demonstrate innumerable renal cysts bilaterally consistent with polycystic kidney disease. There are cysts scattered throughout the liver as well. There is evidence of a small right pleural effusion. No hepatic mass lesion is observed. No splenic lesion is observed. The main pancreatic duct is borderline in caliber measuring 3 mm in diameter. No pancreatic mass lesion is seen. The common bile duct is somewhat prominent measuring 13 mm. The gallbladder is not visualized consistent with post cholecystectomy. The intrahepatic bile ducts are mildly prominent. No intraluminal filling defect is seen in the common bile duct. Exam is otherwise unremarkable. The common bile duct appears to have been similar in size on previous CT although direct comparison is difficult because of prior CT studies are without IV contrast. A common bile duct measurement of 9 mm was reported on ultrasound from March of 2016. A portion of cystic duct is visible. Study is otherwise unremarkable. Impression: 1. Findings consistent with polycystic kidney disease. Multiple hepatic cysts are also noted. 2. Gallbladder is not seen consistent with surgical absence. 3. Mild to moderate dilation of the extrahepatic and mild dilation of the intrahepatic biliary system. No evidence of choledocholithiasis or mass lesion. CBD 13 mm. Electronically Signed by Raphael Fuentes MD 05/13/2019 04:06 P
== END ==
LOC: M RAD 07:23
PROVIDERS: ATTEND Family Medicine
DX: N28.1 Cyst of kidney, acquired (principal); K83.8 Other specified diseases of biliary tract

== ENCOUNTER → 2019-05-15 | Outpatient (REF) | payer MEDICARE, OTHER ==
[2019-05-15 17:08] LABS: BASO % 0.4 % (0.0-1.0); EOS # 0.2 10^3/uL (0.0-0.5); EOS % 2.9 % (0.0-3.0); HEMATOCRIT 36.8 % (36.0-47.0); LYMPH # 0.9 10^3/uL (1.5-5.0); MEAN CORPUSCULAR HGB CONC 32.6 g/dl (32.0-36.5); MEAN CORPUSCULAR VOLUME 98.1 fl (80.0-96.0); MONO # 0.6 10^3/uL (0.0-0.8); MONO % 7.5 % (0.0-5.0); NEUTROPHILS # 6.4 10^3/uL (1.5-8.5); PLATELET COUNT, AUTOMATED 257 10^3/uL (150-450); RED BLOOD COUNT 3.75 10^6/uL (4.00-5.40); WHITE BLOOD COUNT 8.2 10^3/uL (4.0-10.0)
[2019-05-15 17:13] LABS: APPEARANCE, URINE HAZY (CLEAR); BACTERIA, URINE AUTO 2+ (NEGATIVE); BILIRUBIN, URINE AUTO NEGATIVE (NEGATIVE); BLOOD, URINE BLOOD NEGATIVE (NEGATIVE); COLOR, URINE YELLOW (YELLOW); GLUCOSE, URINE (UA) AUTO NEGATIVE (NEGATIVE); KETONE, URINE AUTO NEGATIVE (NEGATIVE); LEUKOCYTE ESTERASE, URINE AUTO 1+ (NEGATIVE); MUCUS, URINE SMALL (NEGATIVE); NITRITE, URINE AUTO NEGATIVE (NEGATIVE); PROTEIN, URINE AUTO 2+ mg/dL (NEGATIVE); RBC, URINE AUTO 2 /HPF (0-3); SPECIFIC GRAVITY URINE AUTO 1.015 (1.002-1.035); SQUAMOUS EPITHELIAL CELL UR AU 10 /HPF (0-6); UROBILINOGEN, URINE AUTO 0.2 mg/dL (0.0-2.0); WBC, URINE AUTO 15 /HPF (0-3)
== END ==
LOC: M SFHCADAM 14:47
PROVIDERS: ATTEND Family Medicine
DX: K83.8 Other specified diseases of biliary tract (principal); N39.0 Urinary tract infection, site not specified; K76.9 Liver disease, unspecified; R10.11 Right upper quadrant pain; Z87.440 Personal history of urinary (tract) infections
CPT/HCPCS: 81001; 85025; 87086; G0463

== ENCOUNTER → 2019-07-14 | Outpatient (CLI) | payer MEDICARE, OTHER ==
--- NOTE | 2019-07-14 16:01 | REP ---
RIGHT KNEE, SIX VIEWS: Six views of the right knee performed. No fracture or dislocation is seen. There is mild narrowing of the medial and lateral joint spaces with mild subchondral sclerosis and spurring. There is moderate narrowing of the patellofemoral joint with subchondral sclerosis and spurring of the patella diffusely. IMPRESSION: Degenerative changes. No evidence of fracture or dislocation. Electronically Signed by Juliano Figueroa MD 07/15/2019 12:01 P
== END ==
LOC: M ADAMS 14:50
PROVIDERS: ATTEND Physician Assistant
DX: M25.561 Pain in right knee (principal)
CPT/HCPCS: 73564; G0463

== ENCOUNTER → 2019-07-16 | Outpatient (REF) | payer MEDICARE, OTHER ==
[2019-07-16 17:03] LABS: APPEARANCE, URINE TURBID (CLEAR); BACTERIA, URINE AUTO 3+ (NEGATIVE); BILIRUBIN, URINE AUTO NEGATIVE (NEGATIVE); BLOOD, URINE BLOOD NEGATIVE (NEGATIVE); COLOR, URINE AMBER (YELLOW); GLUCOSE, URINE (UA) AUTO NEGATIVE (NEGATIVE); KETONE, URINE AUTO TRACE mg/dL (NEGATIVE); LEUKOCYTE ESTERASE, URINE AUTO 3+ (NEGATIVE); NITRITE, URINE AUTO NEGATIVE (NEGATIVE); PROTEIN, URINE AUTO 2+ mg/dL (NEGATIVE); RBC, URINE AUTO 0 /HPF (0-3); SPECIFIC GRAVITY URINE AUTO 1.013 (1.002-1.035); SQUAMOUS EPITHELIAL CELL UR AU 33 /HPF (0-6); TRANSITIONAL EPITHELIAL AUTO 3 /HPF; UROBILINOGEN, URINE AUTO 0.2 mg/dL (0.0-2.0); WBC, URINE AUTO TNTC /HPF (0-3)
== END ==
LOC: M SFHCADAM 07-14 14:47
PROVIDERS: ATTEND Physician Assistant
DX: R30.0 Dysuria (principal)

== ENCOUNTER → 2019-07-29 | Outpatient (REF) | payer MEDICARE, OTHER ==
[~2019-07-29] MED LIST changes: +AMIT-257 PO; -AMLO10TA5 PO; +AMLO1TAB24; +AMLO1TAB24 PO; +AMLO1TAB25 PO; -AMLO5TAB6 PO; +ASPI81CH8 PO; -ASPI81TA85 PO; +ASPI81TA86 PO; +ATOR1TAB21 PO; -BUPR150T3 PO; +BUPR150T4 PO; +CARD120C3 PO; +CARD180C4 PO; +CARD240C5 PO; +CO Q200C10 PO; +CYAN100T4 PO; -CYAN100T5 PO; +D31000TA2 PO; +DILT180C70 PO; +DILT240C83 PO; +GABA-282 PO; -GABA-843 PO; +HYDR-3911; +LEVO250T12 PO; +LEVO500T3 PO; +LIDO2.5C15 TOP; +METO1TAB7 PO; +MIRA1POW3 PO; +PANT40TA29 PO; -PANT40TA3 PO; +PRIL20TA2 PO; +RA M10TA PO; +XARE20TA PO; +ZINC220T6 PO
[2019-07-29 18:48] LABS: FREE T4 1.15 NG/DL (0.76-1.46); THYROID STIMULATING HORMONE 3.94 uIU/ML (0.358-3.740)
== END ==
LOC: M SFHCADAM 12:30
PROVIDERS: ATTEND Family Medicine
DX: E03.9 Hypothyroidism, unspecified (principal)
CPT/HCPCS: 84439; 84443; G0463

== ENCOUNTER → 2019-09-21 | Outpatient (CLI) | payer MEDICARE, OTHER ==
[~2019-09-21] MED LIST changes: -AMIT-257 PO; +AMLO10TA5 PO; -AMLO1TAB24; -AMLO1TAB24 PO; -AMLO1TAB25 PO; +AMLO5TAB6 PO; -ASPI81CH8 PO; +ASPI81TA85 PO; -ASPI81TA86 PO; -ATOR1TAB21 PO; +BUPR150T3 PO; -BUPR150T4 PO; -CARD120C3 PO; -CARD180C4 PO; -CARD240C5 PO; -CO Q200C10 PO; -CYAN100T4 PO; +CYAN100T5 PO; -D31000TA2 PO; -DILT180C70 PO; -DILT240C83 PO; -GABA-282 PO; +GABA-843 PO; -HYDR-3911; -LEVO250T12 PO; -LEVO500T3 PO; -LIDO2.5C15 TOP; -METO1TAB7 PO; -MIRA1POW3 PO; -PANT40TA29 PO; +PANT40TA3 PO; -PRIL20TA2 PO; -RA M10TA PO; -XARE20TA PO; -ZINC220T6 PO
--- NOTE | 2019-09-22 11:12 | REP ---
RADIONUCLIDE TAGGED RED BLOOD CELL LIVER SPLEEN SCAN: Including SPECT imaging. HISTORY: Hepatic lesion. Hemangioma workup. Polycystic kidney disease. Comparison study is MRI exam from May 13, 2019. Comparison CT study June 07, 2018. Comparison abdominal CT studies are also reviewed dating back to November 06, 2016. TECHNIQUE: 26.3 mCi technetium 99m tagged red blood cells is injected and flow and blood pool phase images are acquired. A SPECT acquisition is acquired. SCINTIGRAPHIC FINDINGS: The blood pool study shows no vascular abnormality. SPECT and delayed scan images show no evidence of focal hepatic uptake to account for the 3.5 cm low density lesion seen on CT study. This is not consistent with hemangioma. This is not seen on SPECT imaging. No focal hepatic area of increased uptake is seen. IMPRESSION: Negative radionuclide red blood cell hepatic scan with SPECT. The 3.5 cm right posterior lobe hepatic lesion is stable from prior CT study November 06, 2016 and may be a cyst. It does not appear to be consistent with hemangioma. Electronically Signed by Raphael Fuentes MD 09/22/2019 11:17 A
== END ==
LOC: M RAD 09:18
PROVIDERS: ATTEND Family Medicine
DX: K76.89 Other specified diseases of liver (principal)
CPT/HCPCS: 78803; A9560

== ENCOUNTER → 2019-10-13 | Outpatient (REF) | payer MEDICARE, OTHER ==
[~2019-10-13] MED LIST changes: +AMIT-257 PO; -AMLO10TA5 PO; +AMLO1TAB24 PO; +AMLO1TAB25 PO; -AMLO5TAB6 PO; -ASPI81TA85 PO; +ASPI81TA86 PO; +CARD180C4 PO; +CARD240C5 PO; +CYAN100T4 PO; -CYAN100T5 PO; +DILT180C70 PO; +LEVO500T3 PO; +LIDO2.5C15 TOP; +METO1TAB7 PO; +MIRA1POW3 PO; +PANT40TA29 PO; -PANT40TA3 PO; +PRIL20TA2 PO; +XARE20TA PO
== END ==
LOC: M LAB REF 16:57
PROVIDERS: ATTEND Nurse Practitioner Family
DX: N39.0 Urinary tract infection, site not specified (principal)

== ENCOUNTER → 2020-01-01 | Outpatient (CLI) | payer MEDICARE, OTHER | LOC: M LABSMTC 10:06 | PROVIDERS: ATTEND Anesthesiology | DX: Z01.812 Encounter for preprocedural laboratory examination (principal); Z20.828 Contact with and (suspected) exposure to other viral communicable diseases | CPT/HCPCS: C9803; U0003 ==

== ENCOUNTER → 2020-01-03 | Outpatient (REF) | payer MEDICARE, OTHER | LOC: M LAB REF 10:30 | PROVIDERS: ATTEND Physician Assistant | DX: N39.0 Urinary tract infection, site not specified (principal) ==

== ENCOUNTER 2020-01-06 08:21 | Day surgery (SDC) | payer MEDICARE, OTHER ==
[~2020-01-06] VITALS: Ht 170.2 cm; Wt 100.7 kg
[~2020-01-06 08:21] MED LIST changes: -AMIT-257 PO; -CARD180C4 PO; -CARD240C5 PO; -DILT180C70 PO; -LEVO500T3 PO; -LIDO2.5C15 TOP; +LIDOCAINE 2% 100MG/5ML SDV (FOR ANES.) As Ordered ONE; -METO1TAB7 PO; -MIRA1POW3 PO; -PRIL20TA2 PO; -XARE20TA PO; +propofoL 200 MG/20 ML VIAL As Ordered ONE
[2020-01-06] MEDS: NS 1,000 ML IV SCH ×2 (09:12→09:24)
[2020-01-06] MEDS ORDERED: atenoloL 50 MG TAB PO ONE (09:15)
[2020-01-06 09:23] VITALS: BP 180/80
--- NOTE | 2020-01-06 10:58 | ROOR ---
Patient Name: Ainsley Romero Procedure Date: 01/06/2020 9:53 AM Date of : 1940 Age: 79 Room: [facility] Gender: Female Note Status: Finalized Procedure: Colonoscopy Indications: Hematochezia, Exclusion of ulcerative colitis, Constipation, Suspected fecal impaction Providers: Dashawn BURGER MD Referring MD: Mechelle HOLDER DO Requesting Provider: Mechelle HOLDER DO Medicines: Monitored Anesthesia Care Complications: No immediate complications. Procedure: Pre-Anesthesia Assessment: - The heart rate, respiratory rate, oxygen saturations, blood pressure, adequacy of pulmonary ventilation, and response to care were monitored throughout the procedure. The Colonoscope was introduced through the anus and advanced to 9 cm into the ileum. The colonoscopy was somewhat difficult due to unsatisfactory bowel prep. Successful completion of the procedure was aided by lavage. The patient tolerated the procedure well. The quality of the bowel preparation was fair. Findings: The perianal and digital rectal examinations were normal. Three sessile polyps were found in the ascending colon. The polyps were 4 to 5 mm in size. These polyps were removed with a cold snare. Resection and retrieval were complete. A 20 mm polyp was found in the splenic flexure. The polyp was flat. The polyp was removed with a piecemeal technique using a hot snare. Resection and retrieval were complete. To prevent bleeding after the polypectomy, two hemostatic clips were successfully placed. Area just distal (1-2 cm) to the polypectomy site was successfully injected with 3 mL Spot (carbon black) for tattooing. A 6 mm polyp was found in the sigmoid colon. The polyp was sessile. The polyp was removed with a cold snare. Resection and retrieval were complete. A single (solitary) ulcer was found in the mid rectum. No bleeding was present. No stigmata of recent bleeding were seen. Biopsies were taken with a cold forceps for histology. Internal hemorrhoids were found during retroflexion. The hemorrhoids were medium-sized. Impression: - Preparation of the colon was fair after extensive lavage. - Three 4 to 5 mm polyps in the ascending colon, removed with a cold snare. Resected and retrieved. - One 20 mm polyp at the splenic flexure, removed piecemeal using a hot snare. Resected and retrieved. Clips were placed. Injected. - One 6 mm polyp in the sigmoid colon, removed with a cold snare. Resected and retrieved. - A single erythematous mucosal fold/patch 10 mm in the mid/distal rectum-likely related to mucosal prolapse or fecal impaction. Biopsied. - Moderate Internal hemorrhoids. Recommendation: - Miralax 1 capful (17 grams) in 8 ounces of water BID indefinitely. - Repeat colonoscopy in 3 years for surveillance. Dashawn Burger MD Dashawn BURGER MD 01/06/2020 10:58:06 AM Electronically signed by Dashawn BURGER MD Number of Addenda: 0 Note Initiated On: 01/06/2020 9:53 AM Estimated Blood Loss: Estimated blood loss: none.
[2020-01-06 11:20] VITALS: BP 184/102
== END 2020-01-06 11:51 | disposition home or self-care (01) ==
LOC: M OPP 08:21
PROVIDERS: ATTEND Internal Medicine Gastroenterology
DX: D12.2 Benign neoplasm of ascending colon (principal); D12.3 Benign neoplasm of transverse colon; D12.5 Benign neoplasm of sigmoid colon; K64.8 Other hemorrhoids; K62.6 Ulcer of anus and rectum; K92.1 Melena; K59.00 Constipation, unspecified; G47.30 Sleep apnea, unspecified; I48.91 Unspecified atrial fibrillation; E03.9 Hypothyroidism, unspecified; Z79.899 Other long term (current) drug therapy; Z88.5 Allergy status to narcotic agent; Z88.8 Allergy status to other drugs, medicaments and biological substances; Z91.048 Other nonmedicinal substance allergy status; Z91.018 Allergy to other foods; Z91.041 Radiographic dye allergy status; Z91.013 Allergy to seafood

== ENCOUNTER 2020-01-14 23:29 | Observation (INO) | payer MEDICARE, OTHER ==
[~2020-01-14] VITALS: Ht 167.6 cm; Wt 97.5 kg
[~2020-01-14 23:29] MED LIST changes: -LIDOCAINE 2% 100MG/5ML SDV (FOR ANES.) As Ordered ONE; -propofoL 200 MG/20 ML VIAL As Ordered ONE
[2020-01-15] VITALS (20 sets, daily range): BP systolic 104–178; BP diastolic 55–93
[2020-01-15] MEDS ORDERED: IPRATROPIUM 0.5MG/ALBUTEROL 2.5MG INH SOL UD 3ML (DUONEB) NEB ONE (00:15)
[2020-01-15 00:36] LABS: BASO % 0.1 % (0.0-1.0); EOS # 0.1 10^3/uL (0.0-0.5); EOS % 0.4 % (0.0-3.0); HEMOGLOBIN 11.5 g/dl (12.0-15.5); LYMPH # 0.2 10^3/uL (1.5-5.0); MEAN CORPUSCULAR HEMOGLOBIN 31.3 pg (27.0-33.0); MEAN CORPUSCULAR HGB CONC 30.3 g/dl (32.0-36.5); MEAN CORPUSCULAR VOLUME 103.5 fl (80.0-96.0); MONO # 0.5 10^3/uL (0.0-0.8); MONO % 3.7 % (0.0-5.0); NEUTROPHILS # 13.8 10^3/uL (1.5-8.5); NEUTROPHILS % 94.5 % (36.0-66.0); PLATELET COUNT, AUTOMATED 242 10^3/uL (150-450); RED BLOOD COUNT 3.67 10^6/uL (4.00-5.40); WHITE BLOOD COUNT 14.6 10^3/uL (4.0-10.0)
[2020-01-15] MEDS: NITROGLYCERIN 0.4 MG SUBL TABLET SL PRN (00:41)
--- NOTE | 2020-01-15 00:44 | REPVR ---
PROCEDURE INFORMATION: Exam: XR Chest, 1 View Exam date and time: 01/15/2020 12:24 AM Age: 79 years old Clinical indication: Other: Chest pain TECHNIQUE: Imaging protocol: XR of the chest Views: 1 view. COMPARISON: CT Chest without contrast 06/07/2018 8:24 PM FINDINGS: Lungs: Incomplete visualization of the left base. Coarse interstitium with minimal bilateral perihilar infiltrates. Question of left infrahilar atelectasis and mild left base subsegmental atelectasis. Pleural space: Left pleural effusion is not excluded. Slight fluid accentuation of the right minor fissure. Heart/Mediastinum: Borderline cardiomegaly. Diaphragm: Elevation of the right hemidiaphragm. Bones/joints: Unremarkable. IMPRESSION: 1. Incomplete visualization of the left base. 2. Borderline cardiomegaly. 3. Coarse interstitium with minimal bilateral perihilar infiltrates. There is slight fluid accentuation of the right minor fissure and a left pleural effusion is not excluded. Findings may reflect borderline or early congestive failure or fluid overload. 4. Question of mild left base atelectasis or scar, particularly in the infrahilar region. Electronically signed by: Gerson Mcmillan On 01/15/2020 00:44:20 AM
[2020-01-15 01:22] LABS: BLOOD UREA NITROGEN 31 MG/DL (7-18); CALCIUM LEVEL 8.7 MG/DL (8.8-10.2); CARBON DIOXIDE LEVEL 32 MEQ/L (21-32); CHLORIDE LEVEL 103 MEQ/L (98-107); CK-MB VALUE MASS < 1.0 NG/ML (<3.6); CPK CREATINE PHOSPHOKINASE 25 U/L (26-192); GLOMERULAR FILTRATION RATE 14.4 (>39); GLUCOSE, FASTING 125 MG/DL (70-100); NT-PRO BNP 41613 PG/ML (<450); POTASSIUM SERUM 4.4 MEQ/L (3.5-5.1); SODIUM LEVEL 141 MEQ/L (136-145); TROPONIN I < 0.02 NG/ML (< 0.10)
[2020-01-15] MEDS ORDERED: HEPARIN SOD (PORCINE) 5000UNITS/ML 1ML VIAL/SYRINGE SC SCH (03:45)
--- NOTE | 2020-01-15 04:04 | HPEPDOC ---
General Date of Admission 01/15/20 Date of Service: Jan 15, 2020 Chief Complaint The patient is a 79-year-old female admitted with a reason for visit of Chest Pain. Source: Patient Exam Limitations: No limitations Timing/Duration: 24 hours Severity: Moderate Associated Symptoms: Shortness of breath History of Present Illness The patient is a 77-year-old white female with history of end-stage renal disease on dialysis , CHF presented to the hospital with shortness of breath. Patient developed chest pain this morning during dialysis, dialysis was stopped. Patient has been having chest discomfort with increased shortness of breath through day. Emergency room patient was found to have BNP 41,000, atrial fibrillation with rapid ventricular rate, and systolic blood pressure over 190. She denied any fever or chills. Chest x-ray showed Borderline cardiomegaly. Coarse interstitium with minimal bilateral perihilar infiltrates. There is slight fluid accentuation of the right minor fissure and a left pleural effusion is not excluded. Findings may reflect borderline or early congestive failure or fluid overload Home Medications Scheduled Amitriptyline HCl (Amitriptyline HCl) 10 Mg Tab, 30 MG PO QHS, (Reported) Amlodipine Besylate (Amlodipine Besylate) 10 Mg Tab, 10 MG PO DAILY, (Reported) Aspirin (Aspir 81) 81 Mg Tab, 81 MG PO QHS, (Reported) Ferric Citrate (Auryxia) 210 Mg Tab, 420 MG PO WM, (Reported) Gabapentin (Gabapentin) 300 Mg Cap, 300 MG PO QHS, (Reported) Hydralazine HCl (Hydralazine HCl) 25 Mg Tab, 25 MG PO TID, (Reported) Levothyroxine Sodium (Synthroid) 175 Mcg Tab, 175 MCG PO DAILY, (Reported) Omeprazole (Omeprazole) 40 Mg Cap, 40 MG PO DAILY, (Reported) Scheduled PRN Docusate Sodium (Docusate Sodium) 100 Mg Cap, 100 MG PO DAILY PRN for CONS TIPATION, (Reported) Fexofenadine HCl (Mali Allergy) 180 Mg Tab, 180 MG PO DAILY PRN for ALLERGIES, (Reported) Fluticasone Propionate (Flonase Allergy Relief) 50 Mcg/Act Spr, 1 SPRAY NA DAILY PRN for NASAL CONGESTION, (Reported) Polyethylene Glycol (Miralax) 1 Pow Pow, 17 GM PO DAILY PRN for CONSTIPATION, (Reported) Allergies Coded Allergies: Ryan (Unverified Allergy, Severe, ANAPHYLAXIS, 07/16/17) FISH (Unverified Allergy, Severe, ANAPHYLAXIS, 01/28/17) TAPE (Verified Allergy, Mild, ADHESIVES-RASH AND REDNESS, 01/28/17) Contrast Media (Unverified Allergy, Unknown, PATIENT STATES SHE CAN TOLERATE PO, 01/28/17) FRUIT (Verified Allergy, Unknown, FRUIT WITH SKIN, 01/28/17) codeine (Verified Allergy, Unknown, 12/30/19) iodine (Verified Allergy, Unknown, 12/30/19) Past Medical History Medical History 1. Acute gastroenteritis. 2. End-stage renal disease, on hemodialysis. 3. Hypertension. 4. Dyslipidemia. 5. Polycystic kidney disease. 6. Hypothyroidism. 7. Chronic anemia. 8. Acid reflux. Surgical History Status post gastric bypass surgery back to 1977. Bilateral kidney stone, removed. Bilateral breast benign nodule removed. Hysterectomy, cholecystectomy and appendectomy. Family History I personally reviewed family history and found NOT PERTINENT Social History * Smoker: Denies Alcohol: Denies Drugs: denies A-FIB/CHADSVASC A-FIB History Current/History of A-Fib/PAF?: Yes Current PO Anticoag Therapy: No Review of Systems Constitutional: Denies: Chills, Fever Eyes: Denies: Pain ENT: Denies: Head Aches Skin: Denies: Rash Pulmonary: Reports: Dyspnea Cardiovascular: Reports: Paroxysmal Noc. Dyspnea; Denies: Chest Pain, Palpitations Gastrointestinal: Denies: Nausea, Vomiting Genitourinary: Denies: Hematuria Hematologic: Denies: Bruising Endocrine: Denies: Polydipsia Musculoskeletal: Denies: Neck Pain, Back Pain Neurological: Denies: Weakness Psych: Reports: Mood Normal Physical Examination General Exam: Positive: Alert, Cooperative Eye Exam: Positive: PERRLA ENT Exam: Positive: Atraumatic Neck Exam: Positive: Supple, JVD Chest Exam: Positive: Diminished Heart Exam: Positive: Irregular Rhythm Telemetry: Positive: Atrial fibrillation Abdomen Exam: Positive: Normal bowel sounds Extremity Exam: Positive: Edema Skin Exam: Positive: Nl turgor and temperature Neuro Exam: Positive: Strength at 5/5 X4 ext, Cranial Nerves 3-12 NL Psych Exam: Positive: Mental status NL Vital Signs Vital Signs Date Time Temp Pulse Resp B/P (MAP) Pulse Ox O2 Delivery O2 Flow Rate FiO2 01/15/20 02:51 123 01/15/20 02:45 18 172/93 (119) 97 Nasal Cannula 3.0 01/15/20 00:05 98.8 Laboratory Data Labs 24H Laboratory Tests 2 01/15/20 00:25: Immature Granulocyte % (Auto) 0.3, Neutrophils (%) (Auto) 94.5H, Lymphocytes (%) (Auto) 1.0L, Monocytes (%) (Auto) 3.7, Eosinophils (%) (Auto) 0.4, Basophils (%) (Auto) 0.1, Neutrophils # (Auto) 13.8H, Lymphocytes # (Auto) 0.2L, Monocytes # (Auto) 0.5, Eosinophils # (Auto) 0.1, Basophils # (Auto) 0.0, Nucleated Red Blood Cells % (auto) 0.0, Anion Gap 6L, Glomerular Filtration Rate 14.4L, Calcium Level 8.7L, Total Creatine Kinase 25L, Creatine Kinase MB < 1.0, Creatine Kinase MB Relative Index 4.00, Troponin I < 0.02, JI-Ngh-D-Type Natriuretic Peptide [id number] CBC/BMP Laboratory Tests 01/15/20 00:25 Assessment/Plan The patient is a 77-year-old white female with history of end-stage renal disease on dialysis , CHF presented to the hospital with shortness of breath. Patient developed chest pain this morning during dialysis, dialysis was stopped. Patient has been having chest discomfort with increased shortness of breath through day. Emergency room patient was found to have BNP 41,000, atrial fibrillation with rapid ventricular rate, and systolic blood pressure over 190. She denied any fever or chills. Chest x-ray showed Borderline cardiomegaly. Coarse interstitium with minimal bilateral perihilar infiltrates. There is slight fluid accentuation of the right minor fissure and a left pleural ef fusion is not excluded. Findings may reflect borderline or early congestive failure or fluid overload Problems (1) CHF (congestive heart failure) Status: Acute Problem Text: Secondary to missed dialysis and volume overload I's and O's Dialysis in the morning Appreciate/agree with commercial plumber consult (2) Atrial fibrillation with rapid ventricular response Status: Acute Problem Text: Lopressor IV when necessary Start anticoagulation with Xarelto (3) Chest pain Status: Acute Problem Text: Most likely secondary to acute CHF EKG negative for acute ischemic changes Troponin negative Telemetry (4) HTN (hypertension) Status: Chronic Problem Text: Hydralazine IV with parameters Continue home cardioprotective medications (5) ESRD (end stage renal disease) on dialysis Status: Chronic Problem Text: Dialysis in the morning Lead Bi Developer in follows her Plan / VTE VTE Prophylaxis Ordered?: Yes BENIGNO DAN DO Jan 15, 2020 04:04
[2020-01-15] MEDS ORDERED: hydrALAZINE 20MG/ML 1ML VIAL (J0360 PER 20MG) IV STA (04:10)
[2020-01-15] MEDS ORDERED: MACR100C43 PO (04:29)
[2020-01-15] MEDS ORDERED: AMIT-257 PO (04:29)
[2020-01-15] MEDS ORDERED: LIDO2.5C15 TOP (04:29)
[2020-01-15] MEDS ORDERED: METO1TAB7 PO (04:29)
[2020-01-15] MEDS ORDERED: MIRA1POW3 PO (04:29)
[2020-01-15] MEDS ORDERED: HYDR-3911 PO (04:30)
[2020-01-15] MEDS: METOPROLOL 5 MG/5 ML VIAL IV PRN ×2 (05:46→11:53)
[2020-01-15] MEDS: ACETAMINOPHEN TAB 650MG DOSE (2X325MG) PO PRN ×4 (06:39→18:43)
[2020-01-15] MEDS: RIVAROXABAN 20 MG TAB (XARELTO) PO SCH (07:47)
--- NOTE | 2020-01-15 08:03 | ECGEPIP ---
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
[2020-01-15] MEDS ORDERED: **hydrALAZINE** 50 MG TAB PO SCH (09:00)
[2020-01-15] MEDS ORDERED: **hydrALAZINE HCL** 25 MG TAB PO SCH (09:00)
[2020-01-15] MEDS ORDERED: METOPROLOL SUCC (TopROL XL) 50MG **XL** TAB PO SCH (09:00)
[2020-01-15] MEDS ORDERED: NITROGLYCERIN 0.4 MG SUBL TABLET SL STA (13:23)
[2020-01-15] MEDS ORDERED: FUROSEMIDE 20MG/2ML VIAL (J1940) IV ONE (13:30)
[2020-01-15] MEDS ORDERED: SIMVASTATIN 40 MG TAB PO ONE (13:30)
[2020-01-15] MEDS ORDERED: NITROGLYCERIN 0.4 MG SUBL TABLET SL PRN (13:30)
[2020-01-15] MEDS ORDERED: MORPHINE 2 MG/ML 1ML VIAL (J2270) IV ONE (13:45)
[2020-01-15 14:17] LABS: CK-MB VALUE MASS < 1.0 NG/ML (<3.6); CPK CREATINE PHOSPHOKINASE 23 U/L (26-192); MB/CK RELATIVE INDEX 4.35 (< OR =4); TROPONIN I 0.02 NG/ML (< 0.10)
[2020-01-15 14:32] LABS: FREE THYROXINE INDEX 2.6 % (1.3-4.8); THYROID STIMULATING HORMONE 1.85 uIU/ML (0.358-3.740); THYROXINE (T4) 7.1 UG/DL (4.5-12.0)
[2020-01-15] MEDS ORDERED: diltiaZEM 125 MG in NS 100 ML IV SCH ×2 (15:00)
--- NOTE | 2020-01-15 16:16 | ECGEPIP ---
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 SIGNIFICANCE SINCE EARLIER SAME DAY sEPTAL Q V1 ONLY OF ? SIGNIFICANCE PVC ABSENT QTC LONGER STTWAVE ABN DEPRESSION VARIABLE BETWEEN TRACINGS(IMPROVED INFERIORLY) PERSISTS L LATERALLY C/W 01/15/20 0;00 Electronically Signed on 01-15-2020 16:16:24 EDT by Megan Mendoza
[2020-01-15] MEDS ORDERED: CALCIUM CARBONATE 500 MG CHEW U/D PO PRN (19:00)
[2020-01-15] MEDS: AMITRIPTYLINE 50 MG TAB PO SCH (20:13)
[2020-01-15 20:21] LABS: CK-MB VALUE MASS < 1.0 NG/ML (<3.6); CPK CREATINE PHOSPHOKINASE 28 U/L (26-192); MB/CK RELATIVE INDEX 3.57 (< OR =4); TROPONIN I < 0.02 NG/ML (< 0.10)
[2020-01-16] VITALS: BP 141/80
[2020-01-16 04:00] VITALS: BP 146/86
[2020-01-16 06:21] LABS: HEMATOCRIT 34.8 % (36.0-47.0); HEMOGLOBIN 10.7 g/dl (12.0-15.5); MEAN CORPUSCULAR HEMOGLOBIN 31.2 pg (27.0-33.0); MEAN CORPUSCULAR HGB CONC 30.7 g/dl (32.0-36.5); MEAN CORPUSCULAR VOLUME 101.5 fl (80.0-96.0); PLATELET COUNT, AUTOMATED 190 10^3/uL (150-450); RED BLOOD COUNT 3.43 10^6/uL (4.00-5.40); WHITE BLOOD COUNT 8.8 10^3/uL (4.0-10.0)
[2020-01-16 06:48] LABS: ALBUMIN 2.8 GM/DL (3.2-5.2); BILIRUBIN,TOTAL 0.5 MG/DL (0.2-1.0); CALCIUM LEVEL 8.3 MG/DL (8.8-10.2); CREATININE FOR GFR 4.7 MG/DL (0.55-1.30); GLOMERULAR FILTRATION RATE 9.6 (>39); MAGNESIUM LEVEL 2.1 MG/DL (1.8-2.4); POTASSIUM SERUM 5.2 MEQ/L (3.5-5.1); TOTAL PROTEIN 6.6 GM/DL (6.4-8.2)
[2020-01-16 08:00] VITALS: BP 154/78
[2020-01-16] MEDS ORDERED: PRIL20TA2 PO (08:29)
[2020-01-16] MEDS ORDERED: CARD180C4 PO (08:29)
[2020-01-16] MEDS ORDERED: XARE20TA PO (08:29)
[2020-01-16] MEDS ORDERED: FLUTICASONE PROP 0.05% NASAL SPRAY 16 GM (FLONASE) PRN (08:30)
[2020-01-16] MEDS ORDERED: FEXOFENADINE 60 MG TAB PO PRN (08:30)
[2020-01-16] MEDS ORDERED: MIRALAX *UNIT DOSE* 17GM PACKET PO PRN (08:30)
--- NOTE | 2020-01-16 08:34 | IPNPDOC ---
Date Seen The patient was seen on 01/16/20. Progress Note SUBJECTIVE: no c/p palpitations, lightheadedness or sob. says has 120 steps from her bedroom to bathroom at home. no stairs. hr improved with iv cardizem bolus and po q6hrs. no dizziness OBJECTIVE PHYSICAL EXAMINATION: VITAL SIGNS: Please see below. GENERAL: cooperative. no cyanosis HEENT: no jvd moist mm. no cervical LAD CARDIOVASCULAR: irregularly irregular tachycardic S1S2 RESPIRATORY: diminished ABDOMINAL: + bs x 4 quadrants soft obese EXTREMITIES: traceb/l edema LABORATORY DATA, IMAGING STUDIES, MICROBIOLOGY: Please see below. ASSESSMENT AND PLAN: 79 F ESRD on HD presented with cp due to new onset AFib w RVR. PROBLEMS: Afib w rvr, new onset Chest pain due to AFib w RVR ESRD on HD CHF, diastolic dysfunction, compensated UTI present on admission PLAN: once rate controlled, may dc home if cleared by PT. continue cardizem 180 mg daily and xarelto. recheck ua, and resume po abx from home. [facility] V[facility] Signs/I&O Vital Signs Date Time Temp Pulse Resp B/P (MAP) Pulse Ox O2 Delivery O2 Flow Rate FiO2 01/16/20 05:45 110 156/79 01/16/20 04:00 97.1 19 95 01/16/20 00:00 Room Air 01/15/20 08:00 2.0 I&O- Last 24 Hours up to 6 AM 01/16/20 06:00 Intake Total 1080 ml Output Total 0 ml Balance 1080 ml Laboratory Data 24H LABS Laboratory Tests 2 01/15/20 13:39: Total Creatine Kinase 23L, Creatine Kinase MB < 1.0, Creatine Kinase MB Relative Index 4.35H, Troponin I 0.02, Thyroid Stimulating Hormone (TSH) 1.850, Free Thyroxine Index 2.6, Thyroxine (T4) 7.1, Triiodothyronine (T3) Uptake 36 01/15/20 19:37: Total Creatine Kinase 28, Creatine Kinase MB < 1.0, Creatine Kinase MB Relative Index 3.57, Troponin I < 0.02 01/16/20 05:49: Nucleated Red Blood Cells % (auto) 0.0, Anion Gap 8, Glomerular Filtration Rate 9.6L, Calcium Level 8.3L, Magnesium Level 2.1, Total Bilirubin 0.5, Aspartate Amino Transf (AST/SGOT) 13, Alanine Aminotransferase (ALT/SGPT) 13, Alkaline Phosphatase 98, Total Protein 6.6, Albumin 2.8L, Albumin/Globulin Ratio 0.7L CBC/BMP Laboratory Tests 01/16/20 05:49 CANDY OCONNELL MD Jan 16, 2020 08:34
[2020-01-16] MEDS ORDERED: EMLA CREAM 5GM TUBE (LIDOCAINE/PRILOCAINE) TOP ONE (09:00)
[2020-01-16 13:46] VITALS: BP 148/80
[2020-01-16] MEDS: diltiaZEM **CD** 180 MG CAP PO SCH (13:59)
[2020-01-16] MEDS: LEVOTHYROXINE 25MCG TABLET (0.025MG) PO SCH (13:59)
[2020-01-16] MEDS: OMEPRAZOLE 20 MG CAP PO SCH (13:59)
[2020-01-16] MEDS: SIMVASTATIN 40 MG TAB PO SCH (14:00)
[2020-01-16] MEDS: RIVAROXABAN 20 MG TAB (XARELTO) PO SCH (14:00)
[2020-01-16] MEDS: LEVOTHYROXINE 150MCG TABLET (0.15MG) PO SCH (14:00)
[2020-01-16 16:00] VITALS: BP_SYST 123; BP_SYST 150; BP_DIAS 60; BP_DIAS 82
[2020-01-16 19:36] VITALS: BP 135/60
[2020-01-16] MEDS: AMITRIPTYLINE 50 MG TAB PO SCH (20:58)
[2020-01-16] MEDS ORDERED: GABAPENTIN 300 MG CAP PO SCH (21:00)
[2020-01-16] MEDS: ACETAMINOPHEN TAB 650MG DOSE (2X325MG) PO PRN (21:01)
[2020-01-17] VITALS: BP 161/74
[2020-01-17 04:00] VITALS: BP_SYST 154; BP_SYST 164; BP_DIAS 83
[2020-01-17 05:41] LABS: HEMATOCRIT 32.5 % (36.0-47.0); HEMOGLOBIN 10.4 g/dl (12.0-15.5); MEAN CORPUSCULAR HEMOGLOBIN 32.3 pg (27.0-33.0); MEAN CORPUSCULAR VOLUME 100.9 fl (80.0-96.0); PLATELET COUNT, AUTOMATED 166 10^3/uL (150-450); RED BLOOD COUNT 3.22 10^6/uL (4.00-5.40); WHITE BLOOD COUNT 3.9 10^3/uL (4.0-10.0)
[2020-01-17 06:14] LABS: CREATININE FOR GFR 3.31 MG/DL (0.55-1.30); GLOMERULAR FILTRATION RATE 14.4 (>39); POTASSIUM SERUM 4.2 MEQ/L (3.5-5.1)
[2020-01-17] MEDS: LEVOTHYROXINE 25MCG TABLET (0.025MG) PO SCH (06:15)
[2020-01-17] MEDS: LEVOTHYROXINE 150MCG TABLET (0.15MG) PO SCH (06:15)
[2020-01-17 08:00] VITALS: BP 122/60
[2020-01-17] MEDS: OMEPRAZOLE 20 MG CAP PO SCH (08:28)
[2020-01-17 08:29] VITALS: BP 122/60
[2020-01-17] MEDS: diltiaZEM **CD** 180 MG CAP PO SCH (08:29)
[2020-01-17] MEDS: SIMVASTATIN 40 MG TAB PO SCH (08:29)
[2020-01-17] MEDS: RIVAROXABAN 20 MG TAB (XARELTO) PO SCH (08:29)
--- NOTE | 2020-01-17 08:51 | DS.PDOC ---
Discharge Summary General Date of Admission Jan 15, 2020 at 03:44 Date of Discharge jan 17, 2020 Discharge Summary DISCHARGE DIAGNOSES: Afib w rvr, new onset Chest pain due to AFib w RVR ESRD on HD CHF, diastolic dysfunction, compensated UTI present on admission COMPLICATIONS/CHIEF COMPLAINT: Atriel Fibrillation With Rapid Ventricular Respons. HOSPITAL COURSE: 77-year-old white female with history of end-stage renal disease on dialysis , CHF presented to the hospital with shortness of breath, chest pain during dialysis, which was stopped. In the Emergency room patient was found to have BNP 41,000, atrial fibrillation with rapid ventricular rate, and systolic blood pressure over 190. She denied any fever or chills. Chest x-ray showed Borderline cardiomegaly. Coarse interstitium with minimal bilateral perihilar infiltrates. She was placed on iv metoprolol with no resolution, and given cardizem iv 25mg bolus and transitioned to po cardizem 30 mg q6hrs with rate control. After 24 hrs, she was changed to po cardizem 180 mg with control, and started on AC with renally dosed eliquis without GI bleed. She cleared PT and discharged home in stable condition. DISCHARGE MEDICATIONS: Please see below. ALLERGIES: Please see below. PHYSICAL EXAMINATION ON DISCHARGE: VITAL SIGNS: Please see below. GENERAL: cooperative. no cyanosis HEENT: no jvd moist mm. no cervical LAD CARDIOVASCULAR: irregularly irregular S1S2 RESPIRATORY: diminished ABDOMINAL: + bs x 4 quadrants soft obese EXTREMITIES: traceb/l edema LABORATORY DATA: Please see below. IMAGING STUDIES: 3. Coarse interstitium with minimal bilateral perihilar infiltrates. There is slight fluid accentuation of the right minor fissure and a left pleural effusion is not excluded. Findings may reflect borderline or early congestive failure or fluid overload. 4. Question of mild left base atelectasis or scar, particularly in the infrahilar region. Electronically signed by: Gerson Mcmillan On 01/15/2020 00:44:20 AM TIME SPENT ON DISCHARGE: 30 minutes. Vital Signs/I&Os Vital Signs Date Time Temp Pulse Resp B/P (MAP) Pulse Ox O2 Delivery O2 Flow Rate FiO2 01/17/20 08:29 78 122/60 01/17/20 08:00 97.5 20 98 Room Air 01/15/20 08:00 2.0 I&O- Last 24 Hours up to 6 AM 01/17/20 06:00 Intake Total 656 ml Output Total 3825 ml Balance -3169 ml Laboratory Data Labs 24H Laboratory Tests 2 01/17/20 05:06: Nucleated Red Blood Cells % (auto) 0.0, Anion Gap 10, Glomerular Filtration Rate 14.4L, Calcium Level 8.0L CBC/BMP Laboratory Tests 01/17/20 05:06 Microbiology Microbiology 01/15/20 Urine Culture, Received Pending Discharge Medications Scheduled Amitriptyline HCl (Amitriptyline HCl) 50 Mg Tablet, 50 MG PO QHS, (Reported) Diltiazem Hcl (Cardizem Cd) 180 Mg Cap.er.24h, 180 MG PO QAM Ferric Citrate (Auryxia) 210 Mg Tab, 420 MG PO WM, (Reported) Gabapentin (Gabapentin) 300 Mg Cap, 300 MG PO QHS, (Reported) Levothyroxine Sodium (Synthroid) 175 Mcg Tab, 175 MCG PO DAILY, (Reported) Lidocaine/Prilocaine (Lidocaine-Prilocaine Cream) 2.5%/2.5% Cream..g., 1 DOSE TOP 3XW, (Reported) SATURDAY, SATURDAY AND SATURDAY PRIOR TO DIALYSIS Nitrofurantoin Monohyd/M-Cryst (Macrobid 100 mg Capsule) 100 Mg Capsule, 100 MG PO BID, (Reported) STARTED ON 01/12/2020 Omeprazole (Omeprazole) 40 Mg Cap, 40 MG PO DAILY, (Reported) Omeprazole Magnesium (Prilosec Otc) 20 Mg Tablet.dr, 20 MG PO DAILY Rivaroxaban (Xarelto) 20 Mg Tablet, 20 MG PO DAILY Scheduled PRN Fexofenadine HCl (Mali Allergy) 180 Mg Tab, 180 MG PO DAILY PRN for ALLERGIES, (Reported) Fluticasone Propionate (Flonase Allergy Relief) 50 Mcg/Act Spr, 1 SPRAY NA DAILY PRN for NASAL CONGESTION, (Reported) Polyethylene Glycol 3350 (Miralax) 17 Gm Powd.pack, 17 GM PO DAILY PRN for CONSTIPATION, (Reported) Allergies Coded Allergies: Ryan (Unverified Allergy, Severe, ANAPHYLAXIS, 07/16/17) FISH (Unverified Allergy, Severe, ANAPHYLAXIS, 01/28/17) TAPE (Verified Allergy, Mild, ADHESIVES-RASH AND REDNESS, 01/28/17) Contrast Media (Unverified Allergy, Unknown, PATIENT STATES SHE CAN TOLERATE PO, 01/28/17) FRUIT (Verified Allergy, Unknown, FRUIT WITH SKIN, 01/28/17) codeine (Verified Allergy, Unknown, 12/30/19) iodine (Verified Allergy, Unknown, 12/30/19) CANDY OCONNELL MD Jan 17, 2020 08:43
--- NOTE | 2020-01-18 10:21 | CR ---
CONSULTATION REQUESTED BY: Greg Schultz DO. REASON FOR CONSULTATION: End-stage renal disease and shortness of breath. HISTORY OF PRESENT ILLNESS: Mrs. Winters is a 77-year-old lady with known history of polycystic kidney disease, hypertension, congestive heart failure and hypothyroidism. She presented to the Emergency Room with shortness of breath and was found to be in atrial fibrillation with rapid ventricular rate. Chest x-ray did show borderline cardiomegaly and minimal bilateral perihilar infiltrates. She does receive her hemodialysis on Saturday, and Saturday schedule, and did receive her last dialysis yesterday. She has not missed any dialysis treatments. Patient is due for dialysis tomorrow and nephrology consultation was requested today. Patient is seen in progressive care unit. PAST MEDICAL HISTORY: Significant for: 1. History of end-stage renal disease due to polycystic kidney disease. 2. Hypertension. 3. Dyslipidemia. 4. History of hypothyroidism. 5. Anemia. 6. History of gastroesophageal reflux disease. PAST SURGICAL HISTORY: Significant for: 1. Gastric bypass surgery in 1970s. 2. Bilateral kidney stones removal. 3. Bilateral breast benign nodules removal. 4. Hysterectomy. 5. Cholecystectomy. 6. Appendectomy. 7. AV fistula surgery. FAMILY HISTORY: Significant for polycystic kidney disease and end-stage renal disease. Her son had a kidney transplant and was on dialysis before. PERSONAL AND SOCIAL HISTORY: Patient is and lives with her . She does not smoke or drink. ALLERGIES: She has multiple allergies including Codeine, iodine, contrast media, tape, fish and dalton. MEDICATIONS: Home medications include: 1. Amitriptyline 30 mg at bedtime. 2. Amlodipine 10 mg daily. 3. Aspirin 81 mg daily. 4. Auryxia 210 mg three tablets with meals. 5. Gabapentin 300 mg at bedtime. 6. Hydralazine 25 mg t.i.d. 7. Levothyroxine 175 mcg daily. 8. Omeprazole 40 mg daily. 9. Colace 100 mg p.r.n. for constipation. 10. Mali 180 mg p.r.n. for allergies. 11. MiraLax as needed for constipation. REVIEW OF SYSTEMS: Patient denies any fever or chills. Ears, nose and throat are unremarkable. Cardiovascular system is significant for shortness of breath. She was noticed to be in rapid atrial fibrillation. At present, her dyspnea has improved, however, she remains in atrial fibrillation. Respiratory system is negative for cough or hemoptysis. GI system is negative for vomiting or diarrhea. system is significant for recurrent urinary tract infections; she has been treated recently. Musculoskeletal system is significant for chronic back pain. She denies any leg edema at present. Endocrine system is significant for secondary hyperparathyroidism and hypothyroidism. Skin is negative for rash or ulcers. Psychosocial system is negative for depression and anxiety. Hematological system is significant for anemia of chronic kidney disease. PHYSICAL EXAMINATION: GENERAL: Patient is lying in the recliner chair at the time of my visit. She is not in any acute distress. VITALS: Temperature 97.4 degrees Fahrenheit, heart rate 110 per minute, respiratory rate 16 per minute, blood pressure 138/65 mmHg and oxygen saturation 98% on room air. HEENT: Head atraumatic. Neck supple and JVD not abnormally elevated. She has no oral thrush or ulcers. Pupils are equal and reactive to light. Sclerae anicteric. HEART: Sounds are irregular in rhythm and tachycardic. LUNGS: A few bibasilar rales. ABDOMEN: Soft and nontender. Bowel sounds are normal. Polycystic kidneys are palpable. EXTREMITIES: Without any cyanosis or clubbing. Left arm AV fistula is patent. NEUROLOGIC: She is awake, grossly intact and at her baseline mentation. LABORATORY DATA: On admission, WBC 14.6, hemoglobin 11.5, hematocrit 38.0, platelets 242,000. Sodium 141, potassium 4.4, CO2 32, BUN 31, creatinine 3.30. Pro-BNP 41,613. TSH level 1.85, free T4 2.6. Troponin less than 0.02. IMAGING STUDIES: Chest x-ray done in the Emergency Room was negative for any acute infiltrate or effusion. She had borderline cardiomegaly and some evidence for mild volume overload. PROBLEMS: 1. Shortness of breath: Most likely this is related to rapid atrial fibrillation. She has minimal hypervolemia if any on her chest x-ray. She does not have any peripheral edema. She did receive her dialysis yesterday and I will go ahead and schedule her for dialysis on Saturday. I do not feel that at this point an urgent dialysis is needed. 2. End-stage renal disease: Patient is regularly dialyzed on Saturday, and Saturday schedule. She will be dialyzed on Saturday. 3. Hypertension: Blood pressure is well controlled, however, she is still somewhat tachycardic. Her preadmission medications included Amlodipine. I feel that now we can switch her to beta-howie and adjust the dose to keep her heart rate within desired range. We can certainly stop her Amlodipine. Hydralazine will not be the best medication for her hypertension due to possible tachycardia with it. Calcium channel howie is appropriate and I will suggest to adjust the dose according to the need. 4. Anemia: Her anemia is mild and does not need any urgent intervention at present. Thank you for involving me in the care of Mrs. Romero. Nephrology service will follow her along with you. PABLO
--- NOTE | 2020-01-18 12:28 | IPN ---
DATE: 01/16/2020 SUBJECTIVE: Patient was seen and examined at the bedside today morning. She is afebrile and hemodynamically stable. She was getting her hemodialysis when I saw her. She is tolerating the hemodialysis procedure well. Her shortness of breath is getting better. Heart rate is better controlled now. OBJECTIVE: VITAL SIGNS: Temperature 97.5 degrees Fahrenheit, blood pressure 150/82, pulse 72, respiratory rate 18, saturating 95% on room air. INTAKE AND OUTPUT: Urine output recorded as 200 mL. Weight in the bed scale was 100.2 kg. PHYSICAL EXAMINATION: GENERAL: Patient is awake, alert and oriented x3, lying in bed getting hemodialysis done. HEAD AND NECK: Extraocular muscles intact. Pupils equally round and reactive to light. Mucous membranes are moist. Neck is supple. Mildly elevated JVD. CARDIOVASCULAR: S1, S2, irregularly irregular heart rate. No edema of the bilateral lower extremities. RESPIRATORY: Decreased breath sounds at the bases especially on the left side. ABDOMEN: Soft, obese. Positive bowel sounds, nontender. I could not palpate her kidneys. MUSCULOSKELETAL: No clubbing or cyanosis. Pulses are 2+. CONTINUING EDUCATION DEAN: No focal deficit. AV ACCESS: She has a left arm AV fistula, which is being used for dialysis. LABORATORY REVIEW: CBC showed WBC 8.8, hemoglobin 10.7, platelets 190,000. BMP showed sodium 134, potassium 5.2, chloride 99, bicarb 27, BUN 54, creatinine 4.7. Albumin 2.8. MICROBIOLOGY: Urine culture is pending. IMAGING STUDIES: A chest x-ray was done on 01/14/2020, there is no repeat chest x-ray available at this time. CURRENT INPATIENT MEDICATIONS: Patient's medications were all reviewed by myself. Her Cardizem CD dose has been changed to 180 mg p.o. daily. No other significant change in the medications today as compared with yesterday. ASSESSMENT AND PLAN: 1. End-stage renal disease: Patient is being dialyzed today and I will try to remove at least 3.5 kg of fluid as tolerated by her blood pressure. 2. Shortness of breath and fluid overload: It is secondary to a combination of end-stage renal disease and atrial fibrillation with rapid ventricular rate. Atrial fibrillation is being controlled as recommended by cardiology and fluid is being managed with dialysis. 3. Hyperkalemia: Patient is being dialyzed with a 2k bath. Potassium should improve after that. 4. Anemia and end-stage renal disease: Hemoglobin level is 10.7, which is optimal at this time. No need of Aranesp administration at this time. 5. Atrial fibrillation with rapid ventricular rate: She is currently on Cardizem and she is anticoagulated with Xarelto 20 mg p.o. daily. MTDD
== END 2020-01-17 11:12 | disposition home health service (06) ==
LOC: M ED 23:29 → M ED INP 23:30 → UNDOADMOB 01-15 03:44 → ENRESERV 01-15 04:18 → M PCU 01-15 04:58 → M ED INP 01-15 04:58 → UNDODISOB 01-17 11:12
PROVIDERS: ADMIT Internal Medicine; ATTEND Internal Medicine
DX: I48.0 Paroxysmal atrial fibrillation (principal); R07.9 Chest pain, unspecified; N18.6 End stage renal disease; Z79.899 Other long term (current) drug therapy; I50.30 Unspecified diastolic (congestive) heart failure; N39.0 Urinary tract infection, site not specified; Z91.018 Allergy to other foods; Z91.041 Radiographic dye allergy status; Z88.5 Allergy status to narcotic agent; K21.9 Gastro-esophageal reflux disease without esophagitis; D64.9 Anemia, unspecified; I12.0 Hypertensive chronic kidney disease with stage 5 chronic kidney disease or end stage renal disease; E03.9 Hypothyroidism, unspecified; Q61.2 Polycystic kidney, adult type; Z98.84 Bariatric surgery status
CPT/HCPCS: 36415; 71045; 80048; 80053; 81001; 82550; 82553; 83735; 83880; 84436; 84443; 84479; 84484; 85025; 85027; 87088; 87186; 93005; 93041; 94640; 94760; 96374; 96375; 96376; 97116; 97161; 97165; 97530; 99285; G0257; G0378; J0360; J2270

== ENCOUNTER 2020-01-19 11:59 | Inpatient (IN) | payer MEDICARE, OTHER ==
[~2020-01-19] VITALS: Ht 170.2 cm; Wt 100.7 kg
[2020-01-19] VITALS (7 sets, daily range): BP systolic 145–240; BP diastolic 73–100; PULSE 86; O2SAT 90–93
[~2020-01-19 11:59] MED LIST changes: +AMIT-257 PO; +CARD180C4 PO; +LIDO2.5C15 TOP; +METO1TAB7 PO; +MIRA1POW3 PO; +PRIL20TA2 PO; +XARE20TA PO
[2020-01-19 13:31] LABS: BASO # 0.1 10^3/uL (0.0-0.2); BASO % 0.3 % (0.0-1.0); EOS # 0.1 10^3/uL (0.0-0.5); EOS % 0.3 % (0.0-3.0); HEMATOCRIT 35.7 % (36.0-47.0); HEMOGLOBIN 11.5 g/dl (12.0-15.5); LYMPH # 0.1 10^3/uL (1.5-5.0); LYMPH % 0.3 % (24.0-44.0); MEAN CORPUSCULAR HEMOGLOBIN 31.9 pg (27.0-33.0); MEAN CORPUSCULAR HGB CONC 32.2 g/dl (32.0-36.5); MEAN CORPUSCULAR VOLUME 98.9 fl (80.0-96.0); MONO # 0.4 10^3/uL (0.0-0.8); MONO % 2.3 % (0.0-5.0); NEUTROPHILS # 18.4 10^3/uL (1.5-8.5); NEUTROPHILS % 96.4 % (36.0-66.0); PLATELET COUNT, AUTOMATED 222 10^3/uL (150-450); RED BLOOD COUNT 3.61 10^6/uL (4.00-5.40); WHITE BLOOD COUNT 19.1 10^3/uL (4.0-10.0)
[2020-01-19 14:12] LABS: INR 1.65; PROTHROMBIN TIME 19.9 SECONDS (12.5-14.3)
[2020-01-19 14:13] LABS: PARTIAL THROMBOPLASTIN TIME 44.5 SECONDS (24.2-38.5)
--- NOTE | 2020-01-19 14:21 | REPVR ---
PROCEDURE INFORMATION: Exam: XR Chest, 2 Views Exam date and time: 01/19/2020 2:05 PM Age: 79 years old Clinical indication: Cough and dyspnea and shortness of breath; Additional info: Dyspnea/cough TECHNIQUE: Imaging protocol: XR of the chest Views: 2 views. COMPARISON: CR PORTABLE CHEST X-RAY 01/14/2020 11:56 PM FINDINGS: Tubes, catheters and devices: Surgical clips project over the upper abdomen. Lungs: Linear atelectasis or scarring in the left mid lung. Mild patchy consolidation in the left lung base. Pleural space: Trace bilateral pleural effusions. Heart/Mediastinum: Stable prominence of the cardiac silhouette. Diaphragm: Stable mild elevation of the right hemidiaphragm. Bones/joints: Degenerative change of the spine. IMPRESSION: 1. Mild patchy consolidation in the left lung base. 2. Trace bilateral pleural effusions. Electronically signed by: Georgie Tran On 01/19/2020 14:21:44 PM
[2020-01-19 14:24] LABS: ALT/SGPT 11 U/L (12-78); BILIRUBIN,DIRECT 0.2 MG/DL (0.0-0.2); BILIRUBIN,TOTAL 0.6 MG/DL (0.2-1.0); BLOOD UREA NITROGEN 18 MG/DL (7-18); CALCIUM LEVEL 8.7 MG/DL (8.8-10.2); CARBON DIOXIDE LEVEL 30 MEQ/L (21-32); CHLORIDE LEVEL 98 MEQ/L (98-107); CK-MB VALUE MASS < 1.0 NG/ML (<3.6); CPK CREATINE PHOSPHOKINASE 20 U/L (26-192); FREE T4 1.46 NG/DL (0.76-1.46); GLOMERULAR FILTRATION RATE 19.9 (>39); GLUCOSE, FASTING 110 MG/DL (70-100); NT-PRO BNP 26250 PG/ML (<450); POTASSIUM SERUM 3.6 MEQ/L (3.5-5.1); SODIUM LEVEL 134 MEQ/L (136-145); TOTAL PROTEIN 6.9 GM/DL (6.4-8.2); TROPONIN I < 0.02 NG/ML (< 0.10)
[2020-01-19] MEDS ORDERED: DILT180C70 PO (14:54)
[2020-01-19] MEDS ORDERED: XARE20TA PO (14:54)
[2020-01-19] MEDS ORDERED: FUROSEMIDE 40MG/4ML VIAL (J1940) IV ONE (15:00)
[2020-01-19] MEDS ORDERED: PIPERACILLIN/TAZOBACTAM SOD 3.375 GM in D5W MINI-BAG PLUS 50 ML IV ONE (15:00)
[2020-01-19] MEDS ORDERED: VANCOMYCIN HCL 1,000 MG, VIAL MATE ADAPTER 1 EACH in D5W 250 ML IV ONE ×2 (16:00→22:00)
--- NOTE | 2020-01-19 16:42 | HPEPDOC ---
General Date of Admission 01/19/2020 Date of Service: Jan 19, 2020 Chief Complaint The patient is a 79-year-old female admitted with a reason for visit of Chest Pain and Shortness Of Breath. Source: Patient, EMS Exam Limitations: Clinical conditions, Mild cognitive slowing Timing/Duration: 4-6 hours, Getting worse Severity: Severe Associated Symptoms: Chest Pain, Cough, Fever, Headaches, Nausea, Vomiting, Sh ortness of breath, Dizziness History of Present Illness SUBJECTIVE: Patient presents with SOB and chest pain occurring at her dialysis appointment. EMS was called, the the patient was fond to have high heart rate and blood pressure. EMS brought the patient to the ER. In the ER the patient was found to have a-fib with a rapid rate. They gave her 10 mg of diltiazem IV which did not lower he heart rate. patient was given another 20 mg of diltiazem but her heart rate remained elevated. patient was also given Zosyn and Vancomycin antibiotics for possible pneumonia. Patient still had an elevated heart rate, and hospitalist team was called for possible admission. Patient reports that the pain started last Sat-, and worsened some time this morning while sitting and has increased in intensity since then. This is reportedly the first event of its kind. No aggravating or alleviating conditions. She was seen in the ER Saturday01/17/2020 for atrial fibrillation. Hx provided by son described visit to ER on Saturday as being for a kidney infection. She was treated with nitrofurantoin which has not been taken since discharge. The chest pain is described as severe, located to the back, chest, neck and head B/L. Pain is described as a "category 5 hurricane" Home Medications Scheduled Amitriptyline HCl (Amitriptyline HCl) 50 Mg Tablet, 50 MG PO QHS, (Reported) Apixaban (Eliquis) 5 Mg Tablet, 5 MG PO BID Ferric Citrate (Auryxia) 210 Mg Tab, 420 MG PO WM, (Reported) Gabapentin (Gabapentin) 300 Mg Cap, 300 MG PO QHS, (Reported) Levothyroxine Sodium (Synthroid) 175 Mcg Tab, 175 MCG PO DAILY, (Reported) Lidocaine/Prilocaine (Lidocaine-Prilocaine Cream) 2.5%/2.5% Cream..g., 1 DOSE TOP 3XW, (Reported) SATURDAY, SATURDAY AND SATURDAY PRIOR TO DIALYSIS Omeprazole (Omeprazole) 40 Mg Cap, 40 MG PO DAILY, (Reported) Rivaroxaban (Xarelto) 20 Mg Tablet, 20 MG PO QPM, (Reported) dilTIAZem HCl (Diltiazem 24Hr Cd) 180 Mg Cap.er.24h, 180 MG PO DAILY, (Reported) Scheduled PRN Fexofenadine HCl (Mali Allergy) 180 Mg Tab, 180 MG PO DAILY PRN for ALLERGIES, (Reported) Fluticasone Propionate (Flonase Allergy Relief) 50 Mcg/Act Spr, 1 SPRAY NA DAILY PRN for NASAL CONGESTION, (Reported) Polyethylene Glycol 3350 (Miralax) 17 Gm Powd.pack, 17 GM PO DAILY PRN for CONST IPATION, (Reported) Allergies Coded Allergies: Ryan (Unverified Allergy, Severe, ANAPHYLAXIS, 07/16/17) FISH (Unverified Allergy, Severe, ANAPHYLAXIS, 01/28/17) TAPE (Verified Allergy, Mild, ADHESIVES-RASH AND REDNESS, 01/28/17) Contrast Media (Unverified Allergy, Unknown, PATIENT STATES SHE CAN TOLERATE PO, 01/28/17) FRUIT (Verified Allergy, Unknown, FRUIT WITH SKIN, 01/28/17) iodine (Verified Allergy, Unknown, 12/30/19) codeine (Verified Adverse Reaction, Mild, stomach upset, 01/19/20) Past Medical History Medical History PMHx: Patient is a poor historian. - Recently diagnosed A. fib (on Anticoagulation with Xarelto) - HTN - ESRD on HD (TTS) - Hypothyroidism - Mood disorder - Neuropathy - GERD Surgical History Unobtainable Family History Significant Family History: Unable to assess Unable to be determined as patient is fully oriented Social History Unable to obtain A-FIB/CHADSVASC A-FIB History Current/History of A-Fib/PAF?: Yes Current PO Anticoag Therapy: Yes Age/Risk Factor Scoring CHADSVASC: CHADSVASC Response (Comments) Value Age Risk Factor Age >/= 75 years old 2 Gender Risk Factor Female 1 Hx of HTN Yes 1 Total 4 Treatment Treatment ordered: Apixaban Review of Systems Constitutional: Reports: Fever, Lethargy ENT: Reports: Head Aches Pulmonary: Reports: Dyspnea, Cough (nonproducive) Cardiovascular: Reports: Chest Pain, Palpitations, Lt Headedness Gastrointestinal: Reports: Nausea, Abdominal Pain, Diarrhea, Constipation; Denies: Vomiting Neurological: Reports: Other Symptoms (trembling) Physical Examination General Exam: Positive: Moderate Distress, Other (lethargic, alert, not oriented) ENT Exam: Positive: Tongue Midline Chest Exam: Positive: Clear to auscultation Heart Exam: Positive: Tachycardic, Irregular Rhythm Abdomen Exam: Positive: Normal bowel sounds, Tenderness (tenderness to palpation L lower quadrent ) Extremity Exam: Positive: Normal pulses Neuro Exam: Positive: Strength at 5/5 X4 ext Psych Exam: Positive: Anxiety Vital Signs Vital Signs Date Time Temp Pulse Resp B/P (MAP) Pulse Ox O2 Delivery O2 Flow Rate FiO2 01/19/20 14:58 180/81 01/19/20 13:12 139 01/19/20 12:59 91 01/19/20 12:04 99.3 36 Room Air Laboratory Data Labs 24H Laboratory Tests 2 01/19/20 13:09: Immature Granulocyte % (Auto) 0.4, Neutrophils (%) (Auto) 96.4H, Lymphocytes (%) (Auto) 0.3L, Monocytes (%) (Auto) 2.3, Eosinophils (%) (Auto) 0.3, Basophils (%) (Auto) 0.3, Neutrophils # (Auto) 18.4H, Lymphocytes # (Auto) 0.1L, Monocytes # (Auto) 0.4, Eosinophils # (Auto) 0.1, Basophils # (Auto) 0.1, Nucleated Red Bl ood Cells % (auto) 0.0, Prothrombin Time 19.9H, Prothromb Time International Ratio 1.65, Activated Partial Thromboplast Time 44.5H, Anion Gap 6L, Glomerular Filtration Rate 19.9L, Calcium Level 8.7L, Total Bilirubin 0.6, Direct Bilirubin 0.2, Aspartate Amino Transf (AST/SGOT) 10, Alanine Aminotransferase (ALT/SGPT) 11L, Alkaline Phosphatase 103, Total Creatine Kinase 20L, Creatine Kinase MB < 1.0, Creatine Kinase MB Relative Index 5.00H, Troponin I < 0.02, HP-Hhm-H-Type Natriuretic Peptide 32166O, Total Protein 6.9, Albumin 3.0L, Albumin/Globulin Ratio 0.8L, Thyroid Stimulating Hormone (TSH) 1.720, Free Thyroxine 1.46 CBC/BMP Laboratory Tests 01/19/20 13:09 Microbiology Microbiology 01/19/20 Blood Culture, Received Pending 01/19/20 Blood Culture, Received Pending RAD Interpretation STUDY: CXR Rad Actions: Report Reviewed RAD Interpretation: Other Result Comments: (Mild patchy consolidation at L lung base and trace b/l effusions. ) Assessment/Plan Grabiel Romero is a 79 yo F w/ HTN presents with SOB and chest pain concerning for exasperation of atrial fibrillation and pneumonia. Plan / VTE VTE Prophylaxis Ordered?: Yes Plan Plan 1. A-fib with rvr (may be secondary to pneumonia) - Recently diagnosed A. fib (on Anticoagulation with Xarelto as an outpatient); unclear if patient is compliant with medications -tx with diltiazem 60 mg q6h -continuous telemetry -echocardiogram -changed anticoagulation to Eliquis 5 mg bid 2. Pneumonia - coverage for HCAP -patient was recently hospitalized, so this could be nosocomial. Treat broad spectrum with vancomycin and Zosyn -MRSA pcr ordered. If negative, vancomycin can be discontinued. -Sputum gram stain and culture 3. Possible Urinary Tract Infection -Previously diagnosed. the patient was prescribed Macrobid. Discontinue. Continue with antibiotics as above. -UA 4. End stage renal disease -Continue dialysis schedule -Nephrology has been consulted and we appreciate their input 5. HTN -patient has IV hydralazine 10 mg q8h for high blood pressure -continue patients home HTN medications Hypothyroidism - c/w Levothyroxine Mood disorder - c/w Amitriptyline Neuropathy - c/w Gabapentin GERD - c/w PPI DVT prophylaxis - c/w full anticoagulation with Eliquis Plan is to admit the patient to the Progressive Care Unit for further care. Disposition Admission for atrial fibrillation exacerbation and suspected pneumonia. Pending clinical improvement of cardiac symptoms. GME ATTESTATION GME ATTESTATION My faculty preceptor for this patient encounter was physically present during the encounter and was fully available. All aspects of the patient interview, examination, medical decision making process, and medical care plan development were reviewed and approved by the faculty preceptor. The faculty preceptor is aware and concurs with the plan as stated in the body of this note and will att est to such by his/her cosignature. ATTENDING NOTE I, Jaycee Romero, have independently examined this patient and performed my own physical exam, as well as reviewed the documentation and edited where necessary. I have discussed in detail with the resident / student the findings and plan of treatment as documented by the resident / student and edited their note. I agree with their findings and treatment plan and have edited their documentation. I will continue to follow the patient during this hospital stay. DAPHNE CEBALLOS Jan 19, 2020 16:42 JAYCEE ROMERO MD Jan 20, 2020 11:38
[2020-01-19] MEDS ORDERED: MIRALAX *UNIT DOSE* 17GM PACKET PO PRN (17:00)
[2020-01-19] MEDS ORDERED: FEXOFENADINE 60 MG TAB PO PRN (17:00)
[2020-01-19] MEDS ORDERED: FLUTICASONE PROP 0.05% NASAL SPRAY 16 GM (FLONASE) PRN (17:00)
[2020-01-19] MEDS: hydrALAZINE 20MG/ML 1ML VIAL (J0360 PER 20MG) IV SCH (17:58)
[2020-01-19] MEDS: ACETAMINOPHEN TAB 650MG DOSE (2X325MG) PO PRN (18:00)
[2020-01-19 19:35] LABS: CK-MB VALUE MASS < 1.0 NG/ML (<3.6); CPK CREATINE PHOSPHOKINASE 19 U/L (26-192); MB/CK RELATIVE INDEX 5.26 (< OR =4); TROPONIN I < 0.02 NG/ML (< 0.10)
[2020-01-19] MEDS: AMITRIPTYLINE 50 MG TAB PO SCH (21:00)
[2020-01-19] MEDS: APIXABAN 5 MG TAB (ELIQUIS) PO SCH (21:48)
[2020-01-19] MEDS: GABAPENTIN 300 MG CAP PO SCH (21:49)
[2020-01-19] MEDS ORDERED: MORPHINE 2 MG/ML 1ML VIAL (J2270) IV PRN (22:30)
[2020-01-20] VITALS (24 sets, daily range): BP systolic 139–146; BP diastolic 62–95; PULSE 90–95; O2SAT 90–98
[2020-01-20] MEDS ORDERED: PIPERACILLIN/TAZOBACTAM SOD 4.5 GM in D5W MINI-BAG PLUS 100 ML IV SCH ×2
[2020-01-20] MEDS: ACETAMINOPHEN TAB 650MG DOSE (2X325MG) PO PRN ×2 (00:09→06:39)
[2020-01-20 01:28] LABS: CK-MB VALUE MASS < 1.0 NG/ML (<3.6); CPK CREATINE PHOSPHOKINASE 15 U/L (26-192); MB/CK RELATIVE INDEX 6.67 (< OR =4); TROPONIN I < 0.02 NG/ML (< 0.10)
[2020-01-20] MEDS: hydrALAZINE 20MG/ML 1ML VIAL (J0360 PER 20MG) IV SCH ×3 (02:00→18:26)
[2020-01-20 05:24] LABS: HEMATOCRIT 30.7 % (36.0-47.0); HEMOGLOBIN 9.7 g/dl (12.0-15.5); MEAN CORPUSCULAR HEMOGLOBIN 31.3 pg (27.0-33.0); MEAN CORPUSCULAR HGB CONC 31.6 g/dl (32.0-36.5); PLATELET COUNT, AUTOMATED 219 10^3/uL (150-450); WHITE BLOOD COUNT 15.8 10^3/uL (4.0-10.0)
--- NOTE | 2020-01-20 05:39 | ECGEPIP ---
[facility] [place] - ED Test Date: 2020-01-19 Pat Name: DARCY FRENCH Department: Room: - Gender: Female Continuous Improvement Coordinator: : 1940 Requested By: DOREEN Camarena Order Number: [id number] Reading MD: Eze Pickard Measurements Intervals Welch Rate: 131 P: NM: 0 QRS: -36 QRSD: 150 T: 34 QT: 327 QTc: 484 Interpretive Statements ATRIAL FIBRILLATION WITH RAPID VENTRICULAR RESPONSE LEFT AXIS DEVIATION RIGHT BUNDLE BRANCH BLOCK VOLTAGE CRITERIA FOR LVH NSTTW ABNORMALITY(S) SIMILAR TO 01/15/20 Electronically Signed on 01-20-2020 5:38:39 EDT by Eze Pickard
[2020-01-20 05:49] LABS: CALCIUM LEVEL 8.4 MG/DL (8.8-10.2); CREATININE FOR GFR 3.52 MG/DL (0.55-1.30); GLOMERULAR FILTRATION RATE 13.4 (>39); POTASSIUM SERUM 3.9 MEQ/L (3.5-5.1)
[2020-01-20] MEDS: LEVOTHYROXINE 25MCG TABLET (0.025MG) PO SCH (06:39)
[2020-01-20] MEDS: PIPERACILLIN/TAZOBACTAM SOD 4.5 GM in D5W MINI-BAG PLUS 100 ML IV SCH ×2 (06:40→18:24)
[2020-01-20] MEDS: LEVOTHYROXINE 150MCG TABLET (0.15MG) PO SCH (06:42)
[2020-01-20] MEDS: OMEPRAZOLE 20 MG CAP PO SCH (08:57)
[2020-01-20] MEDS: APIXABAN 5 MG TAB (ELIQUIS) PO SCH ×2 (08:57→20:05)
--- NOTE | 2020-01-20 09:20 | IPNPDOC ---
Text Note Date of Service The patient was seen on 01/20/20. NOTE SUBJECTIVE: The patient is examined in her room. She is sitting comfortably in a chair and is not in any acute distress. She reports feeling better than she did upon admission, however she is still experiencing mild chest pain, low back pain (chronic), SOB and persistent cough. She did not sleep well. She explains that after she was administered pain medications last night that she can distinguish between the sources of her pain. She has urinated twice since admission and has felt no pyuria. She reports constipation. OBJECTIVE: VITALS: See below General: No acute distress, sitting comfortably in a chair. She was lethargic and coughing. HEENT: CN II-IX, XI, and XII are intact bilaterally. Patient is speaking without hoarseness, but uvula cold not be appreciated. Tongue is midline on protrusion. CV: Irregular rhythm, regular rate. S1 and S2 sounds are heard. No murmurs, rubs or gallops noted. Weak radial pulse noted in L arm. 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 LUNGS: There is some crackling in the Lower Left lobe. Upper lobes and lower right lobe are clear to auscultation without rales, rhonchi or wheezing. ABDOMEN: Diffuse tenderness to the abdomen. Abdomen is taut, but there is no visible distention EXTREMITIES: There is no edema or swelling. ASSESSMENT/PLAN Patient is a 79 yo F who presented to the ED with exacerbation of atrial fibrillation, shortness of breath, coughing and hypertension. She was found to have lower L lung base crackled suspicious for pneumonia and was admitted to the hospital Chest XR reveals mild patchy infiltrates in the Lower L lobe of the lung. 1. Atrial Fibrillation w/ RVR -RVR resolved for now. HR decreased from 130s at presentation to 80s-90s at exam ination. -Continue diltiazem, 60 mg q6h PO -continue continuous telemetry 2. PNEUMONIA -Feeling better today. Less pain, decreased shortness of breath. -Sputum Gram stain and culture pending -Blood culture pending -Continue Zosyn broad spectrum treatment, 100 mg q12h IV -Vancomycin discontinued 3. Possible UTI -Not currently experiencing pyuria -Continue broad spectrum antibiotics as above. -UA pending 4. HTN -BP improved from 200/120 to 142/81. -Continue hydralazine 10 mg q8h IV -Continue home HTN medications 5. Constipation -Administer Miralax 6. End Stage Renal Disease -Continue Dialysis schedule -Refer to Nephrology consult -Continue Renal Diet 7. Neuropathy -Continue gabapentin 300mg QHS PO 8. DVT prophylaxis -continue Eliquis 5 mg bid 9. Low back pain -Greatly improved after dose of morphine sulfate -Continue morphine sulfate q4h PRN IV -Refer to [facility] at discharge VS,Elisabeth, I+O VS, Elisabeth, I+O Laboratory Tests 01/19/20 13:09 01/20/20 05:00 Vital Signs Date Time Temp Pulse Resp B/P (MAP) Pulse Ox O2 Delivery O2 Flow Rate FiO2 01/20/20 08:00 98.2 71 20 142/81 (101) 96 Nasal Cannula 2.0 I&O- Last 24 Hours up to 6 AM 01/20/20 06:00 Intake Total 890 ml Output Total 100 ml Balance 790 ml DAPHNE CEBALLOS Jan 20, 2020 09:20
[2020-01-20] MEDS ORDERED: ELIQ5TAB PO (10:57)
--- NOTE | 2020-01-20 12:25 | REPVR ---
PROCEDURE INFORMATION: Exam: CT Chest Without Contrast Exam date and time: 01/20/2020 11:51 AM Age: 79 years old Clinical indication: Shortness of breath; Additional info: Pneumonia, SOB, esrd TECHNIQUE: Imaging protocol: Computed tomography of the chest without contrast. 3D rendering (Not supervised by radiologist): MIP and/or 3D reconstructed images were created by the technologist. Radiation optimization: All CT scans at this facility use at least one of these dose optimization techniques: automated exposure control; mA and/or kV adjustment per patient size (includes targeted exams where dose is matched to clinical indication); or iterative reconstruction. COMPARISON: CT Chest without contrast 06/07/2018 8:24 PM FINDINGS: Lungs: There is a stable 5 mm nodule in the right upper lobe. Pleural space: There is a large right pleural effusion. This is new since prior study. Underlying infection cannot be excluded. There is a small left pleural effusion. Heart: There are atherosclerotic changes of the coronary arteries. There is cardiomegaly. Mediastinal space: There is parenchymal infiltrate within the left upper lobe emanating from the left hilum, similar to prior study. Aorta: There are calcified atherosclerotic changes of the aorta. Lymph nodes: There are multiple borderline enlarged mediastinal lymph nodes, more prominent than prior study. Both inflammatory and neoplastic processes could account for this change. The left hilum appears sorenson than prior study. Liver: There are low density lesions in the liver, likely cysts, but some are not fully characterized on this exam. Spleen: There is splenomegaly. Kidneys and ureters: The upper pole of the left kidney appears deformed but it is not imaged in its entirety on this exam. Stomach and bowel: Postsurgical changes are noted involving the stomach, please correlate with surgical history. Bones/joints: Unremarkable. No acute fracture. Soft tissues: See "Lymph nodes" finding. IMPRESSION: 1. There is a large right pleural effusion. This is new since prior study. Underlying infection cannot be excluded. 2. There are multiple borderline enlarged mediastinal lymph nodes, more prominent than prior study. Both inflammatory and neoplastic processes could account for this change. The left hilum appears sorenson than prior study. Please correlate clinically. Follow-up postcontrast CT scan is recommended. 3. There is parenchymal infiltrate within the left upper lobe emanating from the left hilum, similar to prior study. Findings could represent recurrent pneumonia in the appropriate clinical setting, please correlate clinically. 4. There is a stable 5 mm nodule in the right upper lobe. Followup as per Fleischner criteria is recommended. 5. The upper pole of the left kidney appears deformed but it is not imaged in its entirety on this exam. Within the limitations of this exam, the appearance is similar to prior study. Electronically signed by: Manish Keen On 01/20/2020 12:25:45 PM
[2020-01-20] MEDS ORDERED: **VANCO AFTER HD** MISC XX SCH (16:00)
[2020-01-20] MEDS ORDERED: VANCOMYCIN HCL 1,000 MG, VIAL MATE ADAPTER 1 EACH in D5W 250 ML IV SCH (16:00)
[2020-01-20] MEDS: AMITRIPTYLINE 50 MG TAB PO SCH (20:05)
[2020-01-20] MEDS: GABAPENTIN 300 MG CAP PO SCH (20:05)
[2020-01-20] MEDS ORDERED: DARBEPOETIN 200MCG/0.4ML *DIALYSIS* SYRINGE (J0882 PER 1MCG) IV SCH (21:30)
[2020-01-21] VITALS (11 sets, daily range): BP systolic 128–200; BP diastolic 60–80; PULSE 75–94; O2SAT 94–98
[2020-01-21] MEDS: hydrALAZINE 20MG/ML 1ML VIAL (J0360 PER 20MG) IV SCH ×2 (02:00→10:00)
[2020-01-21 05:40] LABS: HEMATOCRIT 30.2 % (36.0-47.0); HEMOGLOBIN 9.4 g/dl (12.0-15.5); MEAN CORPUSCULAR HGB CONC 31.1 g/dl (32.0-36.5); MEAN CORPUSCULAR VOLUME 99.7 fl (80.0-96.0); PLATELET COUNT, AUTOMATED 239 10^3/uL (150-450); RED BLOOD COUNT 3.03 10^6/uL (4.00-5.40); WHITE BLOOD COUNT 8.5 10^3/uL (4.0-10.0)
[2020-01-21 05:52] LABS: BLOOD UREA NITROGEN 49 MG/DL (7-18); CALCIUM LEVEL 7.9 MG/DL (8.8-10.2); CARBON DIOXIDE LEVEL 29 MEQ/L (21-32); CHLORIDE LEVEL 96 MEQ/L (98-107); CREATININE FOR GFR 5.16 MG/DL (0.55-1.30); GLOMERULAR FILTRATION RATE 8.6 (>39); GLUCOSE, FASTING 101 MG/DL (70-100); POTASSIUM SERUM 4.3 MEQ/L (3.5-5.1); SODIUM LEVEL 133 MEQ/L (136-145)
[2020-01-21] MEDS: PIPERACILLIN/TAZOBACTAM SOD 4.5 GM in D5W MINI-BAG PLUS 100 ML IV SCH (06:00)
[2020-01-21] MEDS: LEVOTHYROXINE 150MCG TABLET (0.15MG) PO SCH (06:01)
[2020-01-21] MEDS: LEVOTHYROXINE 25MCG TABLET (0.025MG) PO SCH (06:01)
--- NOTE | 2020-01-21 07:24 | CR ---
DATE OF CONSULTATION: 01/20/2020 REQUESTING PHYSICIAN: Thiago Romero M.D. REASON FOR CONSULTATION: Management of end-stage renal disease and hemodialysis. CHIEF COMPLAINT: Patient was sent from the dialysis center because of rapid heart rate, altered mental status with cough and fever. HISTORY OF PRESENT ILLNESS: Ainsley Winters is a 79-year-old female with a past medical history of end-stage renal disease on hemodialysis secondary to autosomal dominant polycystic kidney disease, history of atrial fibrillation with rapid ventricular rate, hypothyroidism. She was recently admitted with atrial fibrillation with RVR with fluid overload and was discharged home recently on oral Diltiazem, however when she was at dialysis, she was having shortness of breath and palpitations and rapid heart rate. EMS was called and she was in atrial fibrillation with RVR again in the ER. She was given I.V. Diltiazem. Patient also got the chest imaging done, which showed possible pneumonia. She was admitted under the hospitalist service. Nephrology service was called for further help in the management of this patient. I saw and evaluated the patient today morning at the bedside. She was sitting up in the sofa. She still reports some shortness of breath. Patient also reports that she had a fever spike last night and as per records, she had a T-max of 101.6 degrees Fahrenheit. PAST MEDICAL HISTORY: She has end-stage renal disease dependent on hemodialysis every Saturday, , Saturday, history of autosomal dominant polycystic kidney disease, atrial fibrillation with rapid ventricular rate with recent hospitalization, hypertension, hypothyroidism, peripheral neuropathy. PAST SURGICAL HISTORY: Status post AV fistula placement. ALLERGIES: She is allergic to berries, contrast media, fish, fruit, tape, codeine and iodine. FAMILY HISTORY: Positive family history of autosomal dominant polycystic kidney disease. SOCIAL HISTORY: She lives at home. She denies any smoking, illicit drug abuse. REVIEW OF SYSTEMS: CONSTITUTIONAL: Patient reports fever and chills. EYES: She denies any blurry vision or double vision. ENT: She denies any dysphagia or odynophagia. CARDIOVASCULAR: She reports palpitations, a rapid heart rate. RESPIRATORY: She reports cough and shortness of breath. GASTROINTESTINAL: She denies any nausea or vomiting. GENITOURINARY: She denies any dysuria or hematuria. MUSCULOSKELETAL: She denies any muscle aches and pains. SKIN: She denies any rashes or ulcers. PSYCHIATRIC: She denies any depression or anxiety. She did have confusion when she came to the ER. CENTRAL NERVOUS SYSTEM: She denies any strokes or weakness. HEMATOLOGY/ONCOLOGY: She denies any easy bleeding or bruising. All other review of systems is negative. PHYSICAL EXAMINATION: VITALS: Temperature 98.2 degrees Fahrenheit, T-max 101.6 degrees Fahrenheit, blood pressure 146/70, pulse 98, respiratory rate 18, saturating 95% on room air at 2 liters. INTAKE AND OUTPUT: Urine output recorded as only 100 mL. HEAD AND NECK: Extraocular muscles intact. Pupils equally round and reactive to light. Mucous membranes are moist. Neck is supple. She has mildly elevated JVD. CARDIOVASCULAR: S1, S2, regular rate. Trace edema of the bilateral lower extremities. RESPIRATORY: Decreased breath sounds bilaterally at the bases; worse on the right side all the way up to midline. I could not appreciate a good amount of breath sounds. ABDOMEN: Soft, obese, positive bowel sounds. MUSCULOSKELETAL: No clubbing or cyanosis. Pulses are 2+. CENTRAL NERVOUS SYSTEM: No focal deficit. Power is 5/5 in all extremities. LABORATORY REVIEW: WBC on arrival was 19.1; it is 15.8 now, hemoglobin 9.7, platelets 219,000. Urinalysis done today showed it was cloudy, 2+ leukocyte esterase, wbc too numerous to count. BMP done today showed sodium 135, potassium 3.9, chloride 98, bicarb 30, BUN 29, creatinine 3.5. Troponin less than 0.02. MICROBIOLOGY: Blood culture is negative so far. Gram-stain showed moderate gram-positive cocci in pairs, chains and clusters. Urine culture is pending. IMAGING STUDIES: A CAT scan of the chest was done today, which showed large right pleural effusion and this is new since the prior study. Underlying infection can be excluded. Multiple borderline enlarged mediastinal lymph nodes more prominent than prior study; both inflammatory and infectious process could contribute to this. Parenchymal infiltrate within the left upper lobe emanating from the left hilum, similar to prior study. It could represent recurrent pneumonia. CURRENT INPATIENT MEDICATIONS: Patient's medications were all reviewed by myself. She is currently on Zosyn 4.5 grams I.V. every 12 hours. She is on Vancomycin I.V., Amitriptyline 50 mg q.h.s., Eliquis 5 mg p.o. twice a day, Diltiazem 16 mg p.o. every 6 hours, [place] p.r.n., Gabapentin 300 mg q.h.s., Hydralazine 10 mg I.V. every 8 hours. She is on Levothyroxine 150 mcg p.o. daily along with 25 mcg p.o. daily, morphine p.r.n., Omeprazole 40 mg p.o. daily. ASSESSMENT AND PLAN: 1. End-stage renal disease: Patient's regular dialysis days are Saturday, , Saturday. She was dialyzed yesterday, about 2.3 kg of fluid was removed. No urgent need of dialysis again today. She will be dialyzed again tomorrow morning according to her regular schedule. 2. Healthcare associated pneumonia: Patient is currently on I.V. Vancomycin and Zosyn. Cultures are pending. Continue empiric I.V. antibiotics. 3. Urinary tract infection: Patient has too numerous to count wbcs on urinalysis. I.V. antibiotics for pneumonia should adequately cover the urinary infection as well. Urine culture is pending. 4. Atrial fibrillation with rapid ventricular rate: It might be multifactorial. She has pneumonia. She has large right-sided pleural effusion. Continue Diltiazem and Eliquis at this time. 5. Large right-sided pleural effusion: Continue I.V. antibiotics. Fluid status management will be done with dialysis and if her effusion does not improve, she will need a thoracentesis by IR. 6. Hypothyroidism: Continue current dose of Levothyroxine. Thank you for involving me in the care of this patient. I shall be happy to follow the patient along with you tomorrow morning. MTDD
[2020-01-21] MEDS: APIXABAN 5 MG TAB (ELIQUIS) PO SCH (08:17)
[2020-01-21] MEDS: OMEPRAZOLE 20 MG CAP PO SCH (08:17)
[2020-01-21] MEDS ORDERED: EMLA CREAM 5GM TUBE (LIDOCAINE/PRILOCAINE) TOP SCH (09:00)
[2020-01-21 12:28] LABS: HEPATITIS B SURFACE ANTIGEN NEGATIVE (NEGATIVE)
--- NOTE | 2020-01-21 13:36 | DS.PDOC ---
Discharge Summary General Date of Admission Jan 19, 2020 at 16:13 Date of Discharge January 21, 2020 Attending Physician: JAYCEE ROMERO MD Discharge Summary PROCEDURES PERFORMED DURING STAY: None. ADMITTING DIAGNOSES: 1. Atrial Fibrillation with RVR 2. Pneumonia 3. HTN 4. ESRD 5. Possible UTI 6. Hypothyroidism DISCHARGE DIAGNOSES: 1. Atrial Fibrillation 2. Pneumonia 3. HTN 4. ESRD 5. Possible UTI 6. Hypothyroidism COMPLICATIONS/CHIEF COMPLAINT: Atrial Fibrillation With Rapid Ventricular Respos. Shortness of Breath HISTORY OF PRESENT ILLNESS: Patient reports that the chest pain had started the Sat- before her admission, and had steadily increased until her dialysis appointment Saturday, the 18 of January, where she began to experience acute chest pain and shortness of breath. This was the first event of its kind. She was brought to the ED from her dialysis appointment by EMS with BP of 200/120 and HR of 132 bpm. The weekend prior to the admitting incident she was seen at the hospital for a kidney infection and was discharged home on nitrofurantoin. In the ER the patient was found to have a-fib with rapid rate. 10 mg of diltiazem IV was given in the ED which did not lower her HR. A repeat dose of 20 mg of diltiazem was given but failed to lower her heart rate. The hospitalist team was called for admission. Lung crackles were noted on auscultation and was suspicious for pneumonia. HAP was strongly suspected due to timeframe from previous hospital visit. Zosyn and vancomycin was administered IV. Chest XR confirmed patchy consolidations in the L lower lobe of the lung, and pleural infiltrates in both lungs. HOSPITAL COURSE: The patient was admitted. She was given Eliquis 5mg bid following her a-fib. Her rapid ventricular rate resolved after treatment with diltiazem 60 mg q6h PO. Heart rate decreased from 130s at admission to around 74 at discharge. She was administered hydralazine 10 mg q8h for HTN, which lowered her BP from 200/120 at admission to 138/72 at discharge. For her neuropathy she was administered gabapentin 300 mg qhs PO and her pain was well controlled. For the pneumonia, she was prescribed Zosyn 4.5 mg q12h IV. Blood cultures were negative. Sputum cultures were positive for gram positive diplococci and gram positive rods. The Zosyn would also cover any UTI. Chest pain and SOB decreased over the course of the hospital say, though coughing remained. Nephrology was consulted for ESRD. Patient was dialyzed at the hospital on before discharge. Urine cultures are pending. Home medications for a- fib, HTN and hypothyroidism were continued. The patient passed Physical Therapy and was discharged feeling better with home help services. Patient's diltiazem was switched to extended release 240mg. She was given one dose of 750mg Levaquin, with a plan to take a 500mg dose on Saturday, and finish the course wi th a 500mg dose on Saturday. Patient was discharged on 01/21/2020. Patient is cleared physical therapy for discharge home. She's been advised to follow-up with her primary care provider, and nephrology within the next 7 days. DISCHARGE MEDICATIONS: Please see below. ALLERGIES: Please see below. PHYSICAL EXAMINATION ON DISCHARGE: VITAL SIGNS: Please see below. GENERAL: Patient was pleasant and seen at bedside. She is grossly feeling better, with decreased coughing and resolved SOB. CARDIOVASCULAR EXAMINATION: Irregular rhythm, but normal rate. S1 and S2 sounds heard, no S3 or 4 sounds were noted. No murmurs or rubs were noted. There is an arterial fistula on the L cubital fossa. RESPIRATORY EXAMINATION: There is crackling at the L lung base, and mild crackling at the R lung base. Other lung raines were clear to auscultation. No wheezing, rales or rhonchi noted b/l. ABDOMINAL EXAMINATION: Abdomen is tender to palpation. Bowel sounds heard in all four quadrants. There is some splenomegaly noted on palpation. EXTREMITIES: See CV for arterial fistula. No swelling noted in legs b/l. NEUROLOGICAL EXAMINATION: CN II-XII were intact. PSYCHIATRIC EXAMINATION: Patient is oriented to time, person and place. LABORATORY DATA: Please see below. IMAGING: Chest XR in the ER on 01/19/2020 was reported to show patchy consolidation of L lobe. Chest CT on 01/20/2020 reported large pleural effusion on the R, small pleural effusion on the left, and a stable 5mm nodule in R upper lobe. Repeat Chest XR on 01/21/2020 reported increased interval in L lower lung zone which may represent atelectasis, consolidation or intra fissural fluid, and some pulmonary vascular congestion. PROGNOSIS: Good. ACTIVITY: As tolerated. DISCHARGE PLAN: Continue medications for a-fib, HTN and Hypothyroidism. Switch antibiotic to Levaquin PO. Patient was dialyzed at the hospital before discharge as per schedule. Arrange at home services. DISCHARGE INSTRUCTIONS: 1. 2 doses of Levaquin 500 mg q48h, Saturday and Saturday 2. Continue medications for a-fib, HTN and hypothyroidism 3. Return to the ER if you experience any problems DISCHARGE CONDITION: Stable. TIME SPENT ON DISCHARGE: 30 minutes. Vital Signs/I&Os Vital Signs Date Time Temp Pulse Resp B/P (MAP) Pulse Ox O2 Delivery O2 Flow Rate FiO2 01/21/20 09:00 96 Room Air 01/21/20 08:00 97.2 83 16 158/80 (106) 01/21/20 07:00 1.0 I&O- Last 24 Hours up to 6 AM 01/21/20 06:00 Intake Total 940 ml Output Total 0 ml Balance 940 ml Laboratory Data Labs 24H Laboratory Tests 2 01/21/20 04:54: Nucleated Red Blood Cells % (auto) 0.0, Anion Gap 8, Glomerular Filtration Rate 8.6L, Calcium Level 7.9L, Hepatitis B Surface Antigen NEGATIVE CBC/BMP Laboratory Tests 01/21/20 04:54 Microbiology Microbiology 01/20/20 Urine Culture, Received Pending 01/19/20 Gram Stain - Final, Complete 01/19/20 Sputum Culture - Final, Complete 01/19/20 Blood Culture - Preliminary, Resulted No growth after 24 hours . All specim... 01/19/20 Blood Culture - Preliminary, Resulted No growth after 24 hours . All specim... Discharge Medications Scheduled Amitriptyline HCl (Amitriptyline HCl) 50 Mg Tablet, 50 MG PO QHS, (Reported) Amlodipine Besylate (Amlodipine Besylate) 10 Mg Tablet, 1 TAB PO DAILY Apixaban (Eliquis) 5 Mg Tablet, 5 MG PO BID Diltiazem Hcl (Cardizem Cd) 240 Mg Cap.er.24h, 1 CAP PO DAILY Ferric Citrate (Auryxia) 210 Mg Tab, 420 MG PO WM, (Reported) Gabapentin (Gabapentin) 300 Mg Cap, 300 MG PO QHS, (Reported) Levofloxacin (Levofloxacin) 500 Mg Tablet, 1 TAB PO Q48H Start on 01/23/2020 Levothyroxine Sodium (Synthroid) 175 Mcg Tab, 175 MCG PO DAILY, (Reported) Lidocaine/Prilocaine (Lidocaine-Prilocaine Cream) 2.5%/2.5% Cream..g., 1 DOSE TOP 3XW, (Reported) SATURDAY, SATURDAY AND SATURDAY PRIOR TO DIALYSIS Omeprazole (Omeprazole) 40 Mg Cap, 40 MG PO DAILY, (Reported) Scheduled PRN Fexofenadine HCl (Mali Allergy) 180 Mg Tab, 180 MG PO DAILY PRN for ALLERGIES, (Reported) Fluticasone Propionate (Flonase Allergy Relief) 50 Mcg/Act Spr, 1 SPRAY NA DAILY PRN for NASAL CONGESTION, (Reported) Polyethylene Glycol 3350 (Miralax) 17 Gm Powd.pack, 17 GM PO DAILY PRN for CONSTIPATION, (Reported) Allergies Coded Allergies: Ryan (Unverified Allergy, Severe, ANAPHYLAXIS, 07/16/17) FISH (Unverified Allergy, Severe, ANAPHYLAXIS, 01/28/17) TAPE (Verified Allergy, Mild, ADHESIVES-RASH AND REDNESS, 01/28/17) Contrast Media (Unverified Allergy, Unknown, PATIENT STATES SHE CAN TOLERATE PO, 01/28/17) FRUIT (Verified Allergy, Unknown, FRUIT WITH SKIN, 01/28/17) iodine (Verified Allergy, Unknown, 12/30/19) codeine (Verified Adverse Reaction, Mild, stomach upset, 01/19/20) GME ATTESTATION GME ATTESTATION My faculty preceptor for this patient encounter was physically present during the encounter and was fully available. All aspects of the patient interview, examination, medical decision making process, and medical care plan development were reviewed and approved by the faculty preceptor. The faculty preceptor is aware and concurs with the plan as stated in the body of this note and will attest to such by his/her cosignature. ATTENDING NOTE I, Jaycee Romero, have independently examined this patient and performed my own physical exam, as well as reviewed the documentation and edited where necessary. I have discussed in detail with the resident / student the findings and plan of treatment as documented by the resident / student and edited their note. I agree with their findings and treatment plan and have edited their documentation. I will continue to follow the patient during this hospital stay. Time spent on discharge 37 minutes DAPHNE CEBALLOS Jan 21, 2020 13:36 JAYCEE ROMERO MD Jan 22, 2020 07:49
[2020-01-21] MEDS ORDERED: **hydrALAZINE** 50 MG TAB PO SCH (14:00)
--- NOTE | 2020-01-21 14:36 | REPVR ---
PROCEDURE INFORMATION: Exam: XR Chest, 1 View Exam date and time: 01/21/2020 1:35 PM Age: 79 years old Clinical indication: Shortness of breath; Additional info: Right sided pleural effusion TECHNIQUE: Imaging protocol: XR of the chest Views: Frontal portable sitting upright view of the chest. COMPARISON: CT Chest without contrast 01/20/2020 11:45 AM FINDINGS: Tubes, catheters and devices: EKG leads are present overlying the chest. Lungs: Interval increase in left lower lung zone opacity which may represent atelectasis/consolidation, or increased previous loculated intra fissural fluid. The pulmonary vasculature is congested. Pleural space: No current right pleural effusion identified as imaged. No pneumothorax. Heart/Mediastinum: Mild cardiomegaly. Vasculature: Moderate aortic arch atherosclerotic calcification without ectasia. Bones/joints: Stable. Soft tissues: Medial left upper quadrant abdominal surgical clips. IMPRESSION: 1. Interval increase in left lower lung zone opacity which may represent atelectasis/consolidation, or increased previous loculated intra fissural fluid. 2. Pulmonary vascular congestion. 3. Left upper quadrant abdominal postsurgical changes. Electronically signed by: Kong Spring On 01/21/2020 14:36:06 PM
[2020-01-21] MEDS ORDERED: CARD240C5 PO (15:29)
[2020-01-21] MEDS ORDERED: AMLO1TAB25 PO (15:29)
[2020-01-21] MEDS ORDERED: LEVO500T3 PO (15:29)
[2020-01-21] MEDS ORDERED: LevoFLOXacin 750 MG TABLET PO ONE (15:45)
--- NOTE | 2020-01-22 08:01 | ECGEPIP ---
[facility] Test Date: 2020-01-19 Pat Name: DARCY FRENCH Department: Room: [place] [address] Gender: Female [place] Laboratory Assistant: KAYDEN : 1940 Requested By: DANAE PRADHAN Order Number: [id number] Reading MD: Jett Nagy Measurements Intervals Cos [place] Rate: 88 P: NH: 0 QRS: -25 QRSD: 148 T: -11 QT: 436 QTc: 528 Interpretive Statements Underlying atrial fibrillation with controlled ventricular response Right bundle branch block Left ventricle hypertrophy by Melquiades criteria Slower rate with less marked repolarization abnormality from earlier the same day Electronically Signed on 01-22-2020 8:01:18 EDT by Jett Nagy
--- NOTE | 2020-01-22 11:44 | IPN ---
DATE: 01/21/2020 SUBJECTIVE: Patient was seen and examined at the bedside today morning during hemodialysis procedure. She is tolerating the hemodialysis procedure well. She reports that her shortness of breath is getting better. Her leukocytosis is also improving with the antibiotics. OBJECTIVE: VITAL SIGNS: Temperature 98.1 degrees Fahrenheit, blood pressure 162/60, pulse 86, respiratory rate 16, saturating 96% on room air. INTAKE AND OUTPUT: There is no urine output recorded. Weight in the bed scale is 100.7 kg. PHYSICAL EXAMINATION: GENERAL: Patient is awake, alert and oriented x3, lying in bed getting hemodialysis done. HEAD AND NECK: Extraocular muscles intact. Pupils equally round and reactive to light. Mucous membranes are moist. Neck is supple. Mildly elevated JVD. CARDIOVASCULAR: S1, S2, regular rate. Trace edema of the bilateral lower extremities. RESPIRATORY: Mildly decreased breath sounds at the bases bilaterally; right is worse than left. ABDOMEN: Soft, positive bowel sounds, obese. I could not appreciate the organomegaly. MUSCULOSKELETAL: No clubbing or cyanosis. Pulses are 2+. BIOMEDICAL REPAIR TECHNICIAN: No focal deficit. Power is 5/5 in all extremities. LABORATORY REVIEW: CBC showed WBC 8.5, hemoglobin 9.4, platelets 239,000. BMP showed sodium 133, potassium 4.3, chloride 96, bicarb 29, BUN 49, creatinine 5.1. Calcium 7.9. MICROBIOLOGY: All the cultures are negative so far. CURRENT INPATIENT MEDICATIONS: Patient's medications were all reviewed by myself. She continues to be on I.V. Zosyn and I.V. Vancomycin. No other significant change in the medications today as compared with yesterday. ASSESSMENT AND PLAN: 1. End-stage renal disease: Patient is being dialyzed according to her regular schedule. Ultrafiltration goal is 3.5 liters at least as tolerated by her blood pressure. 2. Healthcare associated pneumonia: Patient's leukocytosis is getting better. She is on Vancomycin and Zosyn. She will be switched to Levaquin if she is discharged home. 3. Urinary tract infection: Patient had too numerous to count wbcs on urinalysis, urine final culture is pending. 4. Right-sided pleural effusion: Patient will get x-ray of the chest done after hemodialysis. If the pleural effusion is persistent, then we will have to hold Eliquis, switch her to Heparin, and then schedule her thoracentesis. 5. Atrial fibrillation with rapid ventricular rate: Continue Diltiazem and Eliquis. Heart rate is controlled. DISPOSITION: If patient's effusion improves after dialysis, then she can be discharged home on oral antibiotics. MTDD
--- NOTE | 2020-01-25 08:04 | ECHO ---
DATE OF PROCEDURE: 01/20/2020 Age: 79 Gender: Female Height: 67 inches Weight: 218 pounds Body surface area: 2.1 m2 PATIENT LOCATION: Inpatient, progressive care unit (PCU) Room 3211. REFERRING PHYSICIAN: Estrellita Ambrosio MD INDICATION: Abnormal EKG - atrial fibrillation. MEASUREMENTS: 2D Measurements: RV 4.4 cm LV 4.8 cm Septum 1.3 cm Posterior wall 1.2 cm Aortic Root 3.6 cm LA 4.2 cm LVEF 65-70% Doppler Measurements: AV 2.25 m/s LVOT 1.1 m/s Mean AV gradient 10 mmHg Dimensionless index 0.46 MV-E 123 Early mitral deceleration time 222 m/s E prime medial 7.9, E prime lateral 9.5 Average E/E prime ratio 14.1/PCWP 19.4 mmHg PV 0.95 m/s Pulmonary artery acceleration time 85 m/s RVSP 43 mmHg IVC 1.9 cm COMMENTS: Underlying atrial fibrillation with currently controlled ventricular response. Right bundle branch block. M-mode and two-dimensional echocardiography was performed with pulse, continuous wave, color flow, and tissue Doppler studies. Mild concentric left ventricular hypertrophy with septal wall motion abnormality believed to be related to right ventricular pressure overload, but preserved global resting left ventricular systolic function. Mildly dilated left atrium with current estimated mean left atrial pressure at least mildly increased. Mild to moderately dilated right heart chambers with normal right ventricular free wall motion and Doppler evidence of at least moderate pulmonary hypertension. Inferior vena cava (IVC) size upper limits of normal with slightly reduced respiratory collapse suggestive of an elevated central venous pressure. Normal aortic dimensions. Mild calcific aortic stenosis with mild insufficiency. Moderate mitral annular calcification with some thickening of the mitral leaflets, but no left ventricular (LV) inflow tract obstruction and only very mild insufficiency. Normal appearing tricuspid valve with moderate insufficiency. No apparent intracardiac mass or pericardial effusion. MTDD
== END 2020-01-21 17:29 | disposition home health service (06) | DRG 193 ==
LOC: EDBD 11:59 → M ED 11:59 → M ED INP 16:13 → ENRESERV 16:24 → M PCU 17:24
PROVIDERS: ADMIT Internal Medicine; ATTEND Internal Medicine
DX: J18.9 Pneumonia, unspecified organism (principal); N18.6 End stage renal disease; N39.0 Urinary tract infection, site not specified; I12.0 Hypertensive chronic kidney disease with stage 5 chronic kidney disease or end stage renal disease; I48.91 Unspecified atrial fibrillation; E03.9 Hypothyroidism, unspecified; Z79.899 Other long term (current) drug therapy; Z91.018 Allergy to other foods; Z91.013 Allergy to seafood; Z91.041 Radiographic dye allergy status; Z88.5 Allergy status to narcotic agent; K21.9 Gastro-esophageal reflux disease without esophagitis; G62.9 Polyneuropathy, unspecified; K59.00 Constipation, unspecified

== ENCOUNTER → 2020-04-13 | Outpatient (REF) | payer MEDICARE, OTHER ==
[~2020-04-13] MED LIST changes: -BUPR150T3 PO; +BUPR150T4 PO; +CARD240C5 PO; +DILT180C70 PO; +GABA-282 PO; -GABA-843 PO; +LEVO500T3 PO
== END ==
LOC: M LAB REF 16:46
PROVIDERS: ATTEND Nurse Practitioner Family
DX: N39.0 Urinary tract infection, site not specified (principal)

== ENCOUNTER 2020-04-26 10:52 | Inpatient (IN) | payer MEDICARE, OTHER ==
[~2020-04-26] VITALS: Ht 170.2 cm; Wt 104.3 kg
[2020-04-26] MEDS ORDERED: AMLO1TAB24 (11:27)
[2020-04-26] MEDS ORDERED: DILT240C83 PO (11:27)
[2020-04-26] MEDS ORDERED: HYDR-3911 (11:27)
[2020-04-26] MEDS ORDERED: AURY1TAB PO ×2 (11:27→15:43)
--- NOTE | 2020-04-26 11:48 | REP ---
INDICATION: Syncope. COMPARISON: Comparison head CT study May 21, 2018.. TECHNIQUE: Helical scanning is acquired. 5 mm axial images were reformatted. Coronal MPR images were generated. FINDINGS: Preliminary digital accounting manager controller radiograph is unremarkable. Bone window settings demonstrate intact bony calvarium. There is vascular calcification in the distal internal carotid arteries bilaterally. The visualized paranasal sinuses are clear. No intraorbital abnormality is seen. On soft tissue window settings, there is mild generalized volume loss. There is low-density consistent with an old lacunar infarct in the right frontal lobe adjacent to the basal ganglia unchanged from the and [id number] prior study. Mild small vessel changes are noted. No new infarction is seen. No intracranial hemorrhage is observed. There is no evidence of mass or extra-axial fluid collection. IMPRESSION: Generalized volume loss. Old lacunar infarct right frontal lobe unchanged. Small vessel changes. No acute intracranial abnormality.. <Electronically signed by Gage Fuentes > 04/26/20 [id number]
[2020-04-26 11:51] LABS: BASO % 0.3 % (0.0-1.0); EOS # 0.1 10^3/uL (0.0-0.5); EOS % 1.5 % (0.0-3.0); HEMATOCRIT 36.1 % (36.0-47.0); HEMOGLOBIN 11.5 g/dl (12.0-15.5); LYMPH # 0.4 10^3/uL (1.5-5.0); MEAN CORPUSCULAR HEMOGLOBIN 31.9 pg (27.0-33.0); MEAN CORPUSCULAR HGB CONC 31.9 g/dl (32.0-36.5); MONO # 0.3 10^3/uL (0.0-0.8); MONO % 5.7 % (0.0-5.0); NEUTROPHILS # 5.2 10^3/uL (1.5-8.5); PLATELET COUNT, AUTOMATED 252 10^3/uL (150-450); RED BLOOD COUNT 3.61 10^6/uL (4.00-5.40)
[2020-04-26 12:05] LABS: INR 1.27; PROTHROMBIN TIME 16.2 SECONDS (12.5-14.3)
[2020-04-26 12:29] LABS: CALCIUM LEVEL 8.8 MG/DL (8.8-10.2); CREATININE FOR GFR 2.91 MG/DL (0.55-1.30); GLOMERULAR FILTRATION RATE 16.7 (>39); MAGNESIUM LEVEL 2.5 MG/DL (1.8-2.4); MB/CK RELATIVE INDEX 4.55 (< OR =4); POTASSIUM SERUM 4.1 MEQ/L (3.5-5.1); TROPONIN I 0.04 NG/ML (< 0.10)
[2020-04-26] MEDS ORDERED: ACETAMINOPHEN 325 MG TAB PO ONE (12:30)
[2020-04-26 12:49] LABS: RSV AMPLIFICATION NEGATIVE (NEGATIVE)
--- NOTE | 2020-04-26 14:04 | HPEPDOC ---
[facility] Medical History & Physical Date of Admission Apr 26, 2020 Date of Service: Apr 26, 2020 Attending Physician: Vickie Hernanedz MD History and Physical CHIEF COMPLAINT: confusion HISTORY OF PRESENT ILLNESS: Patient is a 79 y/o F with PMH of atrial fibrillation on AC, HTN, ESRD on HD (, , Sat), GERD, hx of lacunar infarct, hypothyroidism, peripheral neuropathy who presented to [facility] ER sent from hemodialysis clinic for increased altered mental status. Patient was not a great historian as she was confused at times. She was awake, lethargic but oriented x 2 (self and place). Per patient's , he confusion has been worsening over the past 6 months . No prior diagnosis of dementia. She has been "falling" at home and sliding out of the bed onto the floor per , happened 3 times. He also states that 2 times. He states that she has been slurring words for approximately several months, fine motor skills and coordination has gotten worse. Walking and moving around is little impacted. Symptoms are worsened on days that she has dialysis, family states that. The family went out to dinner last night, slightly unstable with cane but was coherent, not slurring speech at all. States she ate well, had a good times. Patient's family told me that patient reported "losing a period of time" , felt like she "blacked out" and couldn't remember 40 mins of her night. Patient's family never saw any signs or symptoms of stroke including facial drooping, unilateral arm weakness, drooling. In the ER, VS were stable. CT head: Generalized volume loss, old lacunar infarct right frontal lobe unchanged, small vessel changes, no acute intracranial abnormality. Cr 2.9, near baseline. Other labs essentially unremarkable, trop neg. FLU, COVID neg. UA, BCx, CXR pending. Discussed case with Dr. Calvin. Patient will be admitted for altered mental status, r/o infection vs. neurol ogical cause. REVIEW OF SYSTEMS: Neg except mentioned above PMHx: A. 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 Bilateral kidney stone, removed. Bilateral breast benign nodule removed. Hysterectomy Cholecystectomy Appendectomy FHx: Mother: DM type II. at 88 y/o Father: Kidney problems. in 60's. SOCIALHx: Denies smoking, drug use. Social alcohol use, 20-30 ounces alcohol daily (red wine). At baseline can use cane and walker. She is a full code. ALLERGIES: Please see below. HOME MEDICATIONS: Please see below. PHYSICAL EXAMINATION: VS: Please see below CONSTITUTIONAL: No acute distress, lethargic, AAO x 2 EYES: PERRLA, EOM intact HENT, MOUTH: Normocephalic, atraumatic, moist mucous membranes NECK: SUPPLE, no JVD, no lymphadenopathy, no carotid bruit CV: irregularly irregular, tachycardic. no murmurs/rubs/gallops RESPIRATORY: Clear to auscultation bilaterally, no rales/rhonchi/wheezes GI: BS positive in 4 quadrants, soft, nontender, nondistended, no rebound or guarding, no organomegaly : Deferred MUSCULOSKELETAL: Normal ROM. No cyanosis, clubbing, swelling, joint deformity. extremity edema +1 pitting in b/l lower ext INTEGUMENTARY: Intact, no rashes, no lesions, no erythema NEUROLOGIC: General weakness, 4/5 of LLE, LUE and RUE.3/5 weakness of RLE. Cranial Nerves II-XII are intact, no focal deficits LABORATORY DATA: Please see below IMAGING: CXR pending MRI, ECHOcardiogram pending CT head: Generalized volume loss. Old lacunar infarct right frontal lobe unchanged. Small vessel changes. No acute intracranial abnormality.. ASSESSMENT: 79 y/o F with PMH atrial fibrillation on AC, HTN, ESRD on HD (, , Sat), GERD, hx of lacunar infarct, hypothyroidism, peripheral neuropathy admitted for altered mental status, r/o infection vs. neurological cause. PLAN: Altered mental status, r/o infection vs. neurological cause -Per family, months of worsening confusion, particularly on HD days -Episode of "blacking out" that patient complained to family about, "Lost time" in her day -Hx of lacunar infarct on CT head-old, many RF for stoke -Flu, COVID neg -Will f/u BCx x 2 sets, CXR, UA, carotid doppler, MRI, echocardiogram -Daily labs -Tele A. fib (on Anticoagulation with Xarelto) -HR slightly elevated at 110-112 in ER, denies chest pain or palpitations, shortness of breath -C/w diltiazem, apixaban HTN -STable -C/w home med ESRD on HD (TTS) -Cr at baseline -Nephrology consulted, Dr. Calvin Hypothyroidism -F/u TSH -C/w synthroid Mood disorder -C/w home meds Peripheral neuropathy -C/w gabapentin GERD -C/w PPI Hx of lacular infarct/ CVA on CT head -F/u statin, HbA1c -not on ASA or statin med DVT px -Apixaban DISPOSITION: Admitted under acute inpatient. PT/OT. Discussed case with both patient's Bridance and son Brock Romero. Plan is home when medically improved. Vital Signs Vital Signs Date Time Temp Pulse Resp B/P (MAP) Pulse Ox O2 Delivery O2 Flow Rate FiO2 04/26/20 12:44 110 143/89 (107) 110 157/98 (117) 04/26/20 10:54 97.3 18 97 Room Air Laboratory Data Labs 24H Laboratory Tests 2 04/26/20 11:18: Immature Granulocyte % (Auto) 0.5, Neutrophils (%) (Auto) 86.0H, Lymphocytes (%) (Auto) 6.0L, Monocytes (%) (Auto) 5.7H, Eosinophils (%) (Auto) 1.5, Basophils (%) (Auto) 0.3, Neutrophils # (Auto) 5.2, Lymphocytes # (Auto) 0.4L, Monocytes # (Auto) 0.3, Eosinophils # (Auto) 0.1, Basophils # (Auto) 0.0, Nucleated Red Blood Cells % (auto) 0.0, Prothrombin Time 16.2H, Prothromb Time International Ratio 1.27, Anion Gap 7L, Glomerular Filtration Rate 16.7L, Calcium Level 8.8, Magnesium Level 2.5H, Total Creatine Kinase 44, Creatine Kinase MB 2.0, Creatine Kinase MB Relative Index 4.55H, Troponin I 0.04 04/26/20 12:00: Coronavirus (COVID-19)(PCR) NEGATIVE, Influenza Type A (RT-PCR) NEGATIVE, Influenza Type B (RT-PCR) NEGATIVE, Respiratory Syncytial Virus (PCR) NEGATIVE CBC/BMP Laboratory Tests 04/26/20 11:18 Home Medications Scheduled Amitriptyline HCl (Amitriptyline HCl) 50 Mg Tablet, 50 MG PO QHS Apixaban (Eliquis) 5 Mg Tablet, 5 MG PO BID Ferric Citrate (Auryxia) 210 Mg Tablet, 3 TAB PO TID Gabapentin (Gabapentin) 300 Mg Cap, 300 MG PO QHS Levothyroxine Sodium (Synthroid) 175 Mcg Tab, 175 MCG PO DAILY Lidocaine/Prilocaine (Lidocaine-Prilocaine Cream) 2.5%/2.5% Cream..g., 1 DOSE TOP 3XW SATURDAY, SATURDAY AND SATURDAY PRIOR TO DIALYSIS Omeprazole (Omeprazole) 40 Mg Cap, 40 MG PO DAILY Scheduled PRN Fexofenadine HCl (Mali Allergy) 180 Mg Tab, 180 MG PO DAILY PRN for ALLERGIES Fluticasone Propionate (Flonase Allergy Relief) 50 Mcg/Act Spr, 1 SPRAY NA DAILY PRN for NASAL CONGESTION Polyethylene Glycol 3350 (Miralax) 17 Gm Powd.pack, 17 GM PO DAILY PRN for CONSTIPATION Miscellaneous Medications Amlodipine Besylate (Amlodipine Besylate) 5 Mg Tablet Hydralazine HCl (Hydralazine HCl) 50 Mg Tablet dilTIAZem HCl (Diltiazem 24Hr Cd) 240 Mg Cap.er.24h Allergies Coded Allergies: Ryan (Unverified Allergy, Severe, ANAPHYLAXIS, 07/16/17) FISH (Unverified Allergy, Severe, ANAPHYLAXIS, 01/28/17) TAPE (Verified Allergy, Mild, ADHESIVES-RASH AND REDNESS, 01/28/17) Contrast Media (Verified Allergy, Unknown, PATIENT STATES SHE CAN TOLERATE PO, 04/26/20) FRUIT (Verified Allergy, Unknown, FRUIT WITH fuzzy SKIN, 04/26/20) iodine (Verified Allergy, Unknown, 12/30/19) codeine (Verified Adverse Reaction, Mild, stomach upset, 01/19/20) A-FIB/CHADSVASC A-FIB History Current/History of A-Fib/PAF?: Yes Current PO Anticoag Therapy: Yes Age/Risk Factor Scoring CHADSVASC: CHADSVASC Response (Comments) Value Age Risk Factor Age >/= 75 years old 2 Gender Risk Factor Female 1 Hx of CHF No 0 Hx of HTN Yes 1 Hx of Stroke/TIA/or VTE Yes 2 Hx of Diabetes No 0 Hx of Vascular Disease Yes 1 Total 7 Treatment Treatment ordered: Other Other anticoagulant ordered: Vickie Oconnor MD Apr 26, 2020 14:03
--- NOTE | 2020-04-26 15:04 | REP ---
INDICATION: cough, AMS. COMPARISON: Comparison chest x-ray January 21, 2020. TECHNIQUE: Two views.. FINDINGS: Right hemidiaphragm remains elevated. There is hazy opacity in the left perihilar region consistent with infiltrate. This was not observed previously. Pleural angles are sharp. Cardiomegaly is observed unchanged. There clips in the left upper abdomen. Vascular cephalization and congestion is observed. IMPRESSION: Elevated right hemidiaphragm. Hazy opacity in the left perihilar region consistent with a inflammatory infiltrate/pneumonia. Cardiomegaly. Vascular congestion.. <Electronically signed by Gage Fuentes > 04/26/20 1500
[2020-04-26] MEDS ORDERED: ZINC220T6 PO (15:43)
[2020-04-26] MEDS ORDERED: CO Q200C10 PO (15:43)
[2020-04-26] MEDS ORDERED: RA M10TA PO (15:43)
[2020-04-26] MEDS ORDERED: D31000TA2 PO (15:43)
[2020-04-26] MEDS ORDERED: ELIQ5TAB PO (15:43)
[2020-04-26] MEDS ORDERED: VITMTA PO (15:43)
[2020-04-26 16:27] VITALS: BP 123/69
[2020-04-26] MEDS: CEFEPIME HCL 1 GM in D5W MINI-BAG PLUS 50 ML IV SCH (19:32)
--- NOTE | 2020-04-26 19:58 | REPVR ---
PROCEDURE INFORMATION: Exam: MR Head Without Contrast Exam date and time: 04/26/2020 7:11 PM Age: 79 years old Clinical indication: Altered mental status/memory loss; Age related cognitive decline; Additional info: AMS, weakness TECHNIQUE: Imaging protocol: MR of the head without contrast. COMPARISON: CT Head without contrast 04/26/2020 11:25 AM FINDINGS: Brain: There is hyperintense signal in the periventricular white matter. There are numerous additional hyperintense foci scattered throughout the white matter. The appearance is nonspecific but is most likely to represent chronic microvascular disease. There is an old right frontal white matter infarct. There are additional small old lacunar infarcts. DWI demonstrates no evidence of acute infarct. Gradient echo images demonstrate no evidence of hemorrhage. There is no extra-axial collection. There is no mass. There are no abnormal flow voids. Cerebral ventricles: There is no hydrocephalus. Bones/joints: Unremarkable. Paranasal sinuses: There is ethmoid sinus mucosal thickening. No air-fluid levels. Mastoid air cells: There is a small amount of fluid in the left mastoids. Orbital cavity: Unremarkable. Soft tissues: Unremarkable. IMPRESSION: 1. Moderate chronic microvascular disease with small old lacunar infarcts.. 2. No acute intracranial lesion or injury. Electronically signed by: Raul Gracia On 04/26/2020 19:57:08 PM
[2020-04-26] MEDS ORDERED: VANCOMYCIN HCL 1,000 MG, VIAL MATE ADAPTER 1 EACH in D5W 250 ML IV SCH (20:00)
[2020-04-26] MEDS ORDERED: MIRALAX *UNIT DOSE* 17GM PACKET PO PRN (20:45)
[2020-04-26] MEDS ORDERED: FLUTICASONE PROP 0.05% NASAL SPRAY 16 GM (FLONASE) PRN (20:45)
[2020-04-26] MEDS ORDERED: VANCOMYCIN HCL 500 MG in D5W MINI-BAG PLUS 100 ML IV ONE (21:00)
[2020-04-26] MEDS: APIXABAN 5 MG TAB (ELIQUIS) PO SCH (21:38)
[2020-04-26] MEDS: GABAPENTIN 300 MG CAP PO SCH (21:38)
[2020-04-26] MEDS: VITAMIN D 1,000 INTERNATIONAL UNITS TABLET PO SCH (21:38)
[2020-04-26] MEDS: AMITRIPTYLINE 50 MG TAB PO SCH (21:38)
[2020-04-26 22:00] VITALS: BP 139/89
[2020-04-26] MEDS: ZINC SULFATE 220 MG CAP PO SCH (22:18)
--- NOTE | 2020-04-26 23:23 | REPVR ---
PROCEDURE INFORMATION: Exam: US Duplex Bilateral Extracranial Arteries Exam date and time: 04/26/2020 11:07 PM Age: 79 years old Clinical indication: Syncope and collapse TECHNIQUE: Imaging protocol: Real-time Duplex ultrasound scan of the bilateral carotid and vertebral arteries combining clark scale, color Doppler and spectral waveform analysis. Bilateral exam. COMPARISON: CT Head without contrast 04/26/2020 11:25 AM FINDINGS: Right common carotid artery: Plaque with peak systolic velocity of 64 cm/s. Right internal carotid artery: Plaque with peak systolic velocity of 177 cm/s. Right ICA/CCA ratio: 2.8, moderately elevated. Right external carotid artery: No stenosis in the origin. Peak systolic velocity of 73 cm/s. Right vertebral artery: Unremarkable. Antegrade flow. Left common carotid artery: Plaque With peak systolic velocity of 60 cm/s. Left internal carotid artery: Plaque with peak systolic velocity of 143 cm/s. The left internal carotid artery is tortuous. Left ICA/CCA ratio: 2.4, moderately elevated. Left external carotid artery: No stenosis in the origin. Peak systolic velocity of 79 cm/s. Left vertebral artery: Unremarkable. Antegrade flow. IMPRESSION: Moderate, 50-69%, stenosis of the right internal carotid artery. Moderate, 50-69%, stenosis of the left internal carotid artery. REFERENCES: SRU CRITERIA. The degree of internal carotid artery stenosis is based on criteria defined by the Society of Radiologists in Ultrasound (SRU). Normal is no stenosis. Mild is less than 50% stenosis. Moderate is 50-69% stenosis. Severe is greater than 69% stenosis to near occlusion. Near occlusion is a markedly narrowed lumen. Total occlusion is no detectable patent lumen. Electronically signed by: Raul Gracia On 04/26/2020 23:22:33 PM
[2020-04-27] MEDS: ACETAMINOPHEN TAB 650MG DOSE (2X325MG) PO PRN (01:57)
[2020-04-27 06:00] VITALS: BP 138/89
[2020-04-27] MEDS: LEVOTHYROXINE 100MCG TABLET (0.1MG) PO SCH (06:06)
[2020-04-27] MEDS: LEVOTHYROXINE 75MCG TABLET (0.075MG) PO SCH (06:06)
[2020-04-27] MEDS: CEFEPIME HCL 1 GM in D5W MINI-BAG PLUS 50 ML IV SCH ×2 (06:06→18:27)
[2020-04-27 08:04] LABS: HEMATOCRIT 37.1 % (36.0-47.0); HEMOGLOBIN 11.3 g/dl (12.0-15.5); MEAN CORPUSCULAR HGB CONC 30.5 g/dl (32.0-36.5); MEAN CORPUSCULAR VOLUME 101.9 fl (80.0-96.0); PLATELET COUNT, AUTOMATED 274 10^3/uL (150-450); RED BLOOD COUNT 3.64 10^6/uL (4.00-5.40); WHITE BLOOD COUNT 7.3 10^3/uL (4.0-10.0)
[2020-04-27 08:24] LABS: ALBUMIN 2.9 GM/DL (3.2-5.2); BILIRUBIN,TOTAL 0.4 MG/DL (0.2-1.0); CALCIUM LEVEL 8.5 MG/DL (8.8-10.2); CREATININE FOR GFR 3.61 MG/DL (0.55-1.30); POTASSIUM SERUM 4.7 MEQ/L (3.5-5.1); TOTAL PROTEIN 6.7 GM/DL (6.4-8.2)
[2020-04-27] MEDS ORDERED: VANCOMYCIN HCL 1,000 MG, VIAL MATE ADAPTER 1 EACH in D5W 250 ML IV SCH (09:00)
[2020-04-27] MEDS: NYSTATIN 100,000 UNITS/GM TOPICAL PWD 15 GM TOP SCH (11:27)
[2020-04-27] MEDS: MULTIVITAMINS/MINERALS THERAP 1 TAB PO SCH (11:28)
[2020-04-27] MEDS: VITAMIN D 1,000 INTERNATIONAL UNITS TABLET PO SCH ×2 (11:28→20:22)
[2020-04-27] MEDS: ZINC SULFATE 220 MG CAP PO SCH ×2 (11:28→20:22)
[2020-04-27] MEDS: APIXABAN 5 MG TAB (ELIQUIS) PO SCH ×2 (11:30→20:22)
[2020-04-27] MEDS: OMEPRAZOLE 20 MG CAP PO SCH (11:30)
[2020-04-27 14:00] VITALS: BP 144/87
--- NOTE | 2020-04-27 14:39 | ECGEPIP ---
[facility] - ED Test Date: 2020-04-26 Pat Name: DARCY FRENCH Department: Room: - Gender: Female [employer]: : 1940 Requested By: JAYASHREE Guerra PA-C Order Number: [id number] Reading MD: Angelica Wen Measurements Intervals [place] Rate: 91 P: CA: 0 QRS: -37 QRSD: 161 T: 6 QT: 415 QTc: 513 Interpretive Statements ATRIAL FIBRILLATION MARKED LEFT AXIS DEVIATION RIGHT BUNDLE BRANCH BLOCK MODERATE VOLTAGE CRITERIA FOR LVH, CONSIDER NORMAL VARIANT SIMILAR 01/19/20 Electronically Signed on 04-27-2020 14:38:46 EST by Angelica Wen
--- NOTE | 2020-04-27 15:01 | IPNPDOC ---
Date Seen The patient was seen on 04/27/20. Progress Note SUBJECTIVE: AAOx3, much improved. Echo done, results pending. Vascular called, evaluated carotid doppler, recommend f/u o/p in 6 months. She denies chest pain, n/v/d, shortness of breath OBJECTIVE: PHYSICAL EXAMINATION: VS: Please see below CONSTITUTIONAL: No acute distress, AAO x 3 EYES: PERRLA, EOM intact HENT, MOUTH: Normocephalic, atraumatic, moist mucous membranes NECK: SUPPLE, no JVD, no lymphadenopathy, no carotid bruit CV: irregularly irregular, tachycardic. no murmurs/rubs/gallops RESPIRATORY: Clear to auscultation bilaterally, no rales/rhonchi/wheezes GI: BS positive in 4 quadrants, soft, nontender, nondistended, no rebound or guarding, no organomegaly : Deferred MUSCULOSKELETAL: Normal ROM. No cyanosis, clubbing, swelling, joint deformity. extremity edema +1 pitting in b/l lower ext INTEGUMENTARY: Intact, no rashes, no lesions, no erythema NEUROLOGIC: General weakness, 4/5 of LLE, LUE and RUE.3/5 weakness of RLE. Cranial Nerves II-XII are intact, no focal deficits LABORATORY DATA: Please see below MICRO: BCx x 2 sets: pending UA + but UCx contaminated IMAGING: CXR: Elevated right hemidiaphragm. Hazy opacity in the left perihilar region consis tent with a inflammatory infiltrate/pneumonia. Cardiomegaly. Vascular congestion. MRI brain: 1. Moderate chronic microvascular disease with small old lacunar infarcts.. 2. No acute intracranial lesion or injury. ECHOcardiogram: pending CT head: Generalized volume loss. Old lacunar infarct right frontal lobe unchanged. Small vessel changes. No acute intracranial abnormality.. ASSESSMENT: 79 y/o F with PMH atrial fibrillation on AC, HTN, ESRD on HD (, , Sat), GERD, hx of lacunar infarct, hypothyroidism, peripheral neuropathy admitted for altered mental status, r/o infection vs. neurological cause. PLAN: Altered mental status, r/o infection vs. neurological cause (syncope?) -Per family, months of worsening confusion, particularly on HD days after sessions -Episode of "blacking out" that patient complained to family about, "Lost time" in her day -Hx of lacunar infarct on CT head-old, many RF for stoke -Flu, COVID neg -CXR above: neg -UA + but NG on Ucx, repeating today -Carotid doppler shows mod stenosis- to f/u with vascular in 6 months as o/p -Echo pending -Daily labs -neg neuro checks Atrial fibrillation with RVR -HR remains slightly elevated , denies chest pain or palpitations, shortness of breath -Increased diltiazem today, c/w apixaban Opacity in the left perihilar region, inflammatory infiltrate/HCAP? vs. pulmonary vascular congestion 2/2 to CHF exacerbation -Currently 98% on RA, crackles b/l posterior lower lung raines, lower ext swe lling -CXR above -BNP 55474. In 12/2019 BNP was elevated from 20K-40K , so possibly chronically elevated with her being dialysis patient -F/u echocardiogram -Currently on HCAP coverage with cefepime, d/kanchan vancomycin due to MRSA neg . -Not on lasix due to ESRD, c/w HD Hx of falls -At baseline uses device -PT: Patient is safe for d/c from a mobility standpoint when medically appropriate. She reports difficulty raising her RLE into bed and into a car, she would benefit from home PT. -C/w PT/OT while here HTN -STable -C/w home med ESRD on HD (TTS) -Cr at baseline -Nephrology consulted, Dr. Calvin Hypothyroidism -F/u TSH -C/w synthroid Mood disorder -C/w home meds Peripheral neuropathy -C/w gabapentin GERD -C/w PPI Hx of lacular infarct/ CVA on CT head -F/u lipid panel , HbA1c -not on ASA or statin med DVT px -Apixaban DISPOSITION: Admitted under acute inpatient. PT/OT. Discussed case with both patient's Bridance and son Brock Romero. Plan is home when medically improved and likely with services . VS, I&O, 24H, Fishbone Vital Signs/I&O Vital Signs Date Time Temp Pulse Resp B/P (MAP) Pulse Ox O2 Delivery O2 Flow Rate FiO2 04/27/20 14:00 97.6 133 17 144/87 (106) 98 Room Air I&O- Last 24 Hours up to 6 AM 04/27/20 06:00 Intake Total 1190 ml Output Total 10 ml Balance 1180 ml Laboratory Data 24H LABS Laboratory Tests 2 04/26/20 18:19: Methicillin-Resist S.aureus DNA PCR NOT DETECTED 04/26/20 18:20: Urine Color RYLIE, Urine Appearance CLOUDYH, Urine pH 5.0, Urine Specific [place] 1.017, Urine Protein 3+H, Urine Glucose (UA) NEGATIVE, Urine Ketones NEGATIVE, Urine Blood NEGATIVE, Urine Nitrite NEGATIVE, Urine Bilirubin 1+H, Urine Urobilinogen 0.2, Urine Leukocyte Esterase 2+H, Urine WBC (Auto) 157H, Urine RBC (Auto) 6H, Urine Hyaline Casts (Auto) 3, Urine Bacteria (Auto) 1+H, Urine Squamous Epithelial Cells 67, Urine Mucus (Auto) MODERATE, Urine Sperm (Auto) 04/27/20 07:23: Nucleated Red Blood Cells % (auto) 0.0, Anion Gap 10, Glomerular Filtration Rate 13.0L, Calcium Level 8.5L, Total Bilirubin 0.4, Aspartate Amino Transf (AST/SGOT) 11, Alanine Aminotransferase (ALT/SGPT) 15, Alkaline Phosphatase 139H, Total Protein 6.7, Albumin 2.9L, Albumin/Globulin Ratio 0.8L CBC/BMP Laboratory Tests 04/27/20 07:23 Microbiology Microbiology 04/26/20 Urine Culture - Final, Complete 04/26/20 Blood Culture, Received Pending 04/26/20 Blood Culture, Received Pending Current Medications Current Medications Medications (Trade) Dose Ordered Sig/So Route PRN Reason Start Time Stop Time Status Last Admin Dose Admin Acetaminophen (Tylenol Tab) 650 mg Q6HP PRN PO PAIN / FEVER 04/27/20 01:45 04/27/20 01:57 Amitriptyline HCl (Elavil) 50 mg QHS PO 04/26/20 21:00 04/26/20 21:38 Apixaban (Eliquis) 5 mg BID PO 04/26/20 21:00 04/27/20 11:30 Cefepime HCl 1 gm/ Dextrose 50 ml @ 100 mls/hr Q12H IV 04/26/20 18:00 04/27/20 06:06 Diltiazem HCl (Cardizem Cd) 240 mg DAILY PO 04/27/20 09:00 04/27/20 11:30 Fluticasone Propionate (Flonase 0.05% Nasal [place]) 1 spray DAILY PRN NA NASAL CONGESTION 04/26/20 20:45 Gabapentin (Neurontin) 300 mg QHS PO 04/26/20 21:00 04/26/20 21:38 Home Med (Med Rec Complete!) ASDIRECTED XX 04/26/20 15:45 04/26/20 16:02 DC Levothyroxine Sodium (Synthroid) 75 mcg DAILY@06 PO 04/27/20 06:00 04/27/20 06:06 Levothyroxine Sodium (Synthroid) 100 mcg DAILY@06 PO 04/27/20 06:00 04/27/20 06:06 Multivitamins (Theragram-M) 1 tab DAILY PO 04/27/20 09:00 04/27/20 11:28 Non-Formulary Medication ( See Comment Field Below ) CHECK TO SEE IF THE PATIENT... DAILY@1600 XX 04/27/20 16:00 04/27/20 08:06 DC Nystatin (Mycostatin Powder, Nystop) apply to affect areas... DAILY TOP 04/27/20 09:00 04/27/20 11:27 Omeprazole (PriLOSEC) 40 mg DAILY PO 04/27/20 09:00 04/27/20 11:30 Polyethylene Glycol (Miralax) 1 pkt DAILY PRN PO CONSTIPATION 04/26/20 20:45 Vancomycin HCl 1000 mg/IV Miscellaneous Supplies 1 each/ Dextrose 270 ml @ 270 mls/hr HD IV 04/27/20 09:00 04/27/20 08:06 DC Vancomycin HCl 1000 mg/IV Miscellaneous Supplies 1 each/ Dextrose 270 ml @ 270 mls/hr Q24H IV 04/26/20 20:00 04/26/20 23:59 DC 04/26/20 20:31 Vitamin D (Vitamin D) 5,000 units BID PO 04/26/20 21:00 04/27/20 11:28 Zinc Sulfate (Zinc Sulfate) 220 mg BID PO 04/26/20 21:00 04/27/20 11:28 Allergies Coded Allergies: Ryan (Unverified Allergy, Severe, ANAPHYLAXIS, 07/16/17) FISH (Unverified Allergy, Severe, ANAPHYLAXIS, 01/28/17) TAPE (Verified Allergy, Mild, ADHESIVES-RASH AND REDNESS, 01/28/17) Contrast Media (Verified Allergy, Unknown, PATIENT STATES SHE CAN TOLERATE PO, 04/26/20) FRUIT (Verified Allergy, Unknown, FRUIT WITH fuzzy SKIN, 04/26/20) iodine (Verified Allergy, Unknown, 12/30/19) codeine (Verified Adverse Reaction, Mild, stomach upset, 01/19/20) Vickie Hernandez MD Apr 27, 2020 15:01
[2020-04-27 15:28] LABS: CHOLESTEROL RISK RATIO 2.816 (<5); THYROID STIMULATING HORMONE 8.21 uIU/ML (0.358-3.740)
[2020-04-27 15:56] LABS: HEMOGLOBIN A1c 5.6 %
[2020-04-27] MEDS ORDERED: **VANCO AFTER HD** MISC XX SCH (16:00)
[2020-04-27] MEDS: AMITRIPTYLINE 50 MG TAB PO SCH (20:21)
[2020-04-27] MEDS: GABAPENTIN 300 MG CAP PO SCH (20:21)
--- NOTE | 2020-04-27 20:50 | CR ---
NEPHROLOGY CONSULTATION DATE: 04/27/2020 REASON FOR CONSULTATION: To assist in the management of end-stage renal disease. HISTORY OF PRESENT ILLNESS: Mrs. Romero is a 79-year-old female with known history of multiple medical problems, including end-stage renal disease, hypertension, prior strokes, hyperthyroidism and peripheral neuropathy. She was admitted to [facility] last evening due to syncope and altered mentation. She did complete her dialysis treatment prior to this episode. Apparently, she had been falling at home and this has been going on for a while. Workup is in progress. Nephrology consultation was requested for need for dialysis and patient is seen this morning. PAST MEDICAL HISTORY: Significant for: 1. History of end-stage renal disease secondary to polycystic kidneys. 2. Hypertension. 3. Hypothyroidism. 4. History of gastroesophageal reflux disease. 5. Atrial fibrillation. 6. History of prior strokes with lacunar infarctions. 7. Anemia of chronic kidney disease. 8. History of chronic back pain and degenerative arthritis. 9. History of recurrent urinary tract infections (UTIs). PAST SURGICAL HISTORY: Significant for: 1. Gastric bypass surgery back in 1977. 2. Bilateral kidney stones. 3. History of bilateral benign breast nodules removed. 4. Hysterectomy. 5. Cholecystectomy. 6. Appendectomy. 7. Arteriovenous (AV) fistula surgery. FAMILY HISTORY: Significant for polycystic kidney disease. PERSONAL AND SOCIAL HISTORY: The patient is and lives with her . She denies any tobacco or drug use. She drinks alcohol socially. REVIEW OF SYSTEMS: Patient had a syncopal episode and she was altered after dialysis. Apparently, she had a large weight gain and did not tolerate fluid removal very well. She did not have any fever or chills. Prior to this, she had recurrent falls at home. EARS, NOSE AND THROAT: Unremarkable. CARDIOVASCULAR SYSTEM: Significant for hypertension and congestive heart failure. RESPIRATORY SYSTEM: Negative for cough or hemoptysis. GASTROINTESTINAL SYSTEM: Negative for vomiting or diarrhea. GENITOURINARY SYSTEM: Significant for recurrent urinary tract infections. She has a history of polycystic kidneys and kidney stones in the past. PSYCHOSOCIAL SYSTEM: Negative for depression or anxiety. NEUROLOGICAL SYSTEM: Significant for prior strokes. She also has peripheral neuropathy. HEMATOLOGICAL SYSTEM: Significant for chronic anticoagulation due to atrial fibrillation. SKIN: Negative for rash or ulcers. MUSCULOSKELETAL SYSTEM: Significant for chronic degenerative arthritis and back pain. She also reports frequent falls at home. PHYSICAL EXAMINATION: Temperature 97.6 degrees Fahrenheit, heart rate 114 per minute, respiratory rate 18 per minute, blood pressure 138/88 mmHg, oxygen saturation 96% on room air. HEAD: Atraumatic. NECK: Supple and jugular venous distention (JVD) not abnormally elevated. There is no thyroid enlargement. Oral mucosa is moist and without thrush or ulcers. HEART SOUNDS: Irregular and tachycardic. LUNGS: Clear to auscultation. ABDOMEN: Soft and nontender. Bowel sounds are normal. There is no palpable organomegaly. EXTREMITIES: Without any cyanosis or clubbing. There is only trace edema on her ankles. Left arm AV fistula is patent. NEUROLOGIC: She is awake and at her baseline mentation. She just walked out of the bathroom in my presence. LABORATORY DATA: WBC 7.3, hemoglobin 11.3, hematocrit 37, platelets 274. Urinalysis with 157 WBCs and 1+ bacteria. Sodium 132, potassium 4.7, CO2 27, BUN 32, creatinine 3.61, glucose 114. A1C 5.6. Calcium 8.5. Blood cultures are negative and urine culture reported as contaminated. PROBLEMS: 1. Syncope and altered mentation. Patient does have history of mild to moderate carotid artery disease. She had a large fluid gain prior to dialysis. It is possible that she had excessive fluid removal, which may have caused orthostatic hypotension and syncope. Carotid artery stenosis may have also contributed to it. She has atrial fibrillation and that could also contribute to it, with rapid ventricular rate. 2. End-stage renal disease. Patient did complete her dialysis treatment yesterday. Her electrolytes are stable and volume is well-compensated. I do not feel at this point she needs dialysis urgently. We will plan next dialysis tomorrow. 3. Urinary tract infections. She has recurrent urinary tract infections which can also cause altered mentation in elderly females. I would recommend empiric treatment, even though the urine culture is reported as contaminated. 4. Anemia. Her anemia is stable at present and does not need any urgent intervention. 5. Congestive heart failure. Her volume status seems reasonably well-compensated. I do not feel that she is clinically dehydrated. I would recommend a regular renal diet and fluid restriction of 1500 mL per day. Thank you for involving me in the care of Mrs. Romero. I will follow her along with you.
[2020-04-27 22:00] VITALS: BP 142/66
[2020-04-28] MEDS: LEVOTHYROXINE 75MCG TABLET (0.075MG) PO SCH (05:47)
[2020-04-28] MEDS: VITAMIN D 1,000 INTERNATIONAL UNITS TABLET PO SCH ×2 (05:47→20:06)
[2020-04-28] MEDS: APIXABAN 5 MG TAB (ELIQUIS) PO SCH ×2 (05:47→20:05)
[2020-04-28] MEDS: MULTIVITAMINS/MINERALS THERAP 1 TAB PO SCH (05:48)
[2020-04-28] MEDS: LEVOTHYROXINE 100MCG TABLET (0.1MG) PO SCH (05:49)
[2020-04-28] MEDS: OMEPRAZOLE 20 MG CAP PO SCH (05:50)
[2020-04-28] MEDS: CEFEPIME HCL 1 GM in D5W MINI-BAG PLUS 50 ML IV SCH ×2 (05:50→18:52)
[2020-04-28] MEDS: ZINC SULFATE 220 MG CAP PO SCH ×2 (05:50→20:05)
[2020-04-28] MEDS: NYSTATIN 100,000 UNITS/GM TOPICAL PWD 15 GM TOP SCH (05:51)
[2020-04-28 06:00] VITALS: BP 137/71
[2020-04-28 07:59] LABS: HEMATOCRIT 35.1 % (36.0-47.0); HEMOGLOBIN 11.1 g/dl (12.0-15.5); MEAN CORPUSCULAR HEMOGLOBIN 31.4 pg (27.0-33.0); MEAN CORPUSCULAR HGB CONC 31.6 g/dl (32.0-36.5); MEAN CORPUSCULAR VOLUME 99.2 fl (80.0-96.0); PLATELET COUNT, AUTOMATED 208 10^3/uL (150-450); RED BLOOD COUNT 3.54 10^6/uL (4.00-5.40); WHITE BLOOD COUNT 7.6 10^3/uL (4.0-10.0)
[2020-04-28 08:42] LABS: ALBUMIN 2.7 GM/DL (3.2-5.2); BILIRUBIN,TOTAL 0.4 MG/DL (0.2-1.0); CALCIUM LEVEL 8.5 MG/DL (8.8-10.2); CREATININE FOR GFR 4.47 MG/DL (0.55-1.30); GLOMERULAR FILTRATION RATE 10.2 (>39); POTASSIUM SERUM 4.9 MEQ/L (3.5-5.1); TOTAL PROTEIN 7.1 GM/DL (6.4-8.2)
--- NOTE | 2020-04-28 12:36 | IPN ---
PROGRESS NOTE DATE: 04/28/2020 Ms. Romero is seen during hemodialysis this morning. She is feeling much better and denies any complaints. Nursing staff reports that she still gets vague at times. Patient denies any headache, dyspnea, chest pain, nausea, or vomiting. PHYSICAL EXAMINATION: Temperature 97.6 degrees Fahrenheit, heart rate 95 per minute, respiratory rate 18 per minute, blood pressure 140/70 mmHg, and oxygen sat 99% on room air. Her head is atraumatic. Neck supple and without jugular venous distention (JVD) or thyroid enlargement. Heart sounds are irregular and lungs clear to auscultation. Abdomen soft, obese, and nontender, and bowel sounds are normal. Extremities without any cyanosis or clubbing. Her left arm arteriovenous (AV) fistula is patent. Neurologically, she seems to be close to her baseline mentation. Today's labs show WBC count 7.6, hemoglobin 11.1, and hematocrit 35.1. Sodium 132, potassium 4.9, CO2 of 24, BUN 47, and creatinine 4.47. Blood and urine cultures have been negative so far. PROBLEMS: 1. End-stage renal disease. Patient is being dialyzed today, and she is tolerating her dialysis well. Volume status seems to be reasonably well compensated, and we are trying to remove about 2 liters of fluid as tolerated. 2. Altered mentation. Etiology remains uncertain. Brain MRI only showed some old lacunar infarcts and no acute intracranial pathology. She is much better; however, nursing staff reports that she gets vague at times. We will continue to monitor her closely. Hospitalist service is completing the workup for her syncope. 3. Hyponatremia. Sodium level slightly below normal but stable. This is related to end-stage renal disease and will be corrected with dialysis. No other intervention will be needed. 4. Syncope. She has been doing well since admission, and all her workup has been negative so far. Carotid ultrasound did show mild to moderate stenosis. 5. Anemia. At present, her anemia is stable and does not need any urgent intervention.
[2020-04-28 14:00] VITALS: BP 113/75
[2020-04-28] MEDS ORDERED: LevoFLOXacin 250 MG TABLET PO SCH (18:00)
--- NOTE | 2020-04-28 19:13 | IPNPDOC ---
Date Seen The patient was seen on 04/28/20. Progress Note SUBJECTIVE: Sluggish this AM during HD. Echo done, results pending. PT: recommending subacute rehab. She denies chest pain, n/v/d, shortness of breath OBJECTIVE: PHYSICAL EXAMINATION: VS: Please see below CONSTITUTIONAL: No acute distress, laying in bed slightly lethargic but still AAO x 3 EYES: PERRLA, EOM intact HENT, MOUTH: Normocephalic, atraumatic, moist mucous membranes NECK: SUPPLE, no JVD, no lymphadenopathy, no carotid bruit CV: irregularly irregular, tachycardic. no murmurs/rubs/gallops RESPIRATORY: Clear to auscultation bilaterally, no rales/rhonchi/wheezes GI: BS positive in 4 quadrants, soft, nontender, nondistended, no rebound or guarding, no organomegaly : Deferred MUSCULOSKELETAL: Normal ROM. No cyanosis, clubbing, swelling, joint deformity. extremity edema +1 pitting in b/l lower ext INTEGUMENTARY: Intact, no rashes, no lesions, no erythema NEUROLOGIC: General weakness, 4/5 of LLE, LUE and RUE.4/5 weakness of RLE. Cranial Nerves II-XII are intact, no focal deficits LABORATORY DATA: Please see below MICRO: BCx x 2 sets: NG at 48 H UA + but UCx contaminated Repeat UCx pending IMAGING: Echocardiogram 04/27/20: pending results CXR: Elevated right hemidiaphragm. Hazy opacity in the left perihilar region consistent with a inflammatory infiltrate/pneumonia. Cardiomegaly. Vascular congestion. MRI brain: 1. Moderate chronic microvascular disease with small old lacunar infarcts.. 2. No acute intracranial lesion or injury. CT head: Generalized volume loss. Old lacunar infarct right frontal lobe unchanged. Small vessel changes. No acute intracranial abnormality.. ASSESSMENT: 79 y/o F with PMH atrial fibrillation on AC, HTN, ESRD on HD (, , Sat), GERD, hx of lacunar infarct, hypothyroidism, peripheral neuropathy admitted for altered mental status, r/o infection vs. neurological cause. PLAN: Altered mental status/ intermittent confusion, r/o UTI vs. neurological cause (syncope?) -Per family, months of worsening confusion, particularly on HD days after sessions -Episode of "blacking out" that patient complained to family about, "Lost time" in her day -Hx of lacunar infarct on CT head-old, many RF for stoke -Flu, COVID neg -CXR above: neg -UA + but NG on Ucx, repeat UCx pending -Carotid doppler shows mod stenosis- to f/u with vascular in 6 months as o/p -Echo pending -Daily labs -neg neuro checks Atrial fibrillation with RVR -HR remains slightly elevated , incr dilitiazem which has helped control HR better -C/w diltiazem today, apixaban Opacity in the left perihilar region, inflammatory infiltrate/HCAP? vs. pulmonary vascular congestion 2/2 to CHF exacerbation -Currently 98% on RA, crackles b/l posterior lower lung raines, lower ext swelling -CXR above -BNP 97155. In 12/2019 BNP was elevated from 20K-40K , so possibly chronically elevated with her being dialysis patient -F/u echocardiogram, repeat CXR in the AM. -Procalcitonin 0.25, borderline -Stopping cefepime, starting PO levofloxacin. -Unable to provide sputum sample -Not on lasix due to ESRD, c/w HD Carotid stenosis bilaterally -US carotid arterities 50-69% stenosis b/l -Vascular surgeon, Dr. Shea evaluted study, believes closer to 50% than 69% bilaterally. Can follow her up in 6 months as o/p with repeat duplex -Lipid panel unremarkable but adding statin, ASA with hx of vasculopathy and prior CVA Hx of falls -At baseline uses device -PT: recommending subacute rehab -C/w PT/OT while here HTN -STable -C/w home med Hyponatremia likely 2/2 to ESRD -Slightly below normal -Monitor, no other intervention will be needed at this time. ESRD on HD (TTS) -Cr at baseline -Nephrology consulted, Dr. Calvin Hypothyroidism -tsh 8, slightly elevated -F/u with PCP -C/w synthroid Mood disorder -C/w home meds Hx of lacular infarct/ CVA on CT head -Lipid panel and HbA1c unremarkable -ASA, statin med added after discussion with vacular surgery Peripheral neuropathy -C/w gabapentin GERD -C/w PPI DVT px -Apixaban DISPOSITION: PT: recommending subacute rehab. VS, I&O, 24H, Fishbone Vital Signs/I&O Vital Signs Date Time Temp Pulse Resp B/P (MAP) Pulse Ox O2 Delivery O2 Flow Rate FiO2 04/28/20 14:00 97.8 79 17 113/75 (88) 98 Room Air I&O- Last 24 Hours up to 6 AM 04/28/20 06:00 Intake Total 1350 ml Output Total 350 ml Balance 1000 ml Laboratory Data 24H LABS Laboratory Tests 2 04/28/20 05:30: Urine Color YELLOW, Urine Appearance HAZY, Urine pH 5.0, Urine Specific [place] 1.014, Urine Protein 2+H, Urine Glucose (UA) NEGATIVE, Urine Ketones NEGATIVE, Urine Blood NEGATIVE, Urine Nitrite NEGATIVE, Urine Bilirubin NEGATIVE, Urine Urobilinogen 0.2, Urine Leukocyte Esterase TRACEH, Urine WBC (Auto) 8H, Urine RBC (Auto) 2, Urine Hyaline Casts (Auto) 0, Urine Bacteria (Auto) 1+H, Urine Squamous Epithelial Cells 10, Urine Mucus (Auto) SMALL, Urine Sperm (Auto) 04/28/20 07:13: Nucleated Red Blood Cells % (auto) 0.0, Anion Gap 12, Glomerular Filtration Rate 10.2L, Calcium Level 8.5L, Total Bilirubin 0.4, Aspartate Amino Transf (AST/SGOT) 14, Alanine Aminotransferase (ALT/SGPT) 14, Alkaline Phosphatase 134H, Total Protein 7.1, Albumin 2.7L, Albumin/Globulin Ratio 0.6L CBC/BMP Laboratory Tests 04/28/20 07:13 Microbiology Microbiology 04/28/20 Urine Culture, Received Pending 04/26/20 Urine Culture - Final, Complete 04/26/20 Blood Culture - Preliminary, Resulted No Growth after 48 hours. All Specime... 04/26/20 Blood Culture - Preliminary, Resulted No Growth after 48 hours. All Specime... Current Medications Current Medications Medications (Trade) Dose Ordered Sig/So Route PRN Reason Start Time Stop Time Status Last Admin Dose Admin Acetaminophen (Tylenol Tab) 650 mg Q6HP PRN PO PAIN / FEVER 04/27/20 01:45 04/27/20 01:57 Amitriptyline HCl (Elavil) 50 mg QHS PO 04/26/20 21:00 04/27/20 20:21 Apixaban (Eliquis) 5 mg BID PO 04/26/20 21:00 04/28/20 05:47 Cefepime HCl 1 gm/ Dextrose 50 ml @ 100 mls/hr Q12H IV 04/26/20 18:00 04/28/20 18:52 Diltiazem HCl (Cardizem Cd) 240 mg DAILY PO 04/27/20 09:00 04/27/20 14:50 DC 04/27/20 11:30 Diltiazem HCl (Cardizem Cd) 360 mg DAILY PO 04/28/20 09:00 04/28/20 08:22 Fluticasone Propionate (Flonase 0.05% Nasal [place]) 1 spray DAILY PRN NA NASAL CONGESTION 04/26/20 20:45 Gabapentin (Neurontin) 300 mg QHS PO 04/26/20 21:00 04/27/20 20:21 Home Med (Med Rec Complete!) ASDIRECTED XX 04/26/20 15:45 04/26/20 16:02 DC Levothyroxine Sodium (Synthroid) 75 mcg DAILY@06 PO 04/27/20 06:00 04/28/20 05:47 Levothyroxine Sodium (Synthroid) 100 mcg DAILY@06 PO 04/27/20 06:00 04/28/20 05:49 Multivitamins (Theragram-M) 1 tab DAILY PO 04/27/20 09:00 04/28/20 05:48 Non-Formulary Medication ( See Comment Field Below ) CHECK TO SEE IF THE PATIENT... DAILY@1600 XX 04/27/20 16:00 04/27/20 08:06 DC Nystatin (Mycostatin Powder, Nystop) apply to affect areas... DAILY TOP 04/27/20 09:00 04/28/20 05:51 Omeprazole (PriLOSEC) 40 mg DAILY PO 04/27/20 09:00 04/28/20 05:50 Polyethylene Glycol (Miralax) 1 pkt DAILY PRN PO CONSTIPATION 04/26/20 20:45 Vancomycin HCl 1000 mg/IV Miscellaneous Supplies 1 each/ Dextrose 270 ml @ 270 mls/hr HD IV 04/27/20 09:00 04/27/20 08:06 DC Vancomycin HCl 1000 mg/IV Miscellaneous Supplies 1 each/ Dextrose 270 ml @ 270 mls/hr Q24H IV 04/26/20 20:00 04/26/20 23:59 DC 04/26/20 20:31 Vitamin D (Vitamin D) 5,000 units BID PO 04/26/20 21:00 04/28/20 05:47 Zinc Sulfate (Zinc Sulfate) 220 mg BID PO 04/26/20 21:00 04/28/20 05:50 Allergies Coded Allergies: Ryan (Unverified Allergy, Severe, ANAPHYLAXIS, 07/16/17) FISH (Unverified Allergy, Severe, ANAPHYLAXIS, 01/28/17) TAPE (Verified Allergy, Mild, ADHESIVES-RASH AND REDNESS, 01/28/17) Contrast Media (Verified Allergy, Unknown, PATIENT STATES SHE CAN TOLERATE PO, 04/26/20) FRUIT (Verified Allergy, Unknown, FRUIT WITH fuzzy SKIN, 04/26/20) iodine (Verified Allergy, Unknown, 12/30/19) codeine (Verified Adverse Reaction, Mild, stomach upset, 01/19/20) Vickie Hernandez MD Apr 28, 2020 19:13
[2020-04-28] MEDS: ACETAMINOPHEN TAB 650MG DOSE (2X325MG) PO PRN (19:43)
[2020-04-28] MEDS: AMITRIPTYLINE 50 MG TAB PO SCH (20:05)
[2020-04-28] MEDS: GABAPENTIN 300 MG CAP PO SCH (20:05)
[2020-04-28 22:00] VITALS: BP 151/72
[2020-04-29] MEDS: LEVOTHYROXINE 75MCG TABLET (0.075MG) PO SCH (05:40)
[2020-04-29] MEDS: LEVOTHYROXINE 100MCG TABLET (0.1MG) PO SCH (05:40)
[2020-04-29 05:48] LABS: HEMATOCRIT 32.9 % (36.0-47.0); HEMOGLOBIN 10.5 g/dl (12.0-15.5); MEAN CORPUSCULAR HEMOGLOBIN 31.6 pg (27.0-33.0); MEAN CORPUSCULAR HGB CONC 31.9 g/dl (32.0-36.5); MEAN CORPUSCULAR VOLUME 99.1 fl (80.0-96.0); PLATELET COUNT, AUTOMATED 235 10^3/uL (150-450); RED BLOOD COUNT 3.32 10^6/uL (4.00-5.40); WHITE BLOOD COUNT 5.6 10^3/uL (4.0-10.0)
[2020-04-29 06:00] VITALS: BP 151/71
[2020-04-29 06:22] LABS: ALBUMIN 2.6 GM/DL (3.2-5.2); BILIRUBIN,TOTAL 0.4 MG/DL (0.2-1.0); CALCIUM LEVEL 8.4 MG/DL (8.8-10.2); CREATININE FOR GFR 3.31 MG/DL (0.55-1.30); GLOMERULAR FILTRATION RATE 14.4 (>39); TOTAL PROTEIN 6.1 GM/DL (6.4-8.2)
--- NOTE | 2020-04-29 08:28 | REP ---
INDICATION: opacity, checking for improvement COMPARISON: 04/26/2020 TECHNIQUE: PA and lateral. FINDINGS: Bilateral perihilar and left lower lobe opacities are again noted and relatively similar to prior examination. Very subtle improvement cannot be excluded and findings should be correlated with physical examination and auscultation. No new acute process identified. IMPRESSION: Relatively similar to prior examination although very subtle improvement cannot be excluded. No new acute process identified. <Electronically signed by Carmine Johnson > 04/29/20 [id number]
[2020-04-29] MEDS ORDERED: ASPI81CH8 PO (08:39)
[2020-04-29] MEDS ORDERED: ATOR1TAB21 PO (08:39)
[2020-04-29] MEDS ORDERED: CARD120C3 PO (08:39)
[2020-04-29] MEDS ORDERED: LEVO250T12 PO (08:39)
[2020-04-29] MEDS ORDERED: ASPIRIN 81 MG CHEW TABLET PO SCH (09:00)
[2020-04-29] MEDS ORDERED: ATORVASTATIN 20 MG TAB PO SCH (09:00)
[2020-04-29] MEDS: NYSTATIN 100,000 UNITS/GM TOPICAL PWD 15 GM TOP SCH (09:27)
[2020-04-29] MEDS: ZINC SULFATE 220 MG CAP PO SCH (09:27)
[2020-04-29] MEDS: MULTIVITAMINS/MINERALS THERAP 1 TAB PO SCH (09:27)
[2020-04-29 09:28] VITALS: BP 144/67
[2020-04-29] MEDS: APIXABAN 5 MG TAB (ELIQUIS) PO SCH (09:28)
[2020-04-29] MEDS: OMEPRAZOLE 20 MG CAP PO SCH (09:28)
[2020-04-29] MEDS: VITAMIN D 1,000 INTERNATIONAL UNITS TABLET PO SCH (09:28)
--- NOTE | 2020-04-29 09:52 | ECHO ---
DATE OF PROCEDURE: 04/27/2020 Age: 79 Gender: Female Height: 67 inches Weight: 222 pounds Body surface area: 2.11 m2 PATIENT LOCATION: Inpatient [address] [place] [address], Room 4226. REFERRING PHYSICIAN: Vickie Hernandez M.D. INDICATION: Syncopal spell. MEASUREMENTS: 2D Measurements: RV 4.7 cm LV 5.4 cm Septum 1.2 cm Posterior wall 1.1 cm Aortic Root 3.8 cm LA 4.5 cm LVEF 50% Doppler Measurements: AV 2.0 m/s LVOT 1.0 m/s MV-E 146 Early mitral deceleration time 156 msec E prime medial 9.4, E prime lateral 9.5 Average E/E prime ratio 15.4/PCWP - 21 mmHg PV 0.5 m/s Pulmonary artery acceleration time 71 msec RVSP 56 mmHg IVC 2.5 cm COMMENTS: Underlying atrial fibrillation with right bundle branch block. Technically challenging study in light of the patients body habitus, but diagnostically useful information was still obtained. M-mode and two-dimensional echocardiography was performed with pulse, continuous wave, color flow, and tissue Doppler studies. Borderline left ventricular hypertrophy with slight hypokinesis possibly related to her atrial fibrillation and somewhat rapid ventricular response. Moderately dilated left atrium with elevated estimated mean left atrial pressure. Moderately dilated right ventricle with normal right ventricular free wall motion and Doppler evidence of at least moderately severe pulmonary hypertension. Moderately severely dilated right atrium and IVC with absent respiratory collapse in keeping with an elevated central venous pressure. Aortic root upper limits of normal in size with normal ascending aortic diameter. Moderate aortic valvular sclerosis with reduced cusp separation suspected to reflect reduced forward stroke volume rather than a severe degree of LV outflow tract obstruction. There was a trace degree of aortic insufficiency. Moderate degenerative changes of the mitral valve apparatus and mitral annulus with adequate leaflet excursion and no obvious posterior systolic buckling, but at least moderate mitral insufficiency. Normal appearing tricuspid valve with severe tricuspid insufficiency. Unable to detect any clear intracardiac mass. No pericardial effusion. MTDD
--- NOTE | 2020-04-29 12:07 | IPN ---
PROGRESS NOTE DATE: 04/29/2020 SUBJECTIVE: Mrs. Romero is seen this morning on her bedside. She has a complaint of swollen feet and legs. She has no dyspnea or chest pain. She denies any fever or chills. She is able to walk with the help of a walker, however her feet are swollen, so she is having problems with her balance. She was dialyzed yesterday and she tolerated her dialysis treatment very well. We were able to remove about 2 liters of fluid. PHYSICAL EXAMINATION: VITALS: Temperature 98.1 degrees Fahrenheit, heart rate 93 per minute, respiratory rate 18 per minute, blood pressure 144/67 mmHg and oxygen saturation 97% on room air. HEENT: Head is atraumatic. NECK: Supple and JVD is difficult to be assessed sitting upright in the chair. HEART: Sounds are irregular in rhythm. LUNGS: Slightly diminished breath sounds and a few basilar rales. ABDOMEN: Soft and nontender. Bowel sounds are normal. EXTREMITIES: Without any cyanosis or clubbing. Lower extremity edema is 2+ bilaterally. NEUROLOGIC: She is awake, alert and oriented x3. LABORATORY DATA: Today's labs show WBC count 5.6, hemoglobin 10.5, hematocrit 32.9, platelets 235,000. Sodium 136, potassium 4.0, CO2 28, BUN 33 and creatinine 3.31, glucose 109 and calcium 8.4. PROBLEMS: 1. End-stage renal disease: Patient was dialyzed yesterday and her regular dialysis will be scheduled for tomorrow. 2. Congestive heart failure and leg edema: Volume status is slightly decompensated. I have made arrangements for her to go to outpatient dialysis clinic today and get an extra ultrafiltration session for two hours in order to remove 2 more liters of fluid. Will try to correct her volume status with dialysis tomorrow and next week. 3. Syncope: She has remained stable here in the hospital and our workup has been negative so far. 4. Anemia: Her anemia is stable and does not need any urgent intervention. DISPOSITION: Patient can be discharged today and follow-up as an outpatient. I have made arrangements for her to have dialysis session today for fluid removal and regular dialysis tomorrow.
--- NOTE | 2020-04-29 17:07 | DS.PDOC ---
Discharge Summary General Date of Admission Apr 26, 2020 at 14:24 Date of Discharge 04/29/20 Attending Physician: Vickie Hernandez MD Discharge Summary HISTORY OF PRESENT ILLNESS: Patient is a 79 y/o F with PMH of atrial fibrillation on AC, HTN, ESRD on HD (, Th, Sat), GERD, hx of lacunar infarct, hypothyroidism, peripheral neuropathy who presented to [facility] ER sent from hemodialysis clinic for increased altered mental status. Patient was not a great historian as she was confused at times. She was awake, lethargic but oriented x 2 (self and place). Per patient's , he confusion has been worsening over the past 6 months . No prior diagnosis of dementia. She has been "falling" at home and sliding out of the bed onto the floor per , happened 3 times. He also states that 2 times. He states that she has been slurring words for approximately several months, fine motor skills and coordination has gotten worse. Walking and moving around is little impacted. Symptoms are worsened on days that she has dialysis, family states that. The family went out to dinner last night, slightly unstable with cane but was coherent, not slurring speech at all. States she ate well, had a good times. Patient's family told me that patient reported "losing a period of time" , felt like she "blacked out" and couldn't remember 40 mins of her night. Patient's family never saw any signs or symptoms of stroke including facial drooping, unilateral arm weakness, drooling. In the ER, VS were stable. CT head: Generalized volume loss, old lacunar infarct right frontal lobe unchanged, small vessel changes, no acute intracranial abnormality. Cr 2.9, near baseline. Other labs essentially unremarkable, trop neg. FLU, COVID neg. UA, BCx, CXR pending. Discussed case with Dr. Calvin. Patient will be admitted for altered mental status, r/o infection vs. neurological cause. HOSPITAL COURSE: Altered mental status with intermittent confusion was found to be likely 2/2 to neurological cause (syncope vs. intermittent orthostatic hypotension). Per family, months of worsening confusion, particularly on HD days after sessions are her worst- this was discussed with nephrology and perhaps her BP dropping low intermittent causes episodes/periods of fatigue. Work up of syncope showed CT head: old lacunar infarct but no new areas of concern. Carotid doppler shows mod stenosis- to f/u with vascular in 6 months as o/p. Infection workup was neg for flu, COVID, UA. There was an opacity in the left perihilar region on CXR- ? inflammatory infiltrate/HCAP? vs. pulmonary vascular congestion 2/2 to CHF exacerbation. She never complained of resp symptoms but had some crackles b/l posterior lower lung raines, lower ext swelling. BNP was >23K- In 12/2019 BNP was elevated from 20K-40K , so possibly chronically elevated with her being dialysis patient. She does not make much urine so diuresis is not an option for her. Procalcitonin 0.25, borderline and PO levofloxacin was given to her to continue for 10 day. Echocardiogram is currently pending and will need to be followed up by her PCP, psychiatric technician after discharge. For atrial fibrillation with RVR, diltiazem was increased which has helped control HR better. Aside from echocardiogram pending, patient was cleared by PT on 04/29/20 and decision was made to discharge home. She should f/u with nephrology for HD, cardiology o/p and with PCP. She denies chest pain, incr shortness of breath, n/v/d, fevers and chills at discharge. PMHx: A. 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 Bilateral kidney stone, removed. Bilateral breast benign nodule removed. Hysterectomy Cholecystectomy Appendectomy FHx: Mother: DM type II. at 88 y/o Father: Kidney problems. in 60's. SOCIALHx: Denies smoking, drug use. Social alcohol use, 20-30 ounces alcohol daily (red wine). At baseline can use cane and walker. She is a full code. PHYSICAL EXAMINATION: VS: Please see below CONSTITUTIONAL: No acute distress, laying in bed slightly lethargic but still AAO x 3 EYES: PERRLA, EOM intact HENT, MOUTH: Normocephalic, atraumatic, moist mucous membranes NECK: SUPPLE, no JVD, no lymphadenopathy, no carotid bruit CV: irregularly irregular, tachycardic. no murmurs/rubs/gallops RESPIRATORY: Clear to auscultation bilaterally, no rales/rhonchi/wheezes GI: BS positive in 4 quadrants, soft, nontender, nondistended, no rebound or guarding, no organomegaly : Deferred MUSCULOSKELETAL: Normal ROM. No cyanosis, clubbing, swelling, joint deformity. extremity edema +1 pitting in b/l lower ext INTEGUMENTARY: Intact, no rashes, no lesions, no erythema NEUROLOGIC: General weakness, 4/5 of LLE, LUE and RUE.4/5 weakness of RLE. Cranial Nerves II-XII are intact, no focal deficits LABORATORY DATA: Please see below MICRO: BCx x 2 sets: NG at 48 H UA + but UCx contaminated Repeat UCx: NG IMAGING: Echocardiogram 04/27/20: pending results CXR: Elevated right hemidiaphragm. Hazy opacity in the left perihilar region consistent with a inflammatory infiltrate/pneumonia. Cardiomegaly. Vascular congestion. MRI brain: 1. Moderate chronic microvascular disease with small old lacunar infarcts.. 2. No acute intracranial lesion or injury. CT head: Generalized volume loss. Old lacunar infarct right frontal lobe unchanged. Small vessel changes. No acute intracranial abnormality.. ASSESSMENT: 79 y/o F with PMH atrial fibrillation on AC, HTN, ESRD on HD (, , Sat), GERD, hx of lacunar infarct, hypothyroidism, peripheral neuropathy admitted for altered mental status, r/o infection vs. neurological cause. PLAN: Altered mental status/ intermittent confusion likely neurological cause (syncope vs orthostatic hypotension-possibly from fluctuating BP in dialysis?) -Per family, months of worsening confusion, particularly on HD days after sessions -Episode of "blacking out" that patient complained to family about, "Lost time" in her day -Hx of lacunar infarct on CT head-old, many RF for stoke -Flu, COVID neg -CXR above: neg -UA + but NG on Ucx, repeat UCx pending -Carotid doppler shows mod stenosis- to f/u with vascular in 6 months as o/p -Echo pending -Neuro checks neg -Continue to monitor at home, PCP Atrial fibrillation with RVR -HR improved with incr diltiazem which has helped control HR better -C/w diltiazem today, apixaban Opacity in the left perihilar region, inflammatory infiltrate/HCAP? vs. pulmonary vascular congestion 2/2 to CHF exacerbation -Currently 98% on RA, crackles b/l posterior lower lung raines, lower ext swelling -CXR above -BNP 02091. In 12/2019 BNP was elevated from 20K-40K , so possibly chronically elevated with her being dialysis patient -F/u echocardiogram, repeat CXR in the AM. -Procalcitonin 0.25, borderline -Stopping cefepime, starting PO levofloxacin x 10 days -Unable to provide sputum sample -Not on lasix due to ESRD, c/w HD Carotid stenosis bilaterally -US carotid arterities 50-69% stenosis b/l -Vascular surgeon, Dr. Shea evaluted study, believes closer to 50% than 69% bilaterally. Can follow her up in 6 months as o/p with repeat duplex -Lipid panel unremarkable but added statin, ASA with hx of vasculopathy and prior CVA Hx of falls -At baseline uses device -C/w o/p PT HTN -STable -C/w home med Hyponatremia likely 2/2 to ESRD -Slightly below normal -Monitor by PCP, no other intervention will be needed at this time. ESRD on HD (TTS) -Cr at baseline -Nephrology consulted, Dr. Calvin Hypothyroidism -tsh 8, slightly elevated -F/u with PCP -C/w synthroid Mood disorder -C/w home meds Hx of lacular infarct/ CVA on CT head -Lipid panel and HbA1c unremarkable -ASA, statin med added after discussion with vacular surgery Peripheral neuropathy -C/w gabapentin GERD -C/w PPI DVT px -Apixaban DISPOSITION: Discharge to home with f/u with nephrology, cardiology TIME SPENT ON DISCHARGE: Greater than 30 minutes. Vital Signs/I&Os Vital Signs Date Time Temp Pulse Resp B/P (MAP) Pulse Ox O2 Delivery O2 Flow Rate FiO2 04/29/20 09:28 95 144/67 04/29/20 06:00 98.1 18 97 Room Air I&O- Last 24 Hours up to 6 AM 04/29/20 06:00 Intake Total 1050 ml Output Total 2000 ml Balance -950 ml Laboratory Data Labs 24H Laboratory Tests 2 04/29/20 05:25: Nucleated Red Blood Cells % (auto) 0.0, Anion Gap 8, Glomerular Filtration Rate 14.4L, Calcium Level 8.4L, Total Bilirubin 0.4, Aspartate Amino Transf (AST/SGOT) 6L, Alanine Aminotransferase (ALT/SGPT) 11L, Alkaline Phosphatase 124H, Total Protein 6.1L, Albumin 2.6L, Albumin/Globulin Ratio 0.7L CBC/BMP Laboratory Tests 04/29/20 05:25 Microbiology Microbiology 04/28/20 Urine Culture - Final, Complete 04/26/20 Urine Culture - Final, Complete 04/26/20 Blood Culture - Preliminary, Resulted No Growth after 72 hours. All specime... 04/26/20 Blood Culture - Preliminary, Resulted No Growth after 72 hours. All specime... Discharge Medications Scheduled Amitriptyline HCl (Amitriptyline HCl) 50 Mg Tablet, 50 MG PO QHS, (Reported) Apixaban (Eliquis) 5 Mg Tablet, 5 MG PO BID, (Reported) Aspirin (Children's Aspirin) 81 Mg Tab.chew, 81 MG PO DAILY Atorvastatin Calcium (Atorvastatin Calcium) 20 Mg Tablet, 20 MG PO DAILY Cholecalciferol (Vitamin D3) (Vitamin D3) 1,000 Unit Tablet, 5,000 UNITS PO BID, (Reported) Diltiazem Hcl (Cardizem Cd) 120 Mg Cap.er.24h, 360 MG PO DAILY Ferric Citrate (Auryxia) 210 Mg Tablet, 3 TAB PO TID, (Reported) Ferric Citrate (Auryxia) 210 Mg Tablet, 620 MG PO WM, (Reported) Fexofenadine HCl (Mali Allergy) 180 Mg Tab, 180 MG PO DAILY, (Reported) Gabapentin (Gabapentin) 300 Mg Cap, 300 MG PO QHS, (Reported) Levofloxacin (Levofloxacin) 250 Mg Tablet, 250 MG PO Q2D@1800 Levothyroxine Sodium (Synthroid) 175 Mcg Tab, 175 MCG PO DAILY, (Reported) Lidocaine/Prilocaine (Lidocaine-Prilocaine Cream) 2.5%/2.5% Cream..g., 1 DOSE TOP 3XW, (Reported) SATURDAY, SATURDAY AND SATURDAY PRIOR TO DIALYSIS Melatonin (Melatonin) 10 Mg Tablet, 10 MG PO QHS, (Reported) Multivitamins (Thera M Plus Tablet) 1 Each Tablet, 1 TAB PO DAILY, (Reported) Omeprazole (Omeprazole) 40 Mg Cap, 40 MG PO DAILY, (Reported) Ubidecarenone (Co Q-10) 200 Mg Capsule, 200 MG PO DAILY, (Reported) Zinc Sulfate (Zinc Sulfate) 220 Mg Tablet, 220 MG PO BID, (Reported) Scheduled PRN Fluticasone Propionate (Flonase Allergy Relief) 50 Mcg/Act Spr, 1 SPRAY NA DAILY PRN for NASAL CONGESTION, (Reported) Polyethylene Glycol 3350 (Miralax) 17 Gm Powd.pack, 17 GM PO DAILY PRN for CONSTIPATION, (Reported) Allergies Coded Allergies: Ryan (Unverified Allergy, Severe, ANAPHYLAXIS, 07/16/17) FISH (Unverified Allergy, Severe, ANAPHYLAXIS, 01/28/17) TAPE (Verified Allergy, Mild, ADHESIVES-RASH AND REDNESS, 01/28/17) Contrast Media (Verified Allergy, Unknown, PATIENT STATES SHE CAN TOLERATE PO, 04/26/20) FRUIT (Verified Allergy, Unknown, FRUIT WITH fuzzy SKIN, 04/26/20) iodine (Verified Allergy, Unknown, 12/30/19) codeine (Verified Adverse Reaction, Mild, stomach upset, 01/19/20) Vickie Hernandez MD Apr 29, 2020 17:07
== END 2020-04-29 11:21 | disposition home or self-care (01) | DRG 312 ==
LOC: M ED 10:52 → M ED INP 14:24 → M MSPAV 16:27
PROVIDERS: ADMIT Internal Medicine; ATTEND Internal Medicine
PROC: 5A1D70Z Performance of Urinary Filtration, Intermittent, Less than 6 Hours Per Day (ICD-10-PCS; principal; 2020-04-28)
DX: I95.3 Hypotension of hemodialysis (principal); N18.6 End stage renal disease; J18.9 Pneumonia, unspecified organism; I13.2 Hypertensive heart and chronic kidney disease with heart failure and with stage 5 chronic kidney disease, or end stage renal disease; Q61.3 Polycystic kidney, unspecified; E87.1 Hypo-osmolality and hyponatremia; I48.91 Unspecified atrial fibrillation; E03.9 Hypothyroidism, unspecified; F39 Unspecified mood [affective] disorder; I65.23 Occlusion and stenosis of bilateral carotid arteries; G62.9 Polyneuropathy, unspecified; R41.82 Altered mental status, unspecified; D63.1 Anemia in chronic kidney disease; R55 Syncope and collapse; I50.9 Heart failure, unspecified; R29.6 Repeated falls; K21.9 Gastro-esophageal reflux disease without esophagitis; Z86.73 Personal history of transient ischemic attack (TIA), and cerebral infarction without residual deficits; Z98.84 Bariatric surgery status; Z90.49 Acquired absence of other specified parts of digestive tract; Z87.442 Personal history of urinary calculi; Z91.048 Other nonmedicinal substance allergy status; Z79.01 Long term (current) use of anticoagulants; Z79.899 Other long term (current) drug therapy; Z88.5 Allergy status to narcotic agent; Z88.8 Allergy status to other drugs, medicaments and biological substances; Z91.013 Allergy to seafood; Z91.018 Allergy to other foods; Z91.041 Radiographic dye allergy status; Z20.822 Contact with and (suspected) exposure to COVID-19

== ENCOUNTER 2020-05-31 13:00 | Emergency (ER) | payer MEDICARE, OTHER ==
[~2020-05-31] VITALS: Ht 170.2 cm; Wt 96.8 kg
[~2020-05-31 13:00] MED LIST changes: -AMIT10TA PO; +AMIT10TA7 PO; +AMLO1TAB24; +ASPI-569 PO; +ASPI81CH8 PO; -ASPI81TAEC PO; +ATOR1TAB21 PO; +BUPR150T12 PO; -BUPR150T4 PO; +CARD120C3 PO; +CO Q200C10 PO; +D31000TA2 PO; +DILT240C83 PO; +HYDR-3911; +LEVO250T12 PO; +RA M10TA PO; +ZINC220T6 PO
[2020-05-31] MEDS ORDERED: ONDANSETRON 4MG/2ML VIAL IV ONE (13:50)
[2020-05-31] MEDS ORDERED: MORPHINE 4 MG/ML 1ML VIAL/SYRINGE (J2270) IV ONE ×2 (13:50→15:30)
[2020-05-31 14:25] LABS: BASO % 0.2 % (0.0-1.0); EOS # 0.1 10^3/uL (0.0-0.5); EOS % 0.7 % (0.0-3.0); HEMATOCRIT 33.8 % (36.0-47.0); HEMOGLOBIN 10.7 g/dl (12.0-15.5); LYMPH # 0.4 10^3/uL (1.5-5.0); LYMPH % 3.7 % (24.0-44.0); MEAN CORPUSCULAR HEMOGLOBIN 31.1 pg (27.0-33.0); MEAN CORPUSCULAR HGB CONC 31.7 g/dl (32.0-36.5); MEAN CORPUSCULAR VOLUME 98.3 fl (80.0-96.0); MONO # 0.7 10^3/uL (0.0-0.8); MONO % 7.2 % (2.0-8.0); NEUTROPHILS # 8.6 10^3/uL (1.5-8.5); NEUTROPHILS % 87.9 % (36.0-66.0); PLATELET COUNT, AUTOMATED 276 10^3/uL (150-450); RED BLOOD COUNT 3.44 10^6/uL (4.00-5.40); WHITE BLOOD COUNT 9.8 10^3/uL (4.0-10.0)
[2020-05-31] MEDS: READI-CAT 2 PO SCH ×2 (14:35→15:24)
[2020-05-31 14:48] LABS: CK-MB VALUE MASS 1.4 NG/ML (<3.6); MB/CK RELATIVE INDEX 7.37 (< OR =4); TROPONIN I 0.03 NG/ML (< 0.10)
[2020-05-31 15:02] LABS: ALBUMIN 2.5 GM/DL (3.2-5.2); BILIRUBIN,DIRECT 0.2 MG/DL (0.0-0.2); BILIRUBIN,TOTAL 0.4 MG/DL (0.2-1.0); CALCIUM LEVEL 8.5 MG/DL (8.8-10.2); CREATININE FOR GFR 2.68 MG/DL (0.55-1.30); GLOMERULAR FILTRATION RATE 18.3 (>39); POTASSIUM SERUM 3.7 MEQ/L (3.5-5.1); TOTAL PROTEIN 6.2 GM/DL (6.4-8.2)
[2020-05-31] MEDS ORDERED: METOCLOPRAMIDE INJ 10MG/2ML VIAL (J2765 PER 1) IV ONE (15:30)
--- NOTE | 2020-05-31 17:33 | REPVR ---
PROCEDURE INFORMATION: Exam: CT Head Without Contrast Exam date and time: 05/31/2020 5:25 PM Age: 79 years old Clinical indication: Pain; Headache; Additional info: Fall x4 weeks ago with progressively worsening headache, darius TECHNIQUE: Imaging protocol: Computed tomography of the head without contrast. Radiation optimization: All CT scans at this facility use at least one of these dose optimization techniques: automated exposure control; mA and/or kV adjustment per patient size (includes targeted exams where dose is matched to clinical indication); or iterative reconstruction. COMPARISON: CT Head without contrast 04/26/2020 11:25 AM FINDINGS: Brain: No intracranial mass, mass effect or midline shift. No acute intracranial hemorrhage. No CT evidence of acute cortical infarct. Old appearing lacunar infarct, anterior right perisylvian, unchanged Ventricles, cisterns, and sulci are normal in size for age. Bones/joints: No calvarial fracture or destructive process. Paranasal sinuses: Imaged paranasal sinuses are normally aerated. Mastoid air cells: Mastoid air cells and middle ear structures are normally aerated aside from minimal opacification of the inferior most left mastoids. Orbital cavity: Imaged orbits are unremarkable. Soft tissues: No focal extracranial soft tissue swelling. IMPRESSION: No acute or concerning focal intracranial abnormality and no significant interval change since the prior exam. Electronically signed by: Andrews Dean On 05/31/2020 17:33:52 PM
--- NOTE | 2020-05-31 17:42 | REPVR ---
PROCEDURE INFORMATION: Exam: CT Abdomen And Pelvis Without Contrast Exam date and time: 05/31/2020 5:25 PM Age: 79 years old Clinical indication: Abdominal pain; Generalized; Additional info: Fall x4 weeks ago with progressively worsening headache, darius TECHNIQUE: Imaging protocol: Computed tomography of the abdomen and pelvis without contrast. Radiation optimization: All CT scans at this facility use at least one of these dose optimization techniques: automated exposure control; mA and/or kV adjustment per patient size (includes targeted exams where dose is matched to clinical indication); or iterative reconstruction. COMPARISON: CT ABD PELVIS W/O CONTRAST 06/07/2018 8:24 PM FINDINGS: Pleural spaces: Large right and small left pleural effusions are present, layering dependently with adjacent atelectasis. No underlying pneumonia or pulmonary edema. Multi chamber cardiac enlargement is noted. Liver: Liver demonstrates multiple low-density lesions compatible with cysts, measuring up to 2.9 cm in size. These are unchanged. Gallbladder and bile ducts: Gallbladder is surgically absent. Prominent intra and extrahepatic bile ducts are present, with prominent common bile duct tapering in the pancreatic head without identifiable stone or obstructing mass. No change in pattern. Pancreas: Noncontrast pancreas shows no obvious mass or adjacent fluid. Spleen: Noncontrast spleen shows no obvious focal deformity. Adrenal glands: Adrenal glands are normal in appearance. Kidneys and ureters: Polycystic kidneys are present with multiple calculi but no obstructive uropathy or change in appearance. Stomach and bowel: Gastric bypass changes show no obvious complication. No evidence of small bowel obstruction. Diverticular changes are present within the colon without inflammation. Appendix: Appendix is not seen. No RLQ inflammation to suggest appendicitis. Intraperitoneal space: No pneumoperitoneum. Vasculature: Atherosclerotic change present in the aorta, without aneurysm. Lymph nodes: . No enlarged lymph nodes. Urinary bladder: Urinary bladder appears normal. Reproductive: Uterus is surgically absent. Bones/joints: Bony structures are normal except for lumbar spine degenerative disc changes and a subacute appearing sacral fracture. Soft tissues: Limited evaluation without IV contrast. Also limited by body habitus related artifact and scanning of the patient with the right upper extremity at the side of the body. No intra-abdominal hematoma. Diffuse body wall edema is present. IMPRESSION: 1. No acute surgical or inflammatory intra-abdominal or pelvic process. 2. Bilateral pleural effusions with adjacent atelectasis and cardiac enlargement suggesting residual effusions from pulmonary edema which has resolved. 3. Polycystic kidney disease. 4. Stable intra and extrahepatic bile duct dilatation without evidence of stone or obstructing mass 5. No evidence of acute intra-abdominal or pelvic traumatic sequela. Subacute appearing S2-3 sacral fracture deformity with no adjacent hematoma Electronically signed by: Andrews Dean On 05/31/2020 17:42:36 PM
[2020-05-31 19:17] VITALS: BP 124/58
--- NOTE | 2020-05-31 19:43 | ECGEPIP ---
[facility] Test Date: 2020-05-31 Pat Name: DARCY FRENCH Department: Room: - Gender: Female Clinical Specialist Medical Device: LIBERTY : 1940 Requested By: RAF CEJA Order Number: [id number] Reading MD: Debora Juarez Measurements Intervals [place] Rate: 90 P: LA: QRS: -32 QRSD: 152 T: 139 QT: 414 QTc: 506 Interpretive Statements Atrial fibrillation Left axis deviation Right bundle branch block NON-SPECIFIC STT ABNORMALITIES SIMILAR TO 04/26/20 Electronically Signed on 05-31-2020 19:43:25 EST by Debora Juarez
--- NOTE | 2020-06-02 08:34 | ED PDOC ---
Post-Departure Follow-Up dr farias faxed formal report of ct abd/p for fu Eulalio Morales MD Jun 02, 2020 08:34
== END 2020-05-31 19:45 | disposition home or self-care (01) ==
LOC: M ED 13:00
DX: R10.84 Generalized abdominal pain (principal); R51.9 Headache, unspecified; I11.0 Hypertensive heart disease with heart failure; I50.9 Heart failure, unspecified; N18.6 End stage renal disease; I48.91 Unspecified atrial fibrillation; F33.9 Major depressive disorder, recurrent, unspecified; F41.9 Anxiety disorder, unspecified; E78.5 Hyperlipidemia, unspecified; G47.33 Obstructive sleep apnea (adult) (pediatric); E21.3 Hyperparathyroidism, unspecified; M81.0 Age-related osteoporosis without current pathological fracture; Z95.5 Presence of coronary angioplasty implant and graft; Z98.84 Bariatric surgery status; Z99.89 Dependence on other enabling machines and devices; Z79.899 Other long term (current) drug therapy; Z79.82 Long term (current) use of aspirin; Z79.01 Long term (current) use of anticoagulants; Z88.5 Allergy status to narcotic agent; Z88.8 Allergy status to other drugs, medicaments and biological substances; Z91.018 Allergy to other foods; Z91.041 Radiographic dye allergy status; Z91.048 Other nonmedicinal substance allergy status
CPT/HCPCS: 70450; 74176; 80048; 80076; 82550; 82553; 83690; 84484; 85025; 93005; 96374; 96375; 96376; 99284; J2270; J2405; J2765; U0002

== ENCOUNTER → 2020-06-24 | Outpatient (CLI) | payer MEDICARE, OTHER ==
[2020-06-24 11:20] LABS: BASO % 0.4 % (0.0-1.0); EOS # 0.1 10^3/uL (0.0-0.5); EOS % 1.4 % (0.0-3.0); HEMATOCRIT 33.4 % (36.0-47.0); HEMOGLOBIN 10.4 g/dl (12.0-15.5); LYMPH # 0.4 10^3/uL (1.5-5.0); LYMPH % 5.2 % (24.0-44.0); MEAN CORPUSCULAR HEMOGLOBIN 31.7 pg (27.0-33.0); MEAN CORPUSCULAR HGB CONC 31.1 g/dl (32.0-36.5); MEAN CORPUSCULAR VOLUME 101.8 fl (80.0-96.0); MONO # 0.7 10^3/uL (0.0-0.8); NEUTROPHILS # 6.4 10^3/uL (1.5-8.5); NEUTROPHILS % 83.6 % (36.0-66.0); PLATELET COUNT, AUTOMATED 308 10^3/uL (150-450); RED BLOOD COUNT 3.28 10^6/uL (4.00-5.40); WHITE BLOOD COUNT 7.7 10^3/uL (4.0-10.0)
[2020-06-24 11:40] LABS: ERYTHROCYTE SEDIMENTATION RATE 48 mm/hr (0-30)
[2020-06-24 11:48] LABS: ALBUMIN 2.5 GM/DL (3.2-5.2); ALT/SGPT 12 U/L (12-78); BILIRUBIN,TOTAL 0.5 MG/DL (0.2-1.0); BLOOD UREA NITROGEN 24 MG/DL (7-18); CALCIUM LEVEL 8.7 MG/DL (8.8-10.2); CARBON DIOXIDE LEVEL 34 MEQ/L (21-32); CHLORIDE LEVEL 96 MEQ/L (98-107); CREATININE FOR GFR 2.83 MG/DL (0.55-1.30); GLOMERULAR FILTRATION RATE 17.2 (>39); GLUCOSE, FASTING 104 MG/DL (70-100); POTASSIUM SERUM 4.6 MEQ/L (3.5-5.1); RHEUMATOID FACTOR QUANT < 10.0 IU/ML (<15.0); SODIUM LEVEL 136 MEQ/L (136-145); TOTAL PROTEIN 6.3 GM/DL (6.4-8.2)
[2020-06-24 11:49] LABS: TOTAL 25(OH) VITAMIN D 109.1 NG/ML (30.0-100.0)
[2020-06-25 14:08] LABS: ANTI DOUBLE STRAND-DNA AB 3 IU/mL (0-9); ANTINUCLEAR ANTIBODIES DIRECT Positive (Negative); RNP ANTIBODIES 1.8 AI (0.0-0.9); SJOGREN'S ANTI SS-A <0.2 AI (0.0-0.9); SJOGREN'S ANTI SS-B <0.2 AI (0.0-0.9); SMITH ANTIBODIES <0.2 AI (0.0-0.9)
== END ==
LOC: M PLALAB 09:39
PROVIDERS: ATTEND Psychiatry & Neurology Neurology
DX: R51.9 Headache, unspecified (principal); Z79.899 Other long term (current) drug therapy

== ENCOUNTER 2020-06-25 14:41 | Emergency (ER) | payer MEDICARE, OTHER ==
[~2020-06-25] VITALS: Ht 170.2 cm; Wt 97.3 kg
--- NOTE | 2020-06-25 15:57 | REP ---
INDICATION: pain after fall. COMPARISON: Comparison CT study cervical spine November 20, 2017.. TECHNIQUE: Helical scanning is acquired and overlapping 2 mm high resolution axial images were generated and reviewed at bone and soft tissue window settings. Coronal and sagittal multiplanar re-formations images are generated. FINDINGS: There is reversal of the normal cervical lordosis at C4 through C6. There is complete bony ankylosis of the C5-6 disc space. Posterior anterior osteophytic ridging is observed at C5-6. This is unchanged. There is a degenerative grade 1 4 mm spondylolisthesis of C4 anterior with respect to C5 due to degenerative disc and facet osteoarthritis. This is unchanged. Degenerative disc disease is seen at C6-7 with mild diffuse disc bulging unchanged from the comparison study. There is progressive erosive osteoarthritis at the articulation between the dens and anterior arch of C1 and at the left side of the C1-C2 facet joint. This is more pronounced than when compared with the November 20, 2017 study. There is slight subluxation of the C1-C2 facet joint with C2 subluxed 2-3 mm to the left. The superior articular facet of C2 is position 2-3 mm anterior to the C1 inferior articular facet on the left today. No fracture is evident. Changes are felt to be due to erosive arthropathy. No soft tissue swelling is seen. No other erosive changes are seen. Osteoarthritic hypertrophy is noted at the mid cervical spine bilaterally. The lung apices are clear. The lung apices are clear. There is some pleural thickening on the right suggesting small right pleural effusion. IMPRESSION: Advanced degenerative spondylosis changes with a stable degenerative C4-5 spondylolisthesis and old ankylosis of the C5-6 disc. 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 No fracture is appreciated.. <Electronically signed by Gage Fuentes > 06/25/20 [id number]
--- NOTE | 2020-06-25 17:00 | REP ---
INDICATION: fall. COMPARISON: Comparison radiographs March 19, 2016.. TECHNIQUE: Four views. FINDINGS: Four views of the left tib fib demonstrate moderate diffuse osteopenia. Diffuse soft tissue swelling is seen. Vascular calcification is noted. No fracture is seen. Plantar calcaneal spurring is noted. There is mild osteoarthritic spurring at the knee.. . No opaque foreign body noted. IMPRESSION: Diffuse osteoporosis. Vascular calcification. Osteoarthritic spurring at the knee. Heel spurring. No acute bony abnormality is appreciated.. <Electronically signed by Gage Fuentes > 06/25/20 [id number]
--- NOTE | 2020-06-25 17:01 | REP ---
INDICATION: fall. COMPARISON: Comparison radiograph December 10, 2018.. TECHNIQUE: AP view of the pelvis and AP and frogleg views of the left hip are obtained. Three views. FINDINGS: The bony pelvic ring is intact. No pelvic fracture or sacral fracture is seen. Femoral heads are smooth and rounded. Hip joint spaces are preserved. Vascular calcification is noted. No hip fracture is seen. IMPRESSION: No fracture noted. <Electronically signed by Gage Fuentes > 06/25/20 [id number]
[2020-06-25 17:21] VITALS: BP 163/93
== END 2020-06-25 17:23 | disposition home or self-care (01) ==
LOC: M ED 14:41
DX: S70.12XA Contusion of left thigh, initial encounter (principal); S80.12XA Contusion of left lower leg, initial encounter; W05.0XXA Fall from non-moving wheelchair, initial encounter; Y92.018 Other place in single-family (private) house as the place of occurrence of the external cause; E11.9 Type 2 diabetes mellitus without complications; I10 Essential (primary) hypertension; I25.10 Atherosclerotic heart disease of native coronary artery without angina pectoris; Z98.84 Bariatric surgery status; Z79.899 Other long term (current) drug therapy; Z79.82 Long term (current) use of aspirin; Z79.890 Hormone replacement therapy; Z88.5 Allergy status to narcotic agent; Z88.8 Allergy status to other drugs, medicaments and biological substances; Z91.018 Allergy to other foods; Z91.041 Radiographic dye allergy status; Z91.048 Other nonmedicinal substance allergy status

== ENCOUNTER 2020-06-30 11:22 | Emergency (ER) | payer MEDICARE, OTHER ==
[~2020-06-30] VITALS: Ht 167.6 cm; Wt 97.7 kg
--- NOTE | 2020-06-30 11:54 | REP ---
INDICATION: headache. COMPARISON: 05/31/2020 TECHNIQUE: CT BRAIN PERFORMED IN THE AXIAL PLANE. CORONAL RECONSTRUCTION IMAGES ARE PERFORMED. FINDINGS: LATERAL VENTRICLES MIDLINE SYMMETRIC IN THEIR SIZE PROPORTIONATE TO THE DIFFUSE MODERATELY SEVERE CEREBRAL ATROPHY THAT ATROPHY IS GREATEST IN THE TEMPORAL AND FRONTAL LOBES. IT IS PRESENT THROUGHOUT. AN OLD LACUNAR INFARCT IN THE RIGHT BASAL GANGLIA LATERAL TO THE HEAD OF THE CAUDATE NUCLEUS LATERAL TO THE PUTAMEN. THIS IS ALONG THE SYLVIAN FISSURE AND IN THE WHITE MATTER. IT IS UNCHANGED. SOME CHRONIC SMALL-VESSEL WHITE MATTER CHANGES ARE NOTED. THERE IS NO NEW OR ACUTE INFARCT, INTRA OR EXTRA-AXIAL HEMORRHAGE, MASS OR MASS EFFECT. THE 3RD AND 4TH VENTRICLES ARE PROPORTIONATE IN SIZE. SOME CEREBELLAR ATROPHY IS NOTED. NO POSTERIOR FOSSA MASS, HEMORRHAGE OR INFARCT. BASAL CISTERNS ARE INTACT. MASTOIDS VISUALIZED SINUSES ARE CLEAR. SOME MINOR ATHEROSCLEROTIC CALCIFICATIONS IN THE CAROTID SIPHONS. CALVARIUM AND SKULL BASE ARE WITHOUT FRACTURE OR FOCAL LESION. VISUALIZED PORTIONS OF ORBITS AND CONTENTS GROSSLY INTACT. IMPRESSION: CHRONIC SMALL VESSEL ISCHEMIC CHANGES. 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 NO NEW OR ACUTE INFARCT, INTRACRANIAL HEMORRHAGE, MASS OR MASS EFFECT. VENTRICULOMEGALY PROPORTIONATE TO MODERATELY SEVERE DIFFUSE ATROPHY. MASTOIDS, VISIBLE SINUSES, SKULL BASE AND CALVARIUM WITHOUT ACUTE FINDING. <Electronically signed by King Reyes > 06/30/20 [id number]
[2020-06-30] MEDS ORDERED: RENATAB5 PO (11:59)
[2020-06-30] MEDS ORDERED: GABA-1171 PO (11:59)
[2020-06-30] MEDS ORDERED: OMEP-221 PO (11:59)
[2020-06-30 12:13] LABS: HEMATOCRIT 31.5 % (36.0-47.0); HEMOGLOBIN 10.2 g/dl (12.0-15.5); MEAN CORPUSCULAR HEMOGLOBIN 32.5 pg (27.0-33.0); MEAN CORPUSCULAR HGB CONC 32.4 g/dl (32.0-36.5); MEAN CORPUSCULAR VOLUME 100.3 fl (80.0-96.0); PLATELET COUNT, AUTOMATED 257 10^3/uL (150-450); RED BLOOD COUNT 3.14 10^6/uL (4.00-5.40)
[2020-06-30] MEDS ORDERED: D 1010004 PO (12:30)
[2020-06-30] MEDS ORDERED: FURO20TA2 PO (12:30)
[2020-06-30] MEDS ORDERED: AMIT50TA PO (12:30)
[2020-06-30] MEDS ORDERED: DILT120T PO (12:30)
[2020-06-30] MEDS ORDERED: POLY17PO18 PO (12:30)
[2020-06-30] MEDS ORDERED: AURY1TAB PO (12:30)
[2020-06-30] MEDS ORDERED: ACETAMINOPHEN 325 MG TAB PO ONE (12:30)
[2020-06-30 14:10] VITALS: BP 170/77
== END 2020-06-30 14:06 | disposition home or self-care (01) ==
LOC: M ED 11:22 → EDBD 11:22 → M ED 14:06
DX: R51.9 Headache, unspecified (principal); I48.91 Unspecified atrial fibrillation; I50.9 Heart failure, unspecified; N18.6 End stage renal disease; Z99.2 Dependence on renal dialysis; Z88.6 Allergy status to analgesic agent; Z91.013 Allergy to seafood; Z91.018 Allergy to other foods; Z98.84 Bariatric surgery status

== ENCOUNTER 2020-07-17 12:57 | Inpatient (IN) | payer MEDICARE, OTHER ==
[~2020-07-17] VITALS: Ht 167.6 cm; Wt 96.2 kg
[2020-07-17] VITALS (15 sets, daily range): BP systolic 95–162; BP diastolic 53–70; O2SAT 100
[~2020-07-17 12:57] MED LIST changes: +D 1010004 PO; +DILT120T PO; -FLON1SPR; +FLON1SPR NARES; +FURO20TA2 PO; +OMEP-221 PO; +POLY17PO18 PO
[2020-07-17 13:46] LABS: BASO % 0.3 % (0.0-1.0); EOS # 0.1 10^3/uL (0.0-0.5); EOS % 0.9 % (0.0-3.0); HEMATOCRIT 32.8 % (36.0-47.0); HEMOGLOBIN 10.1 g/dl (12.0-15.5); LYMPH # 0.6 10^3/uL (1.5-5.0); MEAN CORPUSCULAR HGB CONC 30.8 g/dl (32.0-36.5); MEAN CORPUSCULAR VOLUME 103.8 fl (80.0-96.0); MONO # 0.8 10^3/uL (0.0-0.8); MONO % 6.4 % (2.0-8.0); NEUTROPHILS # 10.1 10^3/uL (1.5-8.5); NEUTROPHILS % 86.6 % (36.0-66.0); PLATELET COUNT, AUTOMATED 346 10^3/uL (150-450); RED BLOOD COUNT 3.16 10^6/uL (4.00-5.40); WHITE BLOOD COUNT 11.6 10^3/uL (4.0-10.0)
--- NOTE | 2020-07-17 14:03 | REP ---
INDICATION: FALL. COMPARISON: Comparison head CT study June 30, 2020.. TECHNIQUE: Helical scanning is acquired. 5 mm axial images were reformatted. Coronal MPR images were generated. FINDINGS: Bone window settings demonstrate an intact bony calvarium. There is no evidence of skull fracture or incidental bony calvarial lesion. The visualized paranasal sinuses appear clear. No intraorbital abnormality is seen. On soft tissue window setting images; the lateral, third, and fourth ventricles are normal in size and position. Figueroa-white differentiation pattern is normal above and below the tentorium. There are is no evidence of intracranial hemorrhage. No mass, edema, infarction, or midline shift is seen. No extra-axial fluid collection is appreciated. Some vascular calcification is again observed in the distal internal carotid arteries. There is moderate generalized volume loss. There is a small old infarct in the region of the right insular subcortical white matter unchanged from the prior study. There is no evidence of acute intracranial hemorrhage or infarction. No mass, extra-axial fluid collection or midline shift is seen. IMPRESSION: Old white matter infarct on the right beneath the insular cortex unchanged. Generalized volume loss and vascular calcification again noted. No acute intracranial abnormality. No skull fracture seen.. <Electronically signed by Gage Fuentes > 07/17/20 [id number]
--- NOTE | 2020-07-17 14:09 | REP ---
INDICATION: FALL. COMPARISON: Comparison CT study of the cervical spine is from June 25, 2020.. TECHNIQUE: Helical scanning is acquired and overlapping 2 mm high resolution axial images were generated and reviewed at bone and soft tissue window settings. Coronal and sagittal multiplanar re-formations images are generated. FINDINGS: There is reversal of normal cervical lordosis. Degenerative spondylosis changes are again noted. There is old fusion of the C5-6 disc again noted. There is a stable C4-5 degenerative anterior subluxation. And erosive up and osteoarthritic changes are seen at this C1-2 facets bilaterally. Alignment is unchanged from the most recent study of 06/25/2020. There is no evidence of fracture or collapse. There is osteoarthritic facet disease in the mid cervical spine left greater than right. No hematoma is appreciated. There is pleural fluid visible in the right lung apex. This is slightly more prominent than on the prior study.. IMPRESSION: Advanced degenerative spondylosis changes including erosive facet osteoarthritis at C1-2 bilaterally unchanged from the recent prior study. Fusion of the C5-6 disc and stable mild degenerative anterior subluxation of C4 on C5 again seen. No change from comparison study. Small amount of right pleural fluid is visible at the right lung apex.. <Electronically signed by Gage Fuentes > 07/17/20 [id number]
[2020-07-17 14:33] LABS: ALT/SGPT 15 U/L (12-78); BILIRUBIN,DIRECT 0.2 MG/DL (0.0-0.2); BILIRUBIN,TOTAL 0.7 MG/DL (0.2-1.0); BLOOD UREA NITROGEN 20 MG/DL (7-18); CALCIUM LEVEL 8.6 MG/DL (8.8-10.2); CARBON DIOXIDE LEVEL 31 MEQ/L (21-32); CHLORIDE LEVEL 99 MEQ/L (98-107); CK-MB VALUE MASS 1.2 NG/ML (<3.6); CPK CREATINE PHOSPHOKINASE 71 U/L (26-192); CREATININE FOR GFR 2.67 MG/DL (0.55-1.30); GLOMERULAR FILTRATION RATE 18.4 (>39); GLUCOSE, FASTING 111 MG/DL (70-100); MB/CK RELATIVE INDEX 1.69 (< OR =4); POTASSIUM SERUM 4.3 MEQ/L (3.5-5.1); SODIUM LEVEL 137 MEQ/L (136-145); TOTAL PROTEIN 5.9 GM/DL (6.4-8.2); TROPONIN I < 0.02 NG/ML (< 0.10)
--- NOTE | 2020-07-17 14:58 | REP ---
INDICATION: chest wall bruising right. COMPARISON: Comparison chest x-ray 29 April 2020. TECHNIQUE: Portable upright AP chest radiograph. FINDINGS: Right hemidiaphragm remains somewhat elevated. There is linear fibrosis in the left perihilar region and some fissural thickening is noted on the right. Cardiomegaly is observed. There are surgical clips in the left upper quadrant of the abdomen. Monitoring electrodes and oxygen delivery tubing are seen. Findings are unchanged from comparison radiograph and 26 April 2020. There is no evidence of pneumothorax or hydrothorax. No acute bony abnormality is appreciated.. IMPRESSION: Cardiomegaly. Elevated right hemidiaphragm. Linear fibrosis left perihilar region and fissural thickening on the right unchanged.. <Electronically signed by Gage Fuentes > 07/17/20 [id number]
--- NOTE | 2020-07-17 15:21 | REP ---
INDICATION: fall, possible rib fracture, possible pneumonia. COMPARISON: Comparison chest CT study January 20, 2020.. TECHNIQUE: Helical scanning is acquired. 3 mm axial images are generated. Coronal and sagittal MPR and coronal MIP images are generated. FINDINGS: Axial CT images demonstrate a moderate right pleural effusion. This is increased but not new when compared with the prior study of January 20, 2020. There is a small amount of left pleural fluid visible today as well. There is no evidence of pneumothorax on either side. No definite contusion or infiltrate is seen. No visible rib fracture is seen. Cardiomegaly is observed. Vascular calcification is seen. There is a stable low-density area in the posterior segment of the right lobe of the liver consistent with a cyst. This is unchanged. Surgical clips are noted in the upper abdomen. Polycystic kidneys are visible at the bottom of the imaging field of view. The extra thoracic soft tissues demonstrate a chest wall hematoma in the sub pectoral soft tissues. The hematoma measures 4.8 cm in right to left by 1.8 cm in thickness by 5.1 cm craniocaudal. There is edema in the right axillary and adjacent right chest wall and right breast soft tissues extending off the imaging field of view. No other localized hematoma is appreciated. No adjacent rib fracture is seen. No shoulder girdle fracture is appreciated. IMPRESSION: 1. Moderate-sized right pleural effusion increased from the prior study January 20, 2020. 2. Subpectoral chest wall hematoma on the right anterolaterally as above measuring 5.1 cm in greatest diameter. 3. Cardiomegaly. Small amount of left pleural fluid. Polycystic kidney disease. <Electronically signed by Gage Fuentes > 07/17/20 [id number]
[2020-07-17] MEDS ORDERED: PERCOCET 5MG/325MG TAB PO PRN ×2 (16:15)
[2020-07-17] MEDS ORDERED: ONDANSETRON 4MG/2ML VIAL IV PRN (16:15)
[2020-07-17] MEDS ORDERED: LEVALBUTEROL 1.25 MG/0.5 ML CONCENTRATE NEB NEB PRN (16:15)
[2020-07-17] MEDS ORDERED: ACETAMINOPHEN TAB 650MG DOSE (2X325MG) PO PRN (16:15)
[2020-07-17] MEDS ORDERED: BISACODYL 10 MG SUPP PR PRN (16:15)
[2020-07-17] MEDS ORDERED: NORCO, ANEXSIA 5/325MG TABLET (HYDROcodone/ACETAMINOPHEN) PO PRN (16:15)
[2020-07-17] MEDS ORDERED: flumazeniL 0.5 MG/5 ML VIAL As Ordered ONE (16:31)
[2020-07-17] MEDS ORDERED: LIDOCAINE 1% MDV 20ML VIAL As Ordered ONE (16:32)
[2020-07-17] MEDS ORDERED: MIDAZOLAM INJ 2MG/2ML VIAL (J2250 PER 1MG) As Ordered ONE (16:32)
[2020-07-17] MEDS ORDERED: D5W/0.9% SODIUM CHLORIDE 1,000 ML IV SCH (17:00)
[2020-07-17] MEDS ORDERED: RENA1TAB3 PO (17:34)
[2020-07-17] MEDS ORDERED: ZINC220CA PO (17:34)
[2020-07-17] MEDS ORDERED: AURY1TAB PO (17:34)
[2020-07-17] MEDS ORDERED: DIVA250T67 PO (17:34)
[2020-07-17] MEDS ORDERED: ATOR1TAB21 PO (17:34)
[2020-07-17] MEDS ORDERED: POLY1POW38 PO (17:34)
[2020-07-17] MEDS ORDERED: AMIT50TA PO (17:34)
[2020-07-17] MEDS ORDERED: FURO20TA2 PO (17:34)
[2020-07-17] MEDS ORDERED: ASPI81TA26 PO (17:34)
[2020-07-17] MEDS ORDERED: flumazeniL 0.5 MG/5 ML VIAL IV STA (17:49)
[2020-07-17] MEDS ORDERED: LIDOCAINE 1% MDV 20ML VIAL SC ONE (17:50)
[2020-07-17] MEDS ORDERED: MIDAZOLAM INJ 2MG/2ML VIAL (J2250 PER 1MG) IV ONE (17:50)
--- NOTE | 2020-07-17 17:50 | HPEPDOC ---
[facility] Medical History & Physical Date of Admission Jul 17, 2020 Date of Service: Jul 17, 2020 History and Physical CHIEF COMPLAINT: SHORTNESS OF BREATH HISTORY OF PRESENT ILLNESS:79 yo F with a PMHx of ESRD on HD TTS, afib (on AC with xarelto), HTN, Hypothyroidism, GERD, neuropathy, pulmonary HTN, presented to ER with worsening shortness of breath and altered mental status. 3 days ago, after she had completed dialysis, patient fell while getting into the shower and landed on her R back, where she developed a large ecchymosis. Per her , her mobility has been declining. Her last diaylsis session was on 07/16/20. She was coherent during dialysis, but was becoming more confused. On arrival to the ER, patient was hypoxic and required 2L NC to maintain saturation. WBC 11.6. Hgb 10.1. PLT 346. Na 137. K 4.3. CT chest showed a moderate R sided pleural effusion, concern for hemothorax. Dr. Mendes was consulted from ER, chest tube placed. Patient will be admitted to hospitalist service for management of alter ed mental status. PMHx: A. 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 Bilateral kidney stone, removed. Bilateral breast benign nodule removed. Hysterectomy Cholecystectomy Appendectomy FHx: Mother: DM type II. at 88 y/o Father: Kidney problems. in 60's. SOCIALHx: Denies smoking, drug use. Social alcohol use, 20-30 ounces alcohol daily (red wine). At baseline can use cane and walker. She is a full code. ALLERGIES: Please see below. REVIEW OF SYSTEMS: 10 point ROS was conducted, relevant findings are noted in the HPI HOME MEDICATIONS: Please see below. PHYSICAL EXAMINATION: VITAL SIGNS: please see below General: NAD, comfortable HEENT: PERRLA Neck: supple, normal ROM, no JVD Respiratory: fair air entry in L lung bases, R lung well aerated after chest tube insertion. CVS: regular, tachycardic, normal S1, S2, no murmurs Abdo: soft, no masses, no hepatosplenomegaly, BS+, no rebound tenderness Extremities: 1+ pitting edema. Skin: deep tissue injury on skin overlying sacrum MSK: no joint deformities, normal ROM Neuro: unable to complete comprehensive neuro exam, patient is altered, unable to comply. Answers to her name, moving all 4 extremities. Psych: calm, cooperative, AAO x 3 LABORATORY DATA: See below. IMAGING: CT chest (07/17/20): 1. Moderate-sized right pleural effusion increased from the prior study January 20, 2020. 2. Subpectoral chest wall hematoma on the right anterolaterally as above measuring 5.1 cm in greatest diameter. 3. Cardiomegaly. Small amount of left pleural fluid. Polycystic kidney disease. CT c-spine (07/17/20): Advanced degenerative spondylosis changes including erosive facet osteoarthritis at C1-2 bilaterally unchanged from the recent prior study. Fusion of the C5-6 disc and stable mild degenerative anterior subluxation of C4 on C5 again seen. No change from comparison study. Small amount of right pleural fluid is visible at the right lung apex.. CT head wo contrast (07/17/20): Old white matter infarct on the right beneath the insular cortex unchanged. Generalized volume loss and vascular calcification again noted. No acute intracranial abnormality. No skull fracture seen.. CXR (07/17/20): Cardiomegaly. Elevated right hemidiaphragm. Linear fibrosis left perihilar region and fissural thickening on the right unchanged.. MICROBIOLOGY: Please see below. ASSESSMENT: 79 yo F with a PMHx of ESRD on HD TTS, afib (on AC with xarelto), HTN, Hypothyroidism, GERD, neuropathy, pulmonary HTN, presented to ER with worsening shortness of breath and altered mental status. Found to have a moderate R sided pleural effusion, for which a chest tube was placed by Dr. Mendes. . PLAN: Altered mental status possible 2/2 metabolic encephalopathy vs hypoxia - CT head on 07/17/20 without acute abnormality - endorses hx of frequent falls with head injury - patient had last MRI on 04/26/20 which showed chronic microvascular disease with old small lacunar infarcts - infectious workup pending including blood cultures, UA with cx, pleural effusion cultures and gram stain - TSH elevated at 10, check free T4. Sinus tachycardia - in setting of R pleural effusion, hypoxia - will check 2D echo, assess for contractility, wall motion and to r/o pericardial effusion - no pericardial effusion seen on CT chest R pleural effusion, suspected hemothorax given bruising - Dr. Mendes consulted from ER - Chest tube placed on 07/17/20, drained 1000cc of serosanguinous fluid without gross blood - Hgb 10.1. A. fib (on Anticoagulation with Xarelto) - HR slightly elevated at 110-112 in ER, denies chest pain or palpitations, shortness of breath -C/w diltiazem - d/w Dr. Mendes, Hgb 10.1 (baseline) No gross blood seen in pleural effusion - ok to resume xarelto per Dr. Mendes Lactic acidosis - possible related to sepsis vs increase work of breathing - empiric vancomycin at this time Hx of concussion? - per being followed by Dr. Torres - history is vague, it appears she is being seen for headaches - will c/w depakote, speak to neuro for clarification HTN -Stable -C/w home med ESRD on HD (TTS) -Cr at baseline -Nephrology consulted, Dr. 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 Xarelto. Code status: FULL CODE per . Vital Signs Vital Signs Date Time Temp Pulse Resp B/P (MAP) Pulse Ox O2 Delivery O2 Flow Rate FiO2 07/17/20 16:31 141/62 (88) 07/17/20 16:30 113 94 07/17/20 14:12 Room Air 07/17/20 13:42 14 2.0 07/17/20 12:59 98.0 Laboratory Data Labs 24H Laboratory Tests 2 07/17/20 13:20: Immature Granulocyte % (Auto) 0.8, Neutrophils (%) (Auto) 86.6H, Lymphocytes (%) (Auto) 5.0L, Monocytes (%) (Auto) 6.4, Eosinophils (%) (Auto) 0.9, Basophils (%) (Auto) 0.3, Neutrophils # (Auto) 10.1H, Lymphocytes # (Auto) 0.6L, Monocytes # (Auto) 0.8, Eosinophils # (Auto) 0.1, Basophils # (Auto) 0.0, Nucleated Red Blood Cells % (auto) 0.0, Anion Gap 7L, Glomerular Filtration Rate 18.4L, Calcium Level 8.6L, Total Bilirubin 0.7, Direct Bilirubin 0.2, Aspartate Amino Transf (AST/SGOT) 27, Alanine Aminotransferase (ALT/SGPT) 15, Alkaline Phosphatase 297H, Ammonia 31, Total Creatine Kinase 71, Creatine Kinase MB 1.2, Creatine Kinase MB Relative Index 1.69, Troponin I < 0.02, Total Protein 5.9L, Albumin 2.0L, Albumin/Globulin Ratio 0.5L, Thyroid Stimulating Hormone (TSH) 10.000H 07/17/20 13:28: Bedside Glucose (Misc Panel) 97 07/17/20 13:29: POC Glucose (Misc Panel) 113H, POC Sodium (Misc Panel) 132L, POC Potassium (Misc Panel) 5.8H, POC Chloride (Misc Panel) 97L, POC Total CO2 (Misc Panel) 35.0H, POC Blood Urea Nitrogen (Misc Panel 26, POC Ionized Calcium (Misc Panel) 4.0L, POC Creatinine (Misc Panel) 2.9H, POC Hematocrit (Misc Panel) 31.0L 07/17/20 13:31: POC Troponin I (Misc) 0.03 07/17/20 13:33: Lactic Acid Level 2.8*H 07/17/20 14:26: POC pH (Misc Panel) 7.456H, POC Base Excess (Misc Panel) 9.0H, POC Saturated Percent O2 (Misc) 100H, POC pO2 (Misc Panel) 172.0H, POC pCO2 (Misc Panel) 46.2H, POC HCO3 (Misc Panel) 32.6H, POC Total CO2 (Misc Panel) 34.0H CBC/BMP Laboratory Tests 07/17/20 13:20 Microbiology Microbiology 07/17/20 Respiratory Virus Panel (PCR) (SANTOS), Received Pending 07/17/20 Blood Culture, Received Pending 07/17/20 Blood Culture, Received Pending Home Medications Scheduled Amitriptyline HCl (Amitriptyline HCl) 50 Mg Tablet, 50 MG PO QHS Apixaban (Eliquis) 5 Mg Tablet, 5 MG PO BID Aspirin (Aspirin EC) 81 Mg Tablet.dr, 81 MG PO DAILY Atorvastatin Calcium (Atorvastatin Calcium) 20 Mg Tablet, 20 MG PO DAILY Cholecalciferol (Vitamin D3) (Vitamin D3) 25 Mcg Capsule, 25 MCG PO DAILY Diltiazem HCl (Diltiazem HCl) 120 Mg Tablet, 120 MG PO TID Divalproex Sodium (Divalproex Sodium) 250 Mg Tablet.dr, 250 MG PO BID Ferric Citrate (Auryxia) 210 Mg Tablet, 420 MG PO WM Fexofenadine HCl (Mali Allergy) 180 Mg Tab, 180 MG PO DAILY Folic Acid/Vit B Complex and C (Renal-Lucero Tablet) 0.8 Mg Tablet, 1 TAB PO DAILY Furosemide (Furosemide) 20 Mg Tablet, 20 MG PO DAILY Gabapentin (Gabapentin) 300 Mg Cap, 300 MG PO QHS Gabapentin (Gabapentin) 100 Mg Capsule, 100 MG PO BID QAM, NOON. Levothyroxine Sodium (Synthroid) 175 Mcg Tab, 175 MCG PO DAILY Lidocaine/Prilocaine (Lidocaine-Prilocaine Cream) 2.5%/2.5% Cream..g., 1 DOSE TOP 3XW SATURDAY, SATURDAY AND SATURDAY PRIOR TO DIALYSIS Melatonin (Melatonin) 10 Mg Tablet, 10 MG PO QHS Ubidecarenone (Co Q-10) 200 Mg Capsule, 200 MG PO DAILY Zinc Sulfate (Zinc Sulfate) 220 Mg Capsule, 220 MG PO DAILY Scheduled PRN Fluticasone Propionate (Flonase Allergy Relief) 50 Mcg/Act Spr, 1 SPRAY NARES DAILY PRN for NASAL CONGESTION Omeprazole (Omeprazole) 40 Mg Capsule.dr, 40 MG PO DAILY PRN for HEARTBURN Polyethylene Glycol 3350 (Polyethylene Glycol 3350) 17 Gm Powd.pack, 17 GM PO DAILY PRN for CONSTIPATION Allergies Coded Allergies: Ryan (Unverified Allergy, Severe, ANAPHYLAXIS, 07/16/17) FISH (Unverified Allergy, Severe, ANAPHYLAXIS, 01/28/17) TAPE (Verified Allergy, Mild, ADHESIVES-RASH AND REDNESS, 01/28/17) Contrast Media (Verified Allergy, Unknown, PATIENT STATES SHE CAN TOLERATE PO, 04/26/20) FRUIT (Verified Allergy, Unknown, FRUIT WITH fuzzy SKIN, 04/26/20) iodine (Verified Allergy, Unknown, 12/30/19) codeine (Verified Adverse Reaction, Mild, stomach upset, 01/19/20) A-FIB/CHADSVASC A-FIB History Current/History of A-Fib/PAF?: Yes Current PO Anticoag Therapy: Yes MALATHI HOLLIDAY MD Jul 17, 2020 17:50
[2020-07-17] MEDS ORDERED: FLUTICASONE PROP 0.05% NASAL SPRAY 16 GM (FLONASE) NARES PRN (18:10)
[2020-07-17] MEDS: MOM 30ML SUSPENSION UDC PO SCH (18:27)
[2020-07-17] MEDS: LEVALBUTEROL 1.25 MG/0.5 ML CONCENTRATE NEB NEB SCH (18:29)
[2020-07-17] MEDS ORDERED: SLF 3 ML SYR IV PRN (18:30)
[2020-07-17 18:33] LABS: PH BODY FLUID > 7.800 UNITS (NOT ESTABLISHED); SOURCE, BODY FLUID pH PLEURAL
[2020-07-17] MEDS ORDERED: MAALOX 30 ML SUSP *UDC PO PRN (18:40)
[2020-07-17 19:00] LABS: FREE T4 0.96 NG/DL (0.76-1.46)
[2020-07-17 19:32] LABS: SOURCE, BODY FLUID PLEURAL
[2020-07-17 19:33] LABS: APPEARANCE, BODY FLUID TURBID (CLEAR); PLEURAL FL COLOR PINK (COLORLESS)
--- NOTE | 2020-07-17 20:11 | REPVR ---
PROCEDURE INFORMATION: Exam: XR Chest Exam date and time: 07/17/2020 5:47 PM Age: 79 years old Clinical indication: Device placement; Chest tube; Additional info: Chest tube insertion TECHNIQUE: Imaging protocol: XR of the chest. Views: 1 view. COMPARISON: CT Chest without contrast 07/17/2020 3:00 PM FINDINGS: Lungs: Infiltrate at the left lung base, possibly chronic with scarring/atelectasis demonstrated laterally in the left lower lobe. Pleural spaces: Unremarkable. No pleural effusion. No pneumothorax. Heart/Mediastinum: Cardiomegaly. Bones/joints: Unremarkable. IMPRESSION: 1. Cardiomegaly. 2. Infiltrate at the left lung base, possibly chronic with scarring/atelectasis demonstrated laterally in the left lower lobe. Electronically signed by: Brad Palafox On 07/17/2020 20:12:38 PM
[2020-07-17] MEDS ORDERED: VANCOMYCIN HCL 1,000 MG, VIAL MATE ADAPTER 1 EACH in NS 250 ML IV SCH (20:20)
[2020-07-17] MEDS: APIXABAN 5 MG TAB (ELIQUIS) PO SCH (21:00)
[2020-07-17] MEDS ORDERED: VANCOMYCIN HCL 750 MG, VIAL MATE ADAPTER 1 EACH in NS 250 ML IV ONE ×2 (21:00→22:00)
[2020-07-17] MEDS: DOCUSATE SODIUM 100MG CAPSULE PO SCH (21:00)
[2020-07-17] MEDS: DIVALPROEX 250 MG TAB PO SCH (21:00)
[2020-07-17] MEDS ORDERED: HEPARIN SOD (PORCINE) 5000UNITS/ML 1ML VIAL/SYRINGE SC SCH (21:00)
[2020-07-17 21:17] LABS: AMYLASE, BODY FLUID 7 U/L (NOT ESTABLISHED); CHOLESTEROL, BODY FLUID < 50 MG/DL (NOT ESTABLISHED); LDH, BODY FLUID 66 U/L (NOT ESTABLISHED); SOURCE, BODY FLUID ALBUMIN PLEURAL; SOURCE, BODY FLUID AMYLASE PLEURAL; SOURCE, BODY FLUID CHOL PLEURAL; SOURCE, BODY FLUID GLUCOSE PLEURAL; SOURCE, BODY FLUID LDH PLEURAL; SOURCE, BODY FLUID TOT PROTEIN PLEURAL; SOURCE, BODY FLUID TRIG PLEURAL; TOTAL PROTEIN, BODY FLUID 1.3 G/DL (NOT ESTABLISHED); TRIGLYCERIDE, BODY FLUID 29 MG/DL (NOT ESTABLISHED)
[2020-07-17] MEDS: SLF 3 ML SYR IV SCH (22:00)
[2020-07-18] VITALS (16 sets, daily range): BP systolic 113–140; BP diastolic 56–94; O2SAT 92–100
[2020-07-18] MEDS: LEVALBUTEROL 1.25 MG/0.5 ML CONCENTRATE NEB NEB SCH ×4 (01:06→20:00)
[2020-07-18 05:44] LABS: ABG BASE EXCESS 5.2 (-2.0-2.0); ABG HCO3 28.7 MEQ/L (22.0-26.0); ABG O2 SATURATION 97.7 % (95.0-99.0); ABG PARTIAL PRESSURE CO2 37.7 mmHg (35.0-45.0); ABG PARTIAL PRESSURE O2 114.8 mmHg (75.0-100.0); ABG STANDARD HCO3 29.2 MEQ/L (22.0-26.0); ABG TOTAL CO2 29.9 MEQ/L (23.0-31.0)
[2020-07-18 05:52] LABS: BASO % 0.2 % (0.0-1.0); EOS % 0.1 % (0.0-3.0); HEMATOCRIT 29.9 % (36.0-47.0); HEMOGLOBIN 9.1 g/dl (12.0-15.5); LYMPH # 0.4 10^3/uL (1.5-5.0); MEAN CORPUSCULAR HEMOGLOBIN 31.9 pg (27.0-33.0); MEAN CORPUSCULAR HGB CONC 30.4 g/dl (32.0-36.5); MEAN CORPUSCULAR VOLUME 104.9 fl (80.0-96.0); MONO # 0.9 10^3/uL (0.0-0.8); MONO % 7.2 % (2.0-8.0); NEUTROPHILS # 11.1 10^3/uL (1.5-8.5); NEUTROPHILS % 88.9 % (36.0-66.0); PLATELET COUNT, AUTOMATED 288 10^3/uL (150-450); RED BLOOD COUNT 2.85 10^6/uL (4.00-5.40); WHITE BLOOD COUNT 12.5 10^3/uL (4.0-10.0)
[2020-07-18] MEDS ORDERED: LEVOTHYROXINE 150MCG TABLET (0.15MG) PO SCH (06:00)
[2020-07-18] MEDS: LEVOTHYROXINE 75MCG TABLET (0.075MG) PO SCH (06:00)
[2020-07-18] MEDS: LEVOTHYROXINE 100MCG TABLET (0.1MG) PO SCH (06:00)
[2020-07-18] MEDS: SLF 3 ML SYR IV SCH ×3 (06:00→22:45)
[2020-07-18 06:24] LABS: CALCIUM LEVEL 8.3 MG/DL (8.8-10.2); CREATININE FOR GFR 3.14 MG/DL (0.55-1.30); GLOMERULAR FILTRATION RATE 15.3 (>39); POTASSIUM SERUM 3.9 MEQ/L (3.5-5.1); VANCOMYCIN RANDOM 20.6 UG/ML
[2020-07-18] MEDS ORDERED: METOPROLOL 5 MG/5 ML VIAL IV ONE ×2 (08:00→12:00)
[2020-07-18] MEDS: METOPROLOL 5 MG/5 ML VIAL IV SCH ×2 (08:05→08:10)
--- NOTE | 2020-07-18 08:18 | REP ---
INDICATION: Chest tube COMPARISON: 07/17/2020 TECHNIQUE: Portable AP view of the chest FINDINGS: Right chest tube in stable position with miniscule residual right apical pneumothorax. Subtle scattered bilateral linear fibroatelectatic changes (left greater than right) similar to prior examination. No obvious new acute process appreciated. IMPRESSION: Stable findings as described above. Miniscule residual right apical pneumothorax suspected. <Electronically signed by Carmine Johnson > 07/18/20 [id number]
[2020-07-18] MEDS: DOCUSATE SODIUM 100MG CAPSULE PO SCH ×2 (09:00→20:55)
[2020-07-18] MEDS: APIXABAN 5 MG TAB (ELIQUIS) PO SCH (09:00)
[2020-07-18] MEDS: DIVALPROEX 250 MG TAB PO SCH (09:00)
[2020-07-18] MEDS: ASPIRIN 81MG ENTERIC TABLET PO SCH (09:00)
[2020-07-18] MEDS ORDERED: PANTOPRAZOLE 40MG TAB (PROTONIX) PO SCH (09:00)
[2020-07-18] MEDS: MOM 30ML SUSPENSION UDC PO SCH (09:00)
[2020-07-18] MEDS: OMEPRAZOLE 20 MG CAP PO SCH (09:00)
--- NOTE | 2020-07-18 09:09 | CR ---
CONSULTATION DATE: 07/17/2020 REASON FOR CONSULTATION: The patient is seen at the request of Dr. Slade in the emergency room along with the hospital service for mental status changes with a pleural effusion after a fall. HISTORY OF PRESENT ILLNESS: The patient is a 79-year-old white female who is very confused and cannot give me history. Almost all of the history is taken from her . The immediate story starts about five days ago when she fell in the shower hitting her back and side on a stool in the shower. Since then, she has gotten less coherent and more somnolent. In the last 24 hours, she has hardly eaten. He states that she has a cough, but no sputum production. The cough is not new. She has developed ecchymosis on her right side and back, which is very tender to the touch as he tries to move her. She also complains of pain in that distribution. He does not perceive that she has been short of breath. PAST MEDICAL HISTORY: 1. Atrial fibrillation. 2. Hypertension. 3. End-stage renal disease requiring hemodialysis. 4. GERD. 5. Prior history of a lunar infarct seen on a CT scan done on her last admission in late April again for altered mental status after hemodialysis. 6. Hypothyroidism. 7. Loss of balance over the past seven months. 8. Multiple falls over the past seven months. PAST SURGICAL HISTORY: 1. Gastric bypass in 1977. 2. Removal of bilateral renal stones. 3. Bilateral breast biopsies of benign pathology. 4. Hysterectomy. 5. Cholecystectomy. 6. Appendectomy. HABITS: Does not smoke. Does not use illicit drugs. She has alcohol on a social basis a glass a day of red wine. TRAVEL HISTORY: Not obtained. OCCUPATIONAL HISTORY: Not obtained. REVIEW OF SYSTEMS: Not obtainable. FAMILY HISTORY: Mother of diabetes at 88 years old. Father in his 60s had kidney disease. PHYSICAL EXAMINATION: GENERAL APPEARANCE: Obese, well-developed, seemingly well-nourished white female obtunded. Unable to give a history. She does not know time or place, but does know self. VITAL SIGNS: Temperature 98.3, pulse 94 in atrial fibrillation, respiratory rate of 16 without the use of accessory muscles who is 97% saturated on room air. Blood pressure is 170/77. EYES: Pupils equal, round, and reactive to light. Extraocular movements intact. Sclerae nonicteric. NOSE: Without deformity. MOUTH: Shows her mucous membranes to be pink and moist. Lips and commisures without lesions. NECK: Supple. There is no jugular venous distention and no subcutaneous emphysema. Trachea is midline. HEAD: Normocephalic. There is no evidence of trauma. LUNGS: Show rales and rhonchi on the left and right side paradoxically more on the left than the right. Percussion note is full to the diaphragm as far as I can tell. She has a large ecchymosis over her lateral chest wall and her back. CARDIAC: Shows an irregular rate and rhythm with either a rub or a systolic murmur heard best at the apex. I think it is more likely a murmur. ABDOMEN: Soft and nontender. Bowel sounds are positive, but hypoactive. I cannot detect hepatomegaly through her obesity. EXTREMITIES: Show 2+ pretibial edema on the right and 3+ on the left. There is no calf tenderness that I can elicit and there is no differential swelling of the upper extremities. SKIN: Warm, dry, and perfuse without cyanosis or mottling including that of the nail beds and knees. NEUROLOGIC: Shows her to be able to move all extremities, but not to command. Gait of course is not tested. PSYCHIATRIC: Shows her to be obtunded and confused. INVESTIGATIONS: Her white count is 11.6 with a hemoglobin and hematocrit of 10.1 and 32.8; this is unchanged from 06/30 when her hemoglobin and hematocrit were 10.2 and 31.5. Platelet count is 346,000, which is slightly increased from her 06/30 platelet count of 257,000. Differential shows 86% neutrophils, 5% lymphocytes, and 6% monocytes. There are no immature forms and no toxic granulations. Her chemistries show normal electrolytes with a BUN and creatinine of 20 and 2.67. Glucose is 111. Calcium is 8.6 with an albumin of 2.0. AST and ALT are normal and her bilirubin is normal. Her lactic acid is 2.8. TSH is 10.0. Her chest x-ray done in the ER portably is not impressive for a pleural effusion on the right side. She is a bit rotated. There may be some blunting of the right costophrenic angle. CT scan, however, showed a moderate pleural effusion. It also shows what looks to be subpectoral swelling probably a hematoma that would explain her large ecchymosis. It is done without contrast. She has extensive coronary artery disease. I do not see any rib fractures on the right side. I cannot make out if she has an enlarged IVC. It looks as though her hepatic venous system is dilated, however. Her spleen is intact. It looks as though she has polycystic kidneys. Pancreas is intact. CT scan of her head done without contrast does not show an acute bleed. She has cerebral atrophy. Her echocardiogram done in late April before being discharged from the hospital showed a left intraventricular ejection fraction of 50% with moderate mitral insufficiency with severe tricuspid insufficiency with an estimated right ventricular systolic pressure of 56 mmHg. IMPRESSION: 1. Obtundation and mental status changes of unknown causes right now. 2. Pleural effusion possibly hemothorax without a profound anemia. 3. Chest wall hematoma. 4. Hypothyroidism. 5. History of hypertension. 6. End-stage renal disease requiring dialysis. 7. Mitral regurgitation. 8. Tricuspid regurgitation. 9. Coronary artery disease. 10. History of lacunar infarct. 11. Gastroesophageal reflux disease (GERD). PLAN AND DISCUSSION: From a thoracic surgical point of view, I will place a chest tube to drain her pleural effusion and possible hemothorax. I have already talked to the hospitalist, Dr. Gauthier, and they are going to get the renal service involved. I will leave the medical care to the hospitalist service.
--- NOTE | 2020-07-18 09:19 | ECGEPIP ---
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
--- NOTE | 2020-07-18 09:23 | RO ---
OPERATIVE NOTE DATE OF OPERATION: 07/17/2020 PREPROCEDURE DIAGNOSIS: Hemothorax. POSTPROCEDURE DIAGNOSIS: Serous pleural effusion. PROCEDURE: Insertion of posterolateral right chest tube. SURGEON: Duane Mendes M.D. RECORDS COORDINATOR: None. ANESTHESIA: 2 mg Versed. DESCRIPTION OF PROCEDURE: Under satisfactory moderate sedation achieved with 2 mg of Versed, the patient was prepped and draped in the usual sterile fashion. Incision was made in the inframammary fold just in and around the sixth intercostal space. A tunnel was created in the chest over the 7th rib. A #24 chest tube was placed without difficulty and he eluded 1000 mL of serous fluid. This was sent for the requisite studies of hematologies, cytologies, bacteriologies, and chemistries. Chest tube was secured to the chest wall with a #2 Tevdek suture and attached to the Pleur-Evac. The patient tolerated the procedure well. A chest x-ray is pending.
[2020-07-18 13:19] LABS: BASO % 0.2 % (0.0-1.0); EOS % 0.2 % (0.0-3.0); HEMATOCRIT 27.4 % (36.0-47.0); HEMOGLOBIN 8.6 g/dl (12.0-15.5); LYMPH # 0.4 10^3/uL (1.5-5.0); LYMPH % 3.9 % (24.0-44.0); MEAN CORPUSCULAR HEMOGLOBIN 32.3 pg (27.0-33.0); MEAN CORPUSCULAR HGB CONC 31.4 g/dl (32.0-36.5); MONO # 0.8 10^3/uL (0.0-0.8); MONO % 7.3 % (2.0-8.0); NEUTROPHILS # 9.5 10^3/uL (1.5-8.5); NEUTROPHILS % 87.8 % (36.0-66.0); PLATELET COUNT, AUTOMATED 315 10^3/uL (150-450); RED BLOOD COUNT 2.66 10^6/uL (4.00-5.40); WHITE BLOOD COUNT 10.8 10^3/uL (4.0-10.0)
[2020-07-18] MEDS ORDERED: LIDOCAINE 1% MDV 20ML VIAL As Ordered ONE (13:53)
[2020-07-18 14:22] LABS: FOLATE 19.7 NG/ML (>5.4)
[2020-07-18] MEDS ORDERED: SODIUM CHLORIDE 0.9% INJ 10 ML SYR IV PRN (15:10)
[2020-07-18] MEDS ORDERED: CEFEPIME HCL 2 GM in D5W MINI-BAG PLUS 50 ML IV SCH (15:15)
[2020-07-18 15:41] LABS: TROPONIN I < 0.02 NG/ML (< 0.10); VALPROIC ACID (DEPAKOTE) 20.7 UG/ML (50.0-100.0)
[2020-07-18 15:42] LABS: THYROID PEROXIDASE ANTIBODY 67.1 U/ML (<60.0)
[2020-07-18] MEDS ORDERED: VANCOMYCIN HCL 1,000 MG, VIAL MATE ADAPTER 1 EACH in NS 250 ML IV SCH (16:00)
[2020-07-18] MEDS ORDERED: **VANCO AFTER HD** MISC XX SCH (16:00)
[2020-07-18] MEDS ORDERED: CEFEPIME HCL 1 GM in D5W MINI-BAG PLUS 50 ML IV SCH (16:00)
[2020-07-18] MEDS ORDERED: DIGOXIN INJ 0.5 MG/2 ML AMP (J1160) IV ONE (16:15)
[2020-07-18] MEDS ORDERED: bisoproloL fumarate 5 MG TAB PO ONE (16:20)
[2020-07-18] MEDS: SODIUM CHLORIDE 0.9% INJ 10 ML SYR IV SCH (16:44)
--- NOTE | 2020-07-18 17:26 | IPNPDOC ---
Date Seen The patient was seen on 07/18/20. Progress Note SUBJECTIVE: Patient was seen and examined this morning at bedside. She remains altered response to tactile stimuli and saying her name. She squeezes my hand on command but is otherwise nonverbal, unable to answer questions. Her chest tube put out approximately 700 mL overnight. Contrast is serosanguineous, slightly more blood content. Hemoglobin diminished from 10.1-8.6. Patient is anuric due to end-stage renal disease and dialysis. Patient is afebrile overnight. Currently requiring 2 L of nasal cannula to saturate above 92%. OBJECTIVE PHYSICAL EXAMINATION: VITAL SIGNS: please see below General: NAD, comfortable HEENT: PERRLA, EOMI, sclerae clear. no nuchal rigidity Neck: supple, normal ROM, no JVD Respiratory: The lung bases, right lung reinflated, some crackles and rales. Chest tube in place. No air leak CVS: Irregularly irregular, tachycardic, heart rate 130s, possible murmur versus rub. Difficult to auscultate clearly due to body habitus Abdo: soft, no masses, no hepatosplenomegaly, BS+, no rebound tenderness Extremities: no edema, pulses 2+ MSK: no joint deformities, normal ROM Neuro: no focal neuro deficits, moving all 4 extremities, CN2-12 intact. Strength 5/5 in all 4 extremities. No nystagmus. Psych: calm, cooperative, AAO x 3 LABORATORY DATA, IMAGING STUDIES, MICROBIOLOGY: Please see below. CT chest (07/17/20): 1. Moderate-sized right pleural effusion increased from the prior study January 20, 2020. 2. Subpectoral chest wall hematoma on the right anterolaterally as above measuring 5.1 cm in greatest diameter. 3. Cardiomegaly. Small amount of left pleural fluid. Polycystic kidney disease. CT c-spine (07/17/20): Advanced degenerative spondylosis changes including erosive facet osteoarthritis at C1-2 bilaterally unchanged from the recent prior study. Fusion of the C5-6 disc and stable mild degenerative anterior subluxation of C4 on C5 again seen. No change from comparison study. Small amount of right pleural fluid is visible at the right lung apex.. CT head wo contrast (07/17/20): Old white matter infarct on the right beneath the insular cortex unchanged. Generalized volume loss and vascular calcification again noted. No acute intracranial abnormality. No skull fracture seen.. CXR (07/17/20): Cardiomegaly. Elevated right hemidiaphragm. Linear fibrosis left perihilar region and fissural thickening on the right unchanged.. Echocardiogram: completed on 07/18/20 pending report. DVT prophylaxis ordered?: heparin. eliquis held to due acute anemia. TEDs. ASSESSMENT AND PLAN: 79 yo F with a PMHx of ESRD on HD TTS, afib (on AC with xarelto), HTN, Hypothyroidism, GERD, neuropathy, pulmonary HTN, presented to ER with worsening shortness of breath and altered mental status. Found to have a moderate R sided pleural effusion, for which a chest tube was placed by Dr. Mendes. . PLAN: Altered mental status possible 2/2 metabolic encephalopathy possible due to sepsis - CT head on 07/17/20 without acute abnormality - endorses hx of frequent falls with head injury - patient had last MRI on 04/26/20 which showed chronic microvascular disease with old small lacunar infarcts - infectious workup pending including blood cultures, UA with cx, pleural effusion cultures and gram stain - if no improvement, will require lumbar puncture - reports patient had hematuria and frequent UTIs - straight cath for urine, send for UA with cx - c/w with empiric abx at this time. Vanc, cefepime. - TSH elevated at 10, free T4 wnl. Pending thyroid perixodase antibodies studies. - presently on empiric vancomycin and cefepime Atrial fibrillation with RVR likely exacerbated by sepsis vs hypoxia vs pericardial effusion - in setting of R pleural effusion, hypoxia - will check 2D echo, assess for contractility, wall motion and to r/o pericardial effusion - no pericardial effusion seen on CT chest - stop cardizem in setting heart failure - given 0.5 mg IV digoxin. D/w Dr. Nagy, agrees. Recommended placing NGT, and to give bisoprolol 5 mg PO - Dr. Ngay recommends to c/w bisoprolol 5 mg bid and digoxin 0.25 mg 3x week given ESRD - rate well controlled on above regimen R pleural effusion, suspected hemothorax given bruising - Dr. Mendes consulted from ER - Chest tube placed on 07/17/20, drained 1000cc of serosanguinous fluid without gross blood - total op 1700cc Elevated BNP - in setting of ESRD - possible CHF - check 2D ECHO - avoid CCBs Lactic acidosis - in setting of likely sepsis, although source at this time unknown - vancomycin, add cefepime. Hx of concussion? - per being followed by Dr. Torres - history is vague, it appears she is being seen for headaches - I spoke to Dr. Sanabria, reports patient is being seen for migraines and unsteady gait - last MRI in 05/22 with microvascular changes - recommends EEG, repeat MRI wo contrast - hold depakote due to AMS - levels low HTN -Stable -stop diltiazem ESRD on HD (TTS) -Cr at baseline -Nephrology consulted, Dr. 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 Xarelto. Code status: FULL CODE per . VS, I&O, 24H, Fishbone Vital Signs/I&O Vital Signs Date Time Temp Pulse Resp B/P (MAP) Pulse Ox O2 Delivery O2 Flow Rate FiO2 07/18/20 16:43 109 113/57 07/18/20 16:00 97.3 18 96 Nasal Cannula 2.0 I&O- Last 24 Hours up to 6 AM 07/18/20 06:00 Intake Total 1250 ml Output Total 1750 ml Balance -500 ml Laboratory Data 24H LABS Laboratory Tests 2 07/17/20 17:34: Body Fluid pH > 7.800, Body Fluid pH Source PLEURAL, Body Fluid WBC (Auto) 217H, Body Fluid RBC (Auto) 17, Body Fluid Mononuclear Cells % Auto 44.7H, Fluid Polymorphonuclear Cell % Auto 55.3H, Body Fluid Glucose Source PLEURAL, Body Fluid Glucose 98, Body Fluid Protein Source PLEURAL, Body Fluid Total Protein 1.3, Body Fluid Albumin Source PLEURAL, Body Fluid Albumin 0.4, Body Fluid LDH Source PLEURAL, Body Fluid Lactate Dehydrogenase 66, Body Fluid Amylase Source PLEURAL, Body Fluid Amylase 7, Body Fluid Cholesterol < 50, Body Fluid Cholesterol Source PLEURAL, Body Fluid Triglyceride Source PLEURAL, Body Fluid Triglycerides 29, Pleural Fluid Source PLEURAL, Pleural Fluid Color PINK, Pleural Fluid Appearance TURBID 07/17/20 18:12: Lactic Acid Followup at 4 Hours 2.2*H, Lactate Dehydrogenase 237, Free Thyroxine 0.96 07/18/20 05:10: Immature Granulocyte % (Auto) 0.6, Neutrophils (%) (Auto) 88.9H, Lymphocytes (%) (Auto) 3.0L, Monocytes (%) (Auto) 7.2, Eosinophils (%) (Auto) 0.1, Basophils (%) (Auto) 0.2, Neutrophils # (Auto) 11.1H, Lymphocytes # (Auto) 0.4L, Monocytes # (Auto) 0.9H, Eosinophils # (Auto) 0.0, Basophils # (Auto) 0.0, Nucleated Red Blood Cells % (auto) 0.0, Anion Gap 9, Glomerular Filtration Rate 15.3L, Calcium Level 8.3L, Vitamin B12 Level 1267H, Folate 19.7, Random Vancomycin Level 20.6 07/18/20 05:36: Blood Gas Bicarbonate Standard 29.2H, Arterial Blood pH 7.500H, Arterial Blood Partial Pressure CO2 37.7, Arterial Blood Partial Pressure O2 114.8H, Arterial Blood Total CO2 29.9, Arterial Blood HCO3 28.7H, Arterial Blood Base Excess 5.2H, Arterial Blood Oxygen Saturation 97.7 07/18/20 08:42: Immature Granulocyte % (Auto) 0.6, Neutrophils (%) (Auto) 87.8H, Lymphocytes (%) (Auto) 3.9L, Monocytes (%) (Auto) 7.3, Eosinophils (%) (Auto) 0.2, Basophils (%) (Auto) 0.2, Neutrophils # (Auto) 9.5H, Lymphocytes # (Auto) 0.4L, Monocytes # (Auto) 0.8, Eosinophils # (Auto) 0.0, Basophils # (Auto) 0.0, Nucleated Red Blood Cells % (auto) 0.0, Lactic Acid Level 1.1, CH-Pwn-S-Type Natriuretic Pept maria eugenia [id number] 07/18/20 12:30: Procalcitonin 0.82 07/18/20 12:52: Troponin I < 0.02, Valproic Acid (Depakene) Level 20.7L, Thyroid Peroxidase Antibodies 67.1H 07/18/20 14:49: Lab Scanned Report Miscellaneous Lab CBC/BMP Laboratory Tests 4/19/21 05:10 07/18/20 08:42 Microbiology Microbiology 07/17/20 Acid Fast Stain, Received Pending 07/17/20 Mycobacterial Culture, Received Pending 07/17/20 Fungal Smear, Received Pending 07/17/20 Fungal Culture, Received Pending 07/17/20 Gram Stain - Final, Resulted 07/17/20 Anaerobic Culture, Resulted Pending 07/17/20 Body Fluid Culture, Received Pending 07/17/20 Respiratory Virus Panel (PCR) ([facility]) - Final, Complete 07/17/20 Blood Culture - Preliminary, Resulted No growth after 24 hours . All specim... 07/17/20 Blood Culture - Preliminary, Resulted No growth after 24 hours . All specim... MALATHI HOLLIDAY MD Jul 18, 2020 17:26
--- NOTE | 2020-07-18 17:36 | REP ---
INDICATION: NG placement COMPARISON: 07/18/2020 at 8:02 a.m. TECHNIQUE: Portable AP view of the chest FINDINGS: Right chest tube in stable position. A nasogastric tube is identified extending just beyond the diaphragmatic silhouette with side port above the gastroesophageal junction. Right PICC line with tip in the SVC. Chronic interstitial changes are appreciated along with scattered alveolar and interstitial infiltrates which may be increased from prior examination. The mediastinum and cardiac silhouette are stable. The right apex is excluded from the examination and previously noted small right apical pneumothorax cannot be evaluated. IMPRESSION: 1. Nasogastric tube may warrant advancement. 2. Subtle increased interstitial and subtle alveolar opacities cannot be excluded. 3. As above. <Electronically signed by Carmine Johnson > 07/18/20 [id number]
[2020-07-18 19:35] LABS: BASO % 0.2 % (0.0-1.0); EOS # 0.1 10^3/uL (0.0-0.5); EOS % 0.6 % (0.0-3.0); HEMATOCRIT 28.4 % (36.0-47.0); HEMOGLOBIN 8.9 g/dl (12.0-15.5); LYMPH # 0.5 10^3/uL (1.5-5.0); MEAN CORPUSCULAR HEMOGLOBIN 32.4 pg (27.0-33.0); MEAN CORPUSCULAR HGB CONC 31.3 g/dl (32.0-36.5); MEAN CORPUSCULAR VOLUME 103.3 fl (80.0-96.0); MONO # 0.9 10^3/uL (0.0-0.8); MONO % 8.6 % (2.0-8.0); NEUTROPHILS # 8.4 10^3/uL (1.5-8.5); NEUTROPHILS % 84.9 % (36.0-66.0); PLATELET COUNT, AUTOMATED 282 10^3/uL (150-450); RED BLOOD COUNT 2.75 10^6/uL (4.00-5.40); WHITE BLOOD COUNT 9.9 10^3/uL (4.0-10.0)
--- NOTE | 2020-07-18 19:40 | REP ---
INDICATION: ngt advanced COMPARISON: 07/18/2020 at 5:14 p.m. TECHNIQUE: Portable AP view of the chest FINDINGS: Right chest tube in stable position. Right PICC line with tip in the SVC. Nasogastric tube extends just below the left hemidiaphragm and again may warrant advancement. Lung raines again demonstrate chronic changes with superimposed interstitial/alveolar infiltrates and possible left lower lobe opacity versus chronic change. IMPRESSION: 1. Nasogastric tube may warrant continued advancement to ensure that the side port is below the left hemidiaphragm. 2. Lung raines again demonstrate increased interstitial markings and subtle airspace disease. Left lower lobe/retrocardiac opacification may represent chronic change versus infiltrate and or pleural fluid. 3. Right chest tube in stable position and small residual right apical pneumothorax cannot be excluded. <Electronically signed by Carmine Johnson > 07/18/201936
--- NOTE | 2020-07-18 21:57 | REPVR ---
PROCEDURE INFORMATION: Exam: MR Head Without Contrast Exam date and time: 07/18/2020 8:32 PM Age: 79 years old Clinical indication: Altered mental status/memory loss; Confusion or disorientation; Additional info: AMS, chronic headaches, jerky movements TECHNIQUE: Imaging protocol: MR of the head without contrast. COMPARISON: MRI-Brain without Contrast 04/26/2020 6:45 PM FINDINGS: Brain: There is mild cerebral volume loss. Changes of chronic white matter microvascular disease are present. No signs of a recent infarction or hemorrhage. Cerebral ventricles: Normal. No ventriculomegaly. Bones/joints: Unremarkable. Paranasal sinuses: Normal as visualized. No acute sinusitis. Mastoid air cells: Trace mastoid effusions. Orbital cavity: Unremarkable. Soft tissues: Unremarkable. IMPRESSION: Mild cerebral volume loss and chronic white matter changes. No acute intracranial abnormality. Electronically signed by: Sharad Juarez On 07/18/2020 21:58:09 PM
--- NOTE | 2020-07-18 22:33 | REPVR ---
PROCEDURE INFORMATION: Exam: XR Chest Exam date and time: 07/18/2020 10:24 PM Age: 79 years old Clinical indication: Device placement; Ng tube; Additional info: Recheck ng tube placement TECHNIQUE: Imaging protocol: XR of the chest. Views: 1 view. COMPARISON: CR Chest, 1 view 07/18/2020 7:15 PM FINDINGS: Tubes, catheters and devices: Nasogastric tube projects in the stomach. The tip of the right PICC line terminates in the mid SVC. Right chest tube is unchanged. Lungs: Mild dependent atelectasis or scarring in the lungs. No new airspace infiltrates.. Pleural spaces: Persistent small right apical pneumothorax. Heart/Mediastinum: Mild cardiomegaly. Bones/joints: Unremarkable. IMPRESSION: 1. Nasogastric tube projects in the stomach. 2. Small right apical pneumothorax. 3. Nasogastric tube extends into the stomach. Electronically signed by: Sharad Juarez On 07/18/2020 22:33:57 PM
[2020-07-18] MEDS: HEPARIN SOD (PORCINE) 5000UNITS/ML 1ML VIAL/SYRINGE SQ SCH (22:45)
[2020-07-19] VITALS (9 sets, daily range): BP systolic 106–140; BP diastolic 55–69; O2SAT 91–99
[2020-07-19] MEDS: LEVALBUTEROL 1.25 MG/0.5 ML CONCENTRATE NEB NEB SCH ×4 (01:21→20:15)
[2020-07-19] MEDS ORDERED: COSYNTROPIN 0.25 MG/ML VIAL (J0834 PER 0.25MG) IV ONE (06:00)
[2020-07-19 06:07] LABS: BASO % 0.3 % (0.0-1.0); EOS # 0.2 10^3/uL (0.0-0.5); EOS % 1.3 % (0.0-3.0); HEMATOCRIT 28.5 % (36.0-47.0); HEMOGLOBIN 8.8 g/dl (12.0-15.5); LYMPH # 0.4 10^3/uL (1.5-5.0); MEAN CORPUSCULAR HEMOGLOBIN 31.9 pg (27.0-33.0); MEAN CORPUSCULAR HGB CONC 30.9 g/dl (32.0-36.5); MEAN CORPUSCULAR VOLUME 103.3 fl (80.0-96.0); MONO # 0.8 10^3/uL (0.0-0.8); MONO % 6.7 % (2.0-8.0); NEUTROPHILS # 10.5 10^3/uL (1.5-8.5); NEUTROPHILS % 88.1 % (36.0-66.0); PLATELET COUNT, AUTOMATED 276 10^3/uL (150-450); RED BLOOD COUNT 2.76 10^6/uL (4.00-5.40); WHITE BLOOD COUNT 11.9 10^3/uL (4.0-10.0)
[2020-07-19] MEDS: LEVOTHYROXINE 100MCG TABLET (0.1MG) PO SCH (06:27)
[2020-07-19] MEDS: LEVOTHYROXINE 75MCG TABLET (0.075MG) PO SCH (06:27)
[2020-07-19] MEDS: SLF 3 ML SYR IV SCH ×3 (06:28→21:25)
[2020-07-19] MEDS: SODIUM CHLORIDE 0.9% INJ 10 ML SYR IV SCH ×2 (06:29→18:37)
[2020-07-19] MEDS: HEPARIN SOD (PORCINE) 5000UNITS/ML 1ML VIAL/SYRINGE SQ SCH ×2 (06:30→13:43)
--- NOTE | 2020-07-19 06:55 | REP ---
INDICATION: critical illness. COMPARISON: None. TECHNIQUE: The procedure was performed under the direct supervision of Dr. Fuentes. The risks and benefits of the procedure were explained to the patient and informed consent was obtained. The right basilic vein was localized using ultrasound guidance. The skin was prepped and draped in a sterile fashion. 2% lidocaine was used as a local anesthetic. Using ultrasound guidance the basilic vein was cannulated and a 0.018 guidewire was inserted and advanced to the SVC using fluoroscopic guidance. The needle was removed and a 5.5 [place]i dilator and peel-away sheath was inserted over the guide wire. A 5.5 [place]i dual lumen catheter was cut to length of 46 cm. The dilator was removed and the catheter was inserted over the guide wire with the tip ending in the SVC. The peel-away sheath was removed and the catheter was flushed with heparinized saline as per Hospital protocol. The catheter was affixed to the skin and a sterile dressing was applied. The patient tolerated the procedure well and there were no immediate complications. 0.2 minutes of fluoro time was utilized for this procedure. FINDINGS: None IMPRESSION: PICC line insertion right basilic vein with the tip ending in the SVC. <Electronically signed by Sherwin Arriaga > 07/18/20 [id number] <Electronically signed by Gage Fuentes > 07/19/20 [id number]
[2020-07-19 07:13] LABS: CALCIUM LEVEL 8.4 MG/DL (8.8-10.2); CREATININE FOR GFR 4.04 MG/DL (0.55-1.30); DIGOXIN LEVEL 1.3 NG/ML (0.5-2.0); GLOMERULAR FILTRATION RATE 11.4 (>39); POTASSIUM SERUM 4.1 MEQ/L (3.5-5.1)
--- NOTE | 2020-07-19 08:12 | IPN ---
PROGRESS NOTE DATE: 07/18/2020 SUBJECTIVE: Ms. Romero is still not cognitive and waking up. I walked in this afternoon and she aroused to her name, but does not follow commands. OBJECTIVE: VITAL SIGNS: Show a T-max of 98.2 with a heart rate that ranges between 78 and 130 in atrial fibrillation with a respiratory rate of 16 to 18 without the use of accessory muscles who is 94% to 100% saturated on 2 liters nasal cannula and whose blood pressure is ranging between 154/86 to 120/81. INTAKE AND OUTPUT: Over the past 24 hours has been recorded as 250 in and 1435 out for a negativity of 1185 mL. She has put 1435 mL out the chest tube. RESPIRATORY: Her lungs shows bilateral inspiratory rales and rhonchi. Percussion note is full to the diaphragm as far as I can tell through her obesity. CVA tenderness is not tested. She has presacral edema. CARDIAC: Shows again what could either be a pericardial friction rub or a systolic murmur. Difficult to ascertain with her atrial fibrillation. I cannot feel her PMI. S1 and S2 are normal. ABDOMEN: Soft and nontender. Bowel sounds are positive, but hypoactive. I cannot detect hepatomegaly through her obesity. EXTREMITIES: Show 1+ pretibial edema. No calf tenderness. There is increased edema below the compression stockings at the ankles. There is no differential swelling of the upper extremities. SKIN: Warm, dry, and perfused without cyanosis or mottling, including that of the nail beds and knees. NECK: Supple. There is no jugular venous distention. No subcutaneous emphysema. Trachea is midline. MOUTH: Shows the mucous membranes to be pink and moist. Lips and commisures are without lesions and no thrush. EYES: Show her pupils equal and reactive. Extraocular muscles are intact. Sclerae nonicteric. NEUROLOGIC: Shows her to be somnolence, but moves all extremities. PSYCHIATRIC: Shows her to be somnolent and barely responding to her name. LABORATORY DATA: Her white count is 10.8 with a hemoglobin and hematocrit of 8.6 and 27.4 down from 10.1 and 32.8 yesterday. Platelet count is 315,000 and differential shows 87% neutrophils, 4% lymphocytes, and 7% monocytes. There are no immature forms and no toxic granulations. Electrolytes are normal today with a BUN and creatinine of 24 and 3.14 and a glucose of 116. Calcium is 8.3. Her BNP is 16,693. Her pleural fluid drained yesterday shows a pH of greater than 7.8 with a glucose of 98 and an LDH of 66 with a corresponding serum LDH of 237. Total protein is 1.3 with a corresponding serum total protein of 5.9. Her pleural fluid white count is 217 with 44% mononuclears and 55% neutrophils. This looks like a transudative effusion probably more chronic in nature. It does not look to be exudative or infected being normoglycemic. IMAGING DATA: Her chest x-ray today shows the pleural effusion drained with a sharp right costophrenic angle. Heart size looks increased, although the film is rotated and it is a portable film. Left costophrenic angle also looks sharp. Echocardiogram has been ordered, but it is still pending. IMPRESSION: 1. Transudative pleural effusion. 2. Mental status change of unknown cause at this time. 3. Atrial fibrillation. 4. End-stage renal disease requiring hemodialysis. 5. Hypertension. 6. History of lacunar infarct. 7. Hypothyroidism. 8. History of gastric bypass in the remote past. 9. Gastroesophageal reflux disease. 10. Coronary artery disease. 11. Chest wall hematoma. PLAN AND DISCUSSION: I will keep her chest tube on suction. She is going down for an MRI later today. Neurology has also been consulted. I am very interested in seeing the results of the echocardiogram. At this point in time, I cannot explain her mental status changes and low cardiac output, as on physical examination she is well-perfused and has a good blood pressure. An EEG has also been ordered.
--- NOTE | 2020-07-19 08:29 | REP ---
INDICATION: Chest tube COMPARISON: 07/19/2019 TECHNIQUE: Portable AP view of the chest FINDINGS: Nasogastric tube extends below the left hemidiaphragm. Right PICC line with tip in the SVC. Right chest tube in stable position. Mild linear right lower lobe fibroatelectatic changes and left lower lobe opacities again noted and similar to prior examination. A small residual right apical pneumothorax cannot definitively be excluded. Cardiac silhouette is stable. IMPRESSION: 1. Lines and tubes in satisfactory position. 2. Bilateral lower lobe opacities essentially unchanged. <Electronically signed by Carmine Johnson > 07/19/20 [id number]
[2020-07-19] MEDS: bisoproloL fumarate 5 MG TAB PO SCH ×3 (08:56→22:20)
[2020-07-19] MEDS: OMEPRAZOLE 20 MG CAP PO SCH (08:57)
[2020-07-19] MEDS: DOCUSATE SODIUM 100MG CAPSULE PO SCH ×2 (09:00→20:59)
[2020-07-19] MEDS: ASPIRIN 81MG ENTERIC TABLET PO SCH (09:00)
[2020-07-19] MEDS: MOM 30ML SUSPENSION UDC PO SCH (09:00)
[2020-07-19 11:11] LABS: CORTISOL AM 23.5 UG/DL (4.3-22.4)
--- NOTE | 2020-07-19 13:09 | CR ---
NEPHROLOGY CONSULTATION DATE: 07/19/2020 REQUESTING CLINICIAN: Rohan Gauthier MD. REASONS FOR CONSULTATION: Assist in the management of end-stage renal disease. HISTORY OF PRESENT ILLNESS: Ms. Romero is a 77-year-old female with known history of end-stage renal disease, atrial fibrillation, hypertension, hypothyroidism, gastroesophageal reflux disease, peripheral neuropathy and pulmonary hypertension. She presented to the Emergency Room on July 17 with shortness of breath. She also had a fall at home. She was noticed to have a large pleural effusion on the right side and there was a concern for possible hemothorax. Patient was seen by Dr. Mendes from thoracic surgery and had a chest tube placed. A nephrology consultation was requested and patient is seen on her bedside. She is not able to provide any information as she is poorly responsive. PAST MEDICAL HISTORY: Significant for: 1. End-stage renal disease secondary to polycystic kidney disease. 2. Hypertension. 3. Atrial fibrillation. 4. Hypothyroidism. 5. History of peripheral neuropathy. 6. History of gastroesophageal reflux disease. 7. Prior history of lacunar infarcts. PAST SURGICAL HISTORY: Significant for: 1. Gastric bypass surgery in 1977. 2. Bilateral kidney stones removed. 3. Bilateral breast nodule removed. 4. Hysterectomy. 5. Cholecystectomy. 6. Appendectomy. 7. AV fistula creation for dialysis. FAMILY HISTORY: Mother with type-2 diabetes and father had kidney problems and in his 60s. Family history is significant for end-stage renal disease also in her family due to polycystic kidneys. PERSONAL AND SOCIAL HISTORY: Patient is not able to provide any information at this point. According to her chart she has no history of alcohol, drug or tobacco use. ALLERGIES: 1. RADIO CONTRAST. 2. IODINE. 3. TAPE. 4. FISH. 5. ORTEGA. MEDICATIONS: Home medications include: 1. Amitriptyline 50 mg at bedtime. 2. Eliquis 5 mg twice a day. 3. Aspirin 81 mg daily. 4. Atorvastatin 20 mg daily. 5. Vitamin D 25 mcg daily. 6. Diltiazem 120 mg three times a day. 7. Keppra 250 mg twice a day. 8. Auryxia 210 mg three times a day with meals. 9. [place] 180 mg daily. 10. Multivitamin 1 tablet daily. 11. Gabapentin 300 mg at bedtime. 12. Gabapentin 100 mg twice a day. 13. Levothyroxine 175 mcg daily. 14. Melatonin 10 mg at bedtime. 15. Zinc 220 mg daily. 16. CoQ10 200 mg daily. She also uses: 17. Omeprazole 40 mg p.r.n. or heartburn. 18. MiraLax p.r.n. for constipation. REVIEW OF SYSTEMS: At present review of systems is not possible as patient is not able to provide any information. She is barely arousable, but very disoriented and confused. PHYSICAL EXAMINATION: Elderly woman lying in the bed somewhat agitated and trying to remove mittens from her hands. Vital signs: Temperature 97 degrees Fahrenheit, heart rate 127 per minute, respiratory rate 18 per minute and blood pressure 115/55 mmHg. Oxygen saturation 97% on 1 liter oxygen. HEENT: Head is atraumatic. Oral mucosa is dry. She has a nasogastric tube in place. She is also using oxygen via nasal cannula. Neck: Supple and JVD not abnormally elevated. Heart: Irregular rhythm with tachycardia. Lungs: Diminished breath sounds on the right side where she also has a chest tube in place. Abdomen: Soft and bowel sounds are present. Extremities: Without any cyanosis or clubbing. Left arm AV fistula is patent. Neurologically: She is poorly responsive and somewhat agitated and restless. LABORATORY DATA: WBC count 11.9, hemoglobin 8.8, hematocrit 25.5 and platelets 276. A random vancomycin level on the was 20.6 and digoxin level 1.3 today. Sodium 142, potassium 4.1, CO2 30, BUN 38 and creatinine 4.04. Calcium level 8.4. IMAGING STUDIES: She had a chest x-ray done which showed bilateral lower lobe atelectasis and improved right pleural effusion with right sided chest tube. She also had an MRI of her brain done yesterday which showed mild cerebral volume loss and chronic changes, but no acute intracranial abnormality. PROBLEMS AND PLAN: 1. End-stage renal disease: Patient receives her maintenance hemodialysis on a Saturday, and Saturday schedule. She is due for dialysis today and we will go ahead and schedule her for dialysis this afternoon. She did have a large right pleural effusion; however, otherwise her volume status does not seem to be significantly decompensated. We will try to remove about 1.5 liters of fluid as tolerated. 2. Anemia: She has anemia of end-stage renal disease. At present no urgent need for transfusion. No significant foreign exchange clerk the last 24 hours. 3. Hypertension: Blood pressure is somewhat low and I would recommend to monitor closely. Her anti-hypertensives probably should be held before dialysis. 4. Atrial fibrillation: Yesterday she had rapid atrial fibrillation according to the nursing staff. She was given some intravenous metoprolol and then digoxin. Her heart rate seems to be slightly better controlled today. 5. Altered mentation: Etiology of her altered mentation is uncertain at this point. She certainly does not have any risk for uremia as she is very well dialyzed. Probably this is all toxic metabolic encephalopathy. We will see if dialysis helps to improve her mentation. She will probably need a sitter during dialysis as she is quite restless and agitated. Thank you for involving me in the care of Ms. Romero. I will follow her along with you.
--- NOTE | 2020-07-19 14:48 | IPNPDOC ---
Date Seen The patient was seen on 07/19/20. Progress Note SUBJECTIVE: More awake with loud verbal stimulation today than yesterday, tactile stimuli. Following commands. Chest tube remains in place, transudative cause of pleural effusion. Occult blood +, H/H slightly lower today at 8.8/27. Unable to get UA due to anuria. Has history of AMS/intermittent confusion upon reviewing old records- thought to be likely neurological cause (syncope vs orthostatic hypotension-possibly from fluctuating BP in dialysis?). EEG ordered, MRI neg. Patient denies chest pain, SOB currently. OBJECTIVE: PHYSICAL EXAMINATION: VITAL SIGNS: please see below General: NAD, yasir to arouse with loud verbal stimulation, tactile stimuli, following commands. HEENT: PERRLA, EOMI, sclerae clear. NG tube secured in place Neck: supple, normal ROM, no JVD Respiratory: The lung bases, right lung reinflated, some crackles and rales. Chest tube in place on right . No air leak CVS: Irregularly irregular, tachycardic, heart rate 109, possible murmur. Abdo: soft, no masses, no hepatosplenomegaly, BS+, no rebound tenderness Extremities: no edema, pulses 2+ MSK: no joint deformities, normal ROM Neuro: no focal neuro deficits, moving all 4 extremities, CN2-12 unable to be tested due to limited participation by patient. Strength 3/5 in all 4 extremities but patient is generally weak. No nystagmus seen. LABORATORY DATA: Please see below MICROBIOLOGY: BCx x 2 sets: NG Pleural fluid anaerobic GS and cx: NG Pleural fluid aerobic GS and Cx: NG Pleural fluid fungal GS and Cx: pending UA unable to be collected as patient is anuric Resp panel: Neg MRSA: neg IMAGING STUDIES: CXR 07/19/20: Nasogastric tube extends below the left hemidiaphragm. Right PICC line with tip in the SVC. Right chest tube in stable position. Mild linear right lower lobe fibroatelectatic changes and left lower lobe opacities again noted and similar to prior examination. A small residual right apical pneumothorax cannot definitively be excluded. Cardiac silhouette is stable. MRI brain 07/18/20: Mild cerebral volume loss and chronic white matter changes. No acute intracran ial abnormality. CT chest (07/17/20): 1. Moderate-sized right pleural effusion increased from the prior study January 20, 2020. 2. Subpectoral chest wall hematoma on the right anterolaterally as above measuring 5.1 cm in greatest diameter. 3. Cardiomegaly. Small amount of left pleural fluid. Polycystic kidney disease. CT c-spine (07/17/20): Advanced degenerative spondylosis changes including erosive facet osteoarthritis at C1-2 bilaterally unchanged from the recent prior study. Fusion of the C5-6 disc and stable mild degenerative anterior subluxation of C4 on C5 again seen. No change from comparison study. Small amount of right pleural fluid is visible at the right lung apex.. CT head wo contrast (07/17/20): Old white matter infarct on the right beneath the insular cortex unchanged. Generalized volume loss and vascular calcification again noted. No acute intracranial abnormality. No skull fracture seen.. CXR (07/17/20): Cardiomegaly. Elevated right hemidiaphragm. Linear fibrosis left perihilar region and fissural thickening on the right unchanged.. Echocardiogram: completed on 07/18/20 pending report. ASSESSMENT: 79 yo F with a PMHx of ESRD on HD TTS, afib (on AC with xarelto), HTN, Hypothyroidism, GERD, neuropathy, pulmonary HTN, presented to ER with worsening shortness of breath and altered mental status. PLAN: Altered mental status possible 2/2 neurological cause (seizures vs. syncope vs. intermittent orthostatic hypotension - admission in 04/2020 for very similar issue and was suspecting neuro cause)vs. infection (? HCAP). Cannot r/o autoimmune process. Hx of frequent falls, CVA, episodes of "blacking out" -WBC 11.9, procalcitonin elevated at 0.8, LA wnl -CT head, MRI this admission above -Blood cultures, pleural effusion cultures and gram stain NG -Unable to provide UA due to aneuria but hx of UTI's -AM cortisol was elevated so unsure why AI testing done -Thyroid peroxidase Ab elevated at 67.1, free T4 0.96, TSH 10 (slightly incr from last admission 8 in 04/2020) -Deescalating abx: C/w only with ceftriaxone for now. -F/u EEG -Neurology has been notified of patient, not officially consulted. Seeing Dr. Torres as o/p for fatigue, migraine headaches. They suggested MRI, EEG and holding depakote. Will attempt to discuss with endocrinology (Dr. Reeves). If no acute tx recommended, consider LP. Occult blood +, r/o GI bleed -H/H dropped, dark stool but no mert blood per nursing. -HD stable -Positive on 07/19/20 -Epixiban, ASA and heparin sc stopped -Monitor for s/s of bleeding, holding off on surgery consult for now -CBC Q12 H, PPI BID Atrial fibrillation with RVR -No identified infection, hx of elevated HR in prior admission with no sepsis. -HR ranging 80-115 -Stopped diltiazem this hospital stay due to CHF -Given 0.5 mg IV digoxin. D/w Dr. Nagy, agrees. Recommended placing NGT, and to give bisoprolol 5 mg PO -C/w bisoprolol 5 mg bid, digoxin 0.25 mg 3x week given ESRD Right side transudative pleural effusion s/p chest tube placement (07/17/20) -Likely 2/2 to chronic HFpEF -CXR today above -Dr. Mendes (CT surgery) following -O/p of chest tube decreasing daily, still on suction -f/u recommendations Chronic HFpEF -BNP 16K, improved from 23K from 04/2020 -Pleural effusion, fluid retention, ESRD patient -Old echo from 04/2020: EF 50%, refer to prior clinical partner -New echo pending -C/w HD, BB. Case discussed with Dr. Nagy. LLL opacity, inflammatory infiltrate/HCAP? vs. pulmonary vascular congestion 2/2 to CHF exacerbation -95% on 1 L NC, mild crackles b/l posterior lower lung raines, lower ext swe lling -CXR/CT chest above- not identified on CT chest -Procalcitonin 0.8, BNP 16K, improved from 23K . -F/u echocardiogram, repeat CXR in the AM. -Only on ceftriaxone for now. Previous admission similar findings and completed PO levofloxacin x 10 days. Consider starting again. -Ordered sputum sample -Not on lasix due to ESRD, c/w HD Hx of concussion / LOC/ "blacking out" -see problem #1 -Neurologically improving, no focal deficits -continue to hold depakote due to AMS per neuro, levels low -C/w plan above HTN -Stable ESRD on HD (TTS) -Cr at baseline -Nephrology consulted, Dr. Calvin Hypothyroidism -TSH 10, other abnormal thyroid tests above -TB with endocrinology if able to discuss -C/w synthroid for now Mood disorder -C/w home meds Peripheral neuropathy -C/w gabapentin Hx of lacular infarct/ CVA on CT head -Imaging neg this admission -Holding ASA due to ? GI bleed -C/w statin at home Carotid stenosis bilaterally -US carotid arterities 50-69% stenosis b/l -Vascular surgeon, Dr. Shea evaluted study, believes closer to 50% than 69% bilaterally. Can follow her up in 6 months as o/p with repeat duplex -Recent lipid panel unremarkable -C/w statin with hx of vasculopathy and prior CVA -Holding ASA with ? GI bleed GERD -C/w PPI BID DVT px -Holding xarelto due to ? GI bleed. SCDs, teds were cutting into skin causing severe cuts DISPOSITION: Call out to Dr. Reeves to possibly discuss case with her with elevated thyroid peroxidase Ab, EEG ordered. Will need PT/OT when more awake, alert. VS, I&O, 24H, Elisabeth Vital Signs/I&O Vital Signs Date Time Temp Pulse Resp B/P (MAP) Pulse Ox O2 Delivery O2 Flow Rate FiO2 07/19/20 12:00 96.8 113 16 140/65 (90) 95 Nasal Cannula 1.0 I&O- Last 24 Hours up to 6 AM 07/19/20 06:00 Intake Total 0 ml Output Total 810 ml Balance -810 ml Laboratory Data 24H LABS Laboratory Tests 2 07/18/20 14:49: Lab Scanned Report Miscellaneous Lab 07/18/20 19:18: Immature Granulocyte % (Auto) 0.7, Neutrophils (%) (Auto) 84.9H, Lymphocytes (%) (Auto) 5.0L, Monocytes (%) (Auto) 8.6H, Eosinophils (%) (Auto) 0.6, Basophils (%) (Auto) 0.2, Neutrophils # (Auto) 8.4, Lymphocytes # (Auto) 0.5L, Monocytes # (Auto) 0.9H, Eosinophils # (Auto) 0.1, Basophils # (Auto) 0.0, Nucleated Red Blood Cells % (auto) 0.0 07/19/20 02:57: Methicillin-Resist S.aureus DNA PCR NOT DETECTED 07/19/20 05:54: Immature Granulocyte % (Auto) 0.6, Neutrophils (%) (Auto) 88.1H, Lymphocytes (%) (Auto) 3.0L, Monocytes (%) (Auto) 6.7, Eosinophils (%) (Auto) 1.3, Basophils (%) (Auto) 0.3, Neutrophils # (Auto) 10.5H, Lymphocytes # (Auto) 0.4L, Monocytes # (Auto) 0.8, Eosinophils # (Auto) 0.2, Basophils # (Auto) 0.0, Nucleated Red Blood Cells % (auto) 0.0, Anion Gap 8, Glomerular Filtration Rate 11.4L, Calcium Level 8.4L, Cortisol AM Sample 23.5H, Digoxin Level 1.3 07/19/20 06:00: Cortisol Response to Stimulation Cortisol Baseline CBC/BMP Laboratory Tests 07/18/20 19:18 07/19/20 05:54 Microbiology Microbiology 07/19/20 Stool Occult Blood (SANTOS) - Final, Complete 07/17/20 Acid Fast Stain, Received Pending 07/17/20 Mycobacterial Culture, Received Pending 07/17/20 Fungal Smear, Received Pending 07/17/20 Fungal Culture, Received Pending 07/17/20 Gram Stain - Final, Complete 07/17/20 Anaerobic Culture - Final, Complete 07/17/20 Body Fluid Culture - Final, Complete 07/17/20 Respiratory Virus Panel (PCR) (SANTOS) - Final, Complete 07/17/20 Blood Culture - Preliminary, Resulted No growth after 24 hours . All specim... 07/17/20 Blood Culture - Preliminary, Resulted No growth after 24 hours . All specim... Current Medications Current Medications Medications (Trade) Dose Ordered Sig/So Route PRN Reason Start Time Stop Time Status Last Admin Dose Admin Acetaminophen (Tylenol Tab) 650 mg Q6HP PRN PO T > 101.5 or SANTILLAN 07/17/20 16:15 Acetaminophen/ Hydrocodone Bitart ([place], Anexsia 5/325) 1 tab Q3H PRN PO MILD PAIN (PS 1-4) 07/17/20 16:15 Al Hydrox/Mg Hydrox/Simethicone (Mylanta) 30 ml DAILY PRN PO DYSPEPSIA 07/17/20 18:40 Apixaban (Eliquis) 5 mg BID PO 07/17/20 21:00 07/18/20 15:18 DC Aspirin (Ecotrin) 81 mg DAILY PO 07/18/20 09:00 Bisacodyl (Dulcolax Suppository) 10 mg Q4HP PRN [place] CONSTIPATION 07/17/20 16:15 Bisoprolol Fumarate (Zebeta) 5 mg BID PO 07/19/20 09:00 07/19/20 08:56 Cefepime HCl 1 gm/ Dextrose 50 ml @ 100 mls/hr Q24H IV 07/18/20 16:00 07/18/20 16:08 Cefepime HCl 2 gm/ Dextrose 50 ml @ 100 mls/hr Q12H IV 07/18/20 15:15 07/18/20 15:25 DC Dextrose/Sodium Chloride 1,000 ml @ 75 mls/hr [id number] IV 07/17/20 17:00 07/18/20 07:37 DC 07/17/20 17:00 Digoxin (Lanoxin) 0.25 mg MoWeFr@0900 PO 07/20/20 09:00 Diltiazem HCl (Cardizem) 120 mg TID PO 07/17/20 21:00 07/18/20 16:16 DC Divalproex Sodium (Depakote) 250 mg BID PO 07/17/20 21:00 07/18/20 12:51 DC Docusate Sodium (Colace) 100 mg BID PO 07/17/20 21:00 Flumazenil (Romazicon) 0.2 mg STAT STAT IV 07/17/20 17:49 07/17/20 17:52 DC 07/17/20 17:59 Fluticasone Propionate (Flonase 0.05% Nasal [place]) 1 spray DAILY PRN NARES NASAL CONGESTION 07/17/20 18:10 Gabapentin (Neurontin) 100 mg BID NG 07/19/20 21:00 UNV Heparin Sodium (Heparin (Flush)) 200 units ASDIRECTED PRN IV SEE LABEL COMMENTS 07/18/20 15:10 Heparin Sodium (Heparin (Flush)) 200 units PICC IV 07/18/20 18:00 07/18/20 16:44 Heparin Sodium (Porcine) (Heparin) 5,000 units Q12H SC 07/17/20 21:00 07/17/20 18:26 DC Heparin Sodium (Porcine) (Heparin) 5,000 units Q8H SQ 07/18/20 22:00 07/19/20 13:43 Home Med (Med Rec Complete!) ASDIRECTED XX 07/17/20 17:35 07/17/20 17:43 DC Levalbuterol HCl (Xopenex Neb) 1.25 mg Q2HP PRN NEB WHEEZING 07/17/20 16:15 Levalbuterol HCl (Xopenex Neb) 1.25 mg RQ6H NEB 07/17/20 20:00 07/19/20 07:46 Levothyroxine Sodium (Synthroid) 75 mcg DAILY@06 PO 07/18/20 06:00 07/19/20 06:27 Levothyroxine Sodium (Synthroid) 100 mcg DAILY@06 PO 07/18/20 06:00 07/19/20 06:27 Levothyroxine Sodium (Synthroid) 175 mcg DAILY@06 PO 07/18/20 06:00 07/17/20 20:11 DC Magnesium Hydroxide (Milk Of Magnesia) 30 ml DAILY PO 07/17/20 09:00 Metoprolol Tartrate (Lopressor) 5 mg Q5M IV 07/18/20 08:00 07/18/20 08:11 DC 07/18/20 08:10 Non-Formulary Medication ( See Comment Field Below ) CHECK TO SEE IF THE PATIENT... DAILY@1600 XX 07/18/20 16:00 Omeprazole (PriLOSEC) 40 mg DAILY PO 07/18/20 09:00 07/19/20 08:57 Ondansetron HCl (ZOFRAN INJection) 4 mg Q4HP PRN IV NAUSEA 07/17/20 16:15 Oxycodone/ Acetaminophen (Percocet 5mg/ 325mg Tablet) 1 tab Q4H PRN PO MODERATE PAIN (PS 5-7) 07/17/20 16:15 Hold Oxycodone/ Acetaminophen (Percocet 5mg/ 325mg Tablet) 2 tab Q4H PRN PO SEVERE PAIN (PS 8-10) 07/17/20 16:15 Hold Pantoprazole Sodium (Protonix) 40 mg DAILY PO 07/18/20 09:00 07/17/20 18:24 DC Sodium Chloride (Saline Lock Flush) 2 ml ASDIRECTED PRN IV SEE LABEL COMMENTS 07/17/20 18:30 Sodium Chloride (Saline Lock Flush) 2 ml SLF IV 07/17/20 22:00 07/19/20 06:28 Sodium Chloride (Saline Lock Flush) 10 ml ASDIRECTED PRN IV SEE LABEL COMMENTS 07/18/20 15:10 Sodium Chloride (Saline Lock Flush) 10 ml PICC IV 07/18/20 18:00 07/19/20 06:29 Vancomycin HCl 1000 mg/IV Miscellaneous Supplies 1 each/ Sodium Chloride 270 ml @ 270 mls/hr HD IV 07/18/20 16:00 07/19/20 14:49 DC Vancomycin HCl 1000 mg/IV Miscellaneous Supplies 1 each/ Sodium Chloride 270 ml @ 270 mls/hr Q12H IV 07/17/20 20:20 07/17/20 21:10 DC Allergies Coded Allergies: Ryan (Unverified Allergy, Severe, ANAPHYLAXIS, 07/16/17) FISH (Unverified Allergy, Severe, ANAPHYLAXIS, 01/28/17) TAPE (Verified Allergy, Mild, ADHESIVES-RASH AND REDNESS, 01/28/17) Contrast Media (Verified Allergy, Unknown, PATIENT STATES SHE CAN TOLERATE PO, 04/26/20) FRUIT (Verified Allergy, Unknown, FRUIT WITH fuzzy SKIN, 04/26/20) iodine (Verified Allergy, Unknown, 12/30/19) codeine (Verified Adverse Reaction, Mild, stomach upset, 01/19/20) Vickie Hernandez MD Jul 19, 2020 14:48
[2020-07-19] MEDS ORDERED: cefTRIAXone SOD 1 GM in D5W MINI-BAG PLUS 50 ML IV SCH (16:00)
[2020-07-19 16:46] LABS: TOTAL T3 23.9 NG/DL (60.0-181.0)
[2020-07-19 18:00] LABS: HEMATOCRIT 30.9 % (36.0-47.0); HEMOGLOBIN 9.7 g/dl (12.0-15.5); MEAN CORPUSCULAR HEMOGLOBIN 31.6 pg (27.0-33.0); MEAN CORPUSCULAR HGB CONC 31.4 g/dl (32.0-36.5); MEAN CORPUSCULAR VOLUME 100.7 fl (80.0-96.0); PLATELET COUNT, AUTOMATED 351 10^3/uL (150-450); RED BLOOD COUNT 3.07 10^6/uL (4.00-5.40); WHITE BLOOD COUNT 13.8 10^3/uL (4.0-10.0)
[2020-07-19] MEDS ORDERED: methylPREDNISolone 1,000 MG, VIAL MATE ADAPTER 1 EACH in NS 250 ML IV SCH (18:00)
--- NOTE | 2020-07-19 20:20 | ECGEPIP ---
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
[2020-07-19] MEDS: GABAPENTIN 100 MG CAP NG SCH ×2 (21:00→21:24)
[2020-07-19] MEDS: PANTOPRAZOLE 40MG VIAL (C9113 PER 1) IV SCH (21:24)
[2020-07-20] VITALS (15 sets, daily range): BP systolic 91–153; BP diastolic 42–85; O2SAT 97–98
[2020-07-20] MEDS: LEVALBUTEROL 1.25 MG/0.5 ML CONCENTRATE NEB NEB SCH ×2 (02:11→08:21)
[2020-07-20] MEDS: SLF 3 ML SYR IV SCH ×3 (06:35→22:00)
[2020-07-20] MEDS: SODIUM CHLORIDE 0.9% INJ 10 ML SYR IV SCH ×2 (06:35→17:33)
[2020-07-20] MEDS: LEVOTHYROXINE 100MCG TABLET (0.1MG) PO SCH (06:36)
[2020-07-20] MEDS: LEVOTHYROXINE 75MCG TABLET (0.075MG) PO SCH (06:36)
[2020-07-20 07:02] LABS: HEMATOCRIT 33.7 % (36.0-47.0); HEMOGLOBIN 10.7 g/dl (12.0-15.5); MEAN CORPUSCULAR HEMOGLOBIN 32.3 pg (27.0-33.0); MEAN CORPUSCULAR HGB CONC 31.8 g/dl (32.0-36.5); MEAN CORPUSCULAR VOLUME 101.8 fl (80.0-96.0); PLATELET COUNT, AUTOMATED 416 10^3/uL (150-450); RED BLOOD COUNT 3.31 10^6/uL (4.00-5.40); WHITE BLOOD COUNT 22.5 10^3/uL (4.0-10.0)
[2020-07-20 07:25] LABS: CREATININE FOR GFR 2.75 MG/DL (0.55-1.30); GLOMERULAR FILTRATION RATE 17.8 (>39)
--- NOTE | 2020-07-20 08:37 | ECHO ---
DATE OF PROCEDURE: 07/18/2020 Age: 79 Gender: Female Height: 66 inches Weight: 209 pounds Body surface area: 2.04 m2 PATIENT LOCATION: Inpatient PCU, Room 3213. REFERRING PHYSICIAN: Rohan Gauthier MD. INDICATION: Murmur. MEASUREMENTS: 2D Measurements: RV 5.2 cm LV 4.3 cm Septum 1.2 cm Posterior wall 1.2 cm Aortic Root 3.6 cm LA 4.1 cm LVEF 60% Doppler Measurements: AV 2.08 m/s LVOT 0.98 m/s LVOT diameter 1.8 cm Mean AV systolic gradient 8 mmHg Dimensionless index 0.5 MV-E 114 Early mitral deceleration time 145 msec E prime medial 8.3, E prime lateral 10 Average E/E prime ratio 12.5/PCWP 17.3 mmHg PV 1.0 m/s Pulmonary artery acceleration time 100 msec RVSP 46 mmHg IVC 1.9 cm COMMENTS: Underlying atrial fibrillation with slightly rapid ventricular response averaging 110 BPM. Right bundle branch block. M-mode and two-dimensional echocardiography was performed with pulse, continuous wave, color flow, and tissue Doppler studies. Borderline left ventricular hypertrophy with septal wall motion abnormality believed to be due to right ventricular pressure overload. Other left ventricular wall segments move normally with preserved global resting left ventricular systolic function. Mildly dilated left atrium. Could not comment on LV diastolic function in light of atrial fibrillation, but currently estimated mean left atrial pressure is upper limits of normal. Moderately dilated right ventricle with right ventricular free wall hypokinesis and Doppler evidence of at least moderate pulmonary hypertension. Prominently dilated right atrium with IVC size upper limits of normal with adequate respiratory collapse, suggestive of central venous pressure upper limits of normal. Normal aortic dimensions. Moderate aortic valvular sclerosis without stenosis and only very mild insufficiency. Moderate mitral annular calcification without inflow tract obstruction, but [id number] insufficiency. Normal appearing tricuspid valve with severe tricuspid regurgitation. No apparent intracardiac mass. Miniscule posterior pericardial effusion with at least a small left pleural effusion. MTDD
[2020-07-20] MEDS: MOM 30ML SUSPENSION UDC PO SCH (09:00)
[2020-07-20] MEDS: CHLORHEXIDINE GLUCONATE 0.12 % 15ML UDC (PERIDEX ORAL RINSE) MT SCH ×2 (09:00→22:39)
[2020-07-20] MEDS: DOCUSATE SODIUM 100MG CAPSULE PO SCH ×2 (09:00→21:00)
[2020-07-20] MEDS: bisoproloL fumarate 5 MG TAB PO SCH ×2 (09:00→12:54)
[2020-07-20] MEDS ORDERED: DIGOXIN 0.25 MG TAB PO SCH (09:00)
--- NOTE | 2020-07-20 09:08 | REP ---
INDICATION: after chest tube insertion COMPARISON: 07/19/2020 TECHNIQUE: PA and lateral. FINDINGS: Right chest tube in stable position. Right PICC line with tip in the SVC. Nasogastric tube in satisfactory stable position. Mediastinum and cardiac silhouette along with bilateral lung raines are stable with continued evidence for scattered fibroatelectatic changes. Small right apical pneumothorax cannot be excluded. No obvious effusion. IMPRESSION: 1. Lines and tubes in stable satisfactory position. 2. Cannot exclude very small residual right pneumothorax. 3. Chronic stable appearing pleuroparenchymal changes. <Electronically signed by Carmine Johnson > 07/20/20 [id number]
--- NOTE | 2020-07-20 09:18 | REP ---
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 This CT examination was performed using the following dose reduction techniques: Automated exposure control, adjustment of mA and/or kv according to the patient's size, and use of iterative reconstruction technique. FINDINGS: Lung bases demonstrate right sided chest tube with small pneumothorax and mild bibasilar atelectasis and small pleural fluid. Left base demonstrates minimal atelectasis. The liver demonstrates a stable hypodensity in the posterior segment right lobe likely representing cyst and possible similar hypodense lesion in the lateral segment left lobe. Patient is status post cholecystectomy with compensatory intrahepatic and extrahepatic biliary ductal dilatation noted. Spleen, atrophic pancreas, and bilateral adrenal glands are normal. Diffuse bilateral polycystic kidney disease is again appreciated along with few nonobstructing intrarenal calculi and no evidence for acute perinephric stranding or hydroureteronephrosis. Patient is status post gastric bypass surgery and a nasogastric tube is identified within the residual portion of the stomach. Remainder of the small and large bowel demonstrates moderate fecal stasis and air-filled distended loops of bowel suggesting underlying ileus. No definite obstruction. Fecal impaction at the rectosigmoid is suggested distending to 8.1 cm diameter. No free air to suggest perforation. Pelvis demonstrates collapsed bladder and evidence for prior hysterectomy. No ascites. No free air. No adenopathy. Atherosclerotic changes to the aorta and vasculature noted without aneurysm. Skeletal structures demonstrate osteopenia and degenerative changes. There is asymmetric soft tissue stranding within the left flank of uncertain etiology. IMPRESSION: 1. Chronic appearing changes as described above. 2. Bowel pattern suggests ileus and moderate fecal impaction at the rectosigmoid. 3. No obvious acute abdominopelvic pathology appreciated. No ascites. No free air. No adenopathy. <Electronically signed by Carmine Johnson > 07/20/20 [id number]
[2020-07-20] MEDS ORDERED: NS 1,000 ML IV SCH ×2 (09:30→12:30)
[2020-07-20] MEDS: GABAPENTIN 100 MG CAP NG SCH (09:52)
[2020-07-20] MEDS: PANTOPRAZOLE 40MG VIAL (C9113 PER 1) IV SCH ×2 (09:52→22:35)
[2020-07-20] MEDS: LIOTHYRONINE 25 MCG TAB PO SCH (10:00)
[2020-07-20] MEDS ORDERED: PILL CUTTER 1 EACH XX PRN (10:00)
[2020-07-20 10:44] LABS: ABG BASE EXCESS -3.5 (-2.0-2.0); ABG HCO3 19.3 MEQ/L (22.0-26.0); ABG O2 SATURATION 98.4 % (95.0-99.0); ABG PARTIAL PRESSURE CO2 27.8 mmHg (35.0-45.0); ABG PARTIAL PRESSURE O2 121.6 mmHg (75.0-100.0); ABG STANDARD HCO3 21.5 MEQ/L (22.0-26.0); ABG TOTAL CO2 20.2 MEQ/L (23.0-31.0)
[2020-07-20] MEDS ORDERED: AMPICILLIN SOD/SULBACTAM SOD 3 GM in D5W MINI-BAG PLUS 100 ML IV SCH ×2 (11:00→12:00)
--- NOTE | 2020-07-20 11:01 | REP ---
INDICATION: change in mental status. COMPARISON: None. TECHNIQUE: Axial CT images with multiplanar reformations. FINDINGS: No acute bleed or acute large vessel territorial infarct. Ventricles, cisterns and sulci are within normal limits. No mass effect or midline shift. No abnormal fluid collections. Scattered ill-defined hypodensities seen throughout the white matter is most consistent with sequelae of chronic microvascular ischemic disease. Paranasal sinuses and mastoid air cells are clear. IMPRESSION: No acute findings. Age-related volume loss and white matter changes. <Electronically signed by Gustabo Gordillo > 07/20/20 105
[2020-07-20 11:19] LABS: ALBUMIN 1.6 GM/DL (3.2-5.2); BILIRUBIN,DIRECT 0.5 MG/DL (0.0-0.2); BILIRUBIN,TOTAL 0.9 MG/DL (0.2-1.0); TOTAL PROTEIN 5.6 GM/DL (6.4-8.2)
[2020-07-20] MEDS ORDERED: NOREPINEPHRINE 4 MG/4 ML AMP As Ordered ONE (11:21)
[2020-07-20] MEDS ORDERED: NOREPINEPHRINE BITARTRATE 8 MG in D5W 492 ML IV SCH (11:25)
[2020-07-20] MEDS ORDERED: NOREPINEPHRINE BITARTRATE 16 MG in D5W 484 ML IV SCH ×4 (11:30→23:30)
[2020-07-20] MEDS ORDERED: ETOMIDATE INJ 20MG/10ML VIAL As Ordered ONE (11:32)
[2020-07-20] MEDS ORDERED: ROCURONIUM BROMIDE 50 MG/5 ML VIAL As Ordered ONE (11:32)
[2020-07-20] MEDS ORDERED: IPRATROPIUM 0.5MG/ALBUTEROL 2.5MG INH SOL UD 3ML (DUONEB) NEB SCH (12:00)
[2020-07-20 12:07] LABS: ALBUMIN 1.5 GM/DL (3.2-5.2); CALCIUM LEVEL 7.7 MG/DL (8.8-10.2); CREATININE FOR GFR 2.96 MG/DL (0.55-1.30); GLOMERULAR FILTRATION RATE 16.4 (>39); POTASSIUM SERUM 5.7 MEQ/L (3.5-5.1); TOTAL PROTEIN 4.6 GM/DL (6.4-8.2)
--- NOTE | 2020-07-20 12:13 | REP ---
INDICATION: s/p intubation COMPARISON: 07/20/2020 at 8:35 a.m. TECHNIQUE: Portable AP view of the chest FINDINGS: Endotracheal tube 4 cm above the porfirio. Nasogastric tube, right chest tube, and PICC line are in stable position. Small residual right apical pneumothorax cannot be excluded along with mild basilar atelectasis (right greater than left). IMPRESSION: 1. Lines and tubes in satisfactory position. 2. Small residual right apical pneumothorax suggested along with mild basilar opacities. <Electronically signed by Carmine Johnson > 07/20/20 [id number]
[2020-07-20] MEDS ORDERED: VASOPRESSIN INJ 20 UNITS/ML VIAL As Ordered ONE (12:21)
[2020-07-20] MEDS ORDERED: VANCOMYCIN HCL 1,000 MG, VIAL MATE ADAPTER 1 EACH in NS 250 ML IV SCH (12:30)
[2020-07-20] MEDS ORDERED: ETOMIDATE INJ 20MG/10ML VIAL IV STA (12:39)
[2020-07-20] MEDS ORDERED: ROCURONIUM BROMIDE 50 MG/5 ML VIAL IV SCH (12:40)
--- NOTE | 2020-07-20 12:49 | RO ---
OPERATIVE NOTE DATE OF OPERATION: 07/20/2020 PREOPERATIVE DIAGNOSIS: Unresponsiveness, altered mental status, unable to protect airway. POSTOPERATIVE DIAGNOSIS: Unresponsiveness, altered mental status, unable to protect airway. PROCEDURE: Endotracheal intubation. SURGEON: Hank Bassett DO, FCCP NEGATIVE RESTORER: None ANESTHESIA: 20 Etomidate IV and 50 Rocuronium. DESCRIPTION OF PROCEDURE: After the patient was placed in the supine position her code status was confirmed with her by Dr. Hernandez as she was preoxygenated. RSI was then initiated with Etomidate followed by Rocuronium. The GlideScope #3 was used to view the posterior pharynx. There was a grade 2 view with large amount of dried mucous secretions in the posterior pharynx. 8.0 endotracheal tube was placed between the vocal cords. This was confirmed with auscultation, end-tidal CO2 change and chest x-ray is pending. There were no observed complications. No evidence of oxygen desaturation throughout the entire procedure. The patient was placed on mechanical ventilation without difficulty. PABLO
--- NOTE | 2020-07-20 12:54 | IPN ---
PROGRESS NOTE DATE: 07/19/2020 Ms. Romero is still quite somnolent. Nursing staff tells me that she seems to be waking up and arousing, although I do not see much change at the time of my examination from yesterday. She does not look to be in respiratory distress. Her vital signs show a maximum temperature of 97.8 with a heart rate that ranges between 96-127 in atrial fibrillation, respiratory rate of 16-20 without the use of accessory muscles, who is 91%-99% saturated on 1 liter nasal cannula and whose blood pressure is ranging between 106/55 to 140/65. Her intake and output over the past 24 hours has been recorded as 1000 in and 890 out, for a positivity of 110 mL. She has put out 840 mL from the chest tube, and there is no air leak. Her weight today is 92.5 kg compared to 95 kg yesterday. PHYSICAL EXAMINATION: It is difficult to sit her up; however, with nursing help I can hear breath sounds on either side. She has crackles on either side. Percussion note is full to the diaphragm. Cardiac exam shows an irregular rate and rhythm with a heart sound that is probably a murmur, heard best at the left lower sternal border, but could be a pericardial friction rub. I cannot feel her point of maximal impulse (PMI). S1 and S2 are normal. Abdomen is soft and nontender. Bowel sounds are hypoactive but positive. I cannot detect hepatomegaly through her obesity. Her legs show 3+ pretibial edema. There is n o calf tenderness that I can elicit. There is no differential swelling of the upper extremities. Her skin is warm, dry, and perfused without cyanosis or mottling, including that of the nailbeds and knees. Neck is supple. There is no jugular venous distention. No subcutaneous emphysema. Trachea is midline. Mouth shows the mucous membranes to be dry but pink. Lips and commissures without lesions. Eyes show her pupils to be equal and reactive. Extraocular motion intact. Sclerae anicteric. Neurologic shows her to be able to move all four extremities but non-purposefully. Her white count today is 11.9 with a hemoglobin and hematocrit of 8.8 and 28.5. Platelet count is 276 and stable, and differential shows 88% neutrophils, 3% lymphocytes, 6% monocytes. There are no immature forms or toxic granulations. Chemistries today show normal electrolytes with a BUN and creatinine of 38 and 4.04, glucose of 90, and calcium of 8.4. She is to be dialyzed today Her chest x-ray shows the lung fully expanded to the chest wall. She has a large cardiac silhouette. Right costophrenic angles are sharp. I cannot really tell about the left costophrenic angle, as the heart is covering it. It is not portably. She cannot go downstairs for a proper chest x-ray. Her pleural fluid has been returned with a pH greater than 7.8 with a glucose of 98 and an LDH of 66 with a corresponding serum LDH of 237. She has 217 white cells, 40% of which are mononuclear, and 55% are neutrophils. This looks like a transudative effusion and most probably chronic. I am a little concerned about the slight predominance of neutrophils in the pleural fluid. IMPRESSION: 1. Transudative pleural effusion. 2. Mental status changes of unknown cause at this time, being seen by neurology. 3. Atrial fibrillation. 4. End-stage renal disease, requiring hemodialysis. 5. Hypertension. 6. History of lacunar infarct. 7. Hypothyroidism. 8. History of gastric bypass in the remote past. 9. Gastroesophageal reflux disease. 10. Coronary artery disease. 11. Chest wall hematoma. PLAN AND DISCUSSION: As far as the chest tube is concerned, I will continue to keep it on suction, as she has put out too much for it to be removed. I think the fluid is secondary to her renal insufficiency and/or heart failure. Her echocardiogram shows her to have increased right ventricular systolic pressure of 46. She had borderline left ventricular hypertrophy but with preserved systolic function. She was found to have mild to moderate mitral insufficiency with severe tricuspid regurgitation. There is no satisfactory explanation for her somnolence at this point in time. Neurology is seeing her in consultation.
[2020-07-20 13:17] LABS: ABG BASE EXCESS -4.1 (-2.0-2.0); ABG HCO3 19.6 MEQ/L (22.0-26.0); ABG O2 SATURATION 98.9 % (95.0-99.0); ABG PARTIAL PRESSURE CO2 30.8 mmHg (35.0-45.0); ABG PARTIAL PRESSURE O2 186.2 mmHg (75.0-100.0); ABG STANDARD HCO3 21.1 MEQ/L (22.0-26.0); ABG TOTAL CO2 20.5 MEQ/L (23.0-31.0); ABG pH (ARTERIAL) 7.421 UNITS (7.350-7.450)
[2020-07-20 13:19] LABS: INR 2.41; PROTHROMBIN TIME 26.8 SECONDS (12.5-14.3)
[2020-07-20 13:20] LABS: PARTIAL THROMBOPLASTIN TIME 57.1 SECONDS (24.2-38.5)
--- NOTE | 2020-07-20 13:37 | IPN ---
NEPHROLOGY PROGRESS NOTE DATE: 07/20/2020 SUBJECTIVE: Mrs. Romero is seen this morning at her bedside. She remains unresponsive, however her eyes are open. She does have some spontaneous movements of her limbs but no purposeful movement. We dialyzed her yesterday and she tolerated dialysis reasonably well. She has an NG tube in place for medications, however she is not able to eat or drink. She remains on IV fluids. OBJECTIVE: PHYSICAL EXAMINATION: VITAL SIGNS: Temperature 99 degrees Fahrenheit, heart rate 103 per minute, respiratory rate 22 per minute, blood pressure 101/42 mm of mercury and oxygen saturation is 92% on one liter oxygen. HEENT: Her head is atraumatic. Oral mucosa is dry. She is breathing through her mouth. HEART: Tachycardic and irregular in rhythm. LUNGS: Diminished breath sounds at the bases and poor inspiratory effort. ABDOMEN: Mild tenderness and bowel sounds are normal. EXTREMITIES: Without any cyanosis or clubbing. NEUROLOGICAL: She remains poorly responsive. LABORATORY STUDIES: Today's labs show a white blood cell count of 22.5, hemoglobin 10.7 and hematocrit 33.7, platelet count 416. She had a blood gas done which showed a pH of 7.46, pcO2 27.8 and pO2 121.6. Bicarbonate is 21.5. Sodium 138, potassium 5.0, CO2 24, BUN 26 and creatinine 2.75. Total protein 5.6 and albumin 1.6. PROBLEMS: 1. End-stage renal disease - The patient was dialyzed yesterday and she tolerated dialysis well. I am surprised to see her potassium level go up to 5.0 while she was 4.1 yesterday and she was dialyzed. Increase in potassium level is unexpected. Her labs should be repeated again tomorrow and we will continue to dialyze her again tomorrow. 2. Altered mentation most likely toxic metabolic. Her leukocytosis is getting worse. We are going to get a CAT scan of abdomen and pelvis to rule out any possibility of intraabdominal infection. 3. Anemia her anemia has been stable and in fact improved. No urgent intervention is needed. 4. Pleural effusion she still has a chest tube in her right chest and most of her pleural effusion has been drained.
[2020-07-20] MEDS: PIPERACILLIN/TAZOBACTAM SOD 2.25 GM in D5W MINI-BAG PLUS 50 ML IV SCH ×2 (14:03→22:35)
[2020-07-20] MEDS: MIDAZOLAM INJ 2MG/2ML VIAL (J2250 PER 1MG) IV PRN ×2 (14:09→16:09)
[2020-07-20 14:12] LABS: VANCOMYCIN RANDOM 12.2 UG/ML
[2020-07-20] MEDS: VASOPRESSIN INJ 20 UNITS in NS 499 ML IV SCH ×2 (15:46→23:20)
[2020-07-20] MEDS ORDERED: VANCOMYCIN HCL 1,000 MG, VIAL MATE ADAPTER 1 EACH in NS 250 ML IV ONE (16:00)
[2020-07-20 16:16] LABS: CALCIUM LEVEL 7.8 MG/DL (8.8-10.2); CREATININE FOR GFR 3.06 MG/DL (0.55-1.30); GLOMERULAR FILTRATION RATE 15.7 (>39); POTASSIUM SERUM 5.4 MEQ/L (3.5-5.1)
[2020-07-20 16:27] LABS: APPEARANCE, CSF CLEAR (CLEAR); COLOR, CSF COLORLESS (COLORLESS); CSF TUBE# CELL CNT TUBE 1
[2020-07-20 16:29] LABS: CSF TUBE# GLU TUBE 2; GLUCOSE CSF 57 MG/DL (40-75)
[2020-07-20] MEDS ORDERED: ACETAMINOPHEN *IV* 1,000 MG in IV 1 EA IV ONE (17:00)
--- NOTE | 2020-07-20 17:36 | IPNPDOC ---
Date Seen The patient was seen on 07/20/20. Progress Note SUBJECTIVE: Prior to leaving on 07/19/20, discussed with neurology (Dr. 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 First dose given in evening 07/19/20. Early this AM, spoke with Dr. Reeves (o/p box coverer hand) who suggested maybe trying T3 BID due to low T3 levels, was ordered to start this AM. Upon shift beginning today at 7 AM, per night team, BP was low and difficult to get throughout evening/early AM. Used doppler overnight, systolics ranged from 50-110's from right upper ext (PICC and fistula in LUE). Not responding to verbal or tactile stimuli today, much changed from my evaluation yesterday. Remains tachycardic, afebrile this AM. Repeat CT neg for acute changes. CT abd/pelvis ordered by nephrology due to some wincing on exam: no acute infection suspected, ? ilieus but patient is having formed bowel movement this AM. Documented 7 BM's on 07/19/20 but c. diff not able to be sent due to being very formed this AM. H/H has been stable cycling Q12 H with ? GI bleed, stools are dark colored. ABG: pH 7.460, pCO2 27.8, pO2 121.6, pHCO3 19.3, pO2 98.4. Due to more sepsis picture, still with unidentified (? PNA) source of infection broad spectrum abx were started. I called patient's to update on decompensated status, he was very hard of hearing over the phone. I discussed that she was being transferred to ICU for closer monitoring and had multiple labs pending, that she was not responding to verbal or tactile stimuli. He stated he would be here in afternoon to visit with patient and understood plan prior to hanging up. Confirmed that she is still a full code on this phone call. Discussed case with Dr. Swartz, ICU/CC who was consulted. STAT lactic acid, CMP, troponin, ECG ordered, consult for anesthesia for lumbar puncture to be done was called in/placed. Patient transferred to ICU. Upon arrival to ICU, BP low with systolics in 60's, levophed started. There was immediate concern by Dr. Bassett (ICU/CC) about patient's ability to protect airway upon arrival to ICU. Decision was made to intubate. She received additional 500 cc bolus initially and after additional 1.5 L NS, in addition to levophed which helped BP. I called the again to update him on her being intubated to protect her airway and discussed the lumbar puncture. I explained that anesthesia would likely be calling him to get consent and that her condition had worsened. He again stated to understand and said he would be in to see her soon. Patient was later transferred to Critical Care Service as primary. OBJECTIVE: PHYSICAL EXAMINATION (on initial exam this AM, prior to intubation): VITAL SIGNS: please see below General: Not responsive to tactile, loud verbal stimuli. appears ashened in appearance HEENT: PERRLA, EOMI, sclerae clear. NG tube secured in place Neck: supple, normal ROM, no JVD Respiratory: Mild posterior lungs b/l crackles, not increased from 07/19/20. Chest tube in place on right . No air leak CVS: Irregularly irregular, mildly tachycardic, No m/r/G Abdo: obese, soft, no masses, no hepatosplenomegaly, BS+, no rebound tenderness Extremities: + pitting edema, pulses 2+ MSK: no joint deformities, ROM not tested Neuro: neuro exam unable to be performed, not following commands. No obvious focal deficits. LABORATORY DATA: Please see below MICROBIOLOGY: BCx x 2 sets: NG Pleural fluid anaerobic GS and cx: NG Pleural fluid aerobic GS and Cx: NG Pleural fluid fungal GS and Cx: pending UA unable to be collected as patient is anuric Resp panel: Neg MRSA: neg sputum cx ordered, unable to be provided IMAGING STUDIES: CT head (repeat from admission) 07/20/20: No acute findings. Age-related volume loss and white matter changes. CT abd/pelvis: 1. Chronic appearing changes as described above. 2. Bowel pattern suggests ileus and moderate fecal impaction at the rectosigmoid. 3. No obvious acute abdominopelvic pathology appreciated. No ascites. No free air. No adenopathy CXR 07/19/20: Nasogastric tube extends below the left hemidiaphragm. Right PICC line with tip in the SVC. Right chest tube in stable position. Mild linear right lower lobe fibroatelectatic changes and left lower lobe opacities again noted and similar to prior examination. A small residual right apical pneumothorax cannot definitively be excluded. Cardiac silhouette is stable. MRI brain 07/18/20: Mild cerebral volume loss and chronic white matter changes. No acute intracranial abnormality. CT chest (07/17/20): 1. Moderate-sized right pleural effusion increased from the prior study January 20, 2020. 2. Subpectoral chest wall hematoma on the right anterolaterally as above measuring 5.1 cm in greatest diameter. 3. Cardiomegaly. Small amount of left pleural fluid. Polycystic kidney disease. CT c-spine (07/17/20): Advanced degenerative spondylosis changes including erosive facet osteoarthritis at C1-2 bilaterally unchanged from the recent prior study. Fusion of the C5-6 disc and stable mild degenerative anterior subluxation of C4 on C5 again seen. No change from comparison study. Small amount of right pleural fluid is visible at the right lung apex.. CT head wo contrast (07/17/20): Old white matter infarct on the right beneath the insular cortex unchanged. Generalized volume loss and vascular calcification again noted. No acute intracranial abnormality. No skull fracture seen.. CXR (07/17/20): Cardiomegaly. Elevated right hemidiaphragm. Linear fibrosis left perihilar region and fissural thickening on the right unchanged.. Echocardiogram 07/18/20: EF 60% Underlying atrial fibrillation with slightly rapid ventricular response averaging 110 BPM. Right bundle branch block. M-mode and two-dimensional echocardiography was performed with pulse, continuouswave, color flow, and tissue Doppler studies. Borderline left ventricular hypertrophy with septal wall motion abnormality believed to be due to right ventricular pressure overload. Other left ventricular wall segments move normally with preserved global resting left ventricular systolic function. Mildly dilated left atrium. Could not comment on LV diastolic function in light of atrial fibrillation, but currently estimated mean left atrial pressure is upper limits of normal. Moderately dilated right ventricle with right ventricular free wall hypokinesis and Doppler evidence of at least moderate pulmonary hypertension. Prominently dilated right atrium with IVC size upper limits of normal with adequate respiratory collapse, suggestive of central venous pressure upper limits of normal. Normal aortic dimensions. Moderate aortic valvular sclerosis without stenosis and only very mild insufficiency. Moderate mitral annular calcification without inflow tract obstruction, but [id number] insufficiency. Normal appearing tricuspid valve with severe tricuspid regurgitation. No apparent intracardiac mass. Miniscule posterior pericardial effusion with at least a small left pleural effusion. ASSESSMENT: 79 yo F with a PMHx of ESRD on HD TTS, afib (on AC with xarelto), HTN, Hypothyroidism, GERD, neuropathy, pulmonary HTN, presented to ER with worsening shortness of breath and altered mental status. PLAN: Encephalopathy cannot r/o neurological vs. infection (? HCAP, ? c.diff, CSF infection? ). Cannot absolutely r/o autoimmune process contributing. 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 Discussed case with endocrinology- Suggested T3 BID to see if improvement but this was prior to more septic type picture. -Lumbar puncture done in ICU, results are pending. EEG was ordered 07/18/20 but not done. C. diff ordered but unable to be sent due to formed stool -Given boluses, started on levophed -Broadened abx this AM: Zosyn, vancomycin. -Pulmonary/critical care consulted and will take over as primary Hypotension/septic shock 2/2 to HCAP vs. ? c. diff vs. CSF infection -Developed overnight/early AM -Given fluid, on levophed -C/w treatment/w/u above Occult blood +, r/o GI bleed -H/H Q12H, improved since 07/19/20. Melena persists -CT abd/pelvis above -Occult positive on 07/19/20, same day epixiban, ASA and heparin sc stopped -PPI BID, CBC Q12H Atrial fibrillation with RVR -HR elevated at 103-105 -Stopped diltiazem this hospital stay due to CHF -Case discussed earlier with Dr. Nagy (cardiology), agrees. Recommended digoxin, placing NGT, bisoprolol 5 mg PO -Has been on bisoprolol 5 mg bid, digoxin 0.25 mg 3x week given ESRD Right side transudative pleural effusion s/p chest tube placement (07/17/20) -Likely 2/2 to chronic HFpEF -CXR above -Dr. Mendes (CT surgery) following -O/p of chest tube decreasing daily, still on suction -f/u recommendations Chronic HFpEF -BNP 16K, improved from 23K from 04/2020 -Pleural effusion, fluid retention, ESRD patient -Old echo from 04/2020: EF 50%, refer to prior practical nurse -New echo above -C/w HD, BB. Case discussed with Dr. Nagy. LLL opacity, inflammatory infiltrate/HCAP? vs. pulmonary vascular congestion 2/2 to CHF exacerbation - sepsis -Prior to intubation on 1 LNC saturating well, mild crackles b/l posterior lower lung raines, lower ext swelling -CXR/CT chest above- not identified on CT chest -Procalcitonin 0.8, BNP 16K, improved from 23K . -CXR above -Tx for ? PNA, sepsis above -Ordered sputum sample, unable to be provided -Not on lasix due to ESRD, c/w HD Hx of concussion / LOC/ "blacking out" -see problem #1 -Neurologically improving, no focal deficits -continue to hold depakote due to AMS per neuro, levels low -C/w plan above ESRD on HD (TTS) -Cr at baseline -Nephrology consulted, Dr. 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 GI bleed -On statin at home Carotid stenosis bilaterally -US carotid arterities 50-69% stenosis b/l -Vascular surgeon, Dr. Shea evaluted study, believes closer to 50% than 69% bilaterally. Can follow her up in 6 months as o/p with repeat duplex -Recent lipid panel unremarkable -On statin with hx of vasculopathy and prior CVA -Holding ASA with ? GI bleed GERD -PPI BID DVT px -Holding xarelto due to ? GI bleed. SCDs, teds were cutting into skin causing severe cuts DISPOSITION: Currently in ICU, rapid decompensation over this AM. Intubated and on pressor support. notified multiple times in the AM as mentioned above. Prognosis is guarded. Transferred primary care to Pulmonary /Critical care Dr. Swartz. TOTAL AMOUNT OF ICU TIME SPENT CARING FOR PATIENT (nonprocedural): 180 mins VS, I&O, 24H, Fishbone Vital Signs/I&O Vital Signs Date Time Temp Pulse Resp B/P (MAP) Pulse Ox O2 Delivery O2 Flow Rate FiO2 07/20/20 15:09 130 22 100 40 07/20/20 11:00 99.1 07/20/20 10:30 101/42 (61) Nasal Cannula 1.0 I&O- Last 24 Hours up to 6 AM 07/20/20 06:00 Intake Total 316 ml Output Total 2165 ml Balance -1849 ml Laboratory Data 24H LABS Laboratory Tests 2 07/19/20 17:33: Nucleated Red Blood Cells % (auto) 0.0 07/20/20 06:40: Nucleated Red Blood Cells % (auto) 0.4H, Anion Gap 8, Glomerular Filtration Rate 17.8L, Calcium Level 8.0L, Random Vancomycin Level 12.2 07/20/20 08:23: Total Bilirubin 0.9, Direct Bilirubin 0.5H, Aspartate Amino Transf (AST/SGOT) 33, Alanine Aminotransferase (ALT/SGPT) 16, Alkaline Phosphatase 297H, Total Protein 5.6L, Albumin 1.6L, Albumin/Globulin Ratio 0.4L 07/20/20 10:30: Blood Gas Bicarbonate Standard 21.5L, Arterial Blood pH 7.460H, Arterial Blood Partial Pressure CO2 27.8L, Arterial Blood Partial Pressure O2 121.6H, Arterial Blood Total CO2 20.2L, Arterial Blood HCO3 19.3L, Arterial Blood Base Excess - 3.5L, Arterial Blood Oxygen Saturation 98.4 07/20/20 11:05: Anion Gap 9, Glomerular Filtration Rate 16.4L, Lactic Acid Level 4.1*H, Calcium Level 7.7L, Total Bilirubin 1.0, Aspartate Amino Transf (AST/SGOT) 35, Alanine Aminotransferase (ALT/SGPT) 17, Alkaline Phosphatase 282H, Troponin I 0.04#, Total Protein 4.6L, Albumin 1.5L, Albumin/Globulin Ratio 0.5L 07/20/20 12:28: Bedside Glucose (Misc Panel) 74L 07/20/20 12:45: Prothrombin Time 26.8H, Prothromb Time International Ratio 2.41, Activated Partial Thromboplast Time 57.1H, Central Line Venous O2 Saturation 98.2 07/20/20 13:08: Blood Gas Bicarbonate Standard 21.1L, Arterial Blood pH 7.421, Arterial Blood Partial Pressure CO2 30.8L, Arterial Blood Partial Pressure O2 186.2H, Arterial Blood Total CO2 20.5L, Arterial Blood HCO3 19.6L, Arterial Blood Base Excess - 4.1L, Arterial Blood Oxygen Saturation 98.9 07/20/20 15:26: 07/20/20 15:38: Anion Gap 11, Glomerular Filtration Rate 15.7L, Lactic Acid Followup at 4 Hours 3.5*H, Calcium Level 7.8L CBC/BMP Laboratory Tests 07/19/20 17:33 07/20/20 06:40 07/20/20 11:05 07/20/20 15:38 Microbiology Microbiology 07/20/20 Gram Stain, Received Pending 07/20/20 CSF Culture, Received Pending 07/20/20 , Received Pending 07/20/20 Blood Culture, Received Pending 07/20/20 Blood Culture, Received Pending 07/19/20 Stool Occult Blood ([facility]) - Final, Complete 07/17/20 Acid Fast Stain, Received Pending 07/17/20 Mycobacterial Culture, Received Pending 07/17/20 Fungal Smear, Received Pending 07/17/20 Fungal Culture, Received Pending 07/17/20 Gram Stain - Final, Complete 07/17/20 Anaerobic Culture - Final, Complete 07/17/20 Body Fluid Culture - Final, Complete 07/17/20 Respiratory Virus Panel (PCR) ([facility]) - Final, Complete 07/17/20 Blood Culture - Preliminary, Resulted No Growth after 72 hours. All specime... 07/17/20 Blood Culture - Preliminary, Resulted No Growth after 72 hours. All specime... Vickie Hernandez MD Jul 20, 2020 17:36
--- NOTE | 2020-07-20 18:39 | RO ---
OPERATIVE NOTE DATE OF OPERATION: 07/20/2020 PREOPERATIVE DIAGNOSIS: Septic shock. POSTOPERATIVE DIAGNOSIS: Septic shock. PROCEDURE: Central line insertion. INDICATION: Venous access, shock. SURGEON: Marleni Swartz MD CONSENT: Consent was obtained from the patient's prior to the procedure. Indication, risks and benefits were explained at length. DESCRIPTION OF PROCEDURE: A central line insertion practices form was completed by an independent observer. A time-out was performed prior to the procedure. Full sterile technique was maintained throughout the procedure including surgical cap, mask, protective eyewear, full gown, and sterile gloves. The patient was placed supine. The left femoral region was prepped using chlorhexidine scrub and draped in sterile fashion using a full drape and sterile probe cover employed. The left femoral vein was identified using ultrasound. Anesthesia was achieved over the vein using 1% Lidocaine. Using real-time [id number] guidance, the introducer needle was inserted into the femoral vein under direct ultrasound visualization. Venous blood was withdrawn. The syringe was removed and a guidewire was advanced into the introducer needle. The introducer needle was removed over the guidewire. A small incision was made at the skin surface with a scalpel and a dilator was exchanged over the guidewire. After appropriate dilation was obtained, the dilator was exchanged over the wire for a triple-lumen central venous catheter. The wire was removed and the catheter was sutured in place. A sterile chlorhexidine-impregnated dressing was placed over the catheter at the insertion site. The patient tolerated the procedure without any hemodynamic compromise. At the time of procedure completion all ports aspirated and flushed properly. Estimated blood loss is less than 3 mL. MTDD
[2020-07-20 18:50] LABS: CSF TUBE# TP TUBE 1; TOTAL PROTEIN,CSF 46 MG/DL (15-45)
--- NOTE | 2020-07-20 18:53 | RO ---
OPERATIVE NOTE DATE OF OPERATION: 07/20/2020 PREOPERATIVE DIAGNOSIS: Septic shock. POSTOPERATIVE DIAGNOSIS: Septic shock. PROCEDURE: Arterial line insertion. INDICATION: Blood pressure monitoring. SURGEON: Marleni Swartz MD CONSENT: Consent was obtained from the patient's prior to the procedure. Indication, risks and benefits were explained at length. DESCRIPTION OF PROCEDURE: A procedure form was completed by independent observer. A time-out was performed prior to the procedure. Full sterile technique was maintained throughout the procedure including surgical cap, mask, protective eyewear, full gown, and sterile gloves. The patient was placed supine. The right femoral region was prepped using chlorhexidine scrub and draped in sterile fashion using a fenestrated drape and a sterile probe cover was employed. The right femoral artery was identified using ultrasound. Anesthesia was achieved over the vein using 1% Lidocaine. Using real time [id number] guidance, the introducer needle was inserted into the right femoral artery under direct ultrasound visualization. Arterial blood was noted to be withdrawn. The syringe was removed and there was pulsatile blood flow noted. A guidewire was advanced into the introducer needle. The introducer needle was removed over the guidewire. A femoral arterial line was exchanged over the guidewire. The guidewire was removed and the catheter was sutured in place. A sterile impregnated dressing was placed over the catheter in the insertion site. The patient tolerated the procedure without any hemodynamic compromise. At the time of procedure completion, the catheter was connected to the monitoring specialist and calibrated. Appropriate waveform and blood pressure tracing was observed. Estimated blood loss was less than 3 mL. MTDD
--- NOTE | 2020-07-20 20:43 | ECGEPIP ---
[facility] Test Date: 2020-07-20 Pat Name: DARCY FRENCH Department: Room: [place] [address] Gender: Female [employer]: SAAD : 1940 Requested By: Vickie Hassan Order Number: [id number] Reading MD: Debora Juarez Measurements Intervals [place] Rate: 122 P: PA: QRS: -36 QRSD: 144 T: 81 QT: 308 QTc: 438 Interpretive Statements Atrial fibrillation with rapid ventricular response Left axis deviation Right bundle branch block Inferior infarct , age undetermined, CANNOT R/O Anterolateral infarct , age undetermined, CANNOR R/O COMPARED TO 07/18/20 Q WAVES V4-V6 ARE NEW Electronically Signed on 07-20-2020 20:43:12 EDT by Debora Juarez
[2020-07-20 20:47] LABS: CSF TUBE# LDH TUBE 1; LDH CSF 40 U/L
--- NOTE | 2020-07-20 20:47 | ECGEPIP ---
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
[2020-07-20] MEDS ORDERED: **VANCO AFTER HD** MISC XX SCH (21:00)
[2020-07-20 21:16] LABS: HEMATOCRIT 34.3 % (36.0-47.0); HEMOGLOBIN 10.8 g/dl (12.0-15.5); MEAN CORPUSCULAR HEMOGLOBIN 32.4 pg (27.0-33.0); MEAN CORPUSCULAR HGB CONC 31.5 g/dl (32.0-36.5); PLATELET COUNT, AUTOMATED 472 10^3/uL (150-450); RED BLOOD COUNT 3.33 10^6/uL (4.00-5.40); WHITE BLOOD COUNT 25.1 10^3/uL (4.0-10.0)
[2020-07-20] MEDS ORDERED: IBUPROFEN 100 MG/5 ML SUSP UDC DYE FREE PO PRN (22:05)
[2020-07-20] MEDS: metroNIDAZOLE 500 MG in IV 1 EA IV SCH (22:34)
[2020-07-20] MEDS: HYDROCORTISONE 100 MG/2 ML VIAL (J1720 PER 1) IV SCH (22:37)
--- NOTE | 2020-07-20 22:42 | CR ---
CRITICAL CARE CONSULTATION DATE: 07/20/2020 CHIEF COMPLAINT: Encephalopathy. HISTORY OF PRESENT ILLNESS: The history was obtained from the chart and from other caudal information as the patient was obtunded and then subsequently intubated and on mechanical ventilation and unable to provide a history. Miss Romero is a 79-year-old female with a past medical history of end-stage renal disease on hemodialysis Saturday, , Saturday, atrial fibrillation, on anticoagulation, pulmonary hypertension, hypothyroidism, gastroesophageal reflux disease, neuropathy, history of headaches, and questionable neurologic deficits who had initially presented with worsening shortness of breath and altered mental status on 07/17/20. The patient had fallen several days prior to her presentation after completing a session of dialysis, when getting out of the shower, and had landed on her right back where she developed an area of ecchymosis. Prior to this episode she had been noticed to have episodes of confusion at times as well as a decline in her mobility. She was being evaluated by Neurology for history of migraines and previous gait disturbances. She has had MRI's done in the past as an outpatient for evaluation which have shown microvascular changes. In the E.D. the patient was noted to be hypoxic and was found to have a right sided pleural effusion with concern initially for a hemothorax as she was on anticoagulation. She had a chest tube placed by Cardiothoracic Surgery which drained straw colored fluid with no evidence of a hemothorax. Fluid studies at that time appeared more transudative and was thought to be in the setting of her end-stage renal failure as well as the possibility for congestive heart failure. The patient did have an echocardiogram done during this admission which had shown normal EF with evidence of right ventricular failure with a moderate dilated right ventricle and RV of free wall hypokinesis with at least moderate pulmonary hypertension and some degree of right ventricular pressure overload with a prominently dilated right atrium and IVC with upper limits seroma suggestive of elevated central venous pressure. There was also evidence of mild to moderate mitral valve insufficiency. With placement of the chest tubes, she had resolution of her pleura effusion. The patient was also continued with dialysis as per Nephrology and was able to tolerate fluid removal and her usual hemodialysis sessions. Her hospital stay did also have some episodes of atrial fibrillation with rapid ventricular response but had been given Digoxin as well as Bisoprolol for weight control. The patient also during her admission has been continuing to have episodes of a waxing and waning mental status with significant lethargy at times. She would occasionally say her name or a few sentences but other times could be fairly obtunded. Initially the patient had been given broad spectrum antibiotics with Vancomycin and Cefepime, however she was then deescalated to Ceftriaxone as there was unclear infectious etiology initially. The patient was also noted to have some worsening control of her hypothyroidism, despite being on her usual thyroid medication with Synthroid. She did have positive thyroid peroxidase antibodies and there was concern for Pamela's encephalopathy contributing to her altered mental status. Neurology had recommended high dose Solu-Medrol one gram IV x3 days and she received her first dose yesterday evening. Endocrine was also consulted and had recommended the addition of T-3 and continuing with her Synthroid. This morning the patient was noted to be more obtunded than previous. She was also noted to have sonorous breath sounds and her blood pressure had also been decreasing. Critical Care was consulted and Dr. Bassett had seen her immediately due to concerns with airway protection. Given her mental status, the patient was then intubated by Dr. Bassett using Etomidate and Rocuronium for rapid sequence intubation with a GlideScope. The patient was also noted to have worsening episodes of hypotension and was started on Levophed for blood pressure support in addition to Vasopressin. Anesthesia was also consulted for lumbar puncture, given her continued encephalopathy. The attempts by Anesthesia were unsuccessful and so I attempted a lumbar puncture which was successful and she did have clear CSF with a normal opening pressure and specimens were sent for studies. In the ICU the patient was having variable blood pressure with a cuff that was on her forearm. She therefore had a femoral arterial line placed which did show good wave form and a blood pressure that was better than seen with the cuff pressure. She was able to be titrated down on her Levophed and Vasopressin but was still requiring Levophed to maintain a MAP above 65. She did also receive a fluid bolus of approximately 1.5 liters normal saline previously with questionable fluid response. The patient did also have a femoral triple lumen placed for additional access as her only access was a dual lumen PICC line initially. The patient was also noted in the ICU to be febrile with temperature up to 103.1 rectally. She was given IV Tylenol one gram. PAST MEDICAL HISTORY: The patient's past medical history is significant for: 1. Atrial fibrillation, on anticoagulation. 2. Hypertension. 3. End-stage renal disease, on hemodialysis Saturday, , Saturday. 4. Hypothyroidism. 5. Mood disorder. 6. Neuropathy. 7. Gastroesophageal reflux disease. 8. History of lacunar infarct [address] head[address] 9. Pulmonary hypertension. PAST SURGICAL HISTORY: The patient's past surgical history is significant for: 1. Status post gastric bypass surgery in 1977. 2. Bilateral kidney stone removal. 3. Bilateral breast benign nodules. 4. Hysterectomy. 5. Cholecystectomy. 6. Appendectomy. FAMILY HISTORY: Mother with diabetes. Father with a history of kidney problems. SOCIAL HISTORY: Social alcohol use but denies any nicotine dependence or other drug use. At baseline the patient was using a cane and a walker. HOME MEDICATIONS: 1. Amitriptyline. 2. Apixaban. 3. Aspirin. 4. Atorvastatin. 5. Vitamin D-3. 6. Diltiazem. 7. Divalproex. 8. [place]. 9. Folic Acid. 10. Furosemide. 11. Gabapentin. 12. Synthroid. 13. Melatonin. 14. Co-Q 10. 15. Zinc. 16. Flonase p.r.n. 17. Omeprazole p.r.n. ALLERGIES: 1. Berries. 2. Fish. 3. Tape. 4. Contrast media. 5. Fruit. 6. Iodine. 7. Codeine. PHYSICAL EXAMINATION: VITAL SIGNS: Temperature 101.6, pulse 133, respirations 16, blood pressure 133/81, O2 sat 99% on the ventilator at 40% FiO2. INTAKE AND OUTPUT: In's 1.9 liters. Out's 110 mL. GENERAL APPEARANCE: The patient is intubated and is not on any continuous sedation. She did receive p.r.n. Versed but only one dose prior to lumbar puncture. She is occasionally opening eyes but is not responding to voice or tactile stimuli and not following commands. There are occasional, almost posturing movements in the upper extremities. HEENT: Normocephalic and atraumatic. Pupils are reactive to light bilaterally. There is pale conjunctivae noted. Moist mucous membranes noted. NECK: Supple. Trachea is midline. There is no palpable cervical adenopathy. CARDIOVASCULAR: Tachycardic, irregularly irregular, normal S1, S2. Unable to clearly auscultate any murmurs. PULMONARY: There are coarse ventilator breath sounds bilaterally with few crackles at the bases. No wheezing or rhonchi noted. ABDOMEN: Obese, soft, nontender, nondistended. EXTREMITIES: There is ecchymosis noted on the right side from the previous fall. There is no significant lower extremity edema noted bilaterally. LABORATORY DATA: WBC 22.5, hemoglobin 10.7, platelets are 416. Chemistries - sodium was 138, potassium was 5.7, chloride was 106, bicarbonate is 23, BUN 29, creatinine is 2.96, glucose was 83, calcium 7.7, T-bili 1.0, AST ALT 35 and 17, alkaline phosphatase is 282. Albumin is 1.5. Troponin 0.04. Lactic acid was 4.1. ABG prior to intubation - pH was 7.460, pco2 of 27.8, pO2 of 121.6. Post intubation ABG - pH 7.421, pco2 of 30.8, pO2 of 186.2. IMAGING DATA: Head CT this morning showed age related volume loss and white matter changes but no acute intracranial findings. The CT of the abdomen and pelvis in the lung bases showed a right sided chest tube with a small pneumothorax with small pleural fluid. There was also bibasilar atelectasis noted. The liver showed a stable hypodensity in the posterior segment of the right lobe, likely representing a cyst with possible similar hypodense lesion in the lateral segment of the left lobe. There is status post cholecystectomy with compensatory intrahepatic and extrahepatic biliary ductal dilation noted. There is diffuse bilateral polycystic kidney disease with a few non-obstructing infrarenal calculi. No evidence of acute perinephric stranding or hydroureter nephrosis. The patient is gastric bypass surgery with an NG tube in the residual portion of the stomach. There is moderate fecal stasis and air filled distended loops of bowel, suggesting an underlying ileus. There is a fecal impaction at the rectosigmoid with some distention but no free air to suggest perforation. ASSESSMENT AND PLAN: Mrs. Romero is a 79-year-old female with a past medical history of end-stage renal disease, atrial fibrillation, pulmonary hypertension, hypothyroidism, neuropathy and gastroesophageal reflux disease, who presented initially with encephalopathy and shortness of breath. The patient has had a complicated hospital stay with continued issues with her mental status and with encephalopathy which has been somewhat unclear source. There was concern initially for infection or sepsis related encephalopathy and she had been on broad spectrum antibiotics which were recently deescalated to Ceftriaxone. She also had evidence of worsening hypothyroidism, and there was concern for Pamela's encephalopathy, and so she had been given high dose Solu-Medrol which was given yesterday. Today she had worsening obtundation and there was concern for airway protection. The patient was also hypotensive, in shock and required vasopressor administration. She was subsequently intubated and placed on mechanical ventilation and transferred to the ICU for further management. 1. Neuro - The patient presented with encephalopathy and had a previous history of gait disturbances as well as questionable episodes of "blacking out". She was being seen by Neurology as an outpatient and had a previous evaluation including an MRI and has had multiple brain imaging during this admission which showed no acute intracranial pathology. The patient was thought to have a possibility of Pamela's encephalitis given her elevated thyroid peroxidase antibody and some slight worsening in her thyroid function, although on her brain MRI, had not shown any significant abnormalities. She was given Solu-Medrol one gram yesterday and so far had not had any improvement in her mental status. - The patient currently appears to have sepsis with fever and increased leukocytosis although some of that may be reactionary to the steroids. With her hypotension there is also a concern for septic shock which may also be contributing to her ongoing encephalopathy currently. - Given the possibility for infection and with her neurologic complaints, a lumbar puncture was attempted by Anesthesia which was unsuccessful. I was able to get a lumbar puncture done successfully with clear CSF fluid and with the initial fluid studies not consistent with an infectious etiology. The protein and the polyclonal bands are still pending. f/u results of CSF - We will continue with steroids, given her shock however will change her to Hydrocortisone as the stress dose is currently. - The patient is on Versed p.r.n. only as even with intubation, she is still minimally responsive. She does have some almost posturing movements at times. We will continue to monitor closely for any possible seizures and we will give Versed if needed for seizure activity. 2. Cardiac - patient with history of atrial fibrillation, previously on anticoagulation. She also has a history of pulmonary hypertension noted on this admission. Echocardiogram with some evidence of right ventricular dysfunction. The patient was on anticoagulation, however given the chance of possible GI bleed, anticoagulation and Aspirin were on hold. - Patient with shock, likely secondary to sepsis with a questionable source currently. - The patient is on Levophed currently for blood pressure support to maintain a MAP above 65 but was on Vasopressin initially as well. We will continue Levophed and add Vasopressin if needed to maintain a MAP above 65. - The patient did have lactic acidosis which has trended down slightly. We will continue to monitor and trend. - The patient does appear to have evidence of atrial fibrillation and is tachycardic although this is also in the setting of a high fever. If she has continued episodes of rapid ventricular response, then she may need additional medication for rate control and given her shock and hypotension and already being on Digoxin, would consider Amiodarone. - The patient did have troponins initially which were negative. She is at risk with her history however for demand ischemia, so would need to monitor closely, particularly if there is any change in tele or on EKG. Her EKG today did not show any change from her chronic. 3. Pulmonary - The patient is currently intubated and on mechanical ventilation, given her obtundation and concern for airway protection. She did initially have a right pleural effusion with a chest tube which is still in place with evidence of a small residual pneumothorax, although no significant air leak noted on chest tube. Her initial fluid studies were transudative and the effusion was thought to be secondary to fluid overload from her end-stage renal disease or from congestive heart failure. - The patient's chest x-ray does not show any worsening opacities or infiltrates. She does have atelectasis on the CT of the abdomen and pelvis lung views. - We will continue the patient on mechanical ventilation. She is on vent settings currently with PRVC with 440/20/40 and 5. - We will continue with daily ABGs and chest x-rays while intubated and continue with vent bundle care with Chlorhexidine mouthwash and head of bed elevation. 4. I.D. - The patient with evidence of sepsis and leukocytosis, fever and also likely septic shock given her hypotension and vasopressor requirements. The exact source of her infectious etiology is somewhat unclear. There was consideration initially for possible pneumonia given her altered mental status and the possibility of aspiration although not clearly seen on her imaging. There was the possibility on chest x-ray today of some left lower lobe opacity or atelectasis. Given her altered mental status, there was also consideration for MEDICAL RECORD CODER infection although her lumbar puncture which was able to be performed today did not show any significant findings suggestive for infectious etiology. The patient also has been having more bowel movements with loose stool had seven bowel movements yesterday, although they do appear to be melanotic stool. Her abdomen and pelvis CT did not show evidence of colitis, but there was evidence of ileus and some fecal impaction and distention. The CT was also done without contrast which is somewhat limiting. There is a possibility as she was on broad spectrum antibiotics for a possible C-diff and so we will attempt to re-send the sample. We will add Flagyl as well for now and continue with the broad spectrum antibiotics which were further broadened today to Vancomycin and Zosyn. - We will follow up the results of the blood cultures which were repeated today. 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 5. Renal/Endo - patient with a history of end-stage renal disease, on hemodialysis. She has been getting her usual dialysis sessions on Saturday, and Saturday and would be due for another dialysis session tomorrow. Today she did have evidence of hyperkalemia which we will continue to monitor and trend. Appreciate Nephrology recommendations. Would need to see if she is able to tolerate regular hemodialysis through her fistula tomorrow or may need potential placement of a hemodialysis catheter. - Patient has a history of hypothyroidism with likely Pamela's given her thyroid peroxidase antibodies being positive. She was given IV steroids for a possibility of Pamela's encephalitis and she was also added on T-3 in addition to her Synthroid. We will continue for now with stress dose Hydrocortisone. - The patient was on various medications including Depakote as well as Gabapentin which could have caused some altered mental status with drug induced encephalopathy. These medications are now on hold. 6. GI - patient with episodes of melena with stool occult blood, likely with a GI bleed. She was on Aspirin as well as anticoagulation previously, which is on hold. - We will continue with PPI twice daily and with monitoring of her H&H. We will get a type and screen. - We will continue with TEDS and SCDs for DVT prophylaxis. CODE STATUS - patient is currently a full code. Her as well as a son and daughter have been updated as to her critical condition and her prognosis. There has been some discussion about a possibility for a DNR, although the family is going to continue to discuss her goals of care further. Total critical care time spent not including any procedures approximately one hour and 50 minutes. PABLO
[2020-07-21] VITALS (10 sets, daily range): BP systolic 102–131; BP diastolic 49–62
[2020-07-21] MEDS: LIOTHYRONINE 25 MCG TAB PO SCH ×2 (01:20→10:04)
[2020-07-21] MEDS: VASOPRESSIN INJ 20 UNITS in NS 499 ML IV SCH ×2 (01:21→10:01)
[2020-07-21 02:30] LABS: CLOSTRIDIUM DIFFICILE PCR NEGATIVE (NEGATIVE)
[2020-07-21] MEDS ORDERED: POLYVINYL ALCOHOL OPHTH SOLN 15 ML(LIQUITEARS) OU PRN (02:50)
[2020-07-21] MEDS: HYDROCORTISONE 100 MG/2 ML VIAL (J1720 PER 1) IV SCH ×2 (03:27→10:01)
[2020-07-21] MEDS: metroNIDAZOLE 500 MG in IV 1 EA IV SCH ×2 (03:57→12:07)
[2020-07-21 04:15] LABS: HEMATOCRIT 31.3 % (36.0-47.0); MEAN CORPUSCULAR HEMOGLOBIN 32.5 pg (27.0-33.0); MEAN CORPUSCULAR HGB CONC 31.9 g/dl (32.0-36.5); MEAN CORPUSCULAR VOLUME 101.6 fl (80.0-96.0); PLATELET COUNT, AUTOMATED 384 10^3/uL (150-450); RED BLOOD COUNT 3.08 10^6/uL (4.00-5.40); WHITE BLOOD COUNT 23.6 10^3/uL (4.0-10.0)
[2020-07-21 04:42] LABS: CREATININE FOR GFR 3.21 MG/DL (0.55-1.30); GLOMERULAR FILTRATION RATE 14.9 (>39); POTASSIUM SERUM 5.5 MEQ/L (3.5-5.1)
[2020-07-21 05:58] LABS: ABG HCO3 14.3 MEQ/L (22.0-26.0); ABG O2 SATURATION 98.7 % (95.0-99.0); ABG PARTIAL PRESSURE CO2 23.4 mmHg (35.0-45.0); ABG PARTIAL PRESSURE O2 147.5 mmHg (75.0-100.0); ABG STANDARD HCO3 17.2 MEQ/L (22.0-26.0); ABG pH (ARTERIAL) 7.403 UNITS (7.350-7.450)
[2020-07-21] MEDS: PIPERACILLIN/TAZOBACTAM SOD 2.25 GM in D5W MINI-BAG PLUS 50 ML IV SCH (05:58)
[2020-07-21] MEDS: LEVOTHYROXINE 75MCG TABLET (0.075MG) PO SCH (05:59)
[2020-07-21] MEDS: LEVOTHYROXINE 100MCG TABLET (0.1MG) PO SCH (05:59)
[2020-07-21] MEDS: SLF 3 ML SYR IV SCH (06:00)
[2020-07-21] MEDS: SODIUM CHLORIDE 0.9% INJ 10 ML SYR IV SCH (06:00)
--- NOTE | 2020-07-21 08:14 | REP ---
INDICATION: RESPIRATORY FAILURE COMPARISON: 07/20/2020 TECHNIQUE: Portable AP view of the chest FINDINGS: Endotracheal tube 4 cm above the porfirio. Nasogastric tube courses below left hemidiaphragm in stable position. Right PICC line with tip in the SVC. Right chest tube in stable position. Mediastinum, cardiac silhouette, and lung raines are essentially stable. Subtle basilar opacities suggesting atelectasis and possible small right pleural fluid cannot be excluded. Very small residual right apical pneumothorax again suspected. IMPRESSION: No significant change from prior examination. As above. <Electronically signed by Carmine Johnson > 07/21/20 0850
[2020-07-21] MEDS: DOCUSATE SODIUM 100MG CAPSULE PO SCH (09:00)
[2020-07-21] MEDS: PANTOPRAZOLE 40MG VIAL (C9113 PER 1) IV SCH (10:01)
[2020-07-21] MEDS: CHLORHEXIDINE GLUCONATE 0.12 % 15ML UDC (PERIDEX ORAL RINSE) MT SCH (10:04)
--- NOTE | 2020-07-21 10:17 | CR ---
CONSULTATION DATE: 07/20/2020 CHIEF COMPLAINT: Encephalopathy. HISTORY OF PRESENT ILLNESS: History was obtained from the chart and from other collateral information as the patient was obtunded, and then subsequently intubated and on mechanical ventilation and unable to provide a history. Ms. Romero is a 79-year-old female with a past medical history of ESRD on hemodialysis Saturday, , and Saturday; atrial fibrillation on anticoagulation, pulmonary hypertension, hypothyroidism, GERD, neuropathy, history of headaches, and questionable neurologic deficits who had initially presented with worsening shortness of breath and altered mental status on 07/17/2020. The patient had fallen several days prior to her presentation after completing a session of dialysis when getting out of the shower and had landed on her right back where she developed an area of ecchymosis. Prior to this episode, she had been noted to have episodes of confusion at times, as well as a decline in her mobility. She was being evaluated by neurology for a history of migraines and previous gait disturbances. She has had MRIs done in the past as an outpatient for evaluation, which had shown microvascular changes. In the ED, the patient was noted to be hypoxic and was found to have a right-sided pleural effusion with concern initially for hemothorax, as she was on anticoagulation. She had a chest tube placed by cardiothoracic surgery, which drained straw colored fluid with no evidence of hemothorax. Fluid studies at that time appeared more transudative and was thought to be in the setting of her end-stage renal failure, as well as the possibility for CHF. The patient did have an echocardiogram done during this admission, which had shown normal EF with evidence of right ventricular failure with a moderately dilated right ventricle and RV free wall hypokinesis with at least moderate pulmonary hypertension and some degree of right ventricular pressure overload with a prominently dilated right atrium and IVC upper limits of normal suggestive of elevated central venous pressure. There was also evidence of [id number] mitral valve insufficiency. With placement of the chest tube, she had occlusion of her effusion. The patient was also continued with dialysis as per nephrology and was able to tolerate fluid removal in her usual hemodialysis sessions. She did also have some episodes of atrial fibrillation with RVR, but had been given digoxin, as well as bisoprolol for rate control. The patient also during her admission has been continuing to have episodes of a waxing and waning mental status with significant lethargy at times. She would occasionally say her name or a few sentences, but other times could be fairly obtunded. Initially, the patient had been given broad-spectrum antibiotic with vancomycin and Cefepime; however, she was then de-escalation to ceftriaxone as there was unclear infectious etiology initially. The patient was also noted to have some worsening control of her hypothyroidism despite being on her usual thyroid medication with Synthroid. 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 Neurology had recommended high dose Solu-Medrol 1 gram IV x3 days and she received her first dose yesterday evening. Endocrine was also consulted and had recommended the addition of T3 and continuing with her Synthroid. This morning, the patient was noted to be more obtunded than previous. She was also noted to have sonorous breath sounds and her blood pressure had also been decreasing. Critical care was consulted and Dr. Bassett had seen her immediately due to concerns with airway protection. Given her mental status, the patient was then intubated by Dr. Bassett using etomidate and rocuronium for rapid sequence intubation with a GlideScope. The patient was also noted to have worsening episodes of hypotension and was started on Levophed for blood pressure support in addition to vasopressin. Anesthesia was also consulted for lumbar puncture given her continued encephalopathy. The attempts at anesthesia were unsuccessful and so I attempted a lumbar puncture, which was successful and she did have clear CSF with a normal opening pressure and specimens were sent for studies. In the ICU, the patient was having very variable blood pressure with a cuff that was on her forearm. She therefore had a femoral arterial line placed, which did show good waveform and a blood pressure that was better than seen with the cuff pressure. She was able to be titrated down on her Levophed and vasopressin, but was still requiring Levophed to maintain a MAP above 65. She did also receive fluid bolus of approximately 1.5 liters normal saline previously with questionable fluid response. The patient did also have a femoral triple lumen placed for additional access as the only access was a dual-lumen PICC line initially. The patient was also noted in the ICU to be febrile with temperature up to 103.1 rectally. She was given IV Tylenol 1 gram. PAST MEDICAL AND SURGCIAL HISTORY: 1. Atrial fibrillation on anticoagulation. 2. Hypertension. 3. ESRD on hemodialysis Saturday, , and Saturday. 4. Hypothyroidism. 5. Mood disorder. 6. Neuropathy. 7. GERD. 8. History of lacunar infarct flaccidity on CT head. 9. Pulmonary hypertension. 10. Status post gastric bypass surgery in 1977. 11. Bilateral kidney stone removal. 12. Bilateral breast benign nodules. 13. Hysterectomy. 14. Cholecystectomy. 15. Appendectomy. FAMILY HISTORY: Mother with diabetes. Father with history of kidney problems. SOCIAL HISTORY: Social alcohol use, but denies any nicotine dependence or other drug use. At baseline, the patient was using a cane and a walker. HOME MEDICATIONS: 1. Amitriptyline. 2. Apixaban. 3. Aspirin. 4. Atorvastatin. 5. Vitamin D3. 6. Diltiazem. 7. Divalproex. 8. [place]. 9. Folic acid. 10. Furosemide. 11. Gabapentin. 12. Synthroid. 13. Melatonin. 14. Co-Q10. 15. Zinc. 16. Flonase p.r.n. 17. Omeprazole p.r.n. ALLERGIES: BERRIES, FISH, TAPE, CONTRAST MEDIA, FRUIT, IODINE, AND CODEINE. PHYSICAL EXAMINATION: VITAL SIGNS: Temperature 101.6, pulse 133, respirations 16, blood pressure 133/81, O2 saturation 99% on the ventilator at 40% FiO2. INTAKE AND OUTPUT: In 1.9 liters, out 110 mL. GENERAL: The patient is intubated and is not on any continuous sedation. She did receive p.r.n. Versed, but only one dose prior to lumbar puncture. She is occasionally opening eyes, but is not responding to voice or tactile stimuli and not following commands. There are occasional almost posturing movements in the upper extremities. HEENT: Normocephalic, atraumatic. Pupils are reactive to light bilaterally. There is pale conjunctivae noted. Moist mucous membranes noted. NECK: Supple. Trachea is midline. There is no palpable cervical adenopathy. CARDIOVASCULAR: Tachycardic, irregularly irregular. Normal S1, S2. Unable to clearly auscultate any murmurs. PULMONARY: There are coarse ventilator breath sounds bilaterally with a few crackles at the bases. No wheezing or rhonchi noted. ABDOMEN: Obese, soft, nontender, and nondistended. EXTREMITIES: There is ecchymosis noted on the right side from her previous fall. There is no significant lower extremity edema noted bilaterally. LABORATORY DATA: WBC 22.5, hemoglobin 10.7, platelets 416,000. Chemistries with sodium 148, potassium 5.7, chloride 106, bicarb 23, BUN 29, creatinine 2.96, glucose 83. Calcium 7.7, total bilirubin 1.0, AST and ALT 35 and 17, alkaline phosphatase 282, albumin 1.5. Troponin 0.04. Lactic acid was 4.1. ABG prior to intubation pH of 7.460, pCO2 of 27.8, pO2 of 121.6. Post-intubation ABG pH 7.421, pCO2 of 30.8, pO2 of 186.2. IMAGING DATA: Head CT this morning showed age-related volume loss and white matter changes, but no acute intracranial findings. CT of the abdomen and pelvis in the lung bases showed a right-sided chest tube with a small pneumothorax with small pleural fluid. There was also bibasilar atelectasis noted. The liver showed stable hypodensity in the posterior segment of the right lobe likely representing a cyst with possible similar hypodense lesion in the lateral segment of the left lobe. Status post cholecystectomy with compensatory intrahepatic and extrahepatic biliary ductal dilation noted. There is diffuse bilateral polycystic kidney disease with a few nonobstructing infrarenal calculi and no evidence of acute perinephric stranding or hydroureteronephrosis. The patient is status post gastric bypass surgery with NG tube in the residual portion of the stomach. There is moderate fecal stasis and air-filled distended loops of bowel suggesting an underlying ileus. There is fecal impaction at the rectosigmoid with some distention, but no free air to suggest perforation. ASSESSMENT AND PLAN: Mrs. Romero is a 79-year-old female with a past medical history of end-stage renal disease (ESRD), atrial fibrillation, pulmonary hypertension, hypothyroidism, neuropathy, and gastroesophageal reflux disease (GERD) who presented initially with encephalopathy and shortness of breath. The patient has had a complicated hospital stay with continued issues with her mental status and with encephalopathy, which has been somewhat of an unclear source. There was concern initially for infection or sepsis related encephalopathy and she had been on broad-spectrum antibiotics, which were recently de-escalated to ceftriaxone. She also had evidence of worsening hypothyroidism and there was concern for Pamela's encephalopathy and so she had been given high dose Solu-Medrol, which was given yesterday. Today, she had worsening obtundation and there was concern for airway protection. The patient was also hypotensive, in shock, and required vasopressor administration. She was subsequently intubated, placed on mechanical ventilation, and transferred to the intensive care unit (ICU) for further management. 1. Neurologic: The patient presented with encephalopathy and had a previous history of gait disturbances, as well as questionable episodes of "blacking out." She was being seen by neurology as an outpatient and had previous evaluation including an MRI and has had multiple brain imaging during this admission, which showed no acute intracranial pathology. The patient was thought to have the possibility of having Pamela's encephalitis given her elevated thyroid peroxidase antibody and some slight worsening in her thyroid function, although on her brain MRI had not shown any significant abnormality. She was given Solu-Medrol 1 gram yesterday and so far has not had any improvement in her mental status. - The patient currently appears to have sepsis with fever and increased leukocytosis, although some of that may be reactionary to the steroids. With her hypotension, there is also a concern for septic shock, which may also be contributing to her ongoing encephalopathy currently. - Given the possibility for infection and with her neurologic complaints, a lumbar puncture was attempted by anesthesia, which was unsuccessful. I was able to get a lumbar puncture done successfully with clear cerebrospinal fluid (CSF) fluid and with the initial fluid studies not consistent with an infectious etiology. The protein and the oligoclonal bands are still pending. - Will continue with steroids given her shock; however, will change her to hydrocortisone at stress doses currently. - The patient is on Versed p.r.n. only as even with intubation, she is still minimally responsive. She does have some almost posturing movements at times. Will continue to monitor closely for any possible seizures and will give Versed if needed for seizure activity. - Will follow-up the final results of her CSF studies. 2. Cardiac: Patient with a history of atrial fibrillation previously on anticoagulation. She also has a history of pulmonary hypertension. Noted on this admission echocardiogram with some evidence of right ventricular dysfunction. - The patient is with shock likely secondary to sepsis with a questionable source currently. - The patient is on Levophed currently for blood pressure support to maintain a mean arterial pressure (MAP) above 65, but was on vasopressin initially as well. Will continue Levophed and add vasopressin if needed to maintain a MAP above 65. - The patient did have lactic acidosis, which has trended down slightly. Will continue to monitor and trend. - The patient does appear to have evidence of atrial fibrillation and is tachycardic, although this is also in the setting of a high fever. If she has continued episodes of rapid ventricular response (RVR), then she made need additional medication for rate control and given her shock and hypotension and already being on digoxin, would consider amiodarone. - The patient did have troponins initially, which were negative. She is at risk with her history, however, for demand ischemia so we need to monitor closely, particularly if there is telemetry or on EKG. Her EKG today did not show any change from her chronic. 3. Pulmonary: The patient is currently intubated and on mechanical ventilation given her obtundation and concern for airway protection. She did initially have a right pleural effusion with a chest tube, which is still in place with evidence of a small residual pneumothorax, although no significant air leak noted on the chest tube. Her initial fluid studies were transudative and the effusion was thought to be secondary to fluid overload from her end-stage renal disease or from congestive heart failure (CHF). - The patient's chest x-ray does not show any worsening opacities or infiltrates. She does have atelectasis on the CT of the abdomen, pelvis, and lung views. - Will continue the patient on mechanical ventilation. She is on vent currently with pressure-regulated volume control (PRVC) with 440/20/40 and 5. - Will continue daily arterial blood gases (ABGs) and chest x-rays while intubated and continue with vent bundle care with chlorhexidine mouthwash and head of bed elevation. - The patient was on anticoagulation; however, given concern for possible gastrointestinal (GI) bleed, anticoagulation and aspirin was on hold. 4. Infectious disease (ID): The patient is with evidence of sepsis with leukocytosis, fever, and also likely septic shock given her hypotension and vasopressor requirements. The exact source of her infectious etiology is somewhat unclear. There was consideration initially for possible pneumonia given her altered mental status and the possibility of aspiration. There is the possibility on chest x-ray today of some left lower lobe opacity or atelectasis. Given her altered mental status, there was also consideration for central nervous system (CARDIO CLINICIAN) infection although her lumbar puncture, which was able to be performed today, did not show any significant findings suggestive for infectious etiology. The patient also has been having more bowel movement with loose stool. Had seven bowel movements yesterday; although, they do appear to be melanotic stool. Her abdomen and pelvis CT did not show evidence of colitis, but there was evidence of ileus and some fecal impaction and distention. The CT was also done without contrast, which is somewhat limiting. There is the possibility that she was on broad-spectrum antibiotic for a possible Clostridium difficile and so will attempt to resend a sample. Will add Flagyl as well for now and continue with the broad-spectrum antibiotic, which were further broadened today to vancomycin and Zosyn. - Will follow-up the results of the blood cultures, which were repeated today. - Will continue to trend procalcitonin to retail helper in further de-escalation of antibiotics. 5. Renal/Endocrine: Patient with a history of end-stage renal disease (ESRD) on hemodialysis. She has been getting her usual dialysis sessions on Saturday, , and Saturday and would be due for another dialysis session tomorrow. Today, she did have evidence of hyperkalemia, which we will continue to monitor and trend. Appreciate nephrology recommendations. Would need to see if she is able to tolerate regular hemodialysis through her fistula tomorrow or may need potential placement of hemodialysis catheter. 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 She was given IV steroids for the possibility of Pamela's encephalitis and she was also added on T3 in addition to her Synthroid. Will continue for now with stress dose hydrocortisone. - The patient was on various medications including Depakote, as well as gabapentin, which could have causes some altered mental status with drug-induced encephalopathy. These medications are now on hold. 6. Gastrointestinal (GI): Patient with episodes of melena with stool occult blood likely with an upper GI bleed. She was on aspirin, as well as anticoagulation previously, which is on hold. - Will continue with proton pump inhibitor (PPI) b.i.d. and with monitoring of her hemoglobin and hematocrit (H&H). Will get a type and screen. - Will continue with TEDs and SCDs for deep vein thrombosis (DVT) prophylaxis. CODE STATUS: The patient is currently a FULL CODE. Her , as well as her children a son and daughter have been updated as to her critical condition and her prognosis. There has been some discussion about a possibility for a DO NOT RESUSCITATE (DNR), although the family is going to continue to discuss her goals of care further. TOTAL CRITICAL CARE TIME: Not including any procedures approximately one hour and 50 minutes.
--- NOTE | 2020-07-21 12:55 | RO ---
OPERATIVE NOTE DATE OF OPERATION: 07/20/2020 PREOPERATIVE DIAGNOSES: Sepsis and encephalopathy. POSTOPERATIVE DIAGNOSES: Sepsis and encephalopathy. PROCEDURE: Lumbar puncture. SURGEON: Marleni Swartz MD INDICATION: Sepsis and encephalopathy. CONSENT: Consent was obtained from the patient's prior to the procedure. Indication, risks and benefits were explained at length. DESCRIPTION OF PROCEDURE: A time-out was performed prior to the procedure. Full sterile technique was maintained throughout the procedure including surgical cap, mask, protective eyewear, full gown, and sterile gloves. The patient was placed in the left lateral decubitus position with the knees drawn towards the chest with positioning help from the nursing staff. The area was cleansed and draped in usual sterile fashion using a Betadine scrub. Anesthesia was achieved using 1% Lidocaine. A 20 gauge 3.5 inch spinal needle was placed in the fourth to fifth lumbar interspace. Clear-colored cerebral spinal fluid was obtained. The opening pressure was approximately 13 cm H20. CSF was collected into four tubes. These were sent for the usual tests including one tube to be held for further analysis if needed. A sterile Band-Aid was placed over the puncture site. The patient had no immediate complications and tolerated the procedure well. Estimated blood loss was less than 1 mL. MTDD
--- NOTE | 2020-07-21 12:58 | CCN ---
CRITICAL CARE NOTE DATE: 07/21/2020 Mrs. Romero was transferred to the intensive care unit yesterday due to worsening respiratory status. She has been intubated. She is hypotensive, requiring pressors. She was given intravenous (IV) fluid yesterday; however, it did not help much with her blood pressure. Patient has end-stage renal disease and has been on maintenance hemodialysis. She is due for dialysis today. She had altered mentation, which did get worse yesterday and required intubation. Now she is sedated and completely unresponsive. She also has black-colored stool and has a rectal tube in place. She has no urine output due to end-stage renal disease. PHYSICAL EXAMINATION: Temperature 98.4 degrees Fahrenheit, heart rate 120 per minute, respiratory rate 22 per minute, blood pressure about 112/60 mmHg, and oxygen saturation 99% on 30% oxygen on the ventilator. Head is atraumatic. Neck veins difficult to be assessed. Heart sounds are irregular and tachycardic. Lungs have bilateral good air entry. Abdomen soft, and bowel sounds are present. Extremities without any cyanosis or clubbing. Left arm arteriovenous (AV) fistula is patent. Neurologically, she is unresponsive at present. Today's labs show sodium level 135, potassium 5.5, CO2 of 16, BUN 42, and creatinine 3.21. Glucose 169 and lactic acid 9.6. Calcium level 7.0. A troponin level is 0.12. WBC count 23.6, hemoglobin 10.0, and hematocrit 31.3. Platelets 384. MEDICATIONS: - vasopressin infusion - Levophed infusion - ibuprofen suspension 600 mg every 8 hours as needed for temperature above 102 degrees Fahrenheit - metronidazole 500 mg every 8 hours - hydrocortisone 100 mg every 8 hours - Zosyn 2.25 grams every 8 hours - She also received vancomycin 1000 mg one dose yesterday - DuoNeb 3 mL four times a day - Versed 2 mg every 15 minutes as needed for agitation - Cytomel 12.5 mcg twice a day - Protonix 40 mg twice a day intravenously - Levothyroxine 175 mcg daily - Tylenol 650 mg every 6 hours as needed for temperature above 101.5 - Flonase nasal spray ALLERGIES: She has allergy to contrast media, tape, CODEINE, and IODINE. PROBLEMS: 1. Septic shock. Patient is currently on Levophed and vasopressin. She is on appropriate antibiotics, including metronidazole, vancomycin, and Zosyn. Exact source of her sepsis remains unclear at this point. 2. End-stage renal disease. Patient is due for hemodialysis today. She is not likely to tolerate regular hemodialysis due to severe hypotension requiring two pressors. I have discussed with Dr. Swartz, who has advised that family is trying to make a decision about plan of care. Her is coming to visit at 2 p.m. today and then make a final decision about future care. Patient is likely to require continuous renal replacement therapy (CRRT) and will need a catheter, as AV fistula cannot be used for CRRT. At this point, we will wait for family's decision, and then nursing staff will notify me, and we will make plans for further care, depending upon the decision. 3. Hyperkalemia. She has mild hyperkalemia, for which at this point no urgent intervention is indicated. We will wait for a decision bout dialysis some time this afternoon and then treat it accordingly. 4. Melenic stools. Patient has large amount of dark-colored stool; however, her hemoglobin is stable so far. Complete blood count (CBC) should be repeated again in a few hours. 5. Respiratory failure. Patient remains on the ventilator; however, at this point she is only requiring 30% oxygen. Her volume status is still reasonably well compensated, even though she received about 2 liters of IV fluid yesterday. Thirty-three minutes of critical care time spent, during which no procedures were performed.
[2020-07-21] MEDS ORDERED: fentaNYL 100 MCG/2 ML INJECTION (J3010) As Ordered ONE (13:01)
[2020-07-21] MEDS: MIDAZOLAM INJ 2MG/2ML VIAL (J2250 PER 1MG) IV PRN (13:15)
[2020-07-21 14:12] LABS: Lyme Disease IgG/IgM Antibodie <0.91 ISR (0.00-0.90); Lyme Disease IgM Ab Quantitati <0.80 index (0.00-0.79)
[2020-07-21] MEDS ORDERED: fentaNYL 100 MCG/2 ML INJECTION (J3010) IV ONE (14:45)
--- NOTE | 2020-07-21 21:45 | DS.PDOC ---
Discharge Summary General Date of Admission Jul 17, 2020 at 16:12 Date of Discharge 07/21/20 Discharge Summary PROCEDURES PERFORMED DURING STAY: Right chest tube placement, endotracheal intubation, central line placement, arterial line placement, lumbar puncture ADMITTING DIAGNOSES: 1. Encephalopathy 2. Right pleural effusion s/p chest tube placement 3. Pulmonary hypertension 4. Pamela's thyroiditis 5. Acute hypoxemic Respiratory failure 6. Septic Shock 7. GIB 8. Afib with RVR 9. ESRD on HD DISCHARGE DIAGNOSES: 1. Encephalopathy 2. Right pleural effusion s/p chest tube placement 3. Pulmonary hypertension 4. Pamela's thyroiditis 5. Acute hypoxemic Respiratory failure 6. Septic Shock 7. GIB 8. Afib with RVR 9. ESRD on HD 10. Suspected bowel ischemia COMPLICATIONS/CHIEF COMPLAINT: Pleural effusion HISTORY OF PRESENT ILLNESS: History was obtained from the chart and from other collateral information as the patient was obtunded, and then subsequently intubated and on mechanical ventilation and unable to provide a history. Ms. Romero is a 79-year-old female with a past medical history of ESRD on hemodialysis Saturday, , and Saturday; atrial fibrillation on anticoagulation, pulmonary hypertension, hypothyroidism, GERD, neuropathy, history of headaches, and questionable neurologic deficits who had initially presented with worsening shortness of breath and altered mental status on 07/17/2020. The patient had fallen several days prior to her presentation after completing a session of dialysis when getting out of the shower and had landed on her right back where she developed an area of ecchymosis. Prior to this episode, she had been noted to have episodes of confusion at times, as well as a decline in her mobility. She was being evaluated by neurology for a history of migraines and previous gait disturbances. She has had MRIs done in the past as an outpatient for evaluation, which had shown microvascular changes. In the ED, the patient was noted to be hypoxic and was found to have a right-sided pleural effusion with concern initially for hemothorax, as she was on anticoagulation. She had a chest tube placed by cardiothoracic surgery, which drained straw colored fluid with no evidence of hemothorax. Fluid studies at that time appeared more transudative and was thought to be in the setting of her end-stage renal failure, as well as the possibility for CHF. The patient did have an echocardiogram done during this admission, which had shown normal EF with evidence of right ventricular failure with a moderately dilated right ventricle and RV free wall hypokinesis with at least moderate pulmonary hypertension and some degree of right ventricular pressure overload with a prominently dilated right atrium and IVC upper limits of normal suggestive of elevated central venous pressure. There was also evidence of [id number] mitral valve insufficiency. With placement of the chest tube, she had occlusion of her effusion. The patient was also continued with dialysis as per nephrology and was able to tolerate fluid removal in her usual hemodialysis sessions. She did also have some episodes of atrial fibrillation with RVR, but had been given digoxin, as well as bisoprolol for rate control. The patient also during her admission has been continuing to have episodes of a waxing and waning mental status with significant lethargy at times. She would occasionally say her name or a few sentences, but other times could be fairly obtunded. Initially, the patient had been given broad-spectrum antibiotic with vancomycin and Cefepime; however, she was then de-escalation to ceftriaxone as there was unclear infectious etiology initially. The patient was also noted to have some worsening control of her hypothyroidism despite being on her usual thyroid medication with Synthroid. 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 Neurology had recommended high dose Solu-Medrol 1 gram IV x3 days and she received her first dose yesterday evening. Endocrine was also consulted and had recommended the addition of T3 and continuing with her Synthroid. HOSPITAL COURSE: On 07/20 the patient was noted to be more obtunded than previous. She was also noted to have sonorous breath sounds and her blood pressure had also been decreasing. Critical care was consulted and Dr. Bassett had seen her immediately due to concerns with airway protection. Given her mental status, the patient was then intubated by Dr. Bassett using etomidate and rocuronium for rapid sequence intubation with a GlideScope. The patient was also noted to have worsening episodes of hypotension and was started on Levophed for blood pressure support in addition to vasopressin. Anesthesia was also consulted for lumbar puncture given her continued encephalopathy. The attempts at anesthesia were unsuccessful and so I attempted a lumbar puncture, which was successful and she did have clear CSF with a normal opening pressure and specimens were sent for studies. Patient was broadened on antibiotics to vancomycin and zosyn with the addition of flagyl later. In the ICU, the patient was having very variable blood pressure with a cuff that was on her forearm. She therefore had a femoral arterial line placed, which did show good waveform and a blood pressure that was better than seen with the cuff pressure. She was able to be titrated down on her Levophed and vasopressin, but was still requiring Levophed to maintain a MAP above 65. She did also receive fluid bolus of approximately 1.5 liters normal saline previously with questionable fluid response. The patient did also have a femoral triple lumen placed for additional access as the only access was a dual-lumen PICC line initially. The patient was also noted in the ICU to be febrile with temperature up to 103.1 rectally. She was given IV Tylenol 1 gram. Overnight patient was initially able to be weaned down on her pressor requirements. Later in the morning however patient was noted to have increasing lactic acidosis and increasing pressor requirements on near maximum doses of levophed and vasopression. She continued to have black stools in rectal tube. Suspect patient with bowel ischemia which may have been cause of her initial sepsis and GIB with worsening ischemic bowel with her septic shock. Patient was unable to have CRRT done due to her hemodynamic instability and shock. Patient's and children were updated as to her poor prognosis. The decision was made then for palliative extubation and comfort measures only. Patient's pressors were discontinued and she was extubated. Patient soon at 1:21pm. DISCHARGE MEDICATIONS: Please see below. ALLERGIES: Please see below. PHYSICAL EXAMINATION ON DISCHARGE: VITAL SIGNS: Please see below. GENERAL: The patient is intubated and is not on any continuous sedation. She received versed yesterday afternoon. No further doses overnight and is not responsive to painful stimuli, no gag reflex. HEENT: Normocephalic, atraumatic. Pupils are reactive to light bilaterally. There is pale conjunctivae noted. Moist mucous membranes noted. NECK: Supple. Trachea is midline. There is no palpable cervical adenopathy. CARDIOVASCULAR: Tachycardic, irregularly irregular. Normal S1, S2. Unable to clearly auscultate any murmurs. PULMONARY: There are coarse ventilator breath sounds bilaterally with a few crackles at the bases. No wheezing or rhonchi noted. ABDOMEN: Obese, soft, nontender, and nondistended. EXTREMITIES: There is ecchymosis noted on the right side from her previous fall. There is no significant lower extremity edema noted bilaterally. LABORATORY DATA: Please see below. IMAGING: Head CT 07/20/21 showed age-related volume loss and white matter changes, but no acute intracranial findings. CT of the abdomen and pelvis in the lung bases showed a right-sided chest tube with a small pneumothorax with small pleural fluid. There was also bibasilar atelectasis noted. The liver showed stable hypodensity in the posterior segment of the right lobe likely representing a cyst with possible similar hypodense lesion in the lateral segment of the left lobe. Status post cholecystectomy with compensatory intrahepatic and extrahepatic biliary ductal dilation noted. There is diffuse bilateral polycystic kidney disease with a few nonobstructing infrarenal calculi and no evidence of acute perinephric stranding or hydroureteronephrosis. The patient is status post gastric bypass surgery with NG tube in the residual portion of the stomach. There is moderate fecal stasis and air-filled distended loops of bowel suggesting an underlying ileus. There is fecal impaction at the rectosigmoid with some distention, but no free air to suggest perforation. PROGNOSIS: DISCHARGE PLAN: DISPOSITION: . DISCHARGE INSTRUCTIONS: None DISCHARGE CONDITION: TIME SPENT ON DISCHARGE: Greater than 30minutes. Vital Signs/I&Os Vital Signs Date Time Temp Pulse Resp B/P (MAP) Pulse Ox O2 Delivery O2 Flow Rate FiO2 07/21/20 13:00 100.6 115 21 102/52 (69) Ventilator 30.0 07/21/20 12:00 30 07/21/20 10:00 90 I&O- Last 24 Hours up to 6 AM 07/21/20 06:00 Intake Total 3297.8 ml Output Total 150 ml Balance 3147.8 ml Laboratory Data Labs 24H Laboratory Tests 2 07/21/20 01:30: Clostridium difficile [id number] PRESUMPTIVE NEGATIVE, Clostridium difficile Toxin (PCR) NEGATIVE 07/21/20 04:00: Nucleated Red Blood Cells % (auto) 2.7H, Anion Gap 14, Glomerular Filtration Rate 14.9L, Calcium Level 7.0L, Random Vancomycin Level 20.0 07/21/20 05:47: Blood Gas Bicarbonate Standard 17.2L, Arterial Blood pH 7.403, Arterial Blood Partial Pressure CO2 23.4L, Arterial Blood Partial Pressure O2 147.5H, Arterial Blood Total CO2 15.0L, Arterial Blood HCO3 14.3L, Arterial Blood Base Excess - 9.0L, Arterial Blood Oxygen Saturation 98.7 07/21/20 09:10: Bedside Glucose (Misc Panel) 89 07/21/20 10:31: Lactic Acid Level 9.6*H, Troponin I 0.12#H CBC/BMP Laboratory Tests 07/21/20 04:00 FSBS Laboratory Tests Test 07/21/20 09:10 Range/Units Bedside Glucose (Misc Panel) 89 83-110 MG/DL Microbiology Microbiology 07/20/20 Gram Stain - Final, Resulted 07/20/20 CSF Culture, Resulted Pending 07/20/20 - Final, Complete 07/20/20 Blood Culture - Preliminary, Resulted No growth after 24 hours . All specim... 07/20/20 Blood Culture - Preliminary, Resulted No growth after 24 hours . All specim... 07/19/20 Stool Occult Blood ([facility]) - Final, Complete 07/17/20 Acid Fast Stain, Received Pending 07/17/20 Mycobacterial Culture, Received Pending 07/17/20 Fungal Smear, Received Pending 07/17/20 Fungal Culture, Received Pending 07/17/20 Gram Stain - Final, Complete 07/17/20 Anaerobic Culture - Final, Complete 07/17/20 Body Fluid Culture - Final, Complete 07/17/20 Respiratory Virus Panel (PCR) ([facility]) - Final, Complete 07/17/20 Blood Culture - Preliminary, Resulted No Growth after 72 hours. All specime... 07/17/20 Blood Culture - Preliminary, Resulted No Growth after 72 hours. All specime... Discharge Medications Scheduled Amitriptyline HCl (Amitriptyline HCl) 50 Mg Tablet, 50 MG PO QHS, (Reported) Apixaban (Eliquis) 5 Mg Tablet, 5 MG PO BID, (Reported) Aspirin (Aspirin EC) 81 Mg Tablet.dr, 81 MG PO DAILY, (Reported) Atorvastatin Calcium (Atorvastatin Calcium) 20 Mg Tablet, 20 MG PO DAILY, (Reported) Cholecalciferol (Vitamin D3) (Vitamin D3) 25 Mcg Capsule, 25 MCG PO DAILY, (Reported) Diltiazem HCl (Diltiazem HCl) 120 Mg Tablet, 120 MG PO TID, (Reported) Divalproex Sodium (Divalproex Sodium) 250 Mg Tablet.dr, 250 MG PO BID, (Reported) Ferric Citrate (Auryxia) 210 Mg Tablet, 420 MG PO WM, (Reported) Fexofenadine HCl (Mali Allergy) 180 Mg Tab, 180 MG PO DAILY, (Reported) Folic Acid/Vit B Complex and C (Renal-Lucero Tablet) 0.8 Mg Tablet, 1 TAB PO DAILY, (Reported) Furosemide (Furosemide) 20 Mg Tablet, 20 MG PO DAILY, (Reported) Gabapentin (Gabapentin) 300 Mg Cap, 300 MG PO QHS, (Reported) Gabapentin (Gabapentin) 100 Mg Capsule, 100 MG PO BID, (Reported) QAM, NOON. Levothyroxine Sodium (Synthroid) 175 Mcg Tab, 175 MCG PO DAILY, (Reported) Lidocaine/Prilocaine (Lidocaine-Prilocaine Cream) 2.5%/2.5% Cream..g., 1 DOSE TOP 3XW, (Reported) SATURDAY, SATURDAY AND SATURDAY PRIOR TO DIALYSIS Melatonin (Melatonin) 10 Mg Tablet, 10 MG PO QHS, (Reported) Ubidecarenone (Co Q-10) 200 Mg Capsule, 200 MG PO DAILY, (Reported) Zinc Sulfate (Zinc Sulfate) 220 Mg Capsule, 220 MG PO DAILY, (Reported) Scheduled PRN Fluticasone Propionate (Flonase Allergy Relief) 50 Mcg/Act Spr, 1 SPRAY NARES DA LEONILA PRN for NASAL CONGESTION, (Reported) Omeprazole (Omeprazole) 40 Mg Capsule.dr, 40 MG PO DAILY PRN for HEARTBURN, (Reported) Polyethylene Glycol 3350 (Polyethylene Glycol 3350) 17 Gm Powd.pack, 17 GM PO DAILY PRN for CONSTIPATION, (Reported) Allergies Coded Allergies: Ryan (Unverified Allergy, Severe, ANAPHYLAXIS, 07/16/17) FISH (Unverified Allergy, Severe, ANAPHYLAXIS, 01/28/17) TAPE (Verified Allergy, Mild, ADHESIVES-RASH AND REDNESS, 01/28/17) Contrast Media (Verified Allergy, Unknown, PATIENT STATES SHE CAN TOLERATE PO, 04/26/20) FRUIT (Verified Allergy, Unknown, FRUIT WITH fuzzy SKIN, 04/26/20) iodine (Verified Allergy, Unknown, 12/30/19) codeine (Verified Adverse Reaction, Mild, stomach upset, 01/19/20) PEDRITO WRIGHT MD Jul 21, 2020 21:45
[2020-07-26 16:12] LABS: MYELIN BASIC PROTEIN, CSF 9.8 ng/mL (0.0-5.6)
== END 2020-07-21 13:21 | disposition expired | DRG 871 ==
LOC: M ED 12:57 → M ED INP 16:12 → M PCU 16:38 → M ICU 07-20 11:10
PROVIDERS: ADMIT Internal Medicine Nephrology; ATTEND Internal Medicine Pulmonary Disease
PROC: 0W9900Z Drainage of Right Pleural Cavity with Drainage Device, Open Approach (ICD-10-PCS; principal; 2020-07-17)
PROC: 02HV33Z Insertion of Infusion Device into Superior Vena Cava, Percutaneous Approach (ICD-10-PCS; 2020-07-18)
PROC: 5A1D70Z Performance of Urinary Filtration, Intermittent, Less than 6 Hours Per Day (ICD-10-PCS; 2020-07-19)
PROC: 0BH17EZ Insertion of Endotracheal Airway into Trachea, Via Natural or Artificial Opening (ICD-10-PCS; 2020-07-20)
PROC: 02HV33Z Insertion of Infusion Device into Superior Vena Cava, Percutaneous Approach (ICD-10-PCS; 2020-07-20)
PROC: 04HY32Z Insertion of Monitoring Device into Lower Artery, Percutaneous Approach (ICD-10-PCS; 2020-07-20)
PROC: 009U3ZX Drainage of Spinal Canal, Percutaneous Approach, Diagnostic (ICD-10-PCS; 2020-07-20)
DX: A41.9 Sepsis, unspecified organism (principal); N18.6 End stage renal disease; G92 Toxic encephalopathy; J96.01 Acute respiratory failure with hypoxia; R65.21 Severe sepsis with septic shock; J90 Pleural effusion, not elsewhere classified; I13.2 Hypertensive heart and chronic kidney disease with heart failure and with stage 5 chronic kidney disease, or end stage renal disease; E87.2 Acidosis; I50.32 Chronic diastolic (congestive) heart failure; K92.2 Gastrointestinal hemorrhage, unspecified; Z51.5 Encounter for palliative care; I48.91 Unspecified atrial fibrillation; E03.9 Hypothyroidism, unspecified; K21.9 Gastro-esophageal reflux disease without esophagitis; G62.9 Polyneuropathy, unspecified; E06.3 Autoimmune thyroiditis; I27.20 Pulmonary hypertension, unspecified; S20.211A Contusion of right front wall of thorax, initial encounter; F39 Unspecified mood [affective] disorder; R29.6 Repeated falls; I65.23 Occlusion and stenosis of bilateral carotid arteries; I25.10 Atherosclerotic heart disease of native coronary artery without angina pectoris; E66.9 Obesity, unspecified; Z98.84 Bariatric surgery status; Z87.442 Personal history of urinary calculi; Z79.01 Long term (current) use of anticoagulants; Z79.899 Other long term (current) drug therapy; Z79.82 Long term (current) use of aspirin; Z86.73 Personal history of transient ischemic attack (TIA), and cerebral infarction without residual deficits; Z88.5 Allergy status to narcotic agent; Z99.2 Dependence on renal dialysis; Z88.8 Allergy status to other drugs, medicaments and biological substances; Z91.041 Radiographic dye allergy status; Z91.013 Allergy to seafood; Z91.018 Allergy to other foods; Z90.49 Acquired absence of other specified parts of digestive tract; W18.09XA Striking against other object with subsequent fall, initial encounter; Y92.012 Bathroom of single-family (private) house as the place of occurrence of the external cause; Y93.E1 Activity, personal bathing and showering; Y99.8 Other external cause status